=== PATIENT | female | born 1945 | race Caucasian/White ===

== ENCOUNTER → 2017-11-23 08:58 | Outpatient (CLI) | payer MEDICARE, SELFPAY ==
[2017-11-23 12:22] LABS: Absolute Lymphocyte Count 1.97 X10^3/ul (0.83-4.51); Absolute Neutrophil Count 3.4 X10^3/uL (2.0-7.7); Basophil# 0.02 X10^3/uL; Basophil% 0.3 % (0-1); Eosinophil# 0.21 X10^3/uL; Eosinophils% 3.5 % (0-5); Hematocrit 43.5 % (37-47); Hemoglobin 14.1 g/dl (12.0-15.0); Lymphocyte # 1.97 X10^3/ul (4.0); Lymphocyte % 32.4 % (19-41); Mean Corp Hgb Conc 32.4 g/gl (32-36); Mean Corpuscular Hgb 27.2 pg (27.0-32.0); Mean Corpuscular Volume 83.8 fL (81-99); Mean Platelet Vol. 11.4 fl (6.2-12.0); Monocyte# 0.43 X10^3/uL; Monocyte% 7.1 % (0-10); Neutrophil # 3.44 X10^3/uL (2.7-7.7); Neutrophil % 56.5 % (47-70); Platelet Count 164 K/mm3 (150-450); RBC Distribution Width CV 14.4 % (11.6-14.6); RBC Distribution Width SD 44.2 fl (35.1-43.9); Red Blood Count 5.19 M/mm3 (4.2-5.4); White Blood Count 6.1 K/mm3 (4.4-11.0)
[2017-11-23 12:27] LABS: POSITIVE COUNT NO; POSITIVE DIFFERENTIAL NO; POSITIVE MORPHOLOGY NO
[2017-11-23 12:40] LABS: AST(SGOT) 23 U/L (15-37); Alanine Aminotransfer ALT/SGPT 29 U/L (13-56); Albumin, Serum 3.5 g/dL (3.2-5.0); Alkaline Phosphatase 91 U/L (45-117); Anion Gap 9 (5-15); BUN 17 mg/dL (7-18); BUN/Creat Ratio 14.5 RATIO (10-20); Calcium,Total 8.3 mg/dL (8.5-10.1); Chloride 109 mmol/L (98-107); Cholesterol 182 mg/dL (200); Creatinine, Serum 1.17 mg/dL (0.55-1.02); EST Glomerular Filtration Rate 49 mL/min (>60); Est Glom Filt Rate - Afr Amer 59 mL/min (>60); Globulin 3.6 g/dL (2.2-4.2); Glucose 117 mg/dL (74-106); High Density Lipoprotein 41 mg/dL; Potassium 3.9 mmol/L (3.5-5.1); Protein, Total 7.1 g/dL (6.4-8.2); Sodium Level 143 mmol/L (136-145); Triglycerides 155 mg/dL; Very Low Density Lipoprotein 31 mg/dL (5-40)
== END ==
LOC: MTLAB 09:06
PROVIDERS: Family Provider Internal Medicine; PCP Internal Medicine; Visit Provider Internal Medicine
DX: I10 Essential (primary) hypertension (principal)
CPT/HCPCS: 36415; 80053; 80061; 85025

== ENCOUNTER 2017-12-06 23:26 | Observation (INO) | payer MEDICARE, SELFPAY ==
[2017-12-06 23:26] VITALS: BP 198/123; PULSE 71; RESP 16; TEMP 36.7; O2SAT 94; BMI 41.4
[2017-12-06 23:38] VITALS: O2SAT 98
[2017-12-06 23:52] LABS: Absolute Lymphocyte Count 2.69 X10^3/ul (0.83-4.51); Absolute Neutrophil Count 5.7 X10^3/uL (2.0-7.7); Basophil# 0.03 X10^3/uL; Basophil% 0.3 % (0-1); Eosinophil# 0.28 X10^3/uL; Hemoglobin 14.6 g/dl (12.0-15.0); Lymphocyte # 2.69 X10^3/ul (4.0); Lymphocyte % 28.4 % (19-41); Mean Corpuscular Hgb 27.9 pg (27.0-32.0); Mean Corpuscular Volume 82.2 fL (81-99); Mean Platelet Vol. 11.1 fl (6.2-12.0); Monocyte# 0.75 X10^3/uL; Monocyte% 7.9 % (0-10); Neutrophil % 60.2 % (47-70); Platelet Count 183 K/mm3 (150-450); RBC Distribution Width CV 14.3 % (11.6-14.6); RBC Distribution Width SD 43.4 fl (35.1-43.9); Red Blood Count 5.23 M/mm3 (4.2-5.4); White Blood Count 9.5 K/mm3 (4.4-11.0)
[2017-12-06 23:57] LABS: POSITIVE COUNT NO; POSITIVE DIFFERENTIAL NO; POSITIVE MORPHOLOGY NO
[2017-12-06 23:58] LABS: Prothrombin Time (Protime)PT. 13.5 SECONDS (11.7-14.9)
[2017-12-07] VITALS (14 sets, daily range): BP systolic 122–172; BP diastolic 61–134; PULSE 40–64; RESP 16; TEMP 36.3–36.7; O2SAT 92–100; BMI 40.8; BMI 40.9
[2017-12-07 00:07] LABS: BUN 27 mg/dL (7-18); Creatinine, Serum 1.37 mg/dL (0.55-1.02); EST Glomerular Filtration Rate 40 mL/min (>60); Estimated Creatinine Clearance 29.79 ml/min; Glucose 157 mg/dL (74-106)
[2017-12-07 00:08] LABS: Anion Gap 5 (5-15); BUN/Creat Ratio 19.7 RATIO (10-20); Calcium,Total 8.7 mg/dL (8.5-10.1); Chloride 108 mmol/L (98-107); Est Glom Filt Rate - Afr Amer 49 mL/min (>60); Potassium 4.2 mmol/L (3.5-5.1); Sodium Level 141 mmol/L (136-145)
[2017-12-07] MEDS: Nitroglycerin Oint 1 INCH PACKET 0.5 INCH TRANSDERM. (00:08)
[2017-12-07] MEDS: Aspirin 81 MG TAB.CHEW 324 MG PO (00:10)
--- NOTE | 2017-12-07 00:45 | NURSING ---
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
[2017-12-07] MEDS: amLODIPine 10 MG Tablet PO (00:46)
--- NOTE | 2017-12-07 00:46 | PCM.HP.STD ---
Problem List (1) Hypertension Status: Acute (2) Chest pain Status: Acute (3) Left knee pain Status: Chronic (4) Hypersomnolence Status: Chronic (5) Breast lump Status: Resolved Comment: Benign Biopsy (6) Blood clot in vein Status: Resolved (7) Vision problems Status: Chronic (8) Pneumonia Status: Resolved (9) Kidney stones Status: Chronic (10) H/O emotional problems Status: Chronic (11) Chronic bronchitis Status: Chronic (12) Asthma Status: Chronic (13) Arthritis Status: Chronic (14) Environmental allergies Status: Chronic History of Present Illness Date of Admission: 12/07/17 Chief Complaint: Chest pain The patient is a 72 year old F with history of hypertension on amlodipine chest pain since afternoon today. She had midsternal chest pain, feeling like a pressure with no radiation without precipitating, exacerbating or relieving factor. Patient also felt that she could not breathe. She denies diaphoresis, near syncope or syncope. In ED, her blood pressure was found very high 198/123, heart rate 71. After giving blood pressure medicine, BP is 160/134. No hypoxia. EKG normal sinus rhythm. [] Past Medical History Past Medical History (Chronic Problems): Chronic Problems (Last Updated 11/21/17 @ 14:28 by Ruby Syed) Left knee pain (Chronic) Hypersomnolence (Chronic) Vision problems (Chronic) Kidney stones (Chronic) H/O emotional problems (Chronic) Chronic bronchitis (Chronic) Asthma (Chronic) Arthritis (Chronic) Environmental allergies (Chronic) Medical History: Medical History (Last Updated 11/21/17 @ 14:28 by Ruby Syed) Breast lump (Resolved) N63.0 Benign Biopsy Blood clot in vein (Resolved) I82.90 Vision problems (Chronic) H54.7 Pneumonia (Resolved) J18.9 Kidney stones (Chronic) N20.0 High blood pressure (Chronic) I10 H/O emotional problems (Chronic) F48.9 Chronic bronchitis (Chronic) J42 Asthma (Chronic) J45.909 Arthritis (Chronic) M19.90 Environmental allergies (Chronic) Z91.09 Fractures involving multiple body regions T07.XXXA 2007 AA Heel, Rt Wrist, Ribs, Upper Rt Arm 2011 or 2012 Allergies Penicillins Allergy (Verified 11/21/17 14:10) Hives Home Medications: Ambulatory Orders Medication Instructions Recorded Amlodipine Besylate [Norvasc] 5 mg PO DAILY 12/06/17 Surgical History: Surgical History (Last Updated 11/21/17 @ 14:28 by Ruby Syed) History of hysterectomy Z90.710 1996 History of shoulder surgery Z98.890 Had a benign tumor History of tonsillectomy Z90.89 1971 Smoking Status: Never smoker - *Family History Maternal Family History: Family History (Last Updated 11/21/17 @ 14:20 by Ruby Syed) Father Alcoholism Asthma Mother Anxiety Blood clot in vein Myocardial infarction Grandmother Blood clot in vein Myocardial infarction Brother Myocardial infarction Aunt Breast cancer Grandmother CVA (cerebral vascular accident) Daughter Suicide attempt History Items: Heart Disease Sibling Family History: Family History (Last Updated 11/21/17 @ 14:20 by Ruby Syed) Father Alcoholism Asthma Mother Anxiety Blood clot in vein Myocardial infarction Grandmother Blood clot in vein Myocardial infarction Brother Myocardial infarction Aunt Breast cancer Grandmother CVA (cerebral vascular accident) Daughter Suicide attempt History Items: Heart Disease Review of Systems Constitutional: Denies: Chills, Fever, Weight Change HEENT: Denies: Head Aches, Sinus Congestion, Sinus Drainage Cardiovascular: Reports: Chest Pain, Chest Pressure. Denies: Palpitations Respiratory: Reports: Shortness of breath at rest. Denies: Cough, Sputum production Gastrointestinal: Denies: Abdominal Pain, Nausea, Vomiting Genitourinary: Denies: Dysuria Musculoskeletal: Denies: Joint Pain, Joint Tenderness Skin: Denies: Rash, Wounds Neurological: Denies: Numbness, Tingling, Focal weakness Psychiatric: Denies: Anxiety, Depression, Homicidal Ideations, Suicidal Ideations Hematologic/ Lymphatic: Denies: Easy Bruising, Easy Bleeding VTE Information - Inpt Only VTE Present on Admission: No VTE Mechan Device Prophylaxis: None VTE Pharm Prophylaxis ordered?: Yes Patient Problems: Active and Suspected Problems (Last Updated 11/21/17 @ 14:28 by Ruby Syed) Hypertension (Acute) Chest pain (Acute) - Physical Exam General: Alert, Oriented x3, Cooperative HEENT: Atraumatic, PERRLA, EOMI, Normocephalic Neck: Supple, No JVD, Negative Carotid Bruits Lungs: Clear to auscultation, Normal air movement Cardiovascular: Regular rate, Normal S1, Normal S2, No murmurs Abdomen: Bowel Sounds Present, Soft, Non Tender Extremities: Capillary Refill Less than 3 Seconds, Edema Skin: No rashes, No breakdown Musculoskeletal: No Tenderness to Palpation of Joints or Extremities Neurological: Cranial nerves II-XII grossly intact Psych/Mental Status: Normal Affect, Appropriate Vital Signs Temp Pulse Resp BP Pulse Ox 98.0 F 64 16 172/85 H 98 12/06/17 23:26 12/07/17 00:08 12/06/17 23:26 12/07/17 00:08 12/06/17 23:38 Assessment/Plan All Active Problems (Last Updated 11/21/17 @ 14:28 by Ruby Syed) Hypertension (Acute) Chest pain (Acute) Breast lump (Resolved) Blood clot in vein (Resolved) Pneumonia (Resolved) The patient is a 72 year old F with history of hypertension on amlodipine chest pain since afternoon today. She had midsternal chest pain, feeling like a pressure with no radiation without precipitating, exacerbating or relieving factor. Patient also felt that she could not breathe. She denies diaphoresis, near syncope or syncope. In ED, her blood pressure was found very high 198/123, heart rate 71. After giving blood pressure medicine, BP is 160/134. No hypoxia. EKG normal sinus rhythm. Initial blood work up in the ER shows troponin negative. Creatinine 1.37, BUN 27 otherwise not remarkable. Chest x-ray no active pulmonary disease. 1. Atypical chest pain with concern of acute coronary syndrome: Patient is being admitted on PCU floor. On ACS protocol with serial troponin enzymes and Lexiscan nuclear stress test tomorrow morning. On aspirin, nitroglycerin ointment. 2. Hypertensive urgency: Patient received 10 mg amlodipine in ER. Started on lisinopril 10 mg daily. On metoprolol 12.5 mg p.o. twice daily. 3. 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 She had ankle edema even before starting amlodipine. DVT prophylaxis: On Lovenox 40 mils subcu daily. This note was generated with [employer] dictation software. Every effort was made to ensure accuracy, however computerized manager data warehousing mistakes may persist. Code Visit OBSV E&M: 22083 Initial observation care L3
--- NOTE | 2017-12-07 00:50 | ED.DCSUM_ITS ---
- ER Visit Summary Date of Service: 12/07/17 Chief Complaint: Chest pain History of Present Illness: The patient is a 72 F presenting for evaluation secondary chest pain. Patient reports that since about noon today she has had continuous chest pain that she describes as a generalized heaviness. It was associated with exertional shortness of breath. Patient reports that the pain is somewhat worse when she exerts herself. She does have an underlying history of hypertension, denies any cardiovascular history. She does have a history of DVT in the past, but denies any recent travel surgery hemoptysis or exogenous hormone use. Patient states that she took some nitroglycerin at home that belongs to her and it made her chest pain feel better. She has never had cardiac stress testing in the past. Physical Examination: Vital signs are within normal limits, except for hypertension blood pressure 190s over 130s patient is afebrile. General: Patient is well-nourished well-developed and in no acute distress. Head: Normocephalic, atraumatic Eyes: Pupils equal round and reactive bilaterally, extra occular motion intact bialterally ENT: Moist mucous membranes Neck: Supple, no lymphadenopathy, no JVD, no meningismus CVS: Heart regular rate and rhythm, no murmurs, rubs or gallops, radial pulses 2 + bilaterally, occasional extrasystoles Resp: Respirations nondistressed, lung sounds clear bilaterally Abdomen: Soft, nontender, nondistended, no palpable masses, normal bowel sounds Back: Nontender Extremities: Nontender, atraumatic, active full range of motion, no peripheral edema Skin: warm, no rashes, no petechia Neuro: Alert and oriented x 4, CN 2-12 intact, no lateralizing neurological defecits Psyc: Normal affect Test Results: EKG shows normal sinus rhythm with occasional PACs no evidence of acute ST segment changes or T-wave changes. CBC chemistry troponin were unremarkable, chest x-ray was unremarkable Emergency Department Course and Treatment: Patient presented for evaluation secondary chest pain. She was significantly hypertensive in the emergency department so I half inch of nitroglycerin paste was placed on her chest repeat evaluation showed the patient to be pain-free. Her heart score is 4, I believe she requires admission. I discussed this with the hospitalist. Disposition: Admission Impression: 1. Chest pain 2. Poorly controlled hypertension This note was generated with [employer] dictation software. It may contain incorrect words, spelling, and punctuation that were not noted in review of the chart prior to signing ED Disposition - Plan for ED Patient: Chief Complaint: Chest Pain
[2017-12-07] MEDS: Metoprolol Tartrate 25 MG Tablet 12.5 MG PO (01:55)
[2017-12-07 02:56] LABS: BNP,B-Type NATRIURETIC PEPTIDE 28.4 pg/mL (0-100)
[2017-12-07 05:57] LABS: Absolute Lymphocyte Count 2.57 X10^3/ul (0.83-4.51); Absolute Neutrophil Count 4.2 X10^3/uL (2.0-7.7); Basophil# 0.02 X10^3/uL; Basophil% 0.3 % (0-1); Eosinophil# 0.28 X10^3/uL; Eosinophils% 3.5 % (0-5); Hematocrit 40.6 % (37-47); Hemoglobin 12.8 g/dl (12.0-15.0); Lymphocyte # 2.57 X10^3/ul (4.0); Lymphocyte % 32.3 % (19-41); Mean Corp Hgb Conc 31.5 g/gl (32-36); Mean Corpuscular Hgb 26.7 pg (27.0-32.0); Mean Corpuscular Volume 84.8 fL (81-99); Mean Platelet Vol. 10.9 fl (6.2-12.0); Monocyte# 0.87 X10^3/uL; Monocyte% 10.9 % (0-10); Neutrophil % 52.9 % (47-70); Platelet Count 151 K/mm3 (150-450); RBC Distribution Width CV 14.3 % (11.6-14.6); RBC Distribution Width SD 44.6 fl (35.1-43.9); Red Blood Count 4.79 M/mm3 (4.2-5.4)
[2017-12-07] MEDS: Aspirin E.C. 81 MG Tablet PO (06:01)
[2017-12-07 06:02] LABS: POSITIVE COUNT NO; POSITIVE DIFFERENTIAL NO; POSITIVE MORPHOLOGY NO
[2017-12-07] MEDS: Lisinopril 10 MG Tablet PO (06:02)
[2017-12-07 06:11] LABS: Partial Thromboplast Time 27.4 Seconds (24.1-36.2)
[2017-12-07 06:21] LABS: Anion Gap 10 (5-15); BUN 30 mg/dL (7-18); BUN/Creat Ratio 25.6 RATIO (10-20); Calcium,Total 8.3 mg/dL (8.5-10.1); Chloride 110 mmol/L (98-107); Cholesterol 156 mg/dL (200); Creatinine, Serum 1.17 mg/dL (0.55-1.02); EST Glomerular Filtration Rate 49 mL/min (>60); Est Glom Filt Rate - Afr Amer 59 mL/min (>60); Estimated Creatinine Clearance 34.88 ml/min; Glucose 126 mg/dL (74-106); High Density Lipoprotein 41 mg/dL; Potassium 4.4 mmol/L (3.5-5.1); Sodium Level 144 mmol/L (136-145); Thyroid Stim Hormone (TSH) 0.91 uIU/mL (0.358-3.74); Triglycerides 103 mg/dL; Very Low Density Lipoprotein 21 mg/dL (5-40)
--- NOTE | 2017-12-07 13:10 | PCM.DC ---
- Discharge Diagnoses Current Active Problems: Current Active and Chronic Problems (Last Updated 11/21/17 @ 14:28 by Ruby Syed) Hypertension (Acute) Chest pain (Acute) You will use the following diet at home:: Cardiac Discharge Activity: Return to Normal Activity Call your doctor if you observe: Shortness of breath, Dizziness, Fainting spells, Chest pain Allergies/Adverse Reactions: Allergies Penicillins Allergy (Verified 11/21/17 14:10) Hives Medications to take at Discharge Amlodipine [Norvasc] 10 mg PO DAILY #30 tab 12/07/17 Lisinopril [Zestril] 10 mg PO DAILY #30 tab 12/07/17 The following prescriptions were given: Amlodipine [Norvasc] 10 mg PO DAILY #30 tab Lisinopril [Zestril] 10 mg PO DAILY #30 tab Primary Care Physician: Michael Corcoran MD [Primary Care Provider] - Please follow up with your Primary Care Physician in: 1 Week Test Results: Test results from this visit will be discussed in further detail at your follow-up appointment, if applicable. Proposed Discharge Date: 12/07/17
--- NOTE | 2017-12-07 13:12 | PCM.DC.SUM ---
<Bee Ramos - Last Filed: 12/07/17 13:20> Discharge Date and Diagnosis Date of Admission: 12/07/17 Date of Discharge: 12/07/17 - Primary Discharge Diagnosis Active and Suspected Problems (Last Updated 11/21/17 @ 14:28 by Ruby Syed) 1. Hypertensive urgency 2. Chest pain, ACS ruled out- suspect secondary to uncontrolled hypertension. - Secondary Discharge Diagnosis Chronic Problems (Last Updated 11/21/17 @ 14:28 by Ruby Syed) Left knee pain (Chronic) Hypersomnolence (Chronic) Vision problems (Chronic) Kidney stones (Chronic) H/O emotional problems (Chronic) Chronic bronchitis (Chronic) Asthma (Chronic) Arthritis (Chronic) Environmental allergies (Chronic) Hospital Course and Treatment Imaging Results: Diagnostic Data Chest X-Ray 12/06/17 23:39 IMPRESSION: No active pulmonary disease. Electronically Signed: Mohit Frank MD at 0:17 EDT Tel , Service support , Operations: None Procedures: - - Stress echo Summary of Care Provided: The patient is a 72 year old F admitted 12/07/2017 due to chest pain. She has a past medical history of hypertension. Denies other history of heart disease. ACS ruled out. Troponin negative. Patient underwent stress echo which was negative for ischemia. EF 60%. No wall motion abnormalities. Patient denies further chest pain. She was noted to have hypertensive urgency on admission with a blood pressure of 198/123. Her home amlodipine regimen increased to 10 mg daily on admission and patient was started on lisinopril 10 mg daily. Blood pressure improved on current regimen. Blood pressure at discharge 122/62. Fasting lipid panel within normal limits. Patient will need further blood pressure monitoring at discharge. Follow-up with primary care physician in 1 week. Her chronic medical conditions including chronic bronchitis/asthma, arthritis, seasonal allergies and chronic kidney disease stage III are stable at this time. Patient does have a remote history of DVT and 1990 which has not reoccurred. Patient denies calf discomfort or increased lower extremity swelling. Patient states she does have intermittent lower extremity bilateral swelling chronically. Patient seen and examined prior to discharge. Alert, oriented, no acute distress. Denies further chest pain. Denies shortness of breath. Lungs clear. Heart rate regular in rhythm, mild bradycardia. Abdomen soft, nontender, obese. Neuro grossly intact. Skin intact. No edema. Normal affect. Vital signs stable. This patient was seen by TYSHAWN Ann under the supervision of Dr. Morataya. Discharge Diet: Low fat/ Low Cholesterol Discharge Activity: Return to Normal Activity Call your doctor if you observe: Shortness of breath, Dizziness, Fainting spells, Chest pain Home Medications: Medications to take at Discharge Amlodipine [Norvasc] 10 mg PO DAILY #30 tab 12/07/17 Lisinopril [Zestril] 10 mg PO DAILY #30 tab 12/07/17 Following Prescrptions Were Given to Patient: Amlodipine [Norvasc] 10 mg PO DAILY #30 tab Lisinopril [Zestril] 10 mg PO DAILY #30 tab Primary Care Physician: Michael Corcoran MD [Primary Care Provider] - Please follow up with your Primary Care Physician in: 1 Week Disposition: Home Minutes spent on discharge:: 35 Patient Condition:: Stable Medical Necessity - Tobacco Use Smoking Status: Never smoker Meaningful Use Info Meaningful Use Diagnoses (Choose all that apply): None applicable <Sharon Morataya E - Last Filed: 12/07/17 14:37> Discharge Date and Diagnosis - Secondary Discharge Diagnosis Chronic Problems (Last Updated 11/21/17 @ 14:28 by Ruby Syed) Left knee pain (Chronic) Hypersomnolence (Chronic) Vision problems (Chronic) Kidney stones (Chronic) H/O emotional problems (Chronic) Chronic bronchitis (Chronic) Asthma (Chronic) Arthritis (Chronic) Environmental allergies (Chronic) Hospital Course and Treatment Imaging Results: 12/07/17 07:47 Stress Test Echo w/o Contrast [ECHO] Routine Procedures: - Summary of Care Provided: Hospitalist note: Discharge summary above reviewed and I agree with above discharge plan. Patient was admitted for chest pain for evaluation. Upon arrival to ER, blood pressure was highly elevated and maximum was 198/123 consistent with hypertensive urgency. There was no evidence of endorgan damage. Her EKG revealed no evidence of acute ischemic changes. Her troponin was negative ?3. Chest x-ray showed no acute findings. Patient was taking only admit to being 5 mg p.o. daily for hypertension. Because of elevated blood pressure, amlodipine was increased to 10 mg p.o. daily and she was started on lisinopril 10 mg p.o. daily. His blood pressure improved overnight. She underwent stress echocardiogram that revealed normal resting LV systolic function and without evidence of stress-induced myocardial ischemia as well as normal dobutamine stress echo with no wall motion abnormalities. ACS ruled out. Chest pain is likely due to elevated blood pressure. Patient discharged home in a stable medical condition, discharged on Norvasc 10 mg p.o. daily, discharged on lisinopril 10 mg p.o. daily, recommended follow-up with PCP in 1 week. - Physical Exam General: Alert, Oriented x3, Cooperative, No apparent distress. HEENT: Atraumatic, PERRLA, EOMI. Neck: Supple, No JVD, Negative Carotid Bruits, Trachea Midline, Thyroid Normal. Lungs: Clear to auscultation, Normal air movement, No rhonchi, No wheeze, No rales. Cardiovascular: Regular rate, Regular Rhythm, Normal S1, Normal S2, PMI Normal. Abdomen: Bowel Sounds Present, Soft, Non Tender, Non-Distended, No Hepato-splenomegaly, obese. Extremities: No clubbing, No cyanosis, No edema Skin: No rashes, No breakdown Neurological: Neuro grossly intact Vital Signs are stable. This note was generated with [employer] dictation software. It may contain incorrect words, spelling, and punctuation that were not noted in checking the note before signing. Disposition: Home Minutes spent on discharge:: 25 Patient Condition:: Stable Meaningful Use Info Meaningful Use Diagnoses (Choose all that apply): None applicable Code Visit OBSV E&M: 06494 Observation care discharge
== END 2017-12-07 13:10 | disposition home or self-care (01) ==
LOC: ED 23:52 → PCU 12-07 00:40
PROVIDERS: Admitting Provider Internal Medicine; Emergency Provider Emergency Medicine; Family Provider Internal Medicine; PCP Internal Medicine; Visit Provider Hospitalist
DX: R07.89 Other chest pain (principal); R06.02 Shortness of breath; Z86.718 Personal history of other venous thrombosis and embolism; I10 Essential (primary) hypertension; J45.909 Unspecified asthma, uncomplicated; M19.90 Unspecified osteoarthritis, unspecified site; I16.0 Hypertensive urgency
CPT/HCPCS: 36415; 71045; 80048; 80061; 83880; 84443; 84484; 85025; 85610; 85730; 93005; 93017; 93350; 99218; 99284; J7030; A4216; G0378; J2785

== ENCOUNTER → 2017-12-22 16:16 | Outpatient (CLI) | payer MEDICARE, SELFPAY | PROVIDERS: Family Provider Internal Medicine; PCP Internal Medicine; Visit Provider Internal Medicine | DX: Z12.31 Encounter for screening mammogram for malignant neoplasm of breast (principal) | CPT/HCPCS: 77063; 77067 ==

== ENCOUNTER → 2017-12-29 13:58 | Outpatient (CLI) | payer MEDICARE, SELFPAY ==
--- NOTE | 2017-12-29 14:01 | US_ITS ---
STUDY: ULTRASOUND BREAST - RIGHT REASON FOR EXAM: Female, 72 years old. Abnormal screening mammogram. TECHNIQUE: Axial and longitudinal images of the RIGHT breast were performed with a high resolution ultrasound transducer. COMPARISON: Comparison is made with prior mammogram dated December 22, 2017. FINDINGS: RIGHT Breast: 2 cysts are seen. At the 9:00 position breast at 1 cm from the nipple, there is an 8 mm x 5 mm x 5 mm cyst. Adjacent to this, there is a 6 mm x 5 mm x 5 mm cyst. There is also evidence of a dilated subareolar ducts. IMPRESSION: 2 cysts are seen at the 9:00 position the breast at 1 cm from the nipple. ASSESSMENT CATEGORY: BIRADS Category 2: Benign. A letter regarding these results will be sent to the patient by the facility within 30 days. Electronically Signed: Augustin Ruiz MD at 8:37 EDT Tel [phone], Service support , STUDY: ULTRASOUND BREAST - LEFT REASON FOR EXAM: Female, 72 years old. Abnormal screening mammogram. TECHNIQUE: Axial and longitudinal images of the LEFT breast were performed with a high resolution ultrasound transducer. COMPARISON: Comparison is made with prior mammogram dated December 22, 2017 and prior sonogram of the left breast dated September 22, 2011. FINDINGS: LEFT Breast: There is an 8 mm x 9 mm x 7 mm cyst at the 1:00 position of the breast at 1 cm from the nipple. It is also evidence of a 7 mm x 9 mm x 4 mm cyst at the 4:00 position of the breast at 2 cm from nipple. There is also evidence of dilated subareolar ducts. US/Breast Limited Unilateral IMPRESSION: 2 cysts are seen in the left breast. Dilated subareolar ducts. ASSESSMENT CATEGORY: BIRADS Category 2: Benign. A letter regarding these results will be sent to the patient by the facility within 30 days. Electronically Signed: Augustin Ruiz MD at 8:38 EDT Tel [phone], Service support ,
--- NOTE | 2017-12-29 14:51 | US_ITS ---
STUDY: ULTRASOUND BREAST - RIGHT REASON FOR EXAM: Female, 72 years old. Abnormal screening mammogram. TECHNIQUE: Axial and longitudinal images of the RIGHT breast were performed with a high resolution ultrasound transducer. COMPARISON: Comparison is made with prior mammogram dated December 22, 2017. FINDINGS: RIGHT Breast: 2 cysts are seen. At the 9:00 position breast at 1 cm from the nipple, there is an 8 mm x 5 mm x 5 mm cyst. Adjacent to this, there is a 6 mm x 5 mm x 5 mm cyst. There is also evidence of a dilated subareolar ducts. IMPRESSION: 2 cysts are seen at the 9:00 position the breast at 1 cm from the nipple. ASSESSMENT CATEGORY: BIRADS Category 2: Benign. A letter regarding these results will be sent to the patient by the facility within 30 days. Electronically Signed: Augustin Ruiz MD at 8:37 EDT Tel [phone], Service support , STUDY: ULTRASOUND BREAST - LEFT REASON FOR EXAM: Female, 72 years old. Abnormal screening mammogram. TECHNIQUE: Axial and longitudinal images of the LEFT breast were performed with a high resolution ultrasound transducer. COMPARISON: Comparison is made with prior mammogram dated December 22, 2017 and prior sonogram of the left breast dated September 22, 2011. FINDINGS: LEFT Breast: There is an 8 mm x 9 mm x 7 mm cyst at the 1:00 position of the breast at 1 cm from the nipple. It is also evidence of a 7 mm x 9 mm x 4 mm cyst at the 4:00 position of the breast at 2 cm from nipple. There is also evidence of dilated subareolar ducts. US/Breast Limited Unilateral IMPRESSION: 2 cysts are seen in the left breast. Dilated subareolar ducts. ASSESSMENT CATEGORY: BIRADS Category 2: Benign. A letter regarding these results will be sent to the patient by the facility within 30 days. Electronically Signed: Augustin Ruiz MD at 8:38 EDT Tel [phone], Service support ,
== END ==
LOC: OPUS 13:59
PROVIDERS: Family Provider Internal Medicine; PCP Internal Medicine; Visit Provider Internal Medicine
DX: R92.8 Other abnormal and inconclusive findings on diagnostic imaging of breast (principal)
CPT/HCPCS: 76642

== ENCOUNTER → 2018-01-17 08:45 | Outpatient (CLI) | payer MEDICARE, SELFPAY ==
--- NOTE | 2018-01-17 | BRBX_PTH ---
PATIENT: PAUL BARONE LOC: [facility] U#:[id number] AGE/SX: 79/F ROOM: RE01/17/[address]: Dr. Melyssa Saab MD : 1945 BED: DIS: SPEC #: [id number] RECD: 01/17/18 13:56 STATUS: ARSENIO REFarahd #: [id number] LIONEL: 01/17/18 00:[address]: Melyssa Saab DEPT: SURGICAL PATHOLOGY RECD BY: Jesus Arvizu ENTERED: 01/17/18 13:57 SP TYPE: BREAST BX OTHR DR: Dr. Michael Corcoran MD Tissues: Left breast, NOS Procedures: Surgery Specimen Level IV HEADER OPERATION: Left breast biopsy PRE-OP DIAGNOSIS: Left breast mass TISSUE SUBMITTED: Left breast tissue ISCHEMIC TIME: 20 seconds FIXATION TIME: 10.5 hours MICROSCOPIC DIAGNOSIS Left breast mass, core biopsy: Focal ductal dilatation and fibrosis. Negative for atypia or malignancy. SJ:rajeev 01/18/18 COMMENT Correlation with clinical, radiologic findings and appropriate follow up are necessary. MICROSCOPIC DESCRIPTION Slides are reviewed. GROSS DESCRIPTION Received in fixative is one container labeled with the patient's name and designated left breast. The specimen consists of multiple elongated fragments of eric-yellow fibroadipose tissue that in aggregate measure 1.5 x 0.1 x 0.1 cm. The entire specimen is submitted in one cassette. / GALE:rajeev 01/17/18 TC:5 CPT: 98775
== END ==
LOC: LABSPEC 13:09
PROVIDERS: Family Provider Internal Medicine; PCP Internal Medicine; Referring Provider Surgery; Visit Provider Surgery
DX: N63.20 Unspecified lump in the left breast, unspecified quadrant (principal)
CPT/HCPCS: 88305

== ENCOUNTER → 2018-01-31 08:36 | Outpatient (CLI) | payer MEDICARE, SELFPAY ==
--- NOTE | 2018-01-31 08:41 | RAD_ITS ---
STUDY: X-RAY - LEFT FOOT CLINICAL: Female, 72 years old. Left foot pain. Heel fracture 10 years ago. TECHNIQUE: 3 view(s) of the foot. COMPARISON: Left calcaneus August 08, 2007. FINDINGS: Bones are osteopenic. Deformity of the calcaneus compatible with an old fracture. Plantar calcaneal bone spur. Normal visualized subtalar, talonavicular, calcaneocuboid, tarsal and tarsometatarsal articulations. Normal metatarsi. Normal metatarsophalangeal joint of the great toe. Normal tibial and fibular sesamoid bones. Normal interphalangeal joint of the great toe. Normal phalanges of the great toe. Normal second through fifth metatarsophalangeal joints. Normal interphalangeal joints and phalanges of the lesser toes. The soft tissue structures are unremarkable. RAD/Foot min 3 Views IMPRESSION: No acute findings in the foot. Old fracture of the calcaneus. Plantar calcaneal bone spur. Electronically Signed: Usama Flores MD at 2:08 EDT , Service support ,
[2018-01-31 10:51] LABS: Microalbumin,Random Urine 13.8 mg/L (NO RANGE EST.); Microalbumin:Creatinine Ratio 5.5 mg/g CRE (<30 mg/g CRE)
[2018-01-31 11:46] LABS: Hemoglobin A1c 6.3 % (4.2-6.3)
== END ==
LOC: MTLAB 08:38
PROVIDERS: Family Provider Internal Medicine; PCP Internal Medicine; Referring Provider Internal Medicine; Visit Provider Internal Medicine
DX: R73.9 Hyperglycemia, unspecified (principal); I10 Essential (primary) hypertension; M79.672 Pain in left foot
CPT/HCPCS: 36415; 73630; 82043; 82570; 83036

== ENCOUNTER 2018-02-26 17:27 | Emergency (ER) | payer MEDICARE, SELFPAY ==
[2018-02-26 17:29] VITALS: BP 188/100; PULSE 65; RESP 18; TEMP 36.5; O2SAT 98; BMI 39.4
--- NOTE | 2018-02-26 17:51 | ED.DCSUM_ITS ---
- ER Visit Summary Date of Service: 02/26/18 Chief Complaint: Rash History of Present Illness: The patient is a 72 F who presents with a rash that began yesterday. Patient states the rash has spread today. Patient states she noticed the rash yesterday on the left side of her neck and today it has spread down onto her upper chest. Patient denies any pain. Patient denies any discharge or drainage. Patient states the rash is actually pruritic. Patient also admits to a scratchy sore throat. Patient admits to low-grade fever at home. Patient felt like her temperature was up to 100. Patient denies any chest pain or shortness of breath. Patient denies any nausea or vomiting. Patient denies any other symptoms. Physical Examination: Vital signs are stable. Patient is afebrile. Patient is in no acute distress. Skin is warm dry. There is an erythematous vesicular rash along the left T1 dermatome. There is no active discharge or drainage noted. Oral mucosa is pink and moist. Oropharynx is clear. There is some mild postnasal drainage but there are no exudates. Tympanic membranes are clear bilaterally. Neck is supple. Trachea is midline. There is no JVD or lymphadenopathy noted. Heart was regular rate and rhythm. Lungs are clear and equal bilaterally. The remaining physical exam is within normal limits. Emergency Department Course and Treatment: Patient was given a prescription for Valtrex. Patient was instructed to follow-up with her primary care physician in 5-7 days. Patient understood and was agreeable with the plan. All questions were answered. Disposition: Discharge home Impression: Varicella-zoster This note was generated with [employer] dictation software. It may contain incorrect words, spelling, and punctuation that were not noted in review of the chart prior to signing ED Disposition - Plan for ED Patient: Disposition: Home or Assisted Living Chief Complaint: Rash Diagnosis: Varicella zoster Instructions: ED Shingles Prescriptions: Valacyclovir HCl [Valtrex] 1,000 mg PO TID 7 Days #21 tablet Referrals: Michael Corcoran MD [Primary Care Provider] -
--- NOTE | 2018-02-26 18:04 | ED.RN ---
RX FOR VALTREX. TO GIVEN 1 DOSE HERE. THERAPEUTIC INTERCHANGE PER PHARMACY. WAITING ON MED FROM PHARM
[2018-02-26] MEDS: Acyclovir 800 MG Tablet PO (18:18)
== END 2018-02-26 18:19 | disposition home or self-care (01) ==
LOC: ED 17:53
PROVIDERS: Emergency Provider Emergency Medicine; Family Provider Internal Medicine; PCP Internal Medicine
DX: B01.9 Varicella without complication (principal); B02.9 Zoster without complications; I10 Essential (primary) hypertension
CPT/HCPCS: 99283

== ENCOUNTER → 2018-07-05 10:55 | Outpatient (CLI) | payer MEDICARE, SELFPAY ==
[2018-05-23 09:21] VITALS: BMI 38.9
--- NOTE | 2018-07-05 10:57 | US_ITS ---
STUDY: ULTRASOUND BREAST - LEFT REASON FOR EXAM: Female, 72 years old. LT 4 MONTH F/U TECHNIQUE: Axial and longitudinal images of the LEFT breast were performed with a high resolution ultrasound transducer. COMPARISON: 12/29/2017 FINDINGS: LEFT Breast: There is a lesion #1 in the upper Outer quadrant. The lesion measures 0.4 x 0.7 x 2.5 cm in size. Clock notation: 1 o'clock position. Distance from nipple: 1 cm. Posterior Enhancement: No. Posterior Shadowing: None. Margins: Indistinct but smooth. Echogenicity: Isoechoic. Compression effect on Shape: No change. US/Breast Limited Unilateral IMPRESSION: Stable lesion in the left breast most likely represent a lymph node. There is a biopsy clip within this lesion. ASSESSMENT CATEGORY: BIRADS Category 2: Benign. A letter regarding these results will be sent to the patient by the facility within 30 days. Electronically Signed: Mario Kennedy, at 16:29 EDT Tel , Service support ,
== END ==
LOC: OPUS 10:56
PROVIDERS: Family Provider Internal Medicine; PCP Internal Medicine; Referring Provider Surgery; Visit Provider Surgery
DX: R92.8 Other abnormal and inconclusive findings on diagnostic imaging of breast (principal)
CPT/HCPCS: 76642

== ENCOUNTER 2018-09-29 13:27 | Emergency (ER) | payer MEDICARE, SELFPAY ==
[2018-08-22 13:45] VITALS: BMI 38.9
[2018-09-29 13:28] VITALS: BP 147/81; PULSE 86; RESP 18; TEMP 37.9; O2SAT 97; BMI 38.9
--- NOTE | 2018-09-29 13:44 | EKG12_ITS ---
Test Reason : NAUSEA AN V Blood Pressure : / mmHG Vent. Rate : 066 BPM Atrial Rate : 066 BPM P-R Int : 166 ms QRS Dur : 086 ms QT Int : 400 ms P-R-T Axes : 037 -28 026 degrees QTc Int : 419 ms Normal sinus rhythm with sinus arrhythmia Minimal voltage criteria for LVH, may be normal variant Borderline ECG Confirmed by RUTHIE NICHOLAS, AHRISH ([id number]), technical writer and editor KYREE LOTT ([id number]) on 10/03/2018 9:23:32 AM Referred By: TOI Confirmed By:HARISH HENDRICKS MD
--- NOTE | 2018-09-29 13:48 | ED.DCSUM_ITS ---
History of Present Illness Chief Complaint: Nausea/Vomiting/Diarrhea Informant: Patient, Family Onset: Today Narrative: Patient here with daughter evaluation of vomiting diarrhea since 5 AM this morning. Reports awakening at 4 AM feeling nauseated. Total of 5 or 6 episodes of vomiting last time was nearly 2 hours ago. States dry heaving. No hematemesis. Total of 3 episodes of diarrhea without melena or hematochezia last time was nearly 2 hours ago. No recent antibiotics. No fevers. No urinary symptoms. Denies any abdominal pain. History of laparoscopic hysterectomy in the past. No sick contacts. Ate home-cooked meal yesterday with daughter, no other individuals sick. States developed some chest discomfort after vomiting states mild. No dyspnea. States felt sweaty. No radicular symptoms. History of hypertension. No history of coronary disease. Stress test last November. Prior similar symptoms: No Past Medical History - Allergies and Home Meds Allergies/Adverse Reactions: Allergies Penicillins Allergy (Verified 09/29/18 13:31) Hives Primary Care Physician: Michael Corcoran MD [Primary Care Provider] - Smoking Status: Never smoker - Family History Maternal Family History: Family History (Last Reviewed 08/22/18 @ 13:42 by Ruby Syed) Father Alcoholism Asthma Mother Anxiety Blood clot in vein Myocardial infarction Grandmother Blood clot in vein Myocardial infarction Brother Myocardial infarction Aunt Breast cancer Grandmother CVA (cerebral vascular accident) Daughter Suicide attempt Family History: Reports: Heart Disease Sibling Family History: Family History (Last Reviewed 08/22/18 @ 13:42 by Ruby Syed) Father Alcoholism Asthma Mother Anxiety Blood clot in vein Myocardial infarction Grandmother Blood clot in vein Myocardial infarction Brother Myocardial infarction Aunt Breast cancer Grandmother CVA (cerebral vascular accident) Daughter Suicide attempt Family History: Reports: Heart Disease Review of Systems General: Denies: Chills, Fever, Sweats Eyes: Denies: Visual changes - bilaterally, Diplopia ENT: Denies: Rhinorrhea, Sore throat Cardiovascular: Reports: Chest pain. Denies: Palpitations Respiratory: Denies: Dyspnea, Cough, Dyspnea on exertion Gastrointestinal: Reports: Nausea, Vomiting, Diarrhea. Denies: Abdominal pain, Melena, Hematochezia Genitourinary: Denies: Dysuria, Hematuria, Frequency Musculoskeletal: Denies: Back pain, Extremity Pain Skin: Denies: Rash, Wounds Neurological: Denies: Headache, Weakness, Numbness Physical Exam Vital Signs/Narrative: Vital Signs Temp Pulse Resp BP Pulse Ox 09/29/18 13:28 100.2 F H 86 18 147/81 H 97 Inital Vital Signs reviewed: Yes General: Well nourished, Well developed, No Acute Distress Head: Normocephalic, Atraumatic Eyes: Perrl, EOMI ENT: No rhinorrhea, Dry mucous membranes Neck: Supple, Nontender Cardiovascular: Regular rate, Regular rhythm, No murmurs Respiratory: No distress, CTA bilaterally, Chest nontender Abdomen: Soft, Nontender, Nondistended, Normal bowel sounds, - - Negative McBurney's tenderness.. Negative for: Bustos's sign Back: Nontender, Normal Inspection Extremities: Nontender, No edema Skin: Normal color, No rash Neurological: Alert, Oriented x3, Cranial nerves II-XII grossly intact, Normal Strength, Normal Sensation Psychological: Normal affect, Normal Mood Diagnostic/Tx/Re-eval Chest X-Ray - ED: 2 View, No Acute Disease Abnormal Lab Results 09/29/18 09/29/18 13:40 13:40 WBC 11.0 RBC 5.32 Hgb 14.9 Hct 43.7 MCV 82.1 MCH 28.0 MCHC 34.1 RDW 13.7 RDW Differential 41.2 Plt Count 147 L MPV 11.0 Immature Gran % (Auto) 0.200 Neut % (Auto) 93.1 H Lymph % (Auto) 3.9 L Freestone % (Auto) 2.0 Eos % (Auto) 0.7 Baso % (Auto) 0.1 Absolute Neuts (auto) 10.2 H Absolute Lymphs (auto) 0.43 L Total Counted Not Reportable Differential Comment COMMENT Sodium 137 Potassium 4.0 Chloride 109 H Carbon Dioxide 24.0 Anion Gap 4 L BUN 25 H Creatinine 1.18 H Estim Creat Clear Calc 36.17 Est GFR (MDRD) Af Amer 58 L Est GFR (MDRD) Non-Af 48 L BUN/Creatinine Ratio 21.2 H Glucose 150 H Calcium 8.7 Troponin I < 0.015 - Medical Decision Making Patient vital signs stable, temp of 100.2. She denies fever symptoms. Denies urinary symptoms. Nonsurgical and nontender abdomen. Labs obtained white count normal electrolytes normal. Creatinine stable. She had dry mucosa membranes is given fluids. Reporting chest symptoms, EKG obtained with nonspecific T wave inversion in leads III. Chest x-ray negative. Troponin negative. CATE score is a 1. Heart score 3. Heart pathway guideline discussed with patient and daughter. She understands a 2% risk. Shared decision making discussed. She says symptoms wax and wane for 9 hours negative troponin discussed less likely cardiac in nature. Patient is tolerating oral intake in the ED. Discussed to continue oral hydration. Prescription of Zofran to use as needed. Signs and symptoms discussed return. All questions were answered. ED Disposition - Plan for ED Patient: Disposition: Home or Assisted Living Diagnosis: Nausea vomiting and diarrhea, Atypical chest pain Instructions: ED Diet Vomiting Diarrhea, ED Chest Pain Atypical Unkn Cause Prescriptions: Ondansetron [Zofran Odt] 4 mg PO Q8H PRN PRN #10 tablet PRN Reason: Nausea Referrals: Michael Corcoran MD [Primary Care Provider] - 3-5 Days
[2018-09-29] MEDS: Ondansetron 4 MG/2 ML Vial IV (13:53)
[2018-09-29] MEDS: 0.9% Normal Saline 1,000 ML 1000 ML IV (13:53)
--- NOTE | 2018-09-29 13:55 | RAD_ITS ---
STUDY: X-RAY CHEST REASON FOR EXAM: Female, 72 years old. Vomiting nausea and diarrhea. TECHNIQUE: PA and lateral views of the chest. COMPARISON: Comparison is made with prior study dated December 06, 2017. FINDINGS: EKG electrodes are seen. The lungs are clear and expanded. There is no demonstrated pleural abnormality. Normal size heart. Normal mediastinum and delicia. Normal visualized pulmonary arteries. There is atherosclerotic tortuosity of the aortic arch and descending thoracic aorta. There is demineralization of the osseous structures. Prior fracture of the small left humeral neck with the cement. There is no demonstrated abnormality of the visualized soft tissue structures of the upper abdomen. RAD/Chest PA and Lateral IMPRESSION: No acute abnormality is seen. Electronically Signed: Augustin Ruiz, at 14:13 EDT , Service support ,
[2018-09-29 13:56] LABS: Absolute Lymphocyte Count 0.43 X10^3/ul (0.83-4.51); Absolute Neutrophil Count 10.2 X10^3/uL (2.0-7.7); Basophil# 0.01 X10^3/uL; Basophil% 0.1 % (0-1); Eosinophil# 0.08 X10^3/uL; Eosinophils% 0.7 % (0-5); Hematocrit 43.7 % (37-47); Hemoglobin 14.9 g/dl (12.0-15.0); Lymphocyte # 0.43 X10^3/ul (4.0); Lymphocyte % 3.9 % (19-41); Mean Corp Hgb Conc 34.1 g/gl (32-36); Mean Corpuscular Volume 82.1 fL (81-99); Monocyte# 0.22 X10^3/uL; Neutrophil # 10.24 X10^3/uL (2.7-7.7); Neutrophil % 93.1 % (47-70); Platelet Count 147 K/mm3 (150-450); RBC Distribution Width CV 13.7 % (11.6-14.6); RBC Distribution Width SD 41.2 fl (35.1-43.9); Red Blood Count 5.32 M/mm3 (4.2-5.4)
[2018-09-29 13:58] LABS: Differential Indicated SCAN CRITERIA MET; POSITIVE COUNT NO; POSITIVE DIFFERENTIAL YES; POSITIVE MORPHOLOGY NO
[2018-09-29 14:09] LABS: Anion Gap 4 (5-15); BUN 25 mg/dL (7-18); BUN/Creat Ratio 21.2 RATIO (10-20); Calcium,Total 8.7 mg/dL (8.5-10.1); Chloride 109 mmol/L (98-107); Creatinine, Serum 1.18 mg/dL (0.55-1.02); EST Glomerular Filtration Rate 48 mL/min (>60); Est Glom Filt Rate - Afr Amer 58 mL/min (>60); Estimated Creatinine Clearance 36.17 ml/min; Glucose 150 mg/dL (74-106); Sodium Level 137 mmol/L (136-145)
[2018-09-29 16:00] VITALS: BP 152/73; PULSE 77; RESP 26; TEMP 37.7; O2SAT 96
== END 2018-09-29 16:01 | disposition home or self-care (01) ==
PROVIDERS: Emergency Provider Emergency Medicine; Family Provider Internal Medicine; PCP Internal Medicine
DX: R11.2 Nausea with vomiting, unspecified (principal); R19.7 Diarrhea, unspecified; R07.89 Other chest pain; Z88.0 Allergy status to penicillin; I10 Essential (primary) hypertension
CPT/HCPCS: 71046; 80048; 84484; 85025; 93005; 99284; J7030; A4216; J2405

== ENCOUNTER 2018-12-28 20:52 | Emergency (ER) | payer MEDICARE, SELFPAY ==
[2018-12-28 20:53] VITALS: BP 165/90; PULSE 64; RESP 16; TEMP 36.5; O2SAT 98; BMI 39.8
--- NOTE | 2018-12-28 21:09 | RAD_ITS ---
STUDY: X-RAY - RIGHT SHOULDER REASON FOR EXAM: Female, 73 years old. Pain TECHNIQUE: 2 view(s) of the shoulder. COMPARISON: None. FINDINGS: Normal glenohumeral articulation. Degenerative hypertrophy at the acromioclavicular joint. Normal acromion. Prior injury of the humeral head with cement. The soft tissue structures are unremarkable. Normal visualized pulmonary apex. RAD/Shoulder min 2 Views IMPRESSION: Degenerative and postsurgical changes as noted of the shoulder. Electronically Signed: Marko Lerner DO at 22:12 EDT Tel [phone], Service support ,
--- NOTE | 2018-12-28 21:09 | RAD_ITS ---
STUDY: X-RAY - LEFT KNEE REASON FOR EXAM: Female, 73 years old. Pain TECHNIQUE: 4 view(s) of the knee. COMPARISON: None. FINDINGS: Normal visualized distal femur. Normal visualized proximal tibia and fibula. Normal proximal tibiofibular articulation. Normal medial femorotibial compartment. Normal lateral femorotibial compartment. Narrowing at the patellofemoral articulation. Mild patellar degenerative spurring. The soft tissue structures are unremarkable. RAD/Knee 4 or More Views IMPRESSION: No acute bony injury examination of the knee. Electronically Signed: Marko Lerner DO at 22:10 EDT Tel [phone], Service support ,
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
[2018-12-28] MEDS: HYDROcodone Bitartrate/Apap 5/325 Tablet PO (22:01)
[2018-12-28 22:12] VITALS: BP 158/89; PULSE 74; RESP 16; O2SAT 97
== END 2018-12-28 22:12 | disposition home or self-care (01) ==
PROVIDERS: Emergency Provider Emergency Medicine; Family Provider Internal Medicine; PCP Internal Medicine
DX: S40.011A Contusion of right shoulder, initial encounter (principal); S80.02XA Contusion of left knee, initial encounter; G44.209 Tension-type headache, unspecified, not intractable; V53.5XXA Driver of pick-up truck or van injured in collision with car, pick-up truck or van in traffic accident, initial encounter; Y93.9 Activity, unspecified; Y99.8 Other external cause status; Y92.410 Unspecified street and highway as the place of occurrence of the external cause; E11.9 Type 2 diabetes mellitus without complications; I10 Essential (primary) hypertension; J45.909 Unspecified asthma, uncomplicated; Z82.3 Family history of stroke; Z87.442 Personal history of urinary calculi; Z88.0 Allergy status to penicillin
CPT/HCPCS: 73030; 73564; 99282

== ENCOUNTER → 2019-09-18 09:09 | Outpatient (CLI) | payer MEDICARE, SELFPAY ==
[2019-09-18 08:34] VITALS: BMI 39.8
[2019-09-18 12:20] LABS: Absolute Lymphocyte Count 1.81 X10^3/uL (0.83-4.51); Absolute Neutrophil Count 3.8 X10^3/uL (2.0-7.7); Basophil# 0.03 X10^3/uL; Basophil% 0.5 % (0-1); Eosinophil# 0.32 X10^3/uL; Eosinophils% 4.9 % (0-5); Hematocrit 46.4 % (37-47); Hemoglobin 14.7 g/dL (12.0-15.0); Lymphocyte # 1.81 X10^3/ul (4.0); Lymphocyte % 27.6 % (19-41); Mean Corp Hgb Conc 31.7 g/dL (32-36); Mean Corpuscular Hgb 26.6 pg (27.0-32.0); Mean Corpuscular Volume 84.1 fL (81-99); Mean Platelet Vol. 12.2 fl (6.2-12.0); Monocyte# 0.59 X10^3/uL; NRBC Flagged by Analyzer 0 % (0-5); Neutrophil # 3.79 X10^3/uL (2.7-7.7); Neutrophil % 57.7 % (47-70); Platelet Count 153 K/mm3 (150-450); RBC Distribution Width CV 14.1 % (11.6-14.6); RBC Distribution Width SD 43.1 fl (35.1-43.9); Red Blood Count 5.52 M/mm3 (4.2-5.4); White Blood Count 6.6 K/mm3 (4.4-11.0)
[2019-09-18 12:38] LABS: AST(SGOT) 21 U/L (15-37); Alanine Aminotransfer ALT/SGPT 26 U/L (13-56); Albumin, Serum 3.5 g/dL (3.2-5.0); Alkaline Phosphatase 93 U/L (45-117); Anion Gap 9 (5-15); BUN 17 mg/dL (7-18); BUN/Creat Ratio 15.5 RATIO (10-20); Calcium,Total 8.5 mg/dL (8.5-10.1); Chloride 106 mmol/L (98-107); Cholesterol 187 mg/dL (200); EST Glomerular Filtration Rate 52 mL/min (>60); Est Glom Filt Rate - Afr Amer 63 mL/min (>60); Globulin 3.6 g/dL (2.2-4.2); Glucose 120 mg/dL (74-106); High Density Lipoprotein 49 mg/dL; Potassium 3.9 mmol/L (3.5-5.1); Protein, Total 7.1 g/dL (6.4-8.2); Sodium Level 141 mmol/L (136-145); Triglycerides 121 mg/dL; Very Low Density Lipoprotein 24 mg/dL (5-40)
[2019-09-18 12:55] LABS: Microalbumin:Creatinine Ratio 65.5 mg/g CRE (<30 mg/g CRE)
== END ==
LOC: BIMLAB 09:10
PROVIDERS: PCP Internal Medicine; Referring Provider Internal Medicine; Visit Provider Internal Medicine
DX: R73.03 Prediabetes (principal); I10 Essential (primary) hypertension
CPT/HCPCS: 36415; 80053; 80061; 82043; 82570; 83036; 85025

== ENCOUNTER → 2019-10-04 12:39 | Outpatient (CLI) | payer MEDICARE, SELFPAY ==
[2019-09-18 08:34] VITALS: BMI 39.8
--- NOTE | 2019-10-04 12:40 | BI_ITS ---
MAMMOGRAPHY - BILATERAL SCREENING REASON FOR EXAM: Female, 73 years old. Routine annual screening examination. PERTINENT HISTORY: Aunt with breast cancer. TECHNIQUE: Digital bilateral breast phani (3D mammographic acquisition) in the CC and MLO projections. 2-D mediolateral oblique (MLO) and craniocaudad (CC) views of both breasts were obtained. CAD: Full Field Digital Mammography with Computer Added Detection was performed. COMPARISON: Comparison is made with prior examination dated December 22, 2017 and September 21, 2011. FINDINGS: Breast Composition: There are scattered areas of fibroglandular density. Since prior study, there has been an increase in the nodular densities seen in both breasts. The largest nodule is seen in the anterior upper lateral portion of the right breast measuring 1.5 cm x 1.3 cm. Correlation with ultrasound is recommended. Stable benign-appearing bilateral No other significant abnormalities are identified. BI/SCREEN MAMM (CAD) W/PHANI BILAT IMPRESSION: Since prior study, there has been an increase in the size of the previously seen bilateral nodules. Correlation with ultrasound is recommended. ASSESSMENT CATEGORY: BIRADS Category 0: Incomplete. Need additional imaging evaluation. A letter regarding these results will be sent to the patient by the facility within 30 days. Approximately 10% of breast cancers are not detected by mammography. A normal mammogram should not delay biopsy of a clinically suspicious abnormality. [id number] Electronically Signed: Augustin Ruiz, at 13:46 EDT , Service support ,
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
== END ==
PROVIDERS: PCP Internal Medicine; Referring Provider Internal Medicine; Visit Provider Internal Medicine
DX: Z12.31 Encounter for screening mammogram for malignant neoplasm of breast (principal); Z78.0 Asymptomatic menopausal state
CPT/HCPCS: 77063; 77067; 77080

== ENCOUNTER → 2019-10-08 09:09 | Outpatient (CLI) | payer MEDICARE, SELFPAY ==
[2019-09-18 08:34] VITALS: BMI 39.8
--- NOTE | 2019-10-08 09:10 | US_ITS ---
STUDY: ULTRASOUND BREAST - RIGHT REASON FOR EXAM: Female, 73 years old. Abnormal mammogram TECHNIQUE: Axial and longitudinal images of the RIGHT breast were performed with a high resolution ultrasound transducer. # OF IMAGES: 121 COMPARISON: Ultrasound from 12/29/2017 FINDINGS: RIGHT Breast: Stable anechoic cysts noted in the right breast, largest measures 0.9 x 1.3 x 0.8 cm at 10:00, 3 cm from the nipple. No suspicious hypoechoic shadowing nodule or architectural distortion. IMPRESSION: Stable simple cysts, no suspicious sonographic findings ASSESSMENT CATEGORY: BIRADS Category 2: Benign. A letter regarding these results will be sent to the patient by the facility within 30 days. Electronically Signed: Mendoza Morales MD at 11:07 EDT , Service support , STUDY: ULTRASOUND BREAST - LEFT REASON FOR EXAM: Female, 73 years old. Abnormal mammogram TECHNIQUE: Axial and longitudinal images of the LEFT breast were performed with a high resolution ultrasound transducer. # OF IMAGES: 121 COMPARISON: 07/05/2018 FINDINGS: LEFT Breast: Stable hypoechoic nodules in the left breast. Larger at 9:00 6 cm from the nipple measures 0.7 x 1.1 x 0.7 cm. There is a smaller nodule at 1:00 1 cm from the nipple measuring 0.4 x 0.6 x 0.4 cm which has already been biopsied. No new suspicious shadowing nodule architectural distortion or clustered calcifications. US/Breast Complete Bilateral IMPRESSION: No new suspicious findings, stable ultrasound ASSESSMENT CATEGORY: BIRADS Category 2: Benign. A letter regarding these results will be sent to the patient by the facility within 30 days. Electronically Signed: Mendoza Morales MD at 11:09 EDT , Service support ,
== END ==
LOC: OPUS 09:10
PROVIDERS: PCP Internal Medicine; Referring Provider Internal Medicine; Visit Provider Internal Medicine
DX: N60.01 Solitary cyst of right breast (principal)
CPT/HCPCS: 76641

== ENCOUNTER → 2020-01-22 09:12 | Outpatient (CLI) | payer MEDICARE, SELFPAY ==
[2020-01-22 08:20] VITALS: BMI 39.8
[2020-01-22 12:52] LABS: Microalbumin:Creatinine Ratio 16.3 mg/g CRE (<30 mg/g CRE)
== END ==
PROVIDERS: PCP Internal Medicine; Referring Provider Internal Medicine; Visit Provider Internal Medicine
DX: I10 Essential (primary) hypertension (principal); R73.03 Prediabetes
CPT/HCPCS: 82043; 82570; 83036

== ENCOUNTER 2020-10-23 13:43 | Emergency (ER) | payer MEDICARE, SELFPAY ==
[2020-10-23 13:44] VITALS: BP 211/95; PULSE 64; RESP 16; TEMP 36.5; O2SAT 96; BMI 37.8
--- NOTE | 2020-10-23 14:05 | VDLE_ITS ---
Reason For Study: Pain Procedure LEFT This is a venous duplex using B-mode, color GSV is normal. flow and spectral Doppler. CFV, FV, PopV and T/P Trunk are partially Exam performed portable in ED. noncompressible with bright intraluminal A preliminary report was called and/or faxed [facility]coes consistent with Chronic DVT. to Sj. Normal venous flow noted in the CFV, FV and PopV. PTV is compressible. LT PerV is compressible. VL/Venous Duplex US, Unilateral Interpretation Summary Technically difficult examination Left common femoral, femoral, popliteal, tibioperoneal trunk are partially comp ressible. Throughout bright intraluminal echoes are identified suggesting chronic deep venous thromb osis. Color venous flow was noted in the left common femoral femoral and popliteal vein. Patent and compressible left great saphenous vein Any previous studies are not available for comparison Ordering Physician: Thao Gustafson Referring Physician: Michael Corcoran Performed By: Sadaf Ford RVT
--- NOTE | 2020-10-23 14:06 | EDS_ITS ---
HPI History of Present Illness Chief Complaint: Lower Extremity Injury Detail of Chief Complaint: To the left leg over the last 4 to 5 days Narrative Narrative: Patient gives history of a fall going up the steps about 3 weeks ago where she just did get her foot up quickly enough and fell forward but did not think she injured herself. For 5 days ago started having cramping in her left calf and discomfort at times up to the thigh. She has intermittent numbness and tingling in the leg. Patient has remote history 30 years ago of a DVT. She denies recent travel or surgery. She denies chest pain or shortness of breath. Patient has been ambulatory. Patient also has history of hypertension and states she is not taken her blood pressure medicine for the last week and she is not sure why. [facility] Medical History (Updated 10/23/20 @ 15:[address] Thao Gustafson, ) Arthritis Asthma Blood clot in vein Breast lump Chronic bronchitis Environmental allergies Fractures involving multiple body regions H/O emotional problems Kidney stones Pneumonia Vision problems Home Medications amlodipine 5 mg tablet 7.5 mg PO DAILY 90 Days #135 tab 11/12/19 [Rx Last Taken Unknown] paroxetine HCl 20 mg tablet 20 mg PO DAILY #90 tab 03/04/20 [Rx Last Taken Unknown] hydrocodone-acetaminophen 1 tab PO Q4H PRN PRN 2 Days #10 tablet 10/23/20 [Rx Last Taken Unknown] Allergy/AdvReac Type Severity Reaction Status Date / Time Penicillins Allergy Hives Verified 10/23/20 13:46 Family History Father Alcoholism Asthma Mother Anxiety Blood clot in vein Myocardial infarction Grandmother Blood clot in vein Myocardial infarction Brother Myocardial infarction Aunt Breast cancer Grandmother CVA (cerebral vascular accident) Daughter Suicide attempt Surgical History History of hysterectomy History of shoulder surgery History of tonsillectomy Social History Smoking Status: Never smoker alcohol intake: never substance use type: does not use what type of physical activity do you participate in: none ROS ROS ED Constitutional Constitutional ED: Reports systems reviewed and no addt'l complaints, except as documented; Denies body ache(s), change in weight or chills Eyes Eyes: Denies acute decrease in peripheral vision, change in vision, double vision or loss of vision ENT ENT ED: Reports none; Denies ear pain, lip swelling, loss taste/smell, neck pain, otalgia or sore throat Cardiovascular Cardiovascular: Reports none; Denies abdominal pain, chest pain with activity, leg edema, lightheadedness, palpitations, rapid heart rate or syncope Respiratory/Chest Respiratory/Chest: Reports none; Denies change in mental status, dry cough, dyspnea, hemoptysis, shortness of breath at rest or shortness of breath with exertion Gastrointestinal Gastrointestinal: Reports none; Denies abdominal pain, change in stool character, diarrhea, hematemesis, hematochezia, melena, rectal bleeding or vomiting Genitourinary Genitourinary ED: Reports none; Denies abdominal discomfort, anuria, dysuria, genital pain or polyuria Musculoskeletal Musculoskeletal: Reports none and other Details: Left leg pain ; Denies arthralgias, back pain, difficulty walking, extremity pain, muscle weakness or myalgias Integumentary Reports none; Denies abscess or rash Neurologic Neurologic: Reports none; Denies abnormal gait, confusion, focal weakness, frequent falls, headache(s), loss of vision, numbness, paresthesias, radicular pain, vertigo or weakness Psychiatric Psychiatric: Reports systems reviewed and no addt'l complaints, except as documented and none; Denies behavioral changes, confusion, difficulty concentrating, hallucinations, suicidal ideation, tactile hallucinations or visual hallucinations Endocrine Endocrinology: Denies none, cold intolerance, excessive sweating, fatigue or heat intolerance Hematologic/Lymphatic Hematologic/Lymphatic: Reports none; Denies anemia, easy bleeding or easy bruising Allergic/Immunologic Allergic/Immunologic ED: Denies as per HPI, none, lip swelling, mouth swelling, throat swelling, tongue swelling or hives EXAM Physical Exam Const Vital Signs: 10/23/20 13:44 Temperature 97.7 F L Temperature Source Temporal Pulse Rate 64 Respiratory Rate 16 Blood Pressure 211/95 H Blood Pressure Mean 133 Pulse Ox 96 Oxygen Delivery Method Room Air Positive well nourished and well developed General Appearance ED: well developed and NAD HEENT Reports TM's clear and moist mucous membranes normocephalic and atraumatic; Negative for trauma or tenderness Tympanic Membrane ED: Yes TM's clear Eyes PERRL and EOMs intact bilaterally General Eye ED: Negative for pale conjunctiva or scleral icterus Neck no lymphadenopathy, supple and no JVD General: Negative for tenderness Chest Wall inspection of chest normal and palpation of chest normal Chest: Negative for tenderness Resp normal respiratory effort and clear to auscultation bilaterally Effort and Inspection: Negative for respiratory distress or pain with movement Auscultation: Negative for rhonchi, wheezes or diminished lung sounds Cardio regular rate, regular rhythm, S1 normal heart sound, S2 normal heart sound and no murmurs Peripheral Pulses: pulses 2+ throughout GI normal to inspection, nondistended, normoactive bowel sounds, soft to palpation, non-tender, non-distended and no masses Back/Spine no CVA tenderness and no thoracic nor lumbar tenderness Extremity normal to inspection Extremity Narrative: Evaluation of the left leg reveals no ecchymosis or bruising or deformity. Patient has tenderness palpation of the proximal calf. No ropes or cords palpated. No significant edema noted. No erythema or cellulitis noted. Neurovascularly intact distally. General Extremety ED: Negative for edema General Extremity: Negative for edema Neuro oriented x3, CN's II-XII intact bilaterally, no sensory deficits noted and gait normal Sensorium / Orientation: awake, alert, oriented to person, oriented to place and oriented to time Motor Exam: strength 5/5 throughout and strength abnormal Psych mental status grossly normal Skin no rashes or lesions noted and no wounds MDM MDM MDM Narrative Medical decision making narrative: Venous Doppler of the left lower extremity obtained was negative for DVT. Patient's electrolytes were unremarkable other than this minimally depressed calcium of 8.4. At this point I do not think patient has any indication for x-rays as she has been ambulatory and has not had significant trauma. Patient not having back pain or pain into the buttock therefore I do not feel symptoms are radiculopathic. Suspect likely she has a muscle strain of the extremity. Lab Data Attestation: I reviewed the patient's lab results. Labs: Laboratory Results - last 24 hr 10/23/20 14:10 Sodium 141 Potassium 3.8 Chloride 106 Carbon Dioxide 28.0 Anion Gap 7 BUN 20 H Creatinine 1.18 H Estim Creat Clear Calc 35.12 Est GFR (MDRD) Af Amer 58 L Est GFR (MDRD) Non-Af 48 L BUN/Creatinine Ratio 16.9 Glucose 158 H Calcium 8.4 L Discharge Plan Triage Chief Complaint: Lower Extremity Injury ED Provider: Thao Gustafson Dx/Rx/DC Orders Clinical Impression: Muscle strain of left lower leg Instructions: ED Muscle Strain, Extremity Prescriptions: New hydrocodone-acetaminophen [hydrocodone-acetaminophen] 1 TABLET tablet 1 tab PO Q4H PRN PRN (Reason: Pain) 2 Days Qty: 10 RF: 0 No Action amlodipine 5 mg tablet 7.5 mg PO DAILY 90 Days Qty: 135 RF: 2 paroxetine HCl [Paxil] 20 mg tablet 20 mg PO DAILY Qty: 90 RF: 3 Primary Care Provider: Michael Corcoran Referrals: Michael Corcoran MD [Primary Care Provider] - 3-5 Days Disposition Disposition: Home, Self Care
[2020-10-23 14:39] LABS: Anion Gap 7 (5-15); BUN 20 mg/dL (7-18); BUN/Creat Ratio 16.9 RATIO (10-20); Calcium,Total 8.4 mg/dL (8.5-10.1); Chloride 106 mmol/L (98-107); Creatinine, Serum 1.18 mg/dL (0.55-1.02); EST Glomerular Filtration Rate 48 mL/min (>60); Est Glom Filt Rate - Afr Amer 58 mL/min (>60); Estimated Creatinine Clearance 35.12 ml/min; Glucose 158 mg/dL (74-106); Potassium 3.8 mmol/L (3.5-5.1); Sodium Level 141 mmol/L (136-145)
[2020-10-23 15:24] VITALS: BP 214/91; PULSE 64; RESP 16; O2SAT 100
--- NOTE | 2020-10-23 15:24 | ED.RN ---
PT GIVEN WRITTEN AND VERBAL DISCHARGE INSTRUCTIONS. PT REPORTS THAT SHE HAS NOT TAKEN HER BP MEDICATIONS. DR. CHAMPAGNE INFORMED OF BP 214/92. REPORTS PT IS TO TAKE HER HOME BP MEDICATIONS AND FOLLOW UP BP CHECK WITH PCP. PT VERBALIZES UNDERSTANDING AND DENIES ANY FURTHER QUESTIONS. AMBULATES OUT OF DEPT ALONE.
== END 2020-10-23 15:28 | disposition home or self-care (01) ==
PROVIDERS: Emergency Provider Emergency Medicine; PCP Internal Medicine
DX: S86.912A Strain of unspecified muscle(s) and tendon(s) at lower leg level, left leg, initial encounter (principal); I10 Essential (primary) hypertension; Z86.718 Personal history of other venous thrombosis and embolism; Z79.899 Other long term (current) drug therapy; W10.9XXA Fall (on) (from) unspecified stairs and steps, initial encounter
CPT/HCPCS: 36415; 80048; 93971; 99282

== ENCOUNTER → 2021-09-29 | Outpatient (CLI) | payer MEDICARE, SELFPAY ==
[2021-09-29 12:34] LABS: Absolute Lymphocyte Count 1.74 X10^3/uL (0.83-4.51); Absolute Neutrophil Count 3.8 X10^3/uL (2.0-7.7); Basophil# 0.03 X10^3/uL; Basophil% 0.5 % (0-1); Eosinophils% 4.7 % (0-5); Hemoglobin 14.6 g/dL (12.0-15.0); Lymphocyte # 1.74 X10^3/ul (0.83-4.51); Lymphocyte % 27.1 % (19-41); Mean Corp Hgb Conc 32.4 g/dL (32-36); Mean Corpuscular Hgb 27.1 pg (27.0-32.0); Mean Corpuscular Volume 83.6 fL (81-99); Monocyte# 0.51 X10^3/uL; Monocyte% 7.9 % (0-10); NRBC Flagged by Analyzer 0 % (0-5); Neutrophil # 3.82 X10^3/uL (2.7-7.7); Neutrophil % 59.3 % (47-70); Platelet Count 202 K/mm3 (150-450); RBC Distribution Width SD 42.6 fl (35.1-43.9); Red Blood Count 5.38 M/mm3 (4.2-5.4); White Blood Count 6.4 K/mm3 (4.4-11.0)
[2021-09-29 13:02] LABS: ALB/GLOB Ratio 1.2 RATIO (0.9-2.4); AST(SGOT) 18 U/L (15-37); Alanine Aminotransfer ALT/SGPT 26 U/L (13-56); Albumin, Serum 3.8 g/dL (3.2-5.0); Alkaline Phosphatase 85 U/L (45-117); Anion Gap 5 (5-15); BUN 27 mg/dL (7-18); BUN/Creat Ratio 23.3 RATIO (10-20); Calcium,Total 8.7 mg/dL (8.5-10.1); Chloride 109 mmol/L (98-107); Cholesterol 197 mg/dL (200); Creatinine, Serum 1.16 mg/dL (0.55-1.02); EST Glomerular Filtration Rate 48 mL/min (>60); Est Glom Filt Rate - Afr Amer 59 mL/min (>60); Globulin 3.3 g/dL (2.2-4.2); Glucose 111 mg/dL (74-106); High Density Lipoprotein 53 mg/dL; Potassium 3.8 mmol/L (3.5-5.1); Protein, Total 7.1 g/dL (6.4-8.2); Sodium Level 140 mmol/L (136-145); Triglycerides 127 mg/dL; Very Low Density Lipoprotein 25 mg/dL (5-40)
[2021-09-29 14:51] LABS: Hemoglobin A1c 5.9 % (3.8-5.6)
== END | disposition home or self-care (01) ==
LOC: BIMLAB 09:19
PROVIDERS: PCP Internal Medicine; Referring Provider Internal Medicine; Visit Provider Internal Medicine
DX: I10 Essential (primary) hypertension (principal); R73.03 Prediabetes
CPT/HCPCS: 36415; 80053; 80061; 83036; 85025

== ENCOUNTER → 2021-10-05 | Outpatient (CLI) | payer MEDICARE, SELFPAY ==
--- NOTE | 2021-10-05 14:30 | US_ITS ---
STUDY: ULTRASOUND BREAST - LEFT REASON FOR EXAM: Female, 75 years old. Abnormal screening mammogram. TECHNIQUE: Axial and longitudinal images of the LEFT breast were performed with a high resolution ultrasound transducer. # OF IMAGES: 48 COMPARISON: Diagnostic mammogram earlier today FINDINGS: LEFT Breast: Heterogeneous plaque in echotexture. At 11 o''clock, 3 cm from nipple, ultrasound confirms a 2.2 cm irregular not parallel microlobulated hypoechoic mass with no posterior features corresponding to the mass seen on mammography worrisome for invasive ductal carcinoma. At 11 o''clock, 2 7 m nipple, ultrasound confirms a 1.0 cm irregular not parallel microlobulated hypoechoic mass with no posterior features which may represent multifocal invasive ductal carcinoma.: US/Breast Limited Unilateral IMPRESSION: Ultrasound confirms 2 hypoechoic masses within the left breast worrisome for multifocal invasive ductal carcinoma. Correlation with breast MRI is recommended. Ultrasound-guided vacuum-assisted core biopsy the larger mass is recommended. ASSESSMENT CATEGORY: BIRADS Category 4: Suspicious - Biopsy Should Be Considered. A letter regarding these results will be sent to the patient by the facility within 30 days. Electronically Signed: Eloy Lau MD at 16:18 EDT ,
--- NOTE | 2021-10-05 14:30 | BI_ITS ---
MAMMOGRAPHY - BILATERAL DIAGNOSTIC REASON FOR EXAM: Female, 75 years old. Left Breast Pain PERTINENT HISTORY: Non-contributory. TECHNIQUE: Digital examination. Mediolateral oblique (MLO) and craniocaudad (CC) views of both breasts were obtained. CAD: CAD was performed on this study. COMPARISON: 10/04/2019 FINDINGS: Breast Composition: The breasts are heterogeneously dense, which may obscure small masses. No dominant mass right breast. 3 cm oval secured equal density mass in the posterior retroareolar left breast with associated skin thickening and possible nipple retraction. No suspicious calcifications. No other significant abnormalities are identified. BI/DIAG MAMM W/CAD, BILAT IMPRESSION: Further ultrasonographic evaluation recommended, as described above. ASSESSMENT CATEGORY: BIRADS Category 0: Incomplete. Need additional imaging evaluation. A letter regarding these results will be sent to the patient by the facility within 30 days. FOLLOW UP RECOMMENDATION: Ultrasound Recommended. (I) Approximately 10% of breast cancers are not detected by mammography. A normal mammogram should not delay biopsy of a clinically suspicious abnormality. Electronically Signed: Eloy Lau MD at 15:24 EDT ,
== END | disposition home or self-care (01) ==
LOC: OPBI 14:28
PROVIDERS: PCP Internal Medicine; Visit Provider Internal Medicine
DX: N64.4 Mastodynia (principal)
CPT/HCPCS: 76642; 77062; 77066; G0279

== ENCOUNTER → 2021-10-27 | Outpatient (CLI) | payer MEDICARE, SELFPAY ==
--- NOTE | 2021-10-27 | IMM_PTH ---
PATIENT: PAUL BARONE LOC: [facility] U#:[id number] AGE/SX: 75/F ROOM: RE10/27/[address]: Dr. Melyssa Saab MD : 1945 BED: DIS: 10/27/2021 SPEC #: [id number] RECD: 10/28/21 12:03 STATUS: ARSENIO REQ #: [id number] LIONEL: 10/27/21 00:[address]: Melyssa Saab DEPT: IMMUNOHISTOCHEMISTRY RECD BY: Ingrid Bui ENTERED: 10/28/21 12:06 SP TYPE: IMMUNO OTHR DR: Dr. Michael Corcoran MD Tissues: A - Left breast, NOS B - Axillary lymph node, NOS Procedures: CK8 (initial) CALPONIN-1 (add) CK5-6 (add) ADAMS-2 (add) E-CAD (add) ER (add) HER2 ROSALINDA (add) KI-67 (add) MAMM (add) P53 (add) NE (add) C-MYC (add) Pankeratin (add) GATA3 (add) P40 (add) PHYSICIAN & INSTITUTION [place] [id number] SPECIMEN INFORMATION: Tissue Source: A ? Left breast 11 o?clock, 3 cm from nipple, B ? Left axilla lymph node Clinical Info: Left breast mass, left axillary mass Specimen Number: [id number] A & B CPT code: 13322 x2, 10173 x12, 64800 x3 METHODOLOGY: Deparaffinized sections of prefer/formalin-fixed tissue or PAP/DQ stained slides are incubated with monoclonal/polyclonal antibodies/oligonucleotide probes. Localization is made via biotin free immunoperoxidase method. Appropriate controls are performed and reacted as expected. Results on target cell population are indicated in the following table: RESULTS: ANTIBODY / CLONE RESULT Block A P53 (DO-7) positive, 30% Ki-67 (30-9) positive, 80% CK8 (28vhntV86) positive CK5-6 (D5 & 1684) negative Calponin-1 (KU181H) negative P40 (BC28) negative E-Cad (ECH-6) positive ADAMS-2 (SP21) positive C-MYC (Y69) positive, 35% MORPHOMETRIC ANALYSIS ER (clone 6F11) 75%, moderate to weak intensity NE (clone 16/1E2) 5-10%, moderate Her-2Neu (clone CB11) 3+ Block B GATA3 (L50-823) positive Mammaglobin (31A5) positive CK8 (10mxnyA47) positive P53 (DO-7) positive AE1-3 (AE1/AE3/PCK26) positive The prognostic test for HER2 is performed on formalin-fixed paraffin embedded tissue. A 3+ (positive) staining pattern is defined as intense, homogeneous, complete, circumferential membranous staining in >10% of contiguous tumor cells. A similar weak (2+) staining pattern is interpreted as equivocal. SAMI follow-up testing is recommended for all equivocal cases. Positivity/negativity for ER/NE is reported if > or < 1% of the tumor cells are immuno- reactive, respectively. The ASCO/CAP criteria is used for scoring. Reference: Journal of Clinical Oncology, 2013; 31:0510-9332 & 2010; 16:0999-4820. Duration of fixation: 10.5 Hrs; Sample Adequate: Yes. These assays have not been validated on decalcified tissues. Results should be interpreted with caution given the likelihood of false negativity on decalcified specimens. These tests were developed and their performance characteristics determined by [facility]. They may not have been cleared or approved by the U.S. Food and Drug Administration. The FDA has determined that such clearance or approval is not necessary. The above immunohistochemical/dualISH markers are ordered and reviewed by the Pathologist. INTERPRETATION: A. Left breast 11 o?clock, 3 cm from nipple, biopsy: Invasive ductal carcinoma, nuclear grade 2. Positive for estrogen receptors (favorable prognostic indicator). Positive for progesterone receptors (favorable prognostic indicator). Positive for overexpression of NMQ9bep. B. Left axilla lymph node, biopsy: Metastatic carcinoma consistent with breast primary. AM:rajeev 10/30/2021
--- NOTE | 2021-10-27 09:00 | BRBX_PTH ---
PATIENT: PAUL BARONE LOC: [facility] U#:[id number] AGE/SX: 75/F ROOM: RE10/27/[address]: Dr. Melyssa Saab MD : 1945 BED: DIS: 10/27/2021 SPEC #: [id number] RECD: 10/27/21 10:51 STATUS: ARSENIO REQ #: [id number] LIONEL: 10/27/21 09:[address]: Melyssa Saab DEPT: SURGICAL PATHOLOGY RECD BY: Clarisse Moscoso ENTERED: 10/27/21 11:36 SP TYPE: BREAST BX OTHR DR: Dr. Michael Corcoran MD Tissues: A - Left breast, NOS B - Axilla, NOS Procedures: Surgery Specimen Level IV HEADER OPERATION: Left breast biopsy and left axillary biopsy PRE-OP DIAGNOSIS: Left breast mass, left axillary mass TISSUE SUBMITTED: A ? Left breast 11 o?clock, 3 cm from nipple, B ? Left axilla lymph node MICROSCOPIC DIAGNOSIS A. Left breast at 11 o?clock, core biopsy: Invasive ductal carcinoma with the following characteristics: Maximal length ? 12.5 millimeters Nuclear grade ? 2/3 See comment. B. Left axillary lymph node, core biopsy: Metastatic carcinoma consistent with breast primary. See comment. AM:rajeev 10/28/2021 COMMENT A. Immunohistochemistry ([id number]) supports the above diagnosis. B. The morphologic features of the carcinoma are similar to the left breast core biopsy (specimen A). Clinical correlation is suggested. Immunohistochemistry ([id number]) supports the above diagnosis. Case has been reviewed in consultation with Dr. Espinal who concurs with the above diagnosis. IDC:SJ MICROSCOPIC DESCRIPTION Slides are reviewed. GROSS DESCRIPTION A - Received in fixative is one container labeled with the patient's name and designated left breast. The specimen consists of two elongated fragments of eric-yellow fibroadipose tissue each measuring 1.8 cm in length and 0.1 cm in diameter. The entire specimen is submitted in one cassette. B - Received in fixative is one container labeled with the patient's name and designated left axilla. The specimen consists of multiple elongated fragments of eirc-yellow adipose tissue each measuring 1.2 cm in length and 0.1 cm in diameter. The entire specimen is submitted in one cassette. / SJ:rg 10/27/2021 TC:0 CPT: 74420 x2
== END | disposition home or self-care (01) ==
LOC: LABSPEC 10:54
PROVIDERS: PCP Internal Medicine; Visit Provider Surgery
DX: C77.3 Secondary and unspecified malignant neoplasm of axilla and upper limb lymph nodes (principal); C50.919 Malignant neoplasm of unspecified site of unspecified female breast
CPT/HCPCS: 88305; 88341; 88342

== ENCOUNTER → 2021-11-06 | Outpatient (CLI) | payer MEDICARE, SELFPAY ==
--- NOTE | 2021-11-06 10:29 | ECHODONC_ITS ---
Reason For Study: Pre-chemo Procedure This was a 2D Doppler, Color Flow transthoracic echocardiogram. Myocardial strain analysis was performed in this exam to aid in the assessment of cardiac function. Exam performed in department. Left Ventricle Normal LV size. Left ventricular systolic function is normal. The estimated ejection fraction is 65 %. Stage 1 diastolic dysfunction. No regional wall motion abnormalities noted. Right Ventricle Normal RV size. Normal systolic function. Atria Normal left atrium. Normal right atrium. Mitral Valve Normal mitral valve. Tricuspid Valve Normal tricuspid valve. Aortic Valve Trisinus/trileaflet aortic valve. Mild focal aortic valve calcification. Pulmonic Valve Normal pulmonic valve. Great Vessels Normal aortic root. The pulmonary artery is normal size. Normal inferior vena cava. Pericardium/Pleural No pericardial effusion. MMode/2D Measurements & Calculations LVIDd: 4.4 cm IVSd: 1.2 cm Ao root diam: 3.6 cm LVIDs: 2.3 cm LVPWd: 1.1 cm RVDd: 3.0 cm FS: 47.9 % LAV(MOD-bp): 45.4 ml LVAd ap4: 23.0 cm2 LVAd ap2: 23.8 cm2 LAV(MOD-bp) Indexed: 23.6 ml/m2 LVLd ap4: 7.7 cm LVLd ap2: 7.9 cm LAV(MOD-sp2): 53.0 ml EDV(MOD-sp4): 57.8 ml EDV(MOD-sp2): 62.8 ml LAV(MOD-sp4): 36.9 ml EDV(sp4-el): 58.4 ml EDV(sp2-el): 61.0 ml LVAs ap4: 11.7 cm2 LVAs ap2: 12.0 cm2 LVLs ap4: 6.3 cm LVLs ap2: 6.6 cm ESV(MOD-sp4): 19.8 ml ESV(MOD-sp2): 19.3 ml ESV(sp4-el): 18.4 ml ESV(sp2-el): 18.5 ml EF(MOD-sp4): 65.8 % EF(MOD-sp2): 69.2 % EF(sp4-el): 68.5 % SV(MOD-sp4): 38.0 ml SV(MOD-sp2): 43.5 ml SV(sp4-el): 40.0 ml LA dimension(2D): 3.8 cm LA A4 area: 15.6 cm2 RA A4 area: 13.3 cm2 Time Measurements MV dec time: 0.29 sec Doppler Measurements & Calculations MV E max chance: 65.2 cm/sec Lat Peak E' Chance: 10.7 cm/sec Med Peak E' Chance: 7.7 cm/sec MV A max chance: 80.0 cm/sec E/E' lat: 6.1 E/E' med: 8.5 MV E/A: 0.81 MV dec slope: 223.3 cm/sec2 Ao V2 max: 148.3 cm/sec LV V1 max: 120.9 cm/sec Ao max P.8 mmHg LV V1 max P.8 mmHg Ao V2 mean: 104.7 cm/sec LV V1 mean P.3 mmHg Ao mean P.0 mmHg LV V1 mean: 85.2 cm/sec Ao V2 VTI: 37.2 cm LV V1 VTI: 29.1 cm PA V2 max: 91.4 cm/sec ECHO/ONC Echo Complete Interpretation Summary Normal LV size. Left ventricular systolic function is normal. The estimated ejection fraction is 65 %. Stage 1 diastolic dysfunction. The global longitudinal strain is normal. The global longitudinal strain = -17 % (normal). Ordering Physician: Haresh Saenz Referring Physician: Michael Corcoran Performed By: Melony Sotomayor RDCS
--- NOTE | 2021-11-06 10:29 | CT_ITS ---
STUDY: CT CHEST T ABDOMEN WITH CONTRAST REASON FOR EXAM: Female, 75 years old. STAGING BREAST CANCER RADIATION DOSAGE (If Supplied By Facility): CTDIvol = ( 17.78 ) mGy, DLP = ( 1291.02 ) mGycm TECHNIQUE: Transaxial imaging was performed following intravenous administration of IV 100mL Isovue-300. Multiplanar coronal and sagittal images were reformatted. Individualized dose optimization techniques were used for this CT. COMPARISON: No relevant priors. FINDINGS: Mild heterogeneous enlargement of the thyroid gland more prominent on the right side suggestive of a goiter as change. There is a 1.9 cm x 2.1 cm nodule in the medial posterior aspect of the left breast with a tissue clip marker within it. There is enlargement of the 2 cm left axillary lymph node. A tissue clip marker is seen within it. CHEST The lungs are normal. There is no demonstrated pleural abnormality. Normal heart and pericardium. There are multiple small lymph nodes within the mediastinum, which are normal in size and morphology most compatible with reactive lymph hyperplasia. Normal hilar regions. Intraluminal filling defects are seen in branches of the right upper lobe pulmonary artery as well as the interlobar right pulmonary artery in right lower lobe pulmonary artery. Smaller defects are also seen in branches of the left lower lobe pulmonary artery. There is atherosclerotic calcification of the aortic arch with tortuosity and elongation of the aortic arch and descending thoracic aorta. There are multi-level degenerative changes of the thoracic spine. ABDOMEN There is hepatomegaly with diffuse hepatic enlargement. Mildly distended gallbladder. There is a 3.9 cm x 2 cm gallstone in the dependent portion. Normal spleen. Normal pancreas. Normal bilateral adrenal glands. Bilateral parapelvic cysts more prominent on the right side. Normal visualized stomach. Normal small intestine. Normal colon. The appendix is visualized and appears normal. There is diffuse atherosclerotic calcification of the abdominal aorta, without a demonstrated aneurysm. Normal inferior vena cava. Normal retroperitoneum. Normal abdominal wall. Normal osseous structures. CT/CT Chest AND Abd W/ Contrast IMPRESSION: Bilateral pulmonary emboli worse in the right hemithorax as described. Right breast mass and enlarged right axillary lymph node. Bilateral parapelvic cysts. Electronically Signed: Augustin Ruiz MD at 11:16 EDT ,
[2021-11-06 11:01] LABS: CREATININE FINGERSTICK 1.2 mg/dL (0.55-1.02)
== END | disposition home or self-care (01) ==
LOC: CT 10:27
PROVIDERS: PCP Internal Medicine; Referring Provider Internal Medicine Medical Oncology; Visit Provider Internal Medicine Medical Oncology
DX: Z01.812 Encounter for preprocedural laboratory examination (principal); C50.812 Malignant neoplasm of overlapping sites of left female breast; Z01.818 Encounter for other preprocedural examination
CPT/HCPCS: 71260; 74160; 93306; 93356; Q9967

== ENCOUNTER → 2021-11-10 | Outpatient (CLI) | payer MEDICARE, SELFPAY ==
--- NOTE | 2021-11-10 08:25 | NM_ITS ---
CLINICAL: Female, 75 years old. STAGING BREAST CANCER WHOLE BODY NUCLEAR BONE SCAN TECHNIQUE: Following the IV administration of 25.1 mCi of Tc MDP, whole body bone imaging was performed with a gamma camera following a three hour delay. COMPARISON STUDIES : NM - None. CR - Not available for review at this time. CT - Not available for review at this time. MR - Not available for review at this time. US - Not available for review at this time. FINDINGS: Increased uptake is seen at the level of the lateral compartment of the right knee joint suggestive of a degenerative change. Mild uptake at the level of both shoulders suggestive of degenerative changes. No evidence of metastasis. NM/Bone Scan Whole Body IMPRESSION: No evidence of bony metastasis. Electronically Signed: Augustin Ruiz MD at 12:37 EDT ,
== END | disposition home or self-care (01) ==
LOC: NM 08:21
PROVIDERS: PCP Internal Medicine; Referring Provider Internal Medicine Medical Oncology; Visit Provider Internal Medicine Medical Oncology
DX: C50.812 Malignant neoplasm of overlapping sites of left female breast (principal)
CPT/HCPCS: 78306; A9503

== ENCOUNTER 2021-11-11 12:46 | Outpatient (CLI) | payer MEDICARE, SELFPAY ==
--- NOTE | 2021-11-11 12:54 | VDLE_ITS ---
Reason For Study: Pulmonary Embolism RIGHT LEFT GSV is normal. GSV is normal. CFV is compressible, spontaneous, phasic, CFV, FV, PopV and T/P Trunk are partially competent and demonstrates normal noncompressible with bright intraluminal augmentation. ehcoes consistent with Chronic DVT. FV is compressible, spontaneous, phasic, Normal venous flow noted in the CFV, FV and competent and demonstrates normal PopV. augmentation. PTV is compressible. POP V is compressible, spontaneous, phasic, LT PerV is compressible. competent and demonstrates normal augmentation. T/P Trunk is compressible. PTV is compressible. RT PerV is compressible. Procedure This is a venous duplex using B-mode, color flow and spectral Doppler. Exam performed in department. A preliminary report was called and/or faxed to [facility]. VL/Venous Duplex US - Joe Extrem Interpretation Summary There is no evidence of right lower extremity deep vein thrombosis. Wall thicke estella/partial compressibility left common femoral, femoral, popliteal, tibioperoneal trunk co nsistent with chronic deep venous thrombosis. Patent and compressible bilateral great saphenous veins Findings seem similar regarding the left lower extremity to the previous examin ation of October 23, 2020 Ordering Physician: Haresh Saenz Referring Physician: Michael Corcoran Performed By: Sadaf Ford RVT
[2021-11-11 13:13] LABS: D-Dimer Quantitative (DVT/PE) 1.33 FEU/ug/m (0.27-0.49)
== END 2021-11-11 23:59 | disposition home or self-care (01) ==
LOC: CVS 12:47
PROVIDERS: PCP Internal Medicine; Referring Provider Internal Medicine Medical Oncology; Visit Provider Internal Medicine Medical Oncology
DX: Z01.818 Encounter for other preprocedural examination (principal); I26.99 Other pulmonary embolism without acute cor pulmonale; I82.542 Chronic embolism and thrombosis of left tibial vein
CPT/HCPCS: 36415; 85379; 93970

== ENCOUNTER 2021-11-20 05:57 | Day surgery (SDC) | payer MEDICARE, SELFPAY ==
[2021-11-20 06:31] VITALS: BP 126/55; PULSE 56; RESP 16; TEMP 36.9; O2SAT 96; BMI 35.4
[2021-11-20] MEDS: Lactated Ringers 1,000 ML 15 ML IV (06:45)
--- NOTE | 2021-11-20 07:03 | HP.PCM_ITS ---
History and Physical Date of Admission: 11/20/21 Date of Service:? 11/17/21 MR#: [id number] Acct: [id number] Name:PAUL SCOTT : 1945 Provider: Dr. Melyssa Saab MD Location: [facility] Status: Signed Intake Vital Signs ? 11/17/2208:52 Respiration 18 Pulse 61 Pulse Oximetry (%) 96 Oxygen Delivery Method room air Intake Visit Reasons:?PORT PLACEMENT AND DISCUSS SURGERY Chief Complaint: F/u for Left Breast cancer. 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: No Is patient in pain?: No Allergies Penicillins Allergy (Verified 11/18/21 08:07) Hives Medications amlodipine 5 mg tablet 7.5 mg PO DAILY 3 months #135 tabs 09/29/21 [Rx Confirmed 11/18/21] paroxetine HCl 20 mg tablet (Paxil) 20 mg PO DAILY #90 tabs 09/29/21 [Rx Confirmed 11/18/21] apixaban 5 mg (74 tabs) tablets in a dose pack (Eliquis DVT-PE Treat 30D Start) 5 mg PO ONCE 30 days #30 tabs 11/12/21 [Rx Confirmed 11/18/21] enoxaparin 100 mg/mL subcutaneous syringe (Lovenox) 100 mg subcut Q12H #5 mL 11/17/21 [Rx Confirmed 11/18/21] PFSH Medical History?(Updated 11/18/21 @ 08:16 by Asia Nielsen) Abnormal mammogram of left breast Anxiety Anxiety and depression Arthritis Asthma Blood clot in vein Breast lump Breast pain, left Chronic bronchitis DVT (deep venous thrombosis) Encounter for screening for COVID-19 Environmental allergies Fractures involving multiple body regions H/O emotional problems History of echocardiogram History of stress test Hypertension Kidney stones Left shoulder pain Non-smoker Pneumonia Pulmonary embolism URI (upper respiratory infection) Vision problems Wears dentures Wears glasses Surgical History?(Updated 11/18/21 @ 08:16 by Asia Nielsen) History of hysterectomy History of shoulder surgery History of tonsillectomy Hx of tubal ligation Family History? Father Alcoholism AsthmaMother Anxiety Blood clot in vein Myocardial infarctionGrandmother Blood clot in vein Myocardial infarctionBrother Myocardial infarctionAunt Breast cancerGrandmother CVA (cerebral vascular accident)Daughter Suicide attemptOther Colon cancer Social History? Smoking Status:? Never smoker alcohol intake:? never substance use type:? does not use caffeine:? Yes Type: carbonated beverages Number of servings: 2 what type of physical activity do you participate in:? none seatbelt use:? always do you feel safe at home:? Yes HPI HPI HPI: PAUL BARONE, is a 75 F who presents to the office today for discussion about port or possible surgery versus neoadjuvant for left breast cancer.? Patient had CT chest abdomen pelvis which did show multiple PEs bilaterally.? Patient is currently not on any anticoagulation as she just saw oncology on -and she was told there could be possibility of surgery upfront versus chemotherapy.? Patient has her PET scan on Tuesday. ROS General General: No weight change, appetite, fatigue, colon cancer, breast cancer or weakness HEENT HEENT: No difficulty swallowing, eye injury, eye surgery, swollen glands or hoarseness Endo Endocrine: No thyroid disease, diabetes mellitus, thyroid cancer, Hair loss, he at intolerance or cold intolerance Skin Skin: No rash or changing moles Breast Breast: Yes left breast lump, breast pain, abnormal mammogram and abnormal US; No right breast lump, nipple discharge or breast enlargement Musc Musculoskeletal: Yes arthritis; No back problems, rheumatoid arthritis, gout or joint pain Cardio Cardiovascular: Yes high blood pressure; No murmur, pacemaker, heart disease, atrial fibrillation, heart attack, heart stent, palpitations, shortness of breat with exertion or chest pain Psych Psychiatric: No depression, anxiety or hearing voices Resp Respiratory: No shortness of breath, No sleep apnea, No cough, No COPD, No a sthma, No emphysema and No wheezing Gastro Gastrointestinal: No abdominal pain, No nausea or vomiting, No diarrhea, No constipation, No blood in stool, No acid reflux, No hemorrhoids, No ulcers, No gallbladder problem and No black,tarry stools [place] Hematologic: No blood thinners, No blood disorders, No bleeding, No anemia and Yes blood clots Neuro Neurologic: No system reviewed and no additional complaints, except as documented, No as per HPI, No abnormal gait, No abnormal hearing, No abnormal movements, No abnormal speech, No behavioral changes, No burning sensations, No confusion, No convulsions, No disequilibrium, No dizziness, No localized weakness, No frequent falls, No headache(s), No lack of coordination, No loss of vision, No memory loss, No numbness, No other visual disturbances, No radicular pain, No restless legs, No sensory deficit, No syncope, No tingling, No tremor(s), No weakness and No other Exam Const General: cooperative, healthy appearing and no acute distress [facility] Head: normal to inspection Neck Neck: supple Chest Other: Left upper chest normal to palpation. Resp Effort & Inspection: normal respiratory effort Cardio Rate: regular rate GI Inspection: non-distended Palpation: soft and nontender Skin General: no rashes or lesions noted Neuro General: patient oriented x3 Extrem General: no clubbing, cyanosis or edema Psych Affect: normal affect COVID (Procedure Consent) Procedure Criteria Procedure Criteria: Yes Elective The surgeon/proceduralist and patient have discussed in detail the risk of exposure to and/or potential harm posed by the COVID-19 virus with having a surgery/procedure at this time versus the risk of? delaying the surgery/procedure. It is not possible to know either the risk of delaying the surgery or procedure or chance of getting an infection with perfect accuracy, but a joint decision was made between the patient and the surgeon/proceduralist ?to proceed at this time with the scheduled surgery/procedure as indicated on the consent form. Assessment and Plan Assessment and Plan (1) Breast cancer, left: ?Status:?Acute ?Comment: Invasive ductal carcinoma L breast, vague mass with axillary node-Locally advanced, ER [id number]%, OR Positive 5-10%, Her2 3+ by IHC. Skin of L breast is thickened. Discussed disease status, Pt wants mastectomy, discussed neoadjuvant therapy, risks, benefits and side effects, use of PET/CT for staging. (2) Pulmonary emboli: ?Status:?Acute ?Comment: Incidental findings on CT chest with increased D-dimers, negative DVT. Discussed CTA vs empirically starting Eliquis, she wants to start Eliquis. (3) LAD (lymphadenopathy), axillary: ?Status:?Acute ?Comment: left (4) Encounter for insertion of venous access port: ?Status:?Acute ? ? ? Medications: New enoxaparin (Lovenox) ?? 5 syringes ?? 1 syringe bid today, tomorrow, and 1 syringe am 100 mg? subcut Q12H 5 mL 0RF ? ? Plan Did did discuss patient CT chest abdomen pelvis results with the patient bilateral PEs were seen.? Oncology was going to call in some Eliquis however per patient did not get to the pharmacy.? Also discussed with Dr. Schrader who is covering for Dr. Saenz for couple weeks we will plan for port placement on Tuesday we will start patient on Lovenox until then and then Dr. [facility] as [facility] is only once a day.? Patient does have her PET scan tomorrow.? As there is that hypodensity in the liver that was not called on the original report-await PET scan. Discussed with patient that due to her bilateral PEs would not recommend surgery upfront even though she does plan to go through with a mastectomy.? Would want patient treated for the PEs prior to surgery. I have discussed above with the patient- Port-a-Cath placement. Patient has been counseled as to the risks/benefits of the procedure. I have explained the risks of the surgery, including but not limited to: infection, bleeding, injury to any blood vessels/nerves, injury to lungs (such as pneumothorax or hemothorax and need for chest tube), not having any access, nonfunctioning of port due to thrombosis, infection of port, etc.? the patient understands and agrees to proceed. I have answered all the patient's questions to the patient?s satisfaction and the patient has no further questions. Melyssa Saab M.D. Pager: [phone] [facility] [address] [place] [address], [facility], [address] [place] [address] Office: [phone] Coding Level of Care Code Off vis,est,level 5 Diagnoses Breast cancer, left? C50.912 Pulmonary emboli? I26.99 LAD (lymphadenopathy), axillary? R59.0 Encounter for insertion of venous access port? Z45.2 11/18/21 0848 <Electronically signed by Melyssa Saab MD> Date [facility]
[2021-11-20] MEDS: Clindamycin 900 MG/50 ML BAG 75 MG IV (07:15)
[2021-11-20] MEDS: Bupivacaine 0.25% 30 ML Vial (07:44)
[2021-11-20] MEDS: Lidocaine 1% /Epi 1:100 (20ml) 20 ML Vial (07:44)
--- NOTE | 2021-11-20 07:55 | OP.PCM_ITS ---
Report of Operation Date of Procedure: 11/20/21 Pre-Operative Diagnosis: z45.2, breast cancer Post-Operative Diagnosis: Same Surgery/Procedure Performed:: 1. Placement of right IJ Port-A-Cath 2. Use of ultrasound 3. Use of fluoroscopy Surgeon: Melyssa Saab Type of Anesthesia: Local MAC Anesthesiologist: Jesus Mccall Special Medications: Clindamycin 900 mg IV x1 Estimated Blood Loss (mL): < 10 cc Description of Procedure: After informed consent was given, the patient was brought to the operating room and placed in the supine position. Appropriate time out protocol was followed. Patient was then given IV conscious sedation for anesthesia. The patient's right upper chest and neck were then prepped with a surgical skin preparation and sterile surgical drapes were placed. After proper landmarks were ascertained, the skin at the upper right chest area was then infiltrated with 1:1 mixture of 1% lidocaine with epinephrine and 0.5% marcaine. A needle trocar was then inserted into the right internal jugular vein with ultrasound guidance-multiple vessels were viewed with u/s and the right IJ was chosen-- and there was good aspiration of venous blood. A wire was then threaded into the needle trocar and this was visualized under fluoroscopy to ensure that the wire was in the superior vena cava. Once this was done, then the needle trocar was removed. A small skin sandy was made with an 11 blade knife at the wire entrance site. The dilator with the introducer sheath attached was then placed over the wire into the right internal jugular vein via the Seldinger technique and this was visualized under fluoroscopy. The dilator and sheath were in proper position as visualized by fluoroscopy. A subcutaneous pocket was then created caudad to the catheter insertion site. A transverse skin incision was made after the skin and subcutaneous tissues were infiltrated with local anesthetic. Blunt dissection was then used to create a space large enough for placement of the subcutaneous port. The catheter was then tunneled into the subcutaneous pocket. The wire and dilator were then removed. The catheter was then threaded into the introducer sheath and was positioned with its tip at the junction of the superior vena cava and the right atrium as visualized under fluoroscopy. The e xcess catheter was transected. The catheter was then attached to the subcutaneous port using manufacturers guidelines. The catheter was flushed with a heparin saline mixture prior to placement. Hemostasis was carefully controlled with electrocautery. The port was sutured to the subcutaneous fascia using 2-0 Vicryl suture at two sites. The port was then placed in the subcutaneous pocket. The incision were reapproximated with interrupted subdermal 3-0 vicryl sutures. The skin was reapproximated with 3-0 nylon suture in a interrupted fashion. Steristrips were used for reinforcement of the skin closure at IJ insertion site and a sterile opsite dressings were applied. The patient tolerated the procedure well. Grafts/Implants Used: [employer] PowerPort isp M.R.I. 6Fr Lot [id number] ref [id number]
--- NOTE | 2021-11-20 07:57 | DCINST_ITS ---
Discharge Instructions Procedure Port-A-Cath Diet Discharge Diet: Light diet - advance as tolerated Activity May shower in (days): 5 (Keep port site clean and dry x5 days. Neck incision okay to get wet after 1 day. Okay to lower shower and upper sponge bath. OR okay to taper off port site with a Ziploc bag to shower) Lifting Restrictions: No lifting > 15 pounds for 3 days with the arm on the side of the port Dressing / Incision Call your doctor if your incision/area has: Continuous Slow Oozing, Sudden Increased Bleeding, Increased Pain/ Swelling, Increased Redness, Foul Smelling Discharge and Swelling at the incision site Call your doctor if you observe: Fever of 101 or Higher Change Dressing in: 2 days Follow Up Care Please Follow Up With: Melyssa Saab MD When: In 10 days for permanent suture removal?call office for appointment Test Results: Test results from this visit will be discussed in further detail at your follow- up appointment, if applicable. Discharge Plan Admission Attending Provider: Melyssa Saab Primary Care Provider: Michael Corcoran Discharge Orders/Prescriptions Prescriptions: New oxycodone-acetaminophen 5-325 mg tablet 1 tab PO Q6H PRN (Reason: pain) 2 Days Qty: 3 0RF Continued amlodipine 5 mg tablet 7.5 mg PO DAILY 90 Days Qty: 135 2RF paroxetine HCl [Paxil] 20 mg tablet 20 mg PO DAILY Qty: 90 3RF Eliquis DVT-PE Treat 30D Start 5 mg (74 tabs) tablets,dose pack 5 mg PO ONCE 30 Days Qty: 30 0RF Rx Instructions: start tonight Discontinued enoxaparin [Lovenox] 100 mg/mL syringe 100 mg subcut Q12H Qty: 5 0RF Rx Instructions: 5 syringes 1 syringe bid today, tomorrow, and 1 syringe am Referrals / Follow Up: Michael Corcoran MD [Primary Care Provider] - Disposition Disposition (needs filled in before D/C Order can be placed): Home, Self Care
[2021-11-20 08:00] VITALS: BP 105/56; BP 126/55; PULSE 76; RESP 18; TEMP 36.6; O2SAT 97
[2021-11-20 08:05] VITALS: BP 112/64; BP 126/55; PULSE 68; RESP 18; O2SAT 94
[2021-11-20 08:10] VITALS: BP 102/61; BP 126/55; PULSE 68; RESP 18; O2SAT 94
--- NOTE | 2021-11-20 08:10 | RAD_ITS ---
INDICATION: port -- pacu EXAMINATION/TECHNIQUE: X-RAY - XR Chest 1 View COMPARISON: 09/29/2018. FINDINGS: LINES/DEVICES: Right chest port visualized with catheter tip in the SVC. LUNGS: There are linear streaky opacities visualized in the right upper lung field, peribronchial cuffing and mild bronchovascular prominence visualized that demonstrate no significant change in comparison to the prior study. No evidence of focal lung infiltrate or consolidation. No evidence of pneumothorax or pleural effusion. Biapical prominence demonstrates no change. MEDIASTINUM AND CARDIOVASCULAR STRUCTURES: Cardiac silhouette not enlarged. BONES AND SOFT TISSUES: Increased density visualized in the right humeral head demonstrates no change in comparison to the prior study. Degenerative bone changes seen. RAD/CXR for Line Placement IMPRESSION: Linear subsegmental atelectatic streak is visualized in the right upper lung field. No evidence of acute cardiopulmonary disease is seen. Electronically Signed: Osmin Reynoso MD at 8:40 EDT ,
[2021-11-20 08:18] VITALS: BP 104/49; BP 126/55; PULSE 68; RESP 18; TEMP 36.3; O2SAT 98
[2021-11-20 09:30] VITALS: BP 126/55; BP 126/59; PULSE 60; RESP 16; TEMP 36.8; O2SAT 97
== END 2021-11-20 09:32 | disposition home or self-care (01) ==
LOC: SDC 05:58 → AC 05:59
PROVIDERS: PCP Internal Medicine; Visit Provider Surgery
PROC: (CPT 36561; principal; 2021-11-20 07:00)
DX: Z45.2 Encounter for adjustment and management of vascular access device (principal); C50.912 Malignant neoplasm of unspecified site of left female breast; R59.0 Localized enlarged lymph nodes; Z80.0 Family history of malignant neoplasm of digestive organs; I10 Essential (primary) hypertension; F32.A Depression, unspecified; F41.9 Anxiety disorder, unspecified; J45.909 Unspecified asthma, uncomplicated; Z91.09 Other allergy status, other than to drugs and biological substances
CPT/HCPCS: 36561; 00532; 71045; 77001; J7120; J2405

== ENCOUNTER → 2021-11-23 | Outpatient (CLI) | payer MEDICARE, SELFPAY ==
--- NOTE | 2021-11-23 11:02 | MRI_ITS ---
STUDY: BILATERAL BREAST MR WITHOUT AND WITH CONTRAST REASON FOR EXAM: Female, 75 years old. Abnormal mammogram TECHNIQUE: Multi-sequence multi-echo imaging of both breasts was performed with a dedicated breast coil. T1-weighted and T2-weighted images were performed before the administration of contrast. T1-weighted images were also performed after the intravenous administration of 18 cc of DOTAREM contrast. COMPARISON: Bilateral mammogram dated 10/05/2021 and unilateral left breast ultrasound dated 10/05/2021. FINDINGS: RIGHT BREAST: The breast tissue is scattered fibroglandular densities with mild background enhancement. There are no abnormal enhancing masses or areas of non-mass enhancement in the right breast. LEFT BREAST: The breast tissue is scattered fibroglandular densities with marked background enhancement. Marked skin thickening of the left breast. Diffuse enhancement of the visualized parenchymal tissue with multiple masses behind the large area of parenchymal enhancement. One of these masses is medial and measures approximately 2.5 cm x 2.4 cm. The other mass is slightly lateral and close to the chest wall and measures 2.5 cm x 1.7 cm. Apparently, there are tissue clip marker artifacts in both of these larger masses. Multiple small lymph nodes in both axillae. None of these have suspicious criteria. There is no abnormality in the visualized regions of the chest or liver. MRI/Breast Bilateral W/O and W IMPRESSION: Skin thickening with extensive diffuse parenchymal enhancement in the left breast. Findings compatible with inflammatory breast cancer. Two masses in the left breast behind the area of enhancement as described. CATEGORY: BIRADS Category 6: Known Biopsy-Proven Malignancy - Appropriate Action Should Be Taken. A letter regarding these results will be sent to the patient by the facility within 30 days. Electronically Signed: Palmer Hernadez, at 9:50 EDT ,
[2021-11-23] MEDS: 0.9% Saline Lock 10 ML Syringe IV (13:04)
== END | disposition home or self-care (01) ==
LOC: MRI 11:02
PROVIDERS: PCP Internal Medicine; Referring Provider Surgery; Visit Provider Surgery
DX: R92.8 Other abnormal and inconclusive findings on diagnostic imaging of breast (principal); N64.4 Mastodynia
CPT/HCPCS: 77049; A9575; A4216; C8908

== ENCOUNTER 2021-12-06 04:18 | Emergency (ER) | payer MEDICARE, SELFPAY ==
[2021-12-06 04:18] VITALS: BP 181/81; PULSE 96; RESP 20; TEMP 37.1; O2SAT 95; BMI 36.4
--- NOTE | 2021-12-06 04:39 | EKG12_ITS ---
Test Reason : SOB Blood Pressure : / mmHG Vent. Rate : 070 BPM Atrial Rate : 070 BPM P-R Int : 158 ms QRS Dur : 096 ms QT Int : 410 ms P-R-T Axes : 034 -43 025 degrees QTc Int : 442 ms Normal sinus rhythm Left axis deviation Moderate voltage criteria for LVH, may be normal variant ( R in aVL , Devers product ) Abnormal ECG Confirmed by LOS NICHOLAS, ERIBERTO ([id number]), fan mail editor KYREE LOTT ([id number]) on 12/08/2021 12:50:30 PM Referred By: THUY Confirmed By:ERIBERTO MADISON MD
--- NOTE | 2021-12-06 04:41 | EDS_ITS ---
HPI History of Present Illness Chief Complaint: Shortness of Breath Informant: patient Onset/Context/Timing Onset: Yesterday Context: gradual and onset Timing: Intermittent and Lasts (mins-hrs; varies) Quality: Positive for - (just feels short of breath) Current Severity: Mild Maximum Severity: Moderate Worsened by: Nothing Relieved by: Nothing Associated Symptoms cough Chest Pain: Positive for Tightness (substernal, nonradiating, nonpleuritic) Narrative Narrative: Patient recently diagnosed with left breast cancer, she just started chemotherapy with 4 different agents given 3-4 days ago, she is feeling a little weak and lightheaded but today she started having episodes of chest tightness and shortness of breath. She states that they have all been random, starting when she is resting and abating with nothing in particular. No exertional symptoms, no obvious trigger. No associated palpitations or near syncope or nausea/vomiting or focal neurologic symptoms/headache. She does have the discomfort right now it is relatively mild and she admits to having some dyspnea right now that is also mild. She was diagnosed with pulmonary emboli about 1 month ago and has been on Eliquis ever since. She denies any bleeding from anywhere. She has not missed any of the medication/anticoagulant. She denies any pleuritic unilateral chest discomfort. She has had a minor cough recently, she denies any fevers or chills or myalgias. Patient initially states she does not have a history of asthma or COPD, but she has asthma and her medical history. In asking her about this and her chest tightness, she states she is not sure if this is asthma or not, she has not had symptoms of it in a long time, she thinks it was mostly because of being around secondhand smoke when her used to smoke. [facility] Medical History Abnormal mammogram of left breast Anxiety Anxiety and depression Arthritis Asthma Blood clot in vein Breast lump Breast pain, left Chronic bronchitis DVT (deep venous thrombosis) Encounter for chemotherapy management Encounter for education Encounter for screening for COVID-19 Environmental allergies Fractures involving multiple body regions H/O emotional problems History of echocardiogram History of stress test Hypertension Kidney stones Left shoulder pain Left thyroid nodule Non-smoker Pneumonia Pulmonary embolism URI (upper respiratory infection) Vision problems Wears dentures Wears glasses Home Medications amlodipine 5 mg tablet 7.5 mg PO DAILY 3 months #135 tabs 09/29/21 [Rx Last Taken 11/20/21] paroxetine HCl 20 mg tablet (Paxil) 20 mg PO DAILY #90 tabs 09/29/21 [Rx Last Taken 11/19/21] lidocaine-prilocaine 2.5 %-2.5 % topical cream 1 applic topical ONCE PRN port access 30 days #30 grams 11/26/21 [Rx Last Taken Unknown] ondansetron 8 mg disintegrating tablet 8 mg PO Q8H PRN nausea and vomiting #30 tabs 11/26/21 [Rx Last Taken Unknown] prochlorperazine maleate 10 mg tablet 10 mg PO Q6H PRN nausea and vomiting #30 tabs 11/26/21 [Rx Last Taken Unknown] albuterol sulfate 90 mcg/actuation aerosol inhaler (Ventolin HFA) 1 - 2 puff inhalation Q4H PRN PRN Wheezing ##1 12/06/21 [Rx Last Taken Unknown] apixaban 5 mg (74 tabs) tablets in a dose pack ([employer] DVT-PE Treat 30D Start) 5 mg PO BID 12/06/21 [History Last Taken Unknown] Allergy/AdvReac Type Severity Reaction Status Date / Time Penicillins Allergy Hives Verified 12/02/21 09:47 Family History Father Alcoholism Asthma Mother Anxiety Blood clot in vein Myocardial infarction Grandmother Blood clot in vein Myocardial infarction Brother Myocardial infarction Aunt Breast cancer Grandmother CVA (cerebral vascular accident) Daughter Suicide attempt Other Colon cancer Surgical History History of hysterectomy History of shoulder surgery History of tonsillectomy Hx of tubal ligation Social History Smoking Status: Never smoker alcohol intake: never substance use type: does not use caffeine: Yes Type: carbonated beverages Number of servings: 2 what type of physical activity do you participate in: none seatbelt use: always do you feel safe at home: Yes ROS ROS ED Constitutional Constitutional ED: Reports malaise; Denies chills or fever(s) Eyes Eyes: Denies change in vision or diplopia ENT ENT ED: Denies rhinorrhea or sore throat Cardiovascular Cardiovascular: Reports chest pain and lightheadedness; Denies palpitations, racing heartbeat or radiating jaw, neck or arm pain Respiratory/Chest Respiratory/Chest: Reports cough and dyspnea; Denies sputum Gastrointestinal Gastrointestinal: Denies abdominal pain, diarrhea, nausea or vomiting Genitourinary Genitourinary ED: Denies dysuria or hematuria Musculoskeletal Musculoskeletal: Denies back pain or neck pain Integumentary Denies abscess or rash Neurologic Neurologic: Denies headache(s), paresthesias or weakness Psychiatric Psychiatric: Denies anxiety or suicidal thoughts EXAM Physical Exam Const Vital Signs: 12/06/21 04:18 12/06/21 04:25 12/06/21 05:58 Temperature 98.8 F Temperature Source Temporal Pulse Rate 96 64 Respiratory Rate 20 H 16 Respiratory Effort Normal Non-Labored Respiratory Depth Normal Respiratory Pattern Normal Normal Blood Pressure 181/81 H Blood Pressure Mean 114 Pulse Ox 95 Oxygen Delivery Method Room Air Room Air Positive well nourished, well developed and obese General Appearance ED: well developed and NAD Nutritional Appearance: obese HEENT Reports moist mucous membranes normocephalic and atraumatic Eyes PERRL and EOMs intact bilaterally Neck full ROM and supple Resp normal respiratory effort and clear to auscultation bilaterally Cardio regular rate, regular rhythm and no murmurs Rate: Negative for tachycardic GI non-tender and non-distended Auscultation: normoactive bowel sounds Palpation: soft Back/Spine no CVA tenderness General Back: other FROM Extremity normal to inspection General Extremety ED: Negative for edema, pulses abnormal or tenderness General Extremity: Negative for edema or pulses abnormal Neuro oriented x3, CN's II-XII intact bilaterally and no sensory deficits noted Neuro Narrative: Symmetric nonfocal neurologic exam, able to move all 4 extremities well, 4+/5 strength Sensorium / Orientation: awake and alert Motor Exam: general weakness Skin no rashes or lesions noted and no wounds MDM MDM MDM Narrative Medical decision making narrative: Work the patient up with labs, cardiac work-up, 2 view chest x-ray. She does have a leukocytosis of 17.8 but according to report I was able to review, it appears that in addition to neoadjuvant TCHP, she also received an injection of Neulasta which may be responsible for her leukocytosis. She has a slightly elevated BNP which is nonspecific and does not indicate acute CHF. The rest of her work-up is unremarkable aside from a little prerenal azotemia. 2 view chest x-ray to my interpretation negative. Her EKG and troponin are negative/unremarkable. After all of these test, she still had the symptoms. We tried an albuterol aerosol, and that completely relieved her symptoms. This is more consistent with reactive airway/asthma. Given that she just got started on chemotherapy/immunosuppressive medications, I think it would be sauer to try to avoid prednisone if we can help it, she does not have any albuterol at home I am prescribing her an MDI to use as needed, and if she continues to have symptoms over the next couple days and requires it often, she may discuss with her oncologist regarding prednisone if she feels she may need it. She and her daughter are comfortable with that plan. Lab Data Attestation: I reviewed the patient's lab results. Labs: Laboratory Results - last 24 hr 12/06/21 12/06/21 12/06/21 04:58 04:58 04:58 WBC 17.8 H RBC 4.76 Hgb 13.2 Hct 39.9 MCV 83.8 MCH 27.7 MCHC 33.1 RDW Std Deviation 43.5 RDW Coeff of Nevin 14.2 Plt Count 107 L MPV 11.7 Neut % (Auto) Not Reportable Sodium 139 Potassium 3.4 L Chloride 106 Carbon Dioxide 26.0 Anion Gap 7 BUN 21 H Creatinine 0.92 Estim Creat Clear Calc 43.71 Est GFR (MDRD) Af Amer 77 Est GFR (MDRD) Non-Af 64 BUN/Creatinine Ratio 22.9 H Glucose 125 H Calcium 7.7 L Troponin I High Sens 6 B-Natriuretic Peptide 109.9 H Radiography Chest X-Ray - ED: 2 View, Read by ED Physician, No Acute Disease and No Infiltrates Diagnostic Testing: Clinical Impression(s) from Imaging Studies Chest X-Ray 12/06/21 05:09 IMPRESSION: 1. Port-A-Cath in place. 2. No evidence for acute cardiopulmonary pathology. Electronically Signed: Baljit Luna MD at 5:33 EDT , Rhythm Strip Rhythm Strip: Sinus Rhythm Rate: 85 Ectopy: None EKG Initial EKG: Attestation: I personally reviewed and interpreted this EKG as follows: Interpretation: Sinus Rhythm, No Acute Injury Pattern and LAFB Prior EKG tracings: available for review Prior: Unchanged Discharge Plan Triage Chief Complaint: Shortness of Breath ED Provider: Sabino Whitman Dx/Rx/DC Orders Clinical Impression: Acute asthma exacerbation, Chest tightness Instructions: ED Asthma, Acute (Adult) Prescriptions: New albuterol sulfate [Ventolin HFA] 90 mcg/actuation HFA aerosol inhaler 1 - 2 puff inhalation Q4H PRN PRN (Reason: Wheezing) Qty: 1 0RF Rx Instructions: may substitute for different brand of albuterol if needed No Action amlodipine 5 mg tablet 7.5 mg PO DAILY 90 Days Qty: 135 2RF paroxetine HCl [Paxil] 20 mg tablet 20 mg PO DAILY Qty: 90 3RF lidocaine-prilocaine 2.5-2.5 % cream 1 applic topical ONCE PRN (Reason: port access) 30 Days Qty: 30 2RF prochlorperazine maleate 10 mg tablet 10 mg PO Q6H PRN (Reason: nausea and vomiting) Qty: 30 2RF ondansetron 8 mg tablet,disintegrating 8 mg PO Q8H PRN (Reason: nausea and vomiting) Qty: 30 2RF Eliquis DVT-PE Treat 30D Start 5 mg (74 tabs) tablets,dose pack 5 mg PO BID Primary Care Provider: Michael Corcoran Referrals: Michael Corcoran MD [Primary Care Provider] - 3-5 Days if not improving (or Dr. Saenz) Disposition Disposition: Home, Self Care
[2021-12-06 05:09] LABS: Hematocrit 39.9 % (37-47); Hemoglobin 13.2 g/dL (12.0-15.0); Mean Corp Hgb Conc 33.1 g/dL (32-36); Mean Corpuscular Hgb 27.7 pg (27.0-32.0); Mean Corpuscular Volume 83.8 fL (81-99); Mean Platelet Vol. 11.7 fl (6.2-12.0); POSITIVE COUNT YES; POSITIVE MORPHOLOGY YES; Platelet Count 107 K/mm3 (150-450); RBC Distribution Width CV 14.2 % (11.6-14.6); RBC Distribution Width SD 43.5 fl (35.1-43.9); Red Blood Count 4.76 M/mm3 (4.2-5.4); White Blood Count 17.8 K/mm3 (4.4-11.0)
--- NOTE | 2021-12-06 05:09 | RAD_ITS ---
EXAM: XR CHEST, 2 VIEWS CLINICAL INDICATION: chest pain/sob chest pain/sob TECHNIQUE: Frontal and lateral views of the chest. This report was created using [employer] report generation technology. COMPARISON: 11/20/2021. FINDINGS: LUNGS AND PLEURAL SPACES: Unremarkable. No consolidation or edema. No pneumothorax. No effusion. HEART: Unremarkable. Cardiac silhouette not enlarged. MEDIASTINUM: Central airways and mediastinal contour are unremarkable. BONES/JOINTS: There are surgical cement in the right humeral head. There are multilevel degenerative changes in the visualized spine. SOFT TISSUES: Unremarkable. TUBES, LINES AND DEVICES: There is a right internal jugular Port-A-Cath with its tip in the distal superior vena cava. RAD/Chest PA and Lateral IMPRESSION: 1. Port-A-Cath in place. 2. No evidence for acute cardiopulmonary pathology. Electronically Signed: Baljit Luna MD at 5:33 EDT Reading Location ID and State: [facility] / [place] , Service support ,
[2021-12-06 05:10] LABS: Differential Indicated MANUAL DIFF
[2021-12-06 05:32] LABS: BNP,B-Type NATRIURETIC PEPTIDE 109.9 pg/mL (0-100)
[2021-12-06 05:38] LABS: Anion Gap 7 (5-15); BUN 21 mg/dL (7-18); BUN/Creat Ratio 22.9 RATIO (10-20); Calcium,Total 7.7 mg/dL (8.5-10.1); Chloride 106 mmol/L (98-107); Creatinine, Serum 0.92 mg/dL (0.55-1.02); EST Glomerular Filtration Rate 64 mL/min (>60); Est Glom Filt Rate - Afr Amer 77 mL/min (>60); Estimated Creatinine Clearance 43.71 ml/min; Glucose 125 mg/dL (74-106); Potassium 3.4 mmol/L (3.5-5.1); Sodium Level 139 mmol/L (136-145); Troponin-I HS 6 pg/mL (3.0-54.0)
[2021-12-06] MEDS: Albuterol 2.5 MG/3 ML VIAL.NEB. INHALATION (05:57)
[2021-12-06 05:58] VITALS: PULSE 64; RESP 16
[2021-12-06 06:19] LABS: Platelet Estimate SLT DEC (ADEQ); Red Cell Morphology NORM C+C NORMAL (NORM C&C)
[2021-12-06 06:22] LABS: Absolute Lymphocyte Count 2.14 X10^3/uL (0.83-4.51); Absolute Neutrophil Count 13.9 X10^3/uL (2.0-7.7); Atypical Lymphocyte 1+ %; Eosinophil 1 % (0-5); Lymphocyte 12 % (19-41); Monocyte 4 % (0-10); Myelocyte 5 % (0-0); Neutrophil-Band 2 % (0-5); Neutrophil-Segmented 76 % (47-70); Total Cells Counted 100 (MANUAL DIFF)
[2021-12-06] MEDS: 0.9% Saline Lock 10 ML Syringe IV (06:30)
[2021-12-06 06:36] VITALS: BP 159/76; PULSE 69; RESP 18; O2SAT 96
[2021-12-08 09:07] LABS: Pathologist Review Reviewed
== END 2021-12-06 06:37 | disposition home or self-care (01) ==
PROVIDERS: Emergency Provider Emergency Medicine; PCP Internal Medicine; Visit Provider Emergency Medicine
DX: J45.901 Unspecified asthma with (acute) exacerbation (principal); C50.919 Malignant neoplasm of unspecified site of unspecified female breast; I10 Essential (primary) hypertension; Z87.891 Personal history of nicotine dependence; R07.89 Other chest pain; Z77.22 Contact with and (suspected) exposure to environmental tobacco smoke (acute) (chronic); R06.02 Shortness of breath
CPT/HCPCS: 36591; 71046; 80048; 83880; 84484; 85025; 87811; 93005; 94640; 99285; A4216

== ENCOUNTER → 2021-12-08 | Outpatient (CLI) | payer MEDICARE, SELFPAY ==
--- NOTE | 2021-12-08 11:33 | US_ITS ---
STUDY: THYROID ULTRASOUND REASON FOR EXAM: Female, 76 years old. Nodules noted on CT TECHNIQUE: Ultrasound evaluation of the thyroid was performed with real-time and static eagle-scale imaging. COMPARISON: 11/18/2021 FINDINGS: RIGHT LOBE: The right lobe of the thyroid gland measures 5.1 x 1.8 x 2.1 cm. There is a heterogeneous echotexture. Multiple complex solid and cystic nodules largest measures 1.8 x 1.6 x 1.2 cm. Nodules are mixed cystic and solid, hypoechoic, [id number], smoothly marginated and contains no echogenic foci. Nodules are mildly suspicious. Recommend follow-up thyroid ultrasounds at 1, 3 and 5 years. LEFT LOBE: The left lobe of the thyroid gland measures 5.1 x 1.8 x 1.5 cm. There is a heterogeneous echotexture. Multiple solid and cystic nodules also noted in the left lobe largest measures 1.5 x 1.4 x 1.2 cm. Nodules are mixed cystic and solid, hypoechoic, [id number], smoothly marginated and contains no echogenic foci. Nodules are mildly suspicious. Recommend follow-up thyroid ultrasounds at 1, 3 and 5 years. ISTHMUS: The isthmus measures 4.7 mm. The regional lymph nodes are normal. US/Thyroid IMPRESSION: Enlarged heterogeneous thyroid gland with multiple bilateral solid and cystic complex nodules. Follow-up described above. Electronically Signed: Mendoza Morales MD at 10:17 EDT ,
== END | disposition home or self-care (01) ==
LOC: US 11:33
PROVIDERS: PCP Internal Medicine; Referring Provider Nurse Practitioner Family; Visit Provider Nurse Practitioner Family
DX: E04.1 Nontoxic single thyroid nodule (principal)
CPT/HCPCS: 76536

== ENCOUNTER 2022-01-18 02:55 | Emergency (ER) | payer MEDICARE, SELFPAY ==
[2022-01-18 02:56] VITALS: BP 178/78; PULSE 85; RESP 15; TEMP 36.1; O2SAT 95; BMI 34.4
[2022-01-18 02:58] VITALS: BP 178/78; PULSE 85; RESP 15; TEMP 36.1; O2SAT 95
--- NOTE | 2022-01-18 03:21 | EDS_ITS ---
HPI History of Present Illness Chief Complaint: Wound Check Detail of Chief Complaint: Yeast infection Informant: patient Onset/Context/Timing Onset: Yesterday Narrative Narrative: Patient presents secondary to concern for yeast infection. She states she has a red painful rash on the groin line and in her abdominal fold. She first noted symptoms yesterday. Patient currently is undergoing chemotherapy for breast cancer. She is treated every Tuesday. She is had no fever or chills. [facility] Medical History Abnormal mammogram of left breast Anxiety Anxiety and depression Arthritis Asthma Blood clot in vein 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 Breast lump Breast pain, left Chest pain Chronic bronchitis CINV (chemotherapy-induced nausea and vomiting) DVT (deep venous thrombosis) Encounter for chemotherapy management Encounter for education Encounter for screening for COVID-19 Environmental allergies Fractures involving multiple body regions H/O emotional problems History of echocardiogram History of stress test Hypertension Hypokalemia Kidney stones Left shoulder pain Left thyroid nodule Non-smoker Pneumonia Pulmonary embolism URI (upper respiratory infection) Vision problems Wears dentures Wears glasses Home Medications amlodipine 5 mg tablet 7.5 mg PO DAILY 3 months #135 tabs 09/29/21 [Rx Last Taken 11/20/21] paroxetine HCl 20 mg tablet (Paxil) 20 mg PO DAILY #90 tabs 09/29/21 [Rx Last Taken 11/19/21] lidocaine-prilocaine 2.5 %-2.5 % topical cream 1 applic topical ONCE PRN port access 30 days #30 grams 11/26/21 [Rx Last Taken Unknown] ondansetron 8 mg disintegrating tablet 8 mg PO Q8H PRN nausea and vomiting #30 tabs 11/26/21 [Rx Last Taken Unknown] prochlorperazine maleate 10 mg tablet 10 mg PO Q6H PRN nausea and vomiting #30 tabs 11/26/21 [Rx Last Taken Unknown] albuterol sulfate 90 mcg/actuation aerosol inhaler (Ventolin HFA) 1 - 2 puff inhalation Q4H PRN PRN Wheezing ##1 12/06/21 [Rx Last Taken Unknown] apixaban 5 mg (74 tabs) tablets in a dose pack (Eliquis DVT-PE Treat 30D Start) 5 mg PO BID #60 tabs 12/30/21 [Rx Last Taken Unknown] nystatin 100,000 unit/gram topical ointment 1 applic topical BID #30 grams 01/18/22 [Rx Last Taken Unknown] Allergy/AdvReac Type Severity Reaction Status Date / Time Penicillins Allergy Hives Verified 01/13/22 08:17 Family History Father Alcoholism Asthma Mother Anxiety Blood clot in vein Myocardial infarction Grandmother Blood clot in vein Myocardial infarction Brother Myocardial infarction Aunt Breast cancer Grandmother CVA (cerebral vascular accident) Daughter Suicide attempt Other Colon cancer Surgical History History of hysterectomy History of shoulder surgery History of tonsillectomy Hx of tubal ligation Social History Smoking Status: Never smoker alcohol intake: never substance use type: does not use caffeine: Yes Type: carbonated beverages Number of servings: 2 what type of physical activity do you participate in: none seatbelt use: always do you feel safe at home: Yes ROS ROS ED Constitutional Constitutional ED: Denies chills or fever(s) Eyes Eyes: Denies change in vision or discharge from eye(s) ENT ENT ED: Denies discharge from eye(s), rhinorrhea or sore throat Cardiovascular Cardiovascular: Denies chest pain or palpitations Respiratory/Chest Respiratory/Chest: Denies cough or dyspnea Gastrointestinal Gastrointestinal: Denies abdominal pain, diarrhea, nausea or vomiting Genitourinary Genitourinary ED: Denies difficulty urinating or dysuria Musculoskeletal Musculoskeletal: Denies back pain or extremity pain Integumentary Reports rash; Denies Abrasions Neurologic Neurologic: Denies headache(s) or weakness Allergic/Immunologic Allergic/Immunologic ED: Denies lip swelling or urticaria EXAM Physical Exam Const Vital Signs: 01/18/22 02:56 01/18/22 02:58 Temperature 97 F L 97 F L Temperature Source Temporal Temporal Pulse Rate 85 85 Respiratory Rate 15 15 Blood Pressure 178/78 H 178/78 H Blood Pressure Mean 111 111 Pulse Ox 95 95 Oxygen Delivery Method Room Air Room Air Positive well nourished and well developed General Appearance ED: well developed HEENT Reports normocephalic and head/scalp atraumatic Eyes PERRL and EOMs intact bilaterally Neck supple Chest Wall inspection of chest normal and palpation of chest normal Resp normal respiratory effort and clear to auscultation bilaterally Cardio regular rate and regular rhythm GI normal to inspection, nondistended, normoactive bowel sounds Palpation: soft Extremity normal to inspection Neuro oriented x3 and no sensory deficits noted Sensorium / Orientation: alert Motor Exam: strength 5/5 throughout Psych mental status grossly normal Skin Skin Narrative: Pily yeast infection noted along the bilateral groin lines and along the abdominal fold. No sign of secondary infection at this time. MDM MDM MDM Narrative Medical decision making narrative: For nicePatient is given a single dose of Diflucan here along with nystatin cream to the area. Cream will be sent to the pharmacy for her. Encouraged to follow-up with her family doctor as well as her oncologist. Discharge Plan Triage Chief Complaint: Wound Check ED Provider: Merle Posada Dx/Rx/DC Orders Clinical Impression: Pily infection Instructions: ED Pily Skin Infection (Adult) Prescriptions: New nystatin 100,000 unit/gram ointment 1 applic topical BID Qty: 30 2RF No Action amlodipine 5 mg tablet 7.5 mg PO DAILY 90 Days Qty: 135 2RF paroxetine HCl [Paxil] 20 mg tablet 20 mg PO DAILY Qty: 90 3RF lidocaine-prilocaine 2.5-2.5 % cream 1 applic topical ONCE PRN (Reason: port access) 30 Days Qty: 30 2RF prochlorperazine maleate 10 mg tablet 10 mg PO Q6H PRN (Reason: nausea and vomiting) Qty: 30 2RF ondansetron 8 mg tablet,disintegrating 8 mg PO Q8H PRN (Reason: nausea and vomiting) Qty: 30 2RF albuterol sulfate [Ventolin HFA] 90 mcg/actuation HFA aerosol inhaler 1 - 2 puff inhalation Q4H PRN PRN (Reason: Wheezing) Qty: 1 0RF Rx Instructions: may substitute for different brand of albuterol if needed Eliquis DVT-PE Treat 30D Start 5 mg (74 tabs) tablets,dose pack 5 mg PO BID Qty: 60 1RF Primary Care Provider: Michael Corcoran Referrals: Michael Corcoran MD [Primary Care Provider] - 1-2 Weeks Activity Restrictions/Additional Instructions: Please be sure to notify your oncologist of your infection before your next chemotherapy treatment. Disposition Disposition: Home, Self Care
[2022-01-18] MEDS: Fluconazole 100 MG Tablet 200 MG PO (03:28)
[2022-01-18 03:41] VITALS: BP 160/74; PULSE 72; RESP 18; TEMP 35.7; O2SAT 96
[2022-01-18] MEDS: Nystatin/Triamcin Cream Tube 1 APPLIC TOPICAL (03:55)
== END 2022-01-18 03:59 | disposition home or self-care (01) ==
PROVIDERS: Emergency Provider Emergency Medicine; PCP Internal Medicine; Visit Provider Emergency Medicine
DX: B37.9 Candidiasis, unspecified (principal); C50.919 Malignant neoplasm of unspecified site of unspecified female breast; I10 Essential (primary) hypertension; Z80.3 Family history of malignant neoplasm of breast; Z80.0 Family history of malignant neoplasm of digestive organs
CPT/HCPCS: 99283

== ENCOUNTER 2022-01-20 17:42 | Emergency (ER) | payer MEDICARE, SELFPAY ==
[2022-01-20 17:43] VITALS: BP 88/70; PULSE 100; RESP 18; TEMP 35.7; O2SAT 96; BMI 34.9
--- NOTE | 2022-01-20 18:31 | EX.ED.DYSGE1 ---
HPI History of Present Illness Chief Complaint: Complaint Informant: patient and family Onset/Context/Timing Onset: Days Location: groin Worsened by: nothing Relieved by: nothing Associated Symptoms Associated Symptoms: painful Narrative Narrative: Chemotherapy patient. Over last weekend she developed a skin infection to her groin that look like yeast. She was treated with nystatin ointment, and it may be looks worse. No fevers. She is having a lot of pain to the site and Tylenol is not helping. She takes anticoagulation. Allergic to penicillin. [facility] Medical History Abnormal mammogram of left breast Anxiety Anxiety and depression Arthritis Asthma Blood clot in vein 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 Breast lump Breast pain, left Chest pain Chronic bronchitis CINV (chemotherapy-induced nausea and vomiting) DVT (deep venous thrombosis) Encounter for chemotherapy management Encounter for education Encounter for screening for COVID-19 Environmental allergies Fractures involving multiple body regions H/O emotional problems History of echocardiogram History of stress test Hypertension Hypokalemia Kidney stones Left shoulder pain Left thyroid nodule Non-smoker Pneumonia Pulmonary embolism URI (upper respiratory infection) Vision problems Wears dentures Wears glasses Home Medications amlodipine 5 mg tablet 7.5 mg PO DAILY 3 months #135 tabs 09/29/21 [Rx Last Taken 11/20/21] paroxetine HCl 20 mg tablet (Paxil) 20 mg PO DAILY #90 tabs 09/29/21 [Rx Last Taken 11/19/21] lidocaine-prilocaine 2.5 %-2.5 % topical cream 1 applic topical ONCE PRN port access 30 days #30 grams 11/26/21 [Rx Last Taken Unknown] ondansetron 8 mg disintegrating tablet 8 mg PO Q8H PRN nausea and vomiting #30 tabs 11/26/21 [Rx Last Taken Unknown] prochlorperazine maleate 10 mg tablet 10 mg PO Q6H PRN nausea and vomiting #30 tabs 11/26/21 [Rx Last Taken Unknown] albuterol sulfate 90 mcg/actuation aerosol inhaler (Ventolin HFA) 1 - 2 puff inhalation Q4H PRN PRN Wheezing ##1 12/06/21 [Rx Last Taken Unknown] apixaban 5 mg (74 tabs) tablets in a dose pack (Eliquis DVT-PE Treat 30D Start) 5 mg PO BID #60 tabs 12/30/21 [Rx Last Taken Unknown] nystatin 100,000 unit/gram topical ointment 1 applic topical BID #30 grams 01/18/22 [Rx Last Taken Unknown] cephalexin 500 mg capsule 500 mg PO Q6 #20 CAPSULES 01/20/22 [Rx Last Taken Unknown] fluconazole 150 mg tablet 150 mg PO QWEEK #4 tabs 01/20/22 [Rx Last Taken Unknown] oxycodone-acetaminophen 5 mg-325 mg tablet (Percocet) 1 tab PO Q6H PRN pain 3 days #12 tabs 01/20/22 [Rx Last Taken Unknown] sulfamethoxazole 800 mg-trimethoprim 160 mg tablet (Bactrim DS) 1 tab PO Q12H #10 tabs 01/20/22 [Rx Last Taken Unknown] Allergy/AdvReac Type Severity Reaction Status Date / Time Penicillins Allergy Hives Verified 01/20/22 17:42 Family History Father Alcoholism Asthma Mother Anxiety Blood clot in vein Myocardial infarction Grandmother Blood clot in vein Myocardial infarction Brother Myocardial infarction Aunt Breast cancer Grandmother CVA (cerebral vascular accident) Daughter Suicide attempt Other Colon cancer Surgical History History of hysterectomy History of shoulder surgery History of tonsillectomy Hx of tubal ligation Social History Smoking Status: Never smoker alcohol intake: never substance use type: does not use caffeine: Yes Type: carbonated beverages Number of servings: 2 what type of physical activity do you participate in: none seatbelt use: always do you feel safe at home: Yes ROS ROS ED Constitutional Constitutional ED: Denies chills or fever(s) Eyes Eyes: Denies blurry vision ENT ENT ED: Denies ear pain Cardiovascular Cardiovascular: Denies chest pain Respiratory/Chest Respiratory/Chest: Denies cough Gastrointestinal Gastrointestinal: Denies abdominal pain Genitourinary Genitourinary ED: Denies dysuria Musculoskeletal Musculoskeletal: Denies arthralgias Integumentary Reports rash; Denies abscess Neurologic Neurologic: Denies headache(s) Psychiatric Psychiatric: Denies anxiety Endocrine Endocrinology: Denies cold intolerance Allergic/Immunologic Allergic/Immunologic ED: Denies mouth swelling EXAM Physical Exam Const Vital Signs: 01/20/22 17:43 Temperature 96.3 F L Temperature Source Temporal Pulse Rate 100 Respiratory Rate 18 Blood Pressure 88/70 L Blood Pressure Mean 76 Pulse Ox 96 Oxygen Delivery Method Room Air Positive well nourished and well developed General Appearance ED: well developed Eyes PERRL and EOMs intact bilaterally Resp normal respiratory effort Cardio regular rate Extremity normal to inspection Neuro oriented x3 and CN's II-XII intact bilaterally Skin Skin Narrative: Intertriginous rash in the inguinal areas and under her abdominal pannus bilaterally. Minimal surrounding erythema. No abscesses. The remainder of her skin is unremarkable. MDM MDM MDM Narrative Medical decision making narrative: I do believe that the rash does represent Pily and that she is on an appropriate treatment. Will add an oral agent as well fluconazole weekly. We will add antibiotics for cellulitis coverage Keflex and Bactrim. She has an allergy to penicillin, but I do not believe this will cross-react with the Keflex. She will receive her first dose in the ED. We will also prescribe pain medication that she can take as needed. She was referred to the wound care center for follow-up. Return for fevers or any other new or worsening issues. She would like to try outpatient therapy still and will return if worse. Impression #1 tinea cruris Disposition is discharged home Discharge Plan Triage Chief Complaint: Complaint ED Provider: Nicho Benavidez Dx/Rx/DC Orders Clinical Impression: Tinea corporis Prescriptions: New fluconazole 150 mg tablet 150 mg PO QWEEK Qty: 4 0RF cephalexin 500 mg capsule 500 mg PO Q6 Qty: 20 0RF sulfamethoxazole-trimethoprim [Bactrim DS] 800-160 mg tablet 1 tab PO Q12H Qty: 10 0RF oxycodone-acetaminophen [Percocet] 5-325 mg tablet 1 tab PO Q6H PRN (Reason: pain) 3 Days Qty: 12 0RF No Action amlodipine 5 mg tablet 7.5 mg PO DAILY 90 Days Qty: 135 2RF paroxetine HCl [Paxil] 20 mg tablet 20 mg PO DAILY Qty: 90 3RF lidocaine-prilocaine 2.5-2.5 % cream 1 applic topical ONCE PRN (Reason: port access) 30 Days Qty: 30 2RF prochlorperazine maleate 10 mg tablet 10 mg PO Q6H PRN (Reason: nausea and vomiting) Qty: 30 2RF ondansetron 8 mg tablet,disintegrating 8 mg PO Q8H PRN (Reason: nausea and vomiting) Qty: 30 2RF albuterol sulfate [Ventolin HFA] 90 mcg/actuation HFA aerosol inhaler 1 - 2 puff inhalation Q4H PRN PRN (Reason: Wheezing) Qty: 1 0RF Rx Instructions: may substitute for different brand of albuterol if needed nystatin 100,000 unit/gram ointment 1 applic topical BID Qty: 30 2RF Eliquis DVT-PE Treat 30D Start 5 mg (74 tabs) tablets,dose pack 5 mg PO BID Qty: 60 1RF Primary Care Provider: Michael Corcoran Referrals: Michael Corcoran MD [Primary Care Provider] - Clarence Vásquez MD [Med Staff - Active Staff] - Disposition Disposition: Home, Self Care
[2022-01-20] MEDS: HYDROcodone Bitartrate/Apap 5/325 Tablet PO (18:50)
[2022-01-20] MEDS: Cephalexin 250 MG Capsule 500 MG PO (18:50)
[2022-01-20] MEDS: Smz/Tmp Ds Tablet 1 TABLET PO (18:50)
== END 2022-01-20 18:58 | disposition home or self-care (01) ==
PROVIDERS: Emergency Provider Emergency Medicine; PCP Internal Medicine; Visit Provider Emergency Medicine
DX: B35.4 Tinea corporis (principal); I10 Essential (primary) hypertension; B35.6 Tinea cruris
CPT/HCPCS: 99283

== ENCOUNTER 2022-02-12 13:44 | Emergency (ER) | payer MEDICARE, SELFPAY ==
[2022-02-12 13:47] VITALS: BP 109/70; PULSE 91; RESP 16; TEMP 36.3; O2SAT 98; BMI 33.2
--- NOTE | 2022-02-12 14:34 | EX.ED.DYSGE1 ---
HPI History of Present Illness Chief Complaint: Diarrhea Detail of Chief Complaint: Diarrhea and nausea Informant: patient Onset/Context/Timing Onset: Weeks Current Severity: Moderate Maximum Severity: Moderate Narrative Narrative: Patient reportedly sent in by her oncologist secondary to nausea and diarrhea. She is on chemotherapy for breast cancer, last treatment on 1018. She states she gets infusions every 3 weeks. On the she developed nausea on the she developed diarrhea. She continues with these symptoms. She states she has very poor appetite and no interest in food. She states she is still urinating but no she is not drinking as much as she should be. She denies fever or chills. She has no abdominal pain but states her abdomen just feels queasy. [facility] Medical History Abnormal mammogram of left breast Anxiety Anxiety and depression Arthritis Asthma Blood clot in vein 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 Breast lump Breast pain, left Chest pain Chronic bronchitis CINV (chemotherapy-induced nausea and vomiting) DVT (deep venous thrombosis) Encounter for chemotherapy management Encounter for education Encounter for screening for COVID-19 Environmental allergies Fractures involving multiple body regions H/O emotional problems History of echocardiogram History of stress test Hypertension Hypokalemia Kidney stones Left shoulder pain Left thyroid nodule Non-smoker Pneumonia Pulmonary embolism URI (upper respiratory infection) Vision problems Wears dentures Wears glasses Home Medications amlodipine 5 mg tablet 7.5 mg PO DAILY 3 months #135 tabs 09/29/21 [Rx Last Taken 11/20/21] paroxetine HCl 20 mg tablet (Paxil) 20 mg PO DAILY #90 tabs 09/29/21 [Rx Last Taken 11/19/21] lidocaine-prilocaine 2.5 %-2.5 % topical cream 1 applic topical ONCE PRN port access 30 days #30 grams 11/26/21 [Rx Last Taken Unknown] ondansetron 8 mg disintegrating tablet 8 mg PO Q8H PRN nausea and vomiting #30 tabs 11/26/21 [Rx Last Taken Unknown] prochlorperazine maleate 10 mg tablet 10 mg PO Q6H PRN nausea and vomiting #30 tabs 11/26/21 [Rx Last Taken Unknown] albuterol sulfate 90 mcg/actuation aerosol inhaler (Ventolin HFA) 1 - 2 puff inhalation Q4H PRN PRN Wheezing ##1 12/06/21 [Rx Last Taken Unknown] apixaban 5 mg (74 tabs) tablets in a dose pack (Eliquis DVT-PE Treat 30D Start) 5 mg PO BID #60 tabs 12/30/21 [Rx Last Taken Unknown] nystatin 100,000 unit/gram topical ointment 1 applic topical BID #30 grams 01/18/22 [Rx Last Taken Unknown] cephalexin 500 mg capsule 500 mg PO Q6 #20 CAPSULES 01/20/22 [Rx Last Taken Unknown] fluconazole 150 mg tablet 150 mg PO QWEEK #4 tabs 01/20/22 [Rx Last Taken Unknown] oxycodone-acetaminophen 5 mg-325 mg tablet (Percocet) 1 tab PO Q6H PRN pain 3 days #12 tabs 01/20/22 [Rx Last Taken Unknown] sulfamethoxazole 800 mg-trimethoprim 160 mg tablet (Bactrim DS) 1 tab PO Q12H #10 tabs 01/20/22 [Rx Last Taken Unknown] promethazine 12.5 mg tablet 12.5 mg PO TID PRN nausea and vomiting #14 tabs 02/12/22 [Rx Last Taken Unknown] Allergy/AdvReac Type Severity Reaction Status Date / Time Penicillins Allergy Hives Verified 02/12/22 13:47 Family History Father Alcoholism Asthma Mother Anxiety Blood clot in vein Myocardial infarction Grandmother Blood clot in vein Myocardial infarction Brother Myocardial infarction Aunt Breast cancer Grandmother CVA (cerebral vascular accident) Daughter Suicide attempt Other Colon cancer Surgical History History of hysterectomy History of shoulder surgery History of tonsillectomy Hx of tubal ligation Social History Smoking Status: Never smoker alcohol intake: never substance use type: does not use caffeine: Yes Type: carbonated beverages Number of servings: 2 what type of physical activity do you participate in: none seatbelt use: always do you feel safe at home: Yes ROS ROS ED Constitutional Constitutional ED: Denies chills or fever(s) Eyes Eyes: Denies change in vision or discharge from eye(s) ENT ENT ED: Denies discharge from eye(s), rhinorrhea or sore throat Cardiovascular Cardiovascular: Denies chest pain or palpitations Respiratory/Chest Respiratory/Chest: Denies cough or dyspnea Gastrointestinal Gastrointestinal: Reports diarrhea, nausea and vomiting; Denies abdominal pain Genitourinary Genitourinary ED: Denies dysuria Musculoskeletal Musculoskeletal: Denies back pain or extremity pain Integumentary Denies Abrasions or rash Neurologic Neurologic: Reports weakness; Denies headache(s) Psychiatric Psychiatric: Denies anxiety or depression Allergic/Immunologic Allergic/Immunologic ED: Denies lip swelling or urticaria EXAM Physical Exam Const Vital Signs: 02/12/22 13:47 02/12/22 16:53 02/12/22 16:53 Temperature 97.4 F L 98.0 F Temperature Source Temporal Oral Pulse Rate 91 83 83 Respiratory Rate 16 16 16 Blood Pressure 109/70 130/56 H 130/56 H Blood Pressure Mean 83 80 80 Pulse Ox 98 98 98 Oxygen Delivery Method Room Air Room Air Room Air Positive well nourished and well developed General Appearance ED: well developed HEENT Reports normocephalic, head/scalp atraumatic and dry mucous membranes Mouth ED: Yes dry mucous membranes Mouth: dry mucous membranes Eyes PERRL and EOMs intact bilaterally Neck supple Chest Wall inspection of chest normal and palpation of chest normal Resp normal respiratory effort and clear to auscultation bilaterally Cardio regular rate and regular rhythm GI non-tender Auscultation: hypoactive bowel sounds Palpation: soft Extremity normal to inspection Neuro oriented x3 and no sensory deficits noted Sensorium / Orientation: alert Motor Exam: strength 5/5 throughout Psych mental status grossly normal Skin no rashes or lesions noted MDM MDM MDM Narrative Medical decision making narrative: Patient reports that Zofran and Compazine at home of not been helping her nausea. She was given a small dose of IM Phenergan. Lab work obtained along with urinalysis. Stool studies ordered. Lab Data Attestation: I reviewed the patient's lab results. Labs: Laboratory Results - last 24 hr 02/12/22 02/12/22 02/12/22 14:45 15:05 15:05 WBC 13.9 H RBC 3.50 L Hgb 10.7 L Hct 31.2 L MCV 89.1 MCH 30.6 MCHC 34.3 RDW Std Deviation 53.5 H RDW Coeff of Nevin 16.6 H Plt Count 152 MPV 10.1 Immature Gran % (Auto) 0.900 Neut % (Auto) 79.1 H Lymph % (Auto) 10.8 L [place] % (Auto) 8.5 Eos % (Auto) 0.1 Baso % (Auto) 0.6 Absolute Neuts (auto) 11.0 H Absolute Lymphs (auto) 1.50 Nucleated RBC % 0 Sodium 139 Potassium 3.6 Chloride 106 Carbon Dioxide 27.0 Anion Gap 6 BUN 17 Creatinine 1.15 H Estim Creat Clear Calc 34.96 Est GFR (MDRD) Af Amer 59 L Est GFR (MDRD) Non-Af 49 L BUN/Creatinine Ratio 14.8 Glucose 128 H Calcium 8.6 Total Bilirubin 0.40 Direct Bilirubin 0.09 AST 15 ALT 18 Alkaline Phosphatase 104 Total Protein 6.1 L Albumin 3.2 Globulin 2.9 Urine Color Yellow Urine Clarity Sl. Cloudy Urine pH 5.0 Ur Specific [place] 1.020 Urine Protein 100 H Urine Glucose (UA) Normal Urine Ketones 15 H Urine Occult Blood 25 H Urine Nitrite Negative Urine Bilirubin 3 H Urine Urobilinogen 1 H Ur Leukocyte Esterase 500 H Urine RBC 0 SEEN Urine WBC 5-10 SEEN Ur Squamous Epith Cells 0-5 SEEN Urine Bacteria 0 SEEN Urine Mucus 0 SEEN Treatment and Re-Evaluation Narrative: White count is slightly elevated at 13.9 with 79% neutrophils. Chemistry studies largely unremarkable. Creatinine is 1.15. Glucose is 128. LFTs are unremarkable. Urinalysis shows 5-10 white cells with 0 bacteria. No nitrites are noted. Patient has not been able to provide a stool sample while in the emergency room. On repeat evaluation she is feeling somewhat improved with hydration. Abdominal exam remains benign. I do not think she needs imaging studies at this time. I will send outpatient order for stool studies that they can bring in if they are able to collect a sample. She will be given a prescription for Phenergan that she can try for nausea at home as well. Return instructions given. Discharge Plan Triage Chief Complaint: Diarrhea ED Provider: Merle Posada Dx/Rx/DC Orders Clinical Impression: Diarrhea, Nausea Prescriptions: New promethazine 12.5 mg tablet 12.5 mg PO TID PRN (Reason: nausea and vomiting) Qty: 14 0RF Rx Instructions: 3 doses during day; last dose no later than 4 hr before bedtime No Action amlodipine 5 mg tablet 7.5 mg PO DAILY 90 Days Qty: 135 2RF paroxetine HCl [Paxil] 20 mg tablet 20 mg PO DAILY Qty: 90 3RF lidocaine-prilocaine 2.5-2.5 % cream 1 applic topical ONCE PRN (Reason: port access) 30 Days Qty: 30 2RF prochlorperazine maleate 10 mg tablet 10 mg PO Q6H PRN (Reason: nausea and vomiting) Qty: 30 2RF ondansetron 8 mg tablet,disintegrating 8 mg PO Q8H PRN (Reason: nausea and vomiting) Qty: 30 2RF albuterol sulfate [Ventolin HFA] 90 mcg/actuation HFA aerosol inhaler 1 - 2 puff inhalation Q4H PRN PRN (Reason: Wheezing) Qty: 1 0RF Rx Instructions: may substitute for different brand of albuterol if needed nystatin 100,000 unit/gram ointment 1 applic topical BID Qty: 30 2RF fluconazole 150 mg tablet 150 mg PO QWEEK Qty: 4 0RF cephalexin 500 mg capsule 500 mg PO Q6 Qty: 20 0RF sulfamethoxazole-trimethoprim [Bactrim DS] 800-160 mg tablet 1 tab PO Q12H Qty: 10 0RF oxycodone-acetaminophen [Percocet] 5-325 mg tablet 1 tab PO Q6H PRN (Reason: pain) 3 Days Qty: 12 0RF Eliquis DVT-PE Treat 30D Start 5 mg (74 tabs) tablets,dose pack 5 mg PO BID Qty: 60 1RF Primary Care Provider: Michael Corcoran Referrals: Michael Corcoran MD [Primary Care Provider] - Haresh Saenz MD [Med Staff - Active Staff] - 5-7 Days Disposition Disposition: Home, Self Care
[2022-02-12 14:49] LABS: Bacteria 0 SEEN /hpf (None Seen); Mucous, Urine 0 SEEN /hpf (<or=2+); Red Blood Cells-Urine 0 SEEN /hpf (0-5)
[2022-02-12 14:52] LABS: Color, Urine Yellow (Yellow); Glucose, Dipstick Normal (Normal); Ketone-Dipstick 15 mg/dl (Negative); Leukocyte Esterase-Dipstick 500 /ul (Negative); Nitrite-Dipstick Negative (Negative); Occult Blood-Urine 25 /ul (Negative); Protein-Dipstick 100 mg/dl (Negative); Urine Clarity Sl. Cloudy (Clear); Urine Urobilinogen 1 mg/dl (Normal)
[2022-02-12 14:53] LABS: Urine Bilirubin Dipstick 3 mg/dL (Negative)
[2022-02-12 15:08] LABS: White Blood Cells 5-10 SEEN /hpf (0-5)
[2022-02-12 15:09] LABS: Squamous Epithelial Cells - UA 0-5 SEEN /hpf (5-10)
[2022-02-12] MEDS: 0.9% Normal Saline 1,000 ML 1000 ML IV (15:13)
[2022-02-12 15:14] LABS: Basophil# 0.08 X10^3/uL; Basophil% 0.6 % (0-1); Eosinophil# 0.02 X10^3/uL; Eosinophils% 0.1 % (0-5); Hematocrit 31.2 % (37-47); Hemoglobin 10.7 g/dL (12.0-15.0); Lymphocyte % 10.8 % (19-41); Mean Corp Hgb Conc 34.3 g/dL (32-36); Mean Corpuscular Hgb 30.6 pg (27.0-32.0); Mean Corpuscular Volume 89.1 fL (81-99); Mean Platelet Vol. 10.1 fl (6.2-12.0); Monocyte# 1.18 X10^3/uL; Monocyte% 8.5 % (0-10); NRBC Flagged by Analyzer 0 % (0-5); Neutrophil # 10.98 X10^3/uL (2.7-7.7); Neutrophil % 79.1 % (47-70); Platelet Count 152 K/mm3 (150-450); RBC Distribution Width CV 16.6 % (11.6-14.6); RBC Distribution Width SD 53.5 fl (35.1-43.9); White Blood Count 13.9 K/mm3 (4.4-11.0)
[2022-02-12] MEDS: proMETHazine 25 MG/ML Syringe 12.5 MG IM (15:15)
[2022-02-12 15:28] LABS: AST(SGOT) 15 U/L (15-37); Alanine Aminotransfer ALT/SGPT 18 U/L (13-56); Albumin, Serum 3.2 g/dL (3.2-5.0); Alkaline Phosphatase 104 U/L (45-117); Anion Gap 6 (5-15); BUN 17 mg/dL (7-18); BUN/Creat Ratio 14.8 RATIO (10-20); Bilirubin, Direct 0.09 mg/dL (0.00-0.30); Calcium,Total 8.6 mg/dL (8.5-10.1); Chloride 106 mmol/L (98-107); Creatinine, Serum 1.15 mg/dL (0.55-1.02); EST Glomerular Filtration Rate 49 mL/min (>60); Est Glom Filt Rate - Afr Amer 59 mL/min (>60); Estimated Creatinine Clearance 34.96 ml/min; Globulin 2.9 g/dL (2.2-4.2); Glucose 128 mg/dL (74-106); Potassium 3.6 mmol/L (3.5-5.1); Protein, Total 6.1 g/dL (6.4-8.2); Sodium Level 139 mmol/L (136-145)
[2022-02-12] MEDS: 0.9% Normal Saline 1,000 ML 150 ML IV (16:14)
[2022-02-12 16:53] VITALS: BP 130/56; PULSE 83; RESP 16; TEMP 36.7; O2SAT 98
== END 2022-02-12 17:58 | disposition home or self-care (01) ==
PROVIDERS: Emergency Provider Emergency Medicine; PCP Internal Medicine; Visit Provider Emergency Medicine
DX: R19.7 Diarrhea, unspecified (principal); C50.919 Malignant neoplasm of unspecified site of unspecified female breast; I10 Essential (primary) hypertension; R11.0 Nausea
CPT/HCPCS: 80048; 80076; 81001; 85025; 99282; J7030; A4216

== ENCOUNTER 2022-03-25 23:27 | Emergency (ER) | payer MEDICARE, SELFPAY ==
[2022-03-25 23:27] VITALS: BP 151/69; PULSE 82; RESP 16; TEMP 36.7; O2SAT 95; BMI 32.5
[2022-03-25 23:31] VITALS: BP 151/69
[2022-03-26 00:16] LABS: Absolute Lymphocyte Count 1.33 X10^3/uL (0.83-4.51); Absolute Neutrophil Count 10.1 X10^3/uL (2.0-7.7); Basophil# 0.05 X10^3/uL; Basophil% 0.4 % (0-1); Eosinophil# 0.02 X10^3/uL; Eosinophils% 0.2 % (0-5); Hematocrit 30.9 % (37-47); Hemoglobin 9.9 g/dL (12.0-15.0); Lymphocyte # 1.33 X10^3/ul (0.83-4.51); Lymphocyte % 10.5 % (19-41); Mean Corpuscular Volume 96.9 fL (81-99); Mean Platelet Vol. 10.5 fl (6.2-12.0); Monocyte# 1.06 X10^3/uL; Monocyte% 8.4 % (0-10); NRBC Flagged by Analyzer 0 % (0-5); Neutrophil # 10.06 X10^3/uL (2.7-7.7); Neutrophil % 79.6 % (47-70); POSITIVE MORPHOLOGY YES; Platelet Count 133 K/mm3 (150-450); RBC Distribution Width CV 15.3 % (11.6-14.6); RBC Distribution Width SD 54.7 fl (35.1-43.9); Red Blood Count 3.19 M/mm3 (4.2-5.4); White Blood Count 12.6 K/mm3 (4.4-11.0)
[2022-03-26 00:18] LABS: Differential Indicated SCAN CRITERIA MET
[2022-03-26] MEDS: 0.9% Normal Saline 1,000 ML 999 ML IV (00:18)
[2022-03-26] MEDS: proCHLORPERazine 10 MG/2 ML Vial 5 MG IV (00:21)
[2022-03-26 00:31] LABS: Differential Comment SCANNED
[2022-03-26 00:38] LABS: AST(SGOT) 12 U/L (15-37); Alanine Aminotransfer ALT/SGPT 15 U/L (13-56); Albumin, Serum 3.1 g/dL (3.2-5.0); Alkaline Phosphatase 88 U/L (45-117); Anion Gap 8 (5-15); BUN 22 mg/dL (7-18); BUN/Creat Ratio 22.2 RATIO (10-20); Calcium,Total 8.4 mg/dL (8.5-10.1); Chloride 104 mmol/L (98-107); Creatinine, Serum 0.99 mg/dL (0.55-1.02); EST Glomerular Filtration Rate 58 mL/min (>60); Est Glom Filt Rate - Afr Amer 70 mL/min (>60); Estimated Creatinine Clearance 40.62 ml/min; Globulin 2.7 g/dL (2.2-4.2); Glucose 135 mg/dL (74-106); Lipase 64 U/L (73-393); Potassium 3.6 mmol/L (3.5-5.1); Protein, Total 5.8 g/dL (6.4-8.2); Sodium Level 138 mmol/L (136-145)
--- NOTE | 2022-03-26 01:48 | EDS_ITS ---
HPI History of Present Illness Chief Complaint: Nausea/Vomiting/Diarrhea Narrative Narrative: Patient is a 76-year-old female with past medical history of breast cancer who finished her sixth round of chemotherapy roughly 1 week ago. She states that today despite taking her home medications for nausea and vomiting has continued to do so and also have bouts of loose stool/diarrhea. She and family are concerned about dehydration based on the persistent nature of her symptoms despite taking her home medication and therefore comes in for evaluation. Patient denies any known sick contact. She also denies any recent antibiotic use or history of intestinal disorder. [facility] Medical History (Updated 03/26/22 @ 07:[address] Arun Kim, DO) Abnormal mammogram of left breast Anxiety Anxiety and depression Arthritis Asthma Blood clot in vein 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 Breast cancer, left Breast lump Breast pain, left Chest pain Chronic bronchitis CINV (chemotherapy-induced nausea and vomiting) DVT (deep venous thrombosis) Encounter for chemotherapy management Encounter for education Encounter for screening for COVID-19 Environmental allergies Fractures involving multiple body regions H/O emotional problems History of echocardiogram History of stress test Hypertension Hypokalemia Kidney stones Left shoulder pain Left thyroid nodule Non-smoker Pneumonia Pulmonary embolism URI (upper respiratory infection) Vision problems Wears dentures Wears glasses Home Medications amlodipine 5 mg tablet 7.5 mg PO DAILY 3 months #135 tabs 09/29/21 [Rx Last Taken 11/20/21] paroxetine HCl 20 mg tablet (Paxil) 20 mg PO DAILY #90 tabs 09/29/21 [Rx Last Taken 11/19/21] lidocaine-prilocaine 2.5 %-2.5 % topical cream 1 applic topical ONCE PRN port access 30 days #30 grams 11/26/21 [Rx Last Taken Unknown] ondansetron 8 mg disintegrating tablet 8 mg PO Q8H PRN nausea and vomiting #30 tabs 11/26/21 [Rx Last Taken Unknown] prochlorperazine maleate 10 mg tablet 10 mg PO Q6H PRN nausea and vomiting #30 tabs 11/26/21 [Rx Last Taken Unknown] albuterol sulfate 90 mcg/actuation aerosol inhaler (Ventolin HFA) 1 - 2 puff inhalation Q4H PRN PRN Wheezing ##1 12/06/21 [Rx Last Taken Unknown] nystatin 100,000 unit/gram topical ointment 1 applic topical BID #30 grams 01/18/22 [Rx Last Taken Unknown] cephalexin 500 mg capsule 500 mg PO Q6 #20 CAPSULES 01/20/22 [Rx Last Taken Unknown] fluconazole 150 mg tablet 150 mg PO QWEEK #4 tabs 01/20/22 [Rx Last Taken Unknown] sulfamethoxazole 800 mg-trimethoprim 160 mg tablet (Bactrim DS) 1 tab PO Q12H #10 tabs 01/20/22 [Rx Last Taken Unknown] promethazine 12.5 mg tablet 12.5 mg PO TID PRN nausea and vomiting #14 tabs 02/12/22 [Rx Last Taken Unknown] oxycodone-acetaminophen 5 mg-325 mg tablet (Percocet) 1 tab PO Q6H PRN pain 30 days #30 tabs 03/17/22 [Rx Last Taken Unknown] apixaban 5 mg tablet (Eliquis) 5 mg PO BID #60 tabs 03/22/22 [Rx Last Taken Unknown] promethazine 12.5 mg tablet 12.5 mg PO TID PRN nausea and vomiting #21 tabs 03/26/22 [Rx Last Taken Unknown] Allergy/AdvReac Type Severity Reaction Status Date / Time Penicillins Allergy Hives Verified 03/25/22 23:31 Family History Father Alcoholism Asthma Mother Anxiety Blood clot in vein Myocardial infarction Grandmother Blood clot in vein Myocardial infarction Brother Myocardial infarction Aunt Breast cancer Grandmother CVA (cerebral vascular accident) Daughter Suicide attempt Other Colon cancer Surgical History History of hysterectomy History of shoulder surgery History of tonsillectomy Hx of tubal ligation Social History Smoking Status: Never smoker alcohol intake: never substance use type: does not use caffeine: Yes Type: carbonated beverages Number of servings: 2 what type of physical activity do you participate in: none seatbelt use: always do you feel safe at home: Yes ROS ROS ED Constitutional Constitutional ED: Denies chills or fever(s) ENT ENT ED: Denies sore throat Cardiovascular Cardiovascular: Denies chest pain Respiratory/Chest Respiratory/Chest: Denies cough or dyspnea Gastrointestinal Gastrointestinal: Reports diarrhea, nausea and vomiting; Denies abdominal pain Genitourinary Genitourinary ED: Denies dysuria Musculoskeletal Musculoskeletal: Reports myalgias Integumentary Denies rash Neurologic Neurologic: Denies headache(s) Hematologic/Lymphatic Hematologic/Lymphatic: Denies easy bleeding or easy bruising EXAM Physical Exam Const Vital Signs: 03/25/22 23:27 03/25/22 23:31 03/26/22 02:10 Temperature 98.0 F Temperature Source Temporal Pulse Rate 82 77 Respiratory Rate 16 18 Blood Pressure 151/69 H 151/69 H 137/63 H Blood Pressure Mean 96 96 Pulse Ox 95 97 Oxygen Delivery Method Room Air Positive well nourished and well developed General Appearance ED: well developed HEENT Reports dry mucous membranes Mouth ED: Yes dry mucous membranes Mouth: dry mucous membranes Eyes PERRL and EOMs intact bilaterally General Eye ED: Negative for scleral icterus Neck supple Resp normal respiratory effort and clear to auscultation bilaterally Cardio regular rate and regular rhythm Rate: other Other Details: Radial pulses are +2-4 bilaterally are equal and s ymmetric GI non-tender and non-distended GI Narrative: Abdomen is soft nontender nondistended with hyperactive bowel sounds. No voluntary guarding or rigidity no pulsatile mass Auscultation: hyperactive bowel sounds Palpation: soft Extremity normal to inspection Neuro oriented x3 and CN's II-XII intact bilaterally Sensorium / Orientation: alert Psych mental status grossly normal Skin no rashes or lesions noted Skin Narrative: Skin turgor slightly increased General Skin Exam: Negative for jaundice MDM MDM MDM Narrative Medical decision making narrative: Patient presented to the ER afebrile with a soft nonsurgical abdomen so I felt no need for emergent imaging studies. Basic laboratory studies were obtained which show leukocytosis of 12.6 but there is no neutropenia present as her neutrophil count is actually elevated at 10.1. We discussed obtaining a stool study because of her immunosuppression the patient has not had any bouts of diarrhea while in the ER and after medication has been no further bouts of vomiting. Patient was given 1 L of fluid and at this reports feeling better. Her abdomen remains soft and nonsurgical. Therefore I do not feel there is need for CT scan and patient can be discharged home as her work-up does not reveal acute kidney injury or severe electrolyte derangement or neutropenia. Lab Data Attestation: I reviewed the patient's lab results. Labs: Laboratory Results - last 24 hr 03/26/22 03/26/22 00:10 00:10 WBC 12.6 H RBC 3.19 L Hgb 9.9 L Hct 30.9 L MCV 96.9 MCH 31.0 MCHC 32.0 RDW Std Deviation 54.7 H RDW Coeff of Nevin 15.3 H Plt Count 133 L MPV 10.5 Immature Gran % (Auto) 0.900 Neut % (Auto) 79.6 H Lymph % (Auto) 10.5 L [place] % (Auto) 8.4 Eos % (Auto) 0.2 Baso % (Auto) 0.4 Absolute Neuts (auto) 10.1 H Absolute Lymphs (auto) 1.33 Nucleated RBC % 0 Differential Comment SCANNED Sodium 138 Potassium 3.6 Chloride 104 Carbon Dioxide 26.0 Anion Gap 8 BUN 22 H Creatinine 0.99 Estim Creat Clear Calc 40.62 Est GFR (MDRD) Af Amer 70 Est GFR (MDRD) Non-Af 58 L BUN/Creatinine Ratio 22.2 H Glucose 135 H Calcium 8.4 L Total Bilirubin 0.30 Direct Bilirubin 0.10 AST 12 L ALT 15 Alkaline Phosphatase 88 Total Protein 5.8 L Albumin 3.1 L Globulin 2.7 Lipase 64 L Discharge Plan Triage Chief Complaint: Nausea/Vomiting/Diarrhea ED Provider: Arun Kim Dx/Rx/DC Orders Clinical Impression: Nausea vomiting and diarrhea, Dehydration, Breast cancer, left Instructions: ED Dehydration (Adult), ED Gastroenteritis, Viral (Adult) Prescriptions: New promethazine 12.5 mg tablet 12.5 mg PO TID PRN (Reason: nausea and vomiting) Qty: 21 0RF Rx Instructions: 3 doses during day; last dose no later than 4 hr before bedtime No Action amlodipine 5 mg tablet 7.5 mg PO DAILY 90 Days Qty: 135 2RF paroxetine HCl [Paxil] 20 mg tablet 20 mg PO DAILY Qty: 90 3RF lidocaine-prilocaine 2.5-2.5 % cream 1 applic topical ONCE PRN (Reason: port access) 30 Days Qty: 30 2RF prochlorperazine maleate 10 mg tablet 10 mg PO Q6H PRN (Reason: nausea and vomiting) Qty: 30 2RF ondansetron 8 mg tablet,disintegrating 8 mg PO Q8H PRN (Reason: nausea and vomiting) Qty: 30 2RF oxycodone-acetaminophen [Percocet] 5-325 mg tablet 1 tab PO Q6H PRN (Reason: pain) 30 Days Qty: 30 0RF albuterol sulfate [Ventolin HFA] 90 mcg/actuation HFA aerosol inhaler 1 - 2 puff inhalation Q4H PRN PRN (Reason: Wheezing) Qty: 1 0RF Rx Instructions: may substitute for different brand of albuterol if needed nystatin 100,000 unit/gram ointment 1 applic topical BID Qty: 30 2RF fluconazole 150 mg tablet 150 mg PO QWEEK Qty: 4 0RF cephalexin 500 mg capsule 500 mg PO Q6 Qty: 20 0RF sulfamethoxazole-trimethoprim [Bactrim DS] 800-160 mg tablet 1 tab PO Q12H Qty: 10 0RF promethazine 12.5 mg tablet 12.5 mg PO TID PRN (Reason: nausea and vomiting) Qty: 14 0RF Rx Instructions: 3 doses during day; last dose no later than 4 hr before bedtime Eliquis 5 mg tablet 5 mg PO BID Qty: 60 2RF Primary Care Provider: Michael Corcoran Referrals: Michael Corcoran MD [Primary Care Provider] - Activity Restrictions/Additional Instructions: Please keep yourself well-hydrated and use your medications as directed to control your symptoms. If you have any further concerns please return to the ER for repeat evaluation Disposition Disposition: Home, Self Care Discharge Date/Time: 03/26/22 02:11
[2022-03-26 02:10] VITALS: BP 137/63; PULSE 77; RESP 18; O2SAT 97
== END 2022-03-26 02:11 | disposition home or self-care (01) ==
PROVIDERS: Emergency Provider Emergency Medicine; PCP Internal Medicine; Visit Provider Emergency Medicine
DX: R11.2 Nausea with vomiting, unspecified (principal); C50.912 Malignant neoplasm of unspecified site of left female breast; I10 Essential (primary) hypertension; R19.7 Diarrhea, unspecified; E86.0 Dehydration; J45.909 Unspecified asthma, uncomplicated; F41.9 Anxiety disorder, unspecified; F32.A Depression, unspecified; Z86.718 Personal history of other venous thrombosis and embolism
CPT/HCPCS: 80048; 80076; 83690; 85025; 87428; 96361; 96374; 99282; J7030; A4216

== ENCOUNTER → 2022-04-09 | Outpatient (CLI) | payer MEDICARE, SELFPAY ==
--- NOTE | 2022-04-09 13:12 | MRI_ITS ---
STUDY: BILATERAL BREAST MR WITHOUT AND WITH CONTRAST REASON FOR EXAM: Female, 76 years old. Left breast cancer. Follow-up after chemotherapy. Preoperative evaluation. TECHNIQUE: Multi-sequence multi-echo imaging of both breasts was performed with a dedicated breast coil. T1-weighted and T2-weighted images were performed before the administration of contrast. T1-weighted images were also performed after the intravenous administration of 18 cc of Dotarem contrast. COMPARISON: Prior breast MRI study dated November 23, 2021, left breast ultrasound dated October 05, 2021 and bilateral diagnostic mammogram dated October 05, 2021. FINDINGS: RIGHT BREAST: Scattered fibroglandular tissue with minimal background enhancement. There are no abnormal enhancing masses or areas of non-mass enhancement in the right breast. LEFT BREAST: Scattered fibroglandular tissue is minimal background enhancement The far posterior, upper and slightly medial breast mass at approximately the 1:00 position the medial now measures 1.8 cm x 1.5 cm x 1.2 cm and has substantially decreased in size since the comparison MRI study. The medial lesion approximately the 3:00 position now measures 1 cm x 9 mm x 8 mm and has also substantially decreased in size since the comparison breast MRI study. Speckled nodular enhancement in the lateral aspect of the breast extending from the lower outer quadrant to the upper outer quadrant behind the tissue clip marker artifact is present but not possible to accurately measure. Multiple small lymph nodes with fatty delicia in the left axilla are still present. There is no abnormality in the visualized regions of the chest or liver. MRI/Breast Bilateral W/O and W IMPRESSION: Substantial decrease in enhancement of the 2 main breast masses. Residual speckles nodular enhancement in the area of the primary large mass in the outer aspect of the left breast. No new masses. Morphologically normal left axillary lymph nodes. CATEGORY: BIRADS Category 6: Known Biopsy-Proven Malignancy - Appropriate Action Should Be Taken. A letter regarding these results will be sent to the patient by the facility within 30 days. Electronically Signed: Palmer Hernadez, at 9:42 EST ,
[2022-04-09] MEDS: 0.9 % NaCl (Sterile) Posiflush 10 mL IV (14:30)
== END | disposition home or self-care (01) ==
LOC: MRI 13:12
PROVIDERS: PCP Internal Medicine; Referring Provider Surgery; Visit Provider Surgery
DX: N64.4 Mastodynia (principal); C50.912 Malignant neoplasm of unspecified site of left female breast; Z92.21 Personal history of antineoplastic chemotherapy
CPT/HCPCS: 77049; A9581; A4216; C8908

== ENCOUNTER 2022-04-23 12:58 | Observation (INO) | payer MEDICARE, SELFPAY ==
[2022-04-23] VITALS (10 sets, daily range): BP systolic 94–119; BP diastolic 50–61; PULSE 63–68; RESP 12–18; TEMP 36.2–37.3; O2SAT 90–100; BMI 32.2
--- NOTE | 2022-04-23 | IMM_PTH ---
PATIENT: PAUL BARONE LOC: [facility] U#:[id number] AGE/SX: 76/F ROOM: [facility] RE04/23/[address]: Dr. Melyssa Saab MD : 1945 BED: 1 DIS: 04/24/2022 SPEC #: [id number] RECD: 04/28/22 14:08 STATUS: ARSENIO REFarhad #: [id number] LIONEL: 04/23/22 00:[address]: Melyssa Saab DEPT: IMMUNOHISTOCHEMISTRY RECD BY: Ingrid Bui ENTERED: 04/28/22 14:18 SP TYPE: IMMUNO OTHR DR: Dr. Michael Corcoran MD Tissues: B - Axillary lymph node, NOS Procedures: CK7 (add) Pankeratin (initial) Pankeratin (add) PHYSICIAN & INSTITUTION [place] [id number] SPECIMEN INFORMATION: Tissue Source: B ? Left axillary lymph nodes and contents Clinical Info: Left breast cancer Specimen Number: [id number] B1, B2, B5, B7, B8, B9, B10 CPT code: 82897, 59426 x13 METHODOLOGY: Deparaffinized sections of prefer/formalin-fixed tissue or PAP/DQ stained slides are incubated with monoclonal/polyclonal antibodies/oligonucleotide probes. Localization is made via biotin free immunoperoxidase method. Appropriate controls are performed and reacted as expected. Results on target cell population are indicated in the following table: RESULTS: ANTIBODY / CLONE RESULT Block B1 AE1-3 (AE1/AE3/PCK26) negative CK7 (OV-TL12/30) negative Block B2 AE1-3 (AE1/AE3/PCK26) positive, isolated tumor cells CK7 (OV-TL12/30) positive, isolated tumor cells Block B5 AE1-3 (AE1/AE3/PCK26) positive, isolated tumor cells CK7 (OV-TL12/30) positive, isolated tumor cells Block B7 AE1-3 (AE1/AE3/PCK26) negative CK7 (OV-TL12/30) negative Block B8 AE1-3 (AE1/AE3/PCK26) negative CK7 (OV-TL12/30) negative Block B9 AE1-3 (AE1/AE3/PCK26) positive, micrometastasis CK7 (OV-TL12/30) positive, micrometastasis Block B10 AE1-3 (AE1/AE3/PCK26) negative CK7 (OV-TL12/30) negative These tests were developed and their performance characteristics determined by [facility]. They may not have been cleared or approved by the U.S. Food and Drug Administration. The FDA has determined that such clearance or approval is not necessary. The above immunohistochemical/dualISH markers are ordered and reviewed by the Pathologist. INTERPRETATION: B. Left axillary lymph nodes and contents, biopsy: One lymph node with micrometastasis and two lymph nodes with isolated tumor cells out of 18 lymph nodes. SJ:rajeev 04/29/2022 Case has been reviewed in consultation with Dr. Almazan who concurs with the above diagnosis. IDC:AM
--- NOTE | 2022-04-23 07:41 | NM_ITS ---
PROCEDURE: NUCLEAR MEDICINE Injection [place] Node - LEFT breast(s). REASON FOR EXAM: Female, 76 years old. Left breast cancer. TECHNIQUE: [place] node localization using radionuclide methods of the LEFT breast(s) was performed following subcutaneous administration of 1.1 mCi of of sulfur colloid Tc-99m. FINDINGS: 1.1 mCi of technetium labeled sulfur colloid was injected subcutaneously in 4 equal aliquots in the periareolar region of the left breast. NM/Lymph Node Injection Only IMPRESSION: Subcutaneous injection of 1.1 mCi of technetium labeled sulfur colloid in 4 equal aliquots in the periareolar region of the left breast. Electronically Signed: Augustin Ruiz MD at 8:57 EST ,
--- NOTE | 2022-04-23 08:23 | HP.PCM_ITS ---
History and Physical Date of Admission: 04/23/22 Date of Service:? 03/18/22 MR#: [id number] Acct: [id number] Name:PAUL SCOTT Rep #: [id number] : 1945 ? ? Provider: Dr. Melyssa Saab MD Age/Sex:? 76/F ? ? Location: [facility] [place] Status: Signed Intake Vital Signs ? 03/17/2209:08 03/17/2210:21 03/18/2209:49 Height 5 ft 3 in 5 ft 3 in 5 ft 3 in Weight: 186 lb 5.002 oz 186 lb 5.002 oz 186 lb BMI 33.0 ? 32.9 BP ? ? 106/70 Blood Pressure Location ? ? Rt brachial Position ? ? Sitting Respiration ? ? 18 Pulse ? ? 86 Pulse Source ? ? Monitor Pulse Oximetry (%) ? ? 98 Oxygen Delivery Method ? ? room air Intake Visit Reasons:?Discuss Surgical Management Chief Complaint: Discuss mastectomy Branch Office Administrator Required: No Accompanied by: Daughter Is patient in pain?: No Allergies Penicillins Allergy (Verified 03/18/22 09:50) Hives Medications amlodipine 5 mg tablet 7.5 mg PO DAILY 3 months #135 tabs 09/29/21 [Rx Confirmed 03/18/22] paroxetine HCl 20 mg tablet (Paxil) 20 mg PO DAILY #90 tabs 09/29/21 [Rx Confirmed 03/18/22] lidocaine-prilocaine 2.5 %-2.5 % topical cream 1 applic topical ONCE PRN port access 30 days #30 grams 11/26/21 [Rx Confirmed 03/18/22] ondansetron 8 mg disintegrating tablet 8 mg PO Q8H PRN nausea and vomiting #30 tabs 11/26/21 [Rx Confirmed 03/18/22] prochlorperazine maleate 10 mg tablet 10 mg PO Q6H PRN nausea and vomiting #30 tabs 11/26/21 [Rx Confirmed 03/18/22] albuterol sulfate 90 mcg/actuation aerosol inhaler (Ventolin HFA) 1 - 2 puff inhalation Q4H PRN PRN Wheezing ##1 12/06/21 [Rx Confirmed 03/18/22] apixaban 5 mg (74 tabs) tablets in a dose pack (Eliquis DVT-PE Treat 30D Start) 5 mg PO BID #60 tabs 12/30/21 [Rx Confirmed 03/18/22] nystatin 100,000 unit/gram topical ointment 1 applic topical BID #30 grams 01/18/22 [Rx Confirmed 03/18/22] cephalexin 500 mg capsule 500 mg PO Q6 #20 CAPSULES 01/20/22 [Rx Confirmed 03/18/22] fluconazole 150 mg tablet 150 mg PO QWEEK #4 tabs 01/20/22 [Rx Confirmed 03/18/22] sulfamethoxazole 800 mg-trimethoprim 160 mg tablet (Bactrim DS) 1 tab PO Q12H #10 tabs 01/20/22 [Rx Confirmed 03/18/22] promethazine 12.5 mg tablet 12.5 mg PO TID PRN nausea and vomiting #14 tabs 02/12/22 [Rx Confirmed 03/18/22] oxycodone-acetaminophen 5 mg-325 mg tablet (Percocet) 1 tab PO Q6H PRN pain 30 days #30 tabs 03/17/22 [Rx Confirmed 03/18/22] PFSH Medical History?(Updated 03/18/22 @ 09:48 by Verona Love) Abnormal mammogram of left breast Anxiety Anxiety and depression Arthritis Asthma Blood clot in vein 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 Breast cancer, left Breast lump Breast pain, left Chest pain Chronic bronchitis CINV (chemotherapy-induced nausea and vomiting) DVT (deep venous thrombosis) Encounter for chemotherapy management Encounter for education Encounter for screening for COVID-19 Environmental allergies Fractures involving multiple body regions H/O emotional problems History of echocardiogram History of stress test Hypertension Hypokalemia Kidney stones Left shoulder pain Left thyroid nodule Non-smoker Pneumonia Pulmonary embolism URI (upper respiratory infection) Vision problems Wears dentures Wears glasses Surgical History? History of hysterectomy History of shoulder surgery History of tonsillectomy Hx of tubal ligation Family History? Father Alcoholism AsthmaMother Anxiety Blood clot in vein Myocardial infarctionGrandmother Blood clot in vein Myocardial infarctionBrother Myocardial infarctionAunt Breast cancerGrandmother CVA (cerebral vascular accident)Daughter Suicide attemptOther Colon cancer Social History? Smoking Status:? Never smoker alcohol intake:? never substance use type:? does not use caffeine:? Yes Type: carbonated beverages Number of servings: 2 what type of physical activity do you participate in:? none seatbelt use:? always do you feel safe at home:? Yes HPI HPI HPI: 76 y/o F present to discuss surgery s/p neoadjuvent chemo for left invasive ductal, ER/CA +, [id number] + breast cancer.? Pt just had her last session.? Pt can't feel any breast masses or axillary masses on exam after treatment. ROS General General: No weight change, appetite, fatigue, colon cancer, breast cancer or weakness HEENT HEENT: No difficulty swallowing, eye injury, eye surgery, swollen glands or hoarseness Endo Endocrine: No thyroid disease, diabetes mellitus, thyroid cancer, Hair loss, heat intolerance or cold intolerance Skin Skin: No rash or changing moles Breast Breast: Yes left breast lump, breast pain, abnormal mammogram and abnormal US; No right breast lump, nipple discharge or breast enlargement Musc Musculoskeletal: Yes arthritis; No back problems, rheumatoid arthritis, gout or joint pain Cardio Cardiovascular: Yes high blood pressure; No murmur, pacemaker, heart disease, atrial fibrillation, heart attack, heart stent, palpitations, shortness of breat with exertion or chest pain Psych Psychiatric: No depression, anxiety or hearing voices Resp Respiratory: No shortness of breath, No sleep apnea, No cough, No COPD, No asthma, No emphysema and No wheezing Gastro Gastrointestinal: No abdominal pain, No nausea or vomiting, No diarrhea, No constipation, No blood in stool, No acid reflux, No hemorrhoids, No ulcers, No gallbladder problem and No black,tarry stools [place] Hematologic: No blood thinners, No blood disorders, No bleeding, No anemia and Yes blood clots Neuro Neurologic: No system reviewed and no additional complaints, except as documented, No as per HPI, No abnormal gait, No abnormal hearing, No abnormal movements, No abnormal speech, No behavioral changes, No burning sensations, No confusion, No convulsions, No disequilibrium, No dizziness, No localized weakness, No frequent falls, No headache(s), No lack of coordination, No loss of vision, No memory loss, No numbness, No other visual disturbances, No radicular pain, No restless legs, No sensory deficit, No syncope, No tingling, No tremor(s), No weakness and No other Exam Const General: cooperative, healthy appearing and no acute distress [facility] Head: normal to inspection Chest Other: symmetric b/l right breast: no masses, ND Left breast: slight residual edema appearance to the skin very subtle, no obvious masses on exam in breast or axilla. Resp Effort & Inspection: normal respiratory effort Cardio Rate: regular rate GI Inspection: non-distended Palpation: soft, no guarding, no hernias and nontender Skin General: no rashes or lesions noted Neuro General: patient oriented x3 Extrem General: no clubbing, cyanosis or edema Psych Affect: normal affect Assessment and Plan Assessment and Plan (1) Breast cancer, left: ?Status:?Chronic ?Comment: Invasive ductal carcinoma L breast, vague mass with axillary node-Locally advanced, ER %, CA Positive 5-10%, Her2 3+ by IHC. Skin of L breast is thickened, no biopsy was done. PET/CT performed 11/18/2021 demonstrates no evidence of distant metastasis.? 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 Started TCHP on 12/02/2021. Echocardiogram 02/18/2022 showed EF 65% Comes for C6. Counts and chemistry are OK for therapy. ? ? ? Orders: Orders Breast Bilateral W/O and W 03/18/22 C50.912 - Malignant neoplasm of unspecified site of left female breast, N64.4 - Mastodynia ? Plan We will schedule breast MRI.? Final decision from surgery was made after MRI was reviewed. I have given the patient options for? surgical treatment. Options are the following:? mastectomy vs. mastectomy followed by immediate reconstruction. I have described the procedures to the patient. I have described the advantages and disadvantages of the options, but I have told the patient that among the options, the survival rate for breast cancer is the same.? Patient is not interested in reconstruction. I have told the patient that with all the surgeries that a sentinel lymph node biopsy is required as well as removal of the known positive previous node with clip. ? I have described the procedure of sentinel lymph node biopsy to the patient. I have told the patient that if the biopsy is positive for metastatic disease, then a full axillary lymph node dissection is required. I have told the patient that adjuvant chemotherapy will be required should the lymph nodes reveal metastatic disease. Also, a full lymph node dissection will increase the risk for lymphedema, especially if there are 4 or more lymph nodes positive for metastatic disease and radiation to the axilla is also required. I have told the patient the risks of surgery, including but not limited to: infection, bleeding, scar tissue, seroma and persistent seroma, lymph leak, injury to any blood vessels, injury to any nerves (particularly the long thoracic, the thoracodorsal, and the second intercostal brachial and the resultant sequelae), lymphedema, cosmetic deformity, dysesthesias, wound infections, further surgery (especially if margins are not clear), complications of anesthesia, etc.? the patient understands. ? Will discuss further with patient once MRI is completed.? Pt is agreeable with plan. Coding Level of Care Code Off vis,est,level 4 Diagnoses Breast cancer, left? C50.912 03/20/22 1124 <Electronically signed by Melyssa Saab MD> Date Melyssa Saab MD
[2022-04-23] MEDS: Lactated Ringers 1,000 ML 15 ML IV ×3 (08:56→13:43)
--- NOTE | 2022-04-23 09:30 | BREAST_PTH ---
PATIENT: PAUL BARONE LOC: MS3 U#:[id number] AGE/SX: 76/F ROOM: [facility] [facility] RE04/23/[address]: Dr. Melyssa Saab MD : 1945 BED: 1 DIS: 04/24/2022 SPEC #: [id number] RECD: 04/23/22 11:08 STATUS: ARSENIO DOMINGUEZFarhad #: [id number] LIONEL: 04/23/22 09:[address]: Melyssa Saab DEPT: SURGICAL PATHOLOGY RECD BY: Clarisse Moscoso ENTERED: 04/23/22 13:40 SP TYPE: BREAST OTHR DR: Dr. Michael Corcoran MD Tissues: A - Left breast, NOS B - Axillary lymph node, NOS C - Skin of breast, NOS Procedures: Surgery Specimen Level IV Surgery Specimen Level V HEADER OPERATION: Mastectomy, ultrasound-guided needle loc, axillary lymph node PRE-OP DIAGNOSIS: Left breast cancer TISSUE SUBMITTED: A - Left breast (long stitch - lateral, short stitch - superior), B - Left axillary lymph nodes and contents, C - Medial superior skin flap MICROSCOPIC DIAGNOSIS A. Left breast, mastectomy: Invasive ductal carcinoma. Ductal carcinoma in situ. See cancer summary in the comment section. B. Left axillary lymph nodes and contents, biopsy: One lymph node with macrometastasis, two lymph nodes with micrometastasis and two lymph nodes with isolated tumor cells out of 20 lymph nodes. See comment. C. Medial superior skin flap: Negative for carcinoma. SJ:rajeev 04/29/2022 COMMENT A. INVASIVE BREAST CANCER SUMMARY: Procedure ? total mastectomy Specimen laterality - left Tumor site ? upper cental quadrant Tumor size ? largest invasive carcinoma 2.5 x 1.5 x 1.5 cm. Histologic type ? invasive ductal carcinoma with focal apocrine features. Histologic Grade (Farwell grade): Glandular/tubular differentiation - score 3 Nuclear pleomorphism - score 3 Mitotic count ? score 3 Overall grade - 3 (score of 9) Tumor focality ? multiple foci of invasive carcinoma. Number of foci ? 7 Size of individual foci ? 0.1 to 2.5 cm in greatest dimension. Ductal carcinoma in situ ? present Positive for extensive intraductal component (EIC). Largest focus of ductal carcinoma in situ measures 0.5 cm. Number of blocks with DCIS ? 5 Number of blocks examined ? 19 (specimen A & C) Architectural patterns ? comedo, cystic, cribriform Nuclear grade ? grade 1-3 (low, intermediate and high) Necrosis ? not identified Lobular carcinoma in situ (LCIS) - not identified Tumor extension: Skin ? skin is present and uninvolved. Nipple ? ductal carcinoma in situ does not involve nipple epidermis. Skeletal muscle ? no skeletal muscle is present. Margins: Invasive carcinoma margin ? the tumor is 0.3 cm away from the closest superior margin and 0.5 cm away from the posterior margin. Ductal carcinoma margin ? margins are free of tumor; however, closest distance cannot be assessed as ductal carcinoma in situ is noted in the automotive leasing sales representative section away from the margin. Regional Lymph Nodes: Number of lymph nodes examined ? 10 Number of sentinel lymph nodes examined - 0 Number of lymph nodes with macrometastases - 1 Number of lymph nodes with micrometastases - 2 Number of lymph nodes with isolated tumor cells - 2 Size of largest metastatic deposit ? 0.9 x 0.7 cm (measured microscopically) Extranodal extension ? not identified Treatment effect: Treatment effect in the breast ? no definite response to presurgical therapy in invasive carcinoma. Focal changes consistent with presurgical therapy are noted in the non-neoplastic breast tissue. Treatment effect in the lymph node - no definite response to presurgical therapy in metastatic carcinoma. Lymphvascular invasion ? not identified Dermal lymphvascular invasion - not identified Additional pathologic findings ? - Intraductal hyperplasia with atypia. - Fibrocystic changes and adenosis. - Intradermal nevus (0.7 cm in greatest dimension). - Capillary hemangioma 0.3 cm in greatest dimension. - Chronic folliculitis and dermal chronic inflammation, nipple. Ancillary studies - previously performed on section of tumor ([id number] / [id number]). ER ? positive (75%, moderate to weak intensity) MO ? positive (5-10%, moderate intensity) Her2 colette ? positive (3+) Clinical history - Please make reference to previous specimen ([id number]) left breast at 11 o?clock, core biopsy with diagnosis of ?invasive ductal carcinoma? and left axillary lymph node, core biopsy with diagnosis of ?metastatic carcinoma consistent with breast primary.? PATHOLOGIC STAGE: pT2(m, y) pN1a pMx The above summary is in compliance with [employer] (CAP) Cancer Protocols Checklist and [place] Joint Committee on Cancer (AJCC), Staging Manual, 8th Ed. B. The largest focus of metastasis measures 0.9 x 0.7 cm (measured microscopically). Extranodal extension is not seen. Immunohistochemistry ([id number]) supports the above diagnosis. MICROSCOPIC DESCRIPTION Slides are reviewed. GROSS DESCRIPTION A - Received in fixative is one container labeled with the patient's name and designated left breast (long stitch - lateral, short stitch - superior). The specimen consists of a mastectomy specimen consisting of breast tissue with overlying skin ellipse. The breast measures 23 x 17 x 6 cm. The overlying skin ellipse measures 21 x 13 cm. The nipple measures 1 cm in greatest dimension. The skin surface shows a raised eric lesion superiorly measuring 0.7 cm in greatest dimension. A reddish-pink lesion is also noted measuring 0.3 cm in greatest dimension. The specimen is inked as follows: posterior - black, superior - blue, inferior - green, medial - red and lateral - orange. More dictation will follow after fixation. / SJ:rajeev 04/23/2022 Serial sections reveal a eric, indurated mass in the upper central portion of the specimen measuring 2.5 x 1.5 x 1.5 cm. A clip is also noted in the central portion of the tumor. This tumor mass is very close to the superior margin of the specimen and 0.2 cm away from posterior margin of the specimen. Sections of the rest of the specimen reveal eric-yellow adipose cut surfaces mixed with eric-white fibrous areas. Gas Appliance Installer sections are submitted in 16 cassettes as follows: 1 - skin lesions x2, larger lesion is bisected, 2 - nipple, entirely submitted, 3 - perpendicular medial, lateral and inferior margins and skin, 47??tumor with closest superior and posterior margins, entirely submitted, 8-16 - Gas Appliance Installer sections adjacent to and away from the tumor. Sections will be submitted after additional fixation. / SJ:rajeev 04/26/2022 B - Received fresh and fixed in formalin labeled with the patient's name is a specimen designated left axillary lymph nodes and contents. The specimen consists of a piece of adipose tissue with needle localization measuring 15 x 6 x 2.5 cm. Multiple lymph nodes are identified. The largest lymph node measures 2.5 cm in greatest dimension. The lymph nodes are submitted in entirety. Gas Appliance Installer sections are submitted in ten cassettes as follows: 1 & 2 - one serially sectioned lymph node, largest lymph node, 3 & 4 - one serially sectioned lymph node, second largest lymph node, 5 - one serially sectioned lymph node, 6 - one bisected lymph node, 7??one bisected lymph node, 8-10 - each cassette containing multiple lymph nodes. Sections will be submitted after additional fixation. / SJ:rajeev 04/26/2022 C - Received in fixative is one container labeled with the patient's name and designated medial superior skin flap. The specimen consists of a piece of eric-white skin ellipse with underlying tissue measuring 4 x 1 cm and up to 2.5 cm in thickness. The specimen shows two sutures, one short and one longer, and presumed to be short - superior, long - lateral. The specimen is inked as follows: superior surface - blue, inferior - green, medial - red and lateral - orange. No skin lesion is identified. The entire specimen is submitted in three cassettes. Sections will be submitted after additional fixation. / SJ:rajeev 04/26/2022 TC:0 CPT: 85673 x2, [id number]
[2022-04-23] MEDS: Clindamycin 900 MG/50 ML BAG 75 MG IV (09:45)
--- NOTE | 2022-04-23 12:10 | BI_ITS ---
SURGICAL BREAST SPECIMEN RADIOGRAPH CLINICAL: Document presence of mass in biopsy specimen. FINDINGS: Specimen shows presence of mass. Electronically Signed: Augustin Ruiz MD at 12:38 EST , BI/Breast Biopsy Specimen IMPRESSION: undefined
--- NOTE | 2022-04-23 12:33 | PCM.OPRPT ---
Report of Operation Date of Procedure: 04/23/22 Pre-Operative Diagnosis: Inflammatory left breast cancer Post-Operative Diagnosis: Same Surgery/Procedure Performed:: Left modified radical mastectomy with axillary lymph node dissection, left ultrasound-guided axillary lymph node localization Surgeon: Melyssa Saab tomahawk weapon system operator: Rena Barnes Type of Anesthesia: General/Supplemental Anesthesiologist: Alexey Gandhi Special Medications: Ancef 2 g IV x1 Specimen's removed: 1. Left mastectomy, 2. Left axillary node contents, 3. Superior medial skin flap Drains: GABRIEL 15 Amharic round drains x2 Estimated Blood Loss (mL): 20 cc Fluids Replaced: Per anesthesia Description of Procedure: Synoptic Portion: Element Response Options Operation performed with curative intent. Yes Resection was performed within the boundaries of the axillary vein, chest wall (serratus anterior), and latissimus dorsi. Yes Nerves identified and preserved during dissection (select all that apply) Long thoracic nerve; Thoracodorsal nerve; Branches of the intercostobrachial nerves Level III nodes were removed. No Description of procedure Patient did have nuclear nuclear tracer however last-minute change of surgery did decide to start with axillary lymph node dissection as she did have inflammatory breast cancer. The patient was taken to the operating room and general anesthesia was induced. The left breast and axilla were prepped and draped in usual sterile fashion. A timeout was completed verifying correct patient, procedure, site, positioning, special equipment prior to beginning procedure. Ultrasound was use for localization of the clipped axillary node using the Kopan's needle. Skin incision was made that encompassed the nipple areolar complex and the previous biopsy scar in past and generally oblique direction across the breast. Flaps are raised in the avascular plane between the prescription he continues tissues in the breast tissue from the clavicle superiorly, the sternum medially, the anterior rectus sheath inferiorly, and posterolateral border of the pectoralis major muscle laterally. Hemostasis was achieved in the flaps. Next, the breast tissue and underlying pectoralis fascia were excised from the pectoralis major muscle, progressing from medial to laterally. At the lateral border of the pectoralis major muscle, the breast tissue was swung laterally and the lateral pedicle identified with the breast tissue gave way to the fat of the axilla. The lateral pedicle was incised and the specimen removed and oriented for pathology. The wound was irrigated and hemostasis was achieved. The borders of the axillary vein, latissimus dorsi, serratus anterior are identified. The intercostobrachial, long thoracic and thoracodorsal nerves are also identified and protected throughout the dissection. All the nodes within these borders along with the positive lymph node are removed and sent to pathology. The specimen was oriented and sent to radiology to verify clip node. Clip node was confirmed. The cavities were irrigated. Hemostasis was checked. Closed suction drains were brought into the operating field through a separate stab incision and sutured to skin with 3-0 nylon suture. The incision was closed with interrupted 2-0 Vicryl to the simultaneously followed by a subcuticular layer of 4-0 Monocryl and Steri-Strips. The wound was dressed and Lowell wrap placed. The patient tolerated procedure well was taken to the postanesthesia care in stable condition. Complications none
[2022-04-23] MEDS: Bupiv/Epi 0.5% Mpf 30 ML Vial (13:00)
[2022-04-23] MEDS: Acetaminophen 325 MG Tablet 650 MG PO ×2 (16:08→22:03)
[2022-04-23] MEDS: Lactated Ringers 1,000 ML 110 ML IV (16:22)
[2022-04-23] MEDS: Ensure Plus High Protein 120 ML LIQUID PO (21:50)
[2022-04-24] MEDS: Lactated Ringers 1,000 ML 110 ML IV (01:19)
[2022-04-24 01:34] VITALS: BP 113/46; PULSE 71; RESP 16; TEMP 36.8; O2SAT 93
[2022-04-24 01:35] VITALS: BMI 32.2
[2022-04-24 06:31] VITALS: BP 113/50; PULSE 66; RESP 18; TEMP 36.8; O2SAT 96
[2022-04-24 06:33] VITALS: BMI 32.2
[2022-04-24] MEDS: Acetaminophen 325 MG Tablet 650 MG PO (06:34)
[2022-04-24 07:17] LABS: Absolute Lymphocyte Count 1.64 X10^3/uL (0.83-4.51); Basophil# 0.02 X10^3/uL; Basophil% 0.3 % (0-1); Eosinophils% 1.5 % (0-5); Hematocrit 30.1 % (37-47); Hemoglobin 9.5 g/dL (12.0-15.0); Lymphocyte # 1.64 X10^3/ul (0.83-4.51); Lymphocyte % 25.4 % (19-41); Mean Corp Hgb Conc 31.6 g/dL (32-36); Mean Corpuscular Hgb 30.9 pg (27.0-32.0); Mean Platelet Vol. 10.5 fl (6.2-12.0); Monocyte# 0.69 X10^3/uL; Monocyte% 10.7 % (0-10); NRBC Flagged by Analyzer 0 % (0-5); Neutrophil # 3.98 X10^3/uL (2.7-7.7); Neutrophil % 61.6 % (47-70); Platelet Count 121 K/mm3 (150-450); RBC Distribution Width CV 14.2 % (11.6-14.6); RBC Distribution Width SD 50.9 fl (35.1-43.9); Red Blood Count 3.07 M/mm3 (4.2-5.4); White Blood Count 6.5 K/mm3 (4.4-11.0)
[2022-04-24 07:35] LABS: Anion Gap 7 (5-15); BUN 23 mg/dL (7-18); BUN/Creat Ratio 21.7 RATIO (10-20); Calcium,Total 8.1 mg/dL (8.5-10.1); Chloride 108 mmol/L (98-107); Creatinine, Serum 1.06 mg/dL (0.55-1.02); EST Glomerular Filtration Rate 54 mL/min (>60); Est Glom Filt Rate - Afr Amer 65 mL/min (>60); Estimated Creatinine Clearance 37.93 ml/min; Glucose 114 mg/dL (74-106); Potassium 3.7 mmol/L (3.5-5.1); Sodium Level 141 mmol/L (136-145)
--- NOTE | 2022-04-24 08:10 | PN.SURG_ITS ---
Subjective Subjective Patient denies any pain. Does have movement numbness in the medial arm. Hemoglobin stable. GABRIEL sanguinous/serous Objective Data Objective Data Vital Signs: Vital Signs Temp Pulse Resp BP Pulse Ox O2 Del Method O2 Flow Rate 98.2 F 66 18 113/50 L 96 Room Air 2 04/24/22 06:31 04/24/22 06:31 04/24/22 06:31 04/24/22 06:31 04/24/22 06:31 04/24/22 06:31 04/23/22 21:46 Oxygen Flow Rate (L/min) 2 Oxygen Delivery Method Room Air Weight: 181 lb 14.102 oz Body Mass Index (BMI) 32.2 Intake & Output: Intake and Output for Last 24 Hours 04/22/22 04/23/22 04/24/22 23:59 23:59 23:59 Intake Total 1133.50 / 1633.50 1484.5 / 1484.5 Output Total 50 / 150 100 / 100 Balance 1083.50 / 1483.50 1384.5 / 1384.5 Lab / Micro Data Result Diagrams: 04/24/22 06:55 04/24/22 06:55 Labs: Laboratory Results - last 24 hr 04/24/22 06:55: WBC 6.5, RBC 3.07 L, Hgb 9.5 L, Hct 30.1 L, MCV 98.0, MCH 30.9, MCHC 31.6 L, RDW Std Deviation 50.9 H, RDW Coeff of Nevin 14.2, Plt Count 121 L, MPV 10.5, Immature Gran % (Auto) 0.500, Neut % (Auto) 61.6, Lymph % (Auto) 25.4, [place] % (Auto) 10.7 H, Eos % (Auto) 1.5, Baso % (Auto) 0.3, Absolute Neuts (auto) 4.0, Absolute Lymphs (auto) 1.64, Nucleated RBC % 0 04/24/22 06:55: Sodium 141, Potassium 3.7, Chloride 108 H, Carbon Dioxide 26.0, Anion Gap 7, BUN 23 H, Creatinine 1.06 H, Estim Creat Clear Calc 37.93, Est GFR (MDRD) Af Amer 65, Est GFR (MDRD) Non-Af 54 L, BUN/Creatinine Ratio 21.7 H, Glucose 114 H, Calcium 8.1 L Radiography Diagnostic Testing: Radiology Impression [place] Node 04/23/22 07:41 IMPRESSION: Subcutaneous injection of 1.1 mCi of technetium labeled sulfur colloid in 4 equal aliquots in the periareolar region of the left breast. Electronically Signed: Augustin Ruiz MD at 8:57 EST , Breast Biopsy 04/23/22 12:10 IMPRESSION: undefined Physical Exam Narrative Left mastectomy incision healing well clean dry and intact, GABRIEL x2 sangui nous/serous Const oriented x3 and no apparent distress Resp normal respiratory effort Cardio regular rate Extremity Extremity Narrative: Left upper extremity does have some swelling Assessment & Plan Assessment/Plan (1) S/P left mastectomy: (2) History of lymph node dissection of axilla: (3) Breast cancer, left: (4) Lymphedema: (5) Pulmonary emboli: PLAN: Plan Patient hemoglobin stable. Tolerating diet denies any pain will DC home. hold eliquis; start lovenox 120 mg SQ daily due to GABRIEL drains and will start back on eliquis when drains removed.
[2022-04-24 08:11] VITALS: BP 112/48; PULSE 62; RESP 18; TEMP 36.7; O2SAT 95
[2022-04-24 08:21] VITALS: RESP 18; O2SAT 95
--- NOTE | 2022-04-24 08:34 | DCINST_ITS ---
Discharge Instructions Procedure Breast Surgery Diet Discharge Diet: No restrictions Activity Discharge Activity: May Not Drive (while taking narcotic pain meds.) and May Not Shower (Okay to lower shower but do not get the area of the JPs wet.) May shower in (days): 1 Lifting Restrictions: 10 pounds for 2 weeks on the right Dressing / Incision Call your doctor if your incision/area has: Continuous Slow Oozing, Sudden Increased Bleeding, Increased Pain/ Swelling and Increased Redness Call your doctor if you observe: Fever of 101 or Higher Suture Line Care: Avoid Pulling/Pushing Remove Dressing in: 1 day (bulky dressing--change and replace ABD pads/ RENEE Wrap) Additional Dressing/Incision Instructions:: Remove bulky dressing tomorrow. ok to remove RENEE Wrap for redressing but replace RENEE wrap after--ok to place ABD or small towel at incision and then wrap with RENEE Wrap Follow Up Care Please Follow Up With: Melyssa Saab MD When: Please call [phone] for an appointment to be seen early next week for GABRIEL removal---hold lovenox that AM of office appt. Bring GABRIEL log to office with you & hold lovenox that day Test Results: Test results from this visit will be discussed in further detail at your follow- up appointment, if applicable. Discharge Plan Admission Admit Date/Time: 04/23/22 12:58 Attending Provider: Melyssa Saab Primary Care Provider: Michael Corcoran Instructions Additional Instructions / Restrictions: We will give Lovenox daily (therapeutic dose) to replace the Eliquis while the drains are in place. We will have you hold that Lovenox on the day we are planning to pull the drain. So hold lovenox on the day of the first office appt. Discharge Orders/Prescriptions Prescriptions: New oxycodone-acetaminophen 5-325 mg tablet 1 tab PO Q6H PRN (Reason: pain) 3 Days Qty: 15 0RF enoxaparin [Lovenox] 120 mg/0.8 mL syringe 120 mg subcut DAILY Qty: 8 1RF Continued amlodipine 5 mg tablet 7.5 mg PO DAILY 90 Days Qty: 135 2RF paroxetine HCl [Paxil] 20 mg tablet 20 mg PO DAILY Qty: 90 3RF lidocaine-prilocaine 2.5-2.5 % cream 1 applic topical ONCE PRN (Reason: port access) 30 Days Qty: 30 2RF prochlorperazine maleate 10 mg tablet 10 mg PO Q6H PRN (Reason: nausea and vomiting) Qty: 30 2RF ondansetron 8 mg tablet,disintegrating 8 mg PO Q8H PRN (Reason: nausea and vomiting) Qty: 30 2RF albuterol sulfate [Ventolin HFA] 90 mcg/actuation HFA aerosol inhaler 1 - 2 puff inhalation Q4H PRN PRN (Reason: Wheezing) Qty: 1 0RF Rx Instructions: may substitute for different brand of albuterol if needed nystatin 100,000 unit/gram ointment 1 applic topical BID Qty: 30 2RF promethazine 12.5 mg tablet 12.5 mg PO TID PRN (Reason: nausea and vomiting) Qty: 14 0RF Rx Instructions: 3 doses during day; last dose no later than 4 hr before bedtime Held Eliquis 5 mg tablet 5 mg PO BID Qty: 60 2RF Hold Instructions: Away until JPs are removed we will have Lovenox once a day instead which will be a therapeutic dose Referrals / Follow Up: Michael Corcoran MD [Primary Care Provider] - Disposition Disposition (needs filled in before D/C Order can be placed): Home, Self Care
[2022-04-24] MEDS: amLODIPine 2.5 MG Tablet 7.5 MG PO (10:28)
[2022-04-24] MEDS: Paroxetine 20 MG Tablet PO (10:28)
--- NOTE | 2022-04-24 10:45 | CASEMGMT ---
WELLINGTON SUTHERLAND made aware by charge nurse that pt lovenox is approx $96. WELLINGTON SUTHERLAND in to pt room, pt states lovenox is affordable to her. 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 Pt denies any homegoing concerns.
[2022-04-24] MEDS: Enoxaparin 120 MG/0.8 ML Syringe SC (10:56)
[2022-04-24] MEDS: 0.9% Saline Lock 10 ML Syringe IV (11:10)
[2022-04-24 11:13] VITALS: BP 112/48; PULSE 62; RESP 18; TEMP 36.7; O2SAT 96
[2022-04-24 11:19] VITALS: BMI 32.2
== END 2022-04-24 11:51 | disposition home or self-care (01) ==
LOC: SDC 15:06 → MS3 15:06
PROVIDERS: Admitting Provider Surgery; PCP Internal Medicine; Referring Provider Surgery; Visit Provider Surgery
PROC: (CPT 19307; principal; 2022-04-23 09:15)
DX: C50.912 Malignant neoplasm of unspecified site of left female breast (principal); I89.0 Lymphedema, not elsewhere classified; Z17.0 Estrogen receptor positive status [ER+]; Z79.899 Other long term (current) drug therapy; Z79.01 Long term (current) use of anticoagulants; Z86.711 Personal history of pulmonary embolism; Z86.718 Personal history of other venous thrombosis and embolism; I10 Essential (primary) hypertension; M19.90 Unspecified osteoarthritis, unspecified site; F32.A Depression, unspecified; F41.9 Anxiety disorder, unspecified
CPT/HCPCS: 19307; 36415; 38792; 76098; 80048; 85025; 88305; 88307; 88341; 88342; 96360; 96361; 96372; 99221; 99252; A9541; J7120; A4216; G0378; G0463; J2405

== ENCOUNTER → 2022-06-10 | Outpatient (CLI) | payer MEDICARE, SELFPAY ==
--- NOTE | 2022-06-10 08:44 | BD_ITS ---
STUDY: DUAL ENERGY X-RAY ABSORPTIOMETRY / DXA REASON FOR EXAM: Female, 76 years old. OSTEOPENIA TECHNIQUE: Bone Mineral Density (BMD) measurements of lumbar spine and bilateral hips were obtained. COMPARISON: Comparison is made with prior study dated 10/04/2019. FINDINGS: Lumbar Spine (L1-L4): g/cm2 (0.821) / T-score (-2.1) / Z-score (0.4) Findings are suggestive of osteopenia with a high fracture risk. Left Femur Total: g/cm2 (0.704) / T-score (-2.0) / Z-score (-0.1) Left Femoral Neck: g/cm2 (0.615) / T-score (-2.1) / Z-score (0.0) Right Femur Total: g/cm2 (0.758) / T-score (-1.5) / Z-score (0.3) Right Femoral Neck: g/cm2 (0.608) / T-score (-2.2) / Z-score (-0.1) The T-Scores on the most recent prior examination were: Lumbar Spine (L1-L4): There has been worsening of bone density since the previous examination. Left Femur Total: which represents a worsening of 13.7%. Right Femur Total: which represents a worsening of 6.6%. BD/Dexa Bone Density Study IMPRESSION: The patient is considered osteopenic as outlined below according to World [employer] Organization (WHO) criteria with a high fracture risk. There has been worsening of bone density since the previous examination. Reference Information: The T-score is the number of standard deviations above or below the standard which is normal for young adults at their peak bone mineral density. The World Health Organization (WHO) interprets the T-scores as follows: Above -1 Normal bone density Between -1 and -2.5 Osteopenia Equal to / or below -2.5 Osteoporosis As a practical clinical guideline, osteopenia may be graded as follows: Mild -1 through -1.5 Moderate -1.6 through -2.0 Severe -2.1 through -2.4 The Z-score is the number of standard deviations above or below age-matched controls. A Z-score of less than -1.5 would be considered abnormal. References: 1. NIH Osteoporosis and Related Bone Diseases www osteo.org 2. International Society for Clinical Densitometry www iscd.org 3. National Osteoporosis Foundation www nof.org Electronically Signed: Augustin Ruiz MD at 15:21 EST ,
--- NOTE | 2022-06-10 13:07 | ECHOLONC_ITS ---
Reason For Study: High Risk Meds Procedure This was a limited 2D transthoracic echocardiogram. Myocardial strain analysis was performed in this exam to aid in the assessment of cardiac function. Exam performed in department. Left Ventricle Normal LV size. Left ventricular systolic function is normal. The estimated ejection fraction is 65 %. No regional wall motion abnormalities noted. Right Ventricle Normal RV size. Normal systolic function. Atria Normal left atrium. Normal right atrium. Mitral Valve Normal mitral valve. Tricuspid Valve Normal tricuspid valve. Aortic Valve Normal aortic valve. Pulmonic Valve Normal pulmonic valve. Great Vessels Normal aortic root. The pulmonary artery is normal size. Normal inferior vena cava. Pericardium/Pleural No pericardial effusion. MMode/2D Measurements & Calculations LVIDd: 5.2 cm IVSd: 0.96 cm Ao root diam: 3.4 cm LVIDs: 3.3 cm LVPWd: 1.1 cm LA dimension: 3.8 cm RVDd: 3.0 cm FS: 36.0 % LAV(MOD-sp4): 32.0 ml LVAd ap4: 21.9 cm2 SV(MOD-sp4): 37.1 ml LVLd ap4: 7.3 cm EDV(MOD-sp4): 55.2 ml EDV(sp4-el): 55.9 ml LVAs ap4: 10.6 cm2 LVLs ap4: 5.3 cm ESV(MOD-sp4): 18.1 ml ESV(sp4-el): 17.7 ml EF(MOD-sp4): 67.2 % EF(sp4-el): 68.3 % SV(sp4-el): 38.2 ml LA A4 area: 13.3 cm2 RA A4 area: 12.5 cm2 Time Measurements MV dec time: 0.34 sec Doppler Measurements & Calculations MV E max chance: 58.1 cm/sec Lat Peak E' Chance: 10.6 cm/sec Med Peak E' Chance: 11.0 cm/sec MV A max chance: 81.7 cm/sec E/E' lat: 5.5 E/E' med: 5.3 MV E/A: 0.71 MV dec slope: 172.9 cm/sec2 ECHO/ONC Echo, Limited Study Interpretation Summary Normal LV size. Left ventricular systolic function is normal. The estimated ejection fraction is 65 %. Structurally normal valves. The global longitudinal strain is normal. The globa l longitudinal strain = -19.5 % (normal). Ordering Physician: Haresh Saenz Referring Physician: Michael Corcoran Performed By: Sunil Galvan RCS
== END | disposition home or self-care (01) ==
PROVIDERS: PCP Internal Medicine; Referring Provider Internal Medicine Medical Oncology; Visit Provider Internal Medicine Medical Oncology
DX: C50.912 Malignant neoplasm of unspecified site of left female breast (principal); Z09 Encounter for follow-up examination after completed treatment for conditions other than malignant neoplasm; M85.80 Other specified disorders of bone density and structure, unspecified site; Z78.0 Asymptomatic menopausal state; Z13.820 Encounter for screening for osteoporosis; Z79.899 Other long term (current) drug therapy
CPT/HCPCS: 77080; 93308; 93356; J1756; J7050; A4216

== ENCOUNTER → 2022-09-08 | Outpatient (CLI) | payer MEDICARE, SELFPAY ==
--- NOTE | 2022-09-08 10:56 | ECHOCSONC_ITS ---
Reason For Study: CHEMOTHERAPY Procedure This was a 2D Doppler, Color Flow transthoracic echocardiogram. Myocardial strain analysis was performed in this exam to aid in the assessment of cardiac function. Exam performed in department. Left Ventricle Normal LV size. Left ventricular systolic function is normal. The estimated ejection fraction is 55 %. No regional wall motion abnormalities noted. Right Ventricle Normal RV size. Normal systolic function. Atria Normal left atrium. Normal right atrium. Mitral Valve Normal mitral valve. Tricuspid Valve Normal tricuspid valve. Aortic Valve Normal aortic valve. Trisinus/trileaflet aortic valve. Pulmonic Valve Normal pulmonic valve. Great Vessels Normal aortic root. The pulmonary artery is normal size. Normal inferior vena cava. Pericardium/Pleural No pericardial effusion. MMode/2D Measurements & Calculations LVIDd: 3.2 cm IVSd: 1.4 cm LVOT diam: 2.0 cm LVIDs: 1.9 cm LVPWd: 0.87 cm LVOT area: 3.2 cm2 RVDd: 3.1 cm FS: 41.3 % Ao root diam: 3.9 cm LAV(MOD-bp): 26.5 ml LVAd ap4: 23.3 cm2 LAV(MOD-bp) Indexed: 14.6 ml/m2 LVLd ap4: 7.9 cm LAV(MOD-sp2): 31.1 ml EDV(MOD-sp4): 56.9 ml LAV(MOD-sp4): 22.9 ml EDV(sp4-el): 58.4 ml LVAs ap4: 11.8 cm2 LVLs ap4: 6.3 cm ESV(MOD-sp4): 18.8 ml ESV(sp4-el): 18.7 ml EF(MOD-sp4): 66.9 % EF(sp4-el): 68.0 % LVAd ap2: 18.3 cm2 SV(MOD-sp4): 38.1 ml SV(MOD-sp2): 24.8 ml LVLd ap2: 7.3 cm EDV(MOD-sp2): 39.0 ml EDV(sp2-el): 38.7 ml LVAs ap2: 9.6 cm2 LVLs ap2: 5.6 cm ESV(MOD-sp2): 14.2 ml ESV(sp2-el): 14.0 ml EF(MOD-sp2): 63.7 % SV(sp4-el): 39.7 ml LA dimension(2D): 3.2 cm LA A4 area: 11.0 cm2 RA A4 area: 10.9 cm2 Time Measurements MV dec time: 0.25 sec Doppler Measurements & Calculations MV E max chance: 62.7 cm/sec Lat Peak E' Chance: 10.1 cm/sec Med Peak E' Chance: 6.5 cm/sec MV A max chance: 96.7 cm/sec E/E' lat: 6.2 E/E' med: 9.7 MV E/A: 0.65 Ao V2 max: 130.0 cm/sec LV V1 max: 95.7 cm/sec MV dec slope: 253.7 cm/sec2 Ao max P.8 mmHg LV V1 max P.7 mmHg MANDA(V,D): 2.3 cm2 PA V2 max: 98.9 cm/sec PI end-d chance: 108.6 cm/sec TR max chance: 207.1 cm/sec PA max PG (full): 1.8 mmHg TR max P.2 mmHg ECHO/ONC Echo Complete W/ Contrast Interpretation Summary Normal LV size. Left ventricular systolic function is normal. The estimated ejection fraction is 55 %. The global longitudinal strain is normal. The global longitudinal strain = -17. 4 % (normal). Ordering Physician: Miriam Meraz Referring Physician: Michael Corcoran Performed By: Noreen Sotomayor RDCS
== END | disposition home or self-care (01) ==
LOC: CVS 10:55
PROVIDERS: PCP Internal Medicine; Referring Provider Nurse Practitioner Family; Visit Provider Nurse Practitioner Family
DX: I26.99 Other pulmonary embolism without acute cor pulmonale (principal); Z51.81 Encounter for therapeutic drug level monitoring; Z79.899 Other long term (current) drug therapy
CPT/HCPCS: 93306; 93356; C8929

== ENCOUNTER → 2022-12-23 | Outpatient (CLI) | payer MEDICARE, SELFPAY ==
--- NOTE | 2022-12-23 12:43 | ECHOLONC_ITS ---
Reason For Study: Cardio Toxic Meds Procedure This was a limited 2D transthoracic echocardiogram. Myocardial strain analysis was performed in this exam to aid in the assessment of cardiac function. Exam performed in department. Left Ventricle Normal LV size. Left ventricular systolic function is normal. The estimated ejection fraction is 60 %. No regional wall motion abnormalities noted. Right Ventricle Normal RV size. Normal systolic function. Atria Normal left atrium. Normal right atrium. Mitral Valve Normal mitral valve. Tricuspid Valve Normal tricuspid valve. Aortic Valve Normal aortic valve. Trisinus/trileaflet aortic valve. Pulmonic Valve Normal pulmonic valve. Great Vessels Normal aortic root. Pericardium/Pleural No pericardial effusion. MMode/2D Measurements & Calculations LVIDd: 4.5 cm IVSd: 1.2 cm LAV(MOD-bp): 53.9 ml LVIDs: 3.2 cm LVPWd: 0.98 cm LAV(MOD-bp) Indexed: 29.1 ml/m2 FS: 30.4 % LAV(MOD-sp2): 42.5 ml LAV(MOD-sp4): 65.1 ml SV(MOD-sp4): 27.0 ml SV(sp4-el): 28.5 ml LVAd ap4: 19.9 cm2 LVLd ap4: 7.1 cm EDV(MOD-sp4): 45.2 ml EDV(sp4-el): 47.4 ml LVAs ap4: 10.9 cm2 LVLs ap4: 5.3 cm ESV(MOD-sp4): 18.2 ml ESV(sp4-el): 18.9 ml EF(MOD-sp4): 59.7 % EF(sp4-el): 60.2 % LA A4 area: 21.8 cm2 RA A4 area: 14.2 cm2 Doppler Measurements & Calculations Lat Peak E' Chance: 10.8 cm/sec Med Peak E' Chance: 5.3 cm/sec PA V2 max: 83.7 cm/sec PI end-d chance: 95.9 cm/sec ECHO/ONC Echo, Limited Study Interpretation Summary Normal LV size. Left ventricular systolic function is normal. The estimated ejection fraction is 60 %. The global longitudinal strain is normal. The global longitudinal strain = -18. 9 % (normal). Ordering Physician: Veronica Schrader Referring Physician: Michael Corcoran Performed By: Sunil Galvan RCS
== END | disposition home or self-care (01) ==
LOC: CVS 12:42
PROVIDERS: PCP Internal Medicine; Visit Provider Internal Medicine Medical Oncology
DX: C50.912 Malignant neoplasm of unspecified site of left female breast (principal); Z79.899 Other long term (current) drug therapy
CPT/HCPCS: 93308; 93356

== ENCOUNTER → 2023-01-10 | Outpatient (CLI) | payer MEDICARE, SELFPAY ==
--- NOTE | 2023-01-10 12:10 | BI_ITS ---
MAMMOGRAPHY - UNILATERAL SCREENING: RIGHT BREAST REASON FOR EXAM: Female, 77 years old. Routine annual screening examination (unilateral). PERTINENT HISTORY: Personal history of breast cancer. Prior left mastectomy with chemotherapy. TECHNIQUE: Digital unilateral breast phani (3D mammographic acquisition) in the CC and MLO projections. 2-D mediolateral oblique (MLO) and craniocaudad (CC) views of both breasts were obtained. CAD: Full Field Digital Mammography with Computer Added Detection was performed. COMPARISON: Comparison is made with prior study dated 02/10/2023 and October 05, 2021. FINDINGS: Breast Composition: The breasts are heterogeneously dense, which may obscure small masses. There are no dominant masses or suspicious calcifications. The previously seen oval density in the posterior retroareolar region of the right breast is almost completely resolved. No other significant abnormalities are identified. There has been no significant change since the prior study. BI/SCREEN MAMM (CAD) W/PHANI UNI R IMPRESSION: Stable unilateral screening mammogram. Yearly follow-up mammogram recommended. (A) ASSESSMENT CATEGORY: BIRADS Category 2: Benign. A letter regarding these results will be sent to the patient by the facility within 30 days. Approximately 10% of breast cancers are not detected by mammography. A normal mammogram should not delay biopsy of a clinically suspicious abnormality. [id number] Electronically Signed: Augustin Ruiz MD at 13:59 EDT ,
== END | disposition home or self-care (01) ==
LOC: OPBI 12:09
PROVIDERS: PCP Internal Medicine; Referring Provider Nurse Practitioner Family; Visit Provider Nurse Practitioner Family
DX: Z12.31 Encounter for screening mammogram for malignant neoplasm of breast (principal); Z85.3 Personal history of malignant neoplasm of breast
CPT/HCPCS: 77063; 77067

== ENCOUNTER → 2023-04-28 | Outpatient (CLI) | payer MEDICARE, SELFPAY ==
--- OUTSIDE RECORDS SUMMARY | 2023-04-28 14:42 | XMS RPT_ITS | CCD ---
Author Name Unknown Address [address] [place] [address] Organization [facility] Care Team Providers Care [employer] Name Role Phone HEATH CONNER Unavailable Unavailable HEATH CONNER Unavailable Unavailable Allergies Allergy Classification Reported Allergen(s) Allergy Type Date of Onset Reaction(s) Facility (1 source) penicillin; Translations: [PENICILLIN] Drug Allergy 08-10-2016 [facility] Repository Problems Problem Classification Problem Date Documented Da te Episodic/Chronic Unclassified (1 source) Unknown / UNK(Unknown) Onset: 08-30-2016 Encounters Encounter Date Encounter Type Care Provider Facility Start: 08-30-2016 End: 08-30-2016 Ambulatory HEATH CONNER [facility] Summary Purpose Family History No Family History Records Found Advance Directives No Advanced Directives Records Found Additional Source Comments INFORMATION SOURCE (unrecogn ized section and content) FOR RECORDS PERTAINING TO PATIENTS WHO ARE OR HAVE BEEN ENROLLED IN A CHEMICAL DEPENDENCY/SUBSTANCEABUSE PROGRAM, SOME INFORMATION MAY BE OMITTED. This clinical summary was aggregated from multiple sources. Caution should be exercised in using it in the provision of clinical care. This summary normalizes information from multiple sources, and as a consequence, information in this document may materially change the coding, format and clinical context of patient data. In addition, data may be omitted in some cases. CLINICAL DECISIONS SHOULD BE BASED ON THE PRIMARY CLINICAL RECORDS. [employer] provides no warranty or guarantee of the accuracy or completeness of information in this document.
[2023-04-28 16:41] LABS: Cholesterol 238 mg/dL (200); High Density Lipoprotein 49 mg/dL; Triglycerides 232 mg/dL; Very Low Density Lipoprotein 46 mg/dL (5-40)
[2023-04-28 17:04] LABS: Vitamin D,25 Hydroxy 22.2 ng/mL
== END | disposition home or self-care (01) ==
LOC: BIMLAB 14:20
PROVIDERS: PCP Internal Medicine; Referring Provider Internal Medicine; Visit Provider Internal Medicine
DX: I10 Essential (primary) hypertension (principal); M85.80 Other specified disorders of bone density and structure, unspecified site
CPT/HCPCS: 36415; 80061; 82306

== ENCOUNTER 2023-06-01 06:38 | Day surgery (SDC) | payer MEDICARE, SELFPAY ==
--- OUTSIDE RECORDS SUMMARY | 2023-06-01 06:43 | XMS RPT_ITS | CCD ---
Author Name Unknown Address [address] [place] [address] Organization [facility] Care Team Providers Care [employer] Name Role Phone HEATH CONNER Unavailable Unavailable HEATH CONNER Unavailable Unavailable Allergies Allergy Classification Reported Allergen(s) Allergy Type Date of Onset Reaction(s) Facility (1 source) penicillin; Translations: [PENICILLIN] Drug Allergy 08-10-[address] [facility] Repository Problems Problem Classification Problem Date Documented Da te Episodic/Chronic Unclassified (1 source) Unknown / UNK(Unknown) Onset: 08-30-2016 Encounters Encounter Date Encounter Type Care Provider Facility Start: 08-30-2016 End: 08-30-2016 Ambulatory HEATH CONNER [facility] Summary Purpose Family History No Family History [...] BE BASED ON THE PRIMARY CLINICAL RECORDS. [employer] provides no warranty or guarantee of the accuracy or completeness of information in this document.
[2023-06-01 06:59] VITALS: BP 98/68; PULSE 59; RESP 16; TEMP 36.4; O2SAT 99; BMI 37.9
[2023-06-01] MEDS: Lactated Ringers 1,000 ML 15 ML IV (07:04)
--- NOTE | 2023-06-01 07:21 | HP.PCM_ITS ---
History and Physical Date of Admission: 06/01/23 Date of Service: 05/09/23 MR#: [id number] Acct: [id number] Name: PAUL BARONE Rep #: [id number] : 1945 Provider: Dr. Melyssa Saab MD Age/Sex: 77/F [facility] Status: Signed Intake Vital Signs 04/28/2412:52 05/09/2408:59 Height 5 ft 1 in Weight: 201 lb 202 lb BMI 38.0 BP 118/70 122/78 H Blood Pressure Location Lt brachial Rt brachial Position Sitting Sitting Respiration 14 17 Pulse 73 68 Pulse Source Monitor Monitor Temp 97.1 F L 97.2 F L Temp Source Temporal Temporal Pulse Oximetry (%) 97 97 Oxygen Delivery Method room air room air Intake Visit Reasons: Colonoscopy Chief Complaint: colonoscopy Is patient in pain?: No Allergies Penicillins Allergy (Verified 05/09/23 10:00) Hives Medications albuterol sulfate 90 mcg/actuation aerosol inhaler (Ventolin HFA) 1 - 2 puff inhalation Q4H PRN PRN Wheezing ##1 12/06/21 [Rx Confirmed 05/09/23] multivitamin 1 tab PO DAILY 07/15/22 [History Confirmed 05/09/23] loratadine 10 mg tablet (Claritin) 10 mg PO DAILY 08/26/22 [History Confirmed 05/09/23] biotin 1 mg capsule 1 mg PO DAILY 10/29/22 [History Confirmed 05/09/23] lidocaine-prilocaine 2.5 %-2.5 % topical cream 1 applic topical ONCE PRN port access 30 days #30 grams 01/19/23 [Rx Confirmed 05/09/23] anastrozole 1 mg tablet See Rx Instructions .Route .COMPLEX #90 tabs 03/15/23 [Rx Confirmed 05/09/23] amlodipine 5 mg tablet 7.5 mg (1.5 x 5 mg) PO DAILY 3 months #135 tabs 04/28/23 [Rx Confirmed 05/09/23] apixaban 5 mg tablet (Eliquis) See Rx Instructions .Route .COMPLEX #180 tabs 04/28/23 [Rx Confirmed 05/09/23] denosumab 60 mg/mL subcutaneous syringe (Prolia) 60 mg subcut [id number] #1 mL 04/28/23 [Rx Confirmed 05/09/23] paroxetine HCl 20 mg tablet (Paxil) 20 mg PO DAILY #90 tabs 04/28/23 [Rx Confirmed 05/09/23] vibegron 75 mg tablet (Gemtesa) 75 mg PO DAILY #90 tabs 04/28/23 [Rx Confirmed 05/09/23] PFSH Medical History Abnormal mammogram of left breast Anxiety Anxiety and depression Arthritis Asthma Blood clot in vein 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 Breast cancer, left Breast lump Breast pain, left Cataract (lens) fragments in eye following cataract surgery, bilateral Chest pain Chronic bronchitis CINV (chemotherapy-induced nausea and vomiting) Colon cancer screening Decreased cardiac ejection fraction DVT (deep venous thrombosis) Encounter for chemotherapy management Encounter for education Encounter for monitoring cardiotoxic drug therapy Encounter for monitoring cardiotoxic drug therapy Encounter for screening for COVID-19 Environmental allergies Fractures involving multiple body regions H/O emotional problems History of echocardiogram History of stress test Hypertension Hypokalemia Kidney stones Left shoulder pain Left thyroid nodule Non-smoker Osteopenia with high risk of fracture Pneumonia Port-A-Cath in place Pulmonary embolism Screening for breast cancer URI (upper respiratory infection) Vision problems Wears dentures Wears glasses Surgical History History of hysterectomy History of lymph node dissection of axilla History of shoulder surgery History of tonsillectomy Hx of tubal ligation S/P left mastectomy Family History Father Alcoholism AsthmaMother Anxiety Blood clot in vein Myocardial infarctionGrandmother Blood clot in vein Myocardial infarctionBrother Myocardial infarctionAunt Breast cancerGrandmother CVA (cerebral vascular accident)Daughter Suicide attemptOther Colon cancer Social History Smoking Status: Never smoker alcohol intake: never substance use type: does not use caffeine: Yes Type: carbonated beverages Number of servings: 2 what type of physical activity do you participate in: none seatbelt use: always do you feel safe at home: Yes HPI HPI HPI: 77-year-old female presents for screening colonoscopy. Had a colonoscopy about 30 years ago since then did Cologuard last time was in 2019. Patient had not gotten a Cologuard during her treatment for breast cancer. Patient is currently on [email or web address] states she is able to come off of it for procedures. Patient has bowel movements about every 2 days. Patient denies any immediate family history of colon cancer. Patient was referred for colonoscopy due to her history of breast cancer instead of just getting Cologuard. ROS General General: Yes breast cancer; No weight change, appetite, fatigue, colon cancer or weakness HEENT HEENT: No difficulty swallowing, eye injury, eye surgery, swollen glands or hoarseness Endo Endocrine: No thyroid disease, diabetes mellitus, thyroid cancer, Hair loss, heat intolerance or cold intolerance Skin Skin: No rash or changing moles Breast Breast: No left breast lump, right breast lump, nipple discharge, breast pain, abnormal mammogram, abnormal US or breast enlargement Musc Musculoskeletal: Yes arthritis; No back problems, rheumatoid arthritis, gout or joint pain Cardio Cardiovascular: Yes high blood pressure; No murmur, pacemaker, heart disease, atrial fibrillation, heart attack, heart stent, palpitations, shortness of breat with exertion or chest pain Psych Psychiatric: No depression, anxiety or hearing voices Resp Respiratory: No shortness of breath, No sleep apnea, No cough, No COPD, No asthma, No emphysema and No wheezing Gastro Gastrointestinal: No abdominal pain, No nausea or vomiting, No diarrhea, No constipation, No blood in stool, No acid reflux, No hemorrhoids, No ulcers, No gallbladder problem and No black,tarry stools [place] Hematologic: Yes blood thinners, No blood disorders, No bleeding, No anemia and Yes blood clots Neuro Neurologic: No system reviewed and no additional complaints, except as documented, No as per HPI, No abnormal gait, No abnormal hearing, No abnormal movements, No abnormal speech, No behavioral changes, No burning sensations, No confusion, No convulsions, No disequilibrium, No dizziness, No localized weakness, No frequent falls, No headache(s), No lack of coordination, No loss of vision, No memory loss, No numbness, No other visual disturbances, No radicular pain, No restless legs, No sensory deficit, No syncope, No tingling, No tremor(s), No weakness and No other Exam Const General: cooperative, healthy appearing, comfortable and no acute distress [facility] Head: normocephalic and atraumatic Neck Neck: supple Resp Effort & Inspection: normal respiratory effort Cardio Rate: regular rate GI Inspection: non-distended Palpation: soft and nontender Skin General: no rashes or lesions noted Neuro General: CN's II-XI intact bilaterally Extrem General: normal to inspection Psych Mental Status: mental status grossly normal Attitude: cooperative Assessment and Plan Assessment and Plan (1) Pulmonary emboli: Status: Chronic Comment: hx (2) Anticoagulant long-term use: Status: Acute (3) Colon cancer screening: Status: Acute Plan Let patient hold her Eliquis 3 days prior to procedure. I have discussed the above with the patient. I have offered the patient colonoscopy for evaluation. I have explained the risks/benefits of the procedure and described the procedure. I have discussed the risks with the patient, including but not limited to: infection, bleeding, perforation of the GI tract requiring emergency surgery, inability to complete the procedure, injury to any internal organs, complications of anesthesia, etc. - the patient understands and agrees to proceed. I have answered all the patient's questions to the patient's satisfaction and the patient has no further questions. The patient has been given instructions for the colon cleansing preparation. 1 day of clears, MiraLAX Dulcolax split prep. Melyssa Saab M.D. Pager: [phone] [facility] [address] [place] [address], [address] [place] [address] Office: [phone] Coding Level of Care Code Off vis,est,level 3 Diagnoses Pulmonary emboli I26.99 Anticoagulant long-term use Z79.01 Colon cancer screening Z12.11 05/09/23 1117 <Electronically signed by Melyssa Saab MD> Date Melyssa Saab MD
[2023-06-01 08:55] VITALS: BP 97/45; BP 98/68; PULSE 66; RESP 20; TEMP 36.4; O2SAT 93
[2023-06-01 09:00] VITALS: BP 92/44; BP 98/68; PULSE 66; RESP 18; O2SAT 97
--- NOTE | 2023-06-01 09:01 | OP.CCLET_ITS ---
06/01/2023 Michael Corcoran MD [address] [place] [address] [place] [address] Re : Colonoscopy procedure for Annette Parradwighttheodore Dear Dr. Corcoran This procedure was performed on Thursday, June 01, 2023. My impressions and recommendations are as follows: Impressions : - The entire examined colon is normal. - Diverticulosis in the sigmoid colon and in the descending colon. - Non-bleeding internal hemorrhoids. - No specimens collected. Recommendations : - Discharge patient to home. - High fiber diet. - Continue present medications. - Resume Eliquis (apixaban) at prior dose today. - Repeat colonoscopy 10 years--depending on overall health at that time for screening purposes. My findings are described in the full procedure note, which is enclosed. If I can be of further assistance, please feel free to contact me at Doctor phone number(s): , Work: . Sincerely, MD Melyssa Houston MD 06/01/2023 9:00:58 AM This report has been signed electronically.
--- NOTE | 2023-06-01 09:01 | OP.COLON_ITS ---
Patient Name: Annette Kuamr Procedure Date: 06/01/2023 8:16 AM Date of : 1945 Age: 77 Procedure: Colonoscopy Indications: Screening for colorectal malignant neoplasm Providers: Melyssa Saab MD Referring MD: Michael Corcoran MD Medicines: Monitored Anesthesia Care Patient Profile: This is a 77 year old female. Last Colonoscopy: more than 10 years ago. Complications: No immediate complications. Procedure: Pre-Anesthesia Assessment: - Prior to the procedure, a History and Physical was performed, and patient medications and allergies were reviewed. The patient's tolerance of previous anesthesia was also reviewed. The risks and benefits of the procedure and the sedation options and risks were discussed with the patient. All questions were answered, and informed consent was obtained. Prior Anticoagulants: The patient has taken Eliquis (apixaban), last dose was 3 days prior to procedure. ASA Grade Assessment: Per anesthesia. After reviewing the risks and benefits, the patient was deemed in satisfactory condition to undergo the procedure. After I obtained informed consent, the scope was passed under direct vision. Throughout the procedure, the patient's blood pressure, pulse, and oxygen saturations were monitored continuously. The colonoscope was introduced through the anus and advanced to the cecum, identified by the appendiceal orifice, ileocecal valve and palpation. The colonoscopy was performed without difficulty. The patient tolerated the procedure well. The quality of the bowel preparation was good. Scope In: 8:24:51 AM Scope Withdrawal Time 0 hours 12 minutes 15 seconds Scope Out: 8:47:29 AM Total Procedure Duration Time 0 hours 22 minutes 38 seconds Findings: small 0.5cm area of open/healing mucosa at 12:00 (posterior) about 2cm from anus externally-no erythema, soft The entire examined colon appeared normal. Scattered small-mouthed diverticula were found in the sigmoid colon and descending colon. Non-bleeding internal hemorrhoids were found. The hemorrhoids were Grade I (internal hemorrhoids that do not prolapse). Impression: - The entire examined colon is normal. - Diverticulosis in the sigmoid colon and in the descending colon. - Non-bleeding internal hemorrhoids. - No specimens collected. Recommendation: - Discharge patient to home. - High fiber diet. - Continue present medications. - Resume Eliquis (apixaban) at prior dose today. - Repeat colonoscopy 10 years--depending on overall health at that time for screening purposes. Procedure Code(s): --- Professional --- G0121, PT, Colorectal cancer screening; colonoscopy on individual not meeting criteria for high risk Diagnosis Code(s): --- Professional --- K57.30, Diverticulosis of large intestine without perforation or abscess without bleeding K64.0, First degree hemorrhoids Z12.11, Encounter for screening for malignant neoplasm of colon CPT copyright 2021 [employer]. All rights reserved. The codes documented in this report are preliminary and upon heat treater helper review may be revised to meet current compliance requirements. MD Melyssa Houston MD 06/01/2023 9:00:58 AM This report has been signed electronically. Number of Addenda: 0 Note Initiated On: 06/01/2023 8:16 AM
[2023-06-01 09:05] VITALS: BP 98/44; BP 98/68; PULSE 69; RESP 12; O2SAT 95
[2023-06-01 09:10] VITALS: BP 117/53; BP 98/68; PULSE 59; RESP 20; TEMP 36.8; O2SAT 99
[2023-06-01] MEDS: 0.9% Saline Lock 10 ML Syringe IV (09:13)
[2023-06-01 09:34] VITALS: BP 98/68
== END 2023-06-01 09:57 | disposition home or self-care (01) ==
LOC: EN 06:39 → AC 06:40
PROVIDERS: PCP Internal Medicine; Referring Provider Internal Medicine; Visit Provider Surgery
PROC: 0DJD8ZZ Inspection of Lower Intestinal Tract, Via Natural or Artificial Opening Endoscopic (ICD-10-PCS; CPT 45378; principal; 2023-06-01 08:10)
DX: Z12.11 Encounter for screening for malignant neoplasm of colon (principal); I27.82 Chronic pulmonary embolism; I10 Essential (primary) hypertension; Z80.0 Family history of malignant neoplasm of digestive organs; K64.0 First degree hemorrhoids; K57.30 Diverticulosis of large intestine without perforation or abscess without bleeding; Z79.01 Long term (current) use of anticoagulants
CPT/HCPCS: G0121; J7120; A4216

== ENCOUNTER 2023-07-13 11:51 | Inpatient (IN) | payer MEDICARE, SELFPAY ==
[2023-07-13] VITALS (14 sets, daily range): BP systolic 113–186; BP diastolic 54–95; PULSE 70–98; RESP 16–22; TEMP 36.3–37.1; O2SAT 92–100; BMI 37.8; BMI 37.9
--- NOTE | 2023-07-13 12:34 | CT_ITS ---
STUDY: CT ABDOMEN AND PELVIS WITH CONTRAST REASON FOR EXAM: Female, 77 years old. Abdominal pain, RLQ. The patient has a history of breast cancer. RADIATION DOSAGE (If Supplied By Facility): CTDIvol = ( 14.94 ) mGy, DLP = ( 1254.54 ) mGycm TECHNIQUE: Transaxial images were obtained from the dome of the diaphragm to the symphysis pubis without oral contrast. IV 100mL Isovue-300 was administered. Sagittal and coronal images were reconstructed. Individualized dose optimization techniques were used for this CT. COMPARISON: Comparison is made with prior study dated November 06, 2021. FINDINGS: A Port-A-Cath is seen within the superior vena cava. Status post left mastectomy. The visualized lung bases are unremarkable. Coronary artery calcification. There is decreased attenuation of the liver consistent with steatosis. The gallbladder is distended. Gallstones are seen within it. There is also evidence of sludge. The gallbladder wall is minimally thickened. Normal spleen. Normal pancreas. Mild hyperplasia of the left adrenal gland although no nodule is seen. Bilateral parapelvic renal cysts. Stable 3.7 cm cyst in the upper pole of the right kidney. Normal visualized stomach. Normal small intestine. There are scattered colonic diverticula consistent with diverticulosis. There is a tubular, thick-walled appendix (>7mm), consistent with acute appendicitis. There is evidence of a calcified appendicoliths within the appendix. There is diffuse atherosclerotic calcification of the abdominal aorta, without a demonstrated aneurysm. Normal inferior vena cava. Normal retroperitoneum. Normal urinary bladder. Normal abdominal wall. Normal osseous structures. CT/Abdomen/Pelvis W IV Cont ONLY IMPRESSION: There is evidence of acute appendicitis with appendicoliths within the gallbladder lumen. Fatty infiltration of the liver. Distention of the gallbladder with multiple gallstones and findings suggestive of mild thickened gallbladder wall. Stable bilateral renal cysts. Electronically Signed: Augustin Ruiz MD at 15:06 EDT ,
--- NOTE | 2023-07-13 12:35 | ED.VIS.GI ---
HPI HPI - GI History of Present Illness Chief Complaint: Abd Pain Detail of Chief Complaint: Abdominal pain Informant: patient Narrative Narrative: Patient presents with abdominal pain that she has had for 2 days. Became more progressive and more painful over the last 24 hours. She started vomiting last evening and was thrown up about every hour and a half. She complains of some urinary frequency but no real dysuria. Patient does have history of kidney stones. She still has her appendix. She denies diarrhea. PFSH PFS Medical History (Updated 07/13/23 @ 15:[address] Thao Gustafson, DO) Abnormal mammogram of left breast Anxiety Anxiety and depression Arthritis Asthma Blood clot in vein 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 Breast cancer, left Breast lump Breast pain, left Cardiology follow-up encounter Cataract (lens) fragments in eye following cataract surgery, bilateral Chest pain Chronic bronchitis CINV (chemotherapy-induced nausea and vomiting) Colon cancer screening Decreased cardiac ejection fraction DVT (deep venous thrombosis) Encounter for chemotherapy management Encounter for education Encounter for monitoring cardiotoxic drug therapy Encounter for monitoring cardiotoxic drug therapy Encounter for screening for COVID-19 Environmental allergies Fractures involving multiple body regions H/O emotional problems History of echocardiogram History of stress test Hypertension Hypokalemia Kidney stones Left shoulder pain Left thyroid nodule Non-smoker Osteopenia with high risk of fracture Pneumonia Port-A-Cath in place Pulmonary embolism Screening for breast cancer URI (upper respiratory infection) Vision problems Wears dentures Wears glasses Home Medications albuterol sulfate 90 mcg/actuation aerosol inhaler (Ventolin HFA) 1 - 2 puff inhalation Q4H PRN PRN Wheezing ##1 12/06/21 [Rx Last Taken Unknown] multivitamin 1 tab PO DAILY 07/15/22 [History Last Taken Unknown] loratadine 10 mg tablet (Claritin) 10 mg PO DAILY 08/26/22 [History Last Taken Unknown] biotin 1 mg capsule 1 mg PO DAILY 10/29/22 [History Last Taken Unknown] lidocaine-prilocaine 2.5 %-2.5 % topical cream 1 applic topical ONCE PRN port access 30 days #30 grams 01/19/23 [Rx Last Taken Unknown] amlodipine 5 mg tablet 7.5 mg (1.5 x 5 mg) PO DAILY 3 months #135 tabs 04/28/23 [Rx Last Taken 06/01/23] apixaban 5 mg tablet (Eliquis) See Rx Instructions .Route .COMPLEX #180 tabs 04/28/23 [Rx Last Taken 05/29/23] paroxetine HCl 20 mg tablet (Paxil) 20 mg PO DAILY #90 tabs 04/28/23 [Rx Last Taken Unknown] vibegron 75 mg tablet (Gemtesa) 75 mg PO DAILY #90 tabs 04/28/23 [Rx Last Taken Unknown] Handicap Placard #1 ea 05/24/23 [Rx Last Taken Unknown] anastrozole 1 mg tablet See Rx Instructions .Route .COMPLEX #90 tabs 06/08/23 [Rx Last Taken Unknown] denosumab 60 mg/mL subcutaneous syringe (Prolia) 60 mg subcut [id number] #1 mL 06/22/23 [Rx Last Taken Unknown] Compression arm sleeve 20-30 mmHg #2 ea 06/28/23 [Rx Last Taken Unknown] Allergy/AdvReac Type Severity Reaction Status Date / Time Penicillins Allergy Hives Verified 07/13/23 11:55 Family History Father Alcoholism Asthma Mother Anxiety Blood clot in vein Myocardial infarction Grandmother Blood clot in vein Myocardial infarction Brother Myocardial infarction Aunt Breast cancer Grandmother CVA (cerebral vascular accident) Daughter Suicide attempt Other Colon cancer Surgical History (Updated 05/25/23 @ 11:11 by Asia Nielsen) History of hysterectomy History of lymph node dissection of axilla History of shoulder surgery History of tonsillectomy Hx of left mastectomy Hx of tubal ligation S/P left mastectomy Social History Smoking Status: Never smoker alcohol intake: never substance use type: does not use caffeine: Yes Type: carbonated beverages Number of servings: 2 what type of physical activity do you participate in: none seatbelt use: always do you feel safe at home: Yes ROS ROS ED Review of Systems ROS Unobtainable: other Constitutional Constitutional ED: Reports lethargy; Denies chills, fever(s), sweats or weight loss Eyes Eyes: Denies blurry vision, change in vision or diplopia ENT ENT ED: Denies rhinorrhea or sore throat Cardiovascular Cardiovascular: Denies chest pain, orthopnea or racing heartbeat Respiratory/Chest Respiratory/Chest: Denies cough, dyspnea, dyspnea on exertion, orthopnea or sputum Gastrointestinal Gastrointestinal: Reports abdominal pain, nausea and vomiting; Denies diarrhea Genitourinary Genitourinary ED: Reports urinary frequency; Denies dysuria or hematuria Musculoskeletal Musculoskeletal: Denies arthralgias, back pain, myalgias or neck pain Integumentary Denies abscess, Abrasions or rash Neurologic Neurologic: Denies headache(s) or weakness Psychiatric Psychiatric: Denies anxiety, depression or suicidal thoughts Endocrine Endocrinology: Denies polydipsia, polyphagia or polyuria Hematologic/Lymphatic Hematologic/Lymphatic: Denies easy bleeding, easy bruising or lymphadenopathy Allergic/Immunologic Allergic/Immunologic ED: Denies mouth swelling, tongue swelling or urticaria EXAM Physical Exam Const Vital Signs: 07/13/23 11:52 07/13/23 13:52 07/13/23 15:00 Temperature 97.4 F L Temperature Source Temporal Pulse Rate 98 72 81 Respiratory Rate 16 22 H 16 Blood Pressure 113/95 H 179/69 H 186/85 H Blood Pressure Mean 101 105 118 Pulse Ox 100 93 95 Oxygen Delivery Method Room Air Room Air Room Air Positive well nourished and well developed General Appearance ED: well developed and NAD HEENT Reports TM's clear and moist mucous membranes normocephalic and atraumatic; Negative for trauma or tenderness Tympanic Membrane ED: Yes TM's clear Eyes PERRL and EOMs intact bilaterally General Eye ED: Negative for pale conjunctiva or scleral icterus Neck no lymphadenopathy, supple and no JVD General: Negative for tenderness Chest Wall inspection of chest normal and palpation of chest normal Chest: Negative for tenderness Resp normal respiratory effort and clear to auscultation bilaterally Effort and Inspection: Negative for respiratory distress or pain with movement Auscultation: Negative for rhonchi, wheezes or diminished lung sounds Cardio regular rate, regular rhythm, S1 normal heart sound, S2 normal heart sound and no murmurs Peripheral Pulses: pulses 2+ throughout GI normal to inspection, nondistended, normoactive bowel sounds, soft to palpation, non-distended and no masses GI Narrative: Tenderness palpation over right lower quadrant over McBurney's with guarding. There is no rebound, rigidity, or pineal signs. No mass palpated. Back/Spine no CVA tenderness and no thoracic nor lumbar tenderness Extremity normal to inspection General Extremety ED: Negative for edema General Extremity: Negative for edema Neuro oriented x3, CN's II-XII intact bilaterally, no sensory deficits noted and gait normal Sensorium / Orientation: awake, alert, oriented to person, oriented to place and oriented to time Motor Exam: strength 5/5 throughout and strength abnormal Psych mental status grossly normal Skin no rashes or lesions noted and no wounds MDM MDM MDM Narrative Medical decision making narrative: Patient presents with abdominal pain and vomiting pain mostly to the right lower quadrant. In the differential would be kidney stone or UTI or acute appendicitis or other acute intra-abdominal process. IV line established. Patient was medicated with morphine and Zofran and she had good pain relief with that. CBC with differential white count 17.8 with hemoglobin 13.9 and platelet count of 180. Chemistries unremarkable. LFTs normal. Urinalysis normal. CT scan of the abdomen pelvis was obtained with IV contrast and on my interpretation shows acute appendicitis. Patient also noted to have enlarged gallbladder with gallstones. Clinically she has acute appendicitis. Discussed case with general surgeon on-call who agrees after looking at the CT scan and will call in the OR team. Given her pen allergy I started her on Levaquin and Flagyl IV. Official report on CT scan from radiology pending. Patient tells me she has not taken her Eliquis in 2 days. Lab Data Attestation: I reviewed the patient's lab results. Labs: Laboratory Results - last 24 hr 07/13/23 07/13/23 12:55 14:06 WBC 17.8 H RBC 5.02 Hgb 13.9 Hct 42.6 MCV 84.9 MCH 27.7 MCHC 32.6 RDW Std Deviation 42.6 RDW Coeff of Nevin 13.8 Plt Count 180 MPV 10.1 Immature Gran % (Auto) 0.600 Neut % (Auto) 89.4 H Lymph % (Auto) 3.5 L [place] % (Auto) 6.2 Eos % (Auto) 0.0 Baso % (Auto) 0.3 Absolute Neuts (auto) 15.9 H Absolute Lymphs (auto) 0.63 L Nucleated RBC % 0 Sodium 136 Potassium 3.6 Chloride 101 Carbon Dioxide 27.0 Anion Gap 8 BUN 18 Creatinine 1.20 H Estim Creat Clear Calc 40.96 Est GFR (MDRD) Af Amer 56 L Est GFR (MDRD) Non-Af 46 L BUN/Creatinine Ratio 15.0 Glucose 219 H Lactic Acid 1.9 Calcium 9.1 Total Bilirubin 1.00 AST 12 L ALT 14 Alkaline Phosphatase 92 Total Protein 7.4 Albumin 3.6 Globulin 3.8 Albumin/Globulin Ratio 0.9 Urine Color Yellow Urine Clarity Sl. Cloudy Urine pH 7.0 Ur Specific [place] 1.010 Urine Protein 100 H Urine Glucose (UA) Normal Urine Ketones 5 H Urine Occult Blood 10 H Urine Nitrite Negative Urine Bilirubin Negative Urine Urobilinogen Normal Ur Leukocyte Esterase 25 H Urine RBC 0-5 SEEN Urine WBC 0-5 SEEN Ur Squamous Epith Cells 0-5 SEEN Urine Bacteria 1+ Urine Mucus 1+ EKG Initial EKG: Attestation: I personally reviewed and interpreted this EKG as follows: Comments: Sinus rhythm with ventricular rate of 72 bpm with left anterior fascicular block and LVH Discharge Plan Dx/Rx/DC Orders Clinical Impression: History of deep vein thrombosis, Abdominal pain, Acute appendicitis Disposition Disposition: Acute Care [facility]
[2023-07-13] MEDS: Ondansetron 4 MG/2 ML Vial IV (12:59)
[2023-07-13] MEDS: Morphine 4 MG/ML Syringe IV (12:59)
[2023-07-13] MEDS: 0.9% Normal Saline (1000mL) 1,000 ML 125 ML IV (13:11)
[2023-07-13 13:22] LABS: Absolute Lymphocyte Count 0.63 X10^3/uL (0.83-4.51); Absolute Neutrophil Count 15.9 X10^3/uL (2.0-7.7); Basophil# 0.05 X10^3/uL; Basophil% 0.3 % (0-1); Hematocrit 42.6 % (37-47); Hemoglobin 13.9 g/dL (12.0-15.0); Lymphocyte # 0.63 X10^3/ul (0.83-4.51); Lymphocyte % 3.5 % (19-41); Mean Corp Hgb Conc 32.6 g/dL (32-36); Mean Corpuscular Hgb 27.7 pg (27.0-32.0); Mean Corpuscular Volume 84.9 fL (81-99); Mean Platelet Vol. 10.1 fl (6.2-12.0); Monocyte% 6.2 % (0-10); NRBC Flagged by Analyzer 0 % (0-5); Neutrophil # 15.92 X10^3/uL (2.7-7.7); Neutrophil % 89.4 % (47-70); Platelet Count 180 K/mm3 (150-450); RBC Distribution Width CV 13.8 % (11.6-14.6); RBC Distribution Width SD 42.6 fl (35.1-43.9); Red Blood Count 5.02 M/mm3 (4.2-5.4); White Blood Count 17.8 K/mm3 (4.4-11.0)
[2023-07-13 13:51] LABS: ALB/GLOB Ratio 0.9 RATIO (0.9-2.4); AST(SGOT) 12 U/L (15-37); Alanine Aminotransfer ALT/SGPT 14 U/L (13-56); Albumin, Serum 3.6 g/dL (3.2-5.0); Alkaline Phosphatase 92 U/L (45-117); Anion Gap 8 (5-15); BUN 18 mg/dL (7-18); Calcium,Total 9.1 mg/dL (8.5-10.1); Chloride 101 mmol/L (98-107); EST Glomerular Filtration Rate 46 mL/min (>60); Est Glom Filt Rate - Afr Amer 56 mL/min (>60); Estimated Creatinine Clearance 40.96 ml/min; Globulin 3.8 g/dL (2.2-4.2); Glucose 219 mg/dL (74-106); Potassium 3.6 mmol/L (3.5-5.1); Protein, Total 7.4 g/dL (6.4-8.2); Sodium Level 136 mmol/L (136-145)
[2023-07-13 13:52] LABS: Lactic Acid 1.9 mmol/L (0.4-1.9)
[2023-07-13 14:12] LABS: Color, Urine Yellow (Yellow); Glucose, Dipstick Normal (Normal); Ketone-Dipstick 5 mg/dl (Negative); Leukocyte Esterase-Dipstick 25 /ul (Negative); Nitrite-Dipstick Negative (Negative); Occult Blood-Urine 10 /ul (Negative); Protein-Dipstick 100 mg/dl (Negative); Urine Bilirubin Dipstick Negative (Negative); Urine Clarity Sl. Cloudy (Clear); Urine Urobilinogen Normal (Normal)
[2023-07-13 14:22] LABS: Bacteria 1+ /hpf (None Seen); Mucous, Urine 1+ /hpf (<or=2+); Red Blood Cells-Urine 0-5 SEEN /hpf (0-5); Squamous Epithelial Cells - UA 0-5 SEEN /hpf (5-10); White Blood Cells 0-5 SEEN /hpf (0-5)
--- NOTE | 2023-07-13 14:57 | EKG12_ITS ---
Test Reason : PRE OP Blood Pressure : / mmHG Vent. Rate : 072 BPM Atrial Rate : 072 BPM P-R Int : 172 ms QRS Dur : 100 ms QT Int : 386 ms P-R-T Axes : 035 -50 011 degrees QTc Int : 422 ms Normal sinus rhythm Left anterior fascicular block Left ventricular hypertrophy ( R in aVL , Fernando product , Romhilt-Ferrell ) Abnormal ECG Confirmed by RUTHIE NICHOLAS, HARISH ([id number]), fan mail editor SHANNAN RAINES ([id number]) on 07/14/2023 9:00:26 AM Referred By: Confirmed By:HARISH HENDRICKS MD
[2023-07-13] MEDS: levoFLOXacin IV 750 MG/150 ML BAG 100 MG IV (14:59)
--- NOTE | 2023-07-13 15:29 | HP.PCM.SX_ITS ---
HPI - General HPI Narrative PAUL BARONE, is a 77 F who presents with 2 days of right lower quadrant pain. Patient also has nausea and vomiting and chills. She denies fever. There is no pain in the right upper quadrant. [facility] Medical History (Updated 07/13/23 @ 15:[address] Bertram Ibarra MD) Abnormal mammogram of left breast Anxiety Anxiety and depression Arthritis Asthma Blood clot in vein 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 Breast cancer, left Breast lump Breast pain, left Cardiology follow-up encounter Cataract (lens) fragments in eye following cataract surgery, bilateral Chest pain Chronic bronchitis CINV (chemotherapy-induced nausea and vomiting) Colon cancer screening Decreased cardiac ejection fraction DVT (deep venous thrombosis) Encounter for chemotherapy management Encounter for education Encounter for monitoring cardiotoxic drug therapy Encounter for monitoring cardiotoxic drug therapy Encounter for screening for COVID-19 Environmental allergies Fractures involving multiple body regions H/O emotional problems History of echocardiogram History of stress test Hypertension Hypokalemia Kidney stones Left shoulder pain Left thyroid nodule Non-smoker Osteopenia with high risk of fracture Pneumonia Port-A-Cath in place Pulmonary embolism Screening for breast cancer URI (upper respiratory infection) Vision problems Wears dentures Wears glasses Home Medications albuterol sulfate 90 mcg/actuation aerosol inhaler (Ventolin HFA) 1 - 2 puff inhalation Q4H PRN PRN Wheezing ##1 12/06/21 [Rx Last Taken Unknown] multivitamin 1 tab PO DAILY 07/15/22 [History Last Taken Unknown] loratadine 10 mg tablet (Claritin) 10 mg PO DAILY 08/26/22 [History Last Taken Unknown] biotin 1 mg capsule 1 mg PO DAILY 10/29/22 [History Last Taken Unknown] lidocaine-prilocaine 2.5 %-2.5 % topical cream 1 applic topical ONCE PRN port access 30 days #30 grams 01/19/23 [Rx Last Taken Unknown] amlodipine 5 mg tablet 7.5 mg (1.5 x 5 mg) PO DAILY 3 months #135 tabs 04/28/23 [Rx Last Taken 06/01/23] apixaban 5 mg tablet (Eliquis) See Rx Instructions .Route .COMPLEX #180 tabs 04/28/23 [Rx Last Taken 05/29/23] paroxetine HCl 20 mg tablet (Paxil) 20 mg PO DAILY #90 tabs 04/28/23 [Rx Last Taken Unknown] vibegron 75 mg tablet (Gemtesa) 75 mg PO DAILY #90 tabs 04/28/23 [Rx Last Taken Unknown] Handicap Placard #1 ea 05/24/23 [Rx Last Taken Unknown] anastrozole 1 mg tablet See Rx Instructions .Route .COMPLEX #90 tabs 06/08/23 [Rx Last Taken Unknown] denosumab 60 mg/mL subcutaneous syringe (Prolia) 60 mg subcut [id number] #1 mL 06/22/23 [Rx Last Taken Unknown] Compression arm sleeve 20-30 mmHg #2 ea 06/28/23 [Rx Last Taken Unknown] Allergy/AdvReac Type Severity Reaction Status Date / Time Penicillins Allergy Hives Verified 07/13/23 11:55 Family History Father Alcoholism Asthma Mother Anxiety Blood clot in vein Myocardial infarction Grandmother Blood clot in vein Myocardial infarction Brother Myocardial infarction Aunt Breast cancer Grandmother CVA (cerebral vascular accident) Daughter Suicide attempt Other Colon cancer Surgical History (Updated 05/25/23 @ 11:11 by Asia Nielsen) History of hysterectomy History of lymph node dissection of axilla History of shoulder surgery History of tonsillectomy Hx of left mastectomy Hx of tubal ligation S/P left mastectomy Social History Smoking Status: Never smoker alcohol intake: never substance use type: does not use caffeine: Yes Type: carbonated beverages Number of servings: 2 what type of physical activity do you participate in: none seatbelt use: always do you feel safe at home: Yes ROS Constitutional Constitutional: Denies anorexia or fatigue Eyes Eyes: Denies blurry vision ENT HEENT: Denies abnormal hearing Cardiovascular Cardiovascular: Denies chest pain Respiratory/Chest Respiratory/Chest: Denies cough or dyspnea Gastrointestinal Gastrointestinal: Reports abdominal pain, nausea and vomiting; Denies hematemesis or hematochezia Genitourinary Genitourinary: Denies change in urinary stream Musculoskeletal Musculoskeletal: Denies abnormal gait Integumentary Integumentary: Denies jaundice Neurologic Neurologic: Denies abnormal gait Psychiatric Psychiatric: Denies anxiety Endocrine Endocrinology: Denies flushing Hematologic/Lymphatic Hematologic/Lymphatic: Reports easy bleeding Vital Signs Vital Signs Vital Signs: 07/13/23 11:52 07/13/23 13:52 07/13/23 15:00 Temperature 97.4 F L Temperature Source Temporal Pulse Rate 98 72 81 Respiratory Rate 16 22 H 16 Blood Pressure 113/95 H 179/69 H 186/85 H Blood Pressure Mean 101 105 118 Pulse Ox 100 93 95 Oxygen Delivery Method Room Air Room Air Room Air 07/13/23 15:08 Temperature 98.8 F Temperature Source Pulse Rate 72 Respiratory Rate 18 Blood Pressure 186/65 H Blood Pressure Mean 105 Pulse Ox 95 Oxygen Delivery Method Weight Weight: 200 lb 7 oz Body Mass Index (BMI) 37.8 Physical Exam Const oriented x3 and no apparent distress Cardio regular rate and regular rhythm GI soft to palpation Palpation: tender RLQ external exam normal Extremity normal to inspection Results Lab / Micro Data 07/13/23 12:55 07/13/23 12:55 Labs: Laboratory Results - last 24 hr 07/13/23 12:55: WBC 17.8 H, RBC 5.02, Hgb 13.9, Hct 42.6, MCV 84.9, MCH 27.7, MCHC 32.6, RDW Std Deviation 42.6, RDW Coeff of Nevin 13.8, Plt Count 180, MPV 10.1, Immature Gran % (Auto) 0.600, Neut % (Auto) 89.4 H, Lymph % (Auto) 3.5 L, [place] % (Auto) 6.2, Eos % (Auto) 0.0, Baso % (Auto) 0.3, Absolute Neuts (auto) 15.9 H, Absolute Lymphs (auto) 0.63 L, Nucleated RBC % 0, Sodium 136, Potassium 3.6, Chloride 101, Carbon Dioxide 27.0, Anion Gap 8, BUN 18, Creatinine 1.20 H, Estim Creat Clear Calc 40.96, Est GFR (MDRD) Af Amer 56 L, Est GFR (MDRD) Non-Af 46 L, BUN/Creatinine Ratio 15.0, Glucose 219 H, Lactic Acid 1.9, Calcium 9.1, Total Bilirubin 1.00, AST 12 L, ALT 14, Alkaline Phosphatase 92, Total Protein 7.4, Albumin 3.6, Globulin 3.8, Albumin/Globulin Ratio 0.9 07/13/23 14:06: Urine Color Yellow, Urine Clarity Sl. Cloudy, Urine pH 7.0, Ur Specific [place] 1.010, Urine Protein 100 H, Urine Glucose (UA) Normal, Urine Ketones 5 H, Urine Occult Blood 10 H, Urine Nitrite Negative, Urine Bilirubin Negative, Urine Urobilinogen Normal, Ur Leukocyte Esterase 25 H, Urine RBC 0-5 SEEN, Urine WBC 0-5 SEEN, Ur Squamous Epith Cells 0-5 SEEN, Urine Bacteria 1+, Urine Mucus 1+ Assessment & Plan Assessment/Plan (1) Acute appendicitis: QUALIFIERS: Acute appendicitis type: unspecified acute appendicitis type Qualified Code(s): K35.80 - Unspecified acute appendicitis PLAN: The patient appears to have acute appendicitis. Her CT is not read yet but I did review it and there is inflammation around her appendix and she has 2 appendicoliths. She also is a white count of 17 and right lower quadrant pain with nausea and vomiting. I have started on Levaquin and Flagyl as she is penicillin allergic. I discussed laparoscopic appendectomy with her and her family members. I will take her now for surgery and admit her overnight on antibiotics and IV fluids. I discussed the risks of the procedure such as bleeding, infection, injury other organs such as the bowel, bladder, ureter. Patient understands all the risks and is willing to proceed. She has not taken her Eliquis in 2 days as she has been vomiting. Bertram Ibarra MD Pager: [facility] [address] [place] [address], [address] [place] [address] Office:
--- NOTE | 2023-07-13 15:35 | APP_PTH ---
PATIENT: PAUL BARONE LOC: MS3 U#:[id number] AGE/SX: 77/F ROOM: MS309 RE07/14/[address]: Dr. Bertram Ibarra MD : 1945 BED: 1 DIS: 07/15/2023 SPEC #: [id number] RECD: 07/13/23 18:30 STATUS: ARSENIO PASTRANA #: [id number] LIONEL: 07/13/23 15:[address]: Bertram Ibarra DEPT: SURGICAL PATHOLOGY RECD BY: Clarisse Moscoso ENTERED: 07/14/23 07:53 SP TYPE: APPENDIX OTHR DR: Dr. Michael Corcoran MD Tissues: Appendix, NOS Procedures: Surgery Specimen Level III HEADER OPERATION: Laparoscopic, Appendectomy PRE-OP DIAGNOSIS: Acute appendicitis TISSUE SUBMITTED: Appendix MICROSCOPIC DIAGNOSIS Appendix, appendectomy; Acute purulent and ruptured appendicitis and periappendicitits. SJ/mr 07/15/23 MICROSCOPIC DESCRIPTION Slides are reviewed. GROSS DESCRIPTION Received in fixative is one container labeled with the patient's name and designated appendix. The specimen consists of an appendix measuring 6.5 cm in length and up to 1.0 cm in diameter. The attached periappendiceal adipose tissue measures up to 1.5 cm in width. Focal area rupture is noted. The serosal surface is covered with eagle purulent exudate, congested and hemorrhagic. The lumen is filled with blood clot and fecal material. No fecalith is identified. Learning Center Coordinator sections are submitted in one cassette. / GALE: 07/14/23 TC:2 CPT: 57580
[2023-07-13] MEDS: metroNIDAZOLE 500 MG/100 ML BAG 100 MG IV (16:20)
[2023-07-13] MEDS: Bupivacaine Mpf 0.5% 30 ML VIAL (16:55)
--- NOTE | 2023-07-13 17:06 | OP.PCM_ITS ---
Report of Operation Date of Procedure: 07/13/23 Pre-Operative Diagnosis: Acute appendicitis Post-Operative Diagnosis: Acute appendicitis Surgery/Procedure Performed:: Laparoscopic appendectomy Description of Surgical Findings:: Inflamed appendix with leakage of stool Type of Anesthesia: General/Regional Specimen's removed: Appendix Estimated Blood Loss (mL): 10 Description of Procedure: The patient was brought into the operating room and general anesthesia was induced. The left arm was tucked and the abdomen was prepped and draped in usual sterile fashion. A small midline incision was made superior to the umbilicus and deepened to the level of the fascia. The fascia was elevated and incised. The peritoneum was also elevated and incised. A finger sweep was performed and a balloon trocar was placed into the abdomen and inflated. The abdomen was insufflated to 15 mmHg and the camera was inserted and the abdomen was inspected for any injuries upon entering the abdomen. There were none. There were adhesions to the midline abdomen lower in the pelvis. The patient was placed in Trendelenburg position and a 5 mm ports placed in the right upper quadrant suprapubic areas under direct visualization due to the scar tissue.. Next using atraumatic bowel graspers the appendix was identified. The appendix was very inflamed and when the tip of the appendix was grasped it ruptured and the appendicolith came out. The pieces of appendicolith were placed into an Endo Catch bag. The appendix was grasped and elevated and Enseal was used to take down the mesoappendix. A stapler was used to come across the base of the appendix. The appendix was then placed in Endo Catch bag and removed through the umbilical incision. Staple line was mildly bleeding and so titanium clips were used to contain the bleeding. The staple line was inspected and found to be hemostatic and intact. The area was irrigated and suctioned dry. The 2 5 mm ports are removed under direct visualization. The balloon trocar was deflated and removed and all the air was removed from the abdomen. The umbilical incision fascia was closed with an 0 Vicryl [id number] suture using the Jose Luo needle. The incisions were then irrigated with saline and dried. Local anesthetic was injected into the incision sites. The skin incisions were then closed with interrupted 4-0 Monocryl suture and Steri- Strips. Bandages were applied and the patient was awoken and taken to PACU in stable condition. Patient tolerated the procedure well. Admit VTE Documentation VTE Mechan Device Prophylaxis: SCD's
[2023-07-13] MEDS: 0.9% Normal Saline (1000mL) 1,000 ML 60 ML IV (18:40)
[2023-07-13] MEDS: Acetaminophen 325 MG Tablet 650 MG PO (20:07)
[2023-07-13] MEDS: oxyCODONE 5 MG Tablet PO (20:08)
[2023-07-13] MEDS: Ciprofloxacin 400 MG/200 ML BAG 200 MG IV (20:59)
[2023-07-14] VITALS (11 sets, daily range): BP systolic 84–126; BP diastolic 39–69; PULSE 59–76; RESP 16–20; TEMP 36.3–36.9; O2SAT 87–97; BMI 37.9
[2023-07-14] MEDS: metroNIDAZOLE 500 MG/100 ML BAG 100 MG IV ×4 (00:12→21:06)
[2023-07-14] MEDS: oxyCODONE 5 MG Tablet PO ×2 (00:33→20:51)
[2023-07-14] MEDS: Acetaminophen 325 MG Tablet 650 MG PO ×3 (00:34→20:51)
--- NOTE | 2023-07-14 08:00 | DS.PCM_ITS ---
Providers Date of Admission: 07/13/23 Primary Care Physician: Dr. Michael Corcoran MD Reason For Visit: ACUTE APPENDICITIS Diagnosis Discharge Diagnosis (1) Acute appendicitis: Status: Acute Code(s): K35.80 - Unspecified acute appendicitis Qualifiers: Acute appendicitis type: unspecified acute appendicitis type Qualified Code(s): K35.80 - Unspecified acute appendicitis Plan: The patient appears to have acute appendicitis. Her CT is not read yet but I did review it and there is inflammation around her appendix and she has 2 appendicoliths. She also is a white count of 17 and right lower quadrant pain with nausea and vomiting. I have started on Levaquin and Flagyl as she is penicillin allergic. I discussed laparoscopic appendectomy with her and her family members. I will take her now for surgery and admit her overnight on antibiotics and IV fluids. I discussed the risks of the procedure such as bleeding, infection, injury other organs such as the bowel, bladder, ureter. Patient understands all the risks and is willing to proceed. She has not taken her Eliquis in 2 days as she has been vomiting. Bertram Ibarra MD Pager: [facility] [address] [place] [address], [address] [place] [address] Office: Medications at Discharge Home Medications albuterol sulfate 90 mcg/actuation aerosol inhaler (Ventolin HFA) 1 - 2 puff inhalation Q4H PRN PRN Wheezing ##1 12/06/21 multivitamin 1 tab PO DAILY 07/15/22 loratadine 10 mg tablet (Claritin) 10 mg PO DAILY PRN allergies 08/26/22 biotin 1 mg capsule 1 mg PO DAILY 10/29/22 lidocaine-prilocaine 2.5 %-2.5 % topical cream 1 applic topical ONCE PRN port access 30 days #30 grams 01/19/23 amlodipine 5 mg tablet 7.5 mg (1.5 x 5 mg) PO DAILY 3 months #135 tabs 04/28/23 apixaban 5 mg tablet (Eliquis) See Rx Instructions .Route .COMPLEX #180 tabs 04/28/23 paroxetine HCl 20 mg tablet (Paxil) 20 mg PO DAILY #90 tabs 04/28/23 vibegron 75 mg tablet (Gemtesa) 75 mg PO DAILY #90 tabs 04/28/23 Handicap Placard #1 ea 05/24/23 anastrozole 1 mg tablet See Rx Instructions .Route .COMPLEX #90 tabs 06/08/23 denosumab 60 mg/mL subcutaneous syringe (Prolia) 60 mg subcut [id number] #1 mL 06/22/23 Compression arm sleeve 20-30 mmHg #2 ea 06/28/23 acetaminophen 325 mg tablet 650 mg (2 x 325 mg) PO Q4H PRN PRN Pain 1-10 Or Fever #0 tabs 07/14/23 ciprofloxacin HCl 500 mg tablet (Cipro) 500 mg PO BID 7 days #14 tabs 07/14/23 metronidazole 500 mg tablet 500 mg PO TID 7 days #21 tabs 07/14/23 oxycodone 5 mg tablet 5 - 10 mg (1 - 2 x 5 mg) PO Q4H PRN PRN PAIN 4-10 5 days #15 tabs 07/14/23 Hospital Course Operations appendectomy Procedures None Summary of Care Provided Hospital Course: Patient presented with right lower quadrant pain and CT scan confirmed acute appendicitis. She was taken for laparoscopic appendectomy. During appendectomy the patient had a very friable appendix and grasping it ruptured. The stool was removed and the abdomen was irrigated and suctioned dry but I will send her home on a week of oral antibiotics to make sure she does not get an abscess. The following morning she was tolerating clear liquids and feeling well. I advance her to a regular diet when she tolerates that she will be discharged home. Physical Exam Const oriented x3 and no apparent distress Resp normal respiratory effort Cardio regular rate and regular rhythm GI soft to palpation and non-tender Extremity normal to inspection Weight / BMI Weight Weight: 200 lb 7 oz Body Mass Index (BMI) 37.8 ABG / Lab / Microbiology Data 07/13/23 12:55 07/13/23 12:55 Laboratory: Laboratory Results - last 24 hr 07/13/23 12:55: WBC 17.8 H, RBC 5.02, Hgb 13.9, Hct 42.6, MCV 84.9, MCH 27.7, MCHC 32.6, RDW Std Deviation 42.6, RDW Coeff of Nevin 13.8, Plt Count 180, MPV 10.1, Immature Gran % (Auto) 0.600, Neut % (Auto) 89.4 H, Lymph % (Auto) 3.5 L, [place] % (Auto) 6.2, Eos % (Auto) 0.0, Baso % (Auto) 0.3, Absolute Neuts (auto) 15.9 H, Absolute Lymphs (auto) 0.63 L, Nucleated RBC % 0, Sodium 136, Potassium 3.6, Chloride 101, Carbon Dioxide 27.0, Anion Gap 8, BUN 18, Creatinine 1.20 H, Estim Creat Clear Calc 40.96, Est GFR (MDRD) Af Amer 56 L, Est GFR (MDRD) Non-Af 46 L, BUN/Creatinine Ratio 15.0, Glucose 219 H, Lactic Acid 1.9, Calcium 9.1, Total Bilirubin 1.00, AST 12 L, ALT 14, Alkaline Phosphatase 92, Total Protein 7.4, Albumin 3.6, Globulin 3.8, Albumin/Globulin Ratio 0.9 07/13/23 14:06: Urine Color Yellow, Urine Clarity Sl. Cloudy, Urine pH 7.0, Ur Specific [place] 1.010, Urine Protein 100 H, Urine Glucose (UA) Normal, Urine Ketones 5 H, Urine Occult Blood 10 H, Urine Nitrite Negative, Urine Bilirubin Negative, Urine Urobilinogen Normal, Ur Leukocyte Esterase 25 H, Urine RBC 0-5 SEEN, Urine WBC 0-5 SEEN, Ur Squamous Epith Cells 0-5 SEEN, Urine Bacteria 1+, Urine Mucus 1+ Radiography Diagnostic Testing: Radiology Impression Abdomen/Pelvis CT 07/13/23 12:34 IMPRESSION: There is evidence of acute appendicitis with appendicoliths within the gallbladder lumen. Fatty infiltration of the liver. Distention of the gallbladder with multiple gallstones and findings suggestive of mild thickened gallbladder wall. Stable bilateral renal cysts. Electronically Signed: Augustin Ruiz MD at 15:06 EDT , D/C Instructions Discharge Diet: Light diet - advance as tolerated Discharge Activity: May Not Drive (for 2-3 days or while taking narcotic pain medications) and May Shower Lifting Restrictions: 15 pounds for 2 weeks Call your doctor if your incision/area has: Continuous Slow Oozing, Sudden Increased Bleeding, Increased Pain/ Swelling, Increased Redness and Foul Smelling Discharge Call your doctor if you observe: Fever of 101 or Higher Suture Line Care: Avoid Pulling/Pushing and Avoid Pinching/Bending Remove Dressing in: 2 days (Remove clear dressing in 2 days, remove Steri-Strips in 7 to 10 days) Cleanse incision/area with: Soap & Water Additional Dressing/Incision Instructions: Alternate ibuprofen and Tylenol for pain control, oxycodone for breakthrough pain. Pain medications may constipate you, so take MiraLAX or magnesium citrate if needed. Resume Eliquis on Tuesday, 07/14 Additional Instructions: Keep dressing clean and dry. Change or remove dressing in 2 days. Leave steri strips for 1 week. May protect with a gauze bandaid. Please Follow Up With: Bertram Ibarra MD When: Please call to schedule 2 week follow up appointment at [phone] Meaningful Use Info Meaningful Use Diagnoses (Choose all that apply): None applicable Discharge Plan Admission Admit Date/Time: 07/13/23 17:10 Attending Provider: Bertram Ibarra Primary Care Provider: Michael Corcoran Discharge Orders/Prescriptions Prescriptions: New acetaminophen 325 mg Tablet 650 mg PO Q4H PRN PRN (Reason: Pain 1-10 Or Fever) Qty: 0 0RF oxycodone 5 mg Tablet 5 - 10 mg PO Q4H PRN PRN (Reason: PAIN 4-10) 5 Days Qty: 15 0RF ciprofloxacin HCl [Cipro] 500 mg tablet 500 mg PO BID 7 Days Qty: 14 0RF metronidazole 500 mg tablet 500 mg PO TID 7 Days Qty: 21 0RF Continued loratadine [Claritin] 10 mg tablet 10 mg PO DAILY PRN (Reason: allergies) multivitamin Tablet 1 tab PO DAILY biotin 1 mg capsule 1 mg PO DAILY amlodipine 5 mg tablet 7.5 mg PO DAILY 90 Days Qty: 135 2RF Eliquis 5 mg tablet See Rx Instructions .ROUTE .COMPLEX Qty: 180 1RF Hold Instructions: Away until JPs are removed we will have Lovenox once a day instead which will be a therapeutic dose Dose Instruction: Take 1 tablet by mouth twice daily Patient Comments: stop 3 days prior to procedure Rx Instructions: Take 1 tablet by mouth twice daily paroxetine HCl [Paxil] 20 mg tablet 20 mg PO DAILY Qty: 90 3RF Gemtesa 75 mg tablet 75 mg PO DAILY Qty: 90 2RF albuterol sulfate [Ventolin HFA] 90 mcg/actuation HFA aerosol inhaler 1 - 2 puff inhalation Q4H PRN PRN (Reason: Wheezing) Qty: 1 0RF Patient Comments: Patient uses prn, but hasn't used in two years. Rx Instructions: may substitute for different brand of albuterol if needed lidocaine-prilocaine 2.5-2.5 % cream 1 applic topical ONCE PRN (Reason: port access) 30 Days Qty: 30 2RF (DME) Handicap Placard See Rx Instructions .ROUTE .MEDSUPPLY Qty: 1 0RF Rx Instructions: As directed, length of time 3 years anastrozole 1 mg tablet See Rx Instructions .ROUTE .COMPLEX Qty: 90 0RF Dose Instruction: Take 1 tablet by mouth once daily Rx Instructions: Take 1 tablet by mouth once daily Prolia 60 mg/mL syringe 60 mg subcut [id number] Qty: 1 2RF Patient Comments: Patient has not started yet, bu will start it. (DME) Compression arm sleeve 20-30 mmHg See Rx Instructions .Route .MEDSUPPLY Qty: 2 4RF Rx Instructions: As directed Referrals / Follow Up: Michael Corcoran MD [Primary Care Provider] - Disposition Disposition (needs filled in before D/C Order can be placed): Home, Self Care
[2023-07-14] MEDS: Anastrozole 1 MG TABLET PO (08:05)
[2023-07-14 08:06] LABS: Absolute Lymphocyte Count 0.62 X10^3/uL (0.83-4.51); Absolute Neutrophil Count 15.7 X10^3/uL (2.0-7.7); Basophil# 0.12 X10^3/uL; Basophil% 0.7 % (0-1); Hematocrit 39.4 % (37-47); Hemoglobin 12.3 g/dL (12.0-15.0); Lymphocyte # 0.62 X10^3/ul (0.83-4.51); Lymphocyte % 3.5 % (19-41); Mean Corp Hgb Conc 31.2 g/dL (32-36); Mean Corpuscular Hgb 27.3 pg (27.0-32.0); Mean Corpuscular Volume 87.6 fL (81-99); Monocyte# 1.39 X10^3/uL; Monocyte% 7.8 % (0-10); NRBC Flagged by Analyzer 0 % (0-5); Neutrophil # 15.67 X10^3/uL (2.7-7.7); Neutrophil % 87.6 % (47-70); POSITIVE MORPHOLOGY YES; Platelet Count 180 K/mm3 (150-450); RBC Distribution Width CV 14.6 % (11.6-14.6); RBC Distribution Width SD 47.3 fl (35.1-43.9); White Blood Count 17.9 K/mm3 (4.4-11.0)
[2023-07-14] MEDS: Paroxetine 20 MG Tablet PO (08:06)
[2023-07-14] MEDS: Loratadine 10 MG Tablet PO (08:06)
[2023-07-14] MEDS: Vibegron 75 MG TABLET PO (08:06)
[2023-07-14 08:12] LABS: Differential Indicated SCAN CRITERIA MET
[2023-07-14 08:39] LABS: Anion Gap 8 (5-15); BUN 34 mg/dL (7-18); BUN/Creat Ratio 16.1 RATIO (10-20); Calcium,Total 8.4 mg/dL (8.5-10.1); Chloride 104 mmol/L (98-107); Creatinine, Serum 2.11 mg/dL (0.55-1.02); Differential Comment SCANNED; EST Glomerular Filtration Rate 24 mL/min (>60); Est Glom Filt Rate - Afr Amer 29 mL/min (>60); Estimated Creatinine Clearance 23.29 ml/min; Glucose 250 mg/dL (74-106); Potassium 4.2 mmol/L (3.5-5.1); Sodium Level 135 mmol/L (136-145)
[2023-07-14] MEDS: Ciprofloxacin 400 MG/200 ML BAG 200 MG IV ×2 (09:13→23:29)
[2023-07-14] MEDS: 0.9% Normal Saline (1000mL) 1,000 ML 999 ML IV (10:04)
[2023-07-14] MEDS: 0.9% Normal Saline (1000mL) 1,000 ML 60 ML IV (10:45)
--- NOTE | 2023-07-14 11:53 | PCM.PN.BLA ---
Progress Note The patient had some hypotension. She did respond to a fluid bolus. Given the fact that she still has a white count of 17 with left shift and did have this hypotension and her creatinine is mildly elevated I will give her another bolus and keep her again overnight and recheck labs in the morning.
[2023-07-14] MEDS: 0.9% Normal Saline (1000mL) 1,000 ML 125 ML IV (20:53)
[2023-07-15 04:28] VITALS: BP 125/49; PULSE 69; RESP 20; TEMP 36.8; O2SAT 92
[2023-07-15] MEDS: Acetaminophen 325 MG Tablet 650 MG PO (04:35)
[2023-07-15] MEDS: metroNIDAZOLE 500 MG/100 ML BAG 100 MG IV ×2 (05:07→13:18)
[2023-07-15 07:21] LABS: Absolute Lymphocyte Count 0.91 X10^3/uL (0.83-4.51); Absolute Neutrophil Count 10.5 X10^3/uL (2.0-7.7); Basophil# 0.02 X10^3/uL; Basophil% 0.2 % (0-1); Eosinophil# 0.01 X10^3/uL; Eosinophils% 0.1 % (0-5); Hematocrit 33.7 % (37-47); Hemoglobin 10.7 g/dL (12.0-15.0); Lymphocyte # 0.91 X10^3/ul (0.83-4.51); Lymphocyte % 7.3 % (19-41); Mean Corp Hgb Conc 31.8 g/dL (32-36); Mean Corpuscular Hgb 27.9 pg (27.0-32.0); Mean Corpuscular Volume 87.8 fL (81-99); Mean Platelet Vol. 10.7 fl (6.2-12.0); Monocyte# 0.95 X10^3/uL; Monocyte% 7.6 % (0-10); NRBC Flagged by Analyzer 0 % (0-5); Neutrophil # 10.54 X10^3/uL (2.7-7.7); Neutrophil % 84.3 % (47-70); Platelet Count 137 K/mm3 (150-450); RBC Distribution Width CV 14.8 % (11.6-14.6); RBC Distribution Width SD 47.7 fl (35.1-43.9); Red Blood Count 3.84 M/mm3 (4.2-5.4); White Blood Count 12.5 K/mm3 (4.4-11.0)
[2023-07-15] MEDS: Paroxetine 20 MG Tablet PO (07:36)
[2023-07-15] MEDS: Vibegron 75 MG TABLET PO (07:37)
[2023-07-15] MEDS: Loratadine 10 MG Tablet PO (07:37)
[2023-07-15] MEDS: Anastrozole 1 MG TABLET PO (07:38)
[2023-07-15 07:42] LABS: Anion Gap 7 (5-15); BUN 41 mg/dL (7-18); BUN/Creat Ratio 21.9 RATIO (10-20); Calcium,Total 8.1 mg/dL (8.5-10.1); Chloride 108 mmol/L (98-107); Creatinine, Serum 1.87 mg/dL (0.55-1.02); EST Glomerular Filtration Rate 28 mL/min (>60); Est Glom Filt Rate - Afr Amer 34 mL/min (>60); Estimated Creatinine Clearance 26.28 ml/min; Glucose 128 mg/dL (74-106); Potassium 3.9 mmol/L (3.5-5.1); Sodium Level 137 mmol/L (136-145)
--- NOTE | 2023-07-15 08:03 | PCM.PN.SRG ---
Subjective Subjective Patient reports tolerating regular diet with no nausea or vomiting. Her pain is still minimal. She is reports there is about a 4 and it comes and goes. She is still not having flatus. Her blood pressure was good overnight. Objective Data Objective Data Vital Signs: Vital Signs Temp Pulse Resp BP Pulse Ox O2 Del Method O2 Flow Rate 98.2 F 69 20 H 125/49 H 92 Room Air 2 07/15/23 04:07/15/23 04:07/15/23 04:07/15/23 04:07/15/23 04:07/15/23 04:07/14/23 04:21 Oxygen Flow Rate (L/min) 2 Oxygen Delivery Method Room Air Weight: 200 lb 7 oz Body Mass Index (BMI) 37.8 Intake & Output: Intake and Output for Last 24 Hours 07/13/23 07/14/23 07/15/23 23:59 23:59 23:59 Intake Total 2350 / 2550 4177.08 / 4177.08 1300 / 1300 Output Total 200 / 200 Balance 2350 / 2550 4177.08 / 4077.08 1100 / 1100 Lab / Micro Data 07/15/23 06:52 07/15/23 06:52 Labs: Laboratory Results - last 24 hr 07/14/23 06:43: WBC 17.9 H, RBC 4.50, Hgb 12.3, Hct 39.4, MCV 87.6, MCH 27.3, MCHC 31.2 L, RDW Std Deviation 47.3 H, RDW Coeff of Nevin 14.6, Plt Count 180, MPV 11.0, Immature Gran % (Auto) 0.400, Neut % (Auto) 87.6 H, Lymph % (Auto) 3.5 L, [place] % (Auto) 7.8, Eos % (Auto) 0.0, Baso % (Auto) 0.7, Absolute Neuts (auto) 15.7 H, Absolute Lymphs (auto) 0.62 L, Nucleated RBC % 0, Differential Comment SCANNED, Sodium 135 L, Potassium 4.2, Chloride 104, Carbon Dioxide 23.0, Anion Gap 8, BUN 34 H, Creatinine 2.11 H, Estim Creat Clear Calc 23.29, Est GFR (MDRD) Af Amer 29 L, Est GFR (MDRD) Non-Af 24 L, BUN/Creatinine Ratio 16.1, Glucose 250 H, Calcium 8.4 L 07/15/23 06:52: WBC 12.5 H, RBC 3.84 L, Hgb 10.7 L, Hct 33.7 L, MCV 87.8, MCH 27.9, MCHC 31.8 L, RDW Std Deviation 47.7 H, RDW Coeff of Nevin 14.8 H, Plt Count 137 L, MPV 10.7, Immature Gran % (Auto) 0.500, Neut % (Auto) 84.3 H, Lymph % (Auto) 7.3 L, [place] % (Auto) 7.6, Eos % (Auto) 0.1, Baso % (Auto) 0.2, Absolute Neuts (auto) 10.5 H, Absolute Lymphs (auto) 0.91, Nucleated RBC % 0, Sodium 137, Potassium 3.9, Chloride 108 H, Carbon Dioxide 22.0, Anion Gap 7, BUN 41 H, Creatinine 1.87 H, Estim Creat Clear Calc 26.28, Est GFR (MDRD) Af Amer 34 L, Est GFR (MDRD) Non-Af 28 L, BUN/Creatinine Ratio 21.9 H, Glucose 128 H, Calcium 8.1 L Physical Exam Const oriented x3 and no apparent distress Resp normal respiratory effort Cardio regular rate and regular rhythm GI soft to palpation and non-tender Inspection: abdominal distention Assessment & Plan Assessment/Plan (1) HINA (acute kidney injury): PLAN: The patient had HINA which worsened on postoperative day 1 and so yesterday she also became hypotensive. She was given a fluid bolus and her fluid rate was increased overnight. I believe her hemoglobin drop is dilutional from all of the fluid. She is not complaining of much abdominal pain. (2) Acute appendicitis: QUALIFIERS: Acute appendicitis type: unspecified acute appendicitis type Qualified Code(s): K35.80 - Unspecified acute appendicitis PLAN: The patient still reports that she is not passing gas and she seems a little bit distended. I am ordering a KUB to see if she has an ileus. White count is coming down. Continue antibiotics. She will go home on oral antibiotics. If she starts passing flatus and the KUB is not concerning I may discharge her home today. I started her back on her Eliquis today because I believe her drop in hemoglobin is dilutional. Bertram Ibarra MD Pager: [facility] [address] [place] [address], [address] [place] [address] Office:
[2023-07-15 08:51] VITALS: BP 115/46; PULSE 68; RESP 16; TEMP 36.8; O2SAT 93
--- NOTE | 2023-07-15 09:25 | RAD_ITS ---
STUDY: X-RAY - ABDOMEN/PELVIS REASON FOR EXAM: Female, 77 years old. Ileus . Abdominal pain. TECHNIQUE: Single AP view of the abdomen / pelvis. COMPARISON: None. FINDINGS: There is elevation of the right hemidiaphragm. Mild gaseous distention of the colon on the right side. Clips are seen in the region of the cecum. This may represent either prior appendectomy versus colonic biopsy. Fecal material is seen in the left hemicolon down to the rectum. There is no demonstrated free abdominal air. The visualized liver, spleen and kidneys are grossly normal in size and morphology. Normal soft tissue structures. Normal visualized osseous structures. RAD/Abdomen Single View (Portable) IMPRESSION: Gas-filled colon. Electronically Signed: Augustin Ruiz MD at 9:43 EDT ,
[2023-07-15] MEDS: APIXABAN 5 MG TABLET PO (09:39)
[2023-07-15] MEDS: Ciprofloxacin 400 MG/200 ML BAG 200 MG IV (09:39)
--- NOTE | 2023-07-15 10:52 | CASEMGMT ---
[facility] Assessment: Face to Face with pt for initial transition planning/care coordination assessment. RN KOKO introduced self and role at [facility], pt voices understanding and consents to assessment. Pt is A&O x4 and answers all questions appropriately at this time. Pt sitting up in chair with dtr at bedside. Pt agreeable to assessment with dtr present. Care providers, pharmacy, and demographics verified/updated. Admitting Dx: acute appendicitis PCP:Jewell Specialists:Dany, onc; James, uro; Katiana, surgeon Preferred [facility]acy: [facility] Insurance: [employer] [facility] Prescription Benefit: yes LNOK: Francisca Morales, dtr; Kirill Kumar, son Living Arrangements: Pt lives with dtr and granddtrs in a two story home with 4 steps to enter with a rail. Pt reports she is I in ADL's and denies concerns at home. Pt is in a SNF. Transportation: Pt drives self and denies concerns with transportation. DME:[facility] available but does not use HHC/SNF: Denies hx of Pt states no concerns with going home at time of dc. Pt dtr states pt has just been taking her eliquis daily instead of twice daily as ordered d/t being too expensive. TC to [facility], pt last munoz was $126. Pt states she has not ever used a savings card. Provided her with an eliquis savings card and provided her with eliquis patient assistance form. Pt aware that the physician will need to sign this. Pt states no further concerns/needs. CM to follow. Advised pt to ask CM if any further question/concerns/needs arise, voices understanding. Pt Goal: Home Plan: Home [facility] CM
[2023-07-15 11:33] VITALS: BP 135/65; PULSE 71; RESP 16; TEMP 37.3; O2SAT 93
[2023-07-15] MEDS: Bisacodyl 10 MG Suppository RC (12:54)
[2023-07-15] MEDS: 0.9% Saline Lock 10 ML Syringe IV (15:25)
== END 2023-07-15 15:30 | disposition home or self-care (01) | DRG 398 ==
LOC: ED 15:08 → SDC 15:14 → AC 15:15 → SDC 18:17 → MS3 18:17
PROVIDERS: Admitting Provider Surgery; Emergency Provider Emergency Medicine; PCP Internal Medicine; Visit Provider Surgery
PROC: 0DTJ4ZZ Resection of Appendix, Percutaneous Endoscopic Approach (ICD-10-PCS; CPT 44970; principal; 2023-07-13 15:15)
DX: K35.80 Unspecified acute appendicitis (principal); N17.9 Acute kidney failure, unspecified; I10 Essential (primary) hypertension; K80.20 Calculus of gallbladder without cholecystitis without obstruction; I95.81 Postprocedural hypotension; Z80.0 Family history of malignant neoplasm of digestive organs; Z85.3 Personal history of malignant neoplasm of breast; Z86.718 Personal history of other venous thrombosis and embolism; Z88.0 Allergy status to penicillin
CPT/HCPCS: 36415; 36591; 74018; 74177; 80048; 80053; 81001; 83605; 85025; 88304; 93005; 94668; 99284; J7030; A4216; C1760; J0744; J2405

== ENCOUNTER → 2023-07-20 | Outpatient (CLI) | payer MEDICARE, SELFPAY ==
[2023-07-20 18:02] LABS: Absolute Lymphocyte Count 1.58 X10^3/uL (0.83-4.51); Absolute Neutrophil Count 9.6 X10^3/uL (2.0-7.7); Basophil# 0.05 X10^3/uL; Basophil% 0.4 % (0-1); Eosinophil# 0.29 X10^3/uL; Eosinophils% 2.3 % (0-5); Hematocrit 40.9 % (37-47); Lymphocyte # 1.58 X10^3/ul (0.83-4.51); Lymphocyte % 12.5 % (19-41); Mean Corp Hgb Conc 31.8 g/dL (32-36); Mean Corpuscular Hgb 27.5 pg (27.0-32.0); Mean Corpuscular Volume 86.7 fL (81-99); Mean Platelet Vol. 10.2 fl (6.2-12.0); Monocyte# 1.01 X10^3/uL; NRBC Flagged by Analyzer 0 % (0-5); Neutrophil # 9.61 X10^3/uL (2.7-7.7); Neutrophil % 75.7 % (47-70); Platelet Count 298 K/mm3 (150-450); RBC Distribution Width CV 14.8 % (11.6-14.6); RBC Distribution Width SD 47.7 fl (35.1-43.9); Red Blood Count 4.72 M/mm3 (4.2-5.4); White Blood Count 12.7 K/mm3 (4.4-11.0)
[2023-07-20 18:57] LABS: ALB/GLOB Ratio 0.6 RATIO (0.9-2.4); AST(SGOT) 9 U/L (15-37); Alanine Aminotransfer ALT/SGPT 8 U/L (13-56); Albumin, Serum 2.6 g/dL (3.2-5.0); Alkaline Phosphatase 73 U/L (45-117); Anion Gap 6 (5-15); BUN 24 mg/dL (7-18); BUN/Creat Ratio 20.3 RATIO (10-20); Calcium,Total 8.8 mg/dL (8.5-10.1); Chloride 107 mmol/L (98-107); Creatinine, Serum 1.18 mg/dL (0.55-1.02); EST Glomerular Filtration Rate 47 mL/min (>60); Est Glom Filt Rate - Afr Amer 57 mL/min (>60); Globulin 4.2 g/dL (2.2-4.2); Glucose 134 mg/dL (74-106); Potassium 3.4 mmol/L (3.5-5.1); Protein, Total 6.8 g/dL (6.4-8.2); Sodium Level 141 mmol/L (136-145)
== END | disposition home or self-care (01) ==
PROVIDERS: PCP Internal Medicine; Referring Provider Physician Assistant; Visit Provider Physician Assistant
DX: Z91.09 Other allergy status, other than to drugs and biological substances (principal); R06.02 Shortness of breath
CPT/HCPCS: 36415; 80053; 85025

== ENCOUNTER → 2023-08-23 | Outpatient (CLI) | payer MEDICARE, SELFPAY ==
--- NOTE | 2023-08-23 10:46 | ECHODONC_ITS ---
Reason For Study: Non Rheumatic MR, Chemo Procedure This was a 2D Doppler, Color Flow transthoracic echocardiogram. Myocardial strain analysis was performed in this exam to aid in the assessment of cardiac function. Exam performed in department. Left Ventricle Normal LV size. Left ventricular systolic function is normal. The left ventricular ejection fraction is 55 %. Stage 1 diastolic dysfunction. No regional wall motion abnormalities noted. Right Ventricle Normal RV size. Normal systolic function. Atria Normal left atrium. Normal right atrium. Mitral Valve Normal mitral valve. Tricuspid Valve Normal tricuspid valve. Aortic Valve Normal aortic valve. Pulmonic Valve Normal pulmonic valve. Great Vessels Normal aortic root. The pulmonary artery is normal size. Normal inferior vena cava. Pericardium/Pleural No pericardial effusion. MMode/2D Measurements & Calculations LVIDd: 5.0 cm IVSd: 0.91 cm Ao root diam: 3.0 cm LVIDs: 3.3 cm LVPWd: 0.94 cm LA dimension: 3.9 cm RVDd: 3.1 cm FS: 33.1 % LAV(MOD-bp): 44.0 ml LVAd ap4: 24.9 cm2 SV(MOD-sp4): 37.2 ml LAV(MOD-bp) Indexed: 23.3 ml/m2 LVLd ap4: 7.6 cm LAV(MOD-sp2): 44.5 ml EDV(MOD-sp4): 68.2 ml LAV(MOD-sp4): 42.3 ml EDV(sp4-el): 69.6 ml LVAs ap4: 15.1 cm2 LVLs ap4: 6.4 cm ESV(MOD-sp4): 31.0 ml ESV(sp4-el): 30.3 ml EF(MOD-sp4): 54.6 % EF(sp4-el): 56.5 % SV(sp4-el): 39.3 ml LA A4 area: 17.3 cm2 RA A4 area: 13.0 cm2 TAPSE: 1.4 cm Time Measurements MV dec time: 0.26 sec Doppler Measurements & Calculations MV E max chance: 64.4 cm/sec Lat Peak E' Chance: 10.0 cm/sec Med Peak E' Chance: 4.4 cm/sec MV A max chance: 79.4 cm/sec E/E' lat: 6.4 E/E' med: 14.8 MV E/A: 0.81 MV V2 max: 91.8 cm/sec MV P1/2t max chance: 68.1 cm/sec Ao V2 max: 125.6 cm/sec MV max P.4 mmHg MV P1/2t: 76.3 msec Ao max P.3 mmHg MV V2 mean: 43.8 cm/sec MV dec slope: 261.5 cm/sec2 Ao V2 mean: 89.4 cm/sec MV mean P.94 mmHg Ao mean P.6 mmHg MV V2 VTI: 25.1 cm MVA(P1/2t): 2.9 cm2 Ao V2 VTI: 31.1 cm AV (velocity ratio): 0.72 LV V1 max: 104.4 cm/sec PA V2 max: 90.5 cm/sec LV V1 max P.4 mmHg LV V1 mean P.6 mmHg LV V1 mean: 76.2 cm/sec LV V1 VTI: 22.3 cm ECHO/ONC Echo Complete Interpretation Summary Normal LV size. Left ventricular systolic function is normal. The left ventricular ejection fraction is 55 %. Stage 1 diastolic dysfunction. The global longitudinal strain is normal. The global longitudinal strain = -19. 1 % (normal). Ordering Physician: Shahriar Tucker Referring Physician: Michael Corcoran Performed By: Sunil Galvan RCS
== END | disposition home or self-care (01) ==
LOC: CVS 10:45
PROVIDERS: PCP Internal Medicine; Referring Provider Internal Medicine Cardiovascular Disease; Visit Provider Internal Medicine Cardiovascular Disease
DX: I34.0 Nonrheumatic mitral (valve) insufficiency (principal)
CPT/HCPCS: 93306; 93356

== ENCOUNTER 2023-11-10 10:05 | Emergency (ER) | payer MEDICARE, SELFPAY ==
[2023-11-10 10:06] VITALS: BP 127/78; PULSE 73; RESP 18; TEMP 36; O2SAT 96; BMI 36.1
--- NOTE | 2023-11-10 11:21 | EX.ED.DYSGE1 ---
HPI <TYSHAWN Wheat - Last Filed: 11/10/23 13:57> History of Present Illness Chief Complaint: General Illness Narrative Narrative: Patient is a 77-year-old female with history of obesity, history of breast cancer, pulmonary embolus on Eliquis, hypertension, asthma who presents to the emergency department for multiple complaints. Patient states that she has been feeling unwell over the last several days. Patient noticed a rash to her left abdomen, she also has left abdominal pain, as well as constipation. 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 Patient states the biggest concern is her abdomen pain. Patient denies any fever or chills. Patient states that she is straining and still unable to have a bowel movement. She does have history of bowel obstruction she is concerned. Here with her daughter. Denies any fever or chills. PFSH <TYSHAWN Wheat - Last Filed: 11/10/23 13:57> [facility] Medical History Cardiology follow-up encounter Osteopenia with high risk of fracture Colon cancer screening Cataract (lens) fragments in eye following cataract surgery, bilateral Screening for breast cancer Encounter for monitoring cardiotoxic drug therapy Decreased cardiac ejection fraction Encounter for monitoring cardiotoxic drug therapy Port-A-Cath in place Hypokalemia 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 CINV (chemotherapy-induced nausea and vomiting) Encounter for chemotherapy management Left thyroid nodule Encounter for education Wears dentures Wears glasses Anxiety Pulmonary embolism DVT (deep venous thrombosis) Non-smoker History of echocardiogram History of stress test Hypertension Breast cancer, left Abnormal mammogram of left breast Anxiety and depression Breast pain, left Left shoulder pain Encounter for screening for COVID-19 URI (upper respiratory infection) Chest pain Fractures involving multiple body regions Breast lump Blood clot in vein Vision problems Pneumonia Kidney stones H/O emotional problems Chronic bronchitis Asthma Arthritis Environmental allergies Home Medications ?Medication ?Instructions ?Recorded ?Last Taken ?Type albuterol sulfate 90 mcg/actuation 1 - 2 puff inhalation Q4H PRN PRN 12/06/21 Unknown Rx aerosol inhaler (Ventolin HFA) Wheezing ##1 multivitamin 1 tab PO DAILY 07/15/22 07/11/23 History loratadine 10 mg tablet (Claritin) 10 mg PO DAILY PRN allergies 08/26/22 07/17/22 History biotin 1 mg capsule 1 mg PO DAILY 10/29/22 07/11/23 History lidocaine-prilocaine 2.5 %-2.5 % 1 applic topical ONCE PRN port 01/19/23 Unknown Rx topical cream access 30 days #30 grams apixaban 5 mg tablet (Eliquis) See Rx Instructions .Route 04/28/23 05/29/23 Rx .COMPLEX #180 tabs paroxetine HCl 20 mg tablet (Paxil) 20 mg PO DAILY #90 tabs 04/28/23 Unknown Rx Handicap Placard #1 ea 05/24/23 Unknown Rx denosumab 60 mg/mL subcutaneous 60 mg subcut [id number] #1 mL 06/22/23 Unknown Rx syringe (Prolia) Compression arm sleeve 20-30 mmHg #2 ea 06/28/23 Unknown Rx amlodipine 10 mg tablet 10 mg PO DAILY #90 tabs 07/29/23 Unknown Rx atorvastatin 40 mg tablet 40 mg PO DAILY #90 tabs 09/27/23 Unknown Rx anastrozole 1 mg tablet See Rx Instructions .Route 11/09/23 Unknown Rx .COMPLEX #90 tabs magnesium citrate 300 ml PO X1 #1 BOTTLE 11/10/23 Unknown Rx valacyclovir 1 gram tablet 1,000 mg PO TID 7 days #21 tabs 11/10/23 Unknown Rx Allergy/AdvReac Type Severity Reaction Status Date / Time Penicillins Allergy Hives Verified 11/10/23 10:09 Family History Father Alcoholism Asthma Mother Anxiety Blood clot in vein Myocardial infarction Grandmother Blood clot in vein Myocardial infarction Brother Myocardial infarction Aunt Breast cancer Grandmother CVA (cerebral vascular accident) Daughter Suicide attempt Other Colon cancer Surgical History History of appendectomy Hx of left mastectomy History of lymph node dissection of axilla S/P left mastectomy Hx of tubal ligation History of hysterectomy History of tonsillectomy History of shoulder surgery Social History Smoking Status: Never smoker alcohol intake: never substance use type: does not use caffeine: Yes Type: carbonated beverages Number of servings: 2 what type of physical activity do you participate in: none seatbelt use: always do you feel safe at home: Yes ROS <TYSHAWN Wheat - Last Filed: 11/10/23 13:57> ROS ED ROS Narrative Constitutional: Negative for fever, chills, weight loss. Positive for weakness Eyes: Negative for vision loss, vision change, double vision ENT: Negative for any sore throat, ear pain, congestion Cardiovascular: Negative for any chest pain, tightness, palpitations Respiratory: Negative for any cough, sputum production, hemoptysis, dyspnea, dyspnea on exertion, orthopnea Gastrointestinal: Negative for any nausea, vomiting, diarrhea,blood in stool, blood in vomit. Positive for abdominal pain, constipation : Negative for any urinary frequency, dysuria, retention, blood in urine Muscle skeletal: Negative for any neck pain, back pain. Positive left knee pain Neurological: Negative for any headache, syncope, dizziness Skin: Negative for any itching, abrasions, lacerations. Positive for rash to left abdomen Psychiatric: Negative for any depression, anxiety, stress, suicidal ideation, homicidal ideation Hematologic: Negative for any excessive bruising, easy bleeding EXAM <TYSHAWN Wheat - Last Filed: 11/10/23 13:57> Physical Exam Narrative Exam Narrative: Vital signs reviewed. HEET: Head normocephalic atraumatic, TMs clear bilaterally. Posterior pharynx is clear, moist mucous membranes. Nares clear bilaterally. I appreciate no swelling to the right or left side of her face. Oral exam was unremarkable, there is no oral lesions. No swelling, no angioedema. Neck: Supple with no lymphadenopathy or tenderness. No signs of meningismus. Cardiac: Regular rate and rhythm no murmurs gallops or rubs, equal peripheral pulses bilaterally. Respiratory: Lungs clear to auscultation bilaterally. No chest tenderness. Abdomen: Soft, nondistended. No abdominal bruit or pulsatile masses. No hepatosplenomegaly. On the patient's left lower abdomen, patient does have what appears to be shingles to the left lower abdomen. These are small pustules that are painful. They follow the same dermatome. Patient also has pain just under that to the left lower abdomen. Hyperactive bowel sounds. Extremities: No peripheral edema, no signs of gross trauma or deformity. Active full range of motion of all extremities. Patient's knee on my examination on the left was unremarkable. Patient is able to flex and extend. No significant pain. Neuro: Cranial nerves II through XII intact, no focal neurological deficits. Skin: Patient does have rash to the left lower abdomen. This appears to be herpetic in nature. Backs/flank: No CVA tenderness, no midline spinal tenderness, no deformity. Psych: Normal mood and affect. No SI, HI or acute psychosis. Const Vital Signs: 11/10/23 10:06 11/10/23 10:22 11/10/23 12:56 Temperature 96.8 F L Temperature Source Temporal Pulse Rate 73 58 L Respiratory Rate 18 16 Respiratory Effort Normal Non-Labored Respiratory Pattern Normal Blood Pressure 127/78 H 114/45 L Blood Pressure Mean 94 68 Pulse Ox 96 96 Oxygen Delivery Method Room Air Room Air 11/10/23 14:20 Temperature 98.2 F Temperature Source Pulse Rate 67 Respiratory Rate 18 Respiratory Effort Respiratory Pattern Blood Pressure 139/72 H Blood Pressure Mean 94 Pulse Ox 98 Oxygen Delivery Method <Dr. Sabino Whitman MD - Last Filed: 11/10/23 23:28> Physical Exam Const Vital Signs: 11/10/23 10:06 11/10/23 10:22 11/10/23 12:56 Temperature 96.8 F L Temperature Source Temporal Pulse Rate 73 58 L Respiratory Rate 18 16 Respiratory Effort Normal Non-Labored Respiratory Pattern Normal Blood Pressure 127/78 H 114/45 L Blood Pressure Mean 94 68 Pulse Ox 96 96 Oxygen Delivery Method Room Air Room Air 11/10/23 14:20 Temperature 98.2 F Temperature Source Pulse Rate 67 Respiratory Rate 18 Respiratory Effort Respiratory Pattern Blood Pressure 139/72 H Blood Pressure Mean 94 Pulse Ox 98 Oxygen Delivery Method [facility] <TYSHAWN Wheat - Last Filed: 11/10/23 13:57> [facility] Lab Data Labs: Laboratory Results - last 24 hr 11/10/23 11/10/23 11:55 12:05 WBC 8.7 RBC 4.86 Hgb 13.1 Hct 40.8 MCV 84.0 MCH 27.0 MCHC 32.1 RDW Std Deviation 43.4 RDW Coeff of Nevin 14.2 Plt Count 192 MPV 9.9 Immature Gran % (Auto) 0.300 Neut % (Auto) 67.4 Lymph % (Auto) 21.4 [place] % (Auto) 7.7 Eos % (Auto) 2.6 Baso % (Auto) 0.6 Absolute Neuts (auto) 5.9 Absolute Lymphs (auto) 1.87 Nucleated RBC % 0 Sodium 140 Potassium 3.9 Chloride 107 Carbon Dioxide 29.0 Anion Gap 4 L BUN 22 H Creatinine 1.19 H Estim Creat Clear Calc 40.62 Est GFR (MDRD) Af Amer 57 L Est GFR (MDRD) Non-Af 47 L BUN/Creatinine Ratio 18.5 Glucose 120 H Calcium 8.9 Total Bilirubin 0.70 AST 13 L ALT 14 Alkaline Phosphatase 102 Total Protein 7.2 Albumin 3.3 Globulin 3.9 Albumin/Globulin Ratio 0.8 L Lipase 33 Urine Color Yellow Urine Clarity Sl. Cloudy Urine pH 8.0 Ur Specific [place] 1.010 Urine Protein 15 H Urine Glucose (UA) Normal Urine Ketones Negative Urine Occult Blood 150 H Urine Nitrite Negative Urine Bilirubin Negative Urine Urobilinogen Normal Ur Leukocyte Esterase 25 H Urine RBC 0-5 SEEN Urine WBC 0-5 SEEN Ur Squamous Epith Cells 0-5 SEEN Urine Bacteria 0 SEEN Urine Mucus 0 SEEN Radiography Diagnostic Testing: Clinical Impression(s) from Imaging Studies Abdomen/Pelvis CT 11/10/23 11:25 IMPRESSION: Cholelithiasis with mild gallbladder wall edema, which can be seen with acute cholecystitis. Moderate stool in the colon. Colonic diverticulosis without acute diverticulitis. Mildly enlarged left inguinal lymph node, nonspecific. Electronically Signed: Jess Downey MD at 13:14 EDT , Treatment and Re-Evaluation :: Differential diagnosis includes however is not limited to: Shingles, sequelae of shingles, diverticulitis, bowel obstruction, constipation Patient appears to be in no obvious distress, vital signs are stable, patient is nontoxic-appearing. Presenting to the emergency department for multiple complaints. After speaking with the patient, the biggest concern is the abdominal pain and constipation. Patient does have a shingles-like rash to the left lower abdomen. She will be treated for this. However the pain in her abdomen is underneath the shingles more internal. Patient will receive basic laboratory values, CT scan of the abdomen pelvis. Patient received IV fluids, and will be reevaluated. All radiologic examinations were read, reviewed by the emergency department attending. From these reads, a plan of care will be put in place. Patient CBC was unremarkable, chemistries showed slightly elevated creatinine 1.19 however this is chronic. Glucose was unremarkable. Patient's lipase was negative. Patient's urinalysis was negative for any infection. CT scan of the abdomen pelvis shows cholelithiasis, with mild gallbladder wall edema, this can be seen with acute cholecystitis, moderate stool in the colon. Diverticulosis without acute diverticulitis. On reevaluation, the patient was comfortable, I did perform a repeat evaluation, patient had no pain to the right upper quadrant. At this time, patient will be treated with magnesium citrate for her constipation, patient will also be given 1 week of valacyclovir for the shingles-like rash to the left abdomen. She is instructed to follow-up with her PCP. She is happy with the plan of care, all questions answered, patient stable for discharge. <Dr. Sabino Whitman MD - Last Filed: 11/10/23 23:28> [facility] Narrative Medical decision making narrative: I have personally performed a face to face assessment of the patient and have reviewed the BROOKE Note. I performed a substantive portion of the visit including all aspects of the following. My gresham findings include: History is pain in the left lower quadrant, off-and-on for the past week or so, and trouble having bowel movements, feels like she is constipated. She has tried enemas, she had some loose stool 5 days ago when she tried that but nothing since. She also noticed a rash in her abdomen yesterday in the left lower quadrant but states although it is sore, the pain she is experiencing is in a different area more distal to this. She denies any bright red blood per rectum. No nausea or vomiting. Exam is well-appearing, vesicular erythematous mildly tender rash in the left lower quadrant, it does not past midline or go to it it, and it does not go around anywhere else, just a patch that is about 6 cm wide. There is no associated induration or abscess. Distal to this she is tender left lower quadrant without guarding or rebound. Rest of her abdomen is benign and nontender. No CVA tenderness. Medical Decison Making Labs and CT abdomen/pelvis to evaluate for other complications such as diverticulitis or bowel obstruction which is thought to be less likely since she has no nausea or vomiting, may just be constipation, if CT negative will offer treatment. With regards to the rash less likely to be zoster given its localized area although the appearance is similar. It may be herpetic marilyn we may try acyclovir/valacyclovir and have her follow-up. I reviewed the CT images and the report which I agree with, it is negative for anything acute with regards to the left lower quadrant. There was some incidental gallbladder findings which we do not think are related to the patient's current symptoms, her white blood count is normal liver enzymes are normal and we do not think clinically she has acute cholecystitis which we discussed with her. Other additions or changes: [None] Lab Data Labs: Laboratory Results - last 24 hr 11/10/23 11/10/23 11:55 12:05 WBC 8.7 RBC 4.86 Hgb 13.1 Hct 40.8 MCV 84.0 MCH 27.0 MCHC 32.1 RDW Std Deviation 43.4 RDW Coeff of Nevin 14.2 Plt Count 192 MPV 9.9 Immature Gran % (Auto) 0.300 Neut % (Auto) 67.4 Lymph % (Auto) 21.4 [place] % (Auto) 7.7 Eos % (Auto) 2.6 Baso % (Auto) 0.6 Absolute Neuts (auto) 5.9 Absolute Lymphs (auto) 1.87 Nucleated RBC % 0 Sodium 140 Potassium 3.9 Chloride 107 Carbon Dioxide 29.0 Anion Gap 4 L BUN 22 H Creatinine 1.19 H Estim Creat Clear Calc 40.62 Est GFR (MDRD) Af Amer 57 L Est GFR (MDRD) Non-Af 47 L BUN/Creatinine Ratio 18.5 Glucose 120 H Calcium 8.9 Total Bilirubin 0.70 AST 13 L ALT 14 Alkaline Phosphatase 102 Total Protein 7.2 Albumin 3.3 Globulin 3.9 Albumin/Globulin Ratio 0.8 L Lipase 33 Urine Color Yellow Urine Clarity Sl. Cloudy Urine pH 8.0 Ur Specific [place] 1.010 Urine Protein 15 H Urine Glucose (UA) Normal Urine Ketones Negative Urine Occult Blood 150 H Urine Nitrite Negative Urine Bilirubin Negative Urine Urobilinogen Normal Ur Leukocyte Esterase 25 H Urine RBC 0-5 SEEN Urine WBC 0-5 SEEN Ur Squamous Epith Cells 0-5 SEEN Urine Bacteria 0 SEEN Urine Mucus 0 SEEN Radiography Diagnostic Testing: Clinical Impression(s) from Imaging Studies Abdomen/Pelvis CT 11/10/23 11:25 IMPRESSION: Cholelithiasis with mild gallbladder wall edema, which can be seen with acute cholecystitis. Moderate stool in the colon. Colonic diverticulosis without acute diverticulitis. Mildly enlarged left inguinal lymph node, nonspecific. Electronically Signed: Jess Downey MD at 13:14 EDT , Discharge Plan Triage Chief Complaint: General Illness ED Midlevel Provider: Emeka Morales ED Provider: Sabino Whitman Dx/Rx/DC Orders Clinical Impression: Acute constipation, Herpes simplex infection of skin, Abdominal pain, LLQ Instructions: Abdominal Pain, ED Constipation (Adult), ED Shingles (Herpes Zoster) Prescriptions: New magnesium citrate Solution 300 ml PO X1 Qty: 1 0RF valacyclovir 1 gram tablet 1,000 mg PO TID 7 Days Qty: 21 0RF No Action loratadine [Claritin] 10 mg tablet 10 mg PO DAILY PRN (Reason: allergies) multivitamin Tablet 1 tab PO DAILY biotin 1 mg capsule 1 mg PO DAILY Eliquis 5 mg tablet See Rx Instructions .ROUTE .COMPLEX Qty: 180 1RF Dose Instruction: Take 1 tablet by mouth twice daily Patient Comments: stop 3 days prior to procedure Rx Instructions: Take 1 tablet by mouth twice daily paroxetine HCl [Paxil] 20 mg tablet 20 mg PO DAILY Qty: 90 3RF amlodipine 10 mg tablet 10 mg PO DAILY Qty: 90 3RF albuterol sulfate [Ventolin HFA] 90 mcg/actuation HFA aerosol inhaler 1 - 2 puff inhalation Q4H PRN PRN (Reason: Wheezing) Qty: 1 0RF Patient Comments: Patient uses prn, but hasn't used in two years. Rx Instructions: may substitute for different brand of albuterol if needed lidocaine-prilocaine 2.5-2.5 % cream 1 applic topical ONCE PRN (Reason: port access) 30 Days Qty: 30 2RF (DME) Handicap Placard See Rx Instructions .ROUTE .MEDSUPPLY Qty: 1 0RF Rx Instructions: As directed, length of time 3 years Prolia 60 mg/mL syringe 60 mg subcut [id number] Qty: 1 2RF Patient Comments: Patient has not started yet, bu will start it. (DME) Compression arm sleeve 20-30 mmHg See Rx Instructions .Route .MEDSUPPLY Qty: 2 4RF Rx Instructions: As directed atorvastatin 40 mg tablet 40 mg PO DAILY Qty: 90 4RF anastrozole 1 mg tablet See Rx Instructions .ROUTE .COMPLEX Qty: 90 3RF Dose Instruction: Take 1 tablet by mouth once daily Rx Instructions: Take 1 tablet by mouth once daily Primary Care Provider: Michael Corcoran Referrals: Michael Corcoran MD [Primary Care Provider] - Activity Restrictions/Additional Instructions: Use of the valacyclovir 3 times a day. Please follow-up with your PCP. The magnesium citrate, you need to drink half the bottle, wait 4 hours, if no relief during the rest of the bottle. Print Language: Syriac Disposition Disposition: Home, Self Care Discharge Date/Time: 11/10/23 14:27
--- NOTE | 2023-11-10 11:25 | CT_ITS ---
HISTORY: LLQ abdominal pain. TECHNIQUE: Helically acquired images were obtained of the abdomen and pelvis after the intravenous administration of 100mL Isovue-370. A radiation dose optimization technique was used for this scan. 427 images. COMPARISON: 07/13/2023. FINDINGS: LOWER CHEST: Left mastectomy with a subcentimeter lymph node again seen in the left chest. Lung bases unremarkable. BOWEL: Bowel nondilated. Interval appendectomy. Moderate stool in the colon. Colonic diverticulosis without focal inflammatory change observed. PERITONEUM: No significant ascites. LIVER: No enhancing mass. GALLBLADDER/BILIARY TREE: Multiple large gallstones with mild gallbladder wall edema. SPLEEN/PANCREAS: Homogeneous and nonenlarged. 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 KIDNEYS: No hydronephrosis. 4 cm right renal cyst again seen. Left renal sinus cysts. VESSELS: No abdominal aortic aneurysm. Mild atherosclerosis of the abdominal aorta and its major branches. Chronic mild calcifications of the left external iliac and femoral veins. PELVIC ORGANS: Absent uterus. ABDOMINAL WALL: Mild anterior scarring. 1.7 cm left inguinal lymph node. BONES: Degenerative change. CT/Abdomen/Pelvis W IV Cont ONLY IMPRESSION: Cholelithiasis with mild gallbladder wall edema, which can be seen with acute cholecystitis. Moderate stool in the colon. Colonic diverticulosis without acute diverticulitis. Mildly enlarged left inguinal lymph node, nonspecific. Electronically Signed: Jess Downey MD at 13:14 EDT ,
[2023-11-10 12:01] LABS: Bacteria 0 SEEN /hpf (None Seen); Mucous, Urine 0 SEEN /hpf (<or=2+)
[2023-11-10 12:06] LABS: Color, Urine Yellow (Yellow); Glucose, Dipstick Normal (Normal); Ketone-Dipstick Negative (Negative); Leukocyte Esterase-Dipstick 25 /ul (Negative); Nitrite-Dipstick Negative (Negative); Occult Blood-Urine 150 /ul (Negative); Protein-Dipstick 15 mg/dl (Negative); Urine Bilirubin Dipstick Negative (Negative); Urine Clarity Sl. Cloudy (Clear); Urine Urobilinogen Normal (Normal)
[2023-11-10] MEDS: 0.9% Normal Saline (1000mL) 1,000 ML 999 ML IV (12:06)
[2023-11-10] MEDS: fentaNYL 100 MCG/2 ML Ampul 50 MCG IV (12:06)
[2023-11-10 12:17] LABS: Absolute Lymphocyte Count 1.87 X10^3/uL (0.83-4.51); Absolute Neutrophil Count 5.9 X10^3/uL (2.0-7.7); Basophil# 0.05 X10^3/uL; Basophil% 0.6 % (0-1); Eosinophil# 0.23 X10^3/uL; Eosinophils% 2.6 % (0-5); Hematocrit 40.8 % (37-47); Hemoglobin 13.1 g/dL (12.0-15.0); Lymphocyte # 1.87 X10^3/ul (0.83-4.51); Lymphocyte % 21.4 % (19-41); Mean Corp Hgb Conc 32.1 g/dL (32-36); Mean Platelet Vol. 9.9 fl (6.2-12.0); Monocyte# 0.67 X10^3/uL; Monocyte% 7.7 % (0-10); NRBC Flagged by Analyzer 0 % (0-5); Neutrophil # 5.88 X10^3/uL (2.7-7.7); Neutrophil % 67.4 % (47-70); Platelet Count 192 K/mm3 (150-450); RBC Distribution Width CV 14.2 % (11.6-14.6); RBC Distribution Width SD 43.4 fl (35.1-43.9); Red Blood Count 4.86 M/mm3 (4.2-5.4); White Blood Count 8.7 K/mm3 (4.4-11.0)
[2023-11-10 12:25] LABS: Red Blood Cells-Urine 0-5 SEEN /hpf (0-5); Squamous Epithelial Cells - UA 0-5 SEEN /hpf (5-10); White Blood Cells 0-5 SEEN /hpf (0-5)
[2023-11-10 12:30] LABS: ALB/GLOB Ratio 0.8 RATIO (0.9-2.4); AST(SGOT) 13 U/L (15-37); Alanine Aminotransfer ALT/SGPT 14 U/L (13-56); Albumin, Serum 3.3 g/dL (3.2-5.0); Alkaline Phosphatase 102 U/L (45-117); Anion Gap 4 (5-15); BUN 22 mg/dL (7-18); BUN/Creat Ratio 18.5 RATIO (10-20); Calcium,Total 8.9 mg/dL (8.5-10.1); Chloride 107 mmol/L (98-107); Creatinine, Serum 1.19 mg/dL (0.55-1.02); EST Glomerular Filtration Rate 47 mL/min (>60); Est Glom Filt Rate - Afr Amer 57 mL/min (>60); Estimated Creatinine Clearance 40.62 ml/min; Globulin 3.9 g/dL (2.2-4.2); Glucose 120 mg/dL (74-106); Lipase 33 U/L (13-75); Potassium 3.9 mmol/L (3.5-5.1); Protein, Total 7.2 g/dL (6.4-8.2); Sodium Level 140 mmol/L (136-145)
[2023-11-10 12:56] VITALS: BP 114/45; PULSE 58; RESP 16; O2SAT 96
[2023-11-10 14:20] VITALS: BP 139/72; PULSE 67; RESP 18; TEMP 36.8; O2SAT 98
== END 2023-11-10 14:27 | disposition home or self-care (01) ==
PROVIDERS: Nurse Practitioner; Emergency Provider Emergency Medicine; PCP Internal Medicine; Visit Provider Emergency Medicine
DX: K59.00 Constipation, unspecified (principal); I10 Essential (primary) hypertension; R10.32 Left lower quadrant pain; Z85.3 Personal history of malignant neoplasm of breast; Z86.718 Personal history of other venous thrombosis and embolism; Z79.01 Long term (current) use of anticoagulants; J45.909 Unspecified asthma, uncomplicated; Z98.51 Tubal ligation status; Z90.710 Acquired absence of both cervix and uterus; B00.9 Herpesviral infection, unspecified
CPT/HCPCS: 36591; 74177; 80053; 81001; 83690; 85025; 96361; 96374; 99283; J7030; Q9967; A4216

== ENCOUNTER → 2024-01-17 | Outpatient (CLI) | payer MEDICARE, SELFPAY ==
--- NOTE | 2024-01-17 10:42 | BI_ITS ---
MAMMOGRAPHY - UNILATERAL SCREENING: RIGHT BREAST REASON FOR EXAM: Female, 78 years old. Routine annual screening examination (unilateral). PERTINENT HISTORY: Personal history of breast cancer. Prior left mastectomy. Aunt with breast cancer. TECHNIQUE: Digital unilateral breast phani (3D mammographic acquisition) in the CC and MLO projections. 2-D mediolateral oblique (MLO) and craniocaudad (CC) views of both breasts were obtained. CAD: Full Field Digital Mammography with Computer Added Detection was performed. COMPARISON: Comparison is made with prior study January 10, 2023 and October 05, 2021. FINDINGS: Breast Composition: There are scattered areas of fibroglandular density. There are no dominant masses or suspicious calcifications. No other significant abnormalities are identified. There has been no significant change since the prior study. BI/SCREEN MAMM (CAD) W/PHANI UNI R IMPRESSION: Stable unilateral screening mammogram. Yearly follow-up mammogram recommended. (A) ASSESSMENT CATEGORY: BIRADS Category 1: Negative. A letter regarding these results will be sent to the patient by the facility within 30 days. Approximately 10% of breast cancers are not detected by mammography. A normal mammogram should not delay biopsy of a clinically suspicious abnormality. [id number] Electronically Signed: Augustin Ruiz MD at 12:16 EDT ,
== END | disposition home or self-care (01) ==
LOC: OPBI 10:42
PROVIDERS: PCP Internal Medicine; Referring Provider Internal Medicine Medical Oncology; Visit Provider Internal Medicine Medical Oncology
DX: Z12.31 Encounter for screening mammogram for malignant neoplasm of breast (principal); Z80.3 Family history of malignant neoplasm of breast; Z85.3 Personal history of malignant neoplasm of breast
CPT/HCPCS: 77063; 77067

== ENCOUNTER → 2024-07-11 | Outpatient (CLI) | payer MEDICARE, SELFPAY ==
[2024-07-11 20:25] LABS: Anion Gap 12 (5-15); BUN 32 mg/dL (4-19); BUN/Creat Ratio 24.5 RATIO (10-20); Calcium,Total 9.1 mg/dL (7.6-11.0); Carbon Dioxide 22.8 mmol/L (21.0-32.0); Chloride 105 mmol/L (98-108); EST Glomerular Filtration Rate 42 (>60); Glucose 124 mg/dL (70-99); Potassium 4.4 mmol/L (3.3-5.1); Sodium Level 140 mmol/L (133-145)
[2024-07-11 20:36] LABS: Cholesterol 171 mg/dL (<=200); High Density Lipoprotein 57 mg/dL; Low Density Lipoprotein Calc. 91 mg/dL; Triglycerides 116 mg/dL; Very Low Density Lipoprotein 23 mg/dL (5-40); cholesterol:hdl ratio screen 2.99
== END | disposition home or self-care (01) ==
LOC: BIMLAB 11:43
PROVIDERS: PCP Internal Medicine; Referring Provider Internal Medicine; Visit Provider Internal Medicine
DX: I10 Essential (primary) hypertension (principal); R73.03 Prediabetes
CPT/HCPCS: 36415; 80048; 80061; 83036

== ENCOUNTER 2024-08-10 17:00 | Emergency (ER) | payer MEDICARE, SELFPAY ==
[2024-08-10 17:01] VITALS: BP 136/66; PULSE 67; RESP 16; TEMP 36.8; O2SAT 97
--- NOTE | 2024-08-10 17:35 | EX.ED.DYSGE1 ---
HPI History of Present Illness Chief Complaint: Shortness of Breath Narrative Narrative: 78-year-old female past medical history of recovery from breast carcinoma, DVT/PE on Eliquis presents with malaise and fatigue that she has had all day. She denies any fevers or chills, no cough but states that she feels short of breath. She states that yesterday, she was doing multiple tasks, and yesterday evening felt fatigued and started feeling bad then. She states that even after she woke up today, she is felt very tired. She denies any chest pain, no dysuria or hematuria, no nausea or vomiting, no diarrhea, no exacerbating or alleviating factors. She denies black stool. She states she feels short of breath, tired, and fatigued. [facility] Medical History Pain of left lower extremity Shingles Flu vaccine need Venous insufficiency of both lower extremities Cardiology follow-up encounter Osteopenia with high risk of fracture Colon cancer screening Cataract (lens) fragments in eye following cataract surgery, bilateral Screening for breast cancer Encounter for monitoring cardiotoxic drug therapy Decreased cardiac ejection fraction Encounter for monitoring cardiotoxic drug therapy Port-A-Cath in place Hypokalemia 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 CINV (chemotherapy-induced nausea and vomiting) Encounter for chemotherapy management Left thyroid nodule Encounter for education Wears dentures Wears glasses Anxiety Pulmonary embolism DVT (deep venous thrombosis) Non-smoker History of echocardiogram History of stress test Hypertension Breast cancer, left Abnormal mammogram of left breast Anxiety and depression Breast pain, left Left shoulder pain Encounter for screening for COVID-19 URI (upper respiratory infection) Chest pain Fractures involving multiple body regions Breast lump Blood clot in vein Vision problems Pneumonia Kidney stones H/O emotional problems Chronic bronchitis Asthma Arthritis Environmental allergies Home Medications ?Medication ?Instructions ?Recorded ?Last Taken ?Type albuterol sulfate 90 mcg/actuation 1 - 2 puff inhalation Q4H PRN PRN 12/06/21 Unknown Rx aerosol inhaler (Ventolin HFA) Wheezing ##1 multivitamin 1 tab PO DAILY 07/15/22 07/11/23 History loratadine 10 mg tablet (Claritin) 10 mg PO DAILY PRN allergies 08/26/22 07/17/22 History biotin 1 mg capsule 1 mg PO DAILY 10/29/22 07/11/23 History lidocaine-prilocaine 2.5 %-2.5 % 1 applic topical ONCE PRN port 01/19/23 Unknown Rx topical cream access 30 days #30 grams Handicap Placard #1 ea 05/24/23 Unknown Rx Compression arm sleeve 20-30 mmHg #2 ea 06/28/23 Unknown Rx amlodipine 10 mg tablet 10 mg PO DAILY #90 tabs 07/29/23 Unknown Rx atorvastatin 40 mg tablet 40 mg PO DAILY #90 tabs 09/27/23 Unknown Rx anastrozole 1 mg tablet See Rx Instructions .Route 11/09/23 Unknown Rx .COMPLEX #90 tabs magnesium citrate 300 ml PO X1 #1 BOTTLE 11/10/23 Unknown Rx compress.stocking,knee,reg,lrg #2 ea 01/12/24 Unknown Rx denosumab 60 mg/mL subcutaneous 60 mg subcut [id number] #1 mL 01/17/24 Unknown Rx syringe (Prolia) paroxetine HCl 20 mg tablet (Paxil) 20 mg PO DAILY #90 tabs 05/18/24 Unknown Rx apixaban 5 mg tablet (Eliquis) See Rx Instructions .Route 07/11/24 Unknown Rx .COMPLEX #60 tabs Allergy/AdvReac Type Severity Reaction Status Date / Time Penicillins Allergy Hives Verified 08/10/24 17:04 Family History Father Alcoholism Asthma Mother Anxiety Blood clot in vein Myocardial infarction Grandmother Blood clot in vein Myocardial infarction Brother Myocardial infarction Aunt Breast cancer Grandmother CVA (cerebral vascular accident) Daughter Suicide attempt Other Colon cancer Surgical History History of appendectomy Hx of left mastectomy History of lymph node dissection of axilla S/P left mastectomy Hx of tubal ligation History of hysterectomy History of tonsillectomy History of shoulder surgery Social History Smoking Status: Never smoker alcohol intake: never substance use type: does not use caffeine: Yes Type: carbonated beverages Number of servings: 2 what type of physical activity do you participate in: none seatbelt use: always do you feel safe at home: Yes ROS ROS ED ROS Narrative Constitutional: No fever, no chills. Positive malaise and fatigue. HEENT: No sore throat. No neck pain. No loss of vision. No rhinorrhea. Cardiovascular: No chest pain. No palpitations. No pedal edema. Respiratory: No cough, positive shortness of breath. Abdominal: No abdominal pain. No nausea. No vomiting. Genitourinary: No dysuria. No hematuria. Musculoskeletal: No myalgias. No arthralgias. Neurologic: No headaches. No dizziness. No lightheadedness. EXAM Physical Exam Narrative Exam Narrative: Afebrile. Vital signs noted. Nontoxic-appearing. Cardiovascular examination reveals a regular rate and rhythm. Lungs are clear to auscultation bilaterally. No wheezing or stridor. Moving a good amount of air. Abdomen is soft, nontender, with positive bowel sounds. No guarding or rebound. Neurological examination nonfocal, nonlateralizing. Const Vital Signs: 08/10/24 17:01 08/10/24 17:19 08/10/24 17:51 Temperature 98.3 F Temperature Source Oral Pulse Rate 67 60 Respiratory Rate 16 18 Respiratory Effort Short of Breath Respiratory Depth Normal Respiratory Pattern Normal Blood Pressure 136/66 H 122/53 H Blood Pressure Mean 89 76 Pulse Ox 97 95 Oxygen Delivery Method Room Air Room Air 08/10/24 18:29 Temperature Temperature Source Pulse Rate 61 Respiratory Rate 18 Respiratory Effort Respiratory Depth Respiratory Pattern Blood Pressure 128/64 H Blood Pressure Mean 85 Pulse Ox 98 Oxygen Delivery Method MDM MDM MDM Narrative Medical decision making narrative: The differential diagnosis includes but not limited to dehydration versus other electrolyte imbalance versus anemia requiring transfusion. She may have an infectious cause of her malaise and fatigue including pneumonia but history and physical does not support this as she does not have a fever or cough. I have lower suspicion for pulmonary embolism as she is on Eliquis and has been for quite some time and has been compliant with her medication. Hence I do not feel D-dimer or CTA of the chest is indicated. I will obtain a urinalysis and basic blood work as well. EKG was obtained and interpreted by myself independently as normal sinus rhythm at [address] changes. No STEMI. Is being read as a junctional rhythm, but I do see P waves on the rhythm strip in V1. She is not having chest pain so I do not feel troponins are indicated. I reviewed her laboratory work and she has normal white count of 9.1 with hemoglobin 13.2, hematocrit 39.9, platelet count 203. CMP shows glucose 113 with BUN of 30 and creatinine 1.49. When compared to prior labs she has history of chronic kidney disease. Sodium normal at 142 potassium 4.1. No dehydration. LFTs are grossly unremarkable. Urinalysis shows 5-10 WBCs, but she is not having dysuria. I do not feel antibiotics are indicated so I will be sent for culture. Chest x-ray in 1 view interpreted by myself independently shows no evidence of pneumonia or pneumothorax. I reviewed the radiology report which confirms my independent interpretation. Repeat examination at approximately 1940 shows her to be slightly improved. She feels well and is motivated for discharge. At this point in time, I am unsure as to the cause of her reported shortness of breath and fatigue, but I feel she can be discharged and that she does not require observation or admission. She will follow-up with her primary care provider. Return instructions to the emergency department were reviewed. Disposition is discharged home in stable condition. History & Record Review Discussion w/independent historian: Patient and Family Additional record(s) reviewed:: Prior labs (Chronically elevated creatinine.) Lab Data Attestation: I reviewed the patient's lab results. Labs: Laboratory Results - last 24 hr 08/10/24 08/10/24 17:17 18:25 WBC 9.1 RBC 4.68 Hgb 13.2 Hct 39.9 MCV 85.3 MCH 28.2 MCHC 33.1 RDW Std Deviation 43.9 RDW Coeff of [place]evin 14.1 Plt Count 203 MPV 10.7 Immature Gran % (Auto) 0.300 Neut % (Auto) 63.0 Lymph % (Auto) 24.7 [place] % (Auto) 9.2 Eos % (Auto) 2.4 Baso % (Auto) 0.4 Absolute Neuts (auto) 5.7 Absolute Lymphs (auto) 2.24 Nucleated RBC % 0 Sodium 142 Potassium 4.1 Chloride 108 Carbon Dioxide 22.6 Anion Gap 12 BUN 30 H Creatinine 1.49 H Est GFR (MDRD) Non-Af 36 L BUN/Creatinine Ratio 20.0 Glucose 113 H Calcium 8.6 Total Bilirubin 0.38 AST 18 ALT 10 Alkaline Phosphatase 77 Total Protein 6.7 Albumin 3.9 Globulin 2.8 Albumin/Globulin Ratio 1.4 Urine Color Yellow Urine Clarity Clear Urine pH 6.0 Ur Specific [place] 1.020 Urine Protein 30 H Urine Glucose (UA) Normal Urine Ketones Negative Urine Occult Blood Negative Urine Nitrite Negative Urine Bilirubin 1 H Urine Urobilinogen 1 H Ur Leukocyte Esterase 100 H Urine RBC 0 SEEN Urine WBC 5-10 SEEN Ur Squamous Epith Cells 0-5 SEEN Urine Bacteria 2+ Hyaline Casts 0-5 SEEN Urine Mucus 1+ Radiography Chest X-Ray - ED: 1 View, Read by ED Physician, Read by Radiologist and Normal Diagnostic Testing: Clinical Impression(s) from Imaging Studies Chest X-Ray 08/10/24 17:50 IMPRESSION: No Acute Findings. Reading Location: [facility] [place] Discharge Plan Triage Chief Complaint: Shortness of Breath ED Provider: Marcin Boyer Dx/Rx/DC Orders Clinical Impression: Generalized weakness, SOB (shortness of breath), Malaise and fatigue Instructions: ED Dyspnea, ED Weakness Uncertain Cause Prescriptions: No Action loratadine [Claritin] 10 mg tablet 10 mg PO DAILY PRN (Reason: allergies) multivitamin Tablet 1 tab PO DAILY biotin 1 mg capsule 1 mg PO DAILY amlodipine 10 mg tablet 10 mg PO DAILY Qty: 90 3RF (DME) compress.stocking,knee,reg,lrg Misc See Rx Instructions .MEDSUPPLY Qty: 2 1RF Rx Instructions: wear daily for venous insufficiency 20-30 mmHg Prolia 60 mg/mL syringe 60 mg subcut [id number] Qty: 1 2RF Patient Comments: Patient has not started yet, bu will start it. Eliquis 5 mg tablet See Rx Instructions .ROUTE .COMPLEX Qty: 60 3RF Dose Instruction: Take 1 tablet by mouth twice daily Patient Comments: stop 3 days prior to procedure Rx Instructions: Take 1 tablet by mouth twice daily albuterol sulfate [Ventolin HFA] 90 mcg/actuation HFA aerosol inhaler 1 - 2 puff inhalation Q4H PRN PRN (Reason: Wheezing) Qty: 1 0RF Patient Comments: Patient uses prn, but hasn't used in two years. Rx Instructions: may substitute for different brand of albuterol if needed magnesium citrate Solution 300 ml PO X1 Qty: 1 0RF lidocaine-prilocaine 2.5-2.5 % cream 1 applic topical ONCE PRN (Reason: port access) 30 Days Qty: 30 2RF (DME) Handicap Placard See Rx Instructions .ROUTE .MEDSUPPLY Qty: 1 0RF Rx Instructions: As directed, length of time 3 years (DME) Compression arm sleeve 20-30 mmHg See Rx Instructions .Route .MEDSUPPLY Qty: 2 4RF Rx Instructions: As directed atorvastatin 40 mg tablet 40 mg PO DAILY Qty: 90 4RF anastrozole 1 mg tablet See Rx Instructions .ROUTE .COMPLEX Qty: 90 3RF Dose Instruction: Take 1 tablet by mouth once daily Rx Instructions: Take 1 tablet by mouth once daily paroxetine HCl [Paxil] 20 mg tablet 20 mg PO DAILY Qty: 90 1RF Primary Care Provider: Michael Corcoran Referrals: Michael Corcoran MD [Primary Care Provider] - 3-5 Days if not improving Activity Restrictions/Additional Instructions: Follow-up with your primary care provider. Return with fever, new or worsening symptoms. Drink plenty of oral fluids. Rest at home. Print Language: Mexican Disposition Disposition: Home, Self Care
--- NOTE | 2024-08-10 17:50 | RAD_ITS ---
PROCEDURE: CHEST 1 VIEW (PORTABLE) 08/10/2024 REASON FOR EXAM: SHORTNESS OF BREATH TECHNIQUE: Frontal view of the chest. COMPARISON: 12/06/2021 FINDINGS: Hardware: Right internal jugular chest port. Status post left axillary lymph node dissection. Heart: Cardiac and mediastinal contours are stable. Lungs: The lungs are clear. Elevated right hemidiaphragm. Bones: The bones are unremarkable. Other: RAD/Chest 1 View (Portable) IMPRESSION: No Acute Findings. Reading Location: [id number]
[2024-08-10 17:51] VITALS: BP 122/53; PULSE 60; RESP 18; O2SAT 95
[2024-08-10] MEDS: 0.9% Normal Saline (1000mL) 1,000 ML 999 ML IV (17:51)
[2024-08-10 18:00] LABS: Absolute Lymphocyte Count 2.24 X10^3/uL (0.83-4.51); Absolute Neutrophil Count 5.7 X10^3/uL (2.0-7.7); Basophil# 0.04 X10^3/uL; Basophil% 0.4 % (0-1); Eosinophil# 0.22 X10^3/uL; Eosinophils% 2.4 % (0-5); Hematocrit 39.9 % (37-47); Hemoglobin 13.2 g/dL (12.0-15.0); Lymphocyte # 2.24 X10^3/ul (0.83-4.51); Lymphocyte % 24.7 % (19-41); Mean Corp Hgb Conc 33.1 g/dL (32-36); Mean Corpuscular Hgb 28.2 pg (27.0-32.0); Mean Corpuscular Volume 85.3 fL (81-99); Mean Platelet Vol. 10.7 fl (6.2-12.0); Monocyte# 0.83 X10^3/uL; Monocyte% 9.2 % (0-10); NRBC Flagged by Analyzer 0 % (0-5); Platelet Count 203 K/mm3 (150-450); RBC Distribution Width CV 14.1 % (11.6-14.6); RBC Distribution Width SD 43.9 fl (35.1-43.9); Red Blood Count 4.68 M/mm3 (4.2-5.4); White Blood Count 9.1 K/mm3 (4.4-11.0)
[2024-08-10 18:09] LABS: ALB/GLOB Ratio 1.4 RATIO (0.9-2.4); AST(SGOT) 18 U/L (<=31); Alanine Aminotransfer ALT/SGPT 10 U/L (<=34); Albumin, Serum 3.9 g/dL (3.4-4.8); Alkaline Phosphatase 77 U/L (35-104); Anion Gap 12 (5-15); BUN 30 mg/dL (4-19); Calcium,Total 8.6 mg/dL (7.6-11.0); Carbon Dioxide 22.6 mmol/L (21.0-32.0); Chloride 108 mmol/L (98-108); Creatinine, Serum 1.49 mg/dL (0.70-1.20); EST Glomerular Filtration Rate 36 (>60); Globulin 2.8 g/dL (2.2-4.2); Glucose 113 mg/dL (70-99); Potassium 4.1 mmol/L (3.3-5.1); Protein, Total 6.7 g/dL (5.9-8.4); Sodium Level 142 mmol/L (133-145); Total Bilirubin 0.38 mg/dL (0.00-1.30)
[2024-08-10 18:12] VITALS: BMI 39.2
[2024-08-10 18:29] VITALS: BP 128/64; PULSE 61; RESP 18; O2SAT 98
[2024-08-10 18:31] LABS: Red Blood Cells-Urine 0 SEEN /hpf (0-5)
[2024-08-10 18:41] LABS: Color, Urine Yellow (Yellow); Glucose, Dipstick Normal (Normal); Ketone-Dipstick Negative (Negative); Leukocyte Esterase-Dipstick 100 /ul (Negative); Nitrite-Dipstick Negative (Negative); Occult Blood-Urine Negative /ul (Negative); Protein-Dipstick 30 mg/dl (Negative); Urine Clarity Clear (Clear); Urine Urobilinogen 1 mg/dl (Normal)
[2024-08-10 18:51] LABS: Urine Bilirubin Dipstick 1 mg/dL (Negative)
[2024-08-10 19:10] LABS: Hyaline Cast 0-5 SEEN /lpf (0-5); Squamous Epithelial Cells - UA 0-5 SEEN /hpf (5-10); White Blood Cells 5-10 SEEN /hpf (0-5)
[2024-08-10 19:11] LABS: Bacteria 2+ /hpf (None Seen); Mucous, Urine 1+ /hpf (<or=2+)
[2024-08-10 20:00] VITALS: BP 136/62; PULSE 67; RESP 18; O2SAT 97
[2024-08-10 20:04] VITALS: BP 136/62; PULSE 67; RESP 18; TEMP 36.7; O2SAT 97
== END 2024-08-10 20:05 | disposition home or self-care (01) ==
PROVIDERS: Emergency Provider Emergency Medicine; PCP Internal Medicine; Visit Provider Emergency Medicine
DX: R53.1 Weakness (principal); N18.9 Chronic kidney disease, unspecified; I12.9 Hypertensive chronic kidney disease with stage 1 through stage 4 chronic kidney disease, or unspecified chronic kidney disease; R53.81 Other malaise; Z86.718 Personal history of other venous thrombosis and embolism; R06.02 Shortness of breath; Z87.442 Personal history of urinary calculi; Z85.3 Personal history of malignant neoplasm of breast; Z86.711 Personal history of pulmonary embolism; Z79.01 Long term (current) use of anticoagulants; Z98.51 Tubal ligation status; Z90.710 Acquired absence of both cervix and uterus
CPT/HCPCS: 36591; 71045; 80053; 81001; 85025; 87086; 87088; 93005; 96360; 99284; A4216

== ENCOUNTER → 2024-10-11 | Outpatient (CLI) | payer MEDICARE, SELFPAY ==
--- OUTSIDE RECORDS SUMMARY | 2024-10-11 07:29 | XMS RPT_ITS | CCD ---
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 and chemistry are OK for therapy. EF on 09/08/2022 was 55%. Malaise and fatigue (5 sources) Asthenia; Translations: [Weakness] Onset: 08-14-2024 08-10-2024 Episodic Mycoses (20 sources) Candidiasis; Translations: [Candidiasis, unspecified] 01-28-2022 Episodic Comment on above: cancer pain Nausea and vomiting (20 sources) Nausea, vomiting and diarrhea; Translations: [Nausea with vomiting, unspecified] Episodic Nonmalignant breast conditions (20 sources) Cyst of breast; Translations: [Solitary cyst of unspecified breast] Episodic Comment on above: Benign Biopsy Nonspecific chest pain (20 sources) Chest pain; Translations: [Atypical chest pain] 01-04-2022 Episodic Nutritional deficiencies (14 sources) Iron deficiency; Translations: [Iron deficiency] 05-13-2022 Episodic Comment on above: Associated with [address] cancer and Chemotherapy/monoclonal therapy. Finished IV replacement with Venofer. Osteoarthritis (20 sources) Arthritis; Translations: [Unspecified osteoarthritis, unspecified site] 09-29-2018 Chronic Other aftercare (14 sources) Encounter for adjustment and management of vascular access device; Translations: [Fitting and adjustment of vascular catheter] Episodic Other aftercare (14 sources) Follow-up status; Translations: [Encounter for follow-up examination after completed treatment for conditions other than malignant neoplasm] 04-01-2022 Episodic Comment on above: Counts have recovere d. Hgb 10.8. Other aftercare (3 sources) Encounter for follow-up examination after completed treatment for conditions other than malignant neoplasm; Translations: [Follow-up examination, following chemotherapy] Episodic Other aftercare (16 sources) Drug therapy finding; Translations: [Encounter for therapeutic drug level monitoring] 08-26-2022 Episodic Other aftercare (8 sources) Long-term current use of anticoagulant; Translations: [[facility] (current) use of anticoagulants] 05-09-2023 Episodic Other aftercare (5 sources) [facility] (current) use of anticoagulants; Translations: [Long-term (current) use of anticoagulants] 05-09-2023 Episodic Other aftercare (6 sources) Long-term current use of drug therapy; Translations: [Encounter for therapeutic drug level monitoring] 08-26-2022 Episodic Comment on above: Echo obtained 08/23/19 24 reviewed, shows normal LV size EF 55% Other bone disease and musculoskeletal deformities (15 sources) Bone pain; Translations: [Other specified disorders of bone, unspecified site] 12-16-2021 Episodic Other bone disease and musculoskeletal deformities (11 sources) Other specified disorders of bone, unspecified site; Translations: [Disorder of bone and cartilage, unspecified] Episodic Other bone disease and musculoskeletal deformities (12 sources) Postmenopausal osteopenia; Translations: [Other specified disorders of bone density and structure, unspecified site] 06-03-2022 Episodic Comment on above: Bone density on 06/10 shows worsening of osteopenia. Other bone disease and musculoskeletal deformities (17 sources) Other specified disorders of bone density and structure, unspecified site; Translations: [Disorder of bone and cartilage, unspecified] Onset: 09-18-2024 06-03-2022 Episodic Other bone disease and musculoskeletal deformities (12 sources) Osteopenia with high fracture risk; Translations: [Other specified disorders of bone density and structure, unspecified site] 04-28-2023 Episodic Other connective tissue disease (20 sources) Pain in lower limb; Translations: [Pain in leg, unspecified] 10-23-2020 Episodic Other connective tissue disease (20 sources) Cramp in lower limb; Translations: [Cramp and spasm] 09-29-2018 Episodic Other connective tissue disease (20 sources) Foot pain; Translations: [Pain in left foot] 09-29-2018 Episodic Other connective tissue disease (6 sources) Pain in left lower limb; Translations: [Pain in left leg] 07-11-2024 Episodic Other diseases of veins and lymphatics (13 sources) Lymphedema; Translations: [Lymphedema, not elsewhere classified] 04-24-2022 Chronic Comment on above: left arm s/p ALND Other diseases of veins and lymphatics (4 sources) Lymphedema, not elsewhere classified; Translations: [Other lymphedema] Chronic Other diseases of veins and lymphatics (3 sources) Venous insufficiency of leg; Translations: [Venous insufficiency (chronic) (peripheral)] 01-12-2024 Episodic Other gastrointestinal disorders (16 sources) Diarrhea; Translations: [Diarrhea, unspecified] 02-20-2022 Episodic Other gastrointestinal disorders (3 sources) Acute constipation; Translations: [Constipation, unspecified] 11-18-2023 Episodic Other lower respiratory disease (7 sources) Dyspnea; Translations: [Shortness of breath] 07-20-2023 Episodic Other lower respiratory disease (2 sources) Shortness of breath; Translations: [Shortness of breath] 07-20-2023 Episodic Other non-traumatic joint disorders (20 sources) Pain in left knee; Translations: [Left knee pain] 09-29-2018 Episodic Other non-traumatic joint disorders (15 sources) Shoulder pain; Translations: [Pain in left shoulder] 09-29-2021 Episodic Other non-traumatic joint disorders (20 sources) Pain in left shoulder; Translations: [Pain in joint, shoulder region] Episodic Other nutritional; endocrine; and metabolic disorders (15 sources) Hypomagnesemia; Translations: [Hypomagnesemia] 02-24-2022 Chronic Other nutritional; endocrine; and metabolic disorders (8 sources) Hypomagnesemia; Translations: [Disorders of magnesium metabolism] Chronic Other nutritional; endocrine; and metabolic disorders (4 sources) Hypocalcemia; Translations: [Hypocalcemia] 03-20-2024 Chronic Comment on above: On Prolia. Ca 8.0 on 03/20/2024 Other skin disorders (2 sources) Mass of chest wall; Translations: [Localized swelling, mass and lump, trunk] 09-18-2024 Episodic Other skin disorders (2 sources) Localized swelling, mass and lump, trunk; Translations: [Localized swelling, mass and lump, trunk] Onset: 09-18-2024 Episodic Other upper respiratory infections (20 sources) Upper respiratory infection; Translations: [Acute upper respiratory infection, unspecified] 03-25-2021 Episodic Phlebitis; thrombophlebitis and thromboembolism (20 sources) Venous thrombosis; Translations: [Acute embolism and thrombosis of unspecified vein] Onset: 07-11-2024 09-29-2018 Episodic Pneumonia (except that caused by tuberculosis or sexually transmitted disease) (20 sources) Pneumonia; Translations: [Pneumonia, unspecified organism] 09-29-2018 Episodic Pulmonary heart disease (20 sources) Pulmonary embolism; Translations: [Other pulmonary embolism without acute cor pulmonale] Episodic Comment on above: hx Residual codes; unclassified (20 sources) Hypersomnia; Translations: [Hypersomnia, unspecified] 09-29-2018 Chronic Residual codes; unclassified (13 sources) History of left mastectomy; Translations: [Acquired absence of left breast and nipple] 04-24-2022 Episodic Comment on above: 04/23/2022 Residual codes; unclassified (4 sources) Other specified postprocedural states; Translations: [Other postprocedural status] Episodic Residual codes; unclassified (4 sources) Acquired absence of left breast and nipple; Translations: [Acquired absence of breast and nipple] Episodic Residual codes; unclassified (2 sources) Estrogen receptor positive status [ER+]; Translations: [Estrogen receptor positive status [ER+]] Onset: 09-18-2024 Episodic Screening and history of mental health and substance abuse codes (20 sources) History of clinical finding in subject; Translations: [Personal history of other mental and behavioral disorders] 09-29-2018 Episodic Spondylosis; intervertebral disc disorders; other back problems (15 sources) Thoracic back pain; Translations: [Pain in thoracic spine] 03-17-2022 Episodic Sprains and strains (20 sources) Strain of muscle of left lower leg; Translations: [Strain of unspecified muscle(s) and tendon(s) at lower leg level, left leg, initial encounter] 10-23-2020 Episodic Superficial injury; contusion (20 sources) Contusion of shoulder region; Translations: [Contusion of right shoulder, initial encounter] 12-29-2018 Episodic Thyroid disorders (20 sources) Thyroid nodule; Translations: [Nontoxic single thyroid nodule] Chronic Unclassified (1 source) Unknown / UNK(Unknown) Onset: 08-30-2016 Viral infection (20 sources) Varicella-zoster virus infection; Translations: [Zoster without complications] 02-27-2018 Episodic Past or Other Problems Problem Classification Problem Date Documented Da te Episodic/Chronic Diabetes mellitus without complication (20 sources) Prediabetes; Translations: [Prediabetes] Onset: 01-12-2024 09-29-2018 Episodic Immunizations and screening for infectious disease (20 sources) Patient encounter status; Translations: [Encounter for screening for COVID-19] Onset: 01-12-2024 03-25-2021 Episodic Other aftercare (12 sources) Encounter for therapeutic drug level monitoring; Translations: [Encounter for therapeutic drug monitoring] Onset: 01-27-2024 10-29-2022 Episodic Other aftercare (1 source) Other corporate development officer (current) drug therapy; Translations: [Other [facility] (current) drug therapy] Onset: 01-27-2024 Episodic Other gastrointestinal disorders (1 source) Constipation, unspecified; Translations: [Constipation, unspecified] Onset: 2023 Episodic Other screening for suspected conditions (not mental disorders or infectious disease) (20 sources) Mammography abnormal; Translations: [Other abnormal and inconclusive findings on diagnostic imaging of breast] Onset: 01-27-2024 10-05-2021 Episodic Comment on above: Secondary to diarrhe a, encouraged to increase oral fluid intake. We will supplement with IV fluids today Results Test Name Value Interpretation Reference Range Facility Absolute lymphocyte countOrd ered By: Haresh Saenz on 09-18-2024 Lymphocytes Auto (Unsp spec) [#/Vol] 2.08 10*3/uL 0.83-4.51 [facility] Absolute neutrophil countOrd ered By: Haresh Saenz on 09-18-2024 Neutrophils (Bld) [#/Vol] 5.3 10*3/uL 2.0-7.7 [facility] Anion gap in Serum or Plasma Ordered By: Haresh Saenz on 09-18-2024 Anion gap [Moles/Vol] 11 mmol/L 5-15 [facility] Automated lymphocyte count a s percentage of total leukocytesOrdered By: Haresh Saenz on 09-18-2024 Lymphocytes/100 WBC Auto (Unsp spec) 25.0 % 19-41 [facility] BUN/creatinine ratioOrdered By: Haresh Saenz on 09-18-2024 Urea nitrogen/Creatinine [Mass ratio] 19.2 mg/mg 10-20 [facility] Basophil percentageOrdered B y: Haresh Saenz on 09-18-2024 Basophils/100 WBC (Bld) 0.6 % 0-1 [facility] Bilirubin, totalOrdered By: Haresh Shethrobbie on 09-18-2024 Bilirubin [Mass/Vol] 0.44 mg/dL 0.00-1.30 [facility] CBC W/Diff, Automatedon -2024 Absolute Lymph 2.08 X10 3/uL Normal 0.83-4.51 [facility] Comment on above: Performed By: #### L 500.4050, L100.0100, L504.2610 #### [facility] [address] [place], [address] Absolute Neut 5.3 X10 3/uL Normal 2.0-7.7 [facility] Comment on above: Performed By: #### L 500.4050, L100.0100, L504.2610 #### [facility] [address] [place], [address] Basophils/100 WBC (Bld) 0.6 % Normal 0-1 [facility] Comment on above: Performed By: #### L 500.4050, L100.0100, L504.2610 #### [facility] [address] [place], [address] Eosinophils/100 WBC (Bld) 2.4 % Normal 0-5 [facility] Comment on above: Performed By: #### L 500.4050, L100.0100, L504.2610 #### [facility] [address] [place], [address] Erythrocyte distribution width (RBC) [Ratio] 13.9 % Normal 11.6-14.6 [facility] Comment on above: Performed By: #### L 500.4050, L100.0100, L504.2610 #### [facility] [address] [place], [address] Hematocrit (Bld) [Volume fraction] 40.6 % Normal 37-47 [facility] Comment on above: Performed By: #### L 500.4050, L100.0100, L504.2610 #### [facility] [address] [place], [address] Hemoglobin (Bld) [Mass/Vol] 13.1 g/dL Normal 12.0-15.0 [facility] Comment on above: Performed By: #### L 500.4050, L100.0100, L504.2610 #### [facility] [address] [place], [address] IG% 0.400 Normal 0.0-0.9 [facility] Comment on above: Result Comment: IG% - Immature Granulocytes (promyelocytes, myelocytes and metamyelocytes) > 1% indicates that a LEFT SHIFT is Present. Performed By: #### L 500.4050, L100.0100, L504.2610 #### [facility] [address] [place], [address] Lymphocytes/100 WBC (Bld) 25.0 % Normal 19-41 [facility] Comment on above: Performed By: #### L 500.4050, L100.0100, L504.2610 #### [facility] [address] [place], [address] MCH (RBC) [Entitic mass] 27.6 pg Normal 27.0-32.0 [facility] Comment on above: Performed By: #### L 500.4050, L100.0100, L504.2610 #### [facility] [address] [place], [address] MCHC (RBC) [Mass/Vol] 32.3 g/dL Normal 32-36 [facility] Comment on above: Performed By: #### L 500.4050, L100.0100, L504.2610 #### [facility] [address] [place], [address] MCV (RBC) [Entitic vol] 85.7 fL Normal 81-99 [facility] Comment on above: Performed By: #### L 500.4050, L100.0100, L504.2610 #### [facility] [address] [place], [address] Monocytes/100 WBC (Bld) 7.9 % Normal 0-10 [facility] Comment on above: Performed By: #### L 500.4050, L100.0100, L504.2610 #### [facility] [address] [place], [address] Neutrophils/100 WBC (Bld) 63.7 % Normal 47-70 [facility] Comment on above: Performed By: #### L 500.4050, L100.0100, L504.2610 #### [facility] [address] [place], [address] Nucleated RBC (Bld) [#/Vol] 0 10*3/uL Normal 0-5 [facility] Comment on above: Performed By: #### L 500.4050, L100.0100, L504.2610 #### [facility] [address] [place], [address] Platelet mean volume (Bld) [Entitic vol] 10.5 fL Normal 6.2-12.0 [facility] Comment on above: Performed By: #### L 500.4050, L100.0100, L504.2610 #### [facility] [address] [place], [address] Platelets (Bld) [#/Vol] 213 10*3/uL Normal 150-450 [facility] Comment on above: Performed By: #### L 500.4050, L100.0100, L504.2610 #### [facility] [address] [place], [address] RBC (Bld) [#/Vol] 4.74 10*6/uL Normal 4.2-5.[address] [facility] Comment on above: Performed By: #### L 500.4050, L100.0100, L504.2610 #### [facility] [address] [place], [address] RDW SD 43.0 fl Normal 35.1-43.9 [facility] Comment on above: Performed By: #### L 500.4050, L100.0100, L504.2610 #### [facility] [address] [place], [address] WBC (Bld) [#/Vol] 8.3 10*3/uL Normal 4.4-11.0 [facility] Comment on above: Performed By: #### L 500.4050, L100.0100, L504.2610 #### [facility] [address] [place], [address] Carbon dioxide, total [Moles /volume] in Central venous bloodOrdered By: Haresh Saenz on 09-18-2024 CO2 [Moles/Vol] 22.7 mmol/L 21.0-32.0 [facility] Chloride assayOrdered By: Carolyn Saenz on 09-18-2024 Chloride [Moles/Vol] 106 mmol/L 98-108 [facility] Comprehensive Metabolic Prof ilon 09-18-2024 Albumin [Mass/Vol] 4.0 g/dL Normal 3.4-4.8 [facility] Comment on above: Performed By: #### L 500.4050, L100.0100, L504.2610 ####[facility] [address] [place], [address] Albumin/Globulin [Mass ratio] 1.4 {ratio} Normal 0.9-2.4 [facility] Comment on above: Performed By: #### L 500.4050, L100.0100, L504.2610 ####[facility] [address] [place], [address] ALK PHOS 94 U/L Normal 35-104 [facility] Comment on above: Performed By: #### L 500.4050, L100.0100, L504.2610 ####[facility] [address] [place], [address] ALT [Catalytic activity/Vol] 13 U/L Normal <=34 [facility] Comment on above: Performed By: #### L 500.4050, L100.0100, L504.2610 ####[facility] [address] [place], [address] AST [Catalytic activity/Vol] 19 U/L Normal <=31 [facility] Comment on above: Performed By: #### L 500.4050, L100.0100, L504.2610 ####[facility] [address] [place], [address] Bilirubin [Mass/Vol] 0.44 mg/dL Normal 0.00-1.30 [facility] Comment on above: Performed By: #### L 500.4050, L100.0100, L504.2610 ####[facility] [address] [place], [address] BUN/CRE 19.2 RATIO Normal 10-20 [facility] Comment on above: Performed By: #### L 500.4050, L100.0100, L504.2610 ####[facility] [address] [place], [address] Calcium [Mass/Vol] 8.6 mg/dL Normal 7.6-11.0 [facility] Comment on above: Performed By: #### L 500.4050, L100.0100, L504.2610 ####[facility] [address] [place], [address] Chloride [Moles/Vol] 106 mmol/L Normal 98-108 [facility] Comment on above: Performed By: #### L 500.4050, L100.0100, L504.2610 ####[facility] [address] [place], [address] CO2 [Moles/Vol] 22.7 mmol/L Normal 21.0-32.0 [facility] Comment on above: Performed By: #### L 500.4050, L100.0100, L504.2610 ####[facility] [address] [place], [address] Creatinine [Mass/Vol] 1.37 mg/dL High 0.70-1.20 [facility] Comment on above: Performed By: #### L 500.4050, L100.0100, L504.2610 ####[facility] [address] [place], [address] ECRCL 35.20 ml/min Low 50-250 [facility] Comment on above: Performed By: #### L 500.4050, L100.0100, L504.2610 ####[facility] [address] [place], [address] GAP 11 Normal 5-15 [facility] Comment on above: Performed By: #### L 500.4050, L100.0100, L504.2610 ####[facility] [address] [place], [address] GFR/1.73 sq M.predicted among non-blacks MDRD (S/P/Bld) [Vol rate/Area] 40 mL/min/{1.73_m2} Low >60 [facility] Comment on above: Result Comment: mL/m in/1.73m2 CKD-EPI Creatinine Equation (2020) Performed By: #### L 500.4050, L100.0100, L504.2610 ####[facility] [address] [place], [address] Globulin (S) [Mass/Vol] 2.9 g/dL Normal 2.2-4.2 [facility] Comment on above: Performed By: #### L 500.4050, L100.0100, L504.2610 ####[facility] [address] [place], [address] Glucose [Mass/Vol] 143 mg/dL High 70-99 [facility] Comment on above: Performed By: #### L 500.4050, L100.0100, L504.2610 ####[facility] [address] [place], [address] Potassium [Moles/Vol] 4.2 mmol/L Normal 3.3-5.1 [facility] Comment on above: Performed By: #### L 500.4050, L100.0100, L504.2610 ####[facility] [address] [place], [address] Sodium [Moles/Vol] 139 mmol/L Normal 133-145 [facility] Comment on above: Performed By: #### L 500.4050, L100.0100, L504.2610 ####[facility] [address] [place], [address] T PROT 6.9 g/dL Normal 5.9-8.4 [facility] Comment on above: Performed By: #### L 500.4050, L100.0100, L504.2610 ####[facility] [address] [place], [address] Urea nitrogen [Mass/Vol] 26 mg/dL High 4-19 [facility] Comment on above: Performed By: #### L 500.4050, L100.0100, L504.2610 ####[facility] [address] [place], [address] Eosinophil percentageOrdered By: Haresh Dany on 09-18-2024 Eosinophils/100 WBC (Bld) 2.4 % 0-5 [facility] Erythrocyte distribution wid th ratioOrdered By: [facility] on 09-18-2024 Erythrocyte distribution width (RBC) [Ratio] 13.9 % 11.6-14.6 [facility] Erythrocyte distribution wid th standard deviationOrdered By: [facility] on 09-18-2024 Erythrocyte distribution width (RBC) [Ratio] 43.0 fl 35.1-43.9 [facility] Glomerular filtration rate ( GFR) estimation/1.73 sq m using serum, plasma, or whole bOrdered By: Haresh Saenz on 09-18-2024 GFR/1.73 sq M.predicted among non-blacks MDRD (S/P/Bld) [Vol rate/Area] 40 mL/min/{1.73_m2} Low >60 [facility] Comment on above: mL/min/1.73m2 CKD-EP I Creatinine Equation (2020) Hematocrit Auto (Bld) [Volum e fraction]Ordered By: [facility] on 09-18-2024 Hematocrit (Bld) [Volume fraction] 40.6 % 37-47 [facility] Hemoglobin measurementOrdere d By: Haresh Saenz on 09-18-2024 Hemoglobin (Bld) [Mass/Vol] 13.1 g/dL 12.0-15.0 [facility] Immature granulocytes/100 WB C Auto (Bld)Ordered By: Haresh Saenz on 09-18-2024 Immature granulocytes/100 WBC (Bld) 0.400 % 0.0-0.9 [facility] Comment on above: IG% - Immature Granu locytes (promyelocytes, myelocytes and metamyelocytes) > 1% indicates that a LEFT SHIFT is Present. LDHon 09-18-2024 LDH 176 U/L Normal 84-246 [facility] Comment on above: Order Comment: 1 Performed By: #### L 500.4050, L100.0100, L504.2610 ####[facility] [address] [place], [address] Laboratory - Chemistry and C hemistry - challengeOrdered By: Haresh Saenz on 09-18-2024 AST [Catalytic activity/Vol] 19 U/L <32 [facility] Lactate dehydrogenase (LDH) measurementOrdered By: Haresh Saenz on 09-18-2024 LDH [Catalytic activity/Vol] 176 U/L 84-246 [facility] MCV (mean corpuscular volume ) determinationOrdered By: Haresh Saenz on 09-18-2024 MCV (RBC) [Entitic vol] 85.7 fL 81-99 [facility] Mean corpuscular hemoglobin (MCH) determinationOrdered By: Haresh Saenz on 09-18-2024 MCH (RBC) [Entitic mass] 27.6 pg 27.0-32.0 [facility] Mean corpuscular hemoglobin concentration (MCHC) determinationOrdered By: aHresh Saenz on 09-18-2024 MCHC (RBC) [Mass/Vol] 32.3 g/dL 32-36 [facility] Mean platelet volume determi nationOrdered By: Haresh Saenz on 09-18-2024 Platelet mean volume (Bld) [Entitic vol] 10.5 fL 6.2-12.0 [facility] Monocyte percentageOrdered B y: Haresh Saenz on 09-18-2024 Monocytes/100 WBC (Bld) 7.9 % 0-10 [facility] Neutrophil percentageOrdered By: Haresh Saenz on 09-18-2024 Neutrophils/100 WBC (Bld) 63.7 % 47-70 [facility] Nucleated red blood cell per centageOrdered By: Haresh Saenz on 09-18-2024 Nucleated RBC/100 WBC (Bld) [Ratio] 0 % 0-5 [facility] Oncology Visit Reporton 06-0 Oncology Visit Report [facility] [place] [facility] [address] [place] [address] OFFICE VISIT Date of Service: 09/18/24 1527 MR#: [id number] Acct: [id number] Name: PAUL BARONE Rep #: [id number] : 1945 From: Miriam Merchant Age/Sex: 78/F Location: [facility] [place] Status: Signed HPI Subjective Date of Service 09/18/24 Chief Complaint 6 M FU History of Present Illness 78 y.o.woman developed L breast pain in June 2021. Had a mammogram on 10/05/2021 which showed multiple nodules in L breast suggestive of malignancy. US on the same day showed 2 masses in the L breast. She saw Dr. Saab, had US guided biopsy of L breast mass and L axillary node on 10/27/2021. 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 CT C/A/P with contrast obtained 11/06/21 demonstrated L breast mass and enlarged left axillary lymph node, bilateral parapelvic cysts and bilateral pulmonary emboli. Bone scan obtained 11/10/2021 showed no evidence of bony metastasis. Pretreatment echocardiogram 11/06/2021 shows normal LV size and function, EF 65%, normal global longitudinal strain and stage I diastolic dysfunction. PET/CT obtained 11/20/21 demonstrated multifocal uptake in left breast, SUV 5.4 largest individual focus 25.2 mm, hypermetabolic activity within the left axilla, SUV 5, largest areas 18.7mm, increased uptake in left thyroid and no evidence of distant metastatic disease. MRI breast 11/23/21 demonstrated multifocal disease within the left breast and findings compatible with inflammatory breast cancer. She was diagnosed with clinically Stage IIIB(cT4 cN2 M0) multifocal breast disease. Started TCHP C1 on 12/02/2021. Had diarrhea controlled with Imodium, bone pain controlled with Aleve. Left breast mass and axillary node resolved after 2nd cycle. Had diarrhea for about 2 weeks after C4, went to ER and needed IV fluids so dose of Carboplatin and Taxotere were decrease for C5. Got C6 on 03/17/2022. Had L breast MRM with L axillary dissection on 04/23/2022, showed 7 foci of invasive ductal carcinoma, largest measured 2.5 x 1.5 x 1.5 cm, negative margins, no skin or lymphovascular invasion, 1/10 LN positive for macrometastases, 2/10 LN positive for micrometastases. Got adjuvant Perjeta and Herceptin analogue 05/13/2022-12/09/22. Began anastrozole 08/27/22. Interval History The patient is presenting to clinic for a 6 month follow up. Confirms good adherence and tolerance to anastrozole. Concerns today include new lump along left chest wall. She noticed area 2 weeks ago. Is not changing in size. Non tender. Specifically denies weight loss, headaches, dizziness, CP, palpitations, cough, SOB, abd pain, swelling of her extremities. Fatigue mild not interfering with activity. [facility] Medical History Pain of left lower extremity Shingles Flu vaccine need Venous insufficiency of both lower extremities Cardiology follow-up encounter Osteopenia with high risk of fracture Colon cancer screening Cataract (lens) fragments in eye following cataract surgery, bilateral Screening for breast cancer Encounter for monitoring cardiotoxic drug therapy Decreased cardiac ejection fraction Encounter for monitoring cardiotoxic drug therapy Port-A-Cath in place Hypokalemia 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 CINV (chemotherapy-induced nausea and vomiting) Encounter for chemotherapy management Left thyroid nodule Encounter for education Wears dentures Wears glasses Anxiety Pulmonary embolism DVT (deep venous thrombosis) Non-smoker History of echocardiogram History of stress test Hypertension Breast cancer, left Abnormal mammogram of left breast Anxiety and depression Breast pain, left Left shoulder pain Encounter for screening for COVID-19 URI (upper respiratory infection) Chest pain Fractures involving multiple body regions Breast lump Blood clot in vein Vision problems Pneumonia Kidney stones H/O emotional problems Chronic bronchitis Asthma Arthritis Environmental allergies Surgical History History of appendectomy Hx of left mastectomy History of lymph node dissection of axilla S/P left mastectomy Hx of tubal ligation History of hysterectomy History of tonsillectomy History of shoulder surgery Family History Father Alcoholism Asthma Mother Anxiety Blood clot in vein Myocardial infarction Grandmother Blood clot in vein Myocardial infarction Brother Myocardial infarction Aunt Breast cancer Grandmother CVA (cerebral vascular accident) Daughter Suicide attempt Other Colon cancer Social History Smoking Status: Never smoker alcohol intake: never substance use type: do (more content not included)... Normal [facility] Platelet countOrdered By: Carolyn Saenz on 09-18-2024 Platelets (Bld) [#/Vol] 213 10*3/uL 150-450 [facility] Potassium measurement (mass/ volume)Ordered By: Haresh Saenz on 09-18-2024 Potassium (Unsp spec) [Mass/Vol] 4.2 mmol/L 3.3-5.1 [facility] RBC Auto (Bld) [#/Vol]Ordere d By: Haresh Saenz on 09-18-2024 RBC (Bld) [#/Vol] 4.74 10*6/uL 4.2-5.[address] [facility] Serum creatinine measurement (mass/volume)Ordered By: Haresh Saenz on 09-18-2024 Creatinine [Mass/Vol] 1.37 mg/dL High 0.70-1.20 [facility] Serum globulin measurementOr dered By: Haresh Saenz on 09-18-2024 Globulin (S) [Mass/Vol] 2.9 g/dL 2.2-4.2 [facility] Serum glucose measurement (m ass/volume)Ordered By: Haresh Saenz on 09-18-2024 Glucose [Mass/Vol] 143 mg/dL High 70-99 [facility] Serum or plasma alanine harris otransferase (ALT) measurementOrdered By: Haresh Saenz on 09-18-2024 ALT [Catalytic activity/Vol] 13 U/L <35 [facility] Serum or plasma albumin jasbir urement (mass/volume)Ordered By: Haresh Saenz on 09-18-2024 Albumin [Mass/Vol] 4.0 g/dL 3.4-4.8 [facility] Serum or plasma albumin/glob ulin mass ratioOrdered By: Haresh Saenz on 09-18-2024 Albumin/Globulin [Mass ratio] 1.4 {ratio} 0.9-2.4 [facility] Serum or plasma alkaline sandra sphatase measurementOrdered By: Haresh Saenz on 09-18-2024 ALP [Catalytic activity/Vol] 94 U/L 35-104 [facility] Serum or plasma calcium jasbir urement (mass/volume)Ordered By: Haresh Saenz on 09-18-2024 Calcium [Mass/Vol] 8.6 mg/dL 7.6-11.0 [facility] Serum or plasma urea nitroge n measurement (mass/volume)Ordered By: Haresh Saenz on 09-18-2024 Urea nitrogen [Mass/Vol] 26 mg/dL High 4-19 [facility] Sodium levelOrdered By: Sukumar Saenz on 09-18-2024 Sodium [Moles/Vol] 139 mmol/L 133-145 [facility] Total proteinOrdered By: Edd Saenz on 09-18-2024 Protein [Mass/Vol] 6.9 g/dL 5.9-8.4 [facility] White blood cell (WBC) count Ordered By: Haresh Saenz on 09-18-2024 WBC (Bld) [#/Vol] 8.3 10*3/uL 4.4-11.0 [facility] Urine Cultureon 08-12-2024 [facility] Mixed Gram Positive Organisms [place] Count 11,000-25,000 [facility] Mixed contaminants. Submit a new specimen if indicated. Normal [facility] Comment on above: Performed By: #### M 100.2200 ####[facility] [address] [place], [place], [id number] Absolute lymphocyte countOrd ered By: Marcin Boyer on 08-10-2024 Lymphocytes Auto (Unsp spec) [#/Vol] 2.24 10*3/uL 0.83-4.51 [facility] Absolute neutrophil countOrd ered By: Marcin Boyer on 08-10-2024 Neutrophils (Bld) [#/Vol] 5.7 10*3/uL 2.0-7.7 [facility] Anion gap in Serum or Plasma Ordered By: Marcin Boyer on 08-10-2024 Anion gap [Moles/Vol] 12 mmol/L 5-15 [facility] Automated blood erythrocyte countOrdered By: Marcin Boyer on 08-10-2024 RBC (Bld) [#/Vol] 4.68 10*6/uL Normal 4.2-5.[address] [facility] Comment on above: Performed By: #### L 500.4050, L100.0100 #### [facility] [address] [place], [address] Automated blood hematocrit ( percentage)Ordered By: Marcin Boyer on 08-10-2024 Hematocrit (Bld) [Volume fraction] 39.9 % Normal 37-47 [facility] Comment on above: Performed By: #### L 500.4050, L100.0100 #### [facility] [address] [place], [address] Automated lymphocyte count a s percentage of total leukocytesOrdered By: Marcin Boyer on 08-10-2024 Lymphocytes/100 WBC (Bld) 24.7 % Normal 19-41 [facility] Comment on above: Performed By: #### L 500.4050, L100.0100 #### [facility] [address] [place], [address] Lymphocytes/100 WBC Auto (Unsp spec) 24.7 % - [facility] BUN/creatinine ratioOrdered By: Marcin Boyer on 08-10-2024 Urea nitrogen/Creatinine [Mass ratio] 20.0 mg/mg 10-20 [facility] Basophil percentageOrdered B y: Marcin Boyer on 08-10-2024 Basophils/100 WBC (Bld) 0.4 % Normal 0-1 [facility] Comment on above: Performed By: #### L 500.4050, L100.0100 #### [facility] [address] [place], [address] Bilirubin Test strip Ql (U)O rdered By: Marcin Boyer on 08-10-2024 Bilirubin Ql (U) 1 mg/dL High Negative [facility] Comment on above: COLOR OF URINE MAY A FFECT DIPSTICK RESULTS. Bilirubin, totalOrdered By: Marcin Boyer on 08-10-2024 Bilirubin [Mass/Vol] 0.38 mg/dL 0.00-1.30 [facility] CBC W/Diff, Automatedon 07-18 Absolute Lymph 2.24 X10 3/uL Normal 0.83-4.51 [facility] Comment on above: Performed By: #### L 500.4050, L100.0100 #### [facility] [address] [place], [address] Absolute Neut 5.7 X10 3/uL Normal 2.0-7.7 [facility] Comment on above: Performed By: #### L 500.4050, L100.0100 #### [facility] [address] [place], [address] IG% 0.300 Normal 0.0-0.9 [facility] Comment on above: Result Comment: IG% - Immature Granulocytes (promyelocytes, myelocytes and metamyelocytes) > 1% indicates that a LEFT SHIFT is Present. Performed By: #### L 500.4050, L100.0100 #### [facility] [address] [place], [address] Nucleated RBC (Bld) [#/Vol] 0 10*3/uL Normal 0-5 [facility] Comment on above: Performed By: #### L 500.4050, L100.0100 #### [facility] [address] [place], [address] RDW SD 43.9 fl Normal 35.1-43.9 [facility] Comment on above: Performed By: #### L 500.4050, L100.0100 #### [facility] [address] [place], [address] Carbon dioxide, total [Moles /volume] in Central venous bloodOrdered By: Marcin Boyer on 08-10-2024 CO2 [Moles/Vol] 22.6 mmol/L 21.0-32.0 [facility] Chest 1 View (Portable)on Chest 1 View (Portable) [facility] Imaging Services [address] [place] [address] Chest 1 View (Portable) MR#: [id number] Acct: [id number] Name: PAUL BARONE Rep #: [id number] : 1945 F 78 From: Eloy Lau MD PCP: Dr. Michael Corcoran MD Status: REG ER Study: Chest 1 View (Portable) Date of Exam: 08/10/24 Exam# [id number] Ordering Dr: Marcin Boyer MD PROCEDURE: CHEST 1 VIEW (PORTABLE) 08/10/2024 REASON FOR EXAM: SHORTNESS OF BREATH TECHNIQUE: Frontal view of the chest. COMPARISON: 12/06/2021 FINDINGS: Hardware: Right internal jugular chest port. Status post left axillary lymph node dissection. Heart: Cardiac and mediastinal contours are stable. Lungs: The lungs are clear. Elevated right hemidiaphragm. Bones: The bones are unremarkable. Other: RAD/Chest 1 View (Portable) IMPRESSION: No Acute Findings. Reading Location: [facility] CC: Dr. Marcin Boyer MD; Dr. Michael Corcoran MD Ammunition Officer: Signed Normal [facility] Chloride assayOrdered By: Nicola Boyer on 08-10-2024 Chloride [Moles/Vol] 108 mmol/L 98-108 [facility] Comprehensive Metabolic Prof ilon 08-10-2024 Albumin [Mass/Vol] 3.9 g/dL Normal 3.4-4.8 [facility] Comment on above: Performed By: #### L 500.4050, L100.0100 #### [facility] [address] [place], [address] Albumin/Globulin [Mass ratio] 1.4 {ratio} Normal 0.9-2.4 [facility] Comment on above: Performed By: #### L 500.4050, L100.0100 #### [facility] [address] [place], [address] ALK PHOS 77 U/L Normal 35-104 [facility] Comment on above: Performed By: #### L 500.4050, L100.0100 #### [facility] [address] [place], [address] ALT [Catalytic activity/Vol] 10 U/L Normal <=34 [facility] Comment on above: Performed By: #### L 500.4050, L100.0100 #### [facility] [address] [place], [address] AST [Catalytic activity/Vol] 18 U/L Normal <=31 [facility] Comment on above: Result Comment: Hemo lysis present, Results??could be affected. ?? Performed By: #### L 500.4050, L100.0100 #### [facility] [address] [place], [address] Bilirubin [Mass/Vol] 0.38 mg/dL Normal 0.00-1.30 [facility] Comment on above: Performed By: #### L 500.4050, L100.0100 #### [facility] [address] [place], [address] BUN/CRE 20.0 RATIO Normal 10-20 [facility] Comment on above: Performed By: #### L 500.4050, L100.0100 #### [facility] [address] [place], [address] Calcium [Mass/Vol] 8.6 mg/dL Normal 7.6-11.0 [facility] Comment on above: Performed By: #### L 500.4050, L100.0100 #### [facility] [address] [place], [address] Chloride [Moles/Vol] 108 mmol/L Normal 98-108 [facility] Comment on above: Performed By: #### L 500.4050, L100.0100 #### [facility] [address] [place], [address] CO2 [Moles/Vol] 22.6 mmol/L Normal 21.0-32.0 [facility] Comment on above: Performed By: #### L 500.4050, L100.0100 #### [facility] [address] [place], [address] Creatinine [Mass/Vol] 1.49 mg/dL High 0.70-1.20 [facility] Comment on above: Performed By: #### L 500.4050, L100.0100 #### [facility] [address] [place], [address] GAP 12 Normal 5-15 [facility] Comment on above: Performed By: #### L 500.4050, L100.0100 #### [facility] [address] [place], [address] GFR/1.73 sq M.predicted among non-blacks MDRD (S/P/Bld) [Vol rate/Area] 36 mL/min/{1.73_m2} Low >60 [facility] Comment on above: Result Comment: mL/m in/1.73m2 CKD-EPI Creatinine Equation (2020) Performed By: #### L 500.4050, L100.0100 #### [facility] [address] [place], [address] Globulin (S) [Mass/Vol] 2.8 g/dL Normal 2.2-4.2 [facility] Comment on above: Performed By: #### L 500.4050, L100.0100 #### [facility] [address] [place], [address] Glucose [Mass/Vol] 113 mg/dL High 70-99 [facility] Comment on above: Performed By: #### L 500.4050, L100.0100 #### [facility] [address] [place], [address] Potassium [Moles/Vol] 4.1 mmol/L Normal 3.3-5.1 [facility] Comment on above: Result Comment: Hemo lysis present, Results??could be affected. ?? Performed By: #### L 500.4050, L100.0100 #### [facility] [address] [place], [address] Sodium [Moles/Vol] 142 mmol/L Normal 133-145 [facility] Comment on above: Performed By: #### L 500.4050, L100.0100 #### [facility] [address] [place], [address] T PROT 6.7 g/dL Normal 5.9-8.4 [facility] Comment on above: Performed By: #### L 500.4050, L100.0100 #### [facility] [address] [place], [address] Urea nitrogen [Mass/Vol] 30 mg/dL High 4-19 [facility] Comment on above: Performed By: #### L 500.4050, L100.0100 #### [facility] [address] [place], [address] Emergency Department Summary on 08-10-2024 Emergency Department Summary [facility] Medical Records Department [address] [place] [address] Emergency Department Summary 08/10/24 MR#: [id number] Acct: [id number] Name: PAUL BARONE Rep #: [id number] : 1945 78 From: Marcin Boyer MD PCP: Dr. Michael Corcoran MD Status:REG ER Location: ED HPI History of Present Illness Chief Complaint: Shortness of Breath Narrative Narrative: 78-year-old female past medical history of recovery from breast carcinoma, DVT/PE on Eliquis presents with malaise and fatigue that she has had all day. She denies any fevers or chills, no cough but states that she feels short of breath. She states that yesterday, she was doing multiple tasks, and yesterday evening felt fatigued and started feeling bad then. She states that even after she woke up today, she is felt very tired. She denies any chest pain, no dysuria or hematuria, no nausea or vomiting, no diarrhea, no exacerbating or alleviating factors. She denies black stool. She states she feels short of breath, tired, and fatigued. PFSH [facility] Medical History Pain of left lower extremity Shingles Flu vaccine need Venous insufficiency of both lower extremities Cardiology follow-up encounter Osteopenia with high risk of fracture Colon cancer screening Cataract (lens) fragments in eye following cataract surgery, bilateral Screening for breast cancer Encounter for monitoring cardiotoxic drug therapy Decreased cardiac ejection fraction Encounter for monitoring cardiotoxic drug therapy Port-A-Cath in place Hypokalemia 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 CINV (chemotherapy-induced nausea and vomiting) Encounter for chemotherapy management Left thyroid nodule Encounter for education Wears dentures Wears glasses Anxiety Pulmonary embolism DVT (deep venous thrombosis) Non-smoker History of echocardiogram History of stress test Hypertension Breast cancer, left Abnormal mammogram of left breast Anxiety and depression Breast pain, left Left shoulder pain Encounter for screening for COVID-19 URI (upper respiratory infection) Chest pain Fractures involving multiple body regions Breast lump Blood clot in vein Vision problems Pneumonia Kidney stones H/O emotional problems Chronic bronchitis Asthma Arthritis Environmental allergies Home Medications ???Medication ???Instructions ???Recorded ???Last Taken ???Type albuterol sulfate 90 mcg/actuation 1 - 2 puff inhalation Q4H PRN TX N 12/06/21 Unknown Rx aerosol inhaler (Ventolin HFA) Wheezing ##1 multivitamin 1 tab PO DAILY 07/15/22 07/11/23 H istory loratadine 10 mg tablet (Claritin) 10 mg PO DAILY PRN allergies 03/1007/17/22 History biotin 1 mg capsule 1 mg PO DAILY 10/29/22 07/11/23 Hi story lidocaine-prilocaine 2.5 %-2.5 % 1 applic topical ONCE PRN port 08/08 Unknown Rx topical cream access 30 days #30 grams Handicap Placard #1 ea 05/24/23 Unknown Rx Compression arm sleeve 20-30 mmHg #2 ea 06/28/23 Unknown Rx amlodipine 10 mg tablet 10 mg PO DAILY #90 tabs 07/29/23 U nknown Rx atorvastatin 40 mg tablet 40 mg PO DAILY #90 tabs 09/27/23 U nknown Rx anastrozole 1 mg tablet See Rx Instructions .Route 4 Unknown Rx .COMPLEX #90 tabs magnesium citrate 300 ml PO X1 #1 BOTTLE 11/10/23 Un known Rx compress.stocking,knee ,reg,lrg #2 ea 01/12/24 Unknown Rx denosumab 60 mg/mL subcutaneous 60 mg subcut [id number] #1 mL Unknown Rx syringe (Prolia) paroxetine HCl 20 mg tablet (Paxil) 20 mg PO DAILY #90 tabs 5 Unknown Rx apixaban 5 mg tablet (Eliquis) See Rx Instructions .Route 5 Unknown Rx .COMPLEX #60 tabs Allergy/AdvReac Type Severity Reaction Status Date / Time Penicillins Allergy Hives Verified 08/10/24 17:04 Family History Father Alcoholism Asthma Mother Anxiety Blood clot in vein Myocardial infarction Grandmother Blood clot in vein Myocardial infarction Brother Myocardial infarction Aunt Breast cancer Grandmother CVA (cerebral vascular accident) Daughter Suicide attempt Other Colon cancer Surgical History History of appendectomy Hx of left mastectomy History of lymph node dissection of axilla S/P left mastectomy Hx of tubal ligation History of hysterectomy History of tonsillectomy History of shoulder surgery Social History Smoking Status: Never smoker alcohol intake: never substance use type: does not use caffeine: Yes Type: carbonated beverages Number of servings: 2 what type of physical activity do you participate in: none seatbelt use: always do you feel safe at home: Yes ROS ROS ED ROS Narra (more content not included)... Normal [facility] Eosinophil percentageOrdered By: Marcin Boyer on 08-10-2024 Eosinophils/100 WBC (Bld) 2.4 % Normal 0-5 [facility] Comment on above: Performed By: #### L 500.4050, L100.0100 #### [facility] [address] [place], [address] Epithelial cells.squamous LM Ql (Urine sed)Ordered By: Marcin Boyer on 08-10-2024 Epithelial cells.squamous LM.HPF (Urine sed) [#/Area] 0 /[HPF] 5-10 [facility] Erythrocyte distribution wid th (RBC) [Ratio]Ordered By: Marcin Boyer on 08-10-2024 Erythrocyte distribution width (RBC) [Entitic vol] 43.9 fL 35.1-43.9 [facility] Erythrocyte distribution wid th ratioOrdered By: Marcin Boyer on 08-10-2024 Erythrocyte distribution width (RBC) [Ratio] 14.1 % Normal 11.6-14.6 [facility] Comment on above: Performed By: #### L 500.4050, L100.0100 #### [facility] [address] [place], [place], [id number] Erythrocyte distribution wid th standard deviationOrdered By: Marcin Boyer on 08-10-2024 Erythrocyte distribution width (RBC) [Ratio] 43.9 fl 35.1-43.9 [facility] GFR/1.73 sq M.predicted rober g non-blacks MDRD (S/P/Bld) [Vol rate/Area]Ordered By: Marcin Boyer on 08-10-2024 Estimated GFR (MDRD) Non-Af Amer 36 Low >60 [facility] Comment on above: mL/min/1.73m2 CKD-EP I Creatinine Equation (2020) Glomerular filtration rate ( GFR) estimation/1.73 sq m using serum, plasma, or whole bOrdered By: Marcin Boyer on 08-10-2024 GFR/1.73 sq M.predicted among non-blacks MDRD (S/P/Bld) [Vol rate/Area] 36 mL/min/{1.73_m2} Low >60 [facility] Comment on above: mL/min/1.73m2 CKD-EP I Creatinine Equation (2020) Glucose Ql (U)Ordered By: Nicola Boyer on 08-10-2024 Urine Glucose (UA) Normal mg/dl Normal [facility] Hemoglobin measurementOrdere d By: Marcin Boyer on 08-10-2024 Hemoglobin (Bld) [Mass/Vol] 13.2 g/dL Normal 12.0-15.0 [facility] Comment on above: Performed By: #### L 500.4050, L100.0100 #### [facility] [address] [place], [place], [id number] Hyaline casts LM.LPF (Urine sed) [#/Area]Ordered By: Marcin Boyer on 08-10-2024 Hyaline casts (Urine sed) [#/Area] 0 /[LPF] 0-5 [facility] Hyaline casts LM Ql (Urine sed) 0-5 SEEN /lpf 0-5 [facility] Immature granulocytes/100 WB C Auto (Bld)Ordered By: Marcin Boyer on 08-10-2024 Immature granulocytes/100 WBC (Bld) 0.300 % 0.0-0.9 [facility] Comment on above: IG% - Immature Granu locytes (promyelocytes, myelocytes and metamyelocytes) > 1% indicates that a LEFT SHIFT is Present. Ketones Test strip Ql (U)Ord ered By: Marcin Boyer on 08-10-2024 Ketones Ql (U) Negative Negative [facility] - Chemistry and C hemistry - challengeOrdered By: Marcin Boyer on 08-10-2024 AST [Catalytic activity/Vol] 18 U/L <32 [facility] Comment on above: Hemolysis present, R esults could be affected. Lymphocytes Auto (Unsp spec) [#/Vol]Ordered By: Marcin Boyer on 08-10-2024 Lymphocytes (Bld) [#/Vol] 2.24 10*3/uL 0.83-4.51 [facility] MCV (mean corpuscular volume ) determinationOrdered By: Marcin Boyer on 08-10-2024 MCV (RBC) [Entitic vol] 85.3 fL Normal 81-99 [facility] Comment on above: Performed By: #### L 500.4050, L100.0100 #### [facility] [address] [place], [address] Mean corpuscular hemoglobin (MCH) determinationOrdered By: Marcin Boyer on 08-10-2024 MCH (RBC) [Entitic mass] 28.2 pg Normal 27.0-32.0 [facility] Comment on above: Performed By: #### L 500.4050, L100.0100 #### [facility] [address] [place], [address] Mean corpuscular hemoglobin concentration (MCHC) determinationOrdered By: Marcin Boyer on 08-10-2024 MCHC (RBC) [Mass/Vol] 33.1 g/dL Normal 32-36 [facility] Comment on above: Performed By: #### L 500.4050, L100.0100 #### [facility] [address] [place], [address] Mean platelet volume determi nationOrdered By: Marcin Boyer on 08-10-2024 Platelet mean volume (Bld) [Entitic vol] 10.7 fL Normal 6.2-12.0 [facility] Comment on above: Performed By: #### L 500.4050, L100.0100 #### [facility] [address] [place], [address] Microscopic analysis of urin e for red blood cells (RBC)Ordered By: Marcin Boyer on 08-10-2024 Microscopic analysis of urine for red blood cells (RBC) 0 SEEN /hpf 0-5 [facility] Urine RBC 0 SEEN /hpf 0-5 [facility] Monocyte percentageOrdered B y: Marcin Boyer on 08-10-2024 Monocytes/100 WBC (Bld) 9.2 % Normal 0-10 [facility] Comment on above: Performed By: #### L 500.4050, L100.0100 #### [facility] [address] [place], [address] Mucus LM Ql (Urine sed)Order ed By: Marcin Boyer on 08-10-2024 Mucus Ql (Urine sed) 1+ /hpf [facility] Neutrophil percentageOrdered By: Marcin Boyer on 08-10-2024 Neutrophils/100 WBC (Bld) 63.0 % Normal 47-70 [facility] Comment on above: Performed By: #### L 500.4050, L100.0100 #### [facility] [address] [place], [address] Nitrite Test strip Ql (U)Ord ered By: Macrin Boyer on 08-10-2024 Nitrite Ql (U) Negative Negative [facility] Nucleated red blood cell per centageOrdered By: Marcin Boyer on 08-10-2024 Nucleated RBC/100 WBC (Bld) [Ratio] 0 % 0-5 [facility] Platelet countOrdered By: Nicola Boyer on 08-10-2024 Platelets (Bld) [#/Vol] 203 10*3/uL Normal 150-450 [facility] Comment on above: Performed By: #### L 500.4050, L100.0100 #### [facility] [address] [place], [place], [id number] Potassium (Unsp spec) [Mass/ Vol]Ordered By: Marcin Boyer on 08-10-2024 Potassium [Moles/Vol] 4.1 mmol/L 3.3-5.1 [facility] Comment on above: Hemolysis present, R esults could be affected. Potassium measurement (mass/ volume)Ordered By: Marcin Boyer on 08-10-2024 Potassium (Unsp spec) [Mass/Vol] 4.1 mmol/L 3.3-5.1 [facility] Comment on above: Hemolysis present, R esults could be affected. Protein Test strip Ql (U)Ord ered By: Marcin Boyer on 08-10-2024 Protein Ql (U) 30 mg/dl High Negative [facility] Serum creatinine measurement (mass/volume)Ordered By: Marcin Boyer on 08-10-2024 Creatinine [Mass/Vol] 1.49 mg/dL High 0.70-1.20 [facility] Serum globulin measurementOr dered By: Marcin Boyer on 08-10-2024 Globulin (S) [Mass/Vol] 2.8 g/dL 2.2-4.2 [facility] Serum glucose measurement (m ass/volume)Ordered By: Marcin Boyer on 08-10-2024 Glucose [Mass/Vol] 113 mg/dL High 70-99 [facility] Serum or plasma alanine harris otransferase (ALT) measurementOrdered By: Marcin Boyer on 08-10-2024 ALT [Catalytic activity/Vol] 10 U/L <35 [facility] Serum or plasma albumin jasbir urement (mass/volume)Ordered By: Marcin Boyer on 08-10-2024 Albumin [Mass/Vol] 3.9 g/dL 3.4-4.8 [facility] Serum or plasma albumin/glob ulin mass ratioOrdered By: Marcin Boyer on 08-10-2024 Albumin/Globulin [Mass ratio] 1.4 {ratio} 0.9-2.4 [facility] Serum or plasma alkaline sandra sphatase measurementOrdered By: Marcin Boyer on 08-10-2024 ALP [Catalytic activity/Vol] 77 U/L 35-104 [facility] Serum or plasma calcium jasbir urement (mass/volume)Ordered By: Marcin Boyer on 08-10-2024 Calcium [Mass/Vol] 8.6 mg/dL 7.6-11.0 [facility] Serum or plasma urea nitroge n measurement (mass/volume)Ordered By: Marcin Boyer on 08-10-2024 Urea nitrogen [Mass/Vol] 30 mg/dL High 4-19 [facility] Sodium levelOrdered By: Marcin Boyer on 08-10-2024 Sodium [Moles/Vol] 142 mmol/L 133-145 [facility] Squamous epithelial cells de tection in urine sediment by light microscopyOrdered By: Marcin Boyer on 08-10-2024 Epithelial cells.squamous LM Ql (Urine sed) 0-5 SEEN /hpf 5-10 [facility] Total proteinOrdered By: Jody Boyer on 08-10-2024 Protein [Mass/Vol] 6.7 g/dL 5.9-8.4 [facility] Urinalysis, Completeon 08-10 BACTERIA 2+ /hpf Normal None Seen [facility] Comment on above: Order Comment: CLEAN CATCH Performed By: #### L 400.0001 ####[facility] [address] [place], [address] Mucus Ql (Urine sed) 1+ /hpf Normal [facility] Comment on above: Order Comment: CLEAN CATCH Performed By: #### L 400.0001 ####[facility] [address] [place], [address] CAST,HYALINE 0-5 SEEN Normal 0-5 [facility] Comment on above: Order Comment: CLEAN CATCH Performed By: #### L 400.0001 ####[facility] [address] [place], [address] EPI,SQUAMOUS 0-5 SEEN Normal 5-10 [facility] Comment on above: Order Comment: CLEAN CATCH Performed By: #### L 400.0001 ####[facility] [address] [place], [address] WBC 5-10 SEEN Normal 0-5 [facility] Comment on above: Order Comment: CLEAN CATCH Performed By: #### L 400.0001 ####[facility] [address] [place], [address] RBC 0 SEEN Normal 0-5 [facility] Comment on above: Order Comment: CLEAN CATCH Performed By: #### L 400.0001 ####[facility] [address] [place], [address] Urine blood detectionOrdered By: Marcin Boyer on 08-10-2024 Urine Occult Blood Negative Negative [facility] Urine clarityOrdered By: Jody Boyer on 08-10-2024 Clarity (U) Clear Clear [facility] Urine color determinationOrd ered By: Marcin Boyer on 08-10-2024 Color (U) Yellow Yellow [facility] Urine cultureOrdered By: Jody Boyer on 08-10-2024 Bacteria identified Cx Nom (U) Positive Abnormal [facility] Urine glucose detectionOrder ed By: Marcin Boyer on 08-10-2024 Glucose Ql (U) Normal mg/dl Normal [facility] Urine leukocyte esterase det ection by dipstickOrdered By: Marcin Boyer on 08-10-2024 Leukocyte esterase Test strip Ql (U) 100 /ul High Negative [facility] Urine pHOrdered By: Marcin hunt on 08-10-2024 pH (U) 6.0 [pH] 5.0 - 8.0 [facility] Urine sediment bacteria coun t by microscopy (number/high power field)Ordered By: Marcin Boyer on 08-10-2024 Bacteria LM.HPF (Urine sed) [#/Area] 2 /[HPF] None Seen [facility] Urine specific gravity measu rementOrdered By: Marcin Boyer on 08-10-2024 Specific gravity (U) [Rel density] 1.020 1.002-1.030 [facility] Urine urobilinogen measureme ntOrdered By: Marcin Boyer on 08-10-2024 Urobilinogen Ql (U) 1 mg/dl High Normal [facility] Urobilinogen Ql (U)Ordered B y: Marcin Boyer on 08-10-2024 Urobilinogen (U) [Mass/Vol] 1 mg/dL High Normal [facility] White blood cell (WBC) count Ordered By: Marcin Boyer on 08-10-2024 WBC (Bld) [#/Vol] 9.1 10*3/uL Normal 4.4-11.0 [facility] Comment on above: Performed By: #### L 500.4050, L100.0100 #### [facility] [place], [address] White blood cell countOrdere d By: Marcin Boyer on 08-10-2024 Urine WBC 5-10 SEEN /hpf 0-5 [facility] White blood cell count 5-10 SEEN /hpf 0-5 [facility] Anion gap in Serum or Plasma Ordered By: Michael Corcoran on 07-11-2024 Anion gap [Moles/Vol] 12 mmol/L 5-15 [facility] BUN/creatinine ratioOrdered By: Olindadalebijan Corcoran on 07-11-2024 Urea nitrogen/Creatinine [Mass ratio] 24.5 mg/mg High - [facility] Basic Metabolic Profile (BMP )on 07-11-2024 BUN/CRE 24.5 RATIO High 02-04 [facility] Comment on above: Performed By: #### L 500.2500, L500.4100, L501.9985 ####[facility] [address] [place], [address] Calcium [Mass/Vol] 9.1 mg/dL Normal 7.6-11.0 [facility] Comment on above: Performed By: #### L 500.2500, L500.4100, L501.9985 ####[facility] [address] [place], [address] Chloride [Moles/Vol] 105 mmol/L Normal 98-108 [facility] Comment on above: Performed By: #### L 500.2500, L500.4100, L501.9985 ####[facility] [address] [place], [address] CO2 [Moles/Vol] 22.8 mmol/L Normal 21.0-32.0 [facility] Comment on above: Performed By: #### L 500.2500, L500.4100, L501.9985 ####[facility] [address] [place], [address] Creatinine [Mass/Vol] 1.30 mg/dL High 0.70-1.20 [facility] Comment on above: Performed By: #### L 500.2500, L500.4100, L501.9985 ####[facility] [address] [place], [address] GAP 12 Normal -15 [facility] Comment on above: Performed By: #### L 500.2500, L500.4100, L501.9985 ####[facility] [address] [place], [address] GFR/1.73 sq M.predicted among non-blacks MDRD (S/P/Bld) [Vol rate/Area] 42 mL/min/{1.73_m2} Low >60 [facility] Comment on above: Result Comment: mL/m in/1.73m2 CKD-EPI Creatinine Equation (2020) Performed By: #### L 500.2500, L500.4100, L501.9985 ####[facility] [address] [place], [address] Glucose [Mass/Vol] 124 mg/dL High 70-99 [facility] Comment on above: Performed By: #### L 500.2500, L500.4100, L501.9985 ####[facility] [address] [place], [address] Potassium [Moles/Vol] 4.4 mmol/L Normal 3.3-5.1 [facility] Comment on above: Performed By: #### L 500.2500, L500.4100, L501.9985 ####[facility] [address] [place], [address] Sodium [Moles/Vol] 140 mmol/L Normal 133-145 [facility] Comment on above: Performed By: #### L 500.2500, L500.4100, L501.9985 ####[facility] [address] [place], [address] Urea nitrogen [Mass/Vol] 32 mg/dL High 4-19 [facility] Comment on above: Performed By: #### L 500.2500, L500.4100, L501.9985 ####[facility] [address] [place], [address] Calculated very low density lipoprotein (VLDL) cholesterol measurementOrdered By: Michael Corcoran on 07-11-2024 Calculated very low density lipoprotein (VLDL) cholesterol measurement 23 mg/dL 5-40 [facility] VLDL Cholesterol 23 mg/dL -40 [facility] Carbon dioxide, total [Moles /volume] in Central venous bloodOrdered By: Michael Corcoran on 07-11-2024 CO2 [Moles/Vol] 22.8 mmol/L 21.0-32.0 [facility] Chloride assayOrdered By: Olinda Corcoran on 07-11-2024 Chloride [Moles/Vol] 105 mmol/L 98-108 [facility] GFR/1.73 sq M.predicted rober g non-blacks MDRD (S/P/Bld) [Vol rate/Area]Ordered By: Michael Corcoran on 07-11-2024 Estimated GFR (MDRD) Non-Af Amer 42 Low >60 [facility] Comment on above: mL/min/1.73m2 CKD-EP I Creatinine Equation (2020) Glomerular filtration rate ( GFR) estimation/1.73 sq m using serum, plasma, or whole bOrdered By: Michael Corcoran on 07-11-2024 GFR/1.73 sq M.predicted among non-blacks MDRD (S/P/Bld) [Vol rate/Area] 42 mL/min/{1.73_m2} Low >60 [facility] Comment on above: mL/min/1.73m2 CKD-EP I Creatinine Equation (2020) Hemoglobin A1con 07-11-2024 HbA1c (Bld) [Mass fraction] 6.0 % Normal <=5.6 [facility] Comment on above: Performed By: #### L 500.2500, L500.4100, L501.9985 ####[facility] [address] [place], [address] Hemoglobin A1c percentageOrd ered By: Michael Corcoran on 07-11-2024 HbA1c (Bld) [Mass fraction] 6.0 % >5.7 [facility] Internal Medicine Office Vis nayan 07-11-2024 Internal Medicine Office Visit [facility] [address] [place] [address] [place] [address] OFFICE VISIT Date of Service: 07/11/24 MR#: [id number] Acct: [id number] Name: PAUL BARONE Rep #: [id number] : 1945 Provider: Dr. Michael hinojosa MD Age/Sex: 78/F Location: [facility] [place] Status: Signed Intake Vital Signs 01/12/24 17:54 03/20/24 11:26 07/11/24 11:06 Height 5 ft 1 in 5 ft 1 in 5 ft 1 in Weight: 203 lb BMI 38.3 BP 120/62 Blood Pressure Location Rt brachial Position Sitting Respiration 17 Pulse 60 Pulse Source Monitor Temp 96.8 F L Temp Source Temporal Pulse Oximetry (%) 98 Oxygen Delivery Method room air Intake Visit Reasons: 6 M FU Chief Complaint: 6 M FU Is patient in pain?: No Allergies Penicillins Allergy (Verified 07/11/24 11:08) Hives Medications ???Medication ???Instructions ???Recorded ???Confirmed ???Type albuterol sulfate 90 mcg/actuation 1 - 2 puff inhalation Q4H PRN TX N 12/06/21 07/11/24 Rx aerosol inhaler (Ventolin HFA) Wheezing ##1 multivitamin 1 tab PO DAILY 07/15/22 07/11/24 H istory loratadine 10 mg tablet (Claritin) 10 mg PO DAILY PRN allergies 03/1007/11/24 History biotin 1 mg capsule 1 mg PO DAILY 10/29/22 07/11/24 Hi story lidocaine-prilocaine 2.5 %-2.5 % 1 applic topical ONCE PRN port 08/0807/11/24 Rx topical cream access 30 days #30 grams Handicap Placard #1 ea 05/24/23 07/11/24 Rx Compression arm sleeve 20-30 mmHg #2 ea 06/28/23 07/11/24 Rx amlodipine 10 mg tablet 10 mg PO DAILY #90 tabs 07/29/23 0 07/11/24 Rx atorvastatin 40 mg tablet 40 mg PO DAILY #90 tabs 09/27/23 0 07/11/24 Rx anastrozole 1 mg tablet See Rx Instructions .Route 4 07/11/24 Rx .COMPLEX #90 tabs magnesium citrate 300 ml PO X1 #1 BOTTLE 11/10/23 Rx compress.stocking,knee ,reg,lrg #2 ea 01/12/24 07/11/24 Rx denosumab 60 mg/mL subcutaneous 60 mg subcut [id number] #1 mL 07/11/24 Rx syringe (Prolia) paroxetine HCl 20 mg tablet (Paxil) 20 mg PO DAILY #90 tabs 5 07/11/24 Rx apixaban 5 mg tablet (Eliquis) See Rx Instructions .Route 5 07/11/24 Rx .COMPLEX #60 tabs Have you fallen in the past year?: No PFSH Medical History (Updated 07/11/24 @ 12:[address] Michael Corcoran MD) Pain of left lower extremity Shingles Flu vaccine need Venous insufficiency of both lower extremities Cardiology follow-up encounter Osteopenia with high risk of fracture Colon cancer screening Cataract (lens) fragments in eye following cataract surgery, bilateral Screening for breast cancer Encounter for monitoring cardiotoxic drug therapy Decreased cardiac ejection fraction Encounter for monitoring cardiotoxic drug therapy Port-A-Cath in place Hypokalemia 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 CINV (chemotherapy-induced nausea and vomiting) Encounter for chemotherapy management Left thyroid nodule Encounter for education Wears dentures Wears glasses Anxiety Pulmonary embolism DVT (deep venous thrombosis) Non-smoker History of echocardiogram History of stress test Hypertension Breast cancer, left Abnormal mammogram of left breast Anxiety and depression Breast pain, left Left shoulder pain Encounter for screening for COVID-19 URI (upper respiratory infection) Chest pain Fractures involving multiple body regions Breast lump Blood clot in vein Vision problems Pneumonia Kidney stones H/O emotional problems Chronic bronchitis Asthma Arthritis Environmental allergies Surgical History History of appendectomy Hx of left mastectomy History of lymph node dissection of axilla S/P left mastectomy Hx of tubal ligation History of hysterectomy History of tonsillectomy History of shoulder surgery Family History Father Alcoholism Asthma Mother Anxiety Blood clot in vein Myocardial infarction Grandmother Blood clot in vein Myocardial infarction Brother Myocardial infarction Aunt Breast cancer Grandmother CVA (cerebral vascular accident) Daughter Suicide attempt Other Colon cancer Social History Smoking Status: Never smoker alcohol intake: never substance use type: does not use caffeine: Yes Type: carbonated beverages Number of servings: 2 what type of physical activity do you participate in: none seatbelt use: always do you feel safe at home: Yes HPI HPI Chief Complaint: 6 M FU Details: PAUL BARONE, is a 78 F who presents to the office today for follow-up of her chronic conditions. Also has some concerns. She states that she has had intermittent left lower extremity pain and swelling. Pain is typically responsive to Tylenol as (more content not included)... Normal [facility] LDL calc ser/plasOrdered By: Michael Corcoran on 07-11-2024 Cholesterol in LDL [Mass/Vol] 91 mg/dL [facility] Comment on above: Ylsildlhvn=935-238 m g/dL & Higher Dvkc=340 mg/dL or greater LDL Cholesterol, Calculated 91 mg/dL [facility] Comment on above: Hbspytiwvv=323-977 m g/dL & Higher Makt=240 mg/dL or greater Lipid Profileon 07-11-2024 CHOL:HDL 2.99 Normal [facility] Comment on above: Performed By: #### L 500.2500, L500.4100, L501.9985 ####[facility] [address] [place], [place], [phone] Cholesterol [Mass/Vol] 171 mg/dL Normal <=200 [facility] Comment on above: Result Comment: Chol esterol level, Desirable <200 mg/dL Borderline high cholesterol 200-239 mg/dL High cholesterol >=240 mg/dL Recommendations of the NCEP Adult Treatment Panel for the following risk-cutoff thresholds for the [place] population. Performed By: #### L 500.2500, L500.4100, L501.9985 ####[facility] [address] [place], [place], [id number] Cholesterol in HDL [Mass/Vol] 57 mg/dL Normal [facility] Comment on above: Result Comment: Jenny onal Cholesterol Education Program (NCEP) guidelines: <40 mg/dL: Low HDL-cholesterol (major risk factor for CHD) >= 60 mg/dL: High HDL-cholesterol (negative risk factor for CHD) HDL-cholesterol is affected by a number of factors, e.g. smoking, exercise, hormones, sex and age. Performed By: #### L 500.2500, L500.4100, L501.9985 ####[facility] [address] [place], [address] Cholesterol in LDL [Mass/Vol] 91 mg/dL Normal [facility] Comment on above: Result Comment: Bord rrcleb=472-713 mg/dL Higher Serp=797 mg/dL or greater Performed By: #### L 500.2500, L500.4100, L501.9985 ####[facility] [address] [place], [address] Cholesterol in VLDL [Mass/Vol] 23 mg/dL Normal 5-40 [facility] Comment on above: Performed By: #### L 500.2500, L500.4100, L501.9985 ####[facility] [address] [place], [address] Triglyceride [Mass/Vol] 116 mg/dL Normal [facility] Comment on above: Result Comment: The drugs N-Acetylcysteine and Metamizole may falsely depress this assay. Normal range: <150 mg/dL Borderline High: 150-199 mg/dL High: 200-499 mg/dL Very High: >500 mg/dL Performed By: #### L 500.2500, L500.4100, L501.9985 ####[facility] [address] [place], [address] Potassium (Unsp spec) [Mass/ Vol]Ordered By: Michael Corcoran on 07-11-2024 Potassium [Moles/Vol] 4.4 mmol/L 3.3-5.1 [facility] Potassium measurement (mass/ volume)Ordered By: Michael Corcoran on 07-11-2024 Potassium (Unsp spec) [Mass/Vol] 4.4 mmol/L 3.3-5.1 [facility] Screening total cholesterol/ high density lipoprotein (HDL) cholesterol ratioOrdered By: Michael Corcoran on 07-11-2024 Cholesterol.total/Choles terol in HDL [Mass ratio] 2.99 {ratio} [facility] Serum creatinine measurement (mass/volume)Ordered By: Michael Corcoran on 07-11-2024 Creatinine [Mass/Vol] 1.30 mg/dL High 0.70-1.20 [facility] Serum glucose measurement (m ass/volume)Ordered By: Michael Corcoran on 07-11-2024 Glucose [Mass/Vol] 124 mg/dL High 70-99 [facility] Serum or plasma calcium jasbir urement (mass/volume)Ordered By: Michael Corcoran on 07-11-2024 Calcium [Mass/Vol] 9.1 mg/dL 7.6-11.0 [facility] Serum or plasma cholesterol in HDL measurement (mass/volume)Ordered By: Michael Corcoran on 07-11-2024 Cholesterol in HDL [Mass/Vol] 57 mg/dL >40 [facility] Comment on above: National Cholesterol Education Program (NCEP) guidelines:<40 mg/dL: Low HDL-cholesterol (major risk factor for CHD)>= 60 mg/dL: High HDL-cholesterol (negative risk factor for CHD)HDL-cholesterol is affected by a number of factors, e.g. smoking, exercise, hormones, sex and age. Serum or plasma cholesterol measurement (mass/volume)Ordered By: Michael Corcoran on 07-11-2024 Cholesterol [Mass/Vol] 171 mg/dL <201 [facility] Comment on above: Cholesterol level, D esirable <200 mg/dLBorderline high cholesterol 200-239 mg/dLHigh cholesterol >=240 mg/dLRecommendations of the NCEP Adult Treatment Panel for the following risk-cutoff thresholds for the [place] population. Serum or plasma urea nitroge n measurement (mass/volume)Ordered By: Michael Corcoran on 07-11-2024 Urea nitrogen [Mass/Vol] 32 mg/dL High 4-19 [facility] Sodium levelOrdered By: Juan Corcoran on 07-11-2024 Sodium [Moles/Vol] 140 mmol/L 133-145 [facility] Triglycerides measurementOrd ered By: Michael Corcoran on 07-11-2024 Triglyceride [Mass/Vol] 116 mg/dL <199 [facility] Comment on above: The drugs N-Acetylcy steine and Metamizole may falsely depress this assay. Normal range: <150 mg/dLBorderline High: 150-199 mg/dLHigh: 200-499 mg/dLVery High: >500 mg/dL Absolute neutrophil countOrd ered By: Haresh Saenz on 03-20-2024 Neutrophils (Bld) [#/Vol] 4.1 10*3/uL 2.0-7.7 [facility] Albumin to globulin ratioOrd ered By: Haresh Saenz on 03-20-2024 Albumin/Globulin [Mass ratio] 0.9 {ratio} 0.9-2.4 [facility] Basophil percentageOrdered B y: Haresh Saenz on 03-20-2024 Basophils/100 WBC (Bld) 0.3 % 0-1 [facility] Bilirubin, totalOrdered By: Haresh Saenz on 03-20-2024 Bilirubin [Mass/Vol] 0.60 mg/dL 0.20-1.00 [facility] Comment on above: For patients on eltr ombopag therapy, use of Dimension Geronimo TBIL is not recommended. Blood urea nitrogen (BUN)/cr eatinine ratioOrdered By: Haresh Saenz on 03-20-2024 Urea nitrogen/Creatinine [Mass ratio] 21.1 mg/mg High 10-20 [facility] CBC W/Diff, Automatedon Absolute Lymph 1.78 X10 3/uL Normal 0.83-4.51 [facility] Comment on above: Performed By: #### L 500.4050, L100.0100, L504.2610 #### [facility] [address] [place], [address] Absolute Neut 4.1 X10 3/uL Normal 2.0-7.7 [facility] Comment on above: Performed By: #### L 500.4050, L100.0100, L504.2610 #### [facility] [address] [place], [address] Basophils/100 WBC (Bld) 0.3 % Normal 0-1 [facility] Comment on above: Performed By: #### L 500.4050, L100.0100, L504.2610 #### [facility] [address] [place], [address] Eosinophils/100 WBC (Bld) 3.6 % Normal 0-5 [facility] Comment on above: Performed By: #### L 500.4050, L100.0100, L504.2610 #### [facility] [address] [place], [address] Erythrocyte distribution width (RBC) [Ratio] 14.0 % Normal 11.6-14.6 [facility] Comment on above: Performed By: #### L 500.4050, L100.0100, L504.2610 #### [facility] [address] [place], [address] Hematocrit (Bld) [Volume fraction] 41.9 % Normal 37-47 [facility] Comment on above: Performed By: #### L 500.4050, L100.0100, L504.2610 #### [facility] [address] [place], [address] Hemoglobin (Bld) [Mass/Vol] 13.4 g/dL Normal 12.0-15.0 [facility] Comment on above: Performed By: #### L 500.4050, L100.0100, L504.2610 #### [facility] [address] [place], [address] IG% 0.300 Normal 0.0-0.9 [facility] Comment on above: Result Comment: IG% - Immature Granulocytes (promyelocytes, myelocytes and metamyelocytes) > 1% indicates that a LEFT SHIFT is Present. Performed By: #### L 500.4050, L100.0100, L504.2610 #### [facility] [address] [place], [address] Lymphocytes/100 WBC (Bld) 27.0 % Normal 19-41 [facility] Comment on above: Performed By: #### L 500.4050, L100.0100, L504.2610 #### [facility] [address] [place], [address] MCH (RBC) [Entitic mass] 27.5 pg Normal 27.0-32.0 [facility] Comment on above: Performed By: #### L 500.4050, L100.0100, L504.2610 #### [facility] [address] [place], [address] MCHC (RBC) [Mass/Vol] 32.0 g/dL Normal 32-36 [facility] Comment on above: Performed By: #### L 500.4050, L100.0100, L504.2610 #### [facility] [address] [place], [address] MCV (RBC) [Entitic vol] 85.9 fL Normal 81-99 [facility] Comment on above: Performed By: #### L 500.4050, L100.0100, L504.2610 #### [facility] [address] [place], [address] Monocytes/100 WBC (Bld) 6.7 % Normal 0-10 [facility] Comment on above: Performed By: #### L 500.4050, L100.0100, L504.2610 #### [facility] [address] [place], [address] Neutrophils/100 WBC (Bld) 62.1 % Normal 47-70 [facility] Comment on above: Performed By: #### L 500.4050, L100.0100, L504.2610 #### [facility] [address] [place], [address] Nucleated RBC (Bld) [#/Vol] 0 10*3/uL Normal 0-5 [facility] Comment on above: Performed By: #### L 500.4050, L100.0100, L504.2610 #### [facility] [address] [place], [address] Platelet mean volume (Bld) [Entitic vol] 10.2 fL Normal 6.2-12.0 [facility] Comment on above: Performed By: #### L 500.4050, L100.0100, L504.2610 #### [facility] [address] [place], [address] Platelets (Bld) [#/Vol] 189 10*3/uL Normal 150-450 [facility] Comment on above: Performed By: #### L 500.4050, L100.0100, L504.2610 #### [facility] [address] [place], [address] RBC (Bld) [#/Vol] 4.88 10*6/uL Normal 4.2-5.[address] [facility] Comment on above: Performed By: #### L 500.4050, L100.0100, L504.2610 #### [facility] [address] [place], [address] RDW SD 43.9 fl Normal 35.1-43.9 [facility] Comment on above: Performed By: #### L 500.4050, L100.0100, L504.2610 #### [facility] [address] [place], [address] WBC (Bld) [#/Vol] 6.6 10*3/uL Normal 4.4-11.0 [facility] Comment on above: Performed By: #### L 500.4050, L100.0100, L504.2610 #### [facility] [address] [place], [address] Carbon dioxide measurementOr dered By: Haresh Saenz on 03-20-2024 CO2 [Moles/Vol] 22.0 mmol/L 21.0-32.0 [facility] Chloride measurementOrdered By: Haresh Saenz on 03-20-2024 Chloride [Moles/Vol] 108 mmol/L High 98-107 [facility] Comprehensive Metabolic Prof ilon 03-20-2024 Albumin [Mass/Vol] 3.3 g/dL Normal 3.2-5.0 [facility] Comment on above: Order Comment: 1 Performed By: #### L 500.4050, L100.0100, L504.2610 #### [facility] [address] [place], [address] Albumin/Globulin [Mass ratio] 0.9 {ratio} Normal 0.9-2.4 [facility] Comment on above: Order Comment: 1 Performed By: #### L 500.4050, L100.0100, L504.2610 #### [facility] [address] [place], [address] ALK P 87 U/L Normal 45-117 [facility] Comment on above: Order Comment: 1 Performed By: #### L 500.4050, L100.0100, L504.2610 #### [facility] [address] [place], [address] ALT [Catalytic activity/Vol] 16 U/L Normal 13-56 [facility] Comment on above: Order Comment: 1 Performed By: #### L 500.4050, L100.0100, L504.2610 #### [facility] [address] [place], [address] AST [Catalytic activity/Vol] 14 U/L Low 15-37 [facility] Comment on above: Order Comment: 1 Performed By: #### L 500.4050, L100.0100, L504.2610 #### [facility] [address] [place], [address] Bilirubin [Mass/Vol] 0.60 mg/dL Normal 0.20-1.00 [facility] Comment on above: Order Comment: 1 Result Comment: For patients on eltrombopag therapy, use of Dimension Geronimo TBIL is not recommended. Performed By: #### L 500.4050, L100.0100, L504.2610 #### [facility] [address] [place], [address] BUN/CRE 21.1 RATIO High 10-20 [facility] Comment on above: Order Comment: 1 Performed By: #### L 500.4050, L100.0100, L504.2610 #### [facility] [address] [place], [address] CA,Total 8.0 mg/dL Low 8.5-10.1 [facility] Comment on above: Order Comment: 1 Performed By: #### L 500.4050, L100.0100, L504.2610 #### [facility] [address] [place], [address] Chloride [Moles/Vol] 108 mmol/L High 98-107 [facility] Comment on above: Order Comment: 1 Performed By: #### L 500.4050, L100.0100, L504.2610 #### [facility] [address] [place], [address] CO2 [Moles/Vol] 22.0 mmol/L Normal 21.0-32.0 [facility] Comment on above: Order Comment: 1 Performed By: #### L 500.4050, L100.0100, L504.2610 #### [facility] [address] [place], [address] Creatinine [Mass/Vol] 1.28 mg/dL High 0.55-1.02 [facility] Comment on above: Order Comment: 1 Result Comment: The validity of the calculated GFR GFRAA in patients over 70 years has not been determined. Clinical correlation is essential. Performed By: #### L 500.4050, L100.0100, L504.2610 #### [facility] [address] [place], [address] ECRCL 37.33 ml/min Normal [facility] Comment on above: Order Comment: 1 Performed By: #### L 500.4050, L100.0100, L504.2610 #### [facility] [address] [place], [address] EST GFR - AA 52 mL/min Low >60 [facility] Comment on above: Order Comment: 1 Result Comment: Afri can Andorran GFR Calc Performed By: #### L 500.4050, L100.0100, L504.2610 #### [facility] [address] [place], [address] GAP 8 Normal 5-15 [facility] Comment on above: Order Comment: 1 Performed By: #### L 500.4050, L100.0100, L504.2610 #### [facility] [address] [place], [address] GFR/1.73 sq M.predicted among non-blacks MDRD (S/P/Bld) [Vol rate/Area] 43 mL/min/{1.73_m2} Low >60 [facility] Comment on above: Order Comment: 1 Result Comment: Non- GFR Calc Performed By: #### L 500.4050, L100.0100, L504.2610 #### [facility] [address] [place], [address] Globulin (S) [Mass/Vol] 3.6 g/dL Normal 2.2-4.2 [facility] Comment on above: Order Comment: 1 Performed By: #### L 500.4050, L100.0100, L504.2610 #### [facility] [address] [place], [address] Glucose [Mass/Vol] 221 mg/dL High 74-106 [facility] Comment on above: Order Comment: 1 Result Comment: Gluc ose result greater than or equal to 200 mg/dL suggests DIABETES MELLITUS per A.D.A. criteria. Performed By: #### L 500.4050, L100.0100, L504.2610 #### [facility] [address] [place], [address] Potassium [Moles/Vol] 3.8 mmol/L Normal 3.5-5.1 [facility] Comment on above: Order Comment: 1 Performed By: #### L 500.4050, L100.0100, L504.2610 #### [facility] [address] [place], [address] Sodium [Moles/Vol] 139 mmol/L Normal 136-145 [facility] Comment on above: Order Comment: 1 Performed By: #### L 500.4050, L100.0100, L504.2610 #### [facility] [address] [place], [address] T PROT 6.9 g/dL Normal 6.4-8.2 [facility] Comment on above: Order Comment: 1 Performed By: #### L 500.4050, L100.0100, L504.2610 #### [facility] [address] [place], [address] Urea nitrogen [Mass/Vol] 27 mg/dL High 7-18 [facility] Comment on above: Order Comment: 1 Performed By: #### L 500.4050, L100.0100, L504.2610 #### [facility] [place], [address] Eosinophil percentageOrdered By: Haresh Saenz on 03-20-2024 Eosinophils/100 WBC (Bld) 3.6 % 0-5 [facility] Erythrocyte distribution wid th ratioOrdered By: Haresh Saenz on 03-20-2024 Erythrocyte distribution width (RBC) [Ratio] 14.0 % 11.6-14.6 [facility] Erythrocyte distribution wid th standard deviationOrdered By: Haresh Saenz on 03-20-2024 Erythrocyte distribution width (RBC) [Entitic vol] 43.9 fL 35.1-43.9 [facility] Estimated glomerular filtrat ion rate (GFR) AmericanOrdered By: Haresh Saenz on 03-20-2024 Estimated GFR (MDRD) Amer 52 mL/min Low >60 [facility] Comment on above: GFR Calc Estimation of creatinine mansoor aranceOrdered By: Haresh Saenz on 03-20-2024 Estimated Creatinine Clearance Calc 37.33 ml/min [facility] Glomerular filtration rate ( GFR) estimationOrdered By: Haresh Saenz on 03-20-2024 Estimated GFR (MDRD) Non-Af Amer 43 mL/min Low >60 [facility] Comment on above: Non- GFR Calc Glucose measurementOrdered B y: Haresh Saenz on 03-20-2024 Glucose [Mass/Vol] 221 mg/dL High 74-106 [facility] Comment on above: Glucose result great er than or equal to 200 mg/dLsuggests DIABETES MELLITUS per A.D.A. criteria. Hematocrit Auto (Bld) [Volum e fraction]Ordered By: Haresh Saenz on 03-20-2024 Hematocrit (Bld) [Volume fraction] 41.9 % 37-47 [facility] Hemoglobin measurementOrdere d By: Haresh Saenz on 03-20-2024 Hemoglobin (Bld) [Mass/Vol] 13.4 g/dL 12.0-15.0 [facility] Immature granulocytes/100 WB C Auto (Bld)Ordered By: Haresh Saenz on 12-03-2024 Immature granulocytes/100 WBC (Bld) 0.300 % 0.0-0.9 [facility] Comment on above: IG% - Immature Granu locytes (promyelocytes, myelocytes and metamyelocytes) > 1% indicates that a LEFT SHIFT is Present. LDHon 03-20-2024 LDH 161 U/L Normal 84-246 [facility] Comment on above: Order Comment: 1 Performed By: #### L 500.4050, L100.0100, L504.2610 #### [facility] [address] [place], [address] Laboratory - Chemistry and C hemistry - challengeOrdered By: Haresh Saenz on 03-20-2024 AST [Catalytic activity/Vol] 14 U/L Low 15-37 [facility] Lactate dehydrogenase (LDH) measurementOrdered By: Haresh Saenz on 03-20-2024 LDH [Catalytic activity/Vol] 161 U/L 84-246 [facility] Lymphocytes Auto (Unsp spec) [#/Vol]Ordered By: Haresh Saenz on 03-20-2024 Lymphocytes (Bld) [#/Vol] 1.78 10*3/uL 0.83-4.51 [facility] Lymphocytes/100 WBC Auto (Un sp spec)Ordered By: Haresh Saenz on 03-20-2024 Lymphocytes/100 WBC (Bld) 27.0 % 19-41 [facility] MCV (mean corpuscular volume ) determinationOrdered By: Haresh Saenz on 03-20-2024 MCV (RBC) [Entitic vol] 85.9 fL 81-99 [facility] Mean corpuscular hemoglobin (MCH) determinationOrdered By: Haresh Saenz on 03-20-2024 MCH (RBC) [Entitic mass] 27.5 pg 27.0-32.0 [facility] Mean corpuscular hemoglobin concentration (MCHC) determinationOrdered By: Haresh Saenz on 03-20-2024 MCHC (RBC) [Mass/Vol] 32.0 g/dL 32-36 [facility] Mean platelet volume determi nationOrdered By: Haresh Saenz on 03-20-2024 Platelet mean volume (Bld) [Entitic vol] 10.2 fL 6.2-12.0 [facility] Monocyte percentageOrdered B y: Haresh Saenz on 03-20-2024 Monocytes/100 WBC (Bld) 6.7 % 0-10 [facility] Neutrophil percentageOrdered By: Haresh Saenz on 03-20-2024 Neutrophils/100 WBC (Bld) 62.1 % 47-70 [facility] Nucleated red blood cell per centageOrdered By: Haresh Saenz on 03-20-2024 Nucleated RBC/100 WBC (Bld) [Ratio] 0 % 0-5 [facility] Oncology Visit Reporton 12 Oncology Visit Report [facility] [place] [facility] [address] [place] [address] OFFICE VISIT Date of Service: 03/20/24 1126 MR#: [id number] Acct: [id number] Name: PAUL ABRONE Rep #: [id number] : 1945 From: Haresh Saenz MD Age/Sex: 78/F Location: [facility] [place] Status: Signed HPI Subjective Date of Service 03/20/24 Chief Complaint F/u for Left breast cancer. History of Present Illness 78 y.o.woman developed L breast pain in June 2021. Had a mammogram on 10/05/2021 which showed multiple nodules in L breast suggestive of malignancy. US on the same day showed 2 masses in the L breast. She saw Dr. Saab, had US guided biopsy of L breast mass and L axillary node on 10/27/2021. 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 CT C/A/P with contrast obtained 11/06/21 demonstrated L breast mass and enlarged left axillary lymph node, bilateral parapelvic cysts and bilateral pulmonary emboli. Bone scan obtained 11/10/2021 showed no evidence of bony metastasis. Pretreatment echocardiogram 11/06/2021 shows normal LV size and function, EF 65%, normal global longitudinal strain and stage I diastolic dysfunction. PET/CT obtained 11/20/21 demonstrated multifocal uptake in left breast, SUV 5.4 largest individual focus 25.2 mm, hypermetabolic activity within the left axilla, SUV 5, largest areas 18.7mm, increased uptake in left thyroid and no evidence of distant metastatic disease. MRI breast 11/23/21 demonstrated multifocal disease within the left breast and findings compatible with inflammatory breast cancer. She was diagnosed with clinically Stage IIIB(cT4 cN2 M0) multifocal breast disease. Started TCHP C1 on 12/02/2021. Had diarrhea controlled with Imodium, bone pain controlled with Aleve. Left breast mass and axillary node resolved after 2nd cycle. Had diarrhea for about 2 weeks after C4, went to ER and needed IV fluids so dose of Carboplatin and Taxotere were decrease for C5. Got C6 on 03/17/2022. Had L breast MRM with L axillary dissection on 04/23/2022, showed 7 foci of invasive ductal carcinoma, largest measured 2.5 x 1.5 x 1.5 cm, negative margins, no skin or lymphovascular invasion, 1/10 LN positive for macrometastases, 2/10 LN positive for micrometastases. Got adjuvant Perjeta and Herceptin analogue 05/13/2022-12/09/22. Began anastrozole 08/27/22. Comes for follow up. She feels well. [facility] Medical History Shingles Flu vaccine need Venous insufficiency of both lower extremities Cardiology follow-up encounter Osteopenia with high risk of fracture Colon cancer screening Cataract (lens) fragments in eye following cataract surgery, bilateral Screening for breast cancer Encounter for monitoring cardiotoxic drug therapy Decreased cardiac ejection fraction Encounter for monitoring cardiotoxic drug therapy Port-A-Cath in place Hypokalemia 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 CINV (chemotherapy-induced nausea and vomiting) Encounter for chemotherapy management Left thyroid nodule Encounter for education Wears dentures Wears glasses Anxiety Pulmonary embolism DVT (deep venous thrombosis) Non-smoker History of echocardiogram History of stress test Hypertension Breast cancer, left Abnormal mammogram of left breast Anxiety and depression Breast pain, left Left shoulder pain Encounter for screening for COVID-19 URI (upper respiratory infection) Chest pain Fractures involving multiple body regions Breast lump Blood clot in vein Vision problems Pneumonia Kidney stones H/O emotional problems Chronic bronchitis Asthma Arthritis Environmental allergies Surgical History History of appendectomy Hx of left mastectomy History of lymph node dissection of axilla S/P left mastectomy Hx of tubal ligation History of hysterectomy History of tonsillectomy History of shoulder surgery Family History Father Alcoholism Asthma Mother Anxiety Blood clot in vein Myocardial infarction Grandmother Blood clot in vein Myocardial infarction Brother Myocardial infarction Aunt Breast cancer Grandmother CVA (cerebral vascular accident) Daughter Suicide attempt Other Colon cancer Social History Smoking Status: Never smoker alcohol intake: never substance use type: does not use caffeine: Yes Type: carbonated beverages Number of servings: 2 what type of physical activity do you participate in: none seatbelt use: always do you feel safe at home: Yes Intake Vital Signs 09/27/23 11:11 03/20/24 11:26 Height 5 ft 1 in 5 ft 1 in Weight: 90.407 kg BMI 37.6 BP 129/76 H Blood Pressure Location Lt brachial Position Sitting Re (more content not included)... Normal [facility] Platelet countOrdered By: Carolyn Saenz on 03-20-2024 Platelets (Bld) [#/Vol] 189 10*3/uL 150-450 [facility] Potassium measurementOrdered By: Haresh Saenz on 03-20-2024 Potassium [Moles/Vol] 3.8 mmol/L 3.5-5.1 [facility] RBC Auto (Bld) [#/Vol]Ordere d By: Haresh Saenz on 03-20-2024 RBC (Bld) [#/Vol] 4.88 10*6/uL 4.2-5.[address] [facility] Serum anion gap measurementO rdered By: Haresh Saenz on 03-20-2024 Anion gap [Moles/Vol] 8 mmol/L 5-15 [facility] Serum globulin measurementOr dered By: Haresh Saenz on 03-20-2024 Globulin (S) [Mass/Vol] 3.6 g/dL 2.2-4.2 [facility] Serum or plasma alanine harris otransferase (ALT) measurementOrdered By: Haresh Saenz on 03-20-2024 ALT [Catalytic activity/Vol] 16 U/L 13-56 [facility] Serum or plasma albumin jasbir urement (mass/volume)Ordered By: Haresh Saenz on 03-20-2024 Albumin [Mass/Vol] 3.3 g/dL 3.2-5.0 [facility] Serum or plasma alkaline sandra sphatase measurementOrdered By: Haresh Saenz on 03-20-2024 ALP [Catalytic activity/Vol] 87 U/L 45-117 [facility] Serum or plasma calcium jasbir urement (mass/volume)Ordered By: Haresh Saenz on 03-20-2024 Calcium [Mass/Vol] 8.0 mg/dL Low 8.5-10.1 [facility] Serum or plasma creatinine m easurement (mass/volume)Ordered By: Haresh Saenz on 03-20-2024 Creatinine [Mass/Vol] 1.28 mg/dL High 0.55-1.02 [facility] Comment on above: The validity of the calculated GFR & GFRAA in patients over 70 years has not been determined. Clinical correlation is essential. Serum or plasma urea nitroge n measurement (mass/volume)Ordered By: Haresh Saenz on 03-20-2024 Urea nitrogen [Mass/Vol] 27 mg/dL High 7-18 [facility] Sodium levelOrdered By: Sukumar Saenz on 03-20-2024 Sodium [Moles/Vol] 139 mmol/L 136-145 [facility] Total proteinOrdered By: Edd Saenz on 03-20-2024 Protein [Mass/Vol] 6.9 g/dL 6.4-8.2 [facility] White blood cell (WBC) count Ordered By: Haresh Saenz on 03-20-2024 WBC (Bld) [#/Vol] 6.6 10*3/uL 4.4-11.0 [facility] Cardiology Visit Reporton Cardiology Visit Report [facility] [address] [place], [place] [address] OFFICE VISIT Date of Service: 01/27/24 MR#: [id number] Acct: [id number] Name: PAUL BARONE Rep #: [id number] : 1945 Provider: Dr. Shahriar Tucker MD Age/Sex: 78/F Location: [facility] [place] Status: Signed HPI HPI History of Present Illness Surgical H P: No Details: This is the second visit for a 76-year-old lady who developed a left breast pain in June 2021 mammogram suggest the left breast malignancy for which pathology demonstrated invasive ductal carcinoma ER/TX positive for which she eventually underwent treatment left breast modified radical mastectomy left axillary dissection in April 2022. She started adjuvant Perjeta and Herceptin and began anastrozole this August. Previous echocardiograms have demonstrated ejection fraction estimated to be 65% with global longitudinal strain score 18-16.6 and -19.5. Her most recent echocardiogram demonstrated an ejection fraction of 65% with a global longitudinal strain score of 19.1. She denies any chest pain or shortness of breath or paroxysmal nocturnal dyspnea or pedal edema no neck arm or jaw discomfort suggest angina no dizziness or diaphoresis near syncope or syncope. Her physical exam is unremarkable and her echocardiograms were reviewed. Intake Vital Signs 11/10/23 10:06 01/12/24 17:54 01/27/24 10:53 Height 5 ft 1.5 in 5 ft 1 in 5 ft 1 in Weight: 198 lb BMI 37.4 BP 131/84 H Blood Pressure Location Rt brachial Position Sitting Respiration 16 Pulse 70 Pulse Source NIBP Temp 98.0 F Temperature Source Temporal Artery Pulse Oximetry (%) 97 Oxygen Delivery Method room air Intake Visit Reasons: 6 M FU Pathology Tech Required: No Accompanied by: Son Is patient in pain?: No Allergies Penicillins Allergy (Verified 01/27/24 10:55) Hives Medications ???Medication ???Instructions ???Recorded ???Confirmed ???Type albuterol sulfate 90 mcg/actuation 1 - 2 puff inhalation Q4H PRN PRN 12/06/21 01/18/24 Rx aerosol inhaler (Ventolin HFA) Wheezing ##1 multivitamin 1 tab PO DAILY 07/15/22 01/18/24 History loratadine 10 mg tablet (Claritin) 10 mg PO DAILY PRN allergies 08/26/22 01/18/24 History biotin 1 mg capsule 1 mg PO DAILY 10/29/22 01/18/24 History lidocaine-prilocaine 2.5 %-2.5 % 1 applic topical ONCE PRN port 01/19/23 01/18/24 Rx topical cream access 30 days #30 grams paroxetine HCl 20 mg tablet (Paxil) 20 mg PO DAILY #90 tabs 04/28/23 01/18/24 Rx Handicap Placard #1 ea 05/24/23 01/27/24 Rx Compression arm sleeve 20-30 mmHg #2 ea 06/28/23 01/27/24 Rx amlodipine 10 mg tablet 10 mg PO DAILY #90 tabs 07/29/23 01/18/24 Rx atorvastatin 40 mg tablet 40 mg PO DAILY #90 tabs 09/27/23 01/18/24 Rx anastrozole 1 mg tablet See Rx Instructions .Route 11/09/23 01/18/24 Rx .COMPLEX #90 tabs magnesium citrate 300 ml PO X1 #1 BOTTLE 11/10/23 01/27/24 Rx valacyclovir 1 gram tablet 1,000 mg PO TID 7 days #21 tabs 11/10/23 01/27/24 Rx apixaban 5 mg tablet (Eliquis) See Rx Instructions .Route 01/12/24 01/18/24 Rx .COMPLEX #60 tabs compress.stocking,knee ,reg,lrg #2 ea 01/12/24 01/27/24 Rx denosumab 60 mg/mL subcutaneous 60 mg subcut [id number] #1 mL 01/17/24 01/18/24 Rx syringe (Prolia) Have you fallen in the past year?: No PFSH Medical History Shingles Flu vaccine need Venous insufficiency of both lower extremities Cardiology follow-up encounter Osteopenia with high risk of fracture Colon cancer screening Cataract (lens) fragments in eye following cataract surgery, bilateral Screening for breast cancer Encounter for monitoring cardiotoxic drug therapy Decreased cardiac ejection fraction Encounter for monitoring cardiotoxic drug therapy Port-A-Cath in place Hypokalemia 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 CINV (chemotherapy-induced nausea and vomiting) Encounter for chemotherapy management Left thyroid nodule Encounter for education Wears dentures Wears glasses Anxiety Pulmonary embolism DVT (deep venous thrombosis) Non-smoker History of echocardiogram History of stress test Hypertension Breast cancer, left Abnormal mammogram of left breast Anxiety and depression Breast pain, left Left shoulder pain Encounter for screening for COVID-19 URI (upper respiratory infection) Chest pain Fractures involving multiple body regions Breast lump Blood clot in vein Vision problems Pneumonia Kidney stones H/O emotional problems Chronic bronchitis Asthma Arthritis Environmental allergies Surgical History History of appendectomy Hx of left mastectomy History of lymph node dissection of axilla S/P left mastectomy Hx of tubal ligation H (more content not included)... Normal [facility] Office Visit Reporton 2023 Office Visit Report [facility] [address] [place] [address] OFFICE VISIT Date of Service: 01/27/24 MR#: [id number] Acct: [id number] Patient: PAUL BARONE Rep #: [id number] : 1945 Provider: REBECCA NURSE Age/Sex: 78/F Location: [facility] [place] Status: Signed with Addenda ADDENDUM by Lakshmi Maradiaga on 01/30/24 at 1436 Office Procedure Documentation entered by Lakshmi Maradiaga 01/30/24 14:36: Injections Site of injection: Sub-Q Is this a patient provided medication?: Yes Additional Details: Dispensing pharmacy is [facility]. Office Meds Prolia 60 mg/mL subcutaneous syringe Performing Provider: TYSHAWN Garces Performing Location: [facility] Administered by: Leni Barrios MA on 01/27/24 12:59 Dose Route Admin Location Dispensed Lot Number Expiration Date ND Man ufacturer 60 mg subcut right subQ 1 mL [id number] 06/15/26 39500-625-41 AMGEN Date cc: * Signed Intake Vital Signs 01/12/24 17:54 01/27/24 11:25 Height 5 ft 1 in 5 ft 1 in Weight: 199 lb BMI 37.5 BP 130/80 H Blood Pressure Location Rt brachial Position Sitting Respiration 16 Pulse 68 Pulse Source Monitor Temp 97.2 F L Temp Source Temporal Pulse Oximetry (%) 98 Oxygen Delivery Method room air Intake Visit Reasons: PROLIA Chief Complaint: prolia injection Allergies Penicillins Allergy (Verified 01/27/24 10:55) Hives Have you fallen in the past year?: No Office Procedures Injections Site of injection: Sub-Q Is this a patient provided medication?: No Office Meds Prolia 60 mg/mL subcutaneous syringe Performing Provider: TYSHAWN Garces Performing Location: [facility] Administered by: Leni Barrios MA on 01/27/24 12:59 Dose Route Admin Location Dispensed Lot Number Expiration Date NDC Man ufacturer 60 mg subcut right subQ 1 mL [id number] 06/15/26 95924-076-57 AMGEN Assessment and Plan Assessment and Plan Orders: Orders Prolia Injection 01/27/24 M81.0 - Age-related osteoporosis without current pathological fracture Clinical Quality Measures Falls Risk Screening/Assistive Devices Have you fallen in the past year?: No 01/30/24 0832 Date Deena Crespo Signature: Date (if applicable) CC: Normal [facility] SCREEN MAMM (CAD) W/[facility] Carmine 01-17-2024 SCREEN MAMM (CAD) W/[facility] R [facility] Imaging Services [address] [place], [place] [id number] SCREEN MAMM (CAD) W/[facility] R MR#: [id number] Acct: [id number] Name: PAUL BARONE Rep #: [id number] : 1945 F 78 From: Augustin angela MD PCP: Dr. Michael Corcoran MD Status: [facility] Study: SCREEN MAMM (CAD) W/PHANI UNI R Date of Exam: 1 Exam# [id number] Ordering Dr: Haresh Saenz MD [id number] MAMMOGRAPHY - UNILATERAL SCREENING: RIGHT BREAST REASON FOR EXAM: Female, 78 years old. Routine annual screening examination (unilateral). PERTINENT HISTORY: Personal history of breast cancer. Prior left mastectomy. Aunt with breast cancer. TECHNIQUE: Digital unilateral breast phani (3D mammographic acquisition) in the CC and MLO projections. 2-D mediolateral oblique (MLO) and craniocaudad (CC) views of both breasts were obtained. CAD: Full Field Digital Mammography with Computer Added Detection was performed. COMPARISON: Comparison is made with prior study January 10, 2023 and October 05, 2021. FINDINGS: Breast Composition: There are scattered areas of fibroglandular density. There are no dominant masses or suspicious calcifications. No other significant abnormalities are identified. There has been no significant change since the prior study. BI/SCREEN MAMM (CAD) W/[facility] UN[facility] R IMPRESSION: Stable unilateral screening mammogram. Yearly follow-up mammogram recommended. (A) ASSESSMENT CATEGORY: BIRADS Category 1: Negative. A letter regarding these results will be sent to the patient by the facility within 30 days. Approximately 10% of breast cancers are not detected by mammography. A normal mammogram should not delay biopsy of a clinically suspicious abnormality. [id number] Electronically Signed: Augustin Ruiz MD at 12:16 EDT Reading Location ID and State: [facility] / [place] , Service support , CC: Dr. Michael Corcoran MD; Dr. Haresh Saenz MD Ammunition Officer: Signed Normal [facility] Internal Medicine Office Vis nayan 01-12-2024 Internal Medicine Office Visit [facility] [address] [place] [address] [place] [address] OFFICE VISIT Date of Service: 01/12/24 MR#: [id number] Acct: [id number] Name: PAUL BARONE Rep #: [id number] : 1945 Provider: Dr. Michael hinojosa MD Age/Sex: 78/F Location: [facility] [place] Status: Signed Intake Vital Signs 11/10/23 10:06 01/12/24 17:54 Height 5 ft 1.5 in 5 ft 1 in Weight: 199 lb BMI 37.5 BP 130/80 H Blood Pressure Location Rt brachial Position Sitting Respiration 16 Pulse 68 Pulse Source Monitor Temp 97.2 F L Temp Source Temporal Pulse Oximetry (%) 98 Oxygen Delivery Method room air Intake Visit Reasons: MED REFILLS Chief Complaint: Follow-up chronic conditions Pathology Tech Required: No Is patient in pain?: No Allergies Penicillins Allergy (Verified 01/12/24 17:47) Hives Medications ???Medication ???Instructions ???Recorded ???Confirmed ???Type albuterol sulfate 90 mcg/actuation 1 - 2 puff inhalation Q4H PRN PRN 12/06/21 01/12/24 Rx aerosol inhaler (Ventolin HFA) Wheezing ##1 multivitamin 1 tab PO DAILY 07/15/22 01/12/24 History loratadine 10 mg tablet (Claritin) 10 mg PO DAILY PRN allergies 08/26/22 01/12/24 History biotin 1 mg capsule 1 mg PO DAILY 10/29/22 01/12/24 History lidocaine-prilocaine 2.5 %-2.5 % 1 applic topical ONCE PRN port 01/19/23 01/12/24 Rx topical cream access 30 days #30 grams paroxetine HCl 20 mg tablet (Paxil) 20 mg PO DAILY #90 tabs 04/28/23 01/12/24 Rx Handicap Placard #1 ea 05/24/23 01/12/24 Rx denosumab 60 mg/mL subcutaneous 60 mg subcut [id number] #1 mL 06/22/23 01/12/24 Rx syringe (Prolia) Compression arm sleeve 20-30 mmHg #2 ea 06/28/23 01/12/24 Rx amlodipine 10 mg tablet 10 mg PO DAILY #90 tabs 07/29/23 01/12/24 Rx atorvastatin 40 mg tablet 40 mg PO DAILY #90 tabs 09/27/23 01/12/24 Rx anastrozole 1 mg tablet See Rx Instructions .Route 11/09/23 01/12/24 Rx .COMPLEX #90 tabs magnesium citrate 300 ml PO X1 #1 BOTTLE 11/10/23 01/12/24 Rx valacyclovir 1 gram tablet 1,000 mg PO TID 7 days #21 tabs 11/10/23 01/12/24 Rx apixaban 5 mg tablet (Eliquis) See Rx Instructions .Route 01/12/24 01/12/24 Rx .COMPLEX #60 tabs compress.stocking,knee ,reg,lrg #2 ea 01/12/24 01/12/24 Rx Have you fallen in the past year?: No Nurse's Note: Is requesting a refill of only a 1 month supply of eliquis due to cost. [facility] Medical History (Updated 01/12/24 @ 18:[address] Michael Corcoran MD) Flu vaccine need Venous insufficiency of both lower extremities Cardiology follow-up encounter Osteopenia with high risk of fracture Colon cancer screening Cataract (lens) fragments in eye following cataract surgery, bilateral Screening for breast cancer Encounter for monitoring cardiotoxic drug therapy Decreased cardiac ejection fraction Encounter for monitoring cardiotoxic drug therapy Port-A-Cath in place Hypokalemia 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 CINV (chemotherapy-induced nausea and vomiting) Encounter for chemotherapy management Left thyroid nodule Encounter for education Wears dentures Wears glasses Anxiety Pulmonary embolism DVT (deep venous thrombosis) Non-smoker History of echocardiogram History of stress test Hypertension Breast cancer, left Abnormal mammogram of left breast Anxiety and depression Breast pain, left Left shoulder pain Encounter for screening for COVID-19 URI (upper respiratory infection) Chest pain Fractures involving multiple body regions Breast lump Blood clot in vein Vision problems Pneumonia Kidney stones H/O emotional problems Chronic bronchitis Asthma Arthritis Environmental allergies Surgical History History of appendectomy Hx of left mastectomy History of lymph node dissection of axilla S/P left mastectomy Hx of tubal ligation History of hysterectomy History of tonsillectomy History of shoulder surgery Family History Father Alcoholism Asthma Mother Anxiety Blood clot in vein Myocardial infarction Grandmother Blood clot in vein Myocardial infarction Brother Myocardial infarction Aunt Breast cancer Grandmother CVA (cerebral vascular accident) Daughter Suicide attempt Other Colon cancer Social History Smoking Status: Never smoker alcohol intake: never substance use type: does not use caffeine: Yes Type: carbonated beverages Number of servings: 2 what type of physical activity do you participate in: none seatbelt use: always do you feel safe at home: Yes HPI HPI Chief Complaint: Follow-up chronic conditions Details: PAUL BARONE, is a 78 F who presents to the office today for follow-up of her (more content not included)... Normal [facility] Abdomen/Pelvis W IV Cont ONL Yon 11-10-2023 Abdomen/Pelvis W IV Cont ONLY [facility] Imaging Services [address] [place], [place] [id number] Abdomen/Pelvis W IV Cont ONLY MR#: [id number] Acct: [id number] Name: PAUL BARONE Rep #: [id number] : 1945 F 77 From: Jess rosas MD PCP: Dr. Michael Corcoran MD Status: REG ER Study: Abdomen/Pelvis W IV Cont ONLY Date of Exam: Exam# [id number] Ordering Dr: Emeka Morales REDRYING MACHINE OPERATOR-C [id number] HISTORY: LLQ abdominal pain. TECHNIQUE: Helically acquired images were obtained of the abdomen and pelvis after the intravenous administration of 100mL Isovue-370. A radiation dose optimization technique was used for this scan. 427 images. COMPARISON: 07/13/2023. FINDINGS: LOWER CHEST: Left mastectomy with a subcentimeter lymph node again seen in the left chest. Lung bases unremarkable. BOWEL: Bowel nondilated. Interval appendectomy. Moderate stool in the colon. Colonic diverticulosis without focal inflammatory change observed. PERITONEUM: No significant ascites. LIVER: No enhancing mass. GALLBLADDER/BILIARY TREE: Multiple large gallstones with mild gallbladder wall edema. SPLEEN/PANCREAS: Homogeneous and nonenlarged. 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 KIDNEYS: No hydronephrosis. 4 cm right renal cyst again seen. Left renal sinus cysts. VESSELS: No abdominal aortic aneurysm. Mild atherosclerosis of the abdominal aorta and its major branches. Chronic mild calcifications of the left external iliac and femoral veins. PELVIC ORGANS: Absent uterus. ABDOMINAL WALL: Mild anterior scarring. 1.7 cm left inguinal lymph node. BONES: Degenerative change. CT/Abdomen/Pelvis W IV Cont ONLY IMPRESSION: Cholelithiasis with mild gallbladder wall edema, which can be seen with acute cholecystitis. Moderate stool in the colon. Colonic diverticulosis without acute diverticulitis. Mildly enlarged left inguinal lymph node, nonspecific. Electronically Signed: Jess Downey MD at 13:14 EDT Reading Location ID and State: [facility] / [place] Tel , Service support , CC: TYSHAWN Morales; Dr. Michael Corcoran MD Ammunition Officer: Signed Normal [facility] CBC W/Diff, Automatedon 10-17 Absolute Lymph 1.87 X10 3/uL Normal 0.83-4.51 [facility] Comment on above: Performed By: #### L 100.0100, L500.4050, L501.2450 ####[facility] [address] [place], [address] Absolute Neut 5.9 X10 3/uL Normal 2.0-7.7 [facility] Comment on above: Performed By: #### L 100.0100, L500.4050, L501.2450 ####[facility] [address] [place], [address] Basophils/100 WBC (Bld) 0.6 % Normal 0-1 [facility] Comment on above: Performed By: #### L 100.0100, L500.4050, L501.2450 ####[facility] [address] [place], [address] Eosinophils/100 WBC (Bld) 2.6 % Normal 0-5 [facility] Comment on above: Performed By: #### L 100.0100, L500.4050, L501.2450 ####[facility] [address] [place], [address] Erythrocyte distribution width (RBC) [Ratio] 14.2 % Normal 11.6-14.6 [facility] Comment on above: Performed By: #### L 100.0100, L500.4050, L501.2450 ####[facility] [address] [place], [address] Hematocrit (Bld) [Volume fraction] 40.8 % Normal 37-47 [facility] Comment on above: Performed By: #### L 100.0100, L500.4050, L501.2450 ####[facility] [address] [place], [address] Hemoglobin (Bld) [Mass/Vol] 13.1 g/dL Normal 12.0-15.0 [facility] Comment on above: Performed By: #### L 100.0100, L500.4050, L501.2450 ####[facility] [address] [place], [address] IG% 0.300 Normal 0.0-0.9 [facility] Comment on above: Result Comment: IG% - Immature Granulocytes (promyelocytes, myelocytes and metamyelocytes) > 1% indicates that a LEFT SHIFT is Present. Performed By: #### L 100.0100, L500.4050, L501.2450 ####[facility] [address] [place], [address] Lymphocytes/100 WBC (Bld) 21.4 % Normal 19-41 [facility] Comment on above: Performed By: #### L 100.0100, L500.4050, L501.2450 ####[facility] [address] [place], [address] MCH (RBC) [Entitic mass] 27.0 pg Normal 27.0-32.0 [facility] Comment on above: Performed By: #### L 100.0100, L500.4050, L501.2450 ####[facility] [address] [place], [address] MCHC (RBC) [Mass/Vol] 32.1 g/dL Normal 32-36 [facility] Comment on above: Performed By: #### L 100.0100, L500.4050, L501.2450 ####[facility] [address] [place], [address] MCV (RBC) [Entitic vol] 84.0 fL Normal 81-99 [facility] Comment on above: Performed By: #### L 100.0100, L500.4050, L501.2450 ####[facility] [address] [place], [address] Monocytes/100 WBC (Bld) 7.7 % Normal 0-10 [facility] Comment on above: Performed By: #### L 100.0100, L500.4050, L501.2450 ####[facility] [address] [place], [address] Neutrophils/100 WBC (Bld) 67.4 % Normal 47-70 [facility] Comment on above: Performed By: #### L 100.0100, L500.4050, L501.2450 ####[facility] [address] [place], [address] Nucleated RBC (Bld) [#/Vol] 0 10*3/uL Normal 0-5 [facility] Comment on above: Performed By: #### L 100.0100, L500.4050, L501.2450 ####[facility] [address] [place], [address] Platelet mean volume (Bld) [Entitic vol] 9.9 fL Normal 6.2-12.0 [facility] Comment on above: Performed By: #### L 100.0100, L500.4050, L501.2450 ####[facility] [address] [place], [address] Platelets (Bld) [#/Vol] 192 10*3/uL Normal 150-450 [facility] Comment on above: Performed By: #### L 100.0100, L500.4050, L501.2450 ####[facility] [address] [place], [address] RBC (Bld) [#/Vol] 4.86 10*6/uL Normal 4.2-5.[address] [facility] Comment on above: Performed By: #### L 100.0100, L500.4050, L501.2450 ####[facility] [address] [place], [address] RDW SD 43.4 fl Normal 35.1-43.9 [facility] Comment on above: Performed By: #### L 100.0100, L500.4050, L501.2450 ####[facility] [address] [place], [address] WBC (Bld) [#/Vol] 8.7 10*3/uL Normal 4.4-11.0 [facility] Comment on above: Performed By: #### L 100.0100, L500.4050, L501.2450 ####[facility] [address] [place], [address] Comprehensive Metabolic Prof ilon 11-10-2023 Albumin [Mass/Vol] 3.3 g/dL Normal 3.2-5.0 [facility] Comment on above: Performed By: #### L 100.0100, L500.4050, L501.2450 ####[facility] [address] [place], [address] Albumin/Globulin [Mass ratio] 0.8 {ratio} Low 0.9-2.4 [facility] Comment on above: Performed By: #### L 100.0100, L500.4050, L501.2450 ####[facility] [address] [place], [address] ALK P 102 U/L Normal 45-117 [facility] Comment on above: Performed By: #### L 100.0100, L500.4050, L501.2450 ####[facility] [address] [place], [address] ALT [Catalytic activity/Vol] 14 U/L Normal 13-56 [facility] Comment on above: Performed By: #### L 100.0100, L500.4050, L501.2450 ####[facility] [address] [place], [address] AST [Catalytic activity/Vol] 13 U/L Low 15-37 [facility] Comment on above: Performed By: #### L 100.0100, L500.4050, L501.2450 ####[facility] [address] [place], [address] Bilirubin [Mass/Vol] 0.70 mg/dL Normal 0.20-1.00 [facility] Comment on above: Result Comment: For patients on eltrombopag therapy, use of Dimension Geronimo TBIL is not recommended. Performed By: #### L 100.0100, L500.4050, L501.2450 ####[facility] [address] [place], [address] BUN/CRE 18.5 RATIO Normal 10-20 [facility] Comment on above: Performed By: #### L 100.0100, L500.4050, L501.2450 ####[facility] [address] [place], [address] CA,Total 8.9 mg/dL Normal 8.5-10.1 [facility] Comment on above: Performed By: #### L 100.0100, L500.4050, L501.2450 ####[facility] [address] [place], [address] Chloride [Moles/Vol] 107 mmol/L Normal 98-107 [facility] Comment on above: Performed By: #### L 100.0100, L500.4050, L501.2450 ####[facility] [address] [place], [address] CO2 [Moles/Vol] 29.0 mmol/L Normal 21.0-32.0 [facility] Comment on above: Performed By: #### L 100.0100, L500.4050, L501.2450 ####[facility] [address] [place], [address] Creatinine [Mass/Vol] 1.19 mg/dL High 0.55-1.02 [facility] Comment on above: Result Comment: The validity of the calculated GFR GFRAA in patients over 70 years has not been determined. Clinical correlation is essential. Performed By: #### L 100.0100, L500.4050, L501.2450 ####[facility] [address] [place], [address] ECRCL 40.62 ml/min Normal [facility] Comment on above: Performed By: #### L 100.0100, L500.4050, L501.2450 ####[facility] [address] [place], [address] EST GFR - AA 57 mL/min Low >60 [facility] Comment on above: Result Comment: Afri can Andorran GFR Calc Performed By: #### L 100.0100, L500.4050, L501.2450 ####[facility] [address] [place], [address] GAP 4 Low 5-15 [facility] Comment on above: Performed By: #### L 100.0100, L500.4050, L501.2450 ####[facility] [address] [place], [address] GFR/1.73 sq M.predicted among non-blacks MDRD (S/P/Bld) [Vol rate/Area] 47 mL/min/{1.73_m2} Low >60 [facility] Comment on above: Result Comment: Non- GFR Calc Performed By: #### L 100.0100, L500.4050, L501.2450 ####[facility] [address] [place], [address] Globulin (S) [Mass/Vol] 3.9 g/dL Normal 2.2-4.2 [facility] Comment on above: Performed By: #### L 100.0100, L500.4050, L501.2450 ####[facility] [address] [place], [address] Glucose [Mass/Vol] 120 mg/dL High 74-106 [facility] Comment on above: Result Comment: Fast ing Glucose result from 100 to 125 mg/dL suggests IMPAIRED HOMEOSTASIS per A.D.A. criteria. Performed By: #### L 100.0100, L500.4050, L501.2450 ####[facility] [address] [place], [address] Potassium [Moles/Vol] 3.9 mmol/L Normal 3.5-5.1 [facility] Comment on above: Performed By: #### L 100.0100, L500.4050, L501.2450 ####[facility] [address] [place], [address] Sodium [Moles/Vol] 140 mmol/L Normal 136-145 [facility] Comment on above: Performed By: #### L 100.0100, L500.4050, L501.2450 ####[facility] [address] [place], [address] T PROT 7.2 g/dL Normal 6.4-8.2 [facility] Comment on above: Performed By: #### L 100.0100, L500.4050, L501.2450 ####[facility] [address] [place], [address] Urea nitrogen [Mass/Vol] 22 mg/dL High 7-18 [facility] Comment on above: Performed By: #### L 100.0100, L500.4050, L501.2450 ####[facility] [address] [place], [address] Emergency Department Summary on 11-10-2023 Emergency Department Summary [facility] Medical Records Department [address] [place] [address] Emergency Department Summary 11/10/23 MR#: [id number] Acct: [id number] Name: PAUL BARONE Rep #: [id number] : 1945 77 From: Emeka VILLAGRAN PCP: Dr. Michael Corcoran MD Status:DEP ER Location: ED [facility] History of Present Illness Chief Complaint: General Illness Narrative Narrative: Patient is a 77-year-old female with history of obesity, history of breast cancer, pulmonary embolus on Eliquis, hypertension, asthma who presents to the emergency department for multiple complaints. Patient states that she has been feeling unwell over the last several days. Patient noticed a rash to her left abdomen, she also has left abdominal pain, as well as constipation. 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 Patient states the biggest concern is her abdomen pain. Patient denies any fever or chills. Patient states that she is straining and still unable to have a bowel movement. She does have history of bowel obstruction she is concerned. Here with her daughter. Denies any fever or chills. [facility] Medical History Cardiology follow-up encounter Osteopenia with high risk of fracture Colon cancer screening Cataract (lens) fragments in eye following cataract surgery, bilateral Screening for breast cancer Encounter for monitoring cardiotoxic drug therapy Decreased cardiac ejection fraction Encounter for monitoring cardiotoxic drug therapy Port-A-Cath in place Hypokalemia 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 CINV (chemotherapy-induced nausea and vomiting) Encounter for chemotherapy management Left thyroid nodule Encounter for education Wears dentures Wears glasses Anxiety Pulmonary embolism DVT (deep venous thrombosis) Non-smoker History of echocardiogram History of stress test Hypertension Breast cancer, left Abnormal mammogram of left breast Anxiety and depression Breast pain, left Left shoulder pain Encounter for screening for COVID-19 URI (upper respiratory infection) Chest pain Fractures involving multiple body regions Breast lump Blood clot in vein Vision problems Pneumonia Kidney stones H/O emotional problems Chronic bronchitis Asthma Arthritis Environmental allergies Home Medications ???Medication ???Instructions ???Recorded ???Last Taken ???Type albuterol sulfate 90 mcg/actuation 1 - 2 puff inhalation Q4H PRN PRN 12/06/21 Unknown Rx aerosol inhaler (Ventolin HFA) Wheezing ##1 multivitamin 1 tab PO DAILY 07/15/22 07/11/23 History loratadine 10 mg tablet (Claritin) 10 mg PO DAILY PRN allergies 08/26/22 07/17/22 History biotin 1 mg capsule 1 mg PO DAILY 10/29/22 07/11/23 History lidocaine-prilocaine 2.5 %-2.5 % 1 applic topical ONCE PRN port 01/19/23 Unknown Rx topical cream access 30 days #30 grams apixaban 5 mg tablet (Eliquis) See Rx Instructions .Route 04/28/23 05/29/23 Rx .COMPLEX #180 tabs paroxetine HCl 20 mg tablet (Paxil) 20 mg PO DAILY #90 tabs 04/28/23 Unknown Rx Handicap Placard #1 ea 05/24/23 Unknown Rx denosumab 60 mg/mL subcutaneous 60 mg subcut [id number] #1 mL 06/22/23 Unknown Rx syringe (Prolia) Compression arm sleeve 20-30 mmHg #2 ea 06/28/23 Unknown Rx amlodipine 10 mg tablet 10 mg PO DAILY #90 tabs 07/29/23 Unknown Rx atorvastatin 40 mg tablet 40 mg PO DAILY #90 tabs 09/27/23 Unknown Rx anastrozole 1 mg tablet See Rx Instructions .Route 11/09/23 Unknown Rx .COMPLEX #90 tabs magnesium citrate 300 ml PO X1 #1 BOTTLE 11/10/23 Unknown Rx valacyclovir 1 gram tablet 1,000 mg PO TID 7 days #21 tabs 11/10/23 Unknown Rx Allergy/AdvReac Type Severity Reaction Status Date / Time Penicillins Allergy Hives Verified 11/10/23 10:09 Family History Father Alcoholism Asthma Mother Anxiety Blood clot in vein Myocardial infarction Grandmother Blood clot in vein Myocardial infarction Brother Myocardial infarction Aunt Breast cancer Grandmother CVA (cerebral vascular accident) Daughter Suicide attempt Other Colon cancer Surgical History History of appendectomy Hx of left mastectomy History of lymph node dissection of axilla S/P left mastectomy Hx of tubal ligation History of hysterectomy History of tonsillectomy History of shoulder surgery Social History Smoking Status: Never smoker alcohol intake: never substance use type: does not use caffeine: Yes Type: carbonated beverages Number of servings: 2 what type of physical activity do you participate in: none seatbelt use: alwa (more content not included)... Normal [facility] Lipaseon 11-10-2023 Lipase [Catalytic activity/Vol] 33 U/L Normal 13-75 [facility] Comment on above: Result Comment: Katie muir note: LIPASE revised reference range effective 22. New Lipase methodology. Expected to produce lower values than the previous assay method. NEW Reference Range: 13 - 75 U/L Performed By: #### L 100.0100, L500.4050, L501.2450 ####[facility] [address] [place], [address] Urinalysis, Completeon 11-09 EPI,SQUAMOUS 0-5 SEEN Normal 5-10 [facility] Comment on above: Order Comment: CLEAN CATCH Performed By: #### L 400.0001 ####[facility] [address] [place], [address] RBC 0-5 SEEN Normal 0-5 [facility] Comment on above: Order Comment: CLEAN CATCH Performed By: #### L 400.0001 ####[facility] [address] [place], [address] WBC 0-5 SEEN Normal 0-5 [facility] Comment on above: Order Comment: CLEAN CATCH Performed By: #### L 400.0001 ####[facility] [address] [place], [address] BACTERIA 0 SEEN Normal None Seen [facility] Comment on above: Order Comment: CLEAN CATCH Performed By: #### L 400.0001 ####[facility] [address] [place], [address] Mucus Ql (Urine sed) 0 SEEN Normal [facility] Comment on above: Order Comment: CLEAN CATCH Performed By: #### L 400.0001 ####[facility] [address] [place], [address] Bilirubin directOrdered By: Haresh Saenz on 09-27-2023 Bilirubin.direct [Mass/Vol] 0.12 mg/dL 0.00-0.30 [facility] Cholesterol measurementOrder ed By: Shahriar Tucker on 09-27-2023 Cholesterol [Mass/Vol] 235 mg/dL High <200 [facility] Comment on above: <200 mg/dL Desirable 200-240 mg/dL Borderline >240 mg/dL High Risk High density lipoprotein (HD L) measurementOrdered By: Shahriar Tucker on 09-27-2023 Cholesterol in HDL [Mass/Vol] 47 mg/dL >40 [facility] Comment on above: The drugs N-Acetylcy steine and Metamizole may falsely depress this assay. Reference Range HDL <40 mg/dL Low HDL Cholesterol HDL >or= 60 mg/dL High HDL Cholesterol Low density lipoprotein (LDL ) cholesterol measurementOrdered By: Shahriar Tucker on 09-27-2023 Cholesterol in LDL [Mass/Vol] 154 mg/dL High 0-130 [facility] Triglycerides measurementOrd ered By: Shahriar Tucker on 09-27-2023 Triglyceride [Mass/Vol] 168 mg/dL <199 [facility] Comment on above: The drugs N-Acetylcy steine and Metamizole may falsely depress this assay.Serum Triglycerides Reference Interval Normal <150 mg/dL Borderline high 150 - 199 mg/dL High 200 - 499 mg/dL Very High > or = 500 mg/dL Very low density lipoprotein (VLDL) cholesterol measurementOrdered By: Shahriar Tucker on 09-27-2023 Very low density lipoprotein (VLDL) cholesterol measurement 34 mg/dL 5-40 [facility] VLDL Cholesterol 34 mg/dL 5-40 [facility] Absolute lymphocyte countOrd ered By: Ritesh Cook on 07-20-2023 Lymphocytes Auto (Unsp spec) [#/Vol] 1.58 10*3/uL 0.83-4.51 [facility] Automated lymphocyte count a s percentage of total leukocytesOrdered By: Ritesh Cook on 07-20-2023 Lymphocytes/100 WBC Auto (Unsp spec) 12.5 % 19-41 [facility] Basophil percentageOrdered B y: Ritesh Cook on 07-20-2023 Basophils/100 WBC (Bld) 0.4 % 0-1 [facility] Bilirubin [Mass/Vol] 0.60 mg/dL 0.20-1.00 [facility] Comment on above: For patients on eltr ombopag therapy, use of Dimension [place] TBIL is not recommended. Chloride [Moles/Vol] 107 mmol/L 98-107 [facility] Eosinophils/100 WBC (Bld) 2.3 % 0-5 [facility] Glucose [Mass/Vol] 134 mg/dL 74-106 [facility] Comment on above: Fasting Glucose resu lt greater than or equal to 126 mg/dL suggests DIABETES MELLITUS per A.D.A. criteria. Hemoglobin (Bld) [Mass/Vol] 13.0 g/dL 12.0-15.0 [facility] Monocytes/100 WBC (Bld) 8.0 % 0-10 [facility] Neutrophils (Bld) [#/Vol] 9.6 10*3/uL 2.0-7.7 [facility] Neutrophils/100 WBC (Bld) 75.7 % 47-70 [facility] Potassium [Moles/Vol] 3.4 mmol/L 3.5-5.1 [facility] Protein [Mass/Vol] 6.8 g/dL 6.4-8.2 [facility] Sodium [Moles/Vol] 141 mmol/L 136-145 [facility] WBC (Bld) [#/Vol] 12.7 10*3/uL 4.4-11.[address] [facility] Determination of erythrocyte mean corpuscular volume (MCV)Ordered By: Ritesh Cook on 07-20-2023 MCV (RBC) [Entitic vol] 86.7 fL 81-99 [facility] Erythrocyte distribution wid th ratioOrdered By: Ritesh Cook on 07-20-2023 Erythrocyte distribution width (RBC) [Ratio] 14.8 % 11.6-14.6 [facility] Erythrocyte distribution wid th standard deviationOrdered By: Ritesh Cook on 07-20-2023 Erythrocyte distribution width (RBC) [Entitic vol] 47.7 fL 35.1-43.9 [facility] Hematocrit Auto (Bld) [Volum e fraction]Ordered By: Ritesh Cook on 07-20-2023 Hematocrit (Bld) [Volume fraction] 40.9 % 37-47 [facility] Immature granulocytes/100 WB C Auto (Bld)Ordered By: Ritesh Cook on 07-20-2023 Immature granulocytes/100 WBC (Bld) 1.100 % 0.0-0.9 [facility] Comment on above: IG% - Immature Granu locytes (promyelocytes, myelocytes and metamyelocytes) > 1% indicates that a LEFT SHIFT is Present. Laboratory - Chemistry and C hemistry - challengeOrdered By: Ritesh Cook on 07-20-2023 Albumin/Globulin [Mass ratio] 0.6 {ratio} 0.9-2.4 [facility] ALP [Catalytic activity/Vol] 73 U/L 45-117 [facility] ALT [Catalytic activity/Vol] 8 U/L 13-56 [facility] CO2 [Moles/Vol] 28.0 mmol/L 21.0-32.0 [facility] Globulin (S) [Mass/Vol] 4.2 g/dL 2.2-4.2 [facility] Urea nitrogen/Creatinine [Mass ratio] 20.3 mg/mg 10-20 [facility] Laboratory - Hematology and Cell countsOrdered By: Ritesh Cook on 07-20-2023 MCH (RBC) [Entitic mass] 27.5 pg 27.0-32.0 [facility] MCHC (RBC) [Mass/Vol] 31.8 g/dL 32-36 [facility] Nucleated RBC/100 WBC (Bld) [Ratio] 0 % 0-5 [facility] Platelet mean volume (Bld) [Entitic vol] 10.2 fL 6.2-12.0 [facility] Platelets (Bld) [#/Vol] 298 10*3/uL 150-450 [facility] No Panel InformationOrdered By: Ritesh Cook on 07-20-2023 Estimated GFR (MDRD) Amer 57 mL/min >60 [facility] Comment on above: GFR Calc Estimated GFR (MDRD) Non-Af Amer 47 mL/min >60 [facility] Comment on above: Non- GFR Calc RBC Auto (Bld) [#/Vol]Ordere d By: Ritesh Cook on 07-20-2023 RBC (Bld) [#/Vol] 4.72 10*6/uL 4.2-5.[address] [facility] Serum or plasma calcium jasbir urement (mass/volume)Ordered By: Ritesh Cook on 07-20-2023 Calcium [Mass/Vol] 8.8 mg/dL 8.5-10.1 [facility] Serum or plasma creatinine m easurement (mass/volume)Ordered By: Ritesh Cook on 07-20-2023 Creatinine [Mass/Vol] 1.18 mg/dL 0.55-1.02 [facility] Comment on above: The validity of the calculated GFR & GFRAA in patients over 70 years has not been determined. Clinical correlation is essential. Serum or plasma urea nitroge n measurement (mass/volume)Ordered By: Ritesh Cook on 07-20-2023 Urea nitrogen [Mass/Vol] 24 mg/dL 7-18 [facility] Thin prep Papanicolaou smear with manual screeningOrdered By: Ritesh Cook on 07-20-2023 Thin prep Papanicolaou smear with manual screening 2.6 g/dL 3.2-5.0 [facility] Thin prep Papanicolaou smear with manual screening 9 U/L 15-37 [facility] Thin prep Papanicolaou smear with manual screening 6 5-15 [facility] Absolute lymphocyte countOrd ered By: Bertram Ibarra on 07-15-2023 Lymphocytes Auto (Unsp spec) [#/Vol] 0.91 10*3/uL 0.83-4.51 [facility] Automated lymphocyte count a s percentage of total leukocytesOrdered By: Bertram Ibarra on 07-15-2023 Lymphocytes/100 WBC Auto (Unsp spec) 7.3 % 19-41 [facility] Basophil percentageOrdered B y: Bertram Ibarra on 07-15-2023 Basophils/100 WBC (Bld) 0.2 % 0-1 [facility] Chloride [Moles/Vol] 108 mmol/L 98-107 [facility] Eosinophils/100 WBC (Bld) 0.1 % 0-5 [facility] Glucose [Mass/Vol] 128 mg/dL 74-106 [facility] Comment on above: Fasting Glucose resu lt greater than or equal to 126 mg/dL suggests DIABETES MELLITUS per A.D.A. criteria. Hemoglobin (Bld) [Mass/Vol] 10.7 g/dL 12.0-15.0 [facility] Monocytes/100 WBC (Bld) 7.6 % 0-10 [facility] Neutrophils (Bld) [#/Vol] 10.5 10*3/uL 2.0-7.7 [facility] Neutrophils/100 WBC (Bld) 84.3 % 47-70 [facility] Potassium [Moles/Vol] 3.9 mmol/L 3.5-5.1 [facility] Sodium [Moles/Vol] 137 mmol/L 136-145 [facility] WBC (Bld) [#/Vol] 12.5 10*3/uL 4.4-11.[address] [facility] Determination of erythrocyte mean corpuscular volume (MCV)Ordered By: Bertram Ibarra on 07-15-2023 MCV (RBC) [Entitic vol] 87.8 fL 81-99 [facility] Erythrocyte distribution wid th ratioOrdered By: Bertram Ibarra on 07-15-2023 Erythrocyte distribution width (RBC) [Ratio] 14.8 % 11.6-14.6 [facility] Erythrocyte distribution wid th standard deviationOrdered By: Bertram Ibarra on 07-15-2023 Erythrocyte distribution width (RBC) [Entitic vol] 47.7 fL 35.1-43.9 [facility] Hematocrit Auto (Bld) [Volum e fraction]Ordered By: Bertram Ibarra on 07-15-2023 Hematocrit (Bld) [Volume fraction] 33.7 % 37-47 [facility] Immature granulocytes/100 WB C Auto (Bld)Ordered By: Bertram Ibarra on 07-15-2023 Immature granulocytes/100 WBC (Bld) 0.500 % 0.0-0.9 [facility] Comment on above: IG% - Immature Granu locytes (promyelocytes, myelocytes and metamyelocytes) > 1% indicates that a LEFT SHIFT is Present. Laboratory - Chemistry and C hemistry - challengeOrdered By: Bertram Ibarra on 07-15-2023 CO2 [Moles/Vol] 22.0 mmol/L 21.0-32.0 [facility] Urea nitrogen/Creatinine [Mass ratio] 21.9 mg/mg 10-20 [facility] Laboratory - Hematology and Cell countsOrdered By: Bertram Ibarra on 07-15-2023 MCH (RBC) [Entitic mass] 27.9 pg 27.0-32.0 [facility] MCHC (RBC) [Mass/Vol] 31.8 g/dL 32-36 [facility] Nucleated RBC/100 WBC (Bld) [Ratio] 0 % 0-5 [facility] Platelet mean volume (Bld) [Entitic vol] 10.7 fL 6.2-12.0 [facility] Platelets (Bld) [#/Vol] 137 10*3/uL 150-450 [facility] No Panel InformationOrdered By: Bertram Ibarra on 07-15-2023 Estimated Creatinine Clearance Calc 26.28 ml/min [facility] Estimated GFR (MDRD) Amer 34 mL/min >60 [facility] Comment on above: GFR Calc Estimated GFR (MDRD) Non-Af Amer 28 mL/min >60 [facility] Comment on above: Non- GFR Calc RBC Auto (Bld) [#/Vol]Ordere d By: Bertram Ibarra on 07-15-2023 RBC (Bld) [#/Vol] 3.84 10*6/uL 4.2-5.[address] [facility] Serum or plasma calcium jasbir urement (mass/volume)Ordered By: Bertram Ibarra on 07-15-2023 Calcium [Mass/Vol] 8.1 mg/dL 8.5-10.1 [facility] Serum or plasma creatinine m easurement (mass/volume)Ordered By: Bertram Ibarra on 07-15-2023 Creatinine [Mass/Vol] 1.87 mg/dL 0.55-1.02 [facility] Comment on above: The validity of the calculated GFR & GFRAA in patients over 70 years has not been determined. Clinical correlation is essential. Serum or plasma urea nitroge n measurement (mass/volume)Ordered By: Bertram Ibarra on 07-15-2023 Urea nitrogen [Mass/Vol] 41 mg/dL 7-18 [facility] Thin prep Papanicolaou smear with manual screeningOrdered By: Bertram Ibarra on 07-15-2023 Thin prep Papanicolaou smear with manual screening 7 5-15 [facility] Blood manual differential co mment interpretation (narrative result)Ordered By: Bertram Ibarra on 07-14-2023 Manual differential comment Ammon (Bld) [Interp] SCANNED [facility] Absolute lymphocyte countOrd ered By: Thao Gustafson on 07-13-2023 Lymphocytes Auto (Unsp spec) [#/Vol] 0.63 10*3/uL 0.83-4.51 [facility] Automated lymphocyte count a s percentage of total leukocytesOrdered By: Thao Gustafson on 07-13-2023 Lymphocytes/100 WBC Auto (Unsp spec) 3.5 % 19-41 [facility] Basophil percentageOrdered B y: Thao Gustafson on 07-13-2023 Basophil percentage 0-5 SEEN /hpf 0-5 [facility] Basophils/100 WBC (Bld) 0.3 % 0-1 [facility] Bilirubin [Mass/Vol] 1.00 mg/dL 0.20-1.00 [facility] Comment on above: For patients on eltr ombopag therapy, use of Dimension [place] TBIL is not recommended. Chloride [Moles/Vol] 101 mmol/L 98-107 [facility] Eosinophils/100 WBC (Bld) 0.0 % 0-5 [facility] Glucose [Mass/Vol] 219 mg/dL 74-106 [facility] Comment on above: Glucose result great er than or equal to 200 mg/dLsuggests DIABETES MELLITUS per A.D.A. criteria. Hemoglobin (Bld) [Mass/Vol] 13.9 g/dL 12.0-15.0 [facility] Lactate [Moles/Vol] 1.9 mmol/L 0.4-2.[address] [facility] Monocytes/100 WBC (Bld) 6.2 % 0-10 [facility] Neutrophils (Bld) [#/Vol] 15.9 10*3/uL 2.0-7.7 [facility] Neutrophils/100 WBC (Bld) 89.4 % 47-70 [facility] Potassium [Moles/Vol] 3.6 mmol/L 3.5-5.1 [facility] Protein [Mass/Vol] 7.4 g/dL 6.4-8.2 [facility] Sodium [Moles/Vol] 136 mmol/L 136-145 [facility] WBC (Bld) [#/Vol] 17.8 10*3/uL 4.4-11.[address] [facility] Bilirubin Test strip Ql (U)O rdered By: Thao Gustafson on 07-13-2023 Bilirubin Ql (U) Negative Negative [facility] Determination of erythrocyte mean corpuscular volume (MCV)Ordered By: Thao Gustafson on 07-13-2023 MCV (RBC) [Entitic vol] 84.9 fL 81-99 [facility] Erythrocyte distribution wid th ratioOrdered By: Thao Gustafson on 07-13-2023 Erythrocyte distribution width (RBC) [Ratio] 13.8 % 11.6-14.6 [facility] Erythrocyte distribution wid th standard deviationOrdered By: Thao Gustafson on 07-13-2023 Erythrocyte distribution width (RBC) [Entitic vol] 42.6 fL 35.1-43.9 [facility] Hematocrit Auto (Bld) [Volum e fraction]Ordered By: Thao Gustafson on 07-13-2023 Hematocrit (Bld) [Volume fraction] 42.6 % 37-47 [facility] Immature granulocytes/100 WB C Auto (Bld)Ordered By: Thao Gustafson on 07-13-2023 Immature granulocytes/100 WBC (Bld) 0.600 % 0.0-0.9 [facility] Comment on above: IG% - Immature Granu locytes (promyelocytes, myelocytes and metamyelocytes) > 1% indicates that a LEFT SHIFT is Present. Ketones Test strip Ql (U)Ord ered By: Thao Gustafson on 07-13-2023 Ketones Ql (U) 5 mg/dl Negative [facility] Laboratory - Chemistry and C hemistry - challengeOrdered By: Thao Gustafson on 07-13-2023 Albumin/Globulin [Mass ratio] 0.9 {ratio} 0.9-2.4 [facility] ALP [Catalytic activity/Vol] 92 U/L 45-117 [facility] ALT [Catalytic activity/Vol] 14 U/L 13-56 [facility] CO2 [Moles/Vol] 27.0 mmol/L 21.0-32.0 [facility] Globulin (S) [Mass/Vol] 3.8 g/dL 2.2-4.2 [facility] Urea nitrogen/Creatinine [Mass ratio] 15.0 mg/mg 10-20 [facility] Laboratory - Hematology and Cell countsOrdered By: Thao Gustafson on 07-13-2023 MCH (RBC) [Entitic mass] 27.7 pg 27.0-32.0 [facility] MCHC (RBC) [Mass/Vol] 32.6 g/dL 32-36 [facility] Nucleated RBC/100 WBC (Bld) [Ratio] 0 % 0-5 [facility] Platelet mean volume (Bld) [Entitic vol] 10.1 fL 6.2-12.0 [facility] Platelets (Bld) [#/Vol] 180 10*3/uL 150-450 [facility] Mucus LM Ql (Urine sed)Order ed By: Thao Gustafson on 07-13-2023 Mucus Ql (Urine sed) 1+ /hpf [facility] Nitrite Test strip Ql (U)Ord ered By: Thao Gustafson on 07-13-2023 Nitrite Ql (U) Negative Negative [facility] No Panel InformationOrdered By: Thao Gustafson on 07-13-2023 Urine RBC 0-5 SEEN /hpf 0-5 [facility] Estimated Creatinine Clearance Calc 40.96 ml/min [facility] Estimated GFR (MDRD) Amer 56 mL/min >60 [facility] Comment on above: GFR Calc Estimated GFR (MDRD) Non-Af Amer 46 mL/min >60 [facility] Comment on above: Non- GFR Calc Protein Test strip Ql (U)Ord ered By: Thao Gustafson on 07-13-2023 Protein Ql (U) 100 mg/dl Negative [facility] RBC Auto (Bld) [#/Vol]Ordere d By: Thao Gustafson on 07-13-2023 RBC (Bld) [#/Vol] 5.02 10*6/uL 4.2-5.[address] [facility] Serum or plasma calcium jasbir urement (mass/volume)Ordered By: Thao Gustafson on 07-13-2023 Calcium [Mass/Vol] 9.1 mg/dL 8.5-10.1 [facility] Serum or plasma creatinine m easurement (mass/volume)Ordered By: Thao Gustafson on 07-13-2023 Creatinine [Mass/Vol] 1.20 mg/dL 0.55-1.02 [facility] Comment on above: The validity of the calculated GFR & GFRAA in patients over 70 years has not been determined. Clinical correlation is essential. Serum or plasma urea nitroge n measurement (mass/volume)Ordered By: Thao Gustafson on 07-13-2023 Urea nitrogen [Mass/Vol] 18 mg/dL 7-18 [facility] Squamous epithelial cells de tection in urine sediment by light microscopyOrdered By: Thao Gustafson on 07-13-2023 Epithelial cells.squamous LM Ql (Urine sed) 0-5 SEEN /hpf 5-10 [facility] Thin prep Papanicolaou smear with manual screeningOrdered By: Thao Gustafson on 07-13-2023 Thin prep Papanicolaou smear with manual screening 3.6 g/dL 3.2-5.0 [facility] Thin prep Papanicolaou smear with manual screening 12 U/L 15-37 [facility] Thin prep Papanicolaou smear with manual screening 8 5-15 [facility] Urine blood detectionOrdered By: Thao Gustafson on 07-13-2023 RBC Ql (U) 10 /ul Negative [facility] Urine clarityOrdered By: Addis Gustafson on 07-13-2023 Clarity (U) Sl. Cloudy Clear [facility] Urine color determinationOrd ered By: Thao Gustafson on 07-13-2023 Color (U) Yellow Yellow [facility] Urine glucose detectionOrder ed By: Thao Gustafson on 07-13-2023 Glucose Ql (U) Normal mg/dl Normal [facility] Urine leukocyte esterase det ection by dipstickOrdered By: Thao Gustafson on 07-13-2023 Leukocyte esterase Test strip Ql (U) 25 /ul Negative [facility] Urine pHOrdered By: Thao Roberto gur on 07-13-2023 pH (U) 7.0 [pH] 5.0 - 8.0 [facility] Urine sediment bacteria coun t by microscopy (number/high power field)Ordered By: Thao Gustafson on 07-13-2023 Bacteria LM.HPF (Urine sed) [#/Area] 1 /[HPF] None Seen [facility] Urine specific gravity measu rementOrdered By: Thao Gustafson on 07-13-2023 Specific gravity (U) [Rel density] 1.010 1.002-1.030 [facility] Urine urobilinogen measureme ntOrdered By: Thao Gustafson on 07-13-2023 Urobilinogen Ql (U) Normal mg/dl Normal [facility] Basophil percentageOrdered B y: Michael Corcoran on 04-28-2023 Cholesterol [Mass/Vol] 238 mg/dL <200 [facility] Comment on above: <200 mg/dL Desirable 200-240 mg/dL Borderline >240 mg/dL High Risk Triglyceride [Mass/Vol] 232 mg/dL <199 [facility] Comment on above: The drugs N-Acetylcy steine and Metamizole may falsely depress this assay.Serum Triglycerides Reference Interval Normal <150 mg/dL Borderline high 150 - 199 mg/dL High 200 - 499 mg/dL Very High > or = 500 mg/dL No Panel InformationOrdered By: Michael Corcoran on 04-28-2023 Vitamin D 25-Hydroxy 22.2 ng/mL [facility] Comment on above: Vitamin D 25(OH) Sta tus Range Deficiency <20 ng/mL (50nmol/L) Insufficiency 20 - 30 ng/mL (50 - 75 nmol/L) Sufficiency 30 - 100 ng/mL (75 - 250 nmol/L) Toxicity >100 ng/mL (>250 nmol/L) Serum or plasma cholesterol in HDL measurement (mass/volume)Ordered By: Michael Corcoran on 04-28-2023 Cholesterol in HDL [Mass/Vol] 49 mg/dL >40 [facility] Comment on above: The drugs N-Acetylcy steine and Metamizole may falsely depress this assay. Reference Range HDL <40 mg/dL Low HDL Cholesterol HDL >or= 60 mg/dL High HDL Cholesterol Serum or plasma cholesterol in VLDL measurement (mass/volume)Ordered By: Michael Corcoran on 04-28-2023 Cholesterol in VLDL [Mass/Vol] 46 mg/dL 5-40 [facility] Serum or plasma low density lipoprotein (LDL) cholesterol measurement (mass/volume)Ordered By: Michael Corcoran on 04-28-2023 Cholesterol in LDL [Mass/Vol] 143 mg/dL 0-130 [facility] Absolute lymphocyte countOrd ered By: Miriam Meraz on 03-29-2023 Lymphocytes Auto (Unsp spec) [#/Vol] 1.64 10*3/uL 0.83-4.51 [facility] Basophil percentageOrdered B y: Miriam Meraz on 03-29-2023 Basophils/100 WBC (Bld) 0.5 % 0-1 [facility] Bilirubin [Mass/Vol] 0.50 mg/dL 0.20-1.00 [facility] Comment on above: For patients on eltr ombopag therapy, use of Dimension [place] TBIL is not recommended. Chloride [Moles/Vol] 110 mmol/L 98-107 [facility] Eosinophils/100 WBC (Bld) 3.1 % 0-5 [facility] Glucose [Mass/Vol] 111 mg/dL 74-106 [facility] Comment on above: Fasting Glucose resu lt from 100 to 125 mg/dL suggests IMPAIRED HOMEOSTASIS per A.D.A. criteria. Neutrophils (Bld) [#/Vol] 3.7 10*3/uL 2.0-7.7 [facility] Neutrophils/100 WBC (Bld) 60.9 % 47-70 [facility] Potassium [Moles/Vol] 4.0 mmol/L 3.5-5.1 [facility] Protein [Mass/Vol] 6.9 g/dL 6.4-8.2 [facility] Sodium [Moles/Vol] 141 mmol/L 136-145 [facility] WBC (Bld) [#/Vol] 6.1 10*3/uL 4.4-11.0 [facility] Blood erythrocytes count (nu mber/volume)Ordered By: Miriam Meraz on 03-29-2023 RBC (Bld) [#/Vol] 4.61 10*6/uL 4.2-5.[address] [facility] Blood hemoglobin measurement (mass/volume)Ordered By: Miriam Meraz on 03-29-2023 Hemoglobin (Bld) [Mass/Vol] 13.1 g/dL 12.0-15.0 [facility] Blood lymphocytes/100 leukoc ytesOrdered By: Miriam Meraz on 03-29-2023 Lymphocytes/100 WBC (Bld) 27.1 % 19-41 [facility] Blood monocytes/100 leukocyt esOrdered By: Miriam Meraz on 03-29-2023 Monocytes/100 WBC (Bld) 8.1 % 0-10 [facility] Blood platelet mean volumeOr dered By: Miriam Meraz on 03-29-2023 Platelet mean volume (Bld) [Entitic vol] 9.5 fL 6.2-12.0 [facility] Determination of erythrocyte mean corpuscular volume (MCV)Ordered By: Miriam Meraz on 03-29-2023 MCV (RBC) [Entitic vol] 87.6 fL 81-99 [facility] Hematocrit Auto (Bld) [Volum e fraction][facility]: [facility] Hematocrit (Bld) [Volume fraction] 40.4 % 37-47 [facility] Laboratory - Chemistry and C hemistry - challengeOrdered By: [facility] on 03-29-2023 ALP [Catalytic activity/Vol] 93 U/L 45-117 [facility] ALT [Catalytic activity/Vol] 16 U/L 13-56 [facility] CO2 [Moles/Vol] 28.0 mmol/L 21.0-32.0 [facility] Globulin (S) [Mass/Vol] 3.5 g/dL 2.2-4.2 [facility] Urea nitrogen/Creatinine [Mass ratio] 20.2 mg/mg 10-20 [facility] Laboratory - Hematology and Cell countsOrdered By: [facility] Erythrocyte distribution width (RBC) [Entitic vol] 44.7 fL 35.1-43.9 [facility] Erythrocyte distribution width (RBC) [Ratio] 14.0 % 11.6-14.6 [facility] Immature granulocytes/100 WBC (Bld) 0.300 % 0.0-0.9 [facility] Comment on above: IG% - Immature Granu locytes (promyelocytes, myelocytes and metamyelocytes) > 1% indicates that a LEFT SHIFT is Present. MCH (RBC) [Entitic mass] 28.4 pg 27.0-32.0 [facility] Nucleated RBC/100 WBC (Bld) [Ratio] 0 % 0-5 [facility] MCHC Auto (RBC) [Mass/Vol]Or dered By: Miriam Meraz on 03-29-2023 MCHC (RBC) [Mass/Vol] 32.4 g/dL 32-36 [facility] No Panel InformationOrdered By: Miriam Meraz on 03-29-2023 Estimated Creatinine Clearance Calc 31.68 ml/min [facility] Estimated GFR (MDRD) Amer 60 mL/min >60 [facility] Comment on above: GFR Calc Estimated GFR (MDRD) Non-Af Amer 49 mL/min >60 [facility] Comment on above: Non- GFR Calc Platelets bldOrdered By: Beba Meraz on 03-29-2023 Platelets (Bld) [#/Vol] 180 10*3/uL 150-450 [facility] Serum or plasma albumin jasbir urement (mass/volume)Ordered By: Miriam Meraz on 03-29-2023 Albumin [Mass/Vol] 3.4 g/dL 3.2-5.0 [facility] Serum or plasma albumin/glob ulin mass ratioOrdered By: Miriam Meraz on 03-29-2023 Albumin/Globulin [Mass ratio] 1.0 {ratio} 0.9-2.4 [facility] Serum or plasma calcium jasbir urement (mass/volume)Ordered By: Miriam Meraz on 03-29-2023 Calcium [Mass/Vol] 9.0 mg/dL 8.5-10.1 [facility] Serum or plasma creatinine m easurement (mass/volume)Ordered By: Miriam Meraz on 03-29-2023 Creatinine [Mass/Vol] 1.14 mg/dL 0.55-1.02 [facility] Comment on above: The validity of the calculated GFR & GFRAA in patients over 70 years has not been determined. Clinical correlation is essential. Serum or plasma urea nitroge n measurement (mass/volume)Ordered By: Miriam Meraz on 03-29-2023 Urea nitrogen [Mass/Vol] 23 mg/dL 7-18 [facility] Thin prep Papanicolaou smear with manual screeningOrdered By: Miriam Meraz on 03-29-2023 Thin prep Papanicolaou smear with manual screening 12 U/L 15-37 [facility] Thin prep Papanicolaou smear with manual screening 3 5-15 [facility] Absolute lymphocyte countOrd ered By: Veronica Schrader on 12-09-2022 Lymphocytes Auto (Unsp spec) [#/Vol] 1.42 10*3/uL 0.83-4.51 [facility] Basophil percentageOrdered B y: Veronica Schrader on 12-09-2022 Basophil percentage 3.3 mg/dL 2.5-4.[address] [facility] Basophils/100 WBC (Bld) 0.5 % 0-1 [facility] Bilirubin [Mass/Vol] 0.50 mg/dL 0.20-1.00 [facility] Comment on above: For patients on eltr ombopag therapy, use of Dimension [place] TBIL is not recommended. Chloride [Moles/Vol] 106 mmol/L 98-107 [facility] Eosinophils/100 WBC (Bld) 3.9 % 0-5 [facility] Glucose [Mass/Vol] 160 mg/dL 74-106 [facility] Comment on above: Fasting Glucose resu lt greater than or equal to 126 mg/dL suggests DIABETES MELLITUS per A.D.A. criteria. Neutrophils (Bld) [#/Vol] 4.1 10*3/uL 2.0-7.7 [facility] Neutrophils/100 WBC (Bld) 65.1 % 47-70 [facility] Potassium [Moles/Vol] 4.3 mmol/L 3.5-5.1 [facility] Protein [Mass/Vol] 6.9 g/dL 6.4-8.2 [facility] Sodium [Moles/Vol] 139 mmol/L 136-145 [facility] WBC (Bld) [#/Vol] 6.3 10*3/uL 4.4-11.0 [facility] Blood erythrocytes count (nu mber/volume)Ordered By: Veronica Schrader on 12-09-2022 RBC (Bld) [#/Vol] 4.75 10*6/uL 4.2-5.[address] [facility] Blood hemoglobin measurement (mass/volume)Ordered By: Veronica Schrader on 12-09-2022 Hemoglobin (Bld) [Mass/Vol] 13.7 g/dL 12.0-15.0 [facility] Blood lymphocytes/100 leukoc ytesOrdered By: Veronica Schrader on 12-09-2022 Lymphocytes/100 WBC (Bld) 22.4 % 19-41 [facility] Blood monocytes/100 leukocyt esOrdered By: [facility] on 12-09-2022 Monocytes/100 WBC (Bld) 7.9 % 0-10 [facility] Blood platelet mean volumeOr dered By: [facility] Raciel on 12-09-2022 Platelet mean volume (Bld) [Entitic vol] 9.9 fL 6.2-12.0 [facility] Determination of erythrocyte mean corpuscular volume (MCV)Ordered By: Veronica Schrader on 12-09-2022 MCV (RBC) [Entitic vol] 88.4 fL 81-99 [facility] Hematocrit Auto (Bld) [Volum e fraction]Ordered By: [facility] Raciel on 12-09-2022 Hematocrit (Bld) [Volume fraction] 42.0 % 37-47 [facility] Laboratory - Chemistry and C hemistry - challengeOrdered By: [facility] Raciel on 12-09-2022 ALP [Catalytic activity/Vol] 99 U/L 45-117 [facility] ALT [Catalytic activity/Vol] 16 U/L 13-56 [facility] CO2 [Moles/Vol] 28.0 mmol/L 21.0-32.0 [facility] Globulin (S) [Mass/Vol] 3.5 g/dL 2.2-4.2 [facility] Magnesium [Mass/Vol] 1.9 mg/dL 1.6-2.6 [facility] Urea nitrogen/Creatinine [Mass ratio] 16.2 mg/mg 10-20 [facility] Laboratory - Hematology and Cell countsOrdered By: [facility] Raciel on 12-09-2022 Erythrocyte distribution width (RBC) [Entitic vol] 42.5 fL 35.1-43.9 [facility] Erythrocyte distribution width (RBC) [Ratio] 13.1 % 11.6-14.6 [facility] Immature granulocytes/100 WBC (Bld) 0.200 % 0.0-0.9 [facility] Comment on above: IG% - Immature Granu locytes (promyelocytes, myelocytes and metamyelocytes) > 1% indicates that a LEFT SHIFT is Present. MCH (RBC) [Entitic mass] 28.8 pg 27.0-32.0 [facility] Nucleated RBC/100 WBC (Bld) [Ratio] 0 % 0-5 [facility] MCHC Auto (RBC) [Mass/Vol]Or dered By: Veronica Schrader on 12-09-2022 MCHC (RBC) [Mass/Vol] 32.6 g/dL 32-36 [facility] No Panel InformationOrdered By: Veronica Schrader on 12-09-2022 Estimated Creatinine Clearance Calc 26.56 ml/min [facility] Estimated GFR (MDRD) Amer 49 mL/min >60 [facility] Comment on above: GFR Calc Estimated GFR (MDRD) Non-Af Amer 40 mL/min >60 [facility] Comment on above: Non- GFR Calc Platelets bldOrdered By: Felipe Schrader on 12-09-2022 Platelets (Bld) [#/Vol] 171 10*3/uL 150-450 [facility] Serum or plasma albumin jasbir urement (mass/volume)Ordered By: Veronica Schrader on 12-09-2022 Albumin [Mass/Vol] 3.4 g/dL 3.2-5.0 [facility] Serum or plasma albumin/glob ulin mass ratioOrdered By: Veronica Schrader on 12-09-2022 Albumin/Globulin [Mass ratio] 1.0 {ratio} 0.9-2.4 [facility] Serum or plasma calcium jasbir urement (mass/volume)Ordered By: Veronica Schrader on 12-09-2022 Calcium [Mass/Vol] 8.7 mg/dL 8.5-10.1 [facility] Serum or plasma creatinine m easurement (mass/volume)Ordered By: Veronica Schrader on 12-09-2022 Creatinine [Mass/Vol] 1.36 mg/dL 0.55-1.02 [facility] Comment on above: The validity of the calculated GFR & GFRAA in patients over 70 years has not been determined. Clinical correlation is essential. Serum or plasma urea nitroge n measurement (mass/volume)Ordered By: Veronica Schrader on 12-09-2022 Urea nitrogen [Mass/Vol] 22 mg/dL 7-18 [facility] Thin prep Papanicolaou smear with manual screeningOrdered By: Veronica Schrader on 12-09-2022 Thin prep Papanicolaou smear with manual screening 15 U/L 15-37 [facility] Thin prep Papanicolaou smear with manual screening 5 5-15 [facility] Trichomonas screening testOr dered By: Veronica Raciel on 12-09-2022 Phosphorus Level 3.3 mg/dL 2.5-4.9 [facility] Basophil percentageOrdered B y: Haresh Saenz on 11-18-2022 LDH [Catalytic activity/Vol] 147 U/L 84-246 [facility] Absolute lymphocyte countOrd ered By: Haresh [facility] Lymphocytes Auto (Unsp spec) [#/Vol] 1.34 10*3/uL 0.83-4.51 [facility] Basophil percentageOrdered B y: Haresh Saenz on 10-28-2022 Basophils/100 WBC (Bld) 0.3 % 0-1 [facility] Bilirubin [Mass/Vol] 0.60 mg/dL 0.20-1.00 [facility] Comment on above: For patients on eltr ombopag therapy, use of Dimension [place] TBIL is not recommended. Chloride [Moles/Vol] 106 mmol/L 98-107 [facility] Eosinophils/100 WBC (Bld) 3.4 % 0-5 [facility] Glucose [Mass/Vol] 118 mg/dL 74-106 [facility] Comment on above: Fasting Glucose resu lt from 100 to 125 mg/dL suggests IMPAIRED HOMEOSTASIS per A.D.A. criteria. LDH [Catalytic activity/Vol] 147 U/L 84-246 [facility] Neutrophils (Bld) [#/Vol] 4.6 10*3/uL 2.0-7.7 [facility] Neutrophils/100 WBC (Bld) 68.9 % 47-70 [facility] Potassium [Moles/Vol] 3.9 mmol/L 3.5-5.1 [facility] Protein [Mass/Vol] 6.7 g/dL 6.4-8.2 [facility] Sodium [Moles/Vol] 138 mmol/L 136-145 [facility] WBC (Bld) [#/Vol] 6.7 10*3/uL 4.4-11.0 [facility] Blood erythrocytes count (nu mber/volume)Ordered By: Haresh Saenz on 10-28-2022 RBC (Bld) [#/Vol] 4.48 10*6/uL 4.2-5.[address] [facility] Blood hemoglobin measurement (mass/volume)Ordered By: Haresh Saenz on 10-28-2022 Hemoglobin (Bld) [Mass/Vol] 12.8 g/dL 12.0-15.0 [facility] Blood lymphocytes/100 leukoc ytesOrdered By: Haresh Saenz on 10-28-2022 Lymphocytes/100 WBC (Bld) 20.1 % 19-41 [facility] Blood monocytes/100 leukocyt esOrdered By: Haresh Saenz on 10-28-2022 Monocytes/100 WBC (Bld) 6.9 % 0-10 [facility] Blood platelet mean volumeOr dered By: Haresh Saenz on 10-28-2022 Platelet mean volume (Bld) [Entitic vol] 10.3 fL 6.2-12.0 [facility] Determination of erythrocyte mean corpuscular volume (MCV)Ordered By: Haresh Saenz on 10-28-2022 MCV (RBC) [Entitic vol] 88.8 fL 81-99 [facility] Hematocrit Auto (Bld) [Volum e fraction]Ordered By: Haresh Saenz on 10-28-2022 Hematocrit (Bld) [Volume fraction] 39.8 % 37-47 [facility] Laboratory - Chemistry and C hemistry - challengeOrdered By: Haresh Saenz on 10-28-2022 ALP [Catalytic activity/Vol] 101 U/L 45-117 [facility] ALT [Catalytic activity/Vol] 15 U/L 13-56 [facility] CO2 [Moles/Vol] 27.0 mmol/L 21.0-32.0 [facility] Globulin (S) [Mass/Vol] 3.4 g/dL 2.2-4.2 [facility] Urea nitrogen/Creatinine [Mass ratio] 15.4 mg/mg 10-20 [facility] Laboratory - Hematology and Cell countsOrdered By: Haresh Saenz on 07-13-2023 Erythrocyte distribution width (RBC) [Entitic vol] 43.1 fL 35.1-43.9 [facility] Erythrocyte distribution width (RBC) [Ratio] 13.2 % 11.6-14.6 [facility] Immature granulocytes/100 WBC (Bld) 0.400 % 0.0-0.9 [facility] Comment on above: IG% - Immature Granu locytes (promyelocytes, myelocytes and metamyelocytes) > 1% indicates that a LEFT SHIFT is Present. MCH (RBC) [Entitic mass] 28.6 pg 27.0-32.0 [facility] Nucleated RBC/100 WBC (Bld) [Ratio] 0 % 0-5 [facility] MCHC Auto (RBC) [Mass/Vol]Or dered By: Haresh Saenz on 10-28-2022 MCHC (RBC) [Mass/Vol] 32.2 g/dL 32-36 [facility] No Panel InformationOrdered By: Haresh Saenz on 10-28-2022 Estimated Creatinine Clearance Calc 31.35 ml/min [facility] Estimated GFR (MDRD) Amer 58 mL/min >60 [facility] Comment on above: GFR Calc Estimated GFR (MDRD) Non-Af Amer 48 mL/min >60 [facility] Comment on above: Non- GFR Calc Platelets bldOrdered By: Edd Saenz on 10-28-2022 Platelets (Bld) [#/Vol] 177 10*3/uL 150-450 [facility] Serum or plasma albumin jasbir urement (mass/volume)Ordered By: Haresh Saenz on 10-28-2022 Albumin [Mass/Vol] 3.3 g/dL 3.2-5.0 [facility] Serum or plasma albumin/glob ulin mass ratioOrdered By: Haresh Saenz on 10-28-2022 Albumin/Globulin [Mass ratio] 1.0 {ratio} 0.9-2.4 [facility] Serum or plasma calcium jasbir urement (mass/volume)Ordered By: Haresh Saenz on 10-28-2022 Calcium [Mass/Vol] 8.7 mg/dL 8.5-10.1 [facility] Serum or plasma creatinine m easurement (mass/volume)Ordered By: Haresh Saenz on 10-28-2022 Creatinine [Mass/Vol] 1.17 mg/dL 0.55-1.02 [facility] Comment on above: The validity of the calculated GFR & GFRAA in patients over 70 years has not been determined. Clinical correlation is essential. Serum or plasma urea nitroge n measurement (mass/volume)Ordered By: Haresh Saenz on 10-28-2022 Urea nitrogen [Mass/Vol] 18 mg/dL 7-18 [facility] Thin prep Papanicolaou smear with manual screeningOrdered By: Haresh Saenz on 10-28-2022 Thin prep Papanicolaou smear with manual screening 11 U/L 15-37 [facility] Thin prep Papanicolaou smear with manual screening 5 5-15 [facility] Basophil percentageOrdered B y: Veronica Schrader on 08-05-2022 Basophil percentage 3.6 mg/dL 2.5-4.[address] [facility] Laboratory - Chemistry and C hemistry - challengeOrdered By: Veronica Schrader on 08-05-2022 Magnesium [Mass/Vol] 1.6 mg/dL 1.6-2.6 [facility] Hemoglobin (Reticulocytes) [ Entitic mass]Ordered By: Haresh Saenz on 07-15-2022 Reticulocyte Hemoglobin Equivalent 32.2 pg 30-35 [facility] Hemoglobin in reticulocytes (mass per reticulocyte)Ordered By: Haresh Saenz on 07-15-2022 Hemoglobin (Reticulocytes) [Entitic mass] 32.2 pg 30-35 [facility] INR in Blood by Coagulation assayOrdered By: Haresh Saenz on 07-15-2022 INR Coag (Bld) [Relative time] 1.3 {INR} [facility] Iron (Unsp spec) [Mass/Mass] Ordered By: Haresh Saenz on 07-15-2022 Iron [Mass/Vol] 42 ug/dL Low 50-170 [facility] Iron measurement (mass/mass) Ordered By: Haresh Saenz on 07-15-2022 Iron (Unsp spec) [Mass/Mass] 42 ug/dL Low 50-170 [facility] Iron saturation [Mass fracti on]Ordered By: Haresh Saenz on 07-15-2022 Iron Saturation 19.7 % 15.0-55.0 [facility] Laboratory - CoagulationOrde red By: Haresh Saenz on 07-15-2022 aPTT Coag (Bld) [Time] 30.8 s 24.1-36.2 [facility] PT Coag (PPP) [Time] 16.0 s High 11.7-14.9 [facility] No Panel InformationOrdered By: Haresh Saenz on 07-15-2022 D-Dimer Quantitative (PE/DVT) 0.40 FEU/ug/m 0.27-0.49 [facility] Comment on above: NORMAL D-Dimer level (<0.50) indicates no DVT or PE. Immature Reticulocyte Fraction 9.40 % 3.00-15.90 [facility] Reticulocyte Count 1.42 % 0.5-1.5 [facility] Total Iron Binding Capacity 213 ug/dL Low 250-450 [facility] Serum or plasma ferritin dianelys surement (mass/volume)Ordered By: Haresh Saenz on 07-15-2022 Ferritin [Mass/Vol] 292 ng/mL High 8-[address] [facility] Serum or plasma iron saturat ion measurement (mass fraction)Ordered By: Haresh Saenz on 07-15-2022 Iron saturation [Mass fraction] 19.7 % 15.0-55.0 [facility] Absolute lymphocyte countOrd ered By: Dr. Saenz on 06-03-2022 Lymphocytes Auto (Unsp spec) [#/Vol] 1.89 10*3/uL 0.83-4.51 [facility] Basophil percentageOrdered B y: Dr. Saenz on 06-03-2022 Basophils/100 WBC (Bld) 0.5 % 0-1 [facility] Bilirubin [Mass/Vol] 0.40 mg/dL 0.20-1.00 [facility] Comment on above: For patients on eltr ombopag therapy, use of Dimension [place] TBIL is not recommended. Chloride [Moles/Vol] 108 mmol/L 98-107 [facility] Eosinophils/100 WBC (Bld) 4.0 % 0-5 [facility] Glucose [Mass/Vol] 135 mg/dL 74-106 [facility] Comment on above: Fasting Glucose resu lt greater than or equal to 126 mg/dL suggests DIABETES MELLITUS per A.D.A. criteria. LDH [Catalytic activity/Vol] 146 U/L 84-246 [facility] Neutrophils (Bld) [#/Vol] 3.1 10*3/uL 2.0-7.7 [facility] Neutrophils/100 WBC (Bld) 53.9 % 47-70 [facility] Potassium [Moles/Vol] 3.2 mmol/L 3.5-5.1 [facility] Protein [Mass/Vol] 6.4 g/dL 6.4-8.2 [facility] Sodium [Moles/Vol] 143 mmol/L 136-145 [facility] WBC (Bld) [#/Vol] 5.8 10*3/uL 4.4-11.0 [facility] Blood erythrocytes count (nu mber/volume)Ordered By: Dr. Saenz on 06-03-2022 RBC (Bld) [#/Vol] 4.02 10*6/uL 4.2-5.[address] [facility] Blood hemoglobin measurement (mass/volume)Ordered By: Dr. Saenz on 06-03-2022 Hemoglobin (Bld) [Mass/Vol] 11.8 g/dL 12.0-15.0 [facility] Blood lymphocytes/100 leukoc ytesOrdered By: Dr. Saenz on 06-03-2022 Lymphocytes/100 WBC (Bld) 32.9 % 19-41 [facility] Blood monocytes/100 leukocyt esOrdered By: Dr. Saenz on 06-03-2022 Monocytes/100 WBC (Bld) 8.5 % 0-10 [facility] Blood platelet mean volumeOr dered By: Dr. Saenz on 06-03-2022 Platelet mean volume (Bld) [Entitic vol] 9.9 fL 6.2-12.0 [facility] Determination of erythrocyte mean corpuscular volume (MCV)Ordered By: Dr. Saenz on 06-03-2022 MCV (RBC) [Entitic vol] 91.3 fL 81-99 [facility] Hematocrit Auto (Bld) [Volum e fraction]Ordered By: Dr. Saenz on 06-03-2022 Hematocrit (Bld) [Volume fraction] 36.7 % 37-47 [facility] Laboratory - Chemistry and C hemistry - challengeOrdered By: Dr. Saenz on 06-03-2022 ALP [Catalytic activity/Vol] 72 U/L 45-117 [facility] ALT [Catalytic activity/Vol] 13 U/L 13-56 [facility] CO2 [Moles/Vol] 29.0 mmol/L 21.0-32.0 [facility] Globulin (S) [Mass/Vol] 3.2 g/dL 2.2-4.2 [facility] Urea nitrogen/Creatinine [Mass ratio] 20.4 mg/mg 10-20 [facility] Laboratory - Hematology and Cell countsOrdered By: Dr. Saenz on 06-03-2022 Erythrocyte distribution width (RBC) [Entitic vol] 44.2 fL 35.1-43.9 [facility] Erythrocyte distribution width (RBC) [Ratio] 13.2 % 11.6-14.6 [facility] Immature granulocytes/100 WBC (Bld) 0.200 % 0.0-0.9 [facility] Comment on above: IG% - Immature Granu locytes (promyelocytes, myelocytes and metamyelocytes) > 1% indicates that a LEFT SHIFT is Present. MCH (RBC) [Entitic mass] 29.4 pg 27.0-32.0 [facility] Nucleated RBC/100 WBC (Bld) [Ratio] 0 % 0-5 [facility] MCHC Auto (RBC) [Mass/Vol]Or dered By: Dr. Saenz on 06-03-2022 MCHC (RBC) [Mass/Vol] 32.2 g/dL 32-36 [facility] No Panel InformationOrdered By: Dr. Saenz on 06-03-2022 Estimated Creatinine Clearance Calc 35.58 ml/min [facility] Estimated GFR (MDRD) Amer 60 mL/min >60 [facility] Comment on above: GFR Calc Estimated GFR (MDRD) Non-Af Amer 50 mL/min >60 [facility] Comment on above: Non- GFR Calc Platelets bldOrdered By: Dr. Saenz on 06-03-2022 Platelets (Bld) [#/Vol] 173 10*3/uL 150-450 [facility] Serum or plasma albumin jasbir urement (mass/volume)Ordered By: Dr. Saenz on 06-03-2022 Albumin [Mass/Vol] 3.2 g/dL 3.2-5.0 [facility] Serum or plasma albumin/glob ulin mass ratioOrdered By: Dr. Saenz on 06-03-2022 Albumin/Globulin [Mass ratio] 1.0 {ratio} 0.9-2.4 [facility] Serum or plasma calcium jasbir urement (mass/volume)Ordered By: Dr. Saenz on 06-03-2022 Calcium [Mass/Vol] 8.4 mg/dL 8.5-10.1 [facility] Serum or plasma creatinine m easurement (mass/volume)Ordered By: Dr. Saenz on 06-03-2022 Creatinine [Mass/Vol] 1.13 mg/dL 0.55-1.02 [facility] Comment on above: The validity of the calculated GFR & GFRAA in patients over 70 years has not been determined. Clinical correlation is essential. Serum or plasma urea nitroge n measurement (mass/volume)Ordered By: Dr. Saenz on 06-03-2022 Urea nitrogen [Mass/Vol] 23 mg/dL 7-18 [facility] Thin prep Papanicolaou smear with manual screeningOrdered By: Dr. Saenz on 06-03-2022 Thin prep Papanicolaou smear with manual screening 10 U/L 15-37 [facility] Thin prep Papanicolaou smear with manual screening 6 5-15 [facility] Iron measurement (mass/mass) Ordered By: Dr. Saenz on 05-13-2022 Iron (Unsp spec) [Mass/Mass] 38 ug/dL 50-170 [facility] No Panel InformationOrdered By: Dr. Saenz on 05-13-2022 Total Iron Binding Capacity 218 ug/dL 250-450 [facility] Serum or plasma ferritin dianelys surement (mass/volume)Ordered By: Dr. Saenz on 05-13-2022 Ferritin [Mass/Vol] 100 ng/mL 8-[address] [facility] Serum or plasma iron saturat ion measurement (mass fraction)Ordered By: Dr. Saenz on 05-13-2022 Iron saturation [Mass fraction] 17.4 % 15.0-55.0 [facility] Absolute lymphocyte countOrd ered By: Dr. Saab on 04-24-2022 Lymphocytes Auto (Unsp spec) [#/Vol] 1.64 10*3/uL 0.83-4.51 [facility] Basophil percentageOrdered B y: Dr. Saab on 04-24-2022 Basophils/100 WBC (Bld) 0.3 % 0-1 [facility] Chloride [Moles/Vol] 108 mmol/L 98-107 [facility] Eosinophils/100 WBC (Bld) 1.5 % 0-5 [facility] Glucose [Mass/Vol] 114 mg/dL 74-106 [facility] Comment on above: Fasting Glucose resu lt from 100 to 125 mg/dL suggests IMPAIRED HOMEOSTASIS per A.D.A. criteria. Neutrophils (Bld) [#/Vol] 4.0 10*3/uL 2.0-7.7 [facility] Neutrophils/100 WBC (Bld) 61.6 % 47-70 [facility] Potassium [Moles/Vol] 3.7 mmol/L 3.5-5.1 [facility] Sodium [Moles/Vol] 141 mmol/L 136-145 [facility] WBC (Bld) [#/Vol] 6.5 10*3/uL 4.4-11.0 [facility] Blood erythrocytes count (nu mber/volume)Ordered By: Dr. Saab on 04-24-2022 RBC (Bld) [#/Vol] 3.07 10*6/uL 4.2-5.[address] [facility] Blood hemoglobin measurement (mass/volume)Ordered By: Dr. Saab on 04-24-2022 Hemoglobin (Bld) [Mass/Vol] 9.5 g/dL 12.0-15.0 [facility] Blood lymphocytes/100 leukoc ytesOrdered By: Dr. Saab on 04-24-2022 Lymphocytes/100 WBC (Bld) 25.4 % 19-41 [facility] Blood monocytes/100 leukocyt esOrdered By: Dr. Saab on 04-24-2022 Monocytes/100 WBC (Bld) 10.7 % 0-10 [facility] Blood platelet mean volumeOr dered By: Dr. Saab on 04-24-2022 Platelet mean volume (Bld) [Entitic vol] 10.5 fL 6.2-12.0 [facility] Determination of erythrocyte mean corpuscular volume (MCV)Ordered By: Dr. Saab on 04-24-2022 MCV (RBC) [Entitic vol] 98.0 fL 81-99 [facility] Hematocrit Auto (Bld) [Volum e fraction]Ordered By: Dr. Saab on 04-24-2022 Hematocrit (Bld) [Volume fraction] 30.1 % 37-47 [facility] Laboratory - Chemistry and C hemistry - challengeOrdered By: Dr. Saab on 04-24-2022 CO2 [Moles/Vol] 26.0 mmol/L 21.0-32.0 [facility] Urea nitrogen/Creatinine [Mass ratio] 21.7 mg/mg 10-20 [facility] Laboratory - Hematology and Cell countsOrdered By: Dr. Saab on 04-24-2022 Erythrocyte distribution width (RBC) [Entitic vol] 50.9 fL 35.1-43.9 [facility] Erythrocyte distribution width (RBC) [Ratio] 14.2 % 11.6-14.6 [facility] Immature granulocytes/100 WBC (Bld) 0.500 % 0.0-0.9 [facility] Comment on above: IG% - Immature Granu locytes (promyelocytes, myelocytes and metamyelocytes) > 1% indicates that a LEFT SHIFT is Present. MCH (RBC) [Entitic mass] 30.9 pg 27.0-32.0 [facility] Nucleated RBC/100 WBC (Bld) [Ratio] 0 % 0-5 [facility] MCHC Auto (RBC) [Mass/Vol]Or dered By: Dr. Saab on 04-24-2022 MCHC (RBC) [Mass/Vol] 31.6 g/dL 32-36 [facility] No Panel InformationOrdered By: Dr. Saab on 04-24-2022 Estimated Creatinine Clearance Calc 37.93 ml/min [facility] Estimated GFR (MDRD) Amer 65 mL/min >60 [facility] Comment on above: GFR Calc Estimated GFR (MDRD) Non-Af Amer 54 mL/min >60 [facility] Comment on above: Non- GFR Calc Platelets bldOrdered By: Dr. Saab on 04-24-2022 Platelets (Bld) [#/Vol] 121 10*3/uL 150-450 [facility] Serum or plasma calcium jasbir urement (mass/volume)Ordered By: Dr. Saab on 04-24-2022 Calcium [Mass/Vol] 8.1 mg/dL 8.5-10.1 [facility] Serum or plasma creatinine m easurement (mass/volume)Ordered By: Dr. Saab on 04-24-2022 Creatinine [Mass/Vol] 1.06 mg/dL 0.55-1.02 [facility] Comment on above: The validity of the calculated GFR & GFRAA in patients over 70 years has not been determined. Clinical correlation is essential. Serum or plasma urea nitroge n measurement (mass/volume)Ordered By: Dr. Saab on 04-24-2022 Urea nitrogen [Mass/Vol] 23 mg/dL 7-18 [facility] Thin prep Papanicolaou smear with manual screeningOrdered By: Dr. Saab on 04-24-2022 Thin prep Papanicolaou smear with manual screening 7 5-15 [facility] Absolute lymphocyte counton 04-01-2022 Lymphocytes Auto (Unsp spec) [#/Vol] 1.38 10*3/uL 0.83-4.51 [facility] Work Phone: Basophil percentageon 2021 Basophils/100 WBC (Bld) 0.3 % 0-1 [facility] Work Phone: Bilirubin [Mass/Vol] 0.40 mg/dL 0.20-1.00 [facility] Work Phone: Comment on above: For patients on eltr ombopag therapy, use of Dimension [place] TBIL is not recommended. Chloride [Moles/Vol] 107 mmol/L 98-107 [facility] Work Phone: Eosinophils/100 WBC (Bld) 0.1 % 0-5 [facility] Work Phone: Glucose [Mass/Vol] 119 mg/dL 74-106 [facility] Work Phone: Comment on above: Fasting Glucose resu lt from 100 to 125 mg/dL suggests IMPAIRED HOMEOSTASIS per A.D.A. criteria. Neutrophils (Bld) [#/Vol] 7.2 10*3/uL 2.0-7.7 [facility] Work Phone: Neutrophils/100 WBC (Bld) 76.4 % 47-70 [facility] Work Phone: Potassium [Moles/Vol] 3.1 mmol/L 3.5-5.1 [facility] Work Phone: Protein [Mass/Vol] 6.0 g/dL 6.4-8.2 [facility] Work Phone: Sodium [Moles/Vol] 140 mmol/L 136-145 [facility] Work Phone: [phone] WBC (Bld) [#/Vol] 9.4 10*3/uL 4.4-11.0 [facility] Work Phone: Blood erythrocytes count (nu mber/volume)on 04-01-2022 RBC (Bld) [#/Vol] 3.40 10*6/uL 4.2-5.[address] [facility] Work Phone: Blood hemoglobin measurement (mass/volume)on 04-01-2022 Hemoglobin (Bld) [Mass/Vol] 10.8 g/dL 12.0-15.0 [facility] Work Phone: Blood lymphocytes/100 leukoc yteson 04-01-2022 Lymphocytes/100 WBC (Bld) 14.6 % 19-41 [facility] Work Phone: Blood monocytes/100 leukocyt eson 04-01-2022 Monocytes/100 WBC (Bld) 8.1 % 0-10 [facility] Work Phone: Blood platelet mean volumeon 04-01-2022 Platelet mean volume (Bld) [Entitic vol] 9.8 fL 6.2-12.0 [facility] Work Phone: Determination of erythrocyte mean corpuscular volume (MCV)on 04-01-2022 MCV (RBC) [Entitic vol] 96.5 fL 81-99 [facility] Work Phone: [phone] Hematocrit Auto (Bld) [Volum e fraction]on 04-01-2022 Hematocrit (Bld) [Volume fraction] 32.8 % 37-47 [facility] Work Phone: [phone] Iron measurement (mass/mass) on 04-01-2022 Iron (Unsp spec) [Mass/Mass] 45 ug/dL 50-170 [facility] Work Phone: [phone] Laboratory - Chemistry and C hemistry - challengeon 04-01-2022 ALP [Catalytic activity/Vol] 90 U/L 45-117 [facility] Work Phone: [phone] ALT [Catalytic activity/Vol] 16 U/L 13-56 [facility] Work Phone: [phone] CO2 [Moles/Vol] 28.0 mmol/L 21.0-32.0 [facility] Work Phone: [phone] Globulin (S) [Mass/Vol] 2.9 g/dL 2.2-4.2 [facility] Work Phone: [phone] Urea nitrogen/Creatinine [Mass ratio] 16.6 mg/mg 10-20 [facility] Work Phone: [phone] Laboratory - Hematology and Cell countson 04-01-2022 Erythrocyte distribution width (RBC) [Entitic vol] 56.6 fL 35.1-43.9 [facility] Work Phone: [phone] Erythrocyte distribution width (RBC) [Ratio] 16.4 % 11.6-14.6 [facility] Work Phone: [phone] Immature granulocytes/100 WBC (Bld) 0.500 % 0.0-0.9 [facility] Work Phone: [phone] Comment on above: IG% - Immature Granu locytes (promyelocytes, myelocytes and metamyelocytes) > 1% indicates that a LEFT SHIFT is Present. MCH (RBC) [Entitic mass] 31.8 pg 27.0-32.0 [facility] Work Phone: Nucleated RBC/100 WBC (Bld) [Ratio] 0 % 0-5 [facility] Work Phone: MCHC Auto (RBC) [Mass/Vol]on 04-01-2022 MCHC (RBC) [Mass/Vol] 32.9 g/dL 32-36 [facility] Work Phone: [phone] Panel Informationon 04-01 Estimated Creatinine Clearance Calc 44.68 ml/min [facility] Work Phone: [phone] Estimated GFR (MDRD) Amer 78 mL/min >60 [facility] Work Phone: [phone] Comment on above: GFR Calc Estimated GFR (MDRD) Non-Af Amer 64 mL/min >60 [facility] Work Phone: [phone] Comment on above: Non- GFR Calc Total Iron Binding Capacity 199 ug/dL 250-450 [facility] Work Phone: [phone] Platelets bldon 04-01-2022 Platelets (Bld) [#/Vol] 122 10*3/uL 150-450 [facility] Work Phone: Serum or plasma albumin jasbir urement (mass/volume)on 04-01-2022 Albumin [Mass/Vol] 3.1 g/dL 3.2-5.0 [facility] Work Phone: [phone] Serum or plasma albumin/glob ulin mass ratioon 04-01-2022 Albumin/Globulin [Mass ratio] 1.1 {ratio} 0.9-2.4 [facility] Work Phone: [phone] Serum or plasma calcium jasbir urement (mass/volume)on 04-01-2022 Calcium [Mass/Vol] 8.4 mg/dL 8.5-10.1 [facility] Work Phone: [phone] Serum or plasma creatinine m easurement (mass/volume)on 04-01-2022 Creatinine [Mass/Vol] 0.90 mg/dL 0.55-1.02 [facility] Work Phone: [phone] Comment on above: The validity of the calculated GFR & GFRAA in patients over 70 years has not been determined. Clinical correlation is essential. Serum or plasma iron saturat ion measurement (mass fraction)on 04-01-2022 Iron saturation [Mass fraction] 22.6 % 15.0-55.0 [facility] Work Phone: Serum or plasma urea nitroge n measurement (mass/volume)on 04-01-2022 Urea nitrogen [Mass/Vol] 15 mg/dL 7-18 [facility] Work Phone: Thin prep Papanicolaou smear with manual screeningon 04-01-2022 Thin prep Papanicolaou smear with manual screening 13 U/L 15-37 [facility] Work Phone: Thin prep Papanicolaou smear with manual screening 5 5-15 [facility] Work Phone: Thin prep Papanicolaou smear with manual screening 158 U/L 84-246 [facility] Work Phone: Absolute lymphocyte countOrd ered By: Arun Kim on 03-26-2022 Lymphocytes Auto (Unsp spec) [#/Vol] 1.33 10*3/uL 0.83-4.51 [facility] Basophil percentageOrdered B y: Arun Kim on 03-26-2022 Basophils/100 WBC (Bld) 0.4 % 0-1 [facility] Bilirubin [Mass/Vol] 0.30 mg/dL 0.20-1.00 [facility] Comment on above: For patients on eltr ombopag therapy, use of Dimension [place] TBIL is not recommended. Chloride [Moles/Vol] 104 mmol/L 98-107 [facility] Eosinophils/100 WBC (Bld) 0.2 % 0-5 [facility] Glucose [Mass/Vol] 135 mg/dL 74-106 [facility] Comment on above: Fasting Glucose resu lt greater than or equal to 126 mg/dL suggests DIABETES MELLITUS per A.D.A. criteria. Neutrophils (Bld) [#/Vol] 10.1 10*3/uL 2.0-7.7 [facility] Neutrophils/100 WBC (Bld) 79.6 % 47-70 [facility] Potassium [Moles/Vol] 3.6 mmol/L 3.5-5.1 [facility] Protein [Mass/Vol] 5.8 g/dL 6.4-8.2 [facility] Sodium [Moles/Vol] 138 mmol/L 136-145 [facility] WBC (Bld) [#/Vol] 12.6 10*3/uL 4.4-11.[address] [facility] Blood erythrocytes count (nu mber/volume)Ordered By: Arun Kim on 03-26-2022 RBC (Bld) [#/Vol] 3.19 10*6/uL 4.2-5.[address] [facility] Blood hemoglobin measurement (mass/volume)Ordered By: Arun Kim on 03-26-2022 Hemoglobin (Bld) [Mass/Vol] 9.9 g/dL 12.0-15.0 [facility] Blood lymphocytes/100 leukoc ytesOrdered By: Arun Kim on 03-26-2022 Lymphocytes/100 WBC (Bld) 10.5 % 19-41 [facility] Blood manual differential co mment interpretation (narrative result)Ordered By: Arun Kim on 03-26-2022 Manual differential comment Ammon (Bld) [Interp] SCANNED [facility] Blood monocytes/100 leukocyt esOrdered By: Arun Kim on 03-26-2022 Monocytes/100 WBC (Bld) 8.4 % 0-10 [facility] Blood platelet mean volumeOr dered By: Arun Kim on 03-26-2022 Platelet mean volume (Bld) [Entitic vol] 10.5 fL 6.2-12.0 [facility] Determination of erythrocyte mean corpuscular volume (MCV)Ordered By: Arun Kim on 03-26-2022 MCV (RBC) [Entitic vol] 96.9 fL 81-99 [facility] Direct bilirubinOrdered By: Arun Kim on 03-26-2022 Bilirubin.direct [Mass/Vol] 0.10 mg/dL 0.00-0.30 [facility] Hematocrit Auto (Bld) [Volum e fraction]Ordered By: Arun Kim on 03-26-2022 Hematocrit (Bld) [Volume fraction] 30.9 % 37-47 [facility] Influenza virus A and B and SARS-CoV-2 (COVID-19) Ag panel - Upper respiratory specimOrdered By: Arun Kim on 03-26-2022 SARS-CoV-2 (COVID-19) RNA KIRSTY+probe Ql (Resp) [facility] Laboratory - Chemistry and C hemistry - challengeOrdered By: Arun Kim on 03-26-2022 ALP [Catalytic activity/Vol] 88 U/L 45-117 [facility] ALT [Catalytic activity/Vol] 15 U/L 13-56 [facility] CO2 [Moles/Vol] 26.0 mmol/L 21.0-32.0 [facility] Globulin (S) [Mass/Vol] 2.7 g/dL 2.2-4.2 [facility] Lipase [Catalytic activity/Vol] 64 U/L 73-393 [facility] Urea nitrogen/Creatinine [Mass ratio] 22.2 mg/mg 10-20 [facility] Laboratory - Hematology and Cell countsOrdered By: Arun Kim on 03-26-2022 Erythrocyte distribution width (RBC) [Entitic vol] 54.7 fL 35.1-43.9 [facility] Erythrocyte distribution width (RBC) [Ratio] 15.3 % 11.6-14.6 [facility] Immature granulocytes/100 WBC (Bld) 0.900 % 0.0-0.9 [facility] Comment on above: IG% - Immature Granu locytes (promyelocytes, myelocytes and metamyelocytes) > 1% indicates that a LEFT SHIFT is Present. MCH (RBC) [Entitic mass] 31.0 pg 27.0-32.0 [facility] Nucleated RBC/100 WBC (Bld) [Ratio] 0 % 0-5 [facility] MCHC Auto (RBC) [Mass/Vol]Or dered By: Arun iKm on 03-26-2022 MCHC (RBC) [Mass/Vol] 32.0 g/dL 32-36 [facility] No Panel InformationOrdered By: Arun Kim on 03-26-2022 Estimated Creatinine Clearance Calc 40.62 ml/min [facility] Estimated GFR (MDRD) Amer 70 mL/min >60 [facility] Comment on above: GFR Calc Estimated GFR (MDRD) Non-Af Amer 58 mL/min >60 [facility] Comment on above: Non- GFR Calc Platelets bldOrdered By: Alex Kim on 03-26-2022 Platelets (Bld) [#/Vol] 133 10*3/uL 150-450 [facility] Serum or plasma albumin jasbir urement (mass/volume)Ordered By: Arun Kim on 03-26-2022 Albumin [Mass/Vol] 3.1 g/dL 3.2-5.0 [facility] Serum or plasma calcium jasbir urement (mass/volume)Ordered By: Arun Kim on 03-26-2022 Calcium [Mass/Vol] 8.4 mg/dL 8.5-10.1 [facility] Serum or plasma creatinine m easurement (mass/volume)Ordered By: Arun Kim on 03-26-2022 Creatinine [Mass/Vol] 0.99 mg/dL 0.55-1.02 [facility] Comment on above: The validity of the calculated GFR & GFRAA in patients over 70 years has not been determined. Clinical correlation is essential. Serum or plasma urea nitroge n measurement (mass/volume)Ordered By: Arun Kim on 03-26-2022 Urea nitrogen [Mass/Vol] 22 mg/dL 7-18 [facility] Thin prep Papanicolaou smear with manual screeningOrdered By: Arun Kim on 03-26-2022 Thin prep Papanicolaou smear with manual screening 12 U/L 15-37 [facility] Thin prep Papanicolaou smear with manual screening 8 5-15 [facility] Absolute lymphocyte counton 03-17-2022 Lymphocytes Auto (Unsp spec) [#/Vol] 1.37 10*3/uL 0.83-4.51 [facility] Work Phone: Basophil percentageOrdered B y: Dr. Saenz on 03-17-2022 Basophil percentage 3.1 mg/dL 2.5-4.[address] [facility] Basophil percentageon 2021 Basophils/100 WBC (Bld) 0.5 % 0-1 [facility] Work Phone: Bilirubin [Mass/Vol] 0.50 mg/dL 0.20-1.00 [facility] Work Phone: Comment on above: For patients on eltr ombopag therapy, use of Dimension [place] TBIL is not recommended. Chloride [Moles/Vol] 107 mmol/L 98-107 [facility] Work Phone: Eosinophils/100 WBC (Bld) 0.2 % 0-5 [facility] Work Phone: Glucose [Mass/Vol] 151 mg/dL 74-106 [facility] Work Phone: Comment on above: Fasting Glucose resu lt greater than or equal to 126 mg/dL suggests DIABETES MELLITUS per A.D.A. criteria. Neutrophils (Bld) [#/Vol] 3.5 10*3/uL 2.0-7.7 [facility] Work Phone: Neutrophils/100 WBC (Bld) 61.5 % 47-70 [facility] Work Phone: Potassium [Moles/Vol] 3.3 mmol/L 3.5-5.1 [facility] Work Phone: Protein [Mass/Vol] 6.2 g/dL 6.4-8.2 [facility] Work Phone: Sodium [Moles/Vol] 141 mmol/L 136-145 [facility] Work Phone: WBC (Bld) [#/Vol] 5.7 10*3/uL 4.4-11.0 [facility] Work Phone: Blood erythrocytes count (nu mber/volume)on 03-17-2022 RBC (Bld) [#/Vol] 3.61 10*6/uL 4.2-5.[address] [facility] Work Phone: Blood hemoglobin measurement (mass/volume)on 03-17-2022 Hemoglobin (Bld) [Mass/Vol] 11.0 g/dL 12.0-15.0 [facility] Work Phone: Blood lymphocytes/100 leukoc yteson 03-17-2022 Lymphocytes/100 WBC (Bld) 24.2 % 19-41 [facility] Work Phone: Blood monocytes/100 leukocyt eson 03-17-2022 Monocytes/100 WBC (Bld) 13.1 % 0-10 [facility] Work Phone: Blood platelet mean volumeon 03-17-2022 Platelet mean volume (Bld) [Entitic vol] 10.0 fL 6.2-12.0 [facility] Work Phone: Determination of erythrocyte mean corpuscular volume (MCV)on 03-17-2022 MCV (RBC) [Entitic vol] 95.6 fL 81-99 [facility] Work Phone: Hematocrit Auto (Bld) [Volum e fraction]on 03-17-2022 Hematocrit (Bld) [Volume fraction] 34.5 % 37-47 [facility] Work Phone: Laboratory - Chemistry and C hemistry - challengeon 03-17-2022 ALP [Catalytic activity/Vol] 77 U/L 45-117 [facility] Work Phone: ALT [Catalytic activity/Vol] 15 U/L 13-56 [facility] Work Phone: CO2 [Moles/Vol] 27.0 mmol/L 21.0-32.0 [facility] Work Phone: Globulin (S) [Mass/Vol] 3.1 g/dL 2.2-4.2 [facility] Work Phone: Urea nitrogen/Creatinine [Mass ratio] 16.8 mg/mg 10-20 [facility] Work Phone: Laboratory - Chemistry and C hemistry - challengeOrdered By: Dr. Saenz on 03-17-2022 Magnesium [Mass/Vol] 1.4 mg/dL 1.6-2.6 [facility] Laboratory - Hematology and Cell countson 03-17-2022 Erythrocyte distribution width (RBC) [Entitic vol] 59.3 fL 35.1-43.9 [facility] Work Phone: [phone] Erythrocyte distribution width (RBC) [Ratio] 17.0 % 11.6-14.6 [facility] Work Phone: [phone] Immature granulocytes/100 WBC (Bld) 0.500 % 0.0-0.9 [facility] Work Phone: [phone] Comment on above: IG% - Immature Granu locytes (promyelocytes, myelocytes and metamyelocytes) > 1% indicates that a LEFT SHIFT is Present. MCH (RBC) [Entitic mass] 30.5 pg 27.0-32.0 [facility] Work Phone: [phone] Nucleated RBC/100 WBC (Bld) [Ratio] 0 % 0-5 [facility] Work Phone: [phone] MCHC Auto (RBC) [Mass/Vol]on 03-17-2022 MCHC (RBC) [Mass/Vol] 31.9 g/dL 32-36 [facility] Work Phone: [phone] No Panel Informationon 03-17 Estimated Creatinine Clearance Calc 42.33 ml/min [facility] Work Phone: [phone] Estimated GFR (MDRD) Amer 73 mL/min >60 [facility] Work Phone: [phone] Comment on above: GFR Calc Estimated GFR (MDRD) Non-Af Amer 61 mL/min >60 [facility] Work Phone: [phone] Comment on above: Non- GFR Calc Platelets bldon 03-17-2022 Platelets (Bld) [#/Vol] 200 10*3/uL 150-450 [facility] Work Phone: [phone] Serum or plasma albumin jasbir urement (mass/volume)on 03-17-2022 Albumin [Mass/Vol] 3.1 g/dL 3.2-5.0 [facility] Work Phone: [phone] Serum or plasma albumin/glob ulin mass ratioon 03-17-2022 Albumin/Globulin [Mass ratio] 1.0 {ratio} 0.9-2.4 [facility] Work Phone: [phone] Serum or plasma calcium jasbir urement (mass/volume)on 03-17-2022 Calcium [Mass/Vol] 8.6 mg/dL 8.5-10.1 [facility] Work Phone: Serum or plasma creatinine m easurement (mass/volume)on 03-17-2022 Creatinine [Mass/Vol] 0.95 mg/dL 0.55-1.02 [facility]: [phone] Comment on above: The validity of the calculated GFR & GFRAA in patients over 70 years has not been determined. Clinical correlation is essential. Serum or plasma urea nitroge n measurement (mass/volume)on 03-17-2022 Urea nitrogen [Mass/Vol] 16 mg/dL 7-18 [facility] Work Phone: Thin prep Papanicolaou smear with manual screeningon 03-17-2022 Thin prep Papanicolaou smear with manual screening 12 U/L 15-37 [facility] Work Phone: [phone] Thin prep Papanicolaou smear with manual screening 7 5-15 [facility] Work Phone: [phone] Thin prep Papanicolaou smear with manual screening 181 U/L 84-246 [facility] Work Phone: Absolute lymphocyte counton 02-12-2022 Lymphocytes Auto (Unsp spec) [#/Vol] 1.50 10*3/uL 0.83-4.51 [facility] Work Phone: Basophil percentageon 2021 Basophils/100 WBC (Bld) 0.6 % 0-1 [facility] Work Phone: Bilirubin [Mass/Vol] 0.40 mg/dL 0.20-1.00 [facility] Work Phone: [phone] Comment on above: For patients on eltr ombopag therapy, use of Dimension [place] TBIL is not recommended. Chloride [Moles/Vol] 106 mmol/L 98-107 [facility] Work Phone: Eosinophils/100 WBC (Bld) 0.1 % 0-5 [facility] Work Phone: Glucose [Mass/Vol] 128 mg/dL 74-106 [facility] Work Phone: Comment on above: Fasting Glucose resu lt greater than or equal to 126 mg/dL suggests DIABETES MELLITUS per A.D.A. criteria. Neutrophils (Bld) [#/Vol] 11.0 10*3/uL 2.0-7.7 [facility] Work Phone: Neutrophils/100 WBC (Bld) 79.1 % 47-70 [facility] Work Phone: Potassium [Moles/Vol] 3.6 mmol/L 3.5-5.1 [facility] Work Phone: Protein [Mass/Vol] 6.1 g/dL 6.4-8.2 [facility] Work Phone: Sodium [Moles/Vol] 139 mmol/L 136-145 [facility] Work Phone: WBC (Bld) [#/Vol] 13.9 10*3/uL 4.4-11.[address] [facility] Work Phone: Basophil percentage 5-10 SEEN /hpf 0-5 [facility] Work Phone: Bilirubin Test strip Ql (U)o n 02-12-2022 Bilirubin Ql (U) 3 mg/dL Negative [facility] Work Phone: [phone] Comment on above: COLOR OF URINE MAY A FFECT DIPSTICK RESULTS. Blood erythrocytes count (nu mber/volume)on 02-12-2022 RBC (Bld) [#/Vol] 3.50 10*6/uL 4.2-5.[address] [facility] Work Phone: Blood hemoglobin measurement (mass/volume)on 02-12-2022 Hemoglobin (Bld) [Mass/Vol] 10.7 g/dL 12.0-15.0 [facility] Work Phone: Blood lymphocytes/100 leukoc yteson 02-12-2022 Lymphocytes/100 WBC (Bld) 10.8 % 19-41 [facility] Work Phone: Blood monocytes/100 leukocyt eson 02-12-2022 Monocytes/100 WBC (Bld) 8.5 % 0-10 [facility] Work Phone: [phone] Blood platelet mean volumeon 02-12-2022 Platelet mean volume (Bld) [Entitic vol] 10.1 fL 6.2-12.0 [facility] Work Phone: [phone] Determination of erythrocyte mean corpuscular volume (MCV)on 02-12-2022 MCV (RBC) [Entitic vol] 89.1 fL 81-99 [facility] Work Phone: Direct bilirubinon Bilirubin.direct [Mass/Vol] 0.09 mg/dL 0.00-0.30 [facility] Work Phone: [phone] Hematocrit Auto (Bld) [Volum e fraction]on 02-12-2022 Hematocrit (Bld) [Volume fraction] 31.2 % 37-47 [facility] Work Phone: [phone] Ketones Test strip Ql (U)on 02-12-2022 Ketones Ql (U) 15 mg/dl Negative [facility] Work Phone: Laboratory - Chemistry and C hemistry - challengeon 02-12-2022 ALP [Catalytic activity/Vol] 104 U/L 45-117 [facility] Work Phone: ALT [Catalytic activity/Vol] 18 U/L 13-56 [facility] Work Phone: [phone] CO2 [Moles/Vol] 27.0 mmol/L 21.0-32.0 [facility] Work Phone: Globulin (S) [Mass/Vol] 2.9 g/dL 2.2-4.2 [facility] Work Phone: [phone] Urea nitrogen/Creatinine [Mass ratio] 14.8 mg/mg 10-20 [facility] Work Phone: [phone] Laboratory - Hematology and Cell countson 02-12-2022 Erythrocyte distribution width (RBC) [Entitic vol] 53.5 fL 35.1-43.9 [facility] Work Phone: [phone] Erythrocyte distribution width (RBC) [Ratio] 16.6 % 11.6-14.6 [facility] Work Phone: [phone] Immature granulocytes/100 WBC (Bld) 0.900 % 0.0-0.9 [facility] Work Phone: [phone] Comment on above: IG% - Immature Granu locytes (promyelocytes, myelocytes and metamyelocytes) > 1% indicates that a LEFT SHIFT is Present. MCH (RBC) [Entitic mass] 30.6 pg 27.0-32.0 [facility] Work Phone: [phone] Nucleated RBC/100 WBC (Bld) [Ratio] 0 % 0-5 [facility] Work Phone: [phone] MCHC Auto (RBC) [Mass/Vol]on 02-12-2022 MCHC (RBC) [Mass/Vol] 34.3 g/dL 32-36 [facility] Work Phone: Mucus LM Ql (Urine sed)on Mucus Ql (Urine sed) 0 SEEN /hpf [facility] Work Phone: [phone] Nitrite Test strip Ql (U)on 02-12-2022 Nitrite Ql (U) Negative Negative [facility] Work Phone: No Panel Informationon 02-12 Estimated Creatinine Clearance Calc 34.96 ml/min [facility] Work Phone: [phone] Estimated GFR (MDRD) Amer 59 mL/min >60 [facility] Work Phone: [phone] Comment on above: GFR Calc Estimated GFR (MDRD) Non-Af Amer 49 mL/min >60 [facility] Work Phone: [phone] Comment on above: Non- GFR Calc Platelets bldon 02-12-2022 Platelets (Bld) [#/Vol] 152 10*3/uL 150-450 [facility] Work Phone: [phone] Protein Test strip Ql (U)on 02-12-2022 Protein Ql (U) 100 mg/dl Negative [facility] Work Phone: Serum or plasma albumin jasbri urement (mass/volume)on 02-12-2022 Albumin [Mass/Vol] 3.2 g/dL 3.2-5.0 [facility] Work Phone: Serum or plasma calcium jasbir urement (mass/volume)on 02-12-2022 Calcium [Mass/Vol] 8.6 mg/dL 8.5-10.1 [facility] Work Phone: [phone] Serum or plasma creatinine m easurement (mass/volume)on 02-12-2022 Creatinine [Mass/Vol] 1.15 mg/dL 0.55-1.02 [facility] Work Phone: Comment on above: The validity of the calculated GFR & GFRAA in patients over 70 years has not been determined. Clinical correlation is essential. Serum or plasma urea nitroge n measurement (mass/volume)on 02-12-2022 Urea nitrogen [Mass/Vol] 17 mg/dL 7-18 [facility] Work Phone: Squamous epithelial cells de tection in urine sediment by light microscopyon 02-12-2022 Epithelial cells.squamous LM Ql (Urine sed) 0-5 SEEN /hpf 5-10 [facility] Work Phone: Thin prep Papanicolaou smear with manual screeningon 02-12-2022 Thin prep Papanicolaou smear with manual screening 15 U/L 15-37 [facility] Work Phone: Thin prep Papanicolaou smear with manual screening 6 5-15 [facility] Work Phone: Urine blood detectionon 01-17 RBC Ql (U) 25 /ul Negative [facility] Work Phone: [phone] RBC Ql (U) 0 SEEN /hpf 0-5 [facility] Work Phone: Urine clarityon 02-12-2022 Clarity (U) Sl. Cloudy Clear [facility] Work Phone: Urine color determinationon 02-12-2022 Color (U) Yellow Yellow [facility] Work Phone: Urine glucose detectionon Glucose Ql (U) Normal mg/dl Normal [facility] Work Phone: Urine leukocyte esterase det ection by dipstickon 02-12-2022 Leukocyte esterase Test strip Ql (U) 500 /ul Negative [facility] Work Phone: Urine pHon 02-12-2022 pH (U) 5.0 [pH] 5.0 - 8.0 [facility] Work Phone: [phone] Urine sediment bacteria coun t by microscopy (number/high power field)on 02-12-2022 Bacteria LM.HPF (Urine sed) [#/Area] 0 /[HPF] None Seen [facility] Work Phone: Urine specific gravity measu rementon 02-12-2022 Specific gravity (U) [Rel density] 1.020 1.002-1.030 [facility] Work Phone: Urobilinogen Auto test strip Ql (U)on 02-12-2022 Urobilinogen Ql (U) 1 mg/dl Normal [facility] Work Phone: Absolute lymphocyte counton 02-03-2022 Lymphocytes Auto (Unsp spec) [#/Vol] 1.80 10*3/uL 0.83-4.51 [facility] Work Phone: Basophil percentageon 2021 Basophils/100 WBC (Bld) 0.5 % 0-1 [facility] Work Phone: Bilirubin [Mass/Vol] 0.50 mg/dL 0.20-1.00 [facility] Work Phone: Comment on above: For patients on eltr ombopag therapy, use of Dimension [place] TBIL is not recommended. Chloride [Moles/Vol] 109 mmol/L 98-107 [facility] Work Phone: Eosinophils/100 WBC (Bld) 0.3 % 0-5 [facility] Work Phone: Glucose [Mass/Vol] 132 mg/dL 74-106 [facility] Work Phone: Comment on above: Fasting Glucose resu lt greater than or equal to 126 mg/dL suggests DIABETES MELLITUS per A.D.A. criteria. Neutrophils (Bld) [#/Vol] 4.7 10*3/uL 2.0-7.7 [facility] Work Phone: Neutrophils/100 WBC (Bld) 62.9 % 47-70 [facility] Work Phone: Potassium [Moles/Vol] 3.9 mmol/L 3.5-5.1 [facility] Work Phone: Protein [Mass/Vol] 6.3 g/dL 6.4-8.2 [facility] Work Phone: Sodium [Moles/Vol] 143 mmol/L 136-145 [facility] Work Phone: WBC (Bld) [#/Vol] 7.4 10*3/uL 4.4-11.0 [facility] Work Phone: Blood erythrocytes count (nu mber/volume)on 02-03-2022 RBC (Bld) [#/Vol] 3.72 10*6/uL 4.2-5.[address] [facility] Work Phone: Blood hemoglobin measurement (mass/volume)on 02-03-2022 Hemoglobin (Bld) [Mass/Vol] 11.2 g/dL 12.0-15.0 [facility] Work Phone: Blood lymphocytes/100 leukoc yteson 02-03-2022 Lymphocytes/100 WBC (Bld) 24.2 % 19-41 [facility] Work Phone: Blood monocytes/100 leukocyt eson 02-03-2022 Monocytes/100 WBC (Bld) 11.7 % 0-10 [facility] Work Phone: Blood platelet mean volumeon 02-03-2022 Platelet mean volume (Bld) [Entitic vol] 9.7 fL 6.2-12.0 [facility] Work Phone: Determination of erythrocyte mean corpuscular volume (MCV)on 02-03-2022 MCV (RBC) [Entitic vol] 90.9 fL 81-99 [facility] Work Phone: [phone] Hematocrit Auto (Bld) [Volum e fraction]on 02-03-2022 Hematocrit (Bld) [Volume fraction] 33.8 % 37-47 [facility] Work Phone: Laboratory - Chemistry and C hemistry - challengeon 02-03-2022 ALP [Catalytic activity/Vol] 84 U/L 45-117 [facility] Work Phone: [phone] ALT [Catalytic activity/Vol] 19 U/L 13-56 [facility] Work Phone: [phone] CO2 [Moles/Vol] 26.0 mmol/L 21.0-32.0 [facility] Work Phone: [phone] Globulin (S) [Mass/Vol] 3.3 g/dL 2.2-4.2 [facility] Work Phone: [phone] Magnesium [Mass/Vol] 1.6 mg/dL 1.6-2.6 [facility] Work [facility]: [phone] Urea nitrogen/Creatinine [Mass ratio] 19.3 mg/mg 10-20 [facility] Work Phone: [phone] Laboratory - Hematology and Cell countson 02-03-2022 Erythrocyte distribution width (RBC) [Entitic vol] 57.1 fL 35.1-43.9 [facility] Work Phone: [phone] Erythrocyte distribution width (RBC) [Ratio] 17.4 % 11.6-14.6 [facility] Work Phone: Immature granulocytes/100 WBC (Bld) 0.400 % 0.0-0.9 [facility] Work Phone: Comment on above: IG% - Immature Granu locytes (promyelocytes, myelocytes and metamyelocytes) > 1% indicates that a LEFT SHIFT is Present. MCH (RBC) [Entitic mass] 30.1 pg 27.0-32.0 [facility] Work Phone: Nucleated RBC/100 WBC (Bld) [Ratio] 0 % 0-5 [facility] Work Phone: [phone] MCHC Auto (RBC) [Mass/Vol]on 02-03-2022 MCHC (RBC) [Mass/Vol] 33.1 g/dL 32-36 [facility] Work Phone: No Panel Informationon 02-03 Estimated Creatinine Clearance Calc 41.03 ml/min [facility] Work Phone: Estimated GFR (MDRD) Amer 71 mL/min >60 [facility] Work Phone: Comment on above: GFR Calc Estimated GFR (MDRD) Non-Af Amer 59 mL/min >60 [facility] Work Phone: Comment on above: Non- GFR Calc Platelets bldon 02-03-2022 Platelets (Bld) [#/Vol] 186 10*3/uL 150-450 [facility] Work Phone: Serum or plasma albumin jasbir urement (mass/volume)on 02-03-2022 Albumin [Mass/Vol] 3.0 g/dL 3.2-5.0 [facility] Work Phone: Serum or plasma albumin/glob ulin mass ratioon 02-03-2022 Albumin/Globulin [Mass ratio] 0.9 {ratio} 0.9-2.4 [facility] Work Phone: [phone] Serum or plasma calcium jasbir urement (mass/volume)on 02-03-2022 Calcium [Mass/Vol] 8.5 mg/dL 8.5-10.1 [facility] Work Phone: [phone] Serum or plasma creatinine m easurement (mass/volume)on 02-03-2022 Creatinine [Mass/Vol] 0.98 mg/dL 0.55-1.02 [facility] Work Phone: Comment on above: The validity of the calculated GFR & GFRAA in patients over 70 years has not been determined. Clinical correlation is essential. Serum or plasma urea nitroge n measurement (mass/volume)on 02-03-2022 Urea nitrogen [Mass/Vol] 19 mg/dL 7-18 [facility] Work Phone: Thin prep Papanicolaou smear with manual screeningon 02-03-2022 Thin prep Papanicolaou smear with manual screening 14 U/L 15-37 [facility] Work Phone: [phone] Thin prep Papanicolaou smear with manual screening 8 5-15 [facility] Work Phone: Absolute lymphocyte counton 01-13-2022 Lymphocytes Auto (Unsp spec) [#/Vol] 1.47 10*3/uL 0.83-4.51 [facility] Work Phone: Basophil percentageon 2021 Basophils/100 WBC (Bld) 0.6 % 0-1 [facility] Work Phone: Bilirubin [Mass/Vol] 0.50 mg/dL 0.20-1.00 [facility] Work Phone: Comment on above: For patients on eltr ombopag therapy, use of Dimension [place] TBIL is not recommended. Chloride [Moles/Vol] 107 mmol/L 98-107 [facility] Work Phone: Eosinophils/100 WBC (Bld) 0.1 % 0-5 [facility] Work Phone: Glucose [Mass/Vol] 210 mg/dL 74-106 [facility] Work Phone: Comment on above: Glucose result great er than or equal to 200 mg/dLsuggests DIABETES MELLITUS per A.D.A. criteria. Neutrophils (Bld) [#/Vol] 6.3 10*3/uL 2.0-7.7 [facility] Work Phone: Neutrophils/100 WBC (Bld) 71.1 % 47-70 [facility] Work Phone: Potassium [Moles/Vol] 3.7 mmol/L 3.5-5.1 [facility] Work Phone: Protein [Mass/Vol] 6.3 g/dL 6.4-8.2 [facility] Work Phone: Sodium [Moles/Vol] 141 mmol/L 136-145 [facility] Work Phone: [phone] WBC (Bld) [#/Vol] 8.9 10*3/uL 4.4-11.0 [facility] Work Phone: Blood erythrocytes count (nu mber/volume)on 01-13-2022 RBC (Bld) [#/Vol] 3.99 10*6/uL 4.2-5.[address] [facility] Work Phone: Blood hemoglobin measurement (mass/volume)on 01-13-2022 Hemoglobin (Bld) [Mass/Vol] 11.5 g/dL 12.0-15.0 [facility] Work Phone: Blood lymphocytes/100 leukoc yteson 01-13-2022 Lymphocytes/100 WBC (Bld) 16.6 % 19-41 [facility] Work Phone: [phone] Blood monocytes/100 leukocyt eson 01-13-2022 Monocytes/100 WBC (Bld) 11.1 % 0-10 [facility] Work Phone: Blood platelet mean volumeon 01-13-2022 Platelet mean volume (Bld) [Entitic vol] 10.0 fL 6.2-12.0 [facility] Work Phone: Determination of erythrocyte mean corpuscular volume (MCV)on 01-13-2022 MCV (RBC) [Entitic vol] 88.0 fL 81-99 [facility] Work Phone: Hematocrit Auto (Bld) [Volum e fraction]on 01-13-2022 Hematocrit (Bld) [Volume fraction] 35.1 % 37-47 [facility] Work Phone: Laboratory - Chemistry and C hemistry - challengeon 01-13-2022 ALP [Catalytic activity/Vol] 87 U/L 45-117 [facility] Work Phone: [phone] ALT [Catalytic activity/Vol] 14 U/L 13-56 [facility] Work Phone: [phone] CO2 [Moles/Vol] 25.0 mmol/L 21.0-32.0 [facility] Work Phone: [phone] Globulin (S) [Mass/Vol] 3.3 g/dL 2.2-4.2 [facility] Work Phone: [phone] Magnesium [Mass/Vol] 1.6 mg/dL 1.6-2.6 [facility] Work Phone: [phone] Urea nitrogen/Creatinine [Mass ratio] 13.6 mg/mg 10-20 [facility] Work Phone: [phone] Laboratory - Hematology and Cell countson 01-13-2022 Erythrocyte distribution width (RBC) [Entitic vol] 52.5 fL 35.1-43.9 [facility] Work Phone: [phone] Erythrocyte distribution width (RBC) [Ratio] 16.7 % 11.6-14.6 [facility] Work Phone: [phone] Immature granulocytes/100 WBC (Bld) 0.500 % 0.0-0.9 [facility] Work Phone: [phone] Comment on above: IG% - Immature Granu locytes (promyelocytes, myelocytes and metamyelocytes) > 1% indicates that a LEFT SHIFT is Present. MCH (RBC) [Entitic mass] 28.8 pg 27.0-32.0 [facility] Work Phone: [phone] Nucleated RBC/100 WBC (Bld) [Ratio] 0 % 0-5 [facility] Work Phone: [phone] MCHC Auto (RBC) [Mass/Vol]on 01-13-2022 MCHC (RBC) [Mass/Vol] 32.8 g/dL 32-36 [facility] Work Phone: [phone] Panel Informationon 01-13 Estimated Creatinine Clearance Calc 32.17 ml/min [facility] Work Phone: [phone] Estimated GFR (MDRD) Amer 54 mL/min >60 [facility] Work Phone: Comment on above: GFR Calc Estimated GFR (MDRD) Non-Af Amer 44 mL/min >60 [facility] Work Phone: Comment on above: Non- GFR Calc Platelets bldon 01-13-2022 Platelets (Bld) [#/Vol] 160 10*3/uL 150-450 [facility] Work Phone: Serum or plasma albumin jasbir urement (mass/volume)on 01-13-2022 Albumin [Mass/Vol] 3.0 g/dL 3.2-5.0 [facility] Work Phone: Serum or plasma albumin/glob ulin mass ratioon 01-13-2022 Albumin/Globulin [Mass ratio] 0.9 {ratio} 0.9-2.4 [facility] Work Phone: Serum or plasma calcium jasbir urement (mass/volume)on 01-13-2022 Calcium [Mass/Vol] 8.4 mg/dL 8.5-10.1 [facility] Work Phone: Serum or plasma creatinine m easurement (mass/volume)on 01-13-2022 Creatinine [Mass/Vol] 1.25 mg/dL 0.55-1.02 [facility] Work Phone: Comment on above: The validity of the calculated GFR & GFRAA in patients over 70 years has not been determined. Clinical correlation is essential. Serum or plasma urea nitroge n measurement (mass/volume)on 01-13-2022 Urea nitrogen [Mass/Vol] 17 mg/dL 7-18 [facility] Work Phone: Thin prep Papanicolaou smear with manual screeningon 01-13-2022 Thin prep Papanicolaou smear with manual screening 11 U/L 15-37 [facility] Work Phone: Thin prep Papanicolaou smear with manual screening 9 5-15 [facility] Work Phone: Basophil percentageon 09-21- 2022 Basophil percentage 2.9 mg/dL 2.5-4.[address] [facility] Work Phone: Thin prep Papanicolaou smear with manual screeningon 01-06-2022 Thin prep Papanicolaou smear with manual screening 191 U/L 84-246 [facility] Work Phone: Absolute lymphocyte counton 12-06-2021 Lymphocytes Auto (Unsp spec) [#/Vol] 2.14 10*3/uL 0.83-4.51 [facility] Work Phone: Basophil percentageon 2021 Basophil percentage Not Reportable [facility] Work Phone: Chloride [Moles/Vol] 106 mmol/L 98-107 [facility] Work Phone: Glucose [Mass/Vol] 125 mg/dL 74-106 [facility] Work Phone: Comment on above: Fasting Glucose resu lt from 100 to 125 mg/dL suggests IMPAIRED HOMEOSTASIS per A.D.A. criteria. Neutrophils (Bld) [#/Vol] 13.9 10*3/uL 2.0-7.7 [facility] Work Phone: Potassium [Moles/Vol] 3.4 mmol/L 3.5-5.1 [facility] Work Phone: Sodium [Moles/Vol] 139 mmol/L 136-145 [facility] Work Phone: WBC (Bld) [#/Vol] 17.8 10*3/uL 4.4-11.[address] [facility] Work Phone: Blood band neutrophil count as percentage of total leukocyteson 12-06-2021 Band form neutrophils/100 WBC (Bld) 2 % 0-5 [facility] Work Phone: Blood eosinophils/100 leukoc yteson 12-06-2021 Eosinophils/100 WBC (Bld) 1 % 0-5 [facility] Work Phone: Blood erythrocytes count (nu mber/volume)on 12-06-2021 RBC (Bld) [#/Vol] 4.76 10*6/uL 4.2-5.[address] [facility] Work Phone: Blood hemoglobin measurement (mass/volume)on 12-06-2021 Hemoglobin (Bld) [Mass/Vol] 13.2 g/dL 12.0-15.0 [facility] Work Phone: Blood lymphocytes/100 leukoc yteson 12-06-2021 Lymphocytes/100 WBC (Bld) 12 % 19-41 [facility] Work Phone: [phone] Blood monocytes/100 leukocyt eson 12-06-2021 Monocytes/100 WBC (Bld) 4 % 0-10 [facility] Work Phone: Blood platelet adequacy dete ction by light microscopyon 12-06-2021 Platelets LM Ql (Bld) SLT DEC ADEQ [facility] Work Phone: Blood platelet mean volumeon 12-06-2021 Platelet mean volume (Bld) [Entitic vol] 11.7 fL 6.2-12.0 [facility] Work Phone: Blood segmented neutrophils/ 100 leukocyteson 12-06-2021 Segmented neutrophils/100 WBC (Bld) 76 % 47-70 [facility] Work Phone: Determination of erythrocyte mean corpuscular volume (MCV)on 12-06-2021 MCV (RBC) [Entitic vol] 83.8 fL 81-99 [facility] Work Phone: Hematocrit Auto (Bld) [Volum e fraction]on 12-06-2021 Hematocrit (Bld) [Volume fraction] 39.9 % 37-47 [facility] Work Phone: Laboratory - Chemistry and C hemistry - challengeon 12-06-2021 CO2 [Moles/Vol] 26.0 mmol/L 21.0-32.0 [facility] Work Phone: Natriuretic peptide B (Bld) [Mass/Vol] 109.9 pg/mL 0-100 [facility] Work Phone: Urea nitrogen/Creatinine [Mass ratio] 22.9 mg/mg 10-20 [facility] Work Phone: Laboratory - Hematology and Cell countson 12-06-2021 Erythrocyte distribution width (RBC) [Entitic vol] 43.5 fL 35.1-43.9 [facility] Work Phone: Erythrocyte distribution width (RBC) [Ratio] 14.2 % 11.6-14.6 [facility] Work Phone: MCH (RBC) [Entitic mass] 27.7 pg 27.0-32.0 [facility] Work Phone: Myelocytes/100 WBC (Bld) 5 % 0-0 [facility] Work Phone: MCHC Auto (RBC) [Mass/Vol]on 12-06-2021 MCHC (RBC) [Mass/Vol] 33.1 g/dL 32-36 [facility] Work Phone: No Panel Informationon 12-06 Atypical Lymphocytes 1+ % [facility] Work Phone: [phone] Estimated Creatinine Clearance Calc 43.71 ml/min [facility] Work Phone: [phone] Estimated GFR (MDRD) Amer 77 mL/min >60 [facility] Work Phone: Comment on above: GFR Calc Estimated GFR (MDRD) Non-Af Amer 64 mL/min >60 [facility] Work Phone: Comment on above: Non- GFR Calc Troponin I High Sensitivity 6 pg/mL 3.0-54.0 [facility] Work Phone: Comment on above: Please Note: New [place] t Units and Gender Specific Reference Ranges. For more information see Policy Stat Procedure [place] High Sensitivity Troponin (TNIH) and attachments. Platelets bldon 12-06-2021 Platelets (Bld) [#/Vol] 107 10*3/uL 150-450 [facility] Work Phone: RBC morphologyon 12-06-2021 RBC morphology finding Nom (Bld) NORM C+C NORMAL NORM C&C [facility] Work Phone: Review by pathologiston 11-17 Pathologist review Ammon (Unsp spec) [Interp] Solange rubi [facility] Work Phone: [phone] Pathologist review Ammon (Unsp spec) [Interp] Reviewed [facility] Work Phone: Comment on above: Previous reported re sult: Solange rubi Edited by: RGOHENRIQUE on 12/08/21:0906Neutrophilic leukocytosis.Mild Thrombocytopenia.Clinical correlation necessary.Clyde Espinal M.D. 12/08/21 AMENDED REPORT 12/08/21905 PATH REV previously reported as: Solange rubi Serum or plasma calcium jasbir urement (mass/volume)on 12-06-2021 Calcium [Mass/Vol] 7.7 mg/dL 8.5-10.1 [facility] Work Phone: Serum or plasma creatinine m easurement (mass/volume)on 12-06-2021 Creatinine [Mass/Vol] 0.92 mg/dL 0.55-1.02 [facility] Work Phone: Comment on above: The validity of the calculated GFR & GFRAA in patients over 70 years has not been determined. Clinical correlation is essential. Serum or plasma urea nitroge n measurement (mass/volume)on 12-06-2021 Urea nitrogen [Mass/Vol] 21 mg/dL 7-18 [facility] Work Phone: Thin prep Papanicolaou smear with manual screeningon 12-06-2021 Thin prep Papanicolaou smear with manual screening 7 5-15 [facility] Work Phone: Total cell counton 2 Cells counted Molgen (Bld/Tiss) [#] 100 MANUAL DIFF [facility] Work Phone: [phone] Absolute lymphocyte counton 12-02-2021 Lymphocytes Auto (Unsp spec) [#/Vol] 1.85 10*3/uL 0.83-4.51 [facility] Work Phone: [phone] Basophil percentageon 2021 Basophils/100 WBC (Bld) 0.6 % 0-1 [facility] Work Phone: Bilirubin [Mass/Vol] 0.40 mg/dL 0.20-1.00 [facility] Work Phone: Comment on above: For patients on eltr ombopag therapy, use of Dimension [place] TBIL is not recommended. Chloride [Moles/Vol] 108 mmol/L 98-107 [facility] Work Phone: Eosinophils/100 WBC (Bld) 5.0 % 0-5 [facility] Work Phone: Glucose [Mass/Vol] 112 mg/dL 74-106 [facility] Work Phone: Comment on above: Fasting Glucose resu lt from 100 to 125 mg/dL suggests IMPAIRED HOMEOSTASIS per A.D.A. criteria. Neutrophils (Bld) [#/Vol] 4.1 10*3/uL 2.0-7.7 [facility] Work Phone: Neutrophils/100 WBC (Bld) 58.0 % 47-70 [facility] Work Phone: Potassium [Moles/Vol] 3.8 mmol/L 3.5-5.1 [facility] Work Phone: Protein [Mass/Vol] 6.9 g/dL 6.4-8.2 [facility] Work Phone: Sodium [Moles/Vol] 141 mmol/L 136-145 [facility] Work Phone: WBC (Bld) [#/Vol] 7.1 10*3/uL 4.4-11.0 [facility] Work Phone: Blood erythrocytes count (nu mber/volume)on 12-02-2021 RBC (Bld) [#/Vol] 5.08 10*6/uL 4.2-5.[address] [facility] Work Phone: Blood hemoglobin measurement (mass/volume)on 12-02-2021 Hemoglobin (Bld) [Mass/Vol] 14.1 g/dL 12.0-15.0 [facility] Work Phone: Blood lymphocytes/100 leukoc yteson 12-02-2021 Lymphocytes/100 WBC (Bld) 26.2 % 19-41 [facility] Work Phone: Blood monocytes/100 leukocyt eson 12-02-2021 Monocytes/100 WBC (Bld) 9.9 % 0-10 [facility] Work Phone: Blood platelet mean volumeon 12-02-2021 Platelet mean volume (Bld) [Entitic vol] 10.7 fL 6.2-12.0 [facility] Work Phone: Determination of erythrocyte mean corpuscular volume (MCV)on 12-02-2021 MCV (RBC) [Entitic vol] 84.3 fL 81-99 [facility] Work Phone: Hematocrit Auto (Bld) [Volum e fraction]on 12-02-2021 Hematocrit (Bld) [Volume fraction] 42.8 % 37-47 [facility] Work Phone: Laboratory - Chemistry and C hemistry - challengeon 12-02-2021 ALP [Catalytic activity/Vol] 82 U/L 45-117 [facility] Work Phone: ALT [Catalytic activity/Vol] 22 U/L 13-56 [facility] Work Phone: [phone] CO2 [Moles/Vol] 28.0 mmol/L 21.0-32.0 [facility] Work Phone: Globulin (S) [Mass/Vol] 3.7 g/dL 2.2-4.2 [facility] Work Phone: Urea nitrogen/Creatinine [Mass ratio] 18.2 mg/mg 10-20 [facility] Work Phone: Laboratory - Hematology and Cell countson 12-02-2021 Erythrocyte distribution width (RBC) [Entitic vol] 43.3 fL 35.1-43.9 [facility] Work Phone: Erythrocyte distribution width (RBC) [Ratio] 14.0 % 11.6-14.6 [facility] Work Phone: [phone] Immature granulocytes/100 WBC (Bld) 0.300 % 0.0-0.9 [facility] Work Phone: [phone] Comment on above: IG% - Immature Granu locytes (promyelocytes, myelocytes and metamyelocytes) > 1% indicates that a LEFT SHIFT is Present. MCH (RBC) [Entitic mass] 27.8 pg 27.0-32.0 [facility] Work Phone: Nucleated RBC/100 WBC (Bld) [Ratio] 0 % 0-5 [facility] Work Phone: [phone] MCHC Auto (RBC) [Mass/Vol]on 12-02-2021 MCHC (RBC) [Mass/Vol] 32.9 g/dL 32-36 [facility] Work Phone: No Panel Informationon 12-02 Estimated GFR (MDRD) Amer 62 mL/min >60 [facility] Work Phone: [phone] Comment on above: GFR Calc Estimated GFR (MDRD) Non-Af Amer 52 mL/min >60 [facility] Work Phone: [phone] Comment on above: Non- GFR Calc Platelets bldon 12-02-2021 Platelets (Bld) [#/Vol] 217 10*3/uL 150-450 [facility] Work Phone: [phone] Serum or plasma albumin jasbir urement (mass/volume)on 12-02-2021 Albumin [Mass/Vol] 3.2 g/dL 3.2-5.0 [facility] Work Phone: [phone] Serum or plasma albumin/glob ulin mass ratioon 12-02-2021 Albumin/Globulin [Mass ratio] 0.9 {ratio} 0.9-2.4 [facility] Work Phone: [phone] Serum or plasma calcium jasbir urement (mass/volume)on 12-02-2021 Calcium [Mass/Vol] 8.4 mg/dL 8.5-10.1 [facility] Work Phone: Serum or plasma creatinine m easurement (mass/volume)on 12-02-2021 Creatinine [Mass/Vol] 1.10 mg/dL 0.55-1.02 [facility] Work Phone: Comment on above: The validity of the calculated GFR & GFRAA in patients over 70 years has not been determined. Clinical correlation is essential. Serum or plasma urea nitroge n measurement (mass/volume)on 12-02-2021 Urea nitrogen [Mass/Vol] 20 mg/dL 7-18 [facility] Work Phone: Thin prep Papanicolaou smear with manual screeningon 12-02-2021 Thin prep Papanicolaou smear with manual screening 15 U/L 15-37 [facility] Work Phone: Thin prep Papanicolaou smear with manual screening 5 5-15 [facility] Work Phone: No Panel Informationon 11-11 D-Dimer Quantitative (PE/DVT) 1.33 FEU/ug/m 0.27-0.49 [facility] Work Phone: Comment on above: D-Dimer ELEVATED (>0 .49): Additional studies and clinicalassessments are indicated to conclude diagnosis of:Deep Vein Thrombosis (DVT) or Pulmonary Embolism (PE) Basophil percentageon 2021 Creatinine [Mass/Vol] 1.2 mg/dL 0.55-1.02 [facility] Work Phone: Laboratory - Chemistry and C hemistry - challengeon 11-06-2021 GFR/1.73 sq M.predicted among non-blacks MDRD (S/P/Bld) [Vol rate/Area] 48.0000 mL/min/{1.73_m2} >60 [facility] Work Phone: [phone] Absolute lymphocyte counton 09-29-2021 Lymphocytes Auto (Unsp spec) [#/Vol] 1.74 10*3/uL 0.83-4.51 [facility] Work Phone: [phone] Basophil percentageon 2021 Basophils/100 WBC (Bld) 0.5 % 0-1 [facility] Work Phone: Bilirubin [Mass/Vol] 0.70 mg/dL 0.20-1.00 [facility] Work Phone: Comment on above: For patients on eltr ombopag therapy, use of Dimension [place] TBIL is not recommended. Chloride [Moles/Vol] 109 mmol/L 98-107 [facility] Work Phone: Cholesterol [Mass/Vol] 197 mg/dL <200 [facility] Work Phone: Comment on above: <200 mg/dL Desirable 200-240 mg/dL Borderline >240 mg/dL High Risk Eosinophils/100 WBC (Bld) 4.7 % 0-5 [facility] Work Phone: [phone] Glucose [Mass/Vol] 111 mg/dL 74-106 [facility] Work Phone: Comment on above: Fasting Glucose resu lt from 100 to 125 mg/dL suggests IMPAIRED HOMEOSTASIS per A.D.A. criteria. Neutrophils (Bld) [#/Vol] 3.8 10*3/uL 2.0-7.7 [facility] Work Phone: Neutrophils/100 WBC (Bld) 59.3 % 47-70 [facility] Work Phone: [phone] Potassium [Moles/Vol] 3.8 mmol/L 3.5-5.1 [facility] Work Phone: [phone] Protein [Mass/Vol] 7.1 g/dL 6.4-8.2 [facility] Work Phone: Sodium [Moles/Vol] 140 mmol/L 136-145 [facility] Work Phone: Triglyceride [Mass/Vol] 127 mg/dL <199 [facility] Work Phone: [phone] Comment on above: The drugs N-Acetylcy steine and Metamizole may falsely depress this assay.Serum Triglycerides Reference Interval Normal <150 mg/dL Borderline high 150 - 199 mg/dL High 200 - 499 mg/dL Very High > or = 500 mg/dL WBC (Bld) [#/Vol] 6.4 10*3/uL 4.4-11.0 [facility] Work Phone: [phone] Blood erythrocytes count (nu mber/volume)on 09-29-2021 RBC (Bld) [#/Vol] 5.38 10*6/uL 4.2-5.4 [facility]: Blood hemoglobin measurement (mass/volume)on 09-29-2021 Hemoglobin (Bld) [Mass/Vol] 14.6 g/dL 12.0-15.0 [facility] Work Phone: [phone] Blood lymphocytes/100 leukoc yteson 09-29-2021 Lymphocytes/100 WBC (Bld) 27.1 % 19-41 [facility] Work Phone: [phone] Blood monocytes/100 leukocyt eson 09-29-2021 Monocytes/100 WBC (Bld) 7.9 % 0-10 [facility] Work Phone: Blood platelet mean volumeon 09-29-2021 Platelet mean volume (Bld) [Entitic vol] 12.0 fL 6.2-12.0 [facility] Work Phone: [phone] Determination of erythrocyte mean corpuscular volume (MCV)on 09-29-2021 MCV (RBC) [Entitic vol] 83.6 fL 81-99 [facility] Work Phone: [phone] Hematocrit Auto (Bld) [Volum e fraction]on 09-29-2021 Hematocrit (Bld) [Volume fraction] 45.0 % 37-47 [facility] Work Phone: [phone] Laboratory - Chemistry and C hemistry - challengeon 09-29-2021 ALP [Catalytic activity/Vol] 85 U/L 45-117 [facility] Work Phone: [phone] ALT [Catalytic activity/Vol] 26 U/L 13-56 [facility] Work Phone: [phone] CO2 [Moles/Vol] 26.0 mmol/L 21.0-32.0 [facility] Work Phone: [phone] Globulin (S) [Mass/Vol] 3.3 g/dL 2.2-4.2 [facility] Work Phone: [phone] Urea nitrogen/Creatinine [Mass ratio] 23.3 mg/mg 10-20 [facility] Work Phone: [phone] Laboratory - Hematology and Cell countson 09-29-2021 Erythrocyte distribution width (RBC) [Entitic vol] 42.6 fL 35.1-43.9 [facility] Work Phone: [phone] Erythrocyte distribution width (RBC) [Ratio] 14.0 % 11.6-14.6 [facility] Work Phone: [phone] Immature granulocytes/100 WBC (Bld) 0.500 % 0.0-0.9 [facility] Work Phone: [phone] Comment on above: IG% - Immature Granu locytes (promyelocytes, myelocytes and metamyelocytes) > 1% indicates that a LEFT SHIFT is Present. MCH (RBC) [Entitic mass] 27.1 pg 27.0-32.0 [facility] Work Phone: [phone] Nucleated RBC/100 WBC (Bld) [Ratio] 0 % 0-5 [facility] Work Phone: [phone] MCHC Auto (RBC) [Mass/Vol]on 09-29-2021 MCHC (RBC) [Mass/Vol] 32.4 g/dL 32-36 [facility] Work Phone: No Panel Informationon 09-29 Estimated GFR (MDRD) Amer 59 mL/min >60 [facility] Work Phone: [phone] Comment on above: GFR Calc Estimated GFR (MDRD) Non-Af Amer 48 mL/min >60 [facility] Work Phone: [phone] Comment on above: Non- GFR Calc Platelets bldon 09-29-2021 Platelets (Bld) [#/Vol] 202 10*3/uL 150-450 [facility] Work Phone: [phone] Serum or plasma albumin jasbir urement (mass/volume)on 09-29-2021 Albumin [Mass/Vol] 3.8 g/dL 3.2-5.0 [facility] Work Phone: Serum or plasma albumin/glob ulin mass ratioon 09-29-2021 Albumin/Globulin [Mass ratio] 1.2 {ratio} 0.9-2.4 [facility] Work Phone: Serum or plasma calcium jasbir urement (mass/volume)on 09-29-2021 Calcium [Mass/Vol] 8.7 mg/dL 8.5-10.1 [facility] Work Phone: Serum or plasma cholesterol in HDL measurement (mass/volume)on 09-29-2021 Cholesterol in HDL [Mass/Vol] 53 mg/dL >40 [facility] Work Phone: Comment on above: The drugs N-Acetylcy steine and Metamizole may falsely depress this assay. Reference Range HDL <40 mg/dL Low HDL Cholesterol HDL >or= 60 mg/dL High HDL Cholesterol Serum or plasma cholesterol in VLDL measurement (mass/volume)on 09-29-2021 Cholesterol in VLDL [Mass/Vol] 25 mg/dL 5-40 [facility] Work Phone: Serum or plasma creatinine m easurement (mass/volume)on 09-29-2021 Creatinine [Mass/Vol] 1.16 mg/dL 0.55-1.02 [facility] Work Phone: Comment on above: The validity of the calculated GFR & GFRAA in patients over 70 years has not been determined. Clinical correlation is essential. Serum or plasma low density lipoprotein (LDL) cholesterol measurement (mass/volume)on 09-29-2021 Cholesterol in LDL [Mass/Vol] 119 mg/dL 0-130 [facility] Work Phone: Serum or plasma urea nitroge n measurement (mass/volume)on 09-29-2021 Urea nitrogen [Mass/Vol] 27 mg/dL 7-18 [facility] Work Phone: [phone] Thin prep Papanicolaou smear with manual screeningon 09-29-2021 Thin prep Papanicolaou smear with manual screening 18 U/L 15-37 [facility] Work Phone: Thin prep Papanicolaou smear with manual screening 5 5-15 [facility] Work Phone: Whole blood hemoglobin A1c/t otal hemoglobin ratio (mass fraction)on 09-29-2021 HbA1c (Bld) [Mass fraction] 5.9 % 3.8-5.6 [facility] Work Phone: Comment on above: Normal < 5.7 % Predi abetic 5.7 - 6.4 % Diabetic >or= 6.5 % Please note range changes. COVID-19 virus antigen assay SARS-CoV-2 (COVID-19) Ag IA.rapid Ql (Resp) [facility] Work Phone: Influenza virus A and B and SARS-CoV-2 (COVID-19) Ag panel - Upper respiratory specim SARS-CoV-2 (COVID-19) RNA KIRSTY+probe Ql (Resp) [facility] Work Phone: Vital Signs Date Time Vital Sign Value Performing Clinician Faci lity 09-18-2024 15:29-0400 Body height 154.[address] Michael Corcoran MD Work Phone: [facility] 09-18-2024 15:29-0400 Body mass index (BMI) [Ratio] 38 kg/m2 Dr. Michael Corcoran MD Work Phone: [facility] 09-18-2024 15:29-0400 Body temperature 98.2 [degF] Dr. Michael Corcoran MD Work Phone: [facility] 09-18-2024 15:29-0400 Body weight 91.[address] Michael Corcoran MD Work Phone: [facility] 09-18-2024 15:29-0400 Diastolic blood pressure 69 mm[Hg] Dr. Michael Corcoran MD Work Phone: [facility] 09-18-2024 15:29-0400 Heart rate 69 /min Dr. Michael Corcoran MD Work Phone: [facility] 09-18-2024 15:29-0400 Respiratory rate 18 /min Dr. Michael Corcoran MD Work Phone: [facility] 09-18-2024 15:29-0400 SaO2% (BldA) [Mass fraction] 95 % Dr. Michael Corcoran MD Work Phone: [facility] 09-18-2024 15:29-0400 Systolic blood pressure 104 mm[Hg] Dr. Michael Corcoran MD Work Phone: [facility] 08-10-2024 20:04-0400 Body temperature 98 [degF] Dr. Michael Corcoran MD Work Phone: [facility] 08-10-2024 20:04-0400 Diastolic blood pressure 62 mm[Hg] Dr. Michael Corcoran MD Work Phone: [facility] 08-10-2024 20:04-0400 Heart rate 67 /min Dr. Michael Corcoran MD Work Phone: [facility] 08-10-2024 20:04-0400 Respiratory rate 18 /min Dr. Michael Corcoran MD Work Phone: [facility] 08-10-2024 20:04-0400 SaO2% (BldA) [Mass fraction] 97 % Dr. Michael Corcoran MD Work Phone: [facility] 08-10-2024 20:04-0400 Systolic blood pressure 136 mm[Hg] Dr. Michael Corcoran MD Work Phone: [facility] 08-10-2024 18:12-0400 Body mass index (BMI) [Ratio] 39.2 kg/m2 Dr. Michael Corcoran MD Work Phone: [facility] 08-10-2024 18:12-0400 Body weight 94.[address] Michael Corcoran MD Work Phone: [facility] 08-10-2024 17:01-0400 Body height 154.[address] Michael Corcoran MD Work Phone: [facility] 07-11-2024 11:06-0400 Body height 154.[address] Michael Corcoran MD Work Phone: [facility] 07-11-2024 11:06-0400 Body mass index (BMI) [Ratio] 38.3 kg/m2 Dr. Michael Corcoran MD Work Phone: [facility] 07-11-2024 11:06-0400 Body temperature 96.8 [degF] Dr. Michael Corcoran MD Work Phone: [facility] 07-11-2024 11:06-0400 Body weight 92.[address] Michael Corcoran MD Work Phone: [facility] 07-11-2024 11:06-0400 Diastolic blood pressure 62 mm[Hg] Dr. iMchael Corcoran MD Work Phone: [facility] 07-11-2024 11:06-0400 Heart rate 60 /min Dr. Michael Corcoran MD Work Phone: [facility] 07-11-2024 11:06-0400 Respiratory rate 17 /min Dr. Michael Corcoran MD Work Phone: [facility] 07-11-2024 11:06-0400 SaO2% (BldA) [Mass fraction] 98 % Dr. Michael Corcoran MD Work Phone: [facility] 07-11-2024 11:06-0400 Systolic blood pressure 120 mm[Hg] Dr. Michael Corcoran MD Work Phone: [facility] 03-20-2024 11:26-0500 Body mass index (BMI) [Ratio] 37.6 kg/m2 Dr. Michael Corcoran MD Work Phone: [facility] 03-20-2024 11:26-0500 Body temperature 98.2 [degF] Dr. Michael Corcoran MD Work Phone: [facility] 03-20-2024 11:26-0500 Body weight 90.[address] Michael Corcoran MD Work Phone: [facility] 03-20-2024 11:26-0500 Diastolic blood pressure 76 mm[Hg] Dr. Michael Corcoran MD Work Phone: [facility] 03-20-2024 11:26-0500 Heart rate 64 /min Dr. Michael Corcoran MD Work Phone: [facility] 03-20-2024 11:26-0500 Respiratory rate 18 /min Dr. Michael Corcoran MD Work Phone: [facility] 03-20-2024 11:26-0500 SaO2% (BldA) [Mass fraction] 98 % Dr. Michael Corcoran MD Work Phone: [facility] 03-20-2024 11:26-0500 Systolic blood pressure 129 mm[Hg] Dr. Michael Corcoran MD Work Phone: [facility] 07-29-2023 10:48-0400 Body height 154.[address] Michael Corcoran Work Phone: [facility] 07-29-2023 10:48-0400 Body mass index (BMI) [Ratio] 37.8 kg/m2 Dr. Michael Corcoran Work Phone: [facility] 07-29-2023 10:48-0400 Body temperature 97.2 [degF] Dr. Michael Corcoran Work Phone: [facility] 07-29-2023 10:48-0400 Body weight 90.[address] Michael Corcoran Work Phone: [facility] 07-29-2023 10:48-0400 Diastolic blood pressure 73 mm[Hg] Dr. Michael Corcoran Work Phone: [facility] 07-29-2023 10:48-0400 Heart rate 85 /min Dr. Michael Corcoran Work Phone: [facility] 07-29-2023 10:48-0400 Respiratory rate 18 /min Dr. Michael Corcoran Work Phone: [facility] 07-29-2023 10:48-0400 SaO2% (BldA) [Mass fraction] 97 % Dr. Michael Corcoran Work Phone: [facility] 07-29-2023 10:48-0400 Systolic blood pressure 121 mm[Hg] Dr. Michael Corcoran Work Phone: [facility] 07-20-2023 15:43-0400 Body height 154.[address] Michael Corcoran Work Phone: [facility] 07-20-2023 15:43-0400 Body mass index (BMI) [Ratio] 37.7 kg/m2 Dr. Michael Corcoran Work Phone: [facility] 07-20-2023 15:43-0400 Body temperature 98.6 [degF] Dr. Michael Corcoran Work Phone: [facility] 07-20-2023 15:43-0400 Body weight 90.[address] Michael Corcoran Work Phone: [facility] 07-20-2023 15:43-0400 Diastolic blood pressure 76 mm[Hg] Dr. Michael Corcoran Work Phone: [facility] 07-20-2023 15:43-0400 Heart rate 86 /min Dr. Michael Corcoran Work Phone: [facility] 07-20-2023 15:43-0400 Respiratory rate 16 /min Dr. Michael Corcoran Work Phone: [facility] 07-20-2023 15:43-0400 SaO2% (BldA) [Mass fraction] 98 % Dr. Michael Corcoran Work Phone: [facility] 07-20-2023 15:43-0400 Systolic blood pressure 118 mm[Hg] Dr. Michael Corcoran Work Phone: [facility] 07-15-2023 11:33-0400 Body temperature 99.1 [degF] Dr. Michael Corcoran Work Phone: [facility] 07-15-2023 11:33-0400 Diastolic blood pressure 65 mm[Hg] Dr. Michael Corcoran Work Phone: [facility] 07-15-2023 11:33-0400 Heart rate 71 /min Dr. Michael Corcoran Work Phone: [facility] 07-15-2023 11:33-0400 Respiratory rate 16 /min Dr. Michael Corcoran Work Phone: [facility] 07-15-2023 11:33-0400 SaO2% (BldA) [Mass fraction] 93 % Dr. Michael Corcoran Work Phone: [facility] 07-15-2023 11:33-0400 Systolic blood pressure 135 mm[Hg] Dr. Michael Corcoran Work Phone: [facility] 07-14-2023 04:21-0400 Inhaled oxygen flow rate 2 L/min Dr. Michael Corcoran Work Phone: [facility] 07-13-2023 19:41-0400 Body height 154.[address] Michael Corcoran Work Phone: [facility] 07-13-2023 19:41-0400 Body mass index (BMI) [Ratio] 37.8 kg/m2 Dr. Michael Corcoran Work Phone: [facility] 07-13-2023 19:41-0400 Body weight 90.[address] Michael Corcoran Work Phone: [facility] 07-13-2023 15:08-0400 Body temperature 98.8 [degF] Dr. Michael Corcoran Work Phone: [facility] 07-13-2023 15:08-0400 Diastolic blood pressure 65 mm[Hg] Dr. Michael Corcoran Work Phone: [facility] 07-13-2023 15:08-0400 Heart rate 72 /min Dr. Michael Corcoran Work Phone: [facility] 07-13-2023 15:08-0400 Respiratory rate 18 /min Dr. Michael Corcoran Work Phone: [facility] 07-13-2023 15:08-0400 SaO2% (BldA) [Mass fraction] 95 % Dr. Michael Corcoran Work Phone: [facility] 07-13-2023 15:08-0400 Systolic blood pressure 186 mm[Hg] Dr. Michael Corcoran Work Phone: [facility] 07-13-2023 11:52-0400 Body height 154.[address] Michael Corcoran Work Phone: [facility] 07-13-2023 11:52-0400 Body mass index (BMI) [Ratio] 37.8 kg/m2 Dr. Michael Corcoran Work Phone: [facility] 07-13-2023 11:52-0400 Body weight 90.[address] Michael Corcoran Work Phone: [facility] 06-01-2023 09:10-0500 Body temperature 98.2 [degF] Dr. Michael Corcoran Work Phone: [facility] 06-01-2023 09:10-0500 Diastolic blood pressure 53 mm[Hg] Dr. Michael Corcoran Work Phone: [facility] 06-01-2023 09:10-0500 Heart rate 59 /min Dr. Michael Corcoran Work Phone: [facility] 06-01-2023 09:10-0500 Respiratory rate 20 /min Dr. Michael Corcoran Work Phone: [facility] 06-01-2023 09:10-0500 SaO2% (BldA) [Mass fraction] 99 % Dr. Michael Corcoran Work Phone: [facility] 06-01-2023 09:10-0500 Systolic blood pressure 117 mm[Hg] Dr. Michael Corcoran Work Phone: [facility] 06-01-2023 06:59-0500 Body height 154.[address] Michael Corcoran Work Phone: [facility] 06-01-2023 06:59-0500 Body mass index (BMI) [Ratio] 37.9 kg/m2 Dr. Michael Corcoran Work Phone: [facility] 06-01-2023 06:59-0500 Body weight [address] Michael Corcoran Work Phone: [facility] 05-09-2023 09:59-0500 Body temperature 97.2 [degF] Dr. Michael Corcoran Work Phone: [facility] 05-09-2023 09:59-0500 Body weight 91.[address] Michael Corcoran Work Phone: [facility] 05-09-2023 09:59-0500 Diastolic blood pressure 78 mm[Hg] Dr. Michael Corcoran Work Phone: [facility] 05-09-2023 09:59-0500 Heart rate 68 /min Dr. Michael Corcoran Work Phone: [facility] 05-09-2023 09:59-0500 Respiratory rate 17 /min Dr. Michael Corcoran Work Phone: [facility] 05-09-2023 09:59-0500 SaO2% (BldA) [Mass fraction] 97 % Dr. Michael Corcoran Work Phone: [facility] 05-09-2023 09:59-0500 Systolic blood pressure 122 mm[Hg] Dr. Michael Corcoran Work Phone: [facility] 04-28-2023 13:52-0500 Body mass index (BMI) [Ratio] 38 kg/m2 Dr. Michael Corcoran Work Phone: [facility] 04-28-2023 13:52-0500 Body temperature 97.1 [degF] Dr. Michael Corcoran Work Phone: [facility] 04-28-2023 13:52-0500 Body weight 91.[address] Michael Corcoran Work Phone: [facility] 04-28-2023 13:52-0500 Diastolic blood pressure 70 mm[Hg] Dr. Michael Corcoran Work Phone: [facility] 04-28-2023 13:52-0500 Heart rate 73 /min Dr. Michael Corcoran Work Phone: [facility] 04-28-2023 13:52-0500 Respiratory rate 14 /min Dr. Michael Corcoran Work Phone: [facility] 04-28-2023 13:52-0500 SaO2% (BldA) [Mass fraction] 97 % Dr. Michael Corcoran Work Phone: [facility] 04-28-2023 13:52-0500 Systolic blood pressure 118 mm[Hg] Dr. Michael Corcoran Work Phone: [facility] 03-29-2023 11:24-0500 Body mass index (BMI) [Ratio] 38.3 kg/m2 Dr. Michael Corcoran Work Phone: [facility] 03-29-2023 11:24-0500 Body temperature 98.3 [degF] Dr. Michael Corcoran Work Phone: [facility] 03-29-2023 11:24-0500 Body weight 92.[address] Michael Corcoran Work Phone: [facility] 03-29-2023 11:24-0500 Diastolic blood pressure 79 mm[Hg] Dr. Michael Corcoran Work Phone: [facility] 03-29-2023 11:24-0500 Heart rate 63 /min Dr. Michael Corcoran Work Phone: [facility] 03-29-2023 11:24-0500 Respiratory rate 18 /min Dr. Michael Corcoran Work Phone: [facility] 03-29-2023 11:24-0500 SaO2% (BldA) [Mass fraction] 96 % Dr. Michael Corcoran Work Phone: [facility] 03-29-2023 11:24-0500 Systolic blood pressure 148 mm[Hg] Dr. Michael Corcoran Work Phone: [facility] 01-04-2023 09:50-0400 Body height 154.[address] Michael Corcoran Work Phone: [facility] 01-04-2023 09:50-0400 Body mass index (BMI) [Ratio] 37.3 kg/m2 Dr. Michael Corcoran Work Phone: [facility] 01-04-2023 09:50-0400 Body temperature 98 [degF] Dr. Michael Corcoran Work Phone: [facility] 01-04-2023 09:50-0400 Body weight 89.[address] Michael Corcoran Work Phone: [facility] 01-04-2023 09:50-0400 Diastolic blood pressure 74 mm[Hg] Dr. Michael Corcoran Work Phone: [facility] 01-04-2023 09:50-0400 Heart rate 68 /min Dr. Michael Corcoran Work Phone: [facility] 01-04-2023 09:50-0400 Respiratory rate 16 /min Dr. Michael Corcoran Work Phone: [facility] 01-04-2023 09:50-0400 SaO2% (BldA) [Mass fraction] 97 % Dr. Michael Corcoran Work Phone: [facility] 01-04-2023 09:50-0400 Systolic blood pressure 132 mm[Hg] Dr. Michael Corcoran Work Phone: [facility] 12-09-2022 16:49-0400 Body temperature 96.9 [degF] Dr. Michael Corcoran Work Phone: [facility] 12-09-2022 16:49-0400 Diastolic blood pressure 59 mm[Hg] Dr. Michael Corcoran Work Phone: [facility] 12-09-2022 16:49-0400 Heart rate 60 /min Dr. Michael Corcoran Work Phone: [facility] 12-09-2022 16:49-0400 Respiratory rate 16 /min Dr. Michael Corcoran Work Phone: [facility] 12-09-2022 16:49-0400 SaO2% (BldA) [Mass fraction] 97 % Dr. Michael Corcoran Work Phone: [facility] 12-09-2022 16:49-0400 Systolic blood pressure 135 mm[Hg] Dr. Michael Corcoran Work Phone: [facility] 12-09-2022 13:09-0400 Body height 154.[address] Michael Corcoran Work Phone: [facility] 12-09-2022 13:09-0400 Body mass index (BMI) [Ratio] 36.5 kg/m2 Dr. Michael Corcoran Work Phone: [facility] 12-09-2022 13:09-0400 Body temperature 98.6 [degF] Dr. Michael Corcoran Work Phone: [facility] 12-09-2022 13:09-0400 Body weight 87.[address] Michael Corcoran Work Phone: [facility] 12-09-2022 13:09-0400 Diastolic blood pressure 78 mm[Hg] Dr. Michael Corcoran Work Phone: [facility] 12-09-2022 13:09-0400 Heart rate 63 /min Dr. Michael Corcoran Work Phone: [facility] 12-09-2022 13:09-0400 Respiratory rate 18 /min Dr. Michael Corcoran Work Phone: [facility] 12-09-2022 13:09-0400 SaO2% (BldA) [Mass fraction] 98 % Dr. Michael Corcoran Work Phone: [facility] 12-09-2022 13:09-0400 Systolic blood pressure 150 mm[Hg] Dr. Michael Corcoran Work Phone: [facility] 11-18-2022 12:40-0400 Body mass index (BMI) [Ratio] 36.3 kg/m2 Dr. Michael Corcoran Work Phone: [facility] 11-18-2022 12:40-0400 Body temperature 98.3 [degF] Dr. Michael Corcoran Work Phone: [facility] 11-18-2022 12:40-0400 Body weight 87.[address] Michael Corcoran Work Phone: [facility] 11-18-2022 12:40-0400 Diastolic blood pressure 74 mm[Hg] Dr. Michael Corcoran Work Phone: [facility] 11-18-2022 12:40-0400 Heart rate 66 /min Dr. Michael Corcoran Work Phone: [facility] 11-18-2022 12:40-0400 Respiratory rate 16 /min Dr. Michael Corcoran Work Phone: [facility] 11-18-2022 12:40-0400 SaO2% (BldA) [Mass fraction] 98 % Dr. Michael Corcoran Work Phone: [facility] 11-18-2022 12:40-0400 Systolic blood pressure 146 mm[Hg] Dr. Michael Corcoran Work Phone: [facility] 11-02-2022 11:02-0400 Diastolic blood pressure 67 mm[Hg] Dr. Michael Corcoran Work Phone: [facility] 11-02-2022 11:02-0400 Systolic blood pressure 112 mm[Hg] Dr. Michael Corcoran Work Phone: [facility] 10-29-2022 10:10-0400 Body height 154.[address] Michael Corcoran Work Phone: [facility] 10-29-2022 10:10-0400 Body mass index (BMI) [Ratio] 36.2 kg/m2 Dr. Michael Corcoran Work Phone: [facility] 10-29-2022 10:10-0400 Body temperature 97.7 [degF] Dr. Michael Corcoran Work Phone: [facility] 10-29-2022 10:10-0400 Body weight 87.[address] Michael Corcoran Work Phone: [facility] 10-29-2022 10:10-0400 Diastolic blood pressure 67 mm[Hg] Dr. Michael Corcoran Work Phone: [facility] 10-29-2022 10:10-0400 Heart rate 68 /min Dr. Michael Corcoran Work Phone: [facility] 10-29-2022 10:10-0400 Respiratory rate 14 /min Dr. Michael Corcoran Work Phone: [facility] 10-29-2022 10:10-0400 SaO2% (BldA) [Mass fraction] 96 % Dr. Michael Corcoran Work Phone: [facility] 10-29-2022 10:10-0400 Systolic blood pressure 112 mm[Hg] Dr. Michael Corcoran Work Phone: [facility] 10-28-2022 16:56-0400 Body temperature 96.7 [degF] Dr. Michael Corcoran Work Phone: [facility] 10-28-2022 16:56-0400 Diastolic blood pressure 62 mm[Hg] Dr. Michael Corcoran Work Phone: [facility] 10-28-2022 16:56-0400 Heart rate 54 /min Dr. Michael Corcoran Work Phone: [facility] 10-28-2022 16:56-0400 Respiratory rate 16 /min Dr. Michael Corcoran Work Phone: [facility] 10-28-2022 16:56-0400 SaO2% (BldA) [Mass fraction] 96 % Dr. Michael Corcoran Work Phone: [facility] 10-28-2022 16:56-0400 Systolic blood pressure 133 mm[Hg] Dr. Michael Corcoran Work Phone: [facility] 10-28-2022 13:42-0400 Body mass index (BMI) [Ratio] 35.9 kg/m2 Dr. Michael Corcoran Work Phone: [facility] 10-28-2022 13:42-0400 Body temperature 97 [degF] Dr. Michael Corcoran Work Phone: [facility] 10-28-2022 13:42-0400 Body weight 86.[address] Michael Corcoran Work Phone: [facility] 10-28-2022 13:42-0400 Diastolic blood pressure 68 mm[Hg] Dr. Michael Corcoran Work Phone: [facility] 10-28-2022 13:42-0400 Heart rate 60 /min Dr. Michael Corcoran Work Phone: [facility] 10-28-2022 13:42-0400 Respiratory rate 16 /min Dr. Michael Corcoran Work Phone: [facility] 10-28-2022 13:42-0400 SaO2% (BldA) [Mass fraction] 96 % Dr. Michael Corcoran Work Phone: [facility] 10-28-2022 13:42-0400 Systolic blood pressure 143 mm[Hg] Dr. Michael Corcoran Work Phone: [facility] 10-07-2022 09:58-0400 Body mass index (BMI) [Ratio] 35.3 kg/m2 Dr. Michael Corcoran Work Phone: [facility] 10-07-2022 09:52-0400 Body mass index (BMI) [Ratio] 35.3 kg/m2 Dr. Michael Corcoran Work Phone: [facility] 10-07-2022 09:52-0400 Body temperature 97.5 [degF] Dr. Michael Corcoran Work Phone: [facility] 10-07-2022 09:52-0400 Body weight 84.[address] Michael Corcoran Work Phone: [facility] 10-07-2022 09:52-0400 Diastolic blood pressure 78 mm[Hg] Dr. Michael Corcoran Work Phone: [facility] 10-07-2022 09:52-0400 Heart rate 67 /min Dr. Michael Corcoran Work Phone: [facility] 10-07-2022 09:52-0400 Respiratory rate 17 /min Dr. Michael Corcoran Work Phone: [facility] 10-07-2022 09:52-0400 SaO2% (BldA) [Mass fraction] 97 % Dr. Michael Corcoran Work Phone: [facility] 10-07-2022 09:52-0400 Systolic blood pressure 157 mm[Hg] Dr. Michael Corcoran Work Phone: [facility] 09-16-2022 09:33-0400 Body mass index (BMI) [Ratio] 35.4 kg/m2 Dr. Michael Corcoran Work Phone: [facility] 09-16-2022 09:33-0400 Body temperature 97.5 [degF] Dr. Michael Corcoran Work Phone: [facility] 09-16-2022 09:33-0400 Body weight 84.[address] Michael Corcoran Work Phone: [facility] 09-16-2022 09:33-0400 Diastolic blood pressure 75 mm[Hg] Dr. Michael Corcoran Work Phone: [facility] 09-16-2022 09:33-0400 Heart rate 65 /min Dr. Michael Corcoran Work Phone: [facility] 09-16-2022 09:33-0400 Respiratory rate 16 /min Dr. Michael Corcroan Work Phone: [facility] 09-16-2022 09:33-0400 SaO2% (BldA) [Mass fraction] 97 % Dr. Michael Corcoran Work Phone: [facility] 09-16-2022 09:33-0400 Systolic blood pressure 143 mm[Hg] Dr. Michael Corcoran Work Phone: [facility] 08-26-2022 09:36-0400 Body mass index (BMI) [Ratio] 34.9 kg/m2 Dr. Michael Corcoran Work Phone: [facility] 08-26-2022 09:36-0400 Body temperature 98.3 [degF] Dr. Michael Corcoran Work Phone: [facility] 08-26-2022 09:36-0400 Body weight 83.[address] Michael Corcoran Work Phone: [facility] 08-26-2022 09:36-0400 Diastolic blood pressure 80 mm[Hg] Dr. Michael Corcoran Work Phone: [facility] 08-26-2022 09:36-0400 Heart rate 67 /min Dr. Michael Corcoran Work Phone: [facility] 08-26-2022 09:36-0400 Respiratory rate 16 /min Dr. Michael Corcoran Work Phone: [facility] 08-26-2022 09:36-0400 SaO2% (BldA) [Mass fraction] 98 % Dr. Michael Corcoran Work Phone: [facility] 08-26-2022 09:36-0400 Systolic blood pressure 130 mm[Hg] Dr. Michael Corcoran Work Phone: [facility] 08-05-2022 09:56-0400 Body mass index (BMI) [Ratio] 32.3 kg/m2 Dr. Michael Corcoran Work Phone: [facility] 08-05-2022 09:56-0400 Body temperature 98.3 [degF] Dr. Michael Corcoran Work Phone: [facility] 08-05-2022 09:56-0400 Body weight 82.[address] Michael Corcoran Work Phone: [facility] 08-05-2022 09:56-0400 Diastolic blood pressure 77 mm[Hg] Dr. Michael Corcoran Work Phone: [facility] 08-05-2022 09:56-0400 Heart rate 63 /min Dr. Michael Corcoran Work Phone: [facility] 08-05-2022 09:56-0400 Respiratory rate 16 /min Dr. Michael Corcoran Work Phone: [facility] 08-05-2022 09:56-0400 SaO2% (BldA) [Mass fraction] 96 % Dr. Michael Corcoran Work Phone: [facility] 08-05-2022 09:56-0400 Systolic blood pressure 134 mm[Hg] Dr. Michael Corcoran Work Phone: [facility] 07-15-2022 09:27-0400 Body mass index (BMI) [Ratio] 32.1 kg/m2 Dr. Michael Corcoran Work Phone: [facility] 07-15-2022 09:27-0400 Body temperature 97.6 [degF] Dr. Michael Corcoran Work Phone: [facility] 07-15-2022 09:27-0400 Body weight 82.[address] Michael Corcoran Work Phone: [facility] 07-15-2022 09:27-0400 Diastolic blood pressure 78 mm[Hg] Dr. Michael Corcoran Work Phone: [facility] 07-15-2022 09:27-0400 Heart rate 90 /min Dr. Michael Corcoran Work Phone: [facility] 07-15-2022 09:27-0400 Respiratory rate 16 /min Dr. Michael Corcoran Work Phone: [facility] 07-15-2022 09:27-0400 SaO2% (BldA) [Mass fraction] 95 % Dr. Michael Corcoran Work Phone: [facility] 07-15-2022 09:27-0400 Systolic blood pressure 126 mm[Hg] Dr. Michael Corcoran Work Phone: [facility] 06-10-2022 11:28-0500 Body temperature 97 [degF] Dr. Michael Corcoran Work Phone: [facility] 06-10-2022 11:28-0500 Diastolic blood pressure 56 mm[Hg] Dr. Michael Corcoran Work Phone: [facility] 06-10-2022 11:28-0500 Heart rate 64 /min Dr. Michael Corcoran Work Phone: [facility] 06-10-2022 11:28-0500 Systolic blood pressure 122 mm[Hg] Dr. Michael Corcoran Work Phone: [facility] 06-10-2022 09:17-0500 Body height 160.[address] Michael Corcoran Work Phone: [facility] 06-10-2022 09:17-0500 Respiratory rate 16 /min Dr. Michael Corcoran Work Phone: [facility] 06-10-2022 09:17-0500 SaO2% (BldA) [Mass fraction] 98 % Dr. Michael Corcoran Work Phone: [facility] 06-03-2022 08:58-0500 Body mass index (BMI) [Ratio] 31.7 kg/m2 Dr. Michael Corcoran Work Phone: [facility] 06-03-2022 08:58-0500 Body weight 81.[address] Michael Corcoran Work Phone: [facility] 06-03-2022 08:16-0500 Body mass index (BMI) [Ratio] 31.7 kg/m2 Dr. Michael Corcoran Work Phone: [facility] 06-03-2022 08:16-0500 Body temperature 98.2 [degF] Dr. Michael Corcoran Work Phone: [facility] 06-03-2022 08:16-0500 Body weight 81.[address] Michael Corcoran Work Phone: [facility] 06-03-2022 08:16-0500 Diastolic blood pressure 77 mm[Hg] Dr. Michael Corcoran Work Phone: [facility] 06-03-2022 08:16-0500 Heart rate 88 /min Dr. Michael Corcoran Work Phone: [facility] 06-03-2022 08:16-0500 Respiratory rate 17 /min Dr. Michael Corcoran Work Phone: [facility] 06-03-2022 08:16-0500 SaO2% (BldA) [Mass fraction] 97 % Dr. Michael Corcoran Work Phone: [facility] 06-03-2022 08:16-0500 Systolic blood pressure 137 mm[Hg] Dr. Michael Corcoran Work Phone: [facility] 05-13-2022 09:46-0500 Body mass index (BMI) [Ratio] 31.8 kg/m2 Dr. Michael Corcoran Work Phone: [facility] 05-13-2022 09:46-0500 Body temperature 98.2 [degF] Dr. Michael Corcoran Work Phone: [facility] 05-13-2022 09:46-0500 Body weight 81.[address] Michael Corcoran Work Phone: [facility] 05-13-2022 09:46-0500 Diastolic blood pressure 67 mm[Hg] Dr. Michael Corcoran Work Phone: [facility] 05-13-2022 09:46-0500 Heart rate 77 /min Dr. Michael Corcoran Work Phone: [facility] 05-13-2022 09:46-0500 Respiratory rate 17 /min Dr. Michael Corcoran Work Phone: [facility] 05-13-2022 09:46-0500 SaO2% (BldA) [Mass fraction] 97 % Dr. Michael Corcoran Work Phone: [facility] 05-13-2022 09:46-0500 Systolic blood pressure 105 mm[Hg] Dr. Michael Corcoran Work Phone: [facility] 04-29-2022 15:23-0500 Body mass index (BMI) [Ratio] 31.8 kg/m2 Dr. Michael Corcoran Work Phone: [facility] 04-29-2022 15:23-0500 Body temperature 98.2 [degF] Dr. Michael Corcoran Work Phone: [facility] 04-29-2022 15:23-0500 Body weight 81.[address] Michael Corcoran Work Phone: [facility] 04-29-2022 15:23-0500 Diastolic blood pressure 78 mm[Hg] Dr. Michael Corcoran Work Phone: [facility] 04-29-2022 15:23-0500 Heart rate 80 /min Dr. Michael Corcoran Work Phone: [facility] 04-29-2022 15:23-0500 Respiratory rate 16 /min Dr. Michael Corcoran Work Phone: [facility] 04-29-2022 15:23-0500 SaO2% (BldA) [Mass fraction] 97 % Dr. Michael Corcoran Work Phone: [facility] 04-29-2022 15:23-0500 Systolic blood pressure 121 mm[Hg] Dr. Michael Corcoran Work Phone: [facility] 04-24-2022 11:13-0500 Body temperature 98 [degF] Dr. Michael Corcoran Work Phone: [facility] 04-24-2022 11:13-0500 Diastolic blood pressure 48 mm[Hg] Dr. Michael Corcoran Work Phone: [facility] 04-24-2022 11:13-0500 Heart rate 62 /min Dr. Michael Corcoran Work Phone: [facility] 04-24-2022 11:13-0500 Respiratory rate 18 /min Dr. Michael Corcoran Work Phone: [facility] 04-24-2022 11:13-0500 SaO2% (BldA) [Mass fraction] 96 % Dr. Michael Corcoran Work Phone: [facility] 04-24-2022 11:13-0500 Systolic blood pressure 112 mm[Hg] Dr. Michael Corcoran Work Phone: [facility] 04-23-2022 21:46-0500 Inhaled oxygen flow rate 2 L/min Dr. Michael Corcoran Work Phone: [facility] 04-23-2022 15:35-0500 Body height 160.[address] Michael Corcoran Work Phone: [facility] Work Phone: 04-23-2022 15:35-0500 Body mass index (BMI) [Ratio] 32.2 kg/m2 Dr. Michael Corcoran Work Phone: [facility] 04-23-2022 15:35-0500 Body weight 82.[address] Michael Corcoran Work Phone: [facility] 04-21-2022 09:59-0500 Body weight 82.[address] Michael Corcoran Work Phone: [facility] Work Phone: 04-01-2022 14:54-0500 Body height 160.[address] Michael Corcoran Work Phone: [facility] Work Phone: 04-01-2022 14:54-0500 Body weight 82.[address] Michael Corcoran Work Phone: [facility] Work Phone: 04-01-2022 11:25-0500 Body mass index (BMI) [Ratio] 32.2 kg/m2 Dr. Michael Corcoran Work Phone: [facility] 04-01-2022 11:25-0500 Body temperature 98.2 [degF] Dr. Michael Corcoran Work Phone: [facility] 04-01-2022 11:25-0500 Body weight 82.[address] Michael Corcoran Work Phone: [facility] 04-01-2022 11:25-0500 Diastolic blood pressure 78 mm[Hg] Dr. Michael Corcoran Work Phone: [facility] 04-01-2022 11:25-0500 Heart rate 82 /min Dr. Michael Corcoran Work Phone: [facility] 04-01-2022 11:25-0500 Respiratory rate 16 /min Dr. Michael Corcoran Work Phone: [facility] 04-01-2022 11:25-0500 SaO2% (BldA) [Mass fraction] 96 % Dr. Michael Corcoran Work Phone: [facility] 04-01-2022 11:25-0500 Systolic blood pressure 120 mm[Hg] Dr. Michael Corcoran Work Phone: [facility] 03-26-2022 02:10-0500 Diastolic blood pressure 63 mm[Hg] Dr. Michael Corcoran Work Phone: [facility] 03-26-2022 02:10-0500 Heart rate 77 /min Dr. Michael Corcoran Work Phone: [facility] 03-26-2022 02:10-0500 Respiratory rate 18 /min Dr. Michael Corcoran Work Phone: [facility] 03-26-2022 02:10-0500 SaO2% (BldA) [Mass fraction] 97 % Dr. Michael Corcoran Work Phone: [facility] 03-26-2022 02:10-0500 Systolic blood pressure 137 mm[Hg] Dr. Michael Corcoran Work Phone: [facility] 03-25-2022 23:27-0500 Body height 160.[address] Michael Corcoran Work Phone: [facility] Work Phone: 03-25-2022 23:27-0500 Body mass index (BMI) [Ratio] 32.5 kg/m2 Dr. Michael Corcoran Work Phone: [facility] 03-25-2022 23:27-0500 Body temperature 98 [degF] Dr. Michael Corcoran Work Phone: [facility] 03-25-2022 23:27-0500 Body weight 83.[address] Michael Corcoran Work Phone: [facility] 03-18-2022 09:49-0500 Body mass index (BMI) [Ratio] 32.9 kg/m2 Dr. Michael Corcoran Work Phone: [facility] 03-18-2022 09:49-0500 Body weight 84.[address] Michael Corcoran Work Phone: [facility] 03-18-2022 09:49-0500 Diastolic blood pressure 70 mm[Hg] Dr. Michael Corcoran Work Phone: [facility] 03-18-2022 09:49-0500 Heart rate 86 /min Dr. Michael Corcoran Work Phone: [facility] 03-18-2022 09:49-0500 Respiratory rate 18 /min Dr. Michael Corcoran Work Phone: [facility] 03-18-2022 09:49-0500 SaO2% (BldA) [Mass fraction] 98 % Dr. Michael Corcoran Work Phone: [facility] 03-18-2022 09:49-0500 Systolic blood pressure 106 mm[Hg] Dr. Michael Corcoran Work Phone: [facility] 03-17-2022 12:19-0500 Body temperature 96.8 [degF] Dr. Michael Corcoran Work Phone: [facility] Work Phone: 03-17-2022 12:19-0500 Diastolic blood pressure 71 mm[Hg] Dr. Michael Corcoran Work Phone: [facility] Work Phone: 03-17-2022 12:19-0500 Heart rate 75 /min Dr. Michael Corcoran Work Phone: [facility] Work Phone: 03-17-2022 12:19-0500 Systolic blood pressure 133 mm[Hg] Dr. Michael Corcoran Work Phone: [facility] Work Phone: 03-17-2022 10:21-0500 Body weight 84.[address] Michael Corcoran Work Phone: [facility] Work Phone: 03-17-2022 09:08-0500 Body mass index (BMI) [Ratio] 33 kg/m2 Dr. Michael Corcoran Work Phone: [facility] Work Phone: 03-17-2022 08:35-0500 Body mass index (BMI) [Ratio] 33 kg/m2 Dr. Michael Corcoran Work Phone: [facility] 03-17-2022 08:35-0500 Body temperature 98.5 [degF] Dr. Michael Corcoran Work Phone: [facility] 03-17-2022 08:35-0500 Body weight 84.[address] Michael Corcoran Work Phone: [facility] 03-17-2022 08:35-0500 Diastolic blood pressure 70 mm[Hg] Dr. Michael Corcoran Work Phone: [facility] 03-17-2022 08:35-0500 Heart rate 78 /min Dr. Michael Corcoran Work Phone: [facility] 03-17-2022 08:35-0500 Respiratory rate 16 /min Dr. Michael Corcoran Work Phone: [facility] 03-17-2022 08:35-0500 SaO2% (BldA) [Mass fraction] 97 % Dr. Michael Corcoran Work Phone: [facility] 03-17-2022 08:35-0500 Systolic blood pressure 114 mm[Hg] Dr. Michael Corcoran Work Phone: [facility] 02-24-2022 13:16-0500 Respiratory rate 16 /min Dr. Michael Corcoran Work Phone: [facility] Work Phone: 02-24-2022 08:16-0500 Body mass index (BMI) [Ratio] 34.2 kg/m2 Dr. Michael Corcoran Work Phone: [facility] 02-24-2022 08:16-0500 Body temperature 98.2 [degF] Dr. Michael Corcoran Work Phone: [facility] 02-24-2022 08:16-0500 Body weight 87.[address] Michael Corcoran Work Phone: [facility] 02-24-2022 08:16-0500 Diastolic blood pressure 79 mm[Hg] Dr. Michael Corcoran Work Phone: [facility] 02-24-2022 08:16-0500 Heart rate 76 /min Dr. Michael Corcoran Work Phone: [facility] 02-24-2022 08:16-0500 Respiratory rate 16 /min Dr. Michael Corcoran Work Phone: [facility] 02-24-2022 08:16-0500 SaO2% (BldA) [Mass fraction] 98 % Dr. Michael Corcoran Work Phone: [facility] 02-24-2022 08:16-0500 Systolic blood pressure 124 mm[Hg] Dr. Michael Corcoran Work Phone: [facility] 02-12-2022 16:53-0400 Body temperature 98 [degF] Dr. Michael Corcoran Work Phone: [facility] Work Phone: 02-12-2022 16:53-0400 Diastolic blood pressure 56 mm[Hg] Dr. Michael Corcoran Work Phone: [facility] Work Phone: 02-12-2022 16:53-0400 Heart rate 83 /min Dr. Michael Corcoran Work Phone: [facility] Work Phone: 02-12-2022 16:53-0400 Respiratory rate 16 /min Dr. Michael Corcoran Work Phone: [facility] Work Phone: 02-12-2022 16:53-0400 SaO2% (BldA) [Mass fraction] 98 % Dr. Michael Corcoran Work Phone: [facility] Work Phone: 02-12-2022 16:53-0400 Systolic blood pressure 130 mm[Hg] Dr. Michael Corcoran Work Phone: [facility] Work Phone: 02-12-2022 13:47-0400 Body height 160.[address] Michael Corcoran Work Phone: [facility] Work Phone: 02-12-2022 13:47-0400 Body mass index (BMI) [Ratio] 33.2 kg/m2 Dr. Michael Corcoran Work Phone: [facility] Work Phone: 02-12-2022 13:47-0400 Body weight 85.[address] Michael Corcoran Work Phone: [facility] Work Phone: 02-04-2022 15:55-0400 Body temperature 98.2 [degF] Dr. Michael Corcoran Work Phone: [facility] Work Phone: 02-04-2022 15:55-0400 Diastolic blood pressure 68 mm[Hg] Dr. Michael Corcoran Work Phone: [facility] Work Phone: 02-04-2022 15:55-0400 Heart rate 103 /min Dr. Michael Corcoran Work Phone: [facility] Work Phone: 02-04-2022 15:55-0400 Respiratory rate 16 /min Dr. Michael Corcoran Work Phone: [facility] Work Phone: 02-04-2022 15:55-0400 SaO2% (BldA) [Mass fraction] 98 % Dr. Michael Corcoran Work Phone: [facility] Work Phone: 02-04-2022 15:55-0400 Systolic blood pressure 129 mm[Hg] Dr. Michael Corcoran Work Phone: [facility] Work Phone: 02-03-2022 09:24-0400 Body mass index (BMI) [Ratio] 34.3 kg/m2 Dr. Michael Corcoran Work Phone: [facility] Work Phone: 02-03-2022 09:24-0400 Body weight 88.[address] Michael Corcoran Work Phone: [facility] Work Phone: 02-03-2022 08:22-0400 Body mass index (BMI) [Ratio] 34.3 kg/m2 Dr. Michael Corcoran Work Phone: [facility] Work Phone: 02-03-2022 08:22-0400 Body temperature 98.2 [degF] Dr. Michael Corcoran Work Phone: [facility] Work Phone: 02-03-2022 08:22-0400 Body weight 88.[address] Michael Corcoran Work Phone: [facility] Work Phone: 02-03-2022 08:22-0400 Diastolic blood pressure 85 mm[Hg] Dr. Michael Corcoran Work Phone: [facility] Work Phone: 02-03-2022 08:22-0400 Heart rate 72 /min Dr. Michael Corcoran Work Phone: [facility] Work Phone: 02-03-2022 08:22-0400 Respiratory rate 16 /min Dr. Michael Corcoran Work Phone: [facility] Work Phone: 02-03-2022 08:22-0400 SaO2% (BldA) [Mass fraction] 96 % Dr. Michael Corcoran Work Phone: [facility] Work Phone: 02-03-2022 08:22-0400 Systolic blood pressure 137 mm[Hg] Dr. Michael Corcoran Work Phone: [facility] Work Phone: 01-20-2022 17:43-0400 Body height 160.[address] Michael Corcoran Work Phone: [facility] Work Phone: 01-20-2022 17:43-0400 Body mass index (BMI) [Ratio] 34.9 kg/m2 Dr. Michael Corcoran Work Phone: [facility] Work Phone: 01-20-2022 17:43-0400 Body temperature 96.3 [degF] Dr. Michael Corcoran Work Phone: [facility] Work Phone: 01-20-2022 17:43-0400 Body weight 89.[address] Michael Corcoran Work Phone: [facility] Work Phone: 01-20-2022 17:43-0400 Diastolic blood pressure 70 mm[Hg] Dr. Michael Corcoran Work Phone: [facility] Work Phone: 01-20-2022 17:43-0400 Heart rate 100 /min Dr. Michael Corcoran Work Phone: [facility] Work Phone: 01-20-2022 17:43-0400 Respiratory rate 18 /min Dr. Michael Corcoran Work Phone: [facility] Work Phone: 01-20-2022 17:43-0400 SaO2% (BldA) [Mass fraction] 96 % Dr. Michael Corcoran Work Phone: [facility] Work Phone: 01-20-2022 17:43-0400 Systolic blood pressure 88 mm[Hg] Dr. Michael Corcoran Work Phone: [facility] Work Phone: 01-18-2022 03:41-0400 Body temperature 96.2 [degF] Dr. Michael Corcoran Work Phone: [facility] Work Phone: 01-18-2022 03:41-0400 Diastolic blood pressure 74 mm[Hg] Dr. Michael Corcroan Work Phone: [facility] Work Phone: 01-18-2022 03:41-0400 Heart rate 72 /min Dr. Michael Corcoran Work Phone: [facility] Work Phone: 01-18-2022 03:41-0400 Respiratory rate 18 /min Dr. Michael Corcoran Work Phone: [facility] Work Phone: 01-18-2022 03:41-0400 SaO2% (BldA) [Mass fraction] 96 % Dr. Michael Corcoran Work Phone: [facility] Work Phone: 01-18-2022 03:41-0400 Systolic blood pressure 160 mm[Hg] Dr. Michael Corcoran Work Phone: [facility] Work Phone: 01-18-2022 02:56-0400 Body height 160.[address] Michael Corcoran Work Phone: [facility] Work Phone: 01-18-2022 02:56-0400 Body mass index (BMI) [Ratio] 34.4 kg/m2 Dr. Michael Corcoran Work Phone: [facility] Work Phone: 01-18-2022 02:56-0400 Body weight 88.[address] Michael Corcoran Work Phone: [facility] Work Phone: 01-13-2022 12:55-0400 Body temperature 97.4 [degF] Dr. Michael Corcoran Work Phone: [facility] Work Phone: 01-13-2022 12:55-0400 Diastolic blood pressure 63 mm[Hg] Dr. Michael Corcoran Work Phone: [facility] Work Phone: 01-13-2022 12:55-0400 Heart rate 82 /min Dr. Michael Corcoran Work Phone: [facility] Work Phone: 01-13-2022 12:55-0400 Respiratory rate 14 /min Dr. Michael Corcoran Work Phone: [facility] Work Phone: 01-13-2022 12:55-0400 SaO2% (BldA) [Mass fraction] 98 % Dr. Michael Corcoran Work Phone: [facility] Work Phone: 01-13-2022 12:55-0400 Systolic blood pressure 139 mm[Hg] Dr. Michael Corcoran Work Phone: [facility] Work Phone: 01-13-2022 08:57-0400 Body mass index (BMI) [Ratio] 35 kg/m2 Dr. Michael Corcoran Work Phone: [facility] Work Phone: 01-13-2022 08:57-0400 Body weight 89.[address] Michael Corcoran Work Phone: [facility] Work Phone: 01-13-2022 08:17-0400 Body mass index (BMI) [Ratio] 35 kg/m2 Dr. Michael Corcoran Work Phone: [facility] Work Phone: 01-13-2022 08:17-0400 Body temperature 97.6 [degF] Dr. Michael Corcoran Work Phone: [facility] Work Phone: 01-13-2022 08:17-0400 Body weight 89.[address] Michael Corcoran Work Phone: [facility] Work Phone: 01-13-2022 08:17-0400 Diastolic blood pressure 79 mm[Hg] Dr. Michael Corcoran Work Phone: [facility] Work Phone: 01-13-2022 08:17-0400 Heart rate 73 /min Dr. Michael Corcoran Work Phone: [facility] Work Phone: 01-13-2022 08:17-0400 Respiratory rate 18 /min Dr. Michael Corcoran Work Phone: [facility] Work Phone: 01-13-2022 08:17-0400 SaO2% (BldA) [Mass fraction] 97 % Dr. Michael Corcoran Work Phone: [facility] Work Phone: 01-13-2022 08:17-0400 Systolic blood pressure 147 mm[Hg] Dr. Michael Corcoran Work Phone: [facility] Work Phone: 01-06-2022 10:33-0400 Body mass index (BMI) [Ratio] 34.5 kg/m2 Dr. Michael Corcoran Work Phone: [facility] Work Phone: 01-06-2022 10:33-0400 Body temperature 97.9 [degF] Dr. Michael Corcoran Work Phone: [facility] Work Phone: 01-06-2022 10:33-0400 Body weight 88.[address] Michael Corcoran Work Phone: [facility] Work Phone: 01-06-2022 10:33-0400 Diastolic blood pressure 89 mm[Hg] Dr. Michael Corcoran Work Phone: [facility] Work Phone: 01-06-2022 10:33-0400 Heart rate 68 /min Dr. Michael Corcoran Work Phone: [facility] Work Phone: 01-06-2022 10:33-0400 Respiratory rate 16 /min Dr. Michael Corcoran Work Phone: [facility] Work Phone: 01-06-2022 10:33-0400 SaO2% (BldA) [Mass fraction] 95 % Dr. Michael Corcoran Work Phone: [facility] Work Phone: 01-06-2022 10:33-0400 Systolic blood pressure 136 mm[Hg] Dr. Michael Corcoran Work Phone: [facility] Work Phone: 12-23-2021 08:36-0400 Body mass index (BMI) [Ratio] 35.1 kg/m2 Dr. Michael Corcoran Work Phone: [facility] Work Phone: 12-23-2021 08:36-0400 Body temperature 98.2 [degF] Dr. Michael Corcoran Work Phone: [facility] Work Phone: 12-23-2021 08:36-0400 Body weight 89.[address] Michael Corcoran Work Phone: [facility] Work Phone: 12-23-2021 08:36-0400 Diastolic blood pressure 78 mm[Hg] Dr. Michael Corcoran Work Phone: [facility] Work Phone: 12-23-2021 08:36-0400 Heart rate 70 /min Dr. Michael Corcoran Work Phone: [facility] Work Phone: 12-23-2021 08:36-0400 Respiratory rate 15 /min Dr. Michael Corcoran Work Phone: [facility] Work Phone: 12-23-2021 08:36-0400 SaO2% (BldA) [Mass fraction] 96 % Dr. Michael Corcoran Work Phone: [facility] Work Phone: 12-23-2021 08:36-0400 Systolic blood pressure 132 mm[Hg] Dr. Michael Corcoran Work Phone: [facility] Work Phone: 12-16-2021 10:35-0400 Body mass index (BMI) [Ratio] 35.1 kg/m2 Dr. Michael Corcoran Work Phone: [facility] Work Phone: 12-16-2021 10:35-0400 Body temperature 98.1 [degF] Dr. Michael Corcoran Work Phone: [facility] Work Phone: 12-16-2021 10:35-0400 Body weight 89.[address] Michael Corcoran Work Phone: [facility] Work Phone: 12-16-2021 10:35-0400 Diastolic blood pressure 76 mm[Hg] Dr. Michael Corcoran Work Phone: [facility] Work Phone: 12-16-2021 10:35-0400 Heart rate 71 /min Dr. Michael Corcoran Work Phone: [facility] Work Phone: 12-16-2021 10:35-0400 Respiratory rate 16 /min Dr. Michael Corcoran Work Phone: [facility] Work Phone: 12-16-2021 10:35-0400 SaO2% (BldA) [Mass fraction] 97 % Dr. Michael Corcoran Work Phone: [facility] Work Phone: 12-16-2021 10:35-0400 Systolic blood pressure 117 mm[Hg] Dr. Michael Corcoran Work Phone: [facility] Work Phone: 12-06-2021 06:36-0400 Diastolic blood pressure 76 mm[Hg] Dr. Michael Corcoran Work Phone: [facility] Work Phone: 12-06-2021 06:36-0400 Heart rate 69 /min Dr. Michael Corcoran Work Phone: [facility] Work Phone: 12-06-2021 06:36-0400 Respiratory rate 18 /min Dr. Michael Corcoran Work Phone: [facility] Work Phone: 12-06-2021 06:36-0400 SaO2% (BldA) [Mass fraction] 96 % Dr. Michael Corcoran Work Phone: [facility] Work Phone: 12-06-2021 06:36-0400 Systolic blood pressure 159 mm[Hg] Dr. Michael Corcoran Work Phone: [facility] Work Phone: 12-06-2021 04:18-0400 Body height 160.[address] Michael Corcoran Work Phone: [facility] Work Phone: 12-06-2021 04:18-0400 Body mass index (BMI) [Ratio] 36.4 kg/m2 Dr. Michael Corcoran Work Phone: [facility] Work Phone: 12-06-2021 04:18-0400 Body temperature 98.8 [degF] Dr. Michael Corcoran Work Phone: [facility] Work Phone: 12-06-2021 04:18-0400 Body weight 93.[address] Michael Corcoran Work Phone: [facility] Work Phone: 12-02-2021 14:20-0400 Body temperature 98 [degF] Dr. Michael Corcoran Work Phone: [facility] Work Phone: 12-02-2021 14:20-0400 Diastolic blood pressure 56 mm[Hg] Dr. Michael Corcoran Work Phone: [facility] Work Phone: 12-02-2021 14:20-0400 Heart rate 62 /min Dr. Michael Corcoran Work Phone: [facility] Work Phone: 12-02-2021 14:20-0400 Respiratory rate 16 /min Dr. Michael Corcoran Work Phone: [facility] Work Phone: 12-02-2021 14:20-0400 SaO2% (BldA) [Mass fraction] 96 % Dr. Michael Corcoran Work Phone: [facility] Work Phone: 12-02-2021 14:20-0400 Systolic blood pressure 134 mm[Hg] Dr. Michael Corcoran Work Phone: [facility] Work Phone: 12-02-2021 08:43-0400 Body mass index (BMI) [Ratio] 35.6 kg/m2 Dr. Michael Corcoran Work Phone: [facility] Work Phone: 12-02-2021 08:43-0400 Body weight 91.[address] Michael Corcoran Work Phone: [facility] Work Phone: 12-02-2021 08:17-0400 Body mass index (BMI) [Ratio] 35.6 kg/m2 Dr. Michael Corcoran Work Phone: [facility] Work Phone: 12-02-2021 08:17-0400 Body temperature 98.3 [degF] Dr. Michael Corcoran Work Phone: [facility] Work Phone: 12-02-2021 08:17-0400 Body weight 91.[address] Michael Corcoran Work Phone: [facility] Work Phone: 12-02-2021 08:17-0400 Diastolic blood pressure 84 mm[Hg] Dr. Michael Corcoran Work Phone: [facility] Work Phone: 12-02-2021 08:17-0400 Heart rate 58 /min Dr. Michael Corcoran Work Phone: [facility] Work Phone: 12-02-2021 08:17-0400 Respiratory rate 15 /min Dr. Michael Corcoran Work Phone: [facility] Work Phone: 12-02-2021 08:17-0400 SaO2% (BldA) [Mass fraction] 98 % Dr. Michael Corcoran Work Phone: [facility] Work Phone: 12-02-2021 08:17-0400 Systolic blood pressure 148 mm[Hg] Dr. Michael Corcoran Work Phone: [facility] Work Phone: 11-26-2021 14:52-0400 Body height 160.[address] Michael Corcoran Work Phone: [facility] Work Phone: 11-26-2021 14:43-0400 Body mass index (BMI) [Ratio] 35.4 kg/m2 Dr. Michael Corcoran Work Phone: [facility] Work Phone: 11-26-2021 14:43-0400 Body temperature 98.1 [degF] Dr. Michael Corcoran Work Phone: [facility] Work Phone: 11-26-2021 14:43-0400 Body weight 90.[address] Michael Corcoran Work Phone: [facility] Work Phone: 11-26-2021 14:43-0400 Diastolic blood pressure 78 mm[Hg] Dr. Michael Corcoran Work Phone: [facility] Work Phone: 11-26-2021 14:43-0400 Heart rate 64 /min Dr. Michael Corcoran Work Phone: [facility] Work Phone: 11-26-2021 14:43-0400 Respiratory rate 15 /min Dr. Michael Corcoran Work Phone: [facility] Work Phone: 11-26-2021 14:43-0400 SaO2% (BldA) [Mass fraction] 96 % Dr. Michael Corcoran Work Phone: [facility] Work Phone: 11-26-2021 14:43-0400 Systolic blood pressure 120 mm[Hg] Dr. Michael Corcoran Work Phone: [facility] Work Phone: 11-23-2021 15:32-0400 Body mass index (BMI) [Ratio] 35.9 kg/m2 Dr. Michael Corcoran Work Phone: [facility] Work Phone: 11-23-2021 15:32-0400 Body temperature 97.7 [degF] Dr. Michael Corcoran Work Phone: [facility] Work Phone: 11-23-2021 15:32-0400 Body weight 91.[address] Michael Corcoran Work Phone: [facility] Work Phone: 11-23-2021 15:32-0400 Diastolic blood pressure 80 mm[Hg] Dr. Michael Corcoran Work Phone: [facility] Work Phone: 11-23-2021 15:32-0400 Heart rate 64 /min Dr. Michael Corcoran Work Phone: [facility] Work Phone: 11-23-2021 15:32-0400 Respiratory rate 15 /min Dr. Michael Corcoran Work Phone: [facility] Work Phone: 11-23-2021 15:32-0400 SaO2% (BldA) [Mass fraction] 98 % Dr. Michael Corcoran Work Phone: [facility] Work Phone: 11-23-2021 15:32-0400 Systolic blood pressure 152 mm[Hg] Dr. Michael Corcoran Work Phone: [facility] Work Phone: 11-20-2021 09:30-0400 Body temperature 98.2 [degF] Dr. Michael Corcoran Work Phone: [facility] Work Phone: 11-20-2021 09:30-0400 Diastolic blood pressure 59 mm[Hg] Dr. Michael Corcoran Work Phone: [facility] Work Phone: 11-20-2021 09:30-0400 Heart rate 60 /min Dr. Michael Corcoran Work Phone: [facility] Work Phone: 11-20-2021 09:30-0400 Respiratory rate 16 /min Dr. Michael Corcoran Work Phone: [facility] Work Phone: 11-20-2021 09:30-0400 SaO2% (BldA) [Mass fraction] 97 % Dr. Michael Corcoran Work Phone: [facility] Work Phone: 11-20-2021 09:30-0400 Systolic blood pressure 126 mm[Hg] Dr. Michael Corcoran Work Phone: [facility] Work Phone: 11-20-2021 06:31-0400 Body height 160.[address] Michael Corcoran Work Phone: [facility] Work Phone: 11-20-2021 06:31-0400 Body mass index (BMI) [Ratio] 35.4 kg/m2 Dr. Michael Corcoran Work Phone: [facility] Work Phone: 11-20-2021 06:31-0400 Body weight 90.[address] Michael Corcoran Work Phone: [facility] Work Phone: 11-17-2021 09:52-0400 Heart rate 61 /min Dr. Michael Corcoran Work Phone: [facility] Work Phone: 11-17-2021 09:52-0400 Respiratory rate 18 /min Dr. Michael Corcoran Work Phone: [facility] Work Phone: 11-17-2021 09:52-0400 SaO2% (BldA) [Mass fraction] 96 % Dr. Michael Corcoran Work Phone: [facility] Work Phone: 11-12-2021 13:22-0400 Body height 160.[address] Michael Corcoran Work Phone: [facility] Work Phone: 11-12-2021 13:14-0400 Body mass index (BMI) [Ratio] 35.4 kg/m2 Dr. Michael Corcoran Work Phone: [facility] Work Phone: 11-12-2021 13:14-0400 Body temperature 97.3 [degF] Dr. Michael Corcoran Work Phone: [facility] Work Phone: 11-12-2021 13:14-0400 Body weight 90.[address] Michael Corcoran Work Phone: [facility] Work Phone: 11-12-2021 13:14-0400 Diastolic blood pressure 79 mm[Hg] Dr. Michael Corcoran Work Phone: [facility] Work Phone: 11-12-2021 13:14-0400 Heart rate 97 /min Dr. Michael Corcoran Work Phone: [facility] Work Phone: 11-12-2021 13:14-0400 Respiratory rate 15 /min Dr. Michael Corcoran Work Phone: [facility] Work Phone: 11-12-2021 13:14-0400 SaO2% (BldA) [Mass fraction] 97 % Dr. Michael Corcoran Work Phone: [facility] Work Phone: 11-12-2021 13:14-0400 Systolic blood pressure 126 mm[Hg] Dr. Michael Corcoran Work Phone: [facility] Work Phone: 11-04-2021 13:08-0400 Body height 160.[address] Michael Corcoran Work Phone: [facility] Work Phone: 11-04-2021 13:01-0400 Body mass index (BMI) [Ratio] 35.3 kg/m2 Dr. Michael Corcoran Work Phone: [facility] Work Phone: 11-04-2021 13:01-0400 Body temperature 98.5 [degF] Dr. Michael Corcoran Work Phone: [facility] Work Phone: 11-04-2021 13:01-0400 Body weight 90.[address] Michael Corcoran Work Phone: [facility] Work Phone: 11-04-2021 13:01-0400 Diastolic blood pressure 82 mm[Hg] Dr. Michael Corcoran Work Phone: [facility] Work Phone: 11-04-2021 13:01-0400 Heart rate 53 /min Dr. Michael Corcoran Work Phone: [facility] Work Phone: 11-04-2021 13:01-0400 Respiratory rate 15 /min Dr. Michael Corcoran Work Phone: [facility] Work Phone: 11-04-2021 13:01-0400 SaO2% (BldA) [Mass fraction] 86 % Dr. Michael Corcoran Work Phone: [facility] Work Phone: 11-04-2021 13:01-0400 Systolic blood pressure 134 mm[Hg] Dr. Michael Corcoran Work Phone: [facility] Work Phone: 10-27-2021 08:41-0400 Body mass index (BMI) [Ratio] 35.6 kg/m2 Dr. Michael Corcoran Work Phone: [facility] Work Phone: 10-27-2021 08:41-0400 Body temperature 97.6 [degF] Dr. Michael Corcoran Work Phone: [facility] Work Phone: 10-27-2021 08:41-0400 Body weight 91.[address] Michael Corcoran Work Phone: [facility] Work Phone: 10-27-2021 08:41-0400 Diastolic blood pressure 84 mm[Hg] Dr. Michael Corcoran Work Phone: [facility] Work Phone: 10-27-2021 08:41-0400 Heart rate 68 /min Dr. Michael Corcoran Work Phone: [facility] Work Phone: 10-27-2021 08:41-0400 Respiratory rate 16 /min Dr. Michael Corcoran Work Phone: [facility] Work Phone: 10-27-2021 08:41-0400 SaO2% (BldA) [Mass fraction] 98 % Dr. Michael Corcoran Work Phone: [facility] Work Phone: 10-27-2021 08:41-0400 Systolic blood pressure 126 mm[Hg] Dr. Michael Corcoran Work Phone: [facility] Work Phone: 09-29-2021 08:43-0400 Body height 160.[address] Michael Corcoran Work Phone: [facility] Work Phone: 09-29-2021 08:43-0400 Body mass index (BMI) [Ratio] 35.6 kg/m2 Dr. Michael Corcoran Work Phone: [facility] Work Phone: 09-29-2021 08:43-0400 Body temperature 97.5 [degF] Dr. Michael Corcoran Work Phone: [facility] Work Phone: 09-29-2021 08:43-0400 Body weight 91.[address] Michael Corcoran Work Phone: [facility] Work Phone: 09-29-2021 08:43-0400 Diastolic blood pressure 100 mm[Hg] Dr. Michael Corcoran Work Phone: [facility] Work Phone: 09-29-2021 08:43-0400 Heart rate 62 /min Dr. Michael Corcoran Work Phone: [facility] Work Phone: 09-29-2021 08:43-0400 SaO2% (BldA) [Mass fraction] 97 % Dr. Michael Corcoran Work Phone: [facility] Work Phone: 09-29-2021 08:43-0400 Systolic blood pressure 172 mm[Hg] Dr. Michael Corcoran Work Phone: [facility] Work Phone: Encounters Encounter Date Encounter Type Care Provider Facility Start: 10-11-2024 ambulatory Miriam Meraz NP Facil ity:[facility] Start: 09-18-2024 End: 09-18-2024 Patient encounter procedure Miriam Meraz NP-C -[facility] Work Phone: Start: 09-18-2024 End: 09-18-[address] Michael Corcoran MD Work Phone: [facility] Work Phone: Start: 09-18-[address] Haresh Saenz MD -[facility] Start: 08-10-2024 End: 08-10-2024 Emergency department patient visit Dr. Michael Corcoran MD Work Phone: -Emergency Department Work Phone: Start: 07-24-[address] Haresh Saenz MD -[facility] Start: 07-11-2024 End: 07-11-[address] Michael Corcoran MD -[facility] Work Phone: Start: 07-11-2024 End: 07-11-[address] Michael Corcorna MD Work Phone: [facility] Work Phone: Start: 07-11-2024 End: 07-11-2024 ambulatory [facility] Facility:[facility] Start: 06-12-[address] Haresh Saenz MD -[facility] Start: 03-20-2024 End: 03-20-[address] aHresh Saenz MD -[facility] Work Phone: Start: 03-20-2024 End: 03-20-2024 ambulatory [facility] Facility:[facility] Start: 01-27-2024 End: 01-27-2024 ambulatory [facility] Start: 01-27-2024 End: 01-27-2024 ambulatory [facility] Facility:[facility] Start: 01-17-2024 End: 01-17-2024 ambulatory Haresh Shethh Facility:[facility] Start: 01-12-2024 End: 01-12-2024 ambulatory Olindaadolfokevin Beckwithnatalie Facility:[facility] Start: 11-10-2023 End: 11-10-2023 Emergency department patient visit Juanfairfaxkevin Rubioanupnatalie Facility:[facility] Start: 08-23-2023 Non-patient / Non-visit Dr. Olinda Corcoran Work Phone: [facility] Start: 08-23-2023 End: 08-23-[address] Michael Corcoran Work Phone: [facility] Work Phone: Start: 08-23-2023 End: 08-23-[address] Michael Corcoran Work Phone: [facility]-Cardiovascular Services Work Phone: Start: 08-16-[address] Felicita Corcoran Work Phone: [facility] Start: 07-29-2023 End: 07-29-[address] Michael Corcoran Work Phone: [facility] Work Phone: Start: 07-29-2023 End: 07-29-[address] Michael Corcoran Work Phone: [facility] Work Phone: Start: 07-21-2023 Non-patient / Non-visit Dr. Olinda Corcoran Work Phone: [facility] Work Phone: Start: 07-20-2023 End: 07-20-[address] Michael Corcoran Work Phone: [facility] Work Phone: Start: 07-20-2023 End: 07-20-[address] Michael Corcoran Work Phone: [facility] Work Phone: Start: 07-20-2023 End: 07-20-[address] Michael Corcoran Work Phone: [facility] Work Phone: Start: 07-15-2023 Non-patient / Non-visit Dr. Olinda Corcoran Work Phone: [facility] Start: 07-14-2023 End: 07-15-2023 Evaluation and management of inpatient Dr. Michael Corcoran Work Phone: [facility]-Medical Surgical 3 Work Phone: Start: 07-14-2023 Non-patient / Non-visit Dr. Olinda Corcoran Work Phone: [facility] Start: 07-13-2023 Non-patient / Non-visit Dr. Olinda Corcoran Work Phone: [facility] Start: 07-13-2023 End: 07-13-2023 Emergency department patient visit Dr. Michael Corcoran Work Phone: [facility]-Emergency Department Work Phone: Start: 06-21-[address] Felicita Corcoran Work Phone: [facility] Start: 06-01-2023 Non-patient / Non-visit Dr. Olinda Corcoran Work Phone: [facility] Start: 06-01-2023 End: 06-01-2023 Admission to same day surgery center Dr. Michael Corcoran Work Phone: [facility]-Endoscopy Work Phone: Start: 06-01-2023 End: 06-01-[address] Michael Corcoran Work Phone: [facility] Work Phone: Start: 05-24-[address] Felicita Corcoran Work Phone: [facility] Start: 05-09-2023 End: 05-09-[address] Michael Corcoran Work Phone: [facility] Work Phone: Start: 04-28-2023 End: 04-28-[address] Michael Corcoran Work Phone: [facility] Work Phone: Start: 03-29-2023 End: 03-29-[address] Michael Corcoran Work Phone: [facility] Work Phone: Start: 01-10-2023 End: 01-10-[address] Michael Corcoran Work Phone: [facility] Work Phone: Start: 01-10-2023 End: 01-10-[address] Michael Corcoran Work Phone: [facility]-Outpatient Breast Imaging Work Phone: Start: 01-04-2023 End: 01-04-[address] Michael Corcoran Work Phone: [facility] Work Phone: Start: 01-04-[address] Felicita Corcoran Work Phone: [facility] Start: 12-23-2022 Non-patient / Non-visit Dr. Olinda Corcoran Work Phone: [facility] Start: 12-23-2022 End: 12-23-[address] Michael Corcoran Work Phone: [facility] Work Phone: Start: 12-23-2022 End: 12-23-[address] [facility] Start: 12-09-[address] Felicita Corcoran Work Phone: [facility] Start: 12-09-2022 End: 12-09-[address] Michael Corcoran Work Phone: [facility] Work Phone: Start: 11-18-2022 End: 11-18-[address] Michael Corcoran Work Phone: [facility] Work Phone: Start: 10-29-2022 End: 10-29-[address] Michael Corcoran Work Phone: [facility] Work Phone: Start: 10-28-2022 End: 10-28-[address] Michael Corcoran Work Phone: [facility] Work Phone: Start: 10-28-[address] Felicita Corcoran Work Phone: [facility] Start: 10-21-2022 Non-patient / Non-visit Dr. Olinda Corcoran Work Phone: [facility] Work Phone: Start: 10-07-2022 End: 10-07-[address] Michael Corcoran Work Phone: [facility] Work Phone: Start: 09-16-2022 End: 09-16-[address] Michael Corcoran Work Phone: [facility] Work Phone: Start: 09-08-2022 Non-patient / Non-visit Dr. Olinda Corcoran Work Phone: [facility] Start: 09-08-2022 End: 09-08-[address] Michael Corcoran Work Phone: [facility] Work Phone: Start: 09-08-2022 End: 09-08-[address] [facility] Start: 08-26-2022 End: 08-26-[address] Michael Corcoran Work Phone: [facility] Work Phone: Start: 08-05-2022 End: 08-05-[address] Michael Corcoran Work Phone: [facility] Work Phone: Start: 07-15-2022 End: 07-15-[address] Michael Corcoran Work Phone: [facility] Work Phone: Start: 06-10-2022 Non-patient / Non-visit Dr. Olinda Corcoran Work Phone: [facility] Start: 06-10-[address] Felicita Corcoran Work Phone: [facility] Start: 06-10-2022 End: 06-10-[address] Michael Corcoran Work Phone: [facility] Work Phone: Start: 06-10-2022 End: 06-10-[address] Michael Corcoran Work Phone: [facility]-Outpatient Bone Densitometry Start: 06-03-2022 End: 06-03-[address] Michael Corcoran Work Phone: [facility] Start: 05-13-2022 End: 05-13-[address] Michael Corcoran Work Phone: [facility] Start: 05-11-2022 End: 05-11-[address] Michael Corcoran Work Phone: [facility] Start: 04-29-2022 End: 04-29-[address] Michael Corcoran Work Phone: [facility] Start: 04-26-2022 End: 04-26-[address] Michael Corcoran Work Phone: [facility] Start: 04-24-2022 Non-patient / Non-visit Dr. Olinda Corcoran Work Phone: [facility] Start: 04-23-2022 End: 04-24-2022 Evaluation and management of inpatient Dr. Michael Corcoran Work Phone: [facility] 3 Start: 04-23-2022 End: 04-24-[address] Michael Corcoran Work Phone: [facility] Work Phone: Start: 04-23-2022 Non-patient / Non-visit Dr. Olinda Corcoran Work Phone: [facility] Start: 04-09-2022 End: 04-09-[address] Michael Corcoran Work Phone: [facility] Work Phone: Start: 04-09-2022 End: 04-09-[address] Michael Corcoran Work Phone: [facility] Start: 04-01-2022 End: 04-01-[address] Michael Corcoran Work Phone: [facility] Start: 04-01-[address] Felicita Corcoran Work Phone: [facility] Start: 03-25-2022 End: 03-26-2022 Emergency department patient visit Dr. Michael Corcoran Work Phone: [facility]Emergency Department Start: 03-18-2022 End: 03-18-[address] Michael Corcoran Work Phone: [facility] Start: 03-17-2022 End: 03-17-[address] Michael Corcoran Work Phone: [facility] Start: 03-17-[address] Felicita Corcoran Work Phone: [facility] Start: 02-24-2022 End: 02-24-[address] Michael Corcoran Work Phone: [facility] Start: 02-18-2022 End: 02-18-2022 Non-patient / Non-visit Dr. Michael Corcoran Work Phone: [facility] Start: 02-18-2022 Non-patient / Non-visit Dr. Olinda Corcoran Work Phone: [facility] Start: 02-12-2022 End: 02-12-2022 Emergency department patient visit Dr. Michael Corcoran Work Phone: [facility]Emergency [facility] Start: 02-04-[address] Felicita Corcoran Work Phone: [facility] Start: 02-03-2022 End: 02-03-[address] Michael Corcoran Work Phone: [facility] Start: 01-20-2022 End: 01-20-2022 Emergency department patient visit Dr. Michael Corcoran Work Phone: [facility]Emergency Department Start: 01-18-2022 End: 01-18-2022 Emergency department patient visit Dr. Michael Corcoran Work Phone: [facility]Emer[facility] Start: 01-13-2022 End: 01-13-[address] Michael Corcoran Work Phone: [facility] Start: 01-13-[address] Felicita Corcoran Work Phone: [facility] Start: 01-06-2022 End: 01-06-[address] Michael Corcoran Work Phone: [facility] Start: 12-23-2021 End: 12-23-[address] Michael Corcoran Work Phone: [facility] Start: 12-16-2021 End: 12-16-[address] Michael Corcoran Work Phone: [facility] Start: 12-08-2021 End: 12-08-[address] Michael Corcoran Work Phone: [facility] Work Phone: Start: 12-08-2021 End: 12-08-[address] Michael Corcoran Work Phone: [facility] Start: 12-06-2021 End: 12-06-2021 Emergency department patient visit Dr. Michael Corcoran Work Phone: [facility]Emergency Department Start: 12-02-[address] Felicita Corcoran Work Phone: [facility] Start: 12-02-2021 End: 12-02-[address] Michael Corcoran Work Phone: [facility] Start: 11-30-2021 End: 11-30-[address] Michael Corcoran Work Phone: [facility] Start: 11-26-2021 End: 11-26-[address] Michael Corcoran Work Phone: [facility] Start: 11-23-2021 End: 11-23-[address] Michael Corcoran Work Phone: [facility] Start: 11-23-2021 End: 11-23-[address] Michael Duque Phone: [facility] Start: 11-20-2021 Non-patient / Non-visit Dr. Olinda Corcoran Work Phone: [facility] Start: 11-20-2021 End: 11-20-2021 Admission to same day surgery center Dr[facility] Start: 11-18-[address] Felicita Corcoran Work Phone: [facility] Start: 11-17-2021 End: 11-17-[address] Michael Corcoran Work Phone: [facility] Start: 11-12-2021 End: 11-12-[address] Michael Corcoran Work Phone: [facility] Start: 11-11-2021 Non-patient / Non-visit Dr. Olinda Corcoran Work Phone: [facility] Start: 11-11-2021 End: 11-11-[address] Michael Corcoran Work Phone: [facility]Cardi[facility] Start: 11-10-2021 End: 11-10-[address] [facility] Duque [facility] Start: 11-06-2021 Non-patient / Non-visit Dr. Olinda Corcoran Work Phone: [facility] Start: 11-06-2021 End: 11-06-[address] [facility] Start: 11-04-2021 End: 11-04-[address] Michael Duuqe Phone: [facility] Start: 10-27-2021 End: 10-27-[address] Michael Corcoran Work Phone: [facility]-Laboratory, Specimen Start: 10-27-2021 End: 10-27-[address] Michael Corcoran Work Phone: [facility] Start: 10-05-2021 End: 10-05-[address] Michael Corcoran Work Phone: [facility]Outpatient Breast Imaging Start: 09-29-2021 End: 09-29-[address] Michael Corcoran Work Phone: [facility] Start: 08-30-2016 End: 08-30-2016 Ambulatory SABINO [facility] Roberto Procedures Date Procedure Procedure Detail Performing Clinician Start: 09-18-[address] Michael Corcoran MD Work Phone: Start: 08-10-2024 Urnls dip stick/tabl et reagent auto microscopy Dr. Michael Corcoran MD Work Phone: Start: 08-10-2024 Plain chest X-ray Dr. Natalie Corcoran MD Work Phone: Start: 08-10-[address] Felicita Corcoran MD Work Phone: Start: 03-20-2024 Measurement of renal function Dr. Michael Corcoran MD Work Phone: Comment on above: GFR Calc Start: 07-15-2023 Plain X-ray abdomen Dr. Michael Corcoran Work Phone: Start: 07-13-[address] Michael Corcoran Work Phone: Start: 07-13-2023 Computed tomography of abdomen and pelvis with intravenous contrast Dr. Michael Corcoran Work Phone: Start: 06-01-[address] Zaki Corcoran Work Phone: Start: 01-10-2023 Screening mammograph y of right breast Dr. Michael Corcoran Work Phone: Start: 12-09-[address] Michael Corcoran MD Work Phone: Start: 06-10-2022 Dual energy X-ray absorptiometry Dr. Michael Corcoran Work Phone: Start: 04-23-[address] Christ Corcoran Work Phone: Start: 04-23-2022 Mastectomy Modified Radical Axil Node (Left) Dr. Michael Corcoran Work Phone: Start: 04-23-2022 Radionuclide sentine l lymph node study Dr. Michael Corcoran Work Phone: Start: 04-09-2022 MRI of bilateral valentina asts with contrast Dr. Michael Corcoran Work Phone: Start: 12-08-2021 US scan of thyroid Dr. Michael Corcoran Work Phone: Start: 12-06-2021 Plain chest X-ray Dr. Natalie Corcoran Work Phone: Start: 11-23-2021 MRI of bilateral valentina asts with contrast Dr. Michael Corcoran Work Phone: Start: 11-20-2021 Radiographic procedu re of chest Dr. Michael Corcoran Work Phone: Start: 11-20-2021 Implantation to cardiovascular system Dr. Michael Corcoran Work Phone: Start: 11-20-2021 Fluoroscopic guidance Evaristo Corcoran Work Phone: Start: 11-18-2021 Positron emission tomography with computed tomography Dr. Michael Corcoran Work Phone: Start: 11-10-2021 Radionuclide whole b hank bone study Dr. Michael Corcoran Work Phone: Start: 11-06-2021 CT of chest and abdomen Dr. Michael Corcoran Work Phone: Start: 10-05-2021 Bilateral mammography Evaristo Corcoran Work Phone: Start: 10-05-[address] Michael Corcoran Work Phone: H/O: surgery History of lymph node dissection of axilla Dr. Michael Corcoran Work Phone: Comment on above: left SARS-CoV-2 & FLU Ant igen (Rapid) Dr. Michael Corcoran Work Phone: SARS-CoV-2 & FLU Ant igen (Rapid) Dr. Michael Corcoran Work Phone: Viral antigen assay Dr. Juan Corcoran Work Phone: Plan of Treatment Date Care Activity Detail Author Start: 09-18-2024 [facility] Start: 08-10-2024 End: 08-10-2024 [facility] Start: 07-15-2023 Venous catheter care management [facility] Start: 07-15-2023 Patient discharge [facility] Start: 07-14-2023 Admission procedure [facility] Start: 07-13-2023 Application of intermittent pneumatic compression device [facility] Start: 07-13-2023 End: 07-13-2023 Following clinical pathway protocol [facility] Start: 07-13-2023 Ambulation without limitation [facility] Start: 07-13-2023 Following clinical pathway protocol [facility] Start: 07-13-2023 Incentive spirometry [facility] Start: 07-13-2023 Measuring intake and output [facility] Start: 07-13-2023 Taking patient vital signs [facility] Start: 07-13-2023 [facility] Start: 07-13-2023 Admission procedure [facility] Start: 07-13-2023 Laparoscopic appendectomy Laparoscopic, Appendectomy (Not Applicable) [facility] Start: 07-13-2023 Hospital admission, emergency, from emergency room, medical nature [facility] Start: 07-13-2023 Computed tomography of abdomen and pelvis with intravenous contrast Abdomen/Pelvis W IV Cont ONLY [facility] Start: 07-13-2023 CT Abdomen and Pelvis W contrast IV [facility] Start: 06-01-2023 Venous catheter care management [facility] Start: 06-01-2023 Patient discharge [facility] Start: 04-28-2023 Patient referral [facility] Work Phone: Start: 09-16-2022 Patient referral [facility] Work Phone: Start: 04-24-2022 Venous catheter care management [facility] Start: 04-24-2022 Patient discharge [facility] Start: 04-24-2022 Referral to service [facility] Start: 04-23-2022 Oxygen therapy [facility] Start: 04-23-2022 Ambulation without limitation [facility] Start: 04-23-2022 Catheterization of vein [facility] Start: 04-23-2022 Incentive spirometry [facility] Start: 04-23-2022 Maintenance of drainage tube [facility] Start: 04-23-2022 Measuring intake and output [facility] Start: 04-23-2022 Notification of physician [facility] Start: 04-23-2022 Vital signs measurements [facility] Start: 04-23-2022 [facility] Start: 04-23-2022 Anesthesia radical/modified radical breast ANESTH SURGERY OF BREAST [facility] Start: 04-23-2022 Mast modf rad w/ax lymph nod w/wo pect/mel min MAST MOD RAD [facility] Start: 04-23-2022 Admission procedure [facility] Start: 04-23-2022 Verification routine [facility] Work Phone: Start: 04-09-2022 Venous catheter care management [facility] Start: 02-24-2022 Patient referral [facility] Work Phone: Start: 02-12-2022 Enteric precautions [facility] Work Phone: Start: 12-06-2021 Following clinical pathway protocol [facility] Work Phone: Start: 12-06-2021 Venous catheter care management [facility] Work Phone: Start: 12-02-2021 Venous catheter care management [facility] Start: 11-23-2021 Venous catheter care management [facility] Work Phone: Start: 11-20-2021 Anesthesia access central venous circulation ANESTH VASCULAR ACCESS [facility] Work Phone: Start: 11-20-2021 Insj tunneled ctr vad w/subq port age 6 yr/> INSERT TUNNELED CV CATH [facility] Work Phone: Start: 11-20-2021 Patient discharge [facility] Work Phone: Start: 11-18-2021 Positron emission tomography with computed tomography [facility] Work Phone: Start: 10-27-2021 Patient referral [facility] Work Phone: CBC W Auto Different ial panel - Blood [facility] Work Phone: CBC W Auto Different ial panel - Blood [facility] CBC W Auto Different ial panel - Blood [facility] CBC W Auto Different ial panel - Blood [facility] CBC W Auto Different ial panel - Blood [facility] CT Chest W contrast IV [facility] Gastrointestinal pat hogens panel - Stool by KIRSTY with probe detection [facility] Work Phone: Lactate dehydrogenas e measurement [facility] Lactate dehydrogenas e measurement [facility] Lactate dehydrogenas e measurement [facility] LDH [facility] Work Phone: Lipid 1996 panel - S kosta or Plasma [facility] Magnesium [Mass/volu me] in Serum or Plasma [facility] Work Phone: MG Breast - bilatera l Diagnostic [facility] Work Phone: MR Breast - bilatera l WO and W contrast IV [facility] Work Phone: Ova and parasites identified in Unspecified specimen by Light microscopy [facility] Work Phone: Patient Education [facility] Work Phone: Patient referral [facility] Work Phone: Positron emission tomography with computed tomography [facility] Work Phone: Urine culture [facility] Breast limited [facility] Work Phone: US Heart limited [facility] Work Phone: US Thyroid gland [facility] Work Phone: [facility] Immunizations Immunization Date Immunization Notes Care Provider Fa [facility] 01-12-2024 Seasonal trivalent influenza vaccine, adjuvanted, preservative free Dr. Michael Corcoran MD Work Phone: [facility] 02-03-2021 Covid (Pfizer) Dr. Michael Corcoran Work Phone: [facility] 02-03-2021 influenza, injectabl e, quadrivalent, preservative free Dr. Michael Corcoran Work Phone: [facility] 02-03-2021 influenza, seasonal, injectable Dr. Michael Corcoran Work Phone: [facility] 06-27-2020 Covid (Pfizer) Dr. Michael Corcoran Work Phone: [facility] 05-29-2020 Covid (Pfizer) Dr. Michael Corcoran Work Phone: [facility] 01-22-2020 influenza, injectabl e, quadrivalent, preservative free Dr. Michael Corcoran Work Phone: [facility] 01-22-2020 influenza, seasonal, injectable Dr. Michael Corcoran Work Phone: [facility] 12-30-[address] Michael Corcoran Work Phone: [facility] Payers Date Payer Category Payer Medicare [id number] 2021 Self-pay [id number] Unknown [id number] Unknown [id number] 2.16.8 [id number] Unknown [id number] 2.16.8 [id number] Unknown [id number] 2.16.8 [id number] Unknown [id number] 2.16.8 [id number] Unknown [id number] 2.16.8 [id number] Unknown [id number] 2.16.8 [id number] Unknown [id number] 2.16.8 [id number] Unknown [id number] 2.16.8 [id number] Unknown [id number] 2.16.8 [id number] Unknown [id number] 2.16.8 [id number] Unknown [id number] 2.16.8 [id number] Unknown [id number] 2.16.8 [id number] Social History Date Type Detail Facility Start: 09-29-2021 End: 07-29-2023 Tobacco smoking status NHIS Unknown if ever smoked [facility] Start: 12-28-2018 None [facility] Start: 12-28-2018 Spouse/ Signif icant Other [facility] Start: 1945 Sex Assigned At Female [facility] Start: 11-10-2023 End: 08-10-2024 Tobacco smoking status NHIS Never smoked tobacco (finding) [facility] Start: 07-16-2024 End: 08-10-2024 Sex Female (finding) [facility] NEGATED: Highlighted row [facility] Medical Equipment Procedure Code Equipment Code Equipment Origin al Text Equipment Identifier Dates Insertion, vascular access port ([id number]) Vascular port/catheter [id number] FDA Start: 11-20-2021 Appendectomy, laparoscopic APPLIERS,CLIP ER420 ENDO FDA Start: 07-13-2023 Appendectomy, laparoscopic RELOAD,STD 45 [id number] FDA Start: 07-13-2023 Appendectomy, laparoscopic APPLIERS,CLIP ER420 ENDO FDA Start: 07-13-2023 Appendectomy, laparoscopic RELOAD,STD 45 [id number] FDA Start: 07-13-2023 Appendectomy, laparoscopic APPLIERS,CLIP ER420 ENDO FDA Start: 07-13-2023 Appendectomy, laparoscopic RELOAD,STD 45 [id number] FDA Start: 07-13-2023 Appendectomy, laparoscopic APPLIERS,CLIP ER420 ENDO FDA Start: 07-13-2023 Appendectomy, laparoscopic RELOAD,STD 45 [id number] FDA Start: 07-13-2023 Appendectomy, laparoscopic APPLIERS,CLIP ER420 ENDO FDA Start: 07-13-2023 Appendectomy, laparoscopic RELOAD,STD 45 [id number] FDA Start: 07-13-2023 Appendectomy, laparoscopic APPLIERS,CLIP ER420 ENDO FDA Start: 07-13-2023 Appendectomy, laparoscopic RELOAD,STD 45 [id number] FDA Start: 07-13-2023 Ligation clip, metallic [id number] FDA Start: 04-23-2022 Ligation clip, metallic [id number] FDA Start: 04-23-2022 Goals Date Patient Goal Desired Activity /State Functional Status Date Assessment Result Facility 07-15-2023 Functional status Ambulates [facility] Work Phone: 04-24-2022 Functional status Ambulates [facility] Work Phone: Mental Status Date Assessment Result Facility 07-15-2023 Cognitive function Voice/Name [facility] Work Phone: 06-01-2023 Cognitive function Voice/Name [facility] Work Phone: 06-10-2022 Cognitive function Voice/Name [facility] Work Phone: 04-24-2022 Cognitive function Level Of Cons ciousness Awake;Alert;Appropriate [facility] Work Phone: 04-24-2022 Cognitive function Voice/Name [facility] Work Phone: 11-20-2021 Cognitive function Voice/Name [facility] Work Phone: Clinical Notes 06-01-2023 to 09-18-2024 Note Date & Type Note Facility 09-18-2024 Progress note [facility] 08-10-2024 Discharge summary [facility] 08-10-2024 Radiology Diagnostic study note [facility] Imaging Services [address], [place] [address] Chest 1 View (Portable) MR#: [id number] Acct: [id number] Name: PAUL BARONE Rep #: [id number] : 1945 F 78 From: Eddie Lau MD PCP: Dr. Michael Corcoran MD Status: R EG ER Study:Chest 1 View (Portable) Date of Exam: 08/10/24 Exam# [id number] Ordering Dr: Marcin Boyer MD PROCEDURE: CHEST 1 VIEW (PORTABLE) 08/10/2024 REASON FOR EXAM: SHORTNESS OF BREATH TECHNIQUE: Frontal view of the chest. COMPARISON: 12/06/2021 FINDINGS: Hardware: Right internal jugular chest port. Status post left axillary lymph node dissection. Heart: Cardiac and mediastinal contours are stable. Lungs: The lungs are clear. Elevated right hemidiaphragm. Bones: The bones are unremarkable. Other: RAD/Chest 1 View (Portable) IMPRESSION: No Acute Findings. Reading Location: [id number] CC: Dr. Marcin Boyer MD; Dr. Michael Corcoran MD ~ Ammunition Officer: Signed [facility] 08-10-2024 Discharge summary Note Date/Time August 10, 2024 7:45pm [facility] Medical Records Department [address] [place] [address] Emergency Department Summary 08/10/24 MR#: [id number] Acct: [id number] Name: PAUL BARONE Rep #:[id number] : 1945 78 From: Marcin Boyer MD PCP: Dr. Michael Corcoran MD Status:R EG ER Location: ED HPI History of Present Illness Chief Complaint: Shortness of Breath Narrative Narrative: 78-year-old female past medical history of recovery from breast carcinoma, DVT/PE on Eliquis presents with malaise and fatigue that she has had all day. She denies any fevers or chills, no cough but states that she feels short of breath. She states that yesterday, she was doing multiple tasks, and yesterday evening felt fatigued and started feeling bad then. She states that even after she woke up today, she is felt very tired. She denies any chest pain, no dysuria or hematuria, no nausea or vomiting, no diarrhea, no exacerbating or alleviating factors. She denies black stool. She states she feels short of breath, tired, and fatigued. [facility] Medical History Pain of left lower extremity Shingles Flu vaccine need Venous insufficiency of both lower extremities Cardiology follow-up encounter Osteopenia with high risk of fracture Colon cancer screening Cataract (lens) fragments in eye following cataract surgery, bilateral Screening for breast cancer Encounter for monitoring cardiotoxic drug therapy Decreased cardiac ejection fraction Encounter for monitoring cardiotoxic drug therapy Port-A-Cath in place Hypokalemia 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 CINV (chemotherapy-induced nausea and vomiting) Encounter for chemotherapy management Left thyroid nodule Encounter for education Wears dentures Wears glasses Anxiety Pulmonary embolism DVT (deep venous thrombosis) Non-smoker History of echocardiogram History of stress test Hypertension Breast cancer, left Abnormal mammogram of left breast Anxiety and depression Breast pain, left Left shoulder pain Encounter for screening for COVID-19 URI (upper respiratory infection) Chest pain Fractures involving multiple body regions Breast lump Blood clot in vein Vision problems Pneumonia Kidney stones H/O emotional problems Chronic bronchitis Asthma Arthritis Environmental allergies Home Medications ?Medication ?Instructions ?Recorded ?Last Taken ?Type albuterol sulfate 90 mcg/actuation 1 - 2 puff inhalati on Q4H PRN PRN 12/06/21 Unknown Rx aerosol inhaler (Ventolin HFA) Wheezing ##1 multivitamin 1 tab PO DAILY 07/15/2206/17 History loratadine 10 mg tablet (Claritin) 10 mg PO DAILY PRN allergies 08/26/22 07/17/22 History biotin 1 mg capsule 1 mg PO DAILY 10/29/2207/10 History lidocaine-prilocaine 2.5 %-2.5 % 1 applic topical ONCE PRN port 01/19/23 Unknown Rx topical cream access 30 days #30 grams Handicap Placard #1 ea 05/24/23 Unknown Rx Compression arm sleeve 20-30 mmHg #2 ea 06/28/23 Unkno wn Rx amlodipine 10 mg tablet 10 mg PO DAILY #90 tabs 07/17 06/11 Unknown Rx atorvastatin 40 mg tablet 40 mg PO DAILY #90 tabs 09/16 05/11 Unknown Rx anastrozole 1 mg tablet See Rx Instructions .Route 0 11/09/23 Unknown Rx .COMPLEX #90 tabs magnesium citrate 300 ml PO X1 #1 BOTTLE 11/09 Unknown Rx compress.stocking,knee,reg,lrg #2 ea 01/12/24 Unknown Rx denosumab 60 mg/mL subcutaneous 60 mg subcut [id number] #1 mL 01/17/24 Unknown Rx syringe (Prolia) paroxetine HCl 20 mg tablet (Paxil) 20 mg PO DAILY #90 tabs 05/18/24 Unknown Rx apixaban 5 mg tablet (Eliquis) See Rx Instructions .Ro [place] 07/11/24 Unknown Rx .COMPLEX #60 tabs Allergy/AdvReac Type Severity Reaction Status Date / Time Penicillins Allergy Hives Verified 08/10/24 17:04 Family History Father Alcoholism Asthma Mother Anxiety Blood clot in vein Myocardial infarction Grandmother Blood clot in vein Myocardial infarction Brother Myocardial infarction Aunt Breast cancer Grandmother CVA (cerebral vascular accident) Daughter Suicide attempt Other Colon cancer Surgical History History of appendectomy Hx of left mastectomy History of lymph node dissection of axilla S/P left mastectomy Hx of tubal ligation History of hysterectomy History of tonsillectomy History of shoulder surgery Social History Smoking Status: Never smoker alcohol intake: never substance use type: does not use caffeine: Yes Type: carbonated beverages Number of servings: 2 what type of physical activity do you participate in: none seatbelt use: always do you feel safe at home: Yes ROS ROS ED ROS Narrative Constitutional: No fever, no chills. Positive malaise and fatigue. HEENT: No sore throat. No neck pain. No loss of vision. No rhinorrhea. Cardiovascular: No chest pain. No palpitations. No pedal edema. Respiratory: No cough, positive shortness of breath. Abdominal: No abdominal pain. No nausea. No vomiting. Genitourinary: No dysuria. No hematuria. Musculoskeletal: No myalgias. No arthralgias. Neurologic: No headaches. No dizziness. No lightheadedness. EXAM Physical Exam Narrative Exam Narrative: Afebrile. Vital signs noted. Nontoxic-appearing. Cardiovascular examination reveals a regular rate and rhythm. Lungs are clear to auscultation bilaterally. No wheezing or stridor. Moving a good amount of air. Abdomen is soft, nontender, with positive bowel sounds. No guarding or rebound. Neurological examination nonfocal, nonlateralizing. Const Vital Signs: 08/10/24 17:01 08/10/24 17:19 08/10/24 17:51 Temperature 98.3 F Temperature Source Oral Pulse Rate 67 60 Respiratory Rate 16 18 Respiratory Effort Short of Breath Respiratory Depth Normal Respiratory Pattern Normal Blood Pressure 136/66 H 122/53 H Blood Pressure Mean 89 76 Pulse Ox 97 95 Oxygen Delivery Method Room Air Room Air 08/10/24 18:29 Temperature Temperature Source Pulse Rate 61 Respiratory Rate 18 Respiratory Effort Respiratory Depth Respiratory Pattern Blood Pressure 128/64 H Blood Pressure Mean 85 Pulse Ox 98 Oxygen Delivery Method MDM MDM MDM Narrative Medical decision making narrative: The differential diagnosis includes but not limited to dehydration versus other electrolyte imbalance versus anemia requiring transfusion. She may have an infectious cause of her malaise and fatigue including pneumonia but history and physical does not support this as she does not have a fever or cough. I have lower suspicion for pulmonary embolism as she is on Eliquis and has been for quite some time and has been compliant with her medication. Hence I do not feelD-dimer or CTA of the chest is indicated. I will obtain a urinalysis and basic blood work as well. EKG was obtained and interpreted by myself independently asnormal sinus rhythm at [address] changes. No STEMI. Is being read as a junctional rhythm, but I do see P waves on the rhythm strip in V1. She is not having chest pain so I do not feel troponins are indicated. I reviewed her laboratory work and she has normal white count of 9.1 with hemoglobin 13.2, hematocrit 39.9, platelet count 203. CMP shows glucose 113 with BUN of 30 and creatinine 1.49. When compared to prior labs she has historyof chronic kidney disease. Sodium normal at 142 potassium 4.1. No dehydration. LFTs are grossly unremarkable. Urinalysis shows 5-10 WBCs, but she is not having dysuria. I do not feel antibiotics are indicated so I will be sent for culture. Chest x-ray in 1 view interpreted by myself independently shows no evidence of pneumonia or pneumothorax. I reviewed the radiology report which confirms my independent interpretation. Repeat examination at approximately 1940 shows her to be slightly improved. Shefeels well and is motivated for discharge. At this point in time, I am unsure as to the cause of her reported shortness of breath and fatigue, but I feel she can be discharged and that she does not require observation or admission. She will follow-up with her primary care provider. Return instructions to the emergency department were reviewed. Disposition is discharged home in stable condition. History & Record Review Discussion w/independent historian: Patient and Family Additional record(s) reviewed:: Prior labs (Chronically elevated creatinine.) Lab Data Attestation: I reviewed the patient's lab results. Labs: Laboratory Results - last 24 hr 08/10/24 08/10/24 17:17 18:25 WBC 9.1 RBC 4.68 Hgb 13.2 Hct 39.9 MCV 85.3 MCH 28.2 MCHC 33.1 RDW Std Deviation 43.9 RDW Coeff of Nevin 14.1 Plt Count 203 MPV 10.7 Immature Gran % (Auto) 0.300 Neut % (Auto) 63.0 Lymph % (Auto) 24.7 Cherry % (Auto) 9.2 Eos % (Auto) 2.4 Baso % (Auto) 0.4 Absolute Neuts (auto) 5.7 Absolute Lymphs (auto) 2.24 Nucleated RBC % 0 Sodium 142 Potassium 4.1 Chloride 108 Carbon Dioxide 22.6 Anion Gap 12 BUN 30 H Creatinine 1.49 H Est GFR (MDRD) Non-Af 36 L BUN/Creatinine Ratio 20.0 Glucose 113 H Calcium 8.6 Total Bilirubin 0.38 AST 18 ALT 10 Alkaline Phosphatase 77 Total Protein 6.7 Albumin 3.9 Globulin 2.8 Albumin/Globulin Ratio 1.4 Urine Color Yellow Urine Clarity Clear Urine pH 6.0 Ur Specific [place] 1.020 Urine Protein 30 H Urine Glucose (UA) Normal Urine Ketones Negative Urine Occult Blood Negative Urine Nitrite Negative Urine Bilirubin 1 H Urine Urobilinogen 1 H Ur Leukocyte Esterase 100 H Urine RBC 0 SEEN Urine WBC 5-10 SEEN Ur Squamous Epith Cells 0-5 SEEN Urine Bacteria 2+ Hyaline Casts 0-5 SEEN Urine Mucus 1+ Radiography Chest X-Ray - ED: 1 View, Read by ED Physician, Read by Radiologist and Normal Diagnostic Testing: Clinical Impression(s) from Imaging Studies Chest X-Ray 08/10/24 17:50 IMPRESSION: No Acute Findings. Reading Location: [id number] Discharge Plan Triage Chief Complaint: Shortness of Breath ED Provider: Marcin Boyer Dx/Rx/DC Orders Clinical Impression: Generalized weakness, SOB (shortness of breath), Malaise and fatigue Instructions: ED Dyspnea, ED Weakness Uncertain Cause Prescriptions: No Action loratadine [Claritin] 10 mg tablet 10 mg PO DAILY PRN (Reason: allergies) multivitamin Tablet 1 tab PO DAILY biotin 1 mg capsule 1 mg PO DAILY amlodipine 10 mg tablet 10 mg PO DAILY Qty: 90 3RF (DME) compress.stocking,knee,reg,lrg Misc See Rx Instructions .MEDSUPPLY Qty: 2 1RF Rx Instructions: wear daily for venous insufficiency 20-30 mmHg Prolia 60 mg/mL syringe 60 mg subcut [id number] Qty: 1 2RF Patient Comments: Patient has not started yet, bu will start it. Eliquis 5 mg tablet See Rx Instructions .ROUTE .COMPLEX Qty: 60 3RF Dose Instruction: Take 1 tablet by mouth twice daily Patient Comments: stop 3 days prior to procedure Rx Instructions: Take 1 tablet by mouth twice daily albuterol sulfate [Ventolin HFA] 90 mcg/actuation HFA aerosol inhaler 1 - 2 puff inhalation Q4H PRN PRN (Reason: Wheezing) Qty: 1 0RF Patient Comments: Patient uses prn, but hasn't used in two years. Rx Instructions: may substitute for different brand of albuterol if needed magnesium citrate Solution 300 ml PO X1 Qty: 1 0RF lidocaine-prilocaine 2.5-2.5 % cream 1 applic topical ONCE PRN (Reason: port access) 30 Days Qty: 30 2RF (DME) Handicap Placard See Rx Instructions .ROUTE .MEDSUPPLY Qty: 1 0RF Rx Instructions: As directed, length of time 3 years (DME) Compression arm sleeve 20-30 mmHg See Rx Instructions .Route .MEDSUPPLY Qty: 2 4RF Rx Instructions: As directed atorvastatin 40 mg tablet 40 mg PO DAILY Qty: 90 4RF anastrozole 1 mg tablet See Rx Instructions .ROUTE .COMPLEX Qty: 90 3RF Dose Instruction: Take 1 tablet by mouth once daily Rx Instructions: Take 1 tablet by mouth once daily paroxetine HCl [Paxil] 20 mg tablet 20 mg PO DAILY Qty: 90 1RF Primary Care Provider: Michael Corcoran Referrals: Michael Corcoran MD [Primary Care Provider] - 3-5 Days if not improving Activity Restrictions/Additional Instructions: Follow-up with your primary care provider. Return with fever, new or worsening symptoms. Drink plenty of oral fluids. Rest at home. Print Language: Marshallese Disposition Disposition: Home, Self Care What to do if you have Problems For any increased pain, shortness of breath, bleeding, nausea or vomiting, chestpain, or any unexpected problems, contact your Primary Care Provider. Call [facility] ([phone]) or report to the closest Emergency Room. Call 911 if necessary. 08/10/241944 <Electronically signed by Marcin Boyer MD> Cosigner Signature (if applicable): CC: Dr. Michael Corcoran MD ~ Signed [facility] Work Phone: 1(792) 486-563803-26-2025 Evaluation note* Diagnosis Onset Date Resolution Status Admit Date History of deep vein thrombosis acut e July 11, 2024 11:02am Anxiety and depression chronic [facility] 2024 11:02am Borderline type 2 diabetes mellitus chronic July 11, 2024 11:02am Hypertension chronic July 11, 2024 11:02am Osteopenia with high risk of fracture chronic July 11, 2024 11:02am Pain of left lower extremity chronic July 11, 2024 11:02am [facility] Work Phone: 1(805) 278-238903-26-2025 Evaluation note* Diagnosis Onset Date Resolution Status Admit Date History of deep vein thrombosis acut e July 11, 2024 11:02am Anxiety and depression chronic [facility] 2024 11:02am Borderline type 2 diabetes mellitus chronic July 11, 2024 11:02am Hypertension chronic July 11, 2024 11:02am Osteopenia with high risk of fracture chronic July 11, 2024 11:02am Pain of left lower extremity chronic July 11, 2024 11:02am Nodule of chest wall acute September 18, 2024 2:41pm Breast cancer, left chronic September 18, 2024 2:41pm Osteopenia with high risk of fracture chronic September 18, 2024 2 :41pm [facility] Work Phone: 1(129) 792-844812-03-2024 Evaluation note* Diagnosis Onset Date Resolution Status Admit Date Hypocalcemia acute March 10:30am Breast cancer, left chronic Decem 2023 10:30am History of deep vein thrombosis acute July 11, 2024 11:02am Anxiety and depression chronic [facility] 2024 11:02am Borderline type 2 diabetes mellitus chronic July 11, 2024 11:02am Hypertension chronic July 11, 2024 11:02am Osteopenia with high risk of fracture chronic July 11, 2024 11:02am Pain of left lower extremity chronic July 11, 2024 11:02am [facility] Work Phone: [phone] Discharge summary Author Bertram Ibarra [facility] July 15, 2023 12:38pm Note Date/Time July 14, 2023 8:0 1am [facility] Medical Records Department [address] [place], [place] [id number] Discharge Summary 07/14/23 0800 MR#: [id number] Acct: [id number] Name: PAUL BARONE Rep #:[id number] : 1945 77 From: Bertram denton MD PCP: Dr. Michael Corcoran MD Status:A DM IN Location: [place] [address] Providers Date of Admission: 07/13/23 Primary Care Physician: Dr. Michael Corcoran MD Reason For Visit: ACUTE APPENDICITIS Diagnosis Discharge Diagnosis (1) Acute appendicitis: Status: Acute Code(s): K35.80 - Unspecified acute appendicitis Qualifiers: Acute appendicitis type: unspecified acute appendicitis type Qualified Code(s): K35.80 - Unspecified acute appendicitis Plan: The patient appears to have acute appendicitis. Her CT is not read yet but I did review it and there is inflammation around her appendix and she has 2 appendicoliths. She also is a white count of 17 and right lower quadrant pain with nausea and vomiting. I have started on Levaquin and Flagyl as she is penicillin allergic. I discussed laparoscopic appendectomy with her and her family members. I will take her now for surgery and admit her overnight on antibiotics and IV fluids. I discussed the risks of the procedure such as bleeding, infection, injury other organs such as the bowel, bladder, ureter. Patient understands all the risks and is willing to proceed. She has not taken her Eliquis in 2 days as she has been vomiting. Bertram Ibarra MD Pager: [facility] [address] [place] [address] [facility], [address] [place] [address] Office: Medications at Discharge Home Medications albuterol sulfate 90 mcg/actuation aerosol inhaler (Ventolin HFA) 1 - 2 puff inhalation Q4H PRN PRN Wheezing ##1 12/06/21 multivitamin 1 tab PO DAILY 07/15/22 loratadine 10 mg tablet (Claritin) 10 mg PO DAILY PRN allergies 08/26/22 biotin 1 mg capsule 1 mg PO DAILY 10/29/22 lidocaine-prilocaine 2.5 %-2.5 % topical cream 1 applic topical ONCE PRN port access 30 days #30 grams 01/19/23 amlodipine 5 mg tablet 7.5 mg (1.5 x 5 mg) PO DAILY 3 months #135 tabs 04/28/23 apixaban 5 mg tablet (Eliquis) See Rx Instructions .Route .COMPLEX #180 tabs 04/28/23 paroxetine HCl 20 mg tablet (Paxil) 20 mg PO DAILY #90 tabs 04/28/23 vibegron 75 mg tablet (Gemtesa) 75 mg PO DAILY #90 tabs 04/28/23 Handicap Placard #1 ea 05/24/23 anastrozole 1 mg tablet See Rx Instructions .Route .COMPLEX #90 tabs 06/08/23 denosumab 60 mg/mL subcutaneous syringe (Prolia) 60 mg subcut [id number] #1 mL 06/22/23 Compression arm sleeve 20-30 mmHg #2 ea 06/28/23 acetaminophen 325 mg tablet 650 mg (2 x 325 mg) PO Q4H PRN PRN Pain 1-10 Or Fever #0 tabs 07/14/23 ciprofloxacin HCl 500 mg tablet (Cipro) 500 mg PO BID 7 days #14 tabs 07/14/23 metronidazole 500 mg tablet 500 mg PO TID 7 days #21 tabs 07/14/23 oxycodone 5 mg tablet 5 - 10 mg (1 - 2 x 5 mg) PO Q4H PRN PRN PAIN 4-10 5 days #15 tabs 07/14/23 Hospital Course Operations appendectomy Procedures None Summary of Care Provided Hospital Course: Patient presented with right lower quadrant pain and CT scan confirmed acute appendicitis. She was taken for laparoscopic appendectomy. During appendectomythe patient had a very friable appendix and grasping it ruptured. The stool wasremoved and the abdomen was irrigated and suctioned dry but I will send her homeon a week of oral antibiotics to make sure she does not get an abscess. The following morning she was tolerating clear liquids and feeling well. I advance her to a regular diet when she tolerates that she will be discharged home. Physical Exam Const oriented x3 and no apparent distress Resp normal respiratory effort Cardio regular rate and regular rhythm GI soft to palpation and non-tender Extremity normal to inspection Weight / BMI Weight Weight: 200 lb 7 oz Body Mass Index (BMI) 37.8 ABG / Lab / Microbiology Data 07/13/23 12:55 07/13/23 12:55 Laboratory: Laboratory Results - last 24 hr 07/13/23 12:55: WBC 17.8 H, RBC 5.02, Hgb 13.9, Hct 42.6, MCV 84.9, MCH 27.7, MCHC 32.6, RDW Std Deviation 42.6, RDW Coeff of Nevin 13.8, Plt Count 180, MPV 10.1, Immature Gran % (Auto) 0.600, Neut % (Auto) 89.4 H, Lymph % (Auto) 3.5 L, Cherry % (Auto) 6.2, Eos % (Auto) 0.0, Baso % (Auto) 0.3, Absolute Neuts (auto) 15.9 H, Absolute Lymphs (auto) 0.63 L, Nucleated RBC % 0, Sodium 136, Potassium 3.6, Chloride 101, Carbon Dioxide 27.0, Anion Gap 8, BUN 18, Creatinine 1.20 H, Estim Creat Clear Calc 40.96, Est GFR (MDRD) Af Amer 56 L, Est GFR (MDRD) Non-Af46 L, BUN/Creatinine Ratio 15.0, Glucose 219 H, Lactic Acid 1.9, Calcium 9.1, Total Bilirubin 1.00, AST 12 L, ALT 14, Alkaline Phosphatase 92, Total Protein 7.4, Albumin 3.6, Globulin 3.8, Albumin/Globulin Ratio 0.9 07/13/23 14:06: Urine Color Yellow, Urine Clarity Sl. Cloudy, Urine pH 7.0, Ur Specific [place] 1.010, Urine Protein 100 H, Urine Glucose (UA) Normal, Urine Ketones 5 H, Urine Occult Blood 10 H, Urine Nitrite Negative, Urine Bilirubin Negative, Urine Urobilinogen Normal, Ur Leukocyte Esterase 25 H, Urine RBC 0-5 SEEN, Urine WBC 0-5 SEEN, Ur Squamous Epith Cells 0-5 SEEN, Urine Bacteria 1+, Urine Mucus 1+ Radiography Diagnostic Testing: Radiology Impression Abdomen/Pelvis CT 07/13/23 12:34 IMPRESSION: There is evidence of acute appendicitis with appendicoliths within the gallbladder lumen. Fatty infiltration of the liver. Distention of the gallbladder with multiple gallstones and findings suggestive of mild thickened gallbladder wall. Stable bilateral renal cysts. Electronically Signed: Augustin Ruiz MD at 15:06 EDT , D/C Instructions Discharge Diet: Light diet - advance as tolerated Discharge Activity: May Not Drive (for 2-3 days or while taking narcotic pain medications) and May Shower Lifting Restrictions: 15 pounds for 2 weeks Call your doctor if your incision/area has: Continuous Slow Oozing, Sudden Increased Bleeding, Increased Pain/ Swelling, Increased Redness and Foul Smelling Discharge Call your doctor if you observe: Fever of 101 or Higher Suture Line Care: Avoid Pulling/Pushing and Avoid Pinching/Bending Remove Dressing in: 2 days (Remove clear dressing in 2 days, remove Steri- Stripsin 7 to 10 days) Cleanse incision/area with: Soap & Water Additional Dressing/Incision Instructions: Alternate ibuprofen and Tylenol for pain control, oxycodone for breakthrough pain. Pain medications may constipate you, so take MiraLAX or magnesium citrate if needed. Resume Eliquis on Tuesday, 07/14 Additional Instructions: Keep dressing clean and dry. Change or remove dressing in 2 days. Leave steri strips for 1 week. May protect with a gauze bandaid. Please Follow Up With: Bertram Ibarra MD When: Please call to schedule 2 week follow up appointment at [phone] Meaningful Use Info Meaningful Use Diagnoses (Choose all that apply): None applicable Discharge Plan Admission Admit Date/Time: 07/13/23 17:10 Attending Provider: Bertram Ibarra Primary Care Provider: Michael Corcoran Discharge Orders/Prescriptions Prescriptions: New acetaminophen 325 mg Tablet 650 mg PO Q4H PRN PRN (Reason: Pain 1-10 Or Fever) Qty: 0 0RF oxycodone 5 mg Tablet 5 - 10 mg PO Q4H PRN PRN (Reason: PAIN 4-10) 5 Days Qty: 15 0RF ciprofloxacin HCl [Cipro] 500 mg tablet 500 mg PO BID 7 Days Qty: 14 0RF metronidazole 500 mg tablet 500 mg PO TID 7 Days Qty: 21 0RF Continued loratadine [Claritin] 10 mg tablet 10 mg PO DAILY PRN (Reason: allergies) multivitamin Tablet 1 tab PO DAILY biotin 1 mg capsule 1 mg PO DAILY amlodipine 5 mg tablet 7.5 mg PO DAILY 90 Days Qty: 135 2RF Eliquis 5 mg tablet See Rx Instructions .ROUTE .COMPLEX Qty: 180 1RF Hold Instructions: Away until JPs are removed we will have Lovenox once a day instead which will be a therapeutic dose Dose Instruction: Take 1 tablet by mouth twice daily Patient Comments: stop 3 days prior to procedure Rx Instructions: Take 1 tablet by mouth twice daily paroxetine HCl [Paxil] 20 mg tablet 20 mg PO DAILY Qty: 90 3RF Gemtesa 75 mg tablet 75 mg PO DAILY Qty: 90 2RF albuterol sulfate [Ventolin HFA] 90 mcg/actuation HFA aerosol inhaler 1 - 2 puff inhalation Q4H PRN PRN (Reason: Wheezing) Qty: 1 0RF Patient Comments: Patient uses prn, but hasn't used in two years. Rx Instructions: may substitute for different brand of albuterol if needed lidocaine-prilocaine 2.5-2.5 % cream 1 applic topical ONCE PRN (Reason: port access) 30 Days Qty: 30 2RF (DME) Handicap Placard See Rx Instructions .ROUTE .MEDSUPPLY Qty: 1 0RF Rx Instructions: As directed, length of time 3 years anastrozole 1 mg tablet See Rx Instructions .ROUTE .COMPLEX Qty: 90 0RF Dose Instruction: Take 1 tablet by mouth once daily Rx Instructions: Take 1 tablet by mouth once daily Prolia 60 mg/mL syringe 60 mg subcut [id number] Qty: 1 2RF Patient Comments: Patient has not started yet, bu will start it. (DME) Compression arm sleeve 20-30 mmHg See Rx Instructions .Route .MEDSUPPLY Qty: 2 4RF Rx Instructions: As directed Referrals / Follow Up: iMchael Corcoran MD [Primary Care Provider] - Disposition Disposition (needs filled in before D/C Order can be placed): Home, Self Care 07/14/23 0807 <Electronically signed by Bertram Ibarra MD> Cosigner Signature (if applicable): CC: Dr. Bertram Ibarra MD; Dr. Michael Corcoran MD~ Signed ADDENDUM by Dr. Bertram Ibarra MD on 07/15/23 at 1238 Addendum The patient's discharge was held yesterday as her white count was still elevatedand she did have an episode of hypotension. She was given a bolus and she tolerated this well and the following day she started passing flatus. She has been tolerating regular diet and her white count has decreased. I will discharge her home today. 07/15/23 1238<Electronically signed by Bertram Ibarra MD> Cosigner Signature (if applicable): cc: Dr. Bertram Ibarra MD; Dr. Michael Corcoran MD ~* Signed [facility] Work Phone: 1(359) 183-187903-29-2024 Progress note Author Bertram Ibarra [facility] July 15, 2023 8:05am Note Date/Time July 15, 2023 8:0 5am [facility] Medical Records Department [address] [place] [address] Progress Note - Surgery 07/15/23 0803 MR#: [id number] Acct: [id number] Name: PAUL BARONE Rep #:[id number] : 1945 77 From: Bertram denton MD PCP: Dr. Michael Corcoran MD Status:A DM IN Location: MS[facility] [id number] Subjective Subjective Patient reports tolerating regular diet with no nausea or vomiting. Her pain isstill minimal. She is reports there is about a 4 and it comes and goes. She isstill not having flatus. Her blood pressure was good overnight. Objective Data Objective Data Vital Signs: Vital Signs Temp Pulse Resp BP Pulse Ox O2 Del Method O2 Flow Rate 98.2 F 69 20 H 125/49 H 92 Room Air 2 07/15/23 04:28 07/15/23 04:28 07/15/23 04:28 07/15/23 04:28 07/15/23 04:28 07/15/23 04:28 07/14/23 04:21 Oxygen Flow Rate (L/min) 2 Oxygen Delivery Method Room Air Weight: 200 lb 7 oz Body Mass Index (BMI) 37.8 Intake & Output: Intake and Output for Last 24 Hours 07/13/23 07/14/23 07/15/23 23:59 23:59 23:59 Intake Total 2350 / 2550 4177.08 / 4177.08 1300 / 1300 Output Total 200 / 200 Balance 2350 / 2550 4177.08 / 4077.08 1100 / 1100 Lab / Micro Data 07/15/23 06:52 07/15/23 06:52 Labs: Laboratory Results - last 24 hr 07/14/23 06:43: WBC 17.9 H, RBC 4.50, Hgb 12.3, Hct 39.4, MCV 87.6, MCH 27.3, MCHC 31.2 L, RDW Std Deviation 47.3 H, RDW Coeff of Nevin 14.6, Plt Count 180, MPV11.0, Immature Gran % (Auto) 0.400, Neut % (Auto) 87.6 H, Lymph % (Auto) 3.5 L, Cherry % (Auto) 7.8, Eos % (Auto) 0.0, Baso % (Auto) 0.7, Absolute Neuts (auto) 15.7 H, Absolute Lymphs (auto) 0.62 L, Nucleated RBC % 0, Differential Comment SCANNED, Sodium 135 L, Potassium 4.2, Chloride 104, Carbon Dioxide 23.0, Anion Gap 8, BUN 34 H, Creatinine 2.11 H, Estim Creat Clear Calc 23.29, Est GFR (MDRD)Af Amer 29 L, Est GFR (MDRD) Non-Af 24 L, BUN/Creatinine Ratio 16.1, Glucose 250H, Calcium 8.4 L 07/15/23 06:52: WBC 12.5 H, RBC 3.84 L, Hgb 10.7 L, Hct 33.7 L, MCV 87.8, MCH 27.9, MCHC 31.8 L, RDW Std Deviation 47.7 H, RDW Coeff of Nevin 14.8 H, Plt Count 137 L, MPV 10.7, Immature Gran % (Auto) 0.500, Neut % (Auto) 84.3 H, Lymph % (Auto) 7.3 L, Cherry % (Auto) 7.6, Eos % (Auto) 0.1, Baso % (Auto) 0.2, Absolute Neuts (auto) 10.5 H, Absolute Lymphs (auto) 0.91, Nucleated RBC % 0, Sodium 137,Potassium 3.9, Chloride 108 H, Carbon Dioxide 22.0, Anion Gap 7, BUN 41 H, Creatinine 1.87 H, Estim Creat Clear Calc 26.28, Est GFR (MDRD) Af Amer 34 L, Est GFR (MDRD) Non-Af 28 L, BUN/Creatinine Ratio 21.9 H, Glucose 128 H, Calcium 8.1 L Physical Exam Const oriented x3 and no apparent distress Resp normal respiratory effort Cardio regular rate and regular rhythm GI soft to palpation and non-tender Inspection: abdominal distention Assessment & Plan Assessment/Plan (1) HINA (acute kidney injury): PLAN: The patient had HINA which worsened on postoperative day 1 and so yesterdayshe also became hypotensive. She was given a fluid bolus and her fluid rate wasincreased overnight. I believe her hemoglobin drop is dilutional from all of the fluid. She is not complaining of much abdominal pain. (2) Acute appendicitis: QUALIFIERS: Acute appendicitis type: unspecified acute appendicitis type Qualified Code(s): K35.80 - Unspecified acute appendicitis PLAN: The patient still reports that she is not passing gas and she seems a little bit distended. I am ordering a KUB to see if she has an ileus. White count is coming down. Continue antibiotics. She will go home on oral antibiotics. If she starts passing flatus and the KUB is not concerning I may discharge her home today. I started her back on her Eliquis today because I believe her drop in hemoglobin is dilutional. Bertram Ibarra MD Pager: [facility] [address] [place] [address], [address] [place] [address] Office: 07/15/23 0805 <Electronically signed by Bertram Ibarra MD> Cosigner Signature (if applicable): CC: ~ Signed [facility] Work Phone: 1(962) 682-101203-28-2024 Progress note Author Bertram Ibarra [facility] July 14, 2023 11:53am Note Date/Time July 14, 2023 11: 53am [facility] Medical Records Department [address] [place] [address] Progress Note 07/14/23 1153 MR#: [id number] Acct: [id number] Name: PAUL BARONE Rep #:[id number] : 1945 77 From: Bertram denton MD PCP: Dr. Michael Corcoran MD Status:A DM [facility] Location: [facility] AT000-9 Progress Note The patient had some hypotension. She did respond to a fluid bolus. Given the fact that she still has a white count of 17 with left shift and did have this hypotension and her creatinine is mildly elevated I will give her another bolus and keep her again overnight and recheck labs in the morning. 07/14/23 115 <Electronically signed by Bertram Ibarra MD> Bertram Ibarra MD Cosigner Signature (if applicable): CC: ~ Signed [facility] Work Phone: 1(882) 555-263403-27-2024 History and physical note Author [facility] July 13, 2023 3:34pm Note Date/Time July 13, 2023 3:3 4pm [facility] Medical Records Department [address] [place] [address] H&P Exam - Surgical 07/13/23 1529 MR#: [id number] Acct: [id number] Name: PAUL BARONE Rep #:[id number] : 1945 77 From: Bertram denton MD PCP: Dr. Michael Corcoran MD Status:R [facility] Location: [place] [address]-1 HPI - General HPI Narrative PAUL BARONE, is a 77 F who presents with 2 days of right lower quadrant pain. Patient also has nausea and vomiting and chills. She denies fever. There is no pain in the right upper quadrant. [facility] Medical History (Updated 07/13/23 @ 15:[address] Bertram Ibarra MD) Abnormal mammogram of left breast Anxiety Anxiety and depression Arthritis Asthma Blood clot in vein 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 Breast cancer, left Breast lump Breast pain, left Cardiology follow-up encounter Cataract (lens) fragments in eye following cataract surgery, bilateral Chest pain Chronic bronchitis CINV (chemotherapy-induced nausea and vomiting) Colon cancer screening Decreased cardiac ejection fraction DVT (deep venous thrombosis) Encounter for chemotherapy management Encounter for education Encounter for monitoring cardiotoxic drug therapy Encounter for monitoring cardiotoxic drug therapy Encounter for screening for COVID-19 Environmental allergies Fractures involving multiple body regions H/O emotional problems History of echocardiogram History of stress test Hypertension Hypokalemia Kidney stones Left shoulder pain Left thyroid nodule Non-smoker Osteopenia with high risk of fracture Pneumonia Port-A-Cath in place Pulmonary embolism Screening for breast cancer URI (upper respiratory infection) Vision problems Wears dentures Wears glasses Home Medications albuterol sulfate 90 mcg/actuation aerosol inhaler (Ventolin HFA) 1 - 2 puff inhalation Q4H PRN PRN Wheezing ##1 12/06/21 [Rx Last Taken Unknown] multivitamin 1 tab PO DAILY 07/15/22 [History Last Taken Unknown] loratadine 10 mg tablet (Claritin) 10 mg PO DAILY 08/26/22 [History Last Taken Unknown] biotin 1 mg capsule 1 mg PO DAILY 10/29/22 [History Last Taken Unknown] lidocaine-prilocaine 2.5 %-2.5 % topical cream 1 applic topical ONCE PRN port access 30 days #30 grams 01/19/23 [Rx Last Taken Unknown] amlodipine 5 mg tablet 7.5 mg (1.5 x 5 mg) PO DAILY 3 months #135 tabs 04/28/23 [Rx Last Taken 06/01/23] apixaban 5 mg tablet (Eliquis) See Rx Instructions .Route .COMPLEX #180 tabs 04/28/23 [Rx Last Taken 05/29/23] paroxetine HCl 20 mg tablet (Paxil) 20 mg PO DAILY #90 tabs 04/28/23 [Rx Last Taken Unknown] vibegron 75 mg tablet (Gemtesa) 75 mg PO DAILY #90 tabs 04/28/23 [Rx Last Taken Unknown] Handicap Placard #1 ea 05/24/23 [Rx Last Taken Unknown] anastrozole 1 mg tablet See Rx Instructions .Route .COMPLEX #90 tabs 06/08/23 [Rx Last Taken Unknown] denosumab 60 mg/mL subcutaneous syringe (Prolia) 60 mg subcut [id number] #1 mL 06/22/23 [Rx Last Taken Unknown] Compression arm sleeve 20-30 mmHg #2 ea 06/28/23 [Rx Last Taken Unknown] Allergy/AdvReac Type Severity Reaction Status Date / Time Penicillins Allergy Hives Verified 07/13/23 11:55 Family History Father Alcoholism Asthma Mother Anxiety Blood clot in vein Myocardial infarction Grandmother Blood clot in vein Myocardial infarction Brother Myocardial infarction Aunt Breast cancer Grandmother CVA (cerebral vascular accident) Daughter Suicide attempt Other Colon cancer Surgical History (Updated 05/25/23 @ 11:11 by Asia Nielsen) History of hysterectomy History of lymph node dissection of axilla History of shoulder surgery History of tonsillectomy Hx of left mastectomy Hx of tubal ligation S/P left mastectomy Social History Smoking Status: Never smoker alcohol intake: never substance use type: does not use caffeine: Yes Type: carbonated beverages Number of servings: 2 what type of physical activity do you participate in: none seatbelt use: always do you feel safe at home: Yes ROS Constitutional Constitutional: Denies anorexia or fatigue Eyes Eyes: Denies blurry vision ENT HEENT: Denies abnormal hearing Cardiovascular Cardiovascular: Denies chest pain Respiratory/Chest Respiratory/Chest: Denies cough or dyspnea Gastrointestinal Gastrointestinal: Reports abdominal pain, nausea and vomiting; Denies hematemesis or hematochezia Genitourinary Genitourinary: Denies change in urinary stream Musculoskeletal Musculoskeletal: Denies abnormal gait Integumentary Integumentary: Denies jaundice Neurologic Neurologic: Denies abnormal gait Psychiatric Psychiatric: Denies anxiety Endocrine Endocrinology: Denies flushing Hematologic/Lymphatic Hematologic/Lymphatic: Reports easy bleeding Vital Signs Vital Signs Vital Signs: 07/13/23 11:52 07/13/23 13:52 07/13/23 15:00 Temperature 97.4 F L Temperature Source Temporal Pulse Rate 98 72 81 Respiratory Rate 16 22 H 16 Blood Pressure 113/95 H 179/69 H 186/85 H Blood Pressure Mean 101 105 118 Pulse Ox 100 93 95 Oxygen Delivery Method Room Air Room Air Room Air 07/13/23 15:08 Temperature 98.8 F Temperature Source Pulse Rate 72 Respiratory Rate 18 Blood Pressure 186/65 H Blood Pressure Mean 105 Pulse Ox 95 Oxygen Delivery Method Weight Weight: 200 lb 7 oz Body Mass Index (BMI) 37.8 Physical Exam Const oriented x3 and no apparent distress Cardio regular rate and regular rhythm GI soft to palpation Palpation: tender RLQ external exam normal Extremity normal to inspection Results Lab / Micro Data 07/13/23 12:55 07/13/23 12:55 Labs: Laboratory Results - last 24 hr 07/13/23 12:55: WBC 17.8 H, RBC 5.02, Hgb 13.9, Hct 42.6, MCV 84.9, MCH 27.7, MCHC 32.6, RDW Std Deviation 42.6, RDW Coeff of Nevin 13.8, Plt Count 180, MPV 10.1, Immature Gran % (Auto) 0.600, Neut % (Auto) 89.4 H, Lymph % (Auto) 3.5 L, Cherry % (Auto) 6.2, Eos % (Auto) 0.0, Baso % (Auto) 0.3, Absolute Neuts (auto) 15.9 H, Absolute Lymphs (auto) 0.63 L, Nucleated RBC % 0, Sodium 136, Potassium 3.6, Chloride 101, Carbon Dioxide 27.0, Anion Gap 8, BUN 18, Creatinine 1.20 H, Estim Creat Clear Calc 40.96, Est GFR (MDRD) Af Amer 56 L, Est GFR (MDRD) Non-Af46 L, BUN/Creatinine Ratio 15.0, Glucose 219 H, Lactic Acid 1.9, Calcium 9.1, Total Bilirubin 1.00, AST 12 L, ALT 14, Alkaline Phosphatase 92, Total Protein 7.4, Albumin 3.6, Globulin 3.8, Albumin/Globulin Ratio 0.9 07/13/23 14:06: Urine Color Yellow, Urine Clarity Sl. Cloudy, Urine pH 7.0, Ur Specific [place] 1.010, Urine Protein 100 H, Urine Glucose (UA) Normal, Urine Ketones 5 H, Urine Occult Blood 10 H, Urine Nitrite Negative, Urine Bilirubin Negative, Urine Urobilinogen Normal, Ur Leukocyte Esterase 25 H, Urine RBC 0-5 SEEN, Urine WBC 0-5 SEEN, Ur Squamous Epith Cells 0-5 SEEN, Urine Bacteria 1+, Urine Mucus 1+ Assessment & Plan Assessment/Plan (1) Acute appendicitis: QUALIFIERS: Acute appendicitis type: unspecified acute appendicitis type Qualified Code(s): K35.80 - Unspecified acute appendicitis PLAN: The patient appears to have acute appendicitis. Her CT is not read yet but I did review it and there is inflammation around her appendix and she has 2 appendicoliths. She also is a white count of 17 and right lower quadrant pain with nausea and vomiting. I have started on Levaquin and Flagyl as she is penicillin allergic. I discussed laparoscopic appendectomy with her and her family members. I will take her now for surgery and admit her overnight on antibioticsand IV fluids. I discussed the risks of the procedure such as bleeding, infection, injury other organs such as the bowel, bladder, ureter. Patient understands all the risks and is willing to proceed. She has not taken her Eliquis in 2 days as she has been vomiting. Bertram Ibarra MD Pager: [facility] [address] [place] [address], [address] [place] [address] Office: 07/13/23 [id number] <Electronically signed by Bertram Ibarra MD> Cosigner Signature (if applicable): CC: Dr. Bertram Ibarra MD; Dr. Michael Corcoran MD~ Signed [facility] Work Phone: [phone]) 923-391403-27-2024 Discharge summary Author [place] [facility] [place] [facility] July 13, 2023 3:29pm Note Date/Time July 13, 2023 12: 37pm [facility] Medical Records Department [address] [place] [address] Emergency Department Summary 07/13/23 MR#: [id number] Acct: [id number] Name: PACOADALPAUL Ronda Rep #:[id number] : 1945 77 From: Thao Gustafson DO PCP: Dr. Michael Corcoran MD Status:R EG [facility] [place] Location: [place] [address]- HPI HPI - GI History of Present Illness Chief Complaint: Abd Pain Detail of Chief Complaint: Abdominal pain Informant: patient Narrative Narrative: Patient presents with abdominal pain that she has had for 2 days. Became more progressive and more painful over the last 24 hours. She started vomiting last evening and was thrown up about every hour and a half. She complains of some urinary frequency but no real dysuria. Patient does have history of kidney stones. She still has her appendix. She denies diarrhea. [facility] Medical History (Updated 07/13/23 @ 15:[address] Thao Gustafson DO) Abnormal mammogram of left breast Anxiety Anxiety and depression Arthritis Asthma Blood clot in vein 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 Breast cancer, left Breast lump Breast pain, left Cardiology follow-up encounter Cataract (lens) fragments in eye following cataract surgery, bilateral Chest pain Chronic bronchitis CINV (chemotherapy-induced nausea and vomiting) Colon cancer screening Decreased cardiac ejection fraction DVT (deep venous thrombosis) Encounter for chemotherapy management Encounter for education Encounter for monitoring cardiotoxic drug therapy Encounter for monitoring cardiotoxic drug therapy Encounter for screening for COVID-19 Environmental allergies Fractures involving multiple body regions H/O emotional problems History of echocardiogram History of stress test Hypertension Hypokalemia Kidney stones Left shoulder pain Left thyroid nodule Non-smoker Osteopenia with high risk of fracture Pneumonia Port-A-Cath in place Pulmonary embolism Screening for breast cancer URI (upper respiratory infection) Vision problems Wears dentures Wears glasses Home Medications albuterol sulfate 90 mcg/actuation aerosol inhaler (Ventolin HFA) 1 - 2 puff inhalation Q4H PRN PRN Wheezing ##1 12/06/21 [Rx Last Taken Unknown] multivitamin 1 tab PO DAILY 07/15/22 [History Last Taken Unknown] loratadine 10 mg tablet (Claritin) 10 mg PO DAILY 08/26/22 [History Last Taken Unknown] biotin 1 mg capsule 1 mg PO DAILY 10/29/22 [History Last Taken Unknown] lidocaine-prilocaine 2.5 %-2.5 % topical cream 1 applic topical ONCE PRN port access 30 days #30 grams 01/19/23 [Rx Last Taken Unknown] amlodipine 5 mg tablet 7.5 mg (1.5 x 5 mg) PO DAILY 3 months #135 tabs 04/28/23 [Rx Last Taken 06/01/23] apixaban 5 mg tablet (Eliquis) See Rx Instructions .Route .COMPLEX #180 tabs 04/28/23 [Rx Last Taken 05/29/23] paroxetine HCl 20 mg tablet (Paxil) 20 mg PO DAILY #90 tabs 04/28/23 [Rx Last Taken Unknown] vibegron 75 mg tablet (Gemtesa) 75 mg PO DAILY #90 tabs 04/28/23 [Rx Last Taken Unknown] Handicap Placard #1 ea 05/24/23 [Rx Last Taken Unknown] anastrozole 1 mg tablet See Rx Instructions .Route .COMPLEX #90 tabs 06/08/23 [Rx Last Taken Unknown] denosumab 60 mg/mL subcutaneous syringe (Prolia) 60 mg subcut [id number] #1 mL 06/22/23 [Rx Last Taken Unknown] Compression arm sleeve 20-30 mmHg #2 ea 06/28/23 [Rx Last Taken Unknown] Allergy/AdvReac Type Severity Reaction Status Date / Time Penicillins Allergy Hives Verified 07/13/23 11:55 Family History Father Alcoholism Asthma Mother Anxiety Blood clot in vein Myocardial infarction Grandmother Blood clot in vein Myocardial infarction Brother Myocardial infarction Aunt Breast cancer Grandmother CVA (cerebral vascular accident) Daughter Suicide attempt Other Colon cancer Surgical History (Updated 05/25/23 @ 11:11 by Asia Nielsen) History of hysterectomy History of lymph node dissection of axilla History of shoulder surgery History of tonsillectomy Hx of left mastectomy Hx of tubal ligation S/P left mastectomy Social History Smoking Status: Never smoker alcohol intake: never substance use type: does not use caffeine: Yes Type: carbonated beverages Number of servings: 2 what type of physical activity do you participate in: none seatbelt use: always do you feel safe at home: Yes ROS ROS ED Review of Systems ROS Unobtainable: other Constitutional Constitutional ED: Reports lethargy; Denies chills, fever(s), sweats or weight loss Eyes Eyes: Denies blurry vision, change in vision or diplopia ENT ENT ED: Denies rhinorrhea or sore throat Cardiovascular Cardiovascular: Denies chest pain, orthopnea or racing heartbeat Respiratory/Chest Respiratory/Chest: Denies cough, dyspnea, dyspnea on exertion, orthopnea or sputum Gastrointestinal Gastrointestinal: Reports abdominal pain, nausea and vomiting; Denies diarrhea Genitourinary Genitourinary ED: Reports urinary frequency; Denies dysuria or hematuria Musculoskeletal Musculoskeletal: Denies arthralgias, back pain, myalgias or neck pain Integumentary Denies abscess, Abrasions or rash Neurologic Neurologic: Denies headache(s) or weakness Psychiatric Psychiatric: Denies anxiety, depression or suicidal thoughts Endocrine Endocrinology: Denies polydipsia, polyphagia or polyuria Hematologic/Lymphatic Hematologic/Lymphatic: Denies easy bleeding, easy bruising or lymphadenopathy Allergic/Immunologic Allergic/Immunologic ED: Denies mouth swelling, tongue swelling or urticaria EXAM Physical Exam Const Vital Signs: 07/13/23 11:52 07/13/23 13:52 07/13/23 15:00 Temperature 97.4 F L Temperature Source Temporal Pulse Rate 98 72 81 Respiratory Rate 16 22 H 16 Blood Pressure 113/95 H 179/69 H 186/85 H Blood Pressure Mean 101 105 118 Pulse Ox 100 93 95 Oxygen Delivery Method Room Air Room Air Room Air Positive well nourished and well developed General Appearance ED: well developed and NAD HEENT Reports TM's clear and moist mucous membranes normocephalic and atraumatic; Negative for trauma or tenderness Tympanic Membrane ED: Yes TM's clear Eyes PERRL and EOMs intact bilaterally General Eye ED: Negative for pale conjunctiva or scleral icterus Neck no lymphadenopathy, supple and no JVD General: Negative for tenderness Chest Wall inspection of chest normal and palpation of chest normal Chest: Negative for tenderness Resp normal respiratory effort and clear to auscultation bilaterally Effort and Inspection: Negative for respiratory distress or pain with movement Auscultation: Negative for rhonchi, wheezes or diminished lung sounds Cardio regular rate, regular rhythm, S1 normal heart sound, S2 normal heart sound and no murmurs Peripheral Pulses: pulses 2+ throughout GI normal to inspection, nondistended, normoactive bowel sounds, soft to palpation,non-distended and no masses GI Narrative: Tenderness palpation over right lower quadrant over McBurney's with guarding. There is no rebound, rigidity, or pineal signs. No mass palpated. Back/Spine no CVA tenderness and no thoracic nor lumbar tenderness Extremity normal to inspection General Extremety ED: Negative for edema General Extremity: Negative for edema Neuro oriented x3, CN's II-XII intact bilaterally, no sensory deficits noted and gait normal Sensorium / Orientation: awake, alert, oriented to person, oriented to place andoriented to time Motor Exam: strength 5/5 throughout and strength abnormal Psych mental status grossly normal Skin no rashes or lesions noted and no wounds MDM MDM MDM Narrative Medical decision making narrative: Patient presents with abdominal pain and vomiting pain mostly to the right lowerquadrant. In the differential would be kidney stone or UTI or acute appendicitis or other acute intra-abdominal process. IV line established. Patient was medicated with morphine and Zofran and she had good pain relief withthat. CBC with differential white count 17.8 with hemoglobin 13.9 and platelet count of 180. Chemistries unremarkable. LFTs normal. Urinalysis normal. CT scan of the abdomen pelvis was obtained with IV contrast and on my interpretation shows acute appendicitis. Patient also noted to have enlarged gallbladder with gallstones. Clinically she has acute appendicitis. Discussed case with general surgeon on-call who agrees after looking at the CT scan and will call in the OR team. Given her pen allergy I started her on Levaquin and Flagyl IV. Official report on CT scan from radiology pending. Patient tells edward has not taken her Eliquis in 2 days. Lab Data Attestation: I reviewed the patient's lab results. Labs: Laboratory Results - last 24 hr 07/13/23 07/13/23 12:55 14:06 WBC 17.8 H RBC 5.02 Hgb 13.9 Hct 42.6 MCV 84.9 MCH 27.7 MCHC 32.6 RDW Std Deviation 42.6 RDW Coeff of Nevin 13.8 Plt Count 180 MPV 10.1 Immature Gran % (Auto) 0.600 Neut % (Auto) 89.4 H Lymph % (Auto) 3.5 L Cherry % (Auto) 6.2 Eos % (Auto) 0.0 Baso % (Auto) 0.3 Absolute Neuts (auto) 15.9 H Absolute Lymphs (auto) 0.63 L Nucleated RBC % 0 Sodium 136 Potassium 3.6 Chloride 101 Carbon Dioxide 27.0 Anion Gap 8 BUN 18 Creatinine 1.20 H Estim Creat Clear Calc 40.96 Est GFR (MDRD) Af Amer 56 L Est GFR (MDRD) Non-Af 46 L BUN/Creatinine Ratio 15.0 Glucose 219 H Lactic Acid 1.9 Calcium 9.1 Total Bilirubin 1.00 AST 12 L ALT 14 Alkaline Phosphatase 92 Total Protein 7.4 Albumin 3.6 Globulin 3.8 Albumin/Globulin Ratio 0.9 Urine Color Yellow Urine Clarity Sl. Cloudy Urine pH 7.0 Ur Specific [place] 1.010 Urine Protein 100 H Urine Glucose (UA) Normal Urine Ketones 5 H Urine Occult Blood 10 H Urine Nitrite Negative Urine Bilirubin Negative Urine Urobilinogen Normal Ur Leukocyte Esterase 25 H Urine RBC 0-5 SEEN Urine WBC 0-5 SEEN Ur Squamous Epith Cells 0-5 SEEN Urine Bacteria 1+ Urine Mucus 1+ EKG Initial EKG: Attestation: I personally reviewed and interpreted this EKG as follows: Comments: Sinus rhythm with ventricular rate of 72 bpm with left anterior fascicular block and LVH Discharge Plan Dx/Rx/DC Orders Clinical Impression: History of deep vein thrombosis, Abdominal pain, Acute appendicitis Disposition Disposition: Acute Care Hospital [facility] What to do if you have Problems For any increased pain, shortness of breath, bleeding, nausea or vomiting, chestpain, or any unexpected problems, contact your Primary Care Provider. Call [facility] ([phone]) or report to the closest Emergency Room. Call 911 if necessary. 07/13/23 [id number] <Electronically signed by Thao Gustafson DO> Cosigner Signature (if applicable): CC: Dr. Michael Corcoran MD ~ Signed [facility] Work Phone: [phone] 732-815803-27-2024 Procedure [facility] 06-01-2023 History and physical note Author [facility] June 01, 2023 7:23am Note Date/Time June 01, 2023 7:21am [facility] Medical Records Department [address] [place] [address] History & Physical Exam 06/01/23 0721 MR#: [id number] Acct: [id number] Name: PAUL BARONE Rep #:[id number] : 1945 77 From: Melyssa Saab MD PCP: Dr. Michael Corcoran MD Status:R EG [facility] [place] Location: [place] [address] History and Physical Date of Admission: 06/01/23 Date of Service: 05/09/23 MR#: [id number] Acct: [id number] Name: PAUL BARONE Rep #: [id number] : 1945 Provider: Dr. Melyssa Saab MD Age/Sex: 77/F Location: [facility] Status: Signed Intake Vital Signs 04/28/2412:52 05/09/2408:59 Height 5 ft 1 in Weight: 201 lb 202 lb BMI 38.0 BP 118/70 122/78 H Blood Pressure Location Lt brachial Rt brachial Position Sitting Sitting Respiration 14 17 Pulse 73 68 Pulse Source Monitor Monitor Temp 97.1 F L 97.2 F L Temp Source Temporal Temporal Pulse Oximetry (%) 97 97 Oxygen Delivery Method room air room air Intake Visit Reasons: Colonoscopy Chief Complaint: colonoscopy Is patient in pain?: No Allergies Penicillins Allergy (Verified 05/09/23 10:00) Hives Medications albuterol sulfate 90 mcg/actuation aerosol inhaler (Ventolin HFA) 1 - 2 puff inhalation Q4H PRN PRN Wheezing ##1 12/06/21 [Rx Confirmed 05/09/23] multivitamin 1 tab PO DAILY 07/15/22 [History Confirmed 05/09/23] loratadine 10 mg tablet (Claritin) 10 mg PO DAILY 08/26/22 [History Confirmed 05/09/23] biotin 1 mg capsule 1 mg PO DAILY 10/29/22 [History Confirmed 05/09/23] lidocaine-prilocaine 2.5 %-2.5 % topical cream 1 applic topical ONCE PRN port access 30 days #30 grams 01/19/23 [Rx Confirmed 05/09/23] anastrozole 1 mg tablet See Rx Instructions .Route .COMPLEX #90 tabs 03/15/23 [Rx Confirmed 05/09/23] amlodipine 5 mg tablet 7.5 mg (1.5 x 5 mg) PO DAILY 3 months #135 tabs 04/28/23 [Rx Confirmed 05/09/23] apixaban 5 mg tablet (Eliquis) See Rx Instructions .Route .COMPLEX #180 tabs 04/28/23 [Rx Confirmed 05/09/23] denosumab 60 mg/mL subcutaneous syringe (Prolia) 60 mg subcut [id number] #1 mL 04/28/23 [Rx Confirmed 05/09/23] paroxetine HCl 20 mg tablet (Paxil) 20 mg PO DAILY #90 tabs 04/28/23 [Rx Confirmed 05/09/23] vibegron 75 mg tablet (Gemtesa) 75 mg PO DAILY #90 tabs 04/28/23 [Rx Confirmed 05/09/23] PFSH Medical History Abnormal mammogram of left breast Anxiety Anxiety and depression Arthritis Asthma Blood clot in vein 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 Breast cancer, left Breast lump Breast pain, left Cataract (lens) fragments in eye following cataract surgery, bilateral Chest pain Chronic bronchitis CINV (chemotherapy-induced nausea and vomiting) Colon cancer screening Decreased cardiac ejection fraction DVT (deep venous thrombosis) Encounter for chemotherapy management Encounter for education Encounter for monitoring cardiotoxic drug therapy Encounter for monitoring cardiotoxic drug therapy Encounter for screening for COVID-19 Environmental allergies Fractures involving multiple body regions H/O emotional problems History of echocardiogram History of stress test Hypertension Hypokalemia Kidney stones Left shoulder pain Left thyroid nodule Non-smoker Osteopenia with high risk of fracture Pneumonia Port-A-Cath in place Pulmonary embolism Screening for breast cancer URI (upper respiratory infection) Vision problems Wears dentures Wears glasses Surgical History History of hysterectomy History of lymph node dissection of axilla History of shoulder surgery History of tonsillectomy Hx of tubal ligation S/P left mastectomy Family History Father Alcoholism AsthmaMother Anxiety Blood clot in vein Myocardial infarctionGrandmother Blood clot in vein Myocardial infarctionBrother Myocardial infarctionAunt Breast cancerGrandmother CVA (cerebral vascular accident)Daughter Suicide attemptOther Colon cancer Social History Smoking Status: Never smoker alcohol intake: never substance use type: does not use caffeine: Yes Type: carbonated beverages Number of servings: 2 what type of physical activity do you participate in: none seatbelt use: always do you feel safe at home: Yes HPI HPI HPI: 77-year-old female presents for screening colonoscopy. Had a colonoscopy about 30 years ago since then did Cologuard last time was in 2019. Patient had not gotten a Cologuard during her treatment for breast cancer. [facility]. Patient has bowel movements about every 2 days. Patient denies any immediate family historyof colon cancer. Patient was referred for colonoscopy due to her history of breast cancer instead of just getting Cologuard. ROS General General: Yes breast cancer; No weight change, appetite, fatigue, colon cancer or weakness HEENT HEENT: No difficulty swallowing, eye injury, eye surgery, swollen glands or hoarseness Endo Endocrine: No thyroid disease, diabetes mellitus, thyroid cancer, Hair loss, heat intolerance or cold intolerance Skin Skin: No rash or changing moles Breast Breast: No left breast lump, right breast lump, nipple discharge, breast pain, abnormal mammogram, abnormal US or breast enlargement Musc Musculoskeletal: Yes arthritis; No back problems, rheumatoid arthritis, gout or joint pain Cardio Cardiovascular: Yes high blood pressure; No murmur, pacemaker, heart disease, atrial fibrillation, heart attack, heart stent, palpitations, shortness of breat with exertion or chest pain Psych Psychiatric: No depression, anxiety or hearing voices Resp Respiratory: No shortness of breath, No sleep apnea, No cough, No COPD, No asthma, No emphysema and No wheezing Gastro Gastrointestinal: No abdominal pain, No nausea or vomiting, No diarrhea, No constipation, No blood in stool, No acid reflux, No hemorrhoids, No ulcers, No gallbladder problem and No black,tarry stools [place] Hematologic: Yes blood thinners, No blood disorders, No bleeding, No anemia and Yes blood clots Neuro Neurologic: No system reviewed and no additional complaints, except as documented, No as per HPI, No abnormal gait, No abnormal hearing, No abnormal movements, No abnormal speech, No behavioral changes, No burning sensations, No confusion, No convulsions, No disequilibrium, No dizziness, No localized weakness, No frequent falls, No headache(s), No lack of coordination, No loss ofvision, No memory loss, No numbness, No other visual disturbances, No radicular pain, No restless legs, No sensory deficit, No syncope, No tingling, No tremor(s), No weakness and No other Exam Const General: cooperative, healthy appearing, comfortable and no acute distress HENMT Head: normocephalic and atraumatic Neck Neck: supple Resp Effort & Inspection: normal respiratory effort Cardio Rate: regular rate GI Inspection: non-distended Palpation: soft and nontender Skin General: no rashes or lesions noted Neuro General: CN's II-XI intact bilaterally Extrem General: normal to inspection Psych Mental Status: mental status grossly normal Attitude: cooperative Assessment and Plan Assessment and Plan (1) Pulmonary emboli: Status: Chronic Comment: hx (2) Anticoagulant long-term use: Status: Acute (3) Colon cancer screening: Status: Acute Plan Let patient hold her Eliquis 3 days prior to procedure. I have discussed the above with the patient. I have offered the patient colonoscopy for evaluation. I have explained the risks/benefits of the procedure and described the procedure. I have discussed the risks with the patient, including but not limited to: infection, bleeding, perforation of the GI tract requiring emergency surgery, inability to complete the procedure, injury to any internal organs, complications of anesthesia, etc. - the patient understands and agrees to proceed. I have answered all the patient's questions to the patient's satisfaction and the patient has no further questions. The patient has been given instructions for the colon cleansing preparation. 1 day of clears, MiraLAX Dulcolax split prep. Melyssa Saab M.D. Pager: [phone] [facility] [address] [place] [address], [facility], [address] [place] [address] Office: [phone] Coding Level of Care Code Off vis,est,level 3 Diagnoses Pulmonary emboli I26.99 Anticoagulant long-term use Z79.01 Colon cancer screening Z12.11 05/09/23 1117 <Electronically signed by Melyssa Saab MD> Date Melyssa Saab MD 06/01/23 0721 <Electronically signed by Melyssa Saab MD> Cosigner Signature (if applicable): CC: Dr. Michael Corcoran MD; Dr. Melyssa Saab MD~ Signed ADDENDUM by Dr. Melyssa Saab MD on 06/01/23 at 0723 Addendum I have examined the patient and the H&P has been reviewed. There are no clinicalchanges since date of exam. 06/01/23722<Electronically signed by Melyssa Saab MD> Cosigner Signature (if applicable): cc: Dr. Michael Corcoran MD; Dr. Melyssa Saab MD ~* Signed [facility] Work Phone: [phone] 590-831702-14-2024 Procedure [facility]2023 [facility] Diagnosis Onset Date Resolution Status Breast pain, left acute Left shoulder pain acute Anxiety and depression chron ic Hypertension [facility] Work Phone: Evaluation note* Diagnosis Onset Date Resolution Status Breast pain, left acute Left shoulder pain acute Anxiety and depression chron ic Hypertension chronic LAD (lymphadenopathy), axillary acute Mass of multiple sites of left breast acute Breast cancer, left acute [facility] Work Phone: Evaluation note* Diagnosis Onset Date Resolution Status Breast pain, left acute Left shoulder pain acute Anxiety and depression chron ic Hypertension chronic LAD (lymphadenopathy), axillary acute Mass of multiple sites of left breast acute Breast cancer, left acute Breast cancer, left acute Pulmonary emboli acute Breast cancer, left acute Encounter for insertion of venous access port acute LAD (lymphadenopathy), axillary acute Pulmonary emboli acute [facility] Work Phone: Evaluation note* Diagnosis Onset Date Resolution Status Breast pain, left acute Left shoulder pain acute Anxiety and depression chron ic Hypertension chronic LAD (lymphadenopathy), axillary acute Mass of multiple sites of left breast acute Breast cancer, left acute Breast cancer, left acute Pulmonary emboli acute Breast cancer, left acute Encounter for insertion of venous access port acute LAD (lymphadenopathy), axillary acute Pulmonary emboli acute Breast cancer, left acute Breast cancer, left acute Encounter for education acut e [facility] Work Phone: Evaluation note* Diagnosis Onset Date Resolution Status Breast pain, left acute Left shoulder pain acute Anxiety and depression chron ic Hypertension chronic LAD (lymphadenopathy), axillary acute Mass of multiple sites of left breast acute Breast cancer, left acute Breast cancer, left acute Pulmonary emboli acute Breast cancer, left acute Encounter for insertion of venous access port acute LAD (lymphadenopathy), axillary acute Pulmonary emboli acute Breast cancer, left acute Breast cancer, left acute Encounter for education acut e Breast cancer, left acute Encounter for insertion of venous access port acute Breast cancer, left acute Encounter for chemotherapy management acute Left thyroid nodule acute [facility] Work Phone: Evaluation note* Diagnosis Onset Date Resolution Status Breast pain, left acute Left shoulder pain acute Anxiety and depression chron ic Hypertension chronic LAD (lymphadenopathy), axillary acute Mass of multiple sites of left breast acute Breast cancer, left acute Breast cancer, left acute Pulmonary emboli acute Breast cancer, left acute Encounter for insertion of venous access port acute LAD (lymphadenopathy), axillary acute Pulmonary emboli acute Breast cancer, left acute Breast cancer, left acute Encounter for education acut e Breast cancer, left acute Encounter for insertion of venous access port acute Breast cancer, left acute Encounter for chemotherapy management acute Left thyroid nodule acute 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 acute Breast cancer, left acute CINV (chemotherapy-induced nausea and vomiting) acute Left thyroid nodule acute Breast cancer, left acute Encounter for chemotherapy management acute Left thyroid nodule acute Breast cancer, left acute Hypokalemia acute Left thyroid nodule acute Breast cancer, left acute Encounter for chemotherapy management acute Left thyroid nodule acute [facility] Work Phone: Evaluation note* Diagnosis Onset Date Resolution Status LAD (lymphadenopathy), axillary acute Mass of multiple sites of left breast acute Breast cancer, left acute Breast cancer, left acute Pulmonary emboli acute Breast cancer, left acute Encounter for insertion of venous access port acute LAD (lymphadenopathy), axillary acute Pulmonary emboli acute Breast cancer, left acute Breast cancer, left acute Encounter for education acut e Breast cancer, left acute Encounter for insertion of venous access port acute Breast cancer, left acute Encounter for chemotherapy management acute Left thyroid nodule chronic 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 acute Breast cancer, left acute CINV (chemotherapy-induced nausea and vomiting) acute Left thyroid nodule chronic Breast cancer, left acute Encounter for chemotherapy management acute Left thyroid nodule chronic Breast cancer, left acute Hypokalemia acute Left thyroid nodule chronic Breast cancer, left acute Encounter for chemotherapy management acute Left thyroid nodule chronic Breast cancer, left acute Encounter for chemotherapy management acute Left thyroid nodule chronic [facility] Work Phone: Evaluation note* Diagnosis Onset Date Resolution Status Encounter for education acut e Breast cancer, left chronic Encounter for insertion of venous access port acute Breast cancer, left chronic Encounter for chemotherapy management acute Breast cancer, left chronic Left thyroid nodule chronic 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 acute CINV (chemotherapy-induced nausea and vomiting) acute Breast cancer, left chronic Left thyroid nodule chronic Encounter for chemotherapy management acute Breast cancer, left chronic Left thyroid nodule chronic Hypokalemia acute Breast cancer, left chronic Left thyroid nodule chronic Encounter for chemotherapy management acute Breast cancer, left chronic Left thyroid nodule chronic Encounter for chemotherapy management acute Breast cancer, left chronic Left thyroid nodule chronic Encounter for chemotherapy management acute Hypokalemia acute Hypomagnesemia acute Breast cancer, left chronic Left thyroid nodule chronic 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 acute Encounter for chemotherapy management acute Hypokalemia acute Hypomagnesemia acute Breast cancer, left chronic Left thyroid nodule chronic Breast cancer, left chronic [facility] Work Phone: Evaluation note* Diagnosis Onset Date Resolution Status Encounter for chemotherapy management acute Breast cancer, left chronic Left thyroid nodule chronic Hypokalemia acute Breast cancer, left chronic Left thyroid nodule chronic Encounter for chemotherapy management acute Breast cancer, left chronic Left thyroid nodule chronic Encounter for chemotherapy management acute Breast cancer, left chronic Left thyroid nodule chronic Encounter for chemotherapy management acute Hypokalemia acute Hypomagnesemia acute Breast cancer, left chronic Left thyroid nodule chronic 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 acute Encounter for chemotherapy management acute Hypokalemia acute Hypomagnesemia acute Breast cancer, left chronic Left thyroid nodule chronic Breast cancer, left chronic Hypokalemia acute Post chemo evaluation acute Breast cancer, left chronic Left thyroid nodule chronic [facility] Work Phone: Evaluation note* Diagnosis Onset Date Resolution Status Hypokalemia acute Breast cancer, left chronic Left thyroid nodule chronic Encounter for chemotherapy management acute Breast cancer, left chronic Left thyroid nodule chronic Encounter for chemotherapy management acute Breast cancer, left chronic Left thyroid nodule chronic Encounter for chemotherapy management acute Hypokalemia acute Hypomagnesemia acute Breast cancer, left chronic Left thyroid nodule chronic 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 acute Encounter for chemotherapy management acute Hypokalemia acute Hypomagnesemia acute Breast cancer, left chronic Left thyroid nodule chronic Breast cancer, left chronic Hypokalemia acute Post chemo evaluation acute Breast cancer, left chronic Left thyroid nodule chronic History of lymph node dissection of axilla acute Lymphedema acute S/P left mastectomy acute Breast cancer, left chronic [facility] Work Phone: Evaluation note* Diagnosis Onset Date Resolution Status Encounter for chemotherapy management acute Hypokalemia acute Hypomagnesemia acute Breast cancer, left chronic Left thyroid nodule chronic 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 acute Encounter for chemotherapy management acute Hypokalemia acute Hypomagnesemia acute Breast cancer, left chronic Left thyroid nodule chronic Breast cancer, left chronic Hypokalemia acute Post chemo evaluation acute Breast cancer, left chronic Left thyroid nodule chronic History of lymph node dissection of axilla acute Lymphedema acute Pulmonary emboli acute S/P left mastectomy acute Breast cancer, left chronic History of lymph node dissection of axilla acute Lymphedema acute Pulmonary emboli acute S/P left mastectomy acute Hypokalemia acute Breast cancer, left chronic Left thyroid nodule chronic History of lymph node dissection of axilla acute Lymphedema acute Pulmonary emboli acute S/P left mastectomy acute Hypokalemia acute Iron deficiency acute Breast cancer, left chronic Left thyroid nodule chronic Hypokalemia acute Iron deficiency acute Breast cancer, left chronic Left thyroid nodule chronic Osteopenia after menopause c hronic [facility] Work Phone: Evaluation note* Diagnosis Onset Date Resolution Status Hypokalemia acute Breast cancer, left chronic Encounter for monoclonal ant ibody treatment for malignancy acute Breast cancer, left chronic Left thyroid nodule chronic Osteopenia after menopause c hronic Encounter for monoclonal ant ibody treatment for malignancy acute Breast cancer, left chronic Left thyroid nodule chronic Osteopenia after menopause c hronic Encounter for monoclonal ant ibody treatment for malignancy acute Breast cancer, left chronic Left thyroid nodule chronic Osteopenia after menopause c hronic Encounter for monoclonal ant ibody treatment for malignancy acute Breast cancer, left chronic Left thyroid nodule chronic Osteopenia after menopause c hronic Encounter for monoclonal ant ibody treatment for malignancy acute Breast cancer, left chronic Left thyroid nodule chronic Osteopenia after menopause c hronic Decreased cardiac ejection fraction acute Encounter for monitoring cardiotoxic drug therapy acute Hypertension chronic [facility] Work Phone: Evaluation note* Diagnosis Onset Date Resolution Status Encounter for monoclonal ant ibody treatment for malignancy acute Breast cancer, left chronic Left thyroid nodule chronic Osteopenia after menopause c hronic Encounter for monoclonal ant ibody treatment for malignancy acute Breast cancer, left chronic Left thyroid nodule chronic Osteopenia after menopause c hronic Encounter for monoclonal ant ibody treatment for malignancy acute Breast cancer, left chronic Left thyroid nodule chronic Osteopenia after menopause c hronic Decreased cardiac ejection fraction acute Encounter for monitoring cardiotoxic drug therapy acute Hypertension chronic Prerenal azotemia acute Breast cancer, left chronic Encounter for monitoring cardiotoxic drug therapy acute Breast cancer, left chronic [facility] Work Phone: Evaluation note* Diagnosis Onset Date Resolution Status Encounter for monoclonal ant ibody treatment for malignancy acute Breast cancer, left chronic Left thyroid nodule chronic Osteopenia after menopause c hronic Encounter for monoclonal ant ibody treatment for malignancy acute Breast cancer, left chronic Left thyroid nodule chronic Osteopenia after menopause c hronic Encounter for monoclonal ant ibody treatment for malignancy acute Breast cancer, left chronic Left thyroid nodule chronic Osteopenia after menopause c hronic Decreased cardiac ejection fraction acute Encounter for monitoring cardiotoxic drug therapy acute Hypertension chronic Prerenal azotemia acute Breast cancer, left chronic Encounter for monitoring cardiotoxic drug therapy acute Breast cancer, left chronic Encounter for education acut e Encounter for monitoring cardiotoxic drug therapy acute Breast cancer, left chronic [facility] Work Phone: Evaluation note* Diagnosis Onset Date Resolution Status Encounter for monitoring cardiotoxic drug therapy acute Breast cancer, left chronic Colon cancer screening acute Anxiety and depression chron ic Breast cancer, left chronic Hypertension chronic Osteopenia with high risk of fracture chronic Pulmonary emboli chronic Anticoagulant long-term use acute Colon cancer screening acute Pulmonary emboli chronic [facility] Work Phone: Evaluation note* Diagnosis Onset Date Resolution Status Encounter for monitoring cardiotoxic drug therapy acute Breast cancer, left chronic Colon cancer screening acute Anxiety and depression chron ic Breast cancer, left chronic Hypertension chronic Osteopenia with high risk of fracture chronic Pulmonary emboli chronic Anticoagulant long-term use acute Colon cancer screening acute Pulmonary emboli chronic Abdominal pain acute Acute appendicitis acute HINA (acute kidney injury) ac [place] History of deep vein thrombosis acute [facility] Work Phone: Evaluation note* Diagnosis Onset Date Resolution Status Encounter for monitoring cardiotoxic drug therapy acute Breast cancer, left chronic Colon cancer screening acute Anxiety and depression chron ic Breast cancer, left chronic Hypertension chronic Osteopenia with high risk of fracture chronic Pulmonary emboli chronic Anticoagulant long-term use acute Colon cancer screening acute Pulmonary emboli chronic HINA (acute kidney injury) [place] History of deep vein thrombosis acute Abdominal pain resolved Acute appendicitis resolved HINA (acute kidney injury) [place] Dizziness acute Shortness of breath acute Acute appendicitis resolved [facility] Work Phone: Evaluation note* Diagnosis Onset Date Resolution Status Anticoagulant long-term use acute Colon cancer screening acute Pulmonary emboli chronic HINA (acute kidney injury) [place] History of deep vein thrombosis acute Abdominal pain resolved Acute appendicitis resolved HINA (acute kidney injury) [place] Dizziness acute Shortness of breath acute Acute appendicitis resolved Decreased cardiac ejection fraction acute Encounter for monitoring cardiotoxic drug therapy acute Hypertension chronic Acute appendicitis resolved [facility] Work Phone: Hospital Discharge instructions Additional Instructions Please be sure to notify your oncologist of your infection before your next chemotherapy treatment.[facility] Work Phone: Hospital Discharge instructions Additional Instructions Please keep yourself well-hydrated and use your medications as directed to control your symptoms. If you have any further concerns please return to the ER for repeat evaluation [facility] Work Phone: Hospital Discharge instructionsAmbulatory Orders* Physical Therapy Evaluation Location: None Selected Additional Instructions We will give Lovenox daily (therapeutic dose) to replace the Eliquis while the drains are in place. We will have you hold that Lovenox on the day we are planning to pull the drain. So hold lovenox on the day of the first office appt. Implant Used?: [facility] Work Phone: Hospital Discharge instructions Additional Instructions Follow-up with your primary care provider. Return with fever, new or worsening symptoms. Drink plenty of oral fluids. Rest at home.[facility] Work Phone: Progress note Author Miriam Meraz [facility] Note Date/Time September 18, 2024 4:30p m [facility] [address] [place], [place] [address]á[place] [address] OFFICE VISIT Date of Service: 09/18/24 1527 MR#: [id number] Acct: [id number] Name: PAUL BARONE Rep #: [id number] : 1945 From: Miriam Zazueta odalis REDRYING MACHINE OPERATOR REDRYING MACHINE OPERATOR-C Age/Sex: 78/F Location: [facility] [place] Status: Signed HPI Subjective Date of Service 09/18/24 Chief Complaint 6 M FU History of Present Illness 78 y.o.woman developed L breast pain in June 2021. Had a mammogram on 10/05/2021which showed multiple nodules in L breast suggestive of malignancy. US on the same day showed 2 masses in the L breast. She saw Dr. Saab, had US guided biopsy of L breast mass and L axillary node on 10/27/2021. 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 CT C/A/P with contrast obtained 11/06/21 demonstrated L breast mass and enlarged left axillary lymph node, bilateral parapelvic cysts and bilateral pulmonary emboli. Bone scan obtained 11/10/2021 showed no evidence of bony metastasis. Pretreatment echocardiogram 11/06/2021 shows normal LV size and function, EF 65%, normal global longitudinal strain and stage I diastolic dysfunction. PET/CT obtained 11/20/21 demonstrated multifocal uptake in left breast, SUV 5.4 largest individualfocus 25.2 mm, hypermetabolic activity within the left axilla, SUV 5, largest areas 18.7mm, increased uptake in left thyroid and no evidence of distant metastatic disease. MRI breast 11/23/21 demonstrated multifocal disease within theleft breast and findings compatible with inflammatory breast cancer. She was diagnosed with clinically Stage IIIB(cT4 cN2 M0) multifocal breast disease. Started TCHP C1 on 12/02/2021. Had diarrhea controlled with Imodium, bone pain controlled with Aleve. Left breast mass and axillary node resolved after 2nd cycle. Had diarrhea for about 2 weeks after C4, went to ER and needed IV fluids so dose of Carboplatin and Taxotere were decrease for C5. Got C6 on 03/17/2022.Had L breast MRM with L axillary dissection on 04/23/2022, showed 7 foci of invasive ductal carcinoma, largest measured 2.5 x 1.5 x 1.5 cm, negative margins, no skin or lymphovascular invasion, 1/10 LN positive for macrometastases, 2/10 LN positive for micrometastases. Got adjuvant Perjeta and Herceptin analogue 05/13/2022-12/09/22. Began anastrozole 08/27/22. Interval History The patient is presenting to clinic for a 6 month follow up. Confirms good adherence and tolerance to anastrozole. Concerns today include new lump along left chest wall. She noticed area 2 weeks ago. Is not changing in size. Non tender. Specifically denies weight loss, headaches, dizziness, CP, palpitations, cough, SOB, abd pain, swelling of her extremities. Fatigue mild not interfering with activity. [facility] Medical History Pain of left lower extremity Shingles Flu vaccine need Venous insufficiency of both lower extremities Cardiology follow-up encounter Osteopenia with high risk of fracture Colon cancer screening Cataract (lens) fragments in eye following cataract surgery, bilateral Screening for breast cancer Encounter for monitoring cardiotoxic drug therapy Decreased cardiac ejection fraction Encounter for monitoring cardiotoxic drug therapy Port-A-Cath in place Hypokalemia 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 CINV (chemotherapy-induced nausea and vomiting) Encounter for chemotherapy management Left thyroid nodule Encounter for education Wears dentures Wears glasses Anxiety Pulmonary embolism DVT (deep venous thrombosis) Non-smoker History of echocardiogram History of stress test Hypertension Breast cancer, left Abnormal mammogram of left breast Anxiety and depression Breast pain, left Left shoulder pain Encounter for screening for COVID-19 URI (upper respiratory infection) Chest pain Fractures involving multiple body regions Breast lump Blood clot in vein Vision problems Pneumonia Kidney stones H/O emotional problems Chronic bronchitis Asthma Arthritis Environmental allergies Surgical History History of appendectomy Hx of left mastectomy History of lymph node dissection of axilla S/P left mastectomy Hx of tubal ligation History of hysterectomy History of tonsillectomy History of shoulder surgery Family History Father Alcoholism Asthma Mother Anxiety Blood clot in vein Myocardial infarction Grandmother Blood clot in vein Myocardial infarction Brother Myocardial infarction Aunt Breast cancer Grandmother CVA (cerebral vascular accident) Daughter Suicide attempt Other Colon cancer Social History Smoking Status: Never smoker alcohol intake: never substance use type: does not use caffeine: Yes Type: carbonated beverages Number of servings: 2 what type of physical activity do you participate in: none seatbelt use: always do you feel safe at home: Yes ROS ROS Narrative Negative except as documented in the interval HPI Intake Vital Signs 08/10/24 17:01 09/18/24 15:29 Height 5 ft 1 in 5 ft 1 in Weight: 201 lb BMI 38.0 BP 104/69 Blood Pressure Location Rt brachial Position Sitting Respiration 18 Pulse 69 Pulse Source Monitor Temp 98.2 F Temperature Source Temporal Artery Pulse Oximetry (%) 95 Oxygen Delivery Method room air Intake Is patient in pain?: Yes (left ear from wisdom tooth) Allergies Penicillins Allergy (Verified 09/18/24 15:50) Hives Medications ?Medication ?Instructions ?Recorded ?Confirmed ?Type albuterol sulfate 90 mcg/actuation 1 - 2 puff inhalati on Q4H PRN PRN 12/06/21 09/18/24 Rx aerosol inhaler (Ventolin HFA) Wheezing ##1 multivitamin 1 tab PO DAILY 07/15/2207/10 History loratadine 10 mg tablet (Claritin) 10 mg PO DAILY PRN allergies 08/26/22 09/18/24 History biotin 1 mg capsule 1 mg PO DAILY 10/29/2209/18 History lidocaine-prilocaine 2.5 %-2.5 % 1 applic topical ONCE PRN port 01/19/23 09/18/24 Rx topical cream access 30 days #30 grams Handicap Placard #1 ea 05/24/23 09/18/24 Rx Compression arm sleeve 20-30 mmHg #2 ea 06/28/2309/18 Rx atorvastatin 40 mg tablet 40 mg PO DAILY #90 tabs 09/1609/18/24 Rx magnesium citrate 300 ml PO X1 #1 BOTTLE 11/0909/18/24 Rx compress.stocking,knee,reg,lrg #2 ea 01/12/24 09/18/24 Rx paroxetine HCl 20 mg tablet (Paxil) 20 mg PO DAILY #90 tabs 05/18/24 09/18/24 Rx apixaban 5 mg tablet (Eliquis) See Rx Instructions .[place] 07/11/24 09/18/24 Rx .COMPLEX #60 tabs amlodipine 10 mg tablet 10 mg PO DAILY #90 tabs 08/1709/18/24 Rx anastrozole 1 mg tablet See Rx Instructions .Route 0 09/18/24 09/18/24 Rx .COMPLEX #90 tabs Have you fallen in the past year?: No Central Venous Access Central Venous Access: Yes Port/PICC: Port Laboratory Tests 09/18/24 15:05 WBC 8.3 Hgb 13.1 Hct 40.6 Plt Count 213 Absolute Neuts (auto) 5.3 Sodium 139 Potassium 4.2 Chloride 106 BUN 26 H Creatinine 1.37 H Glucose 143 H Calcium 8.6 Total Bilirubin 0.44 AST 19 ALT 13 Alkaline Phosphatase 94 Albumin 4.0 Exam Physical Exam Const alert, oriented x3 and no apparent distress HEENT normocephalic and external nose normal Eyes PERRL and no scleral icterus Neck full ROM and supple Chest Chest Narrative: Left breast absent shows well healed scar. 2 cm nodularity palpable mid mastectomy scar only palpable in supine position. non tender. Right breast without palpable masses skin abnormalities, nipple discharge or retraction. Resp normal respiratory effort and clear to auscultation bilaterally Cardio regular rate, regular rhythm, S1 normal heart sound and S2 normal heart sound GI normal to inspection, nondistended, normoactive bowel sounds Extremity no clubbing, cyanosis or edema Skin no rashes or lesions noted Psych mental status grossly normal Coding Level of Care Code Off vis,est,level 4 Exam Problem Focused Diagnoses Malignant neoplasm of upper-inner quadrant of left breast in female, estrogen receptor positive C50.212; Z17.0 Breast location: upper inner quadrant of breast Estrogen receptor status: positive Patient sex: female Osteopenia with high risk of fracture M85.80 Nodule of chest wall R22.2 Assessment and Plan Assessment and Plan (1) Breast cancer, left: Status: Chronic Qualifiers: Breast location: upper inner quadrant of breast Estrogen receptor status: positive Patient sex: female Qualified Code(s): C50.212 - Malignant neoplasm of upper- inner quadrant of left female breast; Z17.0 - Estrogen receptor positive status [ER+] Comment: On adjuvant therapy with Anastrozole. Tolerating therapy. Labs reviewed. Plan: To continue adjuvant Anastrozole 1mg daily. (2) Osteopenia with high risk of fracture: Status: Chronic Plan: Reminded anastrozole can accelerate loss of bone density. Continue calcium and vitamin D and weight bearing activity. Receiving Prolia at [facility] per her pcp. (3) Nodule of chest wall: Status: Acute Plan: Request CT chest with contrast. Orders: Orders Chest WITH Contrast Today C50.212 - Malignant neoplasm of upper-inner quadrant of left female breast, R22.2 - Localized swelling, mass and lump, trunk, Z17.0 - Estrogen receptor positive status [ER+] Medications: Refilled anastrozole Take 1 tablet by mouth once daily 90 tabs 3RF C50.912 - Malignant neoplasm of unspecified site of left female breast Discontinued denosumab (Prolia) Discontinued Reason: Pt no longer taking 60 mg subcut [id number] 1 mL 2RF Clinical Quality Measures Falls Risk Screening/Assistive Devices Have you fallen in the past year?: No 09/18/24 1630 <Electronically signed by Miriam VILLAGRAN> Date _ Miriam VILLAGRAN Cosigner Signature: Date (if applicable) CC: ~ [facility] Work Phone: Reason for referral (narrative)No reason for referral information availableW[facility] Work Phone: Summary Purpose Family History No Family History Records Found Relationship Condition Age at Onset Recorded Date/T brigida father Alcoholism Unknown Asthma Unknown mother Anxiety Unknown Venous thrombosis Unknown Myocardial infarction Unknown grandmother Venous thrombosis Unknown brother Myocardial infarction Unknown aunt Malignant neoplasm of breast Unknown grandmother Cerebrovascular accident (CVA) Unknown daughter Attempted suicide Unknown Relationship Condition Age at Onset Recorded Date/T brigida Not Specified Malignant neoplasm of colon Unknown father Alcoholism Unknown Asthma Unknown mother Anxiety Unknown Venous thrombosis Unknown Myocardial infarction Unknown grandmother Venous thrombosis Unknown brother Myocardial infarction Unknown aunt Malignant neoplasm of breast Unknown grandmother Cerebrovascular accident (CVA) Unknown daughter Attempted suicide Unknown Advance Directives No Advanced Directives Records Found Advance Directive Response Recorded Date/ Time Living Will No October 23, 2020 2 :12pm Power of Machine Adjuster Leader No October 23, 2020 2:12pm Advance Directive Response Recorded Date/ Time Living Will No November 18, 2021 8:17am Power of Machine Adjuster Leader No November 18 8:17am Advance Directive Response Recorded Date/ Time Advance Directives on File No 2021 9:42am Advance Directives No December 02, 2021 9:42am Living Will No December 06 4:24am Power of Machine Adjuster Leader No December 06 022 4:24am Advance Directive Response Recorded Date/ Time Advance Directives on File No 2021 9:40am Advance Directives No December 9:40am Living Will No January 18 2:58am Power of Machine Adjuster Leader No January 18 2:58am Advance Directive Response Recorded Date/ Time Advance Directives on File No 2021 9:40am Advance Directives No December 9:40am Living Will No January 20 5:58pm Power of Machine Adjuster Leader No January 20 5:58pm Advance Directive Response Recorded Date/ Time Advance Directives on File No 2021 3:55pm Advance Directives No February 04, 2022 3:55pm Living Will No February 12 1:54pm Power of Machine Adjuster Leader No February 12, 2022 1:54pm Advance Directive Response Recorded Date/ Time Advance Directives on File No 2021 9:37am Advance Directives No February 9:37am Living Will No March 25 11:30pm Power of Machine Adjuster Leader No March 25, 2022 11:30pm Advance Directive Response Recorded Date/ Time Advance Directives on File No 2021 9:37am Advance Directives No February 9:37am Living Will No April 23 3:35pm Power of Machine Adjuster Leader No April 23 023 3:35pm Advance Directive Response Recorded Date/ Time Advance Directives on File No u 2022 9:13am Advance Directives No May 9:13am Living Will No February 16th, 2 023 9:13am Power of Machine Adjuster Leader No June 03, 2022 9:13am Advance Directive Response Recorded Date/ Time Advance Directives on File No October 28, 2022 3:12pm Advance Directives No October 28 3:12pm Living Will No October 28, 2022 3:12pm Power of Machine Adjuster Leader No October 28 3:12pm Advance Directive Response Recorded Date/ Time Advance Directives on File No Augus 2022 3:00pm Advance Directives No December 09, 2022 3:00pm Living Will No December 09 3:00pm Power of Machine Adjuster Leader No December 09, 2 023 3:00pm Advance Directive Response Recorded Date/ Time Advance Directives on File No Augus t 2022 2:00pm Advance Directives No February 01, 2023 12:59pm Living Will No May 25 11:11am Power of Machine Adjuster Leader No May 25, 2023 11:11am Advance Directive Response Recorded Date/ Time Advance Directives on File No Augus t 2022 3:00pm Advance Directives No February 01, 2023 1:59pm Living Will No July 13, 2023 3:04pm Power of Machine Adjuster Leader No July 12 3:04pm Advance Directive Response Recorded Date/ Time Advance Directives on File No Augus t 2022 3:00pm Advance Directives No February 01, 2023 1:59pm Living Will No July 13, 2023 7:37pm Power of Machine Adjuster Leader No July 12 7:37pm Advance Directive Response Recorded Date/ Time Living Will No July 13, 2023 7:37pm Do you have a Healthcare Power of Machine Adjuster Leader? No July 13, 2023 7:37pm Living Will No November 10, 2023 10:21am Do you have a Healthcare Power of Machine Adjuster Leader? No November 10, 2023 10:21am Advance Directives on File No Augus t 2022 3:00pm Living Will No December 09 3:00pm Do you have a Healthcare Power of Machine Adjuster Leader? No December 09, 2022 3:00pm Advance Directives No February 01, 2023 1:59pm Advance Directive Response Recorded Date/ Time Living Will No November 10, 2023 10:21am Do you have a Healthcare Power of Machine Adjuster Leader? No November 10, 2023 10:21am Advance Directives on File No Peña 2022 3:00pm Living Will No December 09 3:00pm Do you have a Healthcare Power of Machine Adjuster Leader? No December 09, 2022 3:00pm Do you have a Healthcare Power of Machine Adjuster Leader? No August 10, 2024 5:19pm Advance Directives No February 01, 2023 1:59pm Chief Complaint and Reason for Visit Chief Complaint PAIN IN BREAST AND B ACK Reason for Visit Breast pain, left Left shoulder pain Anxiety and depression Hypertension Chief Complaint PAIN IN BREAST AND B ACK LT BREAST PAIN Reason for Visit Breast pain, left Left shoulder pain Anxiety and depression Hypertension Chief Complaint PAIN IN BREAST AND B ACK LT BREAST PAIN BIRADS 4 LEFT BREAST BREAST MASS-LEFT & LEFT AXILLARY MASS NEW-BREAST CA MALIGNANT NEOPLASM OF LEFT BREAST MALIGNANT NEOPLASM OF LEFT BREAST hx pe Reason for Visit Breast pain, left Left shoulder pain Anxiety and depression Hypertension LAD (lymphadenopathy), axillary Mass of multiple sites of left breast Breast cancer, left Chief Complaint PAIN IN BREAST AND B ACK LT BREAST PAIN BIRADS 4 LEFT BREAST BREAST MASS-LEFT & LEFT AXILLARY MASS NEW-BREAST CA MALIGNANT NEOPLASM OF LEFT BREAST MALIGNANT NEOPLASM OF LEFT BREAST hx pe 1WK NO LABS REVIEW ECHO/CT/BONE SCAN PORT PLACEMENT AND DISCUSS SURGERY MALIGNANT NEOPLASM OF LEFT BREAST Reason for Visit Breast pain, left Left shoulder pain Anxiety and depression Hypertension LAD (lymphadenopathy), axillary Mass of multiple sites of left breast Breast cancer, left Breast cancer, left Pulmonary emboli Breast cancer, left Encounter for insertion of venous access port LAD (lymphadenopathy), axillary Pulmonary emboli Chief Complaint PAIN IN BREAST AND B ACK LT BREAST PAIN BIRADS 4 LEFT BREAST BREAST MASS-LEFT & LEFT AXILLARY MASS NEW-BREAST CA MALIGNANT NEOPLASM OF LEFT BREAST MALIGNANT NEOPLASM OF LEFT BREAST hx pe 1WK NO LABS REVIEW ECHO/CT/BONE SCAN PORT PLACEMENT AND DISCUSS SURGERY MALIGNANT NEOPLASM OF LEFT BREAST INSERTION VASCULAR PORT RT POSS LT INSERTION VASCULAR PORT RT POSS LT Reason for Visit Breast pain, left Left shoulder pain Anxiety and depression Hypertension LAD (lymphadenopathy), axillary Mass of multiple sites of left breast Breast cancer, left Breast cancer, left Pulmonary emboli Breast cancer, left Encounter for insertion of venous access port LAD (lymphadenopathy), axillary Pulmonary emboli Chief Complaint PAIN IN BREAST AND B ACK LT BREAST PAIN BIRADS 4 LEFT BREAST BREAST MASS-LEFT & LEFT AXILLARY MASS NEW-BREAST CA MALIGNANT NEOPLASM OF LEFT BREAST MALIGNANT NEOPLASM OF LEFT BREAST hx pe 1WK NO LABS REVIEW ECHO/CT/BONE SCAN PORT PLACEMENT AND DISCUSS SURGERY MALIGNANT NEOPLASM OF LEFT BREAST INSERTION VASCULAR PORT RT POSS LT INSERTION VASCULAR PORT RT POSS LT ABNORMAL MAMMO REVIEW PET NO LABS CHEMO ED Reason for Visit Breast pain, left Left shoulder pain Anxiety and depression Hypertension LAD (lymphadenopathy), axillary Mass of multiple sites of left breast Breast cancer, left Breast cancer, left Pulmonary emboli Breast cancer, left Encounter for insertion of venous access port LAD (lymphadenopathy), axillary Pulmonary emboli Breast cancer, left Breast cancer, left Encounter for education Chief Complaint PAIN IN BREAST AND B ACK LT BREAST PAIN BIRADS 4 LEFT BREAST BREAST MASS-LEFT & LEFT AXILLARY MASS NEW-BREAST CA MALIGNANT NEOPLASM OF LEFT BREAST MALIGNANT NEOPLASM OF LEFT BREAST hx pe 1WK NO LABS REVIEW ECHO/CT/BONE SCAN PORT PLACEMENT AND DISCUSS SURGERY INSERTION VASCULAR PORT RT POSS LT INSERTION VASCULAR PORT RT POSS LT ABNORMAL MAMMO REVIEW PET NO LABS CHEMO ED PORT PLACED 11/20/21 LABS NEW START MALIGNANT NEOPLASM OF LEFT BREAST SOB Reason for Visit Breast pain, left Left shoulder pain Anxiety and depression Hypertension LAD (lymphadenopathy), axillary Mass of multiple sites of left breast Breast cancer, left Breast cancer, left Pulmonary emboli Breast cancer, left Encounter for insertion of venous access port LAD (lymphadenopathy), axillary Pulmonary emboli Breast cancer, left Breast cancer, left Encounter for education Breast cancer, left Encounter for insertion of venous access port Breast cancer, left Encounter for chemotherapy management Left thyroid nodule Chief Complaint PAIN IN BREAST AND B ACK LT BREAST PAIN BIRADS 4 LEFT BREAST BREAST MASS-LEFT & LEFT AXILLARY MASS NEW-BREAST CA MALIGNANT NEOPLASM OF LEFT BREAST MALIGNANT NEOPLASM OF LEFT BREAST hx pe 1WK NO LABS REVIEW ECHO/CT/BONE SCAN PORT PLACEMENT AND DISCUSS SURGERY INSERTION VASCULAR PORT RT POSS LT INSERTION VASCULAR PORT RT POSS LT ABNORMAL MAMMO REVIEW PET NO LABS CHEMO ED PORT PLACED 11/20/21 LABS NEW [place] MALIGNANT NEOPLASM OF LEFT BREAST SOB Nontoxic single thyroid nodule Reason for Visit Breast pain, left Left shoulder pain Anxiety and depression Hypertension LAD (lymphadenopathy), axillary Mass of multiple sites of left breast Breast cancer, left Breast cancer, left Pulmonary emboli Breast cancer, left Encounter for insertion of venous access port LAD (lymphadenopathy), axillary Pulmonary emboli Breast cancer, left Breast cancer, left Encounter for education Breast cancer, left Encounter for insertion of venous access port Breast cancer, left Encounter for chemotherapy management Left thyroid nodule Chief Complaint PAIN IN BREAST AND B ACK LT BREAST PAIN BIRADS 4 LEFT BREAST BREAST MASS-LEFT & LEFT AXILLARY MASS NEW-BREAST CA MALIGNANT NEOPLASM OF LEFT BREAST MALIGNANT NEOPLASM OF LEFT BREAST hx pe 1WK NO LABS REVIEW ECHO/CT/BONE SCAN PORT PLACEMENT AND DISCUSS SURGERY INSERTION VASCULAR PORT RT POSS LT INSERTION VASCULAR PORT RT POSS LT ABNORMAL MAMMO REVIEW PET NO LABS CHEMO ED PORT PLACED 11/20/21 LABS NEW START SOB Nontoxic single thyroid nodule 2WKS LABS TOX CHECK 1WK LABS TREATMENT 2WKS LABS TOX CHECK MALIGNANT NEOPLASM OF LEFT BREAST 1WK LABS TREATMENT yeast infection Reason for Visit Breast pain, left Left shoulder pain Anxiety and depression Hypertension LAD (lymphadenopathy), axillary Mass of multiple sites of left breast Breast cancer, left Breast cancer, left Pulmonary emboli Breast cancer, left Encounter for insertion of venous access port LAD (lymphadenopathy), axillary Pulmonary emboli Breast cancer, left Breast cancer, left Encounter for education Breast cancer, left Encounter for insertion of venous access port Breast cancer, left Encounter for chemotherapy management Left thyroid nodule 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 Breast cancer, left CINV (chemotherapy-induced nausea and vomiting) Left thyroid nodule Breast cancer, left Encounter for chemotherapy management Left thyroid nodule Breast cancer, left Hypokalemia Left thyroid nodule Breast cancer, left Encounter for chemotherapy management Left thyroid nodule Chief Complaint PAIN IN BREAST AND B ACK LT BREAST PAIN BIRADS 4 LEFT BREAST BREAST MASS-LEFT & LEFT AXILLARY MASS NEW-BREAST CA MALIGNANT NEOPLASM OF LEFT BREAST MALIGNANT NEOPLASM OF LEFT BREAST hx pe 1WK NO LABS REVIEW ECHO/CT/BONE SCAN PORT PLACEMENT AND DISCUSS SURGERY INSERTION VASCULAR PORT RT POSS LT INSERTION VASCULAR PORT RT POSS LT ABNORMAL MAMMO REVIEW PET NO LABS CHEMO ED PORT PLACED 11/20/21 LABS NEW START SOB Nontoxic single thyroid nodule 2WKS LABS TOX CHECK 1WK LABS TREATMENT 2WKS LABS TOX CHECK MALIGNANT NEOPLASM OF LEFT BREAST 1WK LABS TREATMENT yeast infection Reason for Visit Breast pain, left Left shoulder pain Anxiety and depression Hypertension LAD (lymphadenopathy), axillary Mass of multiple sites of left breast Breast cancer, left Breast cancer, left Pulmonary emboli Breast cancer, left Encounter for insertion of venous access port LAD (lymphadenopathy), axillary Pulmonary emboli Breast cancer, left Breast cancer, left Encounter for education Breast cancer, left Encounter for insertion of venous access port Breast cancer, left Encounter for chemotherapy management Left thyroid nodule 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 Breast cancer, left CINV (chemotherapy-induced nausea and vomiting) Left thyroid nodule Breast cancer, left Encounter for chemotherapy management Left thyroid nodule Breast cancer, left Hypokalemia Left thyroid nodule Breast cancer, left Encounter for chemotherapy management Left thyroid nodule Chief Complaint BIRADS 4 LEFT BREAST BREAST MASS-LEFT & LEFT AXILLARY MASS NEW-BREAST CA MALIGNANT NEOPLASM OF LEFT BREAST MALIGNANT NEOPLASM OF LEFT BREAST hx pe 1WK NO LABS REVIEW ECHO/CT/BONE SCAN PORT PLACEMENT AND DISCUSS SURGERY INSERTION VASCULAR PORT RT POSS LT INSERTION VASCULAR PORT RT POSS LT ABNORMAL MAMMO REVIEW PET NO LABS CHEMO ED PORT PLACED 11/20/21 LABS NEW START SOB Nontoxic single thyroid nodule 2WKS LABS TOX CHECK 1WK LABS TREATMENT 2WKS LABS TOX CHECK 1WK LABS TREATMENT yeast infection 3WKS LABS TREATMENT Udenyca nausea & diarrhea Reason for Visit LAD (lymphadenopathy ), axillary Mass of multiple sites of left breast Breast cancer, left Breast cancer, left Pulmonary emboli Breast cancer, left Encounter for insertion of venous access port LAD (lymphadenopathy), axillary Pulmonary emboli Breast cancer, left Breast cancer, left Encounter for education Breast cancer, left Encounter for insertion of venous access port Breast cancer, left Encounter for chemotherapy management Left thyroid nodule 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 Breast cancer, left CINV (chemotherapy-induced nausea and vomiting) Left thyroid nodule Breast cancer, left Encounter for chemotherapy management Left thyroid nodule Breast cancer, left Hypokalemia Left thyroid nodule Breast cancer, left Encounter for chemotherapy management Left thyroid nodule Breast cancer, left Encounter for chemotherapy management Left thyroid nodule Chief Complaint CHEMO ED PORT PLACED 11/20/21 LABS NEW START SOB Nontoxic single thyroid nodule 2WKS LABS TOX CHECK 1WK LABS TREATMENT 2WKS LABS TOX CHECK 1WK LABS TREATMENT yeast infection 3WKS LABS TREATMENT nausea & diarrhea 3WKS LABS TREATMENT Udenyca 3WKS LABS [facility] Discuss Surgical Management N/V/D Reason for Visit Encounter for educat ion Breast cancer, left Encounter for insertion of venous access port Breast cancer, left Encounter for chemotherapy management Breast cancer, left Left thyroid nodule 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 CINV (chemotherapy-induced nausea and vomiting) Breast cancer, left Left thyroid nodule Encounter for chemotherapy management Breast cancer, left Left thyroid nodule Hypokalemia Breast cancer, left Left thyroid nodule Encounter for chemotherapy management Breast cancer, left Left thyroid nodule Encounter for chemotherapy management Breast cancer, left Left thyroid nodule Encounter for chemotherapy management Hypokalemia Hypomagnesemia Breast cancer, left Left thyroid nodule 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 Encounter for chemotherapy management Hypokalemia Hypomagnesemia Breast cancer, left Left thyroid nodule Breast cancer, left Chief Complaint 1WK LABS TREATMENT 2WKS LABS TOX CHECK 1WK LABS TREATMENT yeast infection 3WKS LABS TREATMENT nausea & diarrhea 3WKS LABS TREATMENT 3WKS LABS [facility] Discuss Surgical Management N/V/D Udenyca 2WKS LABS BREAST CANCER Reason for Visit Encounter for chemot herapy management Breast cancer, left Left thyroid nodule Hypokalemia Breast cancer, left Left thyroid nodule Encounter for chemotherapy management Breast cancer, left Left thyroid nodule Encounter for chemotherapy management Breast cancer, left Left thyroid nodule Encounter for chemotherapy management Hypokalemia Hypomagnesemia Breast cancer, left Left thyroid nodule 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 LT BREAST MASTECTOMY..... 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 LT BREAST MASTECTOMY..... LT BREAST MASTECTOMY..... DRAIN REMOVAL 4WKS LABS drain removal 2WKS LABS PERJETA/HERCEPTIN? 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 Encounter for chemotherapy management Hypokalemia Hypomagnesemia Breast cancer, left Left thyroid nodule Breast cancer, left Hypokalemia Post chemo evaluation Breast cancer, left Left thyroid nodule History of lymph node dissection of axilla Lymphedema Pulmonary emboli S/P left mastectomy Breast cancer, left History of lymph node dissection of axilla Lymphedema Pulmonary emboli S/P left mastectomy Hypokalemia Breast cancer, left Left thyroid nodule History of lymph node dissection of axilla Lymphedema Pulmonary emboli S/P left mastectomy Hypokalemia Iron deficiency Breast cancer, left Left thyroid nodule Hypokalemia Iron deficiency Breast cancer, left Left thyroid nodule Osteopenia after menopause Chief Complaint 3WKS LABS HER/PER 3WKS LABS HERCEPTIN,PERJETA 3WKS LABS HERCEPTIN/PERJETA HIGH RISK MEDS 3WKS LABS HER/PER 3WKS LABS HER/PER Amb Documentation venofer 3WKS LABS HER/PER NEW CARDIAC ONC PT Reason for Visit Hypokalemia Breast cancer, left Encounter for monoclonal antibody treatment for malignancy Breast cancer, left Left thyroid nodule Osteopenia after menopause Encounter for monoclonal antibody treatment for malignancy Breast cancer, left Left thyroid nodule Osteopenia after menopause Encounter for monoclonal antibody treatment for malignancy Breast cancer, left Left thyroid nodule Osteopenia after menopause Encounter for monoclonal antibody treatment for malignancy Breast cancer, left Left thyroid nodule Osteopenia after menopause Encounter for monoclonal antibody treatment for malignancy Breast cancer, left Left thyroid nodule Osteopenia after menopause Decreased cardiac ejection fraction Encounter for monitoring cardiotoxic drug therapy Hypertension Chief Complaint HIGH RISK MEDS 3WKS LABS HER/PER 3WKS LABS HER/PER Amb Documentation 3WKS LABS HER/PER NEW CARDIAC ONC PT 3WKS LABS HER/PER 3WKS LABS HER/PER venofer LONG-TERM MEDS Reason for Visit Encounter for monocl onal antibody treatment for malignancy Breast cancer, left Left thyroid nodule Osteopenia after menopause Encounter for monoclonal antibody treatment for malignancy Breast cancer, left Left thyroid nodule Osteopenia after menopause Encounter for monoclonal antibody treatment for malignancy Breast cancer, left Left thyroid nodule Osteopenia after menopause Decreased cardiac ejection fraction Encounter for monitoring cardiotoxic drug therapy Hypertension Prerenal azotemia Breast cancer, left Encounter for monitoring cardiotoxic drug therapy Breast cancer, left Chief Complaint 3WKS LABS HER/PER 3WKS LABS HER/PER Amb Documentation 3WKS LABS HER/PER NEW CARDIAC ONC PT 3WKS LABS HER/PER 3WKS LABS HER/PER LONG-TERM MEDS venofer 4WKS NO LABS/FLUSH SCREENING Reason for Visit Encounter for monocl onal antibody treatment for malignancy Breast cancer, left Left thyroid nodule Osteopenia after menopause Encounter for monoclonal antibody treatment for malignancy Breast cancer, left Left thyroid nodule Osteopenia after menopause Encounter for monoclonal antibody treatment for malignancy Breast cancer, left Left thyroid nodule Osteopenia after menopause Decreased cardiac ejection fraction Encounter for monitoring cardiotoxic drug therapy Hypertension Prerenal azotemia Breast cancer, left Encounter for monitoring cardiotoxic drug therapy Breast cancer, left Encounter for education Encounter for monitoring cardiotoxic drug therapy Breast cancer, left Chief Complaint 3MO LABS 1 Y FU Colonoscopy FLUSH Reason for Visit Encounter for monito ring cardiotoxic drug therapy Breast cancer, left Colon cancer screening Anxiety and depression Breast cancer, left Hypertension Osteopenia with high risk of fracture Pulmonary emboli Anticoagulant long-term use Colon cancer screening Pulmonary emboli Chief Complaint 3MO LABS 1 Y FU Colonoscopy FLUSH ABD PAIN Reason for Visit Encounter for monito ring cardiotoxic drug therapy Breast cancer, left Colon cancer screening Anxiety and depression Breast cancer, left Hypertension Osteopenia with high risk of fracture Pulmonary emboli Anticoagulant long-term use Colon cancer screening Pulmonary emboli Chief Complaint 3MO LABS 1 Y FU Colonoscopy FLUSH LAP APPY ACUTE APPENDICITIS ACUTE APPENDICITIS ACUTE APPENDICITIS Reason for Visit Encounter for monito ring cardiotoxic drug therapy Breast cancer, left Colon cancer screening Anxiety and depression Breast cancer, left Hypertension Osteopenia with high risk of fracture Pulmonary emboli Anticoagulant long-term use Colon cancer screening Pulmonary emboli Abdominal pain Acute appendicitis HINA (acute kidney injury) History of deep vein thrombosis Chief Complaint 3MO LABS 1 Y FU Colonoscopy FLUSH LAP APPY ACUTE APPENDICITIS ACUTE APPENDICITIS ACUTE APPENDICITIS POST SURGERY CONCERNS EORDER Amb Documentation Reason for Visit Encounter for monito ring cardiotoxic drug therapy Breast cancer, left Colon cancer screening Anxiety and depression Breast cancer, left Hypertension Osteopenia with high risk of fracture Pulmonary emboli Anticoagulant long-term use Colon cancer screening Pulmonary emboli HINA (acute kidney injury) History of deep vein thrombosis Abdominal pain Acute appendicitis HINA (acute kidney injury) Dizziness Shortness of breath Acute appendicitis Chief Complaint Colonoscopy LAP APPY ACUTE APPENDICITIS ACUTE APPENDICITIS ACUTE APPENDICITIS POST SURGERY CONCERNS EORDER Amb Documentation 6 M FU 2WK F/U Appy 07/12 FLUSH I34.0 Reason for Visit Anticoagulant long-t erm use Colon cancer screening Pulmonary emboli HINA (acute kidney injury) History of deep vein thrombosis Abdominal pain Acute appendicitis HINA (acute kidney injury) Dizziness Shortness of breath Acute appendicitis Decreased cardiac ejection fraction Encounter for monitoring cardiotoxic drug therapy Hypertension Acute appendicitis Chief Complaint Admit Date 6.MO LABS March 20, 2024 1 0:30am FLUSH June 12, 2024 2:00pm 6 M FU July 11, 2024 11: 02am Reason for Visit Admit Date Hypocalcemia March 20, 2024 1 0:30am Breast cancer, left March 20, 2024 1 0:30am History of deep vein thrombosis July 112024 11:02am Anxiety and depression July 11, 2024 11:02am Borderline type 2 diabetes mellitus [facility] 2024 11:02am Hypertension July 11, 2024 11: 02am Osteopenia with high risk of fracture [facility] 2024 11:02am Pain of left lower extremity July 11, 2024 11:02am Chief Complaint Admit Date 6 M FU July 11, 2024 11: 02am FLUSH July 24, 2024 2:00 pm sob August 10, 2024 5:0 0pm Reason for Visit Admit Date History of deep vein thrombosis July 112024 11:02am Anxiety and depression July 11, 2024 11:02am Borderline type 2 diabetes mellitus [facility] 2024 11:02am Hypertension July 11, 2024 11: 02am Osteopenia with high risk of fracture [facility] 2024 11:02am Pain of left lower extremity July 11, 2024 11:02am Chief Complaint Admit Date 6 M FU July 11, 2024 11: 02am sob August 10, 2024 5:0 0pm FLUSH September 18, 2024 2:30p m 6 MO - LABS September 18, 2024 2:41p m Reason for Visit Admit Date History of deep vein thrombosis July 112024 11:02am Anxiety and depression July 11, 2024 11:02am Borderline type 2 diabetes mellitus [facility] 2024 11:02am Hypertension July 11, 2024 11: 02am Osteopenia with high risk of fracture [facility] 2024 11:02am Pain of left lower extremity July 11, 2024 11:02am Nodule of chest wall September 18, 2024 2:41 pm Breast cancer, left September 18, 2024 2:41p m Osteopenia with high risk of fracture [facility] 2:41pm Additional Source Comments INFORMATION SOURCE (unrecogn ized section and content) DATE CREATED AUTHOR 10/12/2017 [facility] DATE CREATED AUTHOR AUTHOR'S ORGANIZ ATION 10/08/2024 [facility] Goals (unrecognized section and content) Goals may be documented in a n alternate sectionGoals may be documented in an alternate sectionGoals may be documented in an alternate sectionGoals may be documented in an alternate sectionGoals may be documented in an alternate sectionGoals may be documented in an alternate sectionGoals may be documented in an alternate sectionGoals may be documented in an alternate sectionGoals may be documented in an alternate sectionGoals may be documented in an alternate sectionGoals may be documented in an alternate sectionGoals may be documented in an alternate section Care Teams (unrecognized sec tion and content) Team Status: Active Member Role Status Dates Dr. Michael Corcoran MD Family Provider Active Dr. Michael Corcoran MD Primary Care Provider Active Team Status: Inactive Member Role Status Dates Dr. Michael Corcoran MD Primary Care Provider, Refer ring Provider Active Dr. Haresh Saenz MD Attending Provider Active Team Status: Active Member Role Status Dates Dr. Michael Corcoran MD Primary Care Provider Active Dr. Shahriar Tucker MD Attending Provider Active Team Status: Inactive Member Role Status Dates Dr. Michael Corcoran MD Primary Care Provider Active Dr. Melyssa Saab MD Attending Provider Active Dr. Haresh Saenz MD Referring Provider Active Team Status: Active Member Role Status Dates Dr. Michael Corcoran MD Primary Care Provider Active Dr. Melyssa Saab MD Attending Provi tressa, Referring Provider, Other Provider Active Team Status: Active Member Role Status Dates Dr. Michael Corcoran MD Primary Care Provider Active Dr. Melyssa Saab MD Admit Provider, Attending Provider, Referring Provider, Other Provider Active Team Status: Inactive Member Role Status Dates Dr. Michael Corcoran MD Primary Care Provider, Refer ring Provider Active Dr. Melyssa Saab MD Attending Provider Active Team Status: Active Member Role Status Dates Dr. Michael Corcoran MD Primary Care Provider Active Dr. Shahriar Tucker MD Attending Provider Active Dr. Haresh Saenz MD Referring Provider Active Team Status: Active Member Role Status Dates Dr. Michael Corcoran MD Primary Care Provider Active Dr. Haresh Saenz MD Attending Provider, Referring Pro vider Active Team Status: Inactive Member Role Status Dates Dr. Michael Corcoran MD Primary Care Provider Active Dr. Melyssa Saab MD Attending Provider, Referring Provider Active Team Status: Inactive Member Role Status Dates Dr. Michael Corcoran MD Primary Care Provider Active Dr. Arun Kim DO Attending Provider, Emergency Pr ovider Active Team Status: Inactive Member Role Status Dates Dr. Michael Corcoran MD Primary Care Provider Active Dr. Melyssa Saab MD Admit Provider, Attending Provider, Referring Provider Active Team Status: Inactive Member Role Status Dates Dr. Michael Corcoran MD Primary Care Provider Active Dr. Haresh Saenz MD Attending Provider, Referring Pro vider Active Team Status: Inactive Member Role Status Dates Dr. Michael Corcoran MD Primary Care Provider, Refer ring Provider Active Miriam Meraz REDRYING MACHINE OPERATOR, REDRYING MACHINE OPERATOR-C Attending Provider Active Team Status: Inactive Member Role Status Dates Dr. Michael Corcoran MD Primary Care Provider, Refer ring Provider Active Dr. Haresh Saenz MD Active Dr. Veronica Schrader MD Attending Provider Active Team Status: Inactive Member Role Status Dates Dr. Michael Corcoran MD Primary Care Provider, Refer ring Provider Active Dr. Haresh Saenz MD Active Miriam Meraz REDRYING MACHINE OPERATOR, REDRYING MACHINE OPERATOR-C Attending Provider Active Team Status: Inactive Member Role Status Dates Dr. Michael Corcoran MD Primary Care Provider, Refer ring Provider Active Dr. Shahriar Tucker MD Attending Provider Active Team Status: Active Member Role Status Dates Dr. Michael Corcoran MD Primary Care Provider Active Agnes Rick Attending Provider Active Team Status: Inactive Member Role Status Dates Dr. Michael Corcoran MD Primary Care Provider Active Miriam Meraz REDRYING MACHINE OPERATOR, REDRYING MACHINE OPERATOR-C Attending Provider, Referring Provider Active Team Status: Inactive Member Role Status Dates Dr. Michael Corcoran MD Primary Care Provider Active Dr. Haresh Saenz MD Attending Provider Active Team Status: Active Member Role Status Dates Dr. Michael Corcoran MD Primary Care Provider Active Dr. Shahriar Tucker MD Attending Provider, Referring Pro vider Active Team Status: Inactive Member Role Status Dates Dr. Michael Corcoran MD Primary Care P rovider, Attending Provider, Referring Provider Active Team Status: Active Member Role Status Dates Dr. Michael Corcoran MD Primary Care Provider, Refer ring Provider Active Dr. Melyssa Saab MD Attending Provider, Other Pro vider Active Team Status: Inactive Member Role Status Dates Dr. Michael Corcoran MD Primary Care Provider Active Dr. Thao Gustafson DO Emergency Provider Active Team Status: Active Member Role Status Dates Dr. Michael Corcoran MD Primary Care Provider Active Dr. Thao Gustafson DO Emergency Provider Active Dr. Bertram Ibarra MD Attending Provider, Other Provider Active Team Status: Active Member Role Status Dates Dr. Michael Corcoran MD Primary Care Provider Active Dr. Thao Gustafson DO Emergency Provider Active Dr. Bertram Ibarra MD Admit Provid er, Attending Provider, Other Provider Active Team Status: Inactive Member Role Status Dates Dr. Michael Corcoran MD Primary Care Provider Active Dr. Thao Gustafson DO Emergency Provider Active Dr. Bertram Ibarra MD Admit Provider, Attending Provider Active Team Status: Inactive Member Role Status Dates Dr. Michael Corcoran MD Primary Care Provider, Refer ring Provider Active JANINE Evans Attending Provider Active Team Status: Inactive Member Role Status Dates Dr. Michael Corcoran MD Primary Care Provider Active JANINE Evans Attending Provider, Referring Prov ider Active Team Status: Inactive Member Role Status Dates Dr. Michael Corcoran MD Primary Care Provider Active Dr. Bertram Ibarra MD Attending Provider, Referr ing Provider Active Team Status: Inactive Member Role Status Dates Dr. Michael Corcoran MD Primary Care Provider Active Dr. Shahriar Tucker MD Attending Provider, Referring Pro vider Active Team Status: Active Member Role Status Dates Dr. Michael Corcoran MD Primary Care Provider Active Team Status: Inactive Member Role Status Dates Dr. Michael Corcoran MD Primary Care Provider Active Start: March 20, 2024 End: March 20, 2024 Dr. Michael Corcoran MD Referring Provider Active Start: March 20, 2024 End: March 20, 2024 Dr. Haresh Saenz MD Attending Provider Active S tart: March 20, 2024 End: March 20, 2024 Team Status: Active Member Role Status Dates Dr. Michael Corcoran MD Primary Care Provider Active Start: June 12, 2024 Dr. Haresh Saenz MD Attending Provider Active S tart: June 12, 2024 Dr. Haresh Saenz MD Referring Provider Active S tart: June 12, 2024 Team Status: Inactive Member Role Status Dates Dr. Michael Corcoran MD Primary Care Provider Active Start: July 11, 2024 End: July 11, 2024 Dr. Michael Corcoran MD Attending Provider Active Start: July 11, 2024 End: July 11, 2024 Dr. Michael Corcoran MD Referring Provider Active Start: July 11, 2024 End: July 11, 2024 Team Status: Active Member Role Status Dates Dr. Michael Corcoran MD Primary Care Provider Active Start: July 24, 2024 Dr. Haresh Saenz MD Attending Provider Active S tart: July 24, 2024 Dr. Haresh Saenz MD Referring Provider Active S tart: July 24, 2024 Team Status: Inactive Member Role Status Dates Dr. Michael Corcoran MD Primary Care Provider Active Start: August 10, 2024 End: August 10, 2024 Marcin Boyer MD Emergency Provider Active Star t: August 10, 2024 End: August 10, 2024 Team Status: Inactive Member Role Status Dates Dr. Michael Corcoran MD Primary Care Provider Active Start: August 10, 2024 End: August 10, 2024 Marcin Boyer MD Attending Provider Active Star t: August 10, 2024 End: August 10, 2024 Marcin Boyer MD Emergency Provider Active Star t: August 10, 2024 End: August 10, 2024 Team Status: Active Member Role Status Dates Dr. Michael Corcoran MD Primary Care Provider Active Start: September 18, 2024 Dr. Haresh Saenz MD Attending Provider Active S tart: September 18, 2024 Dr. Haresh Saenz MD Referring Provider Active S tart: September 18, 2024 Team Status: Inactive Member Role Status Dates Dr. Michael Corcoran MD Primary Care Provider Active Start: September 18, 2024 End: September 18, 2024 Dr. Michael Corcoran MD Referring Provider Active Start: September 18, 2024 End: September 18, 2024 Miriam Meraz NP, REDRYING MACHINE OPERATOR-C Attending Provider Active Start: September 18, 2024 End: September 18, 2024 FOR RECORDS PERTAINING TO PATIENTS WHO ARE [...] BE BASED ON THE PRIMARY CLINICAL RECORDS. [employer] provides no warranty or guarantee of the accuracy or completeness of information in this document.
--- NOTE | 2024-10-11 07:32 | CT_ITS ---
PROCEDURE: CHEST WITH CONTRAST 10/11/2024 REASON FOR EXAM: HISTORY OF BREAST CANCER; CHEST WALL NODULARITY TECHNIQUE: CHEST WITH CONTRAST Coronal and Sagittal reconstruction series were provided. CONTRAST: Isovue-350. VOLUME: 100 mL One or more dose reduction techniques were used (e.g., Automated exposure control, adjustment of the mA and/or kV according to patient size, use of iterative reconstruction technique). RADIATION DOSE SUMMARY: CTDlvol: 16.53 mGy DLP: 560 mGycm COMPARISON: PET-CT on 11/18/2021. Chest radiograph on 08/10/2024. FINDINGS: Right Port-A-Cath is in good position with its tip in the superior vena cava. Again are noted changes from prior left mastectomy. Two heterogeneously enhancing nodules are noted in the surgical bed measuring 2 and 1.9 cm respectively, suspicious for neoplastic pathology. Mild bilateral basilar atelectatic pulmonary changes. Multinodular thyroid goiter with the largest nodule measuring 6 mm. No tracheal narrowing or deviation is seen. Right renal simple cyst measuring 3.5 cm. Mild coronary artery calcifications are noted. Mild diffuse spondylosis. Normal enhancement of the main pulmonary artery and right and left pulmonary arteries. Normal enhancement of the bilateral peripheral pulmonary arteries. There is no demonstrated pulmonary embolism. Normal thoracic aorta and visualized great vessels. There is no demonstrated aortic dissection. Normal heart and pericardium. Normal mediastinum. Normal hilar regions. Normal visualized trachea and bronchi. The remaining lungs are well expanded. Normal remaining pulmonary parenchyma. Normal pleura. Normal remaining visualized upper abdomen. CT/Chest WITH Contrast IMPRESSION: Coronary artery calcification (CAC) is present. Right Port-A-Cath is in good position with its tip in the superior vena cava. Again are noted changes from prior left mastectomy. Two heterogeneously enhancing nodules are noted in the surgical bed measuring 2 and 1.9 cm respectively, suspicious for neoplastic pathology. Mild bilateral basilar atelectatic pulmonary changes. Multinodular thyroid goiter with the largest nodule measuring 6 mm. No trachea l narrowing or deviation is seen. Right renal simple cyst measuring 3.5 cm. Mild coronary artery calcifications are noted. Reading Location[facility]
[2024-10-11] MEDS: 0.9% Saline Lock 10 ML Syringe IV (07:52)
== END | disposition home or self-care (01) ==
PROVIDERS: PCP Internal Medicine; Referring Provider Nurse Practitioner Family; Visit Provider Nurse Practitioner Family
DX: C50.212 Malignant neoplasm of upper-inner quadrant of left female breast (principal); R22.2 Localized swelling, mass and lump, trunk; Z17.0 Estrogen receptor positive status [ER+]
CPT/HCPCS: 71260; Q9967; A4216

== ENCOUNTER → 2024-10-24 | Outpatient (CLI) | payer MEDICARE, SELFPAY ==
--- NOTE | 2024-10-24 14:23 | BRBX_PTH ---
PATIENT: PAUL BARONE LOC: [facility] U#:[id number] AGE/SX: 78/F ROOM: RE10/24/[address]: Dr. Melyssa Saab MD : 1945 BED: DIS: 10/24/2024 SPEC #: [id number] RECD: 10/24/24 15:36 STATUS: ARSENIO REQ #: [id number] LIONEL: 10/24/24 14:[address]: Melyssa Saab DEPT: SURGICAL PATHOLOGY RECD BY: Cory Batres ENTERED: 10/24/24 16:10 SP TYPE: BREAST BX OTHR DR: Dr. Michael Corcoran MD Tissues: A - Left breast, NOS Procedures: Immunohistochemical Stains Surgery Specimen Level IV IHC Stain ADDITIONAL HEADER OPERATION: Biopsy nodules left mastectomy site / chest wall PRE-OP DIAGNOSIS: Biopsy nodule left mastectomy site / chest wall TISSUE SUBMITTED: A- Left mastectomy site / chest wall nodule Ischemic Time: Unknown Fixation Time: 28 hours, 57 minutes MICROSCOPIC DIAGNOSIS A. 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 - ER: positive (20%, intermediate intensity) - FL: negative - [id number]: positive (3+) Note: The tumor cells are CK7 and RANDALL-3 positive, consistent with the history of invasive ductal carcinoma of the breast. MICROSCOPIC DESCRIPTION Slides are reviewed. All matched controls reacted appropriately. These tests were developed and their performance characteristics determined by [facility]. They may not have been cleared or approved by the U.S. Food and Drug Administration. The FDA has determined that such clearance or approval is not necessary.? The above immunohistochemical/dualISH?markers are reviewed by the Pathologist. GROSS DESCRIPTION A. Received in formalin labeled with the patient's name and date of . Designated as chest wall/mastectomy site nodules are 2 eric-yellow tissue cores, 1.3-1.4 cm in length by 0.1 cm in diameter. Entirely submitted in 1 cassette. Cold ischemic time: UnknownFormalin fixation time: 28 hours, 57 minutes UT 10/25/2024 CPT:[id number]
== END | disposition home or self-care (01) ==
PROVIDERS: PCP Internal Medicine; Referring Provider Surgery; Visit Provider Surgery
DX: R22.2 Localized swelling, mass and lump, trunk (principal)
CPT/HCPCS: 88305; 88341; 88342

== ENCOUNTER 2024-11-02 07:58 | Emergency (ER) | payer MEDICARE, SELFPAY ==
[2024-11-02 07:59] VITALS: BP 139/81; PULSE 91; RESP 14; TEMP 37.1; O2SAT 93; BMI 37.9
--- NOTE | 2024-11-02 08:12 | EDS_ITS ---
HPI History of Present Illness Chief Complaint: Cough Informant: patient and family Narrative Narrative: 78-year-old female has had sore throat followed by cough, chest congestion, and dyspnea when having coughing fits that started the day before yesterday. No fe vers or chills. No headaches. No nausea, vomiting, abdominal pain, or other systemic symptoms. She and daughter state that she has a history of breast cancer that was in remission and they just found out from oncology that she has had recurrence and they are in the process of getting testing to stage it, she is not currently on any chemotherapy/treatment for it because of that. She states she has a history of asthma but does not necessarily feel like she is wheezing or having an asthma flareup. She denies orthopnea or edema in her legs that is new. [facility] Medical History Nodule of chest wall Pain of left lower extremity Shingles Flu vaccine need Venous insufficiency of both lower extremities Cardiology follow-up encounter Osteopenia with high risk of fracture Colon cancer screening Cataract (lens) fragments in eye following cataract surgery, bilateral Screening for breast cancer Encounter for monitoring cardiotoxic drug therapy Decreased cardiac ejection fraction Encounter for monitoring cardiotoxic drug therapy Port-A-Cath in place Hypokalemia 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 CINV (chemotherapy-induced nausea and vomiting) Encounter for chemotherapy management Left thyroid nodule Encounter for education Wears dentures Wears glasses Anxiety Pulmonary embolism DVT (deep venous thrombosis) Non-smoker History of echocardiogram History of stress test Hypertension Breast cancer, left Abnormal mammogram of left breast Anxiety and depression Breast pain, left Left shoulder pain Encounter for screening for COVID-19 URI (upper respiratory infection) Chest pain Fractures involving multiple body regions Breast lump Blood clot in vein Vision problems Pneumonia Kidney stones H/O emotional problems Chronic bronchitis Asthma Arthritis Environmental allergies Home Medications ?Medication ?Instructions ?Recorded ?Last Taken ?Type multivitamin 1 tab PO DAILY 07/15/2206/17 History loratadine 10 mg tablet (Claritin) 10 mg PO DAILY PRN allergies 08/26/22 07/17/22 History biotin 1 mg capsule 1 mg PO DAILY 10/29/2207/10 History lidocaine-prilocaine 2.5 %-2.5 % 1 applic topical ONCE PRN port 01/19/23 Unknown Rx topical cream access 30 days #30 grams Handicap Placard #1 ea 05/24/23 Unknown Rx Compression arm sleeve 20-30 mmHg #2 ea 06/28/23 Unkno wn Rx atorvastatin 40 mg tablet 40 mg PO DAILY #90 tabs 09/16 05/11 Unknown Rx magnesium citrate 300 ml PO X1 #1 BOTTLE 11/09 Unknown Rx compress.stocking,knee,reg,lrg #2 ea 01/12/24 Unknown Rx paroxetine HCl 20 mg tablet (Paxil) 20 mg PO DAILY #90 tabs 05/18/24 Unknown Rx apixaban 5 mg tablet (Eliquis) See Rx Instructions .[place] 07/11/24 Unknown Rx .COMPLEX #60 tabs amlodipine 10 mg tablet 10 mg PO DAILY #90 tabs 08/17 06/12 Unknown Rx anastrozole 1 mg tablet See Rx Instructions .Route 0 09/18/24 Unknown Rx .COMPLEX #90 tabs albuterol sulfate 90 mcg/actuation 1 - 2 puff inhalati on Q4H PRN PRN 11/02/24 Unknown Rx aerosol inhaler (Ventolin HFA) Wheezing ##1 Allergy/AdvReac Type Severity Reaction Status Date / Time Penicillins Allergy Hives Verified 11/02/24 07:59 Family History Father Alcoholism Asthma Mother Anxiety Blood clot in vein Myocardial infarction Grandmother Blood clot in vein Myocardial infarction Brother Myocardial infarction Aunt Breast cancer Grandmother CVA (cerebral vascular accident) Daughter Suicide attempt Other Colon cancer Surgical History History of appendectomy Hx of left mastectomy History of lymph node dissection of axilla S/P left mastectomy Hx of tubal ligation History of hysterectomy History of tonsillectomy History of shoulder surgery Social History Smoking Status: Never smoker alcohol intake: never substance use type: does not use caffeine: Yes Type: carbonated beverages Number of servings: 2 what type of physical activity do you participate in: none seatbelt use: always do you feel safe at home: Yes ROS ROS ED Constitutional Constitutional ED: Denies chills or fever(s) Eyes Eyes: Denies change in vision or diplopia ENT ENT ED: Reports nasal congestion and sore throat; Denies ear pain Cardiovascular Cardiovascular: Denies chest pain, orthopnea or palpitations Respiratory/Chest Respiratory/Chest: Reports chest congestion, cough and dyspnea; Denies orthopnea or sputum Gastrointestinal Gastrointestinal: Denies abdominal pain, diarrhea, nausea or vomiting Genitourinary Genitourinary ED: Denies dysuria or hematuria Musculoskeletal Musculoskeletal: Denies back pain or neck pain Integumentary Denies abscess or rash Neurologic Neurologic: Denies headache(s), paresthesias or weakness Psychiatric Psychiatric: Denies anxiety or suicidal thoughts EXAM Physical Exam Const Vital Signs: 11/02/24 07:59 11/02/24 08:27 Temperature 98.7 F Temperature Source Oral Pulse Rate 91 Respiratory Rate 14 Respiratory Effort Normal Respiratory Depth Normal Respiratory Pattern Normal Blood Pressure 139/81 H Blood Pressure Mean 100 Pulse Ox 93 Oxygen Delivery Method Room Air Room Air Positive well nourished and well developed General Appearance ED: well developed and NAD HEENT Reports moist mucous membranes HEENT Narrative: Limited view of posterior oropharynx, maybe mild erythema but no exudates, asymmetry, trismus, or stridor. normocephalic and atraumatic Eyes PERRL and EOMs intact bilaterally Neck full ROM, no lymphadenopathy, supple, no meningeal signs and no JVD Resp normal respiratory effort and clear to auscultation bilaterally Resp Narrative: Initially coarse breath sounds when patient coughs and clears her throat, they clear. Cardio regular rate, regular rhythm and no murmurs Rate: Negative for tachycardic GI non-tender and non-distended Auscultation: normoactive bowel sounds Palpation: soft Back/Spine no CVA tenderness General Back: other FROM Extremity normal to inspection General Extremety ED: Negative for edema, pulses abnormal or tenderness General Extremity: Negative for edema or pulses abnormal Neuro oriented x3, CN's II-XII intact bilaterally and no sensory deficits noted Sensorium / Orientation: awake and alert Motor Exam: strength 5/5 throughout Psych mental status grossly normal Skin no rashes or lesions noted and no wounds MDM MDM MDM Narrative Medical decision making narrative: Clinically I think this is more of a bronchitis picture, since most of her abnormal lung sounds clear when she coughs and clears her throat. We obtained a two-view chest x-ray, my interpretation it is normal with no signs of pneumonia, radiology was in agreement. Then her swabs came back, and she is positive for COVID. Given this, certainly no antibiotics are indicated, we discussed that she is in the window for Paxlovid, but given that she is on apixaban because of pulmonary embolus, current recommendations on Paxlovid include discontinuing apixaban and replacing it with Lovenox injections and she would also have to discontinue her atorvastatin temporarily. She does not want to do this, namely the Lovenox injections. Therefore she would prefer not to do Paxlovid which I think is fine although she would qualify for it otherwise. Therefore supportive care instructions are given as well as a prescription for albuterol inhaler which she is out of. She does have a diagnosis of chronic bronchitis she is not sure how she got this, it was put on her chart by an [facility] HUMAN RESOURCE STATISTICIAN, she has never been told that she has COPD before, and she does not currently have symptoms or findings of a true COPD exacerbation so I am not going to put her on steroids at this time since she is not hypoxic as well. They do have a pulse ox to watch her oxygen levels at home, given other appropriate instructions and reasons to return they are comfortable with that plan. Radiography Diagnostic Testing: Clinical Impression(s) from Imaging Studies Chest X-Ray 11/02/24 09:25 IMPRESSION: No focal consolidation. Reading Location: [facility] Discharge Plan Triage Chief Complaint: Cough ED Provider: Sabino Whitman Dx/Rx/DC Orders Clinical Impression: Acute bronchitis due to COVID-19 virus Instructions: Coronavirus Disease 2019 (COVID-19): Caring for Yourself or Others Prescriptions: Continued loratadine [Claritin] 10 mg tablet 10 mg PO DAILY PRN (Reason: allergies) multivitamin Tablet 1 tab PO DAILY biotin 1 mg capsule 1 mg PO DAILY (DME) compress.stocking,knee,reg,lrg Misc See Rx Instructions .MEDSUPPLY Qty: 2 1RF Rx Instructions: wear daily for venous insufficiency 20-30 mmHg Eliquis 5 mg tablet See Rx Instructions .ROUTE .COMPLEX Qty: 60 3RF Dose Instruction: Take 1 tablet by mouth twice daily Patient Comments: stop 3 days prior to procedure Rx Instructions: Take 1 tablet by mouth twice daily anastrozole 1 mg tablet See Rx Instructions .ROUTE .COMPLEX Qty: 90 3RF Dose Instruction: Take 1 tablet by mouth once daily Rx Instructions: Take 1 tablet by mouth once daily albuterol sulfate [Ventolin HFA] 90 mcg/actuation HFA aerosol inhaler 1 - 2 puff inhalation Q4H PRN PRN (Reason: Wheezing) Qty: 1 0RF Rx Instructions: may substitute for different brand of albuterol if needed magnesium citrate Solution 300 ml PO X1 Qty: 1 0RF lidocaine-prilocaine 2.5-2.5 % cream 1 applic topical ONCE PRN (Reason: port access) 30 Days Qty: 30 2RF (DME) Handicap Placard See Rx Instructions .ROUTE .MEDSUPPLY Qty: 1 0RF Rx Instructions: As directed, length of time 3 years (DME) Compression arm sleeve 20-30 mmHg See Rx Instructions .Route .MEDSUPPLY Qty: 2 4RF Rx Instructions: As directed atorvastatin 40 mg tablet 40 mg PO DAILY Qty: 90 4RF paroxetine HCl [Paxil] 20 mg tablet 20 mg PO DAILY Qty: 90 1RF amlodipine 10 mg tablet 10 mg PO DAILY Qty: 90 3RF Primary Care Provider: Michael Corcoran Referrals: Michael Corcoran MD [Primary Care Provider] - As Needed Activity Restrictions/Additional Instructions: Try to get a home portable pulse oximeter and closely watch your oxygen levels periodically. If you stay below 90% for more than a minute or so, and/or you are feeling like your breathing is getting worse, return to the emergency department for further evaluation. Currently, CDC recommendations state that you should stay home through day 5 of symptoms, then as long as symptoms are improving, if you need to go to work or somewhere else you may for days 6-10 as long as you are wearing a mask the entire time. If you are feeling better after day 10 you may resume life is normal. Print Language: Iranian Disposition Disposition: Home, Self Care
--- NOTE | 2024-11-02 09:25 | RAD_ITS ---
EXAM: XR Chest, 2 Views CLINICAL INDICATION: COUGH/SOB TECHNIQUE: Frontal and lateral views of the chest. COMPARISON: No relevant prior studies available. FINDINGS: LUNGS AND PLEURAL SPACES: No focal consolidation. HEART: Unremarkable. No cardiomegaly. MEDIASTINUM: Unremarkable. Normal mediastinal contour. BONES/JOINTS: Unremarkable. No acute fracture. TUBES, LINES AND DEVICES: Right-sided Mediport with the distal tip in the SVC. No pneumothorax. RAD/Chest PA and Lateral IMPRESSION: No focal consolidation. Reading [facility]
[2024-11-02 09:49] VITALS: O2SAT 97
[2024-11-02 09:53] VITALS: BP 129/67; PULSE 78; RESP 16; TEMP 36.6; O2SAT 93
== END 2024-11-02 09:54 | disposition home or self-care (01) ==
PROVIDERS: Emergency Provider Emergency Medicine; PCP Internal Medicine; Visit Provider Emergency Medicine
DX: U07.1 COVID-19 (principal); C50.919 Malignant neoplasm of unspecified site of unspecified female breast; J20.8 Acute bronchitis due to other specified organisms; I10 Essential (primary) hypertension; Z86.718 Personal history of other venous thrombosis and embolism; Z86.711 Personal history of pulmonary embolism
CPT/HCPCS: 71046; 87631; 87651; 99282

== ENCOUNTER 2024-11-02 14:08 | Emergency (ER) | payer MEDICARE, SELFPAY ==
[2024-11-02] VITALS (12 sets, daily range): BP systolic 129–159; BP diastolic 63–82; PULSE 26–94; RESP 14–32; TEMP 36.6–37.4; O2SAT 2–100; BMI 39.2
--- NOTE | 2024-11-02 14:40 | ED.VIS.DYS ---
HPI History of Present Illness Chief Complaint: Shortness of Breath Informant: patient and family Narrative Narrative: 78-year-old female that was seen here by myself several hours ago and diagnosed with COVID-19. Daughter states she went home and had some coughing fits and was dyspneic to the point where she went to get her pulse oximeter and checked her and for several minutes she maintained in the 80s on room air. She is not on home oxygen. The patient states right now she does not feel dyspneic. The daughter states she feels like if she could cough something up it might help. The patient states she has no other new symptoms and feels fine right now. She had no chest discomfort, lightheadedness, or other new symptoms. She basically has had sore throat and cough and chest congestion for the last couple days. [facility] Medical History Nodule of chest wall Pain of left lower extremity Shingles Flu vaccine need Venous insufficiency of both lower extremities Cardiology follow-up encounter Osteopenia with high risk of fracture Colon cancer screening Cataract (lens) fragments in eye following cataract surgery, bilateral Screening for breast cancer Encounter for monitoring cardiotoxic drug therapy Decreased cardiac ejection fraction Encounter for monitoring cardiotoxic drug therapy Port-A-Cath in place Hypokalemia 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 CINV (chemotherapy-induced nausea and vomiting) Encounter for chemotherapy management Left thyroid nodule Encounter for education Wears dentures Wears glasses Anxiety Pulmonary embolism DVT (deep venous thrombosis) Non-smoker History of echocardiogram History of stress test Hypertension Breast cancer, left Abnormal mammogram of left breast Anxiety and depression Breast pain, left Left shoulder pain Encounter for screening for COVID-19 URI (upper respiratory infection) Chest pain Fractures involving multiple body regions Breast lump Blood clot in vein Vision problems Pneumonia Kidney stones H/O emotional problems Chronic bronchitis Asthma Arthritis Environmental allergies Home Medications ?Medication ?Instructions ?Recorded ?Last Taken ?Type multivitamin 1 tab PO DAILY 07/15/22 07/11/23 History loratadine 10 mg tablet (Claritin) 10 mg PO DAILY PRN allergies 08/26/22 07/17/22 History biotin 1 mg capsule 1 mg PO DAILY 10/29/22 07/11/23 History lidocaine-prilocaine 2.5 %-2.5 % 1 applic topical ONCE PRN port 01/19/23 Unknown Rx topical cream access 30 days #30 grams Handicap Placard #1 ea 05/24/23 Unknown Rx Compression arm sleeve 20-30 mmHg #2 ea 06/28/23 Unknown Rx atorvastatin 40 mg tablet 40 mg PO DAILY #90 tabs 09/27/23 Unknown Rx magnesium citrate 300 ml PO X1 #1 BOTTLE 11/10/23 Unknown Rx compress.stocking,knee,reg,lrg #2 ea 01/12/24 Unknown Rx paroxetine HCl 20 mg tablet (Paxil) 20 mg PO DAILY #90 tabs 05/18/24 Unknown Rx apixaban 5 mg tablet (Eliquis) See Rx Instructions .Route 07/11/24 Unknown Rx .COMPLEX #60 tabs amlodipine 10 mg tablet 10 mg PO DAILY #90 tabs 09/06/24 Unknown Rx anastrozole 1 mg tablet See Rx Instructions .Route 09/18/24 Unknown Rx .COMPLEX #90 tabs albuterol sulfate 90 mcg/actuation 1 - 2 puff inhalation Q4H PRN PRN 11/02/24 Unknown Rx aerosol inhaler (Ventolin HFA) Wheezing ##1 dexamethasone 6 mg tablet 6 mg PO DAILY #4 tabs 11/02/24 Unknown Rx Allergy/AdvReac Type Severity Reaction Status Date / Time Penicillins Allergy Hives Verified 11/02/24 14:10 Family History Father Alcoholism Asthma Mother Anxiety Blood clot in vein Myocardial infarction Grandmother Blood clot in vein Myocardial infarction Brother Myocardial infarction Aunt Breast cancer Grandmother CVA (cerebral vascular accident) Daughter Suicide attempt Other Colon cancer Surgical History History of appendectomy Hx of left mastectomy History of lymph node dissection of axilla S/P left mastectomy Hx of tubal ligation History of hysterectomy History of tonsillectomy History of shoulder surgery Social History Smoking Status: Never smoker alcohol intake: never substance use type: does not use caffeine: Yes Type: carbonated beverages Number of servings: 2 what type of physical activity do you participate in: none seatbelt use: always do you feel safe at home: Yes ROS ROS ED Constitutional Constitutional ED: Denies chills or fever(s) Eyes Eyes: Denies change in vision or diplopia ENT ENT ED: Reports sore throat; Denies rhinorrhea Cardiovascular Cardiovascular: Denies chest pain or palpitations Respiratory/Chest Respiratory/Chest: Reports chest congestion, cough and other Details: Short of breath earlier especially with bronchospasm see HPI Gastrointestinal Gastrointestinal: Denies abdominal pain, diarrhea, nausea or vomiting Genitourinary Genitourinary ED: Denies dysuria or hematuria Musculoskeletal Musculoskeletal: Denies back pain or neck pain Integumentary Denies abscess or rash Neurologic Neurologic: Denies headache(s), paresthesias or weakness Psychiatric Psychiatric: Denies anxiety or suicidal thoughts EXAM Physical Exam Const Vital Signs: 11/02/24 14:08 11/02/24 14:11 11/02/24 14:25 Temperature 97.8 F Temperature Source Temporal Pulse Rate 86 Respiratory Rate 14 Respiratory Effort Respiratory Depth Respiratory Pattern Blood Pressure 129/63 H Blood Pressure Mean 85 Pulse Ox 82 97 100 Oxygen Delivery Method Room Air Nasal Cannula Nasal Cannula Oxygen Flow Rate (L/min) 4 4 11/02/24 14:28 11/02/24 14:31 11/02/24 14:50 Temperature Temperature Source Pulse Rate 86 91 Respiratory Rate 28 H 24 H Respiratory Effort Short of Breath Respiratory Depth Shallow Respiratory Pattern Tachypnea Blood Pressure 146/69 H Blood Pressure Mean 94 Pulse Ox 100 Oxygen Delivery Method Nasal Cannula Nasal Cannula Oxygen Flow Rate (L/min) 2 2 11/02/24 15:08 Temperature 98.7 F Temperature Source Oral Pulse Rate 94 Respiratory Rate 32 H Respiratory Effort Respiratory Depth Respiratory Pattern Blood Pressure 159/64 H Blood Pressure Mean 95 Pulse Ox 94 Oxygen Delivery Method Room Air Oxygen Flow Rate (L/min) Positive well nourished, well developed and obese Constitutional Narrative: Well-appearing converses in full sentences General Appearance ED: well developed and NAD Nutritional Appearance: obese HEENT Reports moist mucous membranes normocephalic and atraumatic Eyes PERRL and EOMs intact bilaterally Neck full ROM and supple Resp normal respiratory effort Resp Narrative: Few diffuse expiratory transmitted upper airway sounds but otherwise clear and breathing without distress Cardio regular rate, regular rhythm and no murmurs GI non-tender and non-distended Auscultation: normoactive bowel sounds Palpation: soft Back/Spine no CVA tenderness General Back: other FROM Extremity normal to inspection General Extremety ED: Negative for edema, pulses abnormal or tenderness General Extremity: Negative for edema or pulses abnormal Neuro oriented x3, CN's II-XII intact bilaterally and no sensory deficits noted Sensorium / Orientation: awake and alert Motor Exam: strength 5/5 throughout Skin no rashes or lesions noted and no wounds MDM MDM MDM Narrative Medical decision making narrative: In triage patient was 87% room air, they put her on a nasal cannula at 4 L we backed it down, currently on 2 L at 99%. I do not think this is indicative of a PE, I think this is more likely to be mucous plugging if anything. Additionally, she is already anticoagulated making PE unlikely to develop. I discussed options with the patient including an albuterol treatment which we did, I offered admission, she prefers to go home if she can. I was able to secure her oxygen to go home with, and given that we will start her on Decadron x 5d, first dose given here. Management Discussion w/another healthcare provider: dope and fabric worker/Case management Additional Tests and Interventions Additional Tests or Interventions: I have reviewed the oxygen testing, and this patient qualifies for the home equipment and portability. The patient is mobile in the home and the community. Discharge Plan Triage Chief Complaint: Shortness of Breath ED Provider: Sabino Whitman Dx/Rx/DC Orders Clinical Impression: Acute bronchitis due to COVID-19 virus, Hypoxemia Instructions: Coronavirus Disease 2019 (COVID-19): Caring for Yourself or Others Prescriptions: New dexamethasone 6 mg tablet 6 mg PO DAILY Qty: 4 0RF No Action loratadine [Claritin] 10 mg tablet 10 mg PO DAILY PRN (Reason: allergies) multivitamin Tablet 1 tab PO DAILY biotin 1 mg capsule 1 mg PO DAILY (DME) compress.stocking,knee,reg,lrg Misc See Rx Instructions .MEDSUPPLY Qty: 2 1RF Rx Instructions: wear daily for venous insufficiency 20-30 mmHg Eliquis 5 mg tablet See Rx Instructions .ROUTE .COMPLEX Qty: 60 3RF Dose Instruction: Take 1 tablet by mouth twice daily Patient Comments: stop 3 days prior to procedure Rx Instructions: Take 1 tablet by mouth twice daily anastrozole 1 mg tablet See Rx Instructions .ROUTE .COMPLEX Qty: 90 3RF Dose Instruction: Take 1 tablet by mouth once daily Rx Instructions: Take 1 tablet by mouth once daily albuterol sulfate [Ventolin HFA] 90 mcg/actuation HFA aerosol inhaler 1 - 2 puff inhalation Q4H PRN PRN (Reason: Wheezing) Qty: 1 0RF Rx Instructions: may substitute for different brand of albuterol if needed magnesium citrate Solution 300 ml PO X1 Qty: 1 0RF lidocaine-prilocaine 2.5-2.5 % cream 1 applic topical ONCE PRN (Reason: port access) 30 Days Qty: 30 2RF (DME) Handicap Placard See Rx Instructions .ROUTE .MEDSUPPLY Qty: 1 0RF Rx Instructions: As directed, length of time 3 years (DME) Compression arm sleeve 20-30 mmHg See Rx Instructions .Route .MEDSUPPLY Qty: 2 4RF Rx Instructions: As directed atorvastatin 40 mg tablet 40 mg PO DAILY Qty: 90 4RF paroxetine HCl [Paxil] 20 mg tablet 20 mg PO DAILY Qty: 90 1RF amlodipine 10 mg tablet 10 mg PO DAILY Qty: 90 3RF Primary Care Provider: Michael Corcoran Referrals: Michael Corcoran MD [Primary Care Provider] - 1 Week Activity Restrictions/Additional Instructions: Use your oxygen 24/7. Goal is to keep your oxygen levels at or above 94% if you are able, 90% is adequate. If you continue going down below that, you may turn up to 4 L. If you are needing more than that you need to return to the ER for admission to the hospital. Fill and take the Decadron as prescribed until finished, you do not need to take it today since you received an initial dose in the emergency department. Print Language: Burundian Disposition Disposition: Home, Self Care
[2024-11-02] MEDS: Albuterol 2.5 MG/3 ML VIAL.NEB. INHALATION (14:49)
--- NOTE | 2024-11-02 15:49 | ED.RN ---
pt. o2 level changed re-evaluated for home o2 needs. 88 on room air at rest.
--- NOTE | 2024-11-02 17:00 | CM.ED ---
Social work Reason for referral: home O2 Referral source: Yudith PARIS SW was approached by Yudith PARIS with request to help patient with home oxygen set up, pending Dr. Whitman's desire to do so with this being patient's second time in today due to shortness of breath. Patient has chronic bronchitis and was diagnosed earlier today with Covid. Patient arrived this time in triage at an 82% pulse ox reading and was placed on O2, so patient's initial O2 testing did not qualify patient for home O2. However, later in the patient's stay, patient's oxygen did drop and patient qualified for home O2. Dr. Whitman ordered home O2, patient tested by nursing and qualified, and this SW was assisted by ELIAN Duncan in filling out necessary paperwork. [facility] Liaison from [facility] Griffith, received appropriate paperwork and provided patient with home O2; patient was then discharged home. Debora Cuevas, MAINTENANCE WORKER HOUSE TRAILER, SEISMIC INTERPRETER
== END 2024-11-02 17:35 | disposition home or self-care (01) ==
LOC: ED 14:58
PROVIDERS: Emergency Provider Emergency Medicine; PCP Internal Medicine; Visit Provider Emergency Medicine
DX: U07.1 COVID-19 (principal); J20.8 Acute bronchitis due to other specified organisms; I10 Essential (primary) hypertension; Z79.01 Long term (current) use of anticoagulants; Z79.899 Other long term (current) drug therapy; Z86.711 Personal history of pulmonary embolism; Z86.718 Personal history of other venous thrombosis and embolism
CPT/HCPCS: 94640; 99282

== ENCOUNTER → 2024-11-14 | Outpatient (CLI) | payer MEDICARE, SELFPAY ==
--- NOTE | 2024-11-14 09:54 | NM_ITS ---
PROCEDURE: BONE SCAN WHOLE BODY 11/14/2024 REASON FOR EXAM: BREAST CA 2 years ago. TECHNIQUE: Delayed phase whole-body imaging was performed from the anterior and posterior positions after radiopharmaceutical administration RADIOPHARMACEUTICAL: 26.2 mCi Technetium-99m MDP IV COMPARISON: Whole-body bone scan of 11/10/2021. 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 Mild degenerative changes are seen in the knees, right worse than left. Mild degenerative changes of the spine are seen. No findings are seen to suggest the presence of osseous metastatic disease. NM/Bone Scan Whole Body IMPRESSION: No scintigraphic evidence of osseous metastatic disease. Reading Location: [facility]
== END | disposition home or self-care (01) ==
LOC: NM 09:53
PROVIDERS: PCP Internal Medicine; Referring Provider Internal Medicine Medical Oncology; Visit Provider Internal Medicine Medical Oncology
DX: R22.2 Localized swelling, mass and lump, trunk (principal); C50.212 Malignant neoplasm of upper-inner quadrant of left female breast; Z17.0 Estrogen receptor positive status [ER+]
CPT/HCPCS: 78306; A9503

== ENCOUNTER 2024-11-29 07:40 | Day surgery (SDC) | payer MEDICARE, SELFPAY ==
--- NOTE | 2024-11-27 16:11 | PAT.ANE_ITS ---
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 When Was Last Pacemaker Check QUESTION #4 FULL TEXT: You/Your Family Experience fever (hyperthermia) with Anesthesia Last Oral Intake Last Oral intake: Last Oral Intake NPO since Meds taken in AM with sips of water? 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 kitchen manager Female Yes 11/27/24 13:38 HX of Motion Sickness No 11/27/24 13:38 HX of N/V After Surgery No 11/27/24 13:38 Non-Smoker Yes 11/27/24 13:38 Duration of Surgery greater Yes 11/27/24 13:38 than 60 minutes Number of Risk Factors 3 11/27/24 13:38 PONV Score Moderate Risk 11/27/24 13:38 Height & Weight Height & Weight: Anesthesia: Height & Weight Height 5 ft 1 in 11/20/24 11:06 Respiratory Assessment Respiratory Assessment - restaurant kitchen manager: Respiratory Tract Infection Hx - restaurant kitchen manager Hx Respiratory Tract Infection No 11/27/24 13:38 STOP Sleep Apnea STOP Sleep Apnea - restaurant kitchen manager: STOP Sleep Apnea - restaurant kitchen manager Hx Hypertension Yes: CONTROLLED ON MED 11/27/24 13:38 Hx Sleep Apnea No 11/27/24 13:38 CPAP BIPAP Do you snore loudly (louder No 11/27/24 13:38 than talking or can be heard Do you often feel tired/ No 11/27/24 13:38 fatigued/ sleepy during daytime? Has anyone observed you stop No 11/27/24 13:38 breathing during sleep? STOP Results Negative 11/27/24 13:38 QUESTION #5 FULL TEXT : Do you snore loudly (louder than talking or can be heard through closed doors)? 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 Specify any problems Hx of Preganancy in last 3 No 11/27/24 13:38 Months Nurse Filling Out Transfusion ANNY 11/27/24 13:38 & Questions: Date: 11/27/24 11/27/24 13:38 Time: 13:40 11/27/24 13:38 Patient unable to answer at this time (ie. confused, unrespo /Reproduction History /Reproductive History - restaurant kitchen manager: /Reproductive Hx- restaurant kitchen manager Hx Now No 11/27/24 13:38 Gestational Age (in weeks): EDC: Hx Hx Para Hx Section SAB No 11/27/24 13:38 PFSH Medical History (Updated 11/27/24 @ 13:54 by Haydee Adan) Depression History of steroid therapy History of pulmonary embolism Excessive bleeding High cholesterol History of edema Nodule of chest wall Pain of left lower extremity Shingles Flu vaccine need Venous insufficiency of both lower extremities Cardiology follow-up encounter Osteopenia with high risk of fracture Colon cancer screening Cataract (lens) fragments in eye following cataract surgery, bilateral Screening for breast cancer Encounter for monitoring cardiotoxic drug therapy Decreased cardiac ejection fraction Encounter for monitoring cardiotoxic drug therapy Port-A-Cath in place Hypokalemia 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 CINV (chemotherapy-induced nausea and vomiting) Encounter for chemotherapy management Left thyroid nodule Encounter for education Wears dentures Wears glasses Anxiety DVT (deep venous thrombosis) Non-smoker History of echocardiogram History of stress test Hypertension Breast cancer, left Abnormal mammogram of left breast Anxiety and depression Breast pain, left Left shoulder pain Encounter for screening for COVID-19 URI (upper respiratory infection) Chest pain Fractures involving multiple body regions Breast lump Blood clot in vein Vision problems Pneumonia Kidney stones H/O emotional problems Chronic bronchitis Asthma Arthritis Environmental allergies Home Medications ?Medication ?Instructions ?Recorded ?Last Taken ?Type multivitamin 1 tab PO DAILY 07/15/2206/17 History loratadine 10 mg tablet (Claritin) 10 mg PO DAILY PRN allergies 08/26/22 07/17/22 History biotin 1 mg capsule 1 mg PO DAILY 10/29/2207/10 History lidocaine-prilocaine 2.5 %-2.5 % 1 applic topical ONCE PRN port 01/19/23 Unknown Rx topical cream access 30 days #30 grams Handicap Placard #1 ea 05/24/23 Unknown Rx Compression arm sleeve 20-30 mmHg #2 ea 06/28/23 Unkno wn Rx compress.stocking,knee,reg,lrg #2 ea 01/12/24 Unknown Rx apixaban 5 mg tablet (Eliquis) See Rx Instructions .Ro andreafski 07/11/24 11/26/24 Rx .COMPLEX #60 tabs amlodipine 10 mg tablet 10 mg PO DAILY #90 tabs 08/17 06/12 Unknown Rx anastrozole 1 mg tablet See Rx Instructions .Route 0 09/18/24 Unknown Rx .COMPLEX #90 tabs albuterol sulfate 90 mcg/actuation 1 - 2 puff inhalati on Q4H PRN PRN 11/02/24 Unknown Rx aerosol inhaler (Ventolin HFA) Wheezing ##1 dexamethasone 6 mg tablet 6 mg PO DAILY #4 tabs Unknown Rx atorvastatin 40 mg tablet 40 mg PO DAILY #90 tabs 10/17 12/10 Unknown Rx paroxetine HCl 20 mg tablet (Paxil) 20 mg PO DAILY #90 tabs 11/13/24 Unknown Rx Allergy/AdvReac Type Severity Reaction Status Date / Time Penicillins Allergy Hives Verified 11/27/24 13:33 Family History Father Alcoholism Asthma Mother Anxiety Blood clot in vein Myocardial infarction Grandmother Blood clot in vein Myocardial infarction Brother Myocardial infarction Aunt Breast cancer Grandmother CVA (cerebral vascular accident) Daughter Suicide attempt Other Colon cancer Surgical History (Updated 11/27/24 @ 13:38 by Haydee Adan) History of insertion of tunneled central venous catheter (CVC) with port History of appendectomy Hx of left mastectomy History of lymph node dissection of axilla S/P left mastectomy Hx of tubal ligation History of hysterectomy History of tonsillectomy History of shoulder surgery Social History Smoking Status: Never smoker alcohol intake: never substance use type: does not use caffeine: Yes Type: carbonated beverages Number of servings: 2 what type of physical activity do you participate in: none seatbelt use: always do you feel safe at home: Yes Audit: Pertinent Findings Pertinent Findings EKG Perinent findings: August 10, 2024. Ectopic atrial rhythm. Left anterior fascicular block. Moderate LVH. Stress test pertinent findings: December 07, 2017. Ejection fraction 60% at rest increased to 75% with stress. Negative for ischemia at 93% of maximum heart rate. Normal dobutamine stress echo with no wall motion abnormalities. Echo (EF%) pertinent findings: August 23, 2023. EF of 55%. No aortic stenosis noted. Consult pertinent findings: January 27, 2024. Dr. Tucker. 1. Encounter for monitoring cardiotoxic drug therapy-echo obtained August 23, 2023 reviewed. (See above) 2. Decreased ejection fraction-EF is normalized. Global longitudinal strain is also normal. Continue to monitor. 3. Hypertension-under excellent control. No changes at this time. Recommendation Anesthesia Recommendation Anesthesia recommendation: OPTIMIZED for anesthesia
[2024-11-29] VITALS (10 sets, daily range): BP systolic 99–121; BP diastolic 43–69; PULSE 60–72; RESP 14–18; TEMP 36.2–36.5; O2SAT 92–97; BMI 37.1
--- NOTE | 2024-11-29 08:30 | PCM.HP.BLA ---
History and Physical Date of Admission: 11/29/24 Date of Service: 11/23/24 MR#: [id number] Acct: [id number] Name: PAUL BARONE Rep #: [id number] : 1945 Provider: Dr. Melyssa Saab MD Age/Sex: 78/F Location: [facility] Status: Signed Intake Vital Signs 11/20/2510:06 11/23/2514:01 Height 5 ft 1 in 5 ft 1 in Weight: 194 lb 7 oz 194 lb BMI 36.7 36.6 BP 104/67 101/68 Blood Pressure Location Rt brachial Rt brachial Position Sitting Sitting Respiration 18 16 Pulse 80 Pulse Source Monitor Temp 97.6 F L Pulse Oximetry (%) 97 Oxygen Delivery Method room air Intake Visit Reasons: DISCUSS BREAST SX Chief Complaint: discuss breast sx Certified Teacher Assistant Required: No Is patient in pain?: No Allergies Penicillins Allergy (Verified 11/23/24 15:02) Hives Medications ?Medication ?Instructions ?Recorded ?Confirmed ?Type multivitamin 1 tab PO DAILY 07/15/22 11/23/24 History loratadine 10 mg tablet (Claritin) 10 mg PO DAILY PRN allergies 08/26/22 11/23/24 History biotin 1 mg capsule 1 mg PO DAILY 10/29/22 11/23/24 History lidocaine-prilocaine 2.5 %-2.5 % 1 applic topical ONCE PRN port 01/19/23 11/23/24 Rx topical cream access 30 days #30 grams Handicap Placard #1 ea 05/24/23 11/23/24 Rx Compression arm sleeve 20-30 mmHg #2 ea 06/28/23 11/23/24 Rx magnesium citrate 300 ml PO X1 #1 BOTTLE 11/10/23 11/23/24 Rx compress.stocking,knee,reg,lrg #2 ea 01/12/24 11/23/24 Rx apixaban 5 mg tablet (Eliquis) See Rx Instructions .Route 07/11/24 11/23/24 Rx .COMPLEX #60 tabs amlodipine 10 mg tablet 10 mg PO DAILY #90 tabs 09/06/24 11/23/24 Rx anastrozole 1 mg tablet See Rx Instructions .Route 09/18/24 11/23/24 Rx .COMPLEX #90 tabs albuterol sulfate 90 mcg/actuation 1 - 2 puff inhalation Q4H PRN PRN 11/02/24 11/23/24 Rx aerosol inhaler (Ventolin HFA) Wheezing ##1 dexamethasone 6 mg tablet 6 mg PO DAILY #4 tabs 11/02/24 11/23/24 Rx atorvastatin 40 mg tablet 40 mg PO DAILY #90 tabs 11/12/24 11/23/24 Rx paroxetine HCl 20 mg tablet (Paxil) 20 mg PO DAILY #90 tabs 11/13/24 11/23/24 Rx Have you fallen in the past year?: No PFSH Medical History Nodule of chest wall Pain of left lower extremity Shingles Flu vaccine need Venous insufficiency of both lower extremities Cardiology follow-up encounter Osteopenia with high risk of fracture Colon cancer screening Cataract (lens) fragments in eye following cataract surgery, bilateral Screening for breast cancer Encounter for monitoring cardiotoxic drug therapy Decreased cardiac ejection fraction Encounter for monitoring cardiotoxic drug therapy Port-A-Cath in place Hypokalemia 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 CINV (chemotherapy-induced nausea and vomiting) Encounter for chemotherapy management Left thyroid nodule Encounter for education Wears dentures Wears glasses Anxiety Pulmonary embolism DVT (deep venous thrombosis) Non-smoker History of echocardiogram History of stress test Hypertension Breast cancer, left Abnormal mammogram of left breast Anxiety and depression Breast pain, left Left shoulder pain Encounter for screening for COVID-19 URI (upper respiratory infection) Chest pain Fractures involving multiple body regions Breast lump Blood clot in vein Vision problems Pneumonia Kidney stones H/O emotional problems Chronic bronchitis Asthma Arthritis Environmental allergies Surgical History History of appendectomy Hx of left mastectomy History of lymph node dissection of axilla S/P left mastectomy Hx of tubal ligation History of hysterectomy History of tonsillectomy History of shoulder surgery Family History Father Alcoholism AsthmaMother Anxiety Blood clot in vein Myocardial infarctionGrandmother Blood clot in vein Myocardial infarctionBrother Myocardial infarctionAunt Breast cancerGrandmother CVA (cerebral vascular accident)Daughter Suicide attemptOther Colon cancer Social History Smoking Status: Never smoker alcohol intake: never substance use type: does not use caffeine: Yes Type: carbonated beverages Number of servings: 2 what type of physical activity do you participate in: none seatbelt use: always do you feel safe at home: Yes HPI HPI HPI: 78-year-old female well-known to me with history of left breast cancer status post left mastectomy and left axillary lymph node dissection April 2022 and status post neoadjuvant adjuvant chemotherapy. Patient's biopsy of the left chest nodules were consistent with recurrent breast cancer. PET scan showed that this was localized disease with 2 nodules adjacent to the pectoralis and appears 1 lymph node underneath. Patient here to discuss excision. ROS General General: Yes breast cancer; No weight change, appetite, fatigue or colon cancer HEENT HEENT: Yes eye surgery; No difficulty swallowing, eye injury, swollen glands or hoarseness Endo Endocrine: No thyroid disease, diabetes mellitus, thyroid cancer, Hair loss, heat intolerance or cold intolerance Skin Skin: No rash or changing moles Breast Breast: Yes left breast lump and abnormal US Additional Details: Left chest wall nodule status post left mastectomy Musc Musculoskeletal: No back problems, arthritis, rheumatoid arthritis, gout or joint pain Cardio Cardiovascular: Yes high blood pressure; No murmur, pacemaker, heart disease, atrial fibrillation, heart attack, heart stent, palpitations, shortness of breath with exertion or chest pain Psych Psychiatric: No depression, anxiety or hearing voices Resp Respiratory: No shortness of breath, No sleep apnea, No cough, No COPD, No asthma, No emphysema and No wheezing Gastro Gastrointestinal: No abdominal pain, No nausea or vomiting, No diarrhea, No constipation, No blood in stool, No acid reflux, No hemorrhoids, No ulcers, No gallbladder problem and No black,tarry stools [place] Hematologic: Yes blood thinners, No blood disorders, No bleeding, No anemia and Yes blood clots Neuro Neurologic: No numbness and No tingling Exam Const General: cooperative, healthy appearing, comfortable and no acute distress Chest Other: left mastectomy incision well-healed, 2 x 2 cm adjacent chest nodules?fixed upper mid chest, firm, no change in overlying skin. Resp Effort & Inspection: normal respiratory effort Cardio Rate: regular rate GI Inspection: non-distended Palpation: soft Assessment and Plan Assessment and Plan (1) Local recurrence of cancer of left breast: Status: Acute Comment: PET/CT 11/13/2024 reviewed, hypermetabolic nodules L anterior chest wall, no evidence of distant metastases Plan Discussed with patient and her daughter would plan for excision of the 2 nodules adjacent to the muscle which would likely include some of the pectoralis muscle as well as the lymph node that did enhance on PET scan. Risk include not limited to bleeding, infection, recurrence. Patient is agreeable with plan. Patient will hold her Eliquis 3 days prior to the procedure which will be scheduled for next . Melyssa Saab M.D. Pager: [phone] [facility] [address] [place] [address], [facility], [address] [place] [address] Office: [phone] Coding Level of Care Code Off vis,est,level 4 Diagnoses Local recurrence of cancer of left breast C50.912 Clinical Quality Measures Falls Risk Screening/Assistive Devices Have you fallen in the past year?: No 11/24/24 0851 <Electronically signed by Melyssa Saab MD> Date Melyssa Saab MD
--- NOTE | 2024-11-29 08:56 | PCM.PRE.AN2 ---
ASA Classification* ASA Classification ASA Classification: 3 Assessment & Plan Anesthesia* Anesthesia Assessment Anesthesia Assessment: Discussed sedation and/or anesthesia options, risks, benefits, and alternatives with patient/parents/legal guardian/POA. Questions invited. The patient/parents/legal guardian/POA seems to understand and agrees to proceed with anesthesia plan. Reviewed the physical assessment, medical history, allergy history and patient home medications list prior to surgery/procedure/anesthetic and documented any changes. Performed airway and anesthesia risk assessments. Anesthesia Type Anesthesia Type: General History Source History Obtained from:: Patient and Chart Anesthesia Focused Assessment* Temperature: 97.6 F Pulse Rate: 60 Blood Pressure: 121/69 Respiratory Rate: 18 Pulse Ox: 96 Oxygen Delivery Method: Room Air Airway Assessment Mouth opens: >3 cm Mallampati Score: IV Teeth Condition: Dentures (Patient has full upper dentures. They are out.) and Missing (Patient is missing multiple teeth on the lower jaw. The rest are tight.) Neck Range of motion (ROM): Limited ROM (Slight Decrease) Labs Anesthesia Preop lab: CBC WBC 8.3 K/mm3 (4.4-11.0) 09/18/24 15:05 09/18/24 RBC 4.74 M/mm3 (4.2-5.4) 09/18/24 15:05 09/18/24 Hgb 13.1 g/dL (12.0-15.0) 09/18/24 15:05 09/18/24 Hct 40.6 % (37-47) 09/18/24 15:05 09/18/24 Plt Count 213 K/mm3 (150-450) 09/18/24 15:05 09/18/24 CHEMISTRY Potassium 4.2 mmol/L (3.3-5.1) 09/18/24 15:05 09/18/24 Sodium 139 mmol/L (133-145) 09/18/24 15:05 09/18/24 Magnesium 1.9 mg/dL (1.6-2.6) 12/09/22 13:20 12/09/22 Phosphorus 3.3 mg/dL (2.5-4.9) 12/09/22 13:20 12/09/22 BUN 26 mg/dL (4-19) H 09/18/24 15:05 09/18/24 Creatinine 1.37 mg/dL (0.70-1.20) H 09/18/24 15:05 09/18/24 Glucose 143 mg/dL (70-99) H 09/18/24 15:05 09/18/24 TSH 0.91 uIU/mL (0.358-3.74) 12/07/17 05:36 12/07/17 COAG PT 16.0 SECONDS (11.7-14.9) H 07/15/22 08:37 07/15/22 Pre-Assessment Diagnosis/Proposed Procedure Planned Operative Procedure(s): (L) U/S guided left breast re-excision breast bx Anesthesia History 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 When Was Last Pacemaker Check QUESTION #4 FULL TEXT: You/Your Family Experience fever (hyperthermia) with Anesthesia Last Oral Intake Last Oral intake: Last Oral Intake NPO since 19:00 11/29/24 08:17 Meds taken in AM with sips of Yes 11/29/24 08:17 water? 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 Female Yes 11/27/24 13:38 HX of Motion Sickness No 11/27/24 13:38 HX of N/V After Surgery No 11/27/24 13:38 Non-Smoker Yes 11/27/24 13:38 Duration of Surgery greater Yes 11/27/24 13:38 than 60 minutes Number of Risk Factors 3 11/27/24 13:38 PONV Score Moderate Risk 11/27/24 13:38 Height & Weight Height & Weight: Anesthesia: Height & Weight Height 5 ft 1 in 11/29/24 08:17 Weight: 89.2 kg 11/29/24 08:17 Body Mass Index (BMI) 37.1 11/29/24 08:17 Respiratory Assessment Respiratory Assessment - 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 Has anyone observed you stop No 11/27/24 13:38 breathing during sleep? STOP Results Negative 11/27/24 13:38 QUESTION #5 FULL TEXT : Do you snore loudly (louder than talking or can be heard through closed doors)? 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 Specify any problems Hx of Preganancy in last 3 No 11/27/24 13:38 Months Nurse Filling Out Transfusion MGRIFFITH 11/27/24 13:38 & Questions: Date: 11/27/24 11/27/24 13:38 Time: 13:40 11/27/24 13:38 Patient unable to answer at this time (ie. confused, unrespo /Reproduction History /Reproductive History - submarine worker: /Reproductive Hx- submarine worker Hx Now No 11/27/24 13:38 Gestational Age (in weeks): EDC: Hx Hx Para Hx Section SAB No 11/27/24 13:38 Active Medications Active Medications: Current Medications Generic Name Dose Route Start Last Admin Trade Name Freq PRN Reason Stop Dose Admin Clindamycin Phosphate 900 mg in 50 mls @ 75 mls/hr 11/29/24 09:00 11/29/24 08:55 Cleocin IV 11/29/24 09:39 Not Given INTRAOP ONE Lactated Ringer's 1,000 mls @ 15 mls/hr 11/29/24 08:00 IV .Q48H LINDA Sodium Chloride 10 - 40 ml 11/29/24 08:29 0.9% Saline Lock 10 Ml Syringe IV UD PRN Port-a-Cath (VAD)/R Port Flush Sodium Chloride 10 - 40 ml 11/29/24 08:29 0.9 % Nacl (Sterile) Posiflush 10 Ml IV UD PRN Port access or dressing change PFSH Medical History Depression History of steroid therapy History of pulmonary embolism Excessive bleeding High cholesterol History of edema Nodule of chest wall Pain of left lower extremity Shingles Flu vaccine need Venous insufficiency of both lower extremities Cardiology follow-up encounter Osteopenia with high risk of fracture Colon cancer screening Cataract (lens) fragments in eye following cataract surgery, bilateral Screening for breast cancer Encounter for monitoring cardiotoxic drug therapy Decreased cardiac ejection fraction Encounter for monitoring cardiotoxic drug therapy Port-A-Cath in place Hypokalemia 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 CINV (chemotherapy-induced nausea and vomiting) Encounter for chemotherapy management Left thyroid nodule Encounter for education Wears dentures Wears glasses Anxiety DVT (deep venous thrombosis) Non-smoker History of echocardiogram History of stress test Hypertension Breast cancer, left Abnormal mammogram of left breast Anxiety and depression Breast pain, left Left shoulder pain Encounter for screening for COVID-19 URI (upper respiratory infection) Chest pain Fractures involving multiple body regions Breast lump Blood clot in vein Vision problems Pneumonia Kidney stones H/O emotional problems Chronic bronchitis Asthma Arthritis Environmental allergies Home Medications ?Medication ?Instructions ?Recorded ?Last Taken ?Type multivitamin 1 tab PO DAILY 07/15/22 11/28/24 History loratadine 10 mg tablet (Claritin) 10 mg PO DAILY PRN allergies 08/26/22 07/17/22 History biotin 1 mg capsule 1 mg PO DAILY 10/29/22 11/28/24 History lidocaine-prilocaine 2.5 %-2.5 % 1 applic topical ONCE PRN port 01/19/23 11/29/24 Rx topical cream access 30 days #30 grams Handicap Placard #1 ea 05/24/23 Unknown Rx Compression arm sleeve 20-30 mmHg #2 ea 06/28/23 Unknown Rx compress.stocking,knee,reg,lrg #2 ea 01/12/24 Unknown Rx apixaban 5 mg tablet (Eliquis) See Rx Instructions .Route 07/11/24 11/26/24 Rx .COMPLEX #60 tabs amlodipine 10 mg tablet 10 mg PO DAILY #90 tabs 09/06/24 11/29/24 Rx anastrozole 1 mg tablet See Rx Instructions .Route 09/18/24 11/28/24 Rx .COMPLEX #90 tabs albuterol sulfate 90 mcg/actuation 1 - 2 puff inhalation Q4H PRN PRN 11/02/24 11/15/24 Rx aerosol inhaler (Ventolin HFA) Wheezing ##1 dexamethasone 6 mg tablet 6 mg PO DAILY #4 tabs 11/02/24 11/28/24 Rx atorvastatin 40 mg tablet 40 mg PO DAILY #90 tabs 11/12/24 11/28/24 Rx paroxetine HCl 20 mg tablet (Paxil) 20 mg PO DAILY #90 tabs 11/13/24 11/28/24 Rx Allergy/AdvReac Type Severity Reaction Status Date / Time Penicillins Allergy Hives Verified 11/29/24 08:15 Family History Father Alcoholism Asthma Mother Anxiety Blood clot in vein Myocardial infarction Grandmother Blood clot in vein Myocardial infarction Brother Myocardial infarction Aunt Breast cancer Grandmother CVA (cerebral vascular accident) Daughter Suicide attempt Other Colon cancer Surgical History History of insertion of tunneled central venous catheter (CVC) with port History of appendectomy Hx of left mastectomy History of lymph node dissection of axilla S/P left mastectomy Hx of tubal ligation History of hysterectomy History of tonsillectomy History of shoulder surgery Social History Smoking Status: Never smoker alcohol intake: never substance use type: does not use caffeine: Yes Type: carbonated beverages Number of servings: 2 what type of physical activity do you participate in: none seatbelt use: always do you feel safe at home: Yes Review of Systems (Anesthesia) ROS Narrative System reviewed and no additional complaints, except as documented. Physical Exam Resp clear to auscultation bilaterally
--- NOTE | 2024-11-29 09:00 | BRBX_PTH ---
PATIENT: PALU BARONE LOC: [facility] [place] U#:[id number] AGE/SX: 78/F ROOM: RE11/29/[address]: Dr. Melyssa Saab MD : 1945 BED: DIS: 11/29/2024 SPEC #: [id number] RECD: 11/29/24 11:07 STATUS: ARSENIO REFarhad #: [id number] LIONEL: 11/29/24 09:[address]: Melyssa Saab DEPT: SURGICAL PATHOLOGY RECD BY: Cory Batres ENTERED: 11/29/24 13:47 SP TYPE: BREAST BX OTHR DR: Dr. Michael Corcoran MD Tissues: A - Left breast, NOS B - Left breast, NOS C - Left breast, NOS Procedures: Immunohistochemical Stains Surgery Specimen Level V IHC Stain ADDITIONAL HEADER OPERATION: Ultrasound guided left breast re-excision breast biopsy PRE-OP DIAGNOSIS: Local recurrence of cancer of left breast TISSUE SUBMITTED: A- Recurrent breast cancer ABOVE left pectoralis muscle *short stitch- middle of superior, long stitch- middle of lateral*, B- Recurrent breast cancer BELOW left pectoralis muscle *short stitch- middle of superior, long stitch- middle of lateral*, C- Left breast inferior - medial fajardo skin margin *long - lateral, short- superior* MICROSCOPIC DIAGNOSIS A. Breast, left, above pectoralis muscle, ultrasound-guided re-excision: - Invasive ductal carcinoma, involving the posterior surgical margin and closely approaching the anterior and lateral surgical margins (</= 1 mm). - Grade 2 (tubule 3, nuclear 2, mitosis 1) - pT2 pNX. - Lymphovascular invasion not identified (ERG, CD31 IHCs). - See Synoptic Report B. Breast, left, below pectoralis muscle, ultrasound-guided re-excision: - Invasive ductal carcinoma involving the posterior, inferior, anterior, superior, and lateral surgical margins. - Grade 2 (tubule 3, nuclear 2, 1 mitosis). - Perineural invasion identified. C. Skin, left breast, inferior-medial, margin: - Focal invasive ductal carcinoma at deep margin of the skin/subcutaneous tissue - see note. - Definitive lymphovascular invasion not identified (ERG IHC). Note: The deep margin is with respect to the skin surface, rather than the deepest extent of the ductal carcinoma in vivo. SYNOPTIC REPORT FOR INVASIVE BREAST CARCINOMA Specimen (P=partial, M=mastectomy):?P Laterality (R=right, L=left):?L Focality (U=unifocal, M=multifocal):?M Tumor size (cm):?4.1 cm (part A) Histologic type:?invasive ductal Histologic grade:?2 ??? Tubule score (1-3):?3 ??? Nuclear score (1-3):?2 ??? Mitotic score (1-3):?1 Skin, nipple epidermis, skeletal muscle (I=involved, N=negative, NA=not applicable):?I (skeletal muscle in parts A, B) Lymphovascular invasion (E=extensive, F=focal, N=not identified):?N Margins of main specimen (P=positive, N=negative):?P Distance to closest margin of main specimen (mm):?0 Designation of closest margin of main specimen:?deep Designation of other margins of main specimen </=1 mm:?anterior, lateral Re-resection margin status (P=positive, N=negative, NA=not applicable):?NA ? DCIS (P=present, N=not identified):?N ? Regional lymph nodes: NA ? Estrogen receptor:?positive (20%, weak to intermediate intensity) Progesterone receptor:?negative HER2 IHC:?PENDING AT [facility] HER2 FISH:?(pending IHC result) Ki67q: 80-90% Specimen in which ER/MI/HER2 performed:?[id number] pTNM:?pT2 pNX Additional findings:?Additional tumor deep to pectoralis muscle (part B) is involving the surgical margins. Perineural invasion is observed (part B). Focal suspicion for lymphovascular invasion observed in part C, but this is not confirmed on the ERG IHC; the area in question may have been stepped through. IHCs utilized in the evaluation: ER, MI, HER2 ([facility]), Ki67 (A2) ERG, CD31 (A4) CK7, ERG (C2) Comment: Addendum for [id number] will follow. ? The above synoptic report complies, in slightly modified form, with the guidelines of the [employer] [place] and the Association of Directors of Anatomic and Surgical Pathology for the reporting of cancer specimens MICROSCOPIC DESCRIPTION Slides are reviewed. All matched controls reacted appropriately. These tests were developed and their performance characteristics determined by [facility]. They may not have been cleared or approved by the U.S. Food and Drug Administration. The FDA has determined that such clearance or approval is not necessary.? The above immunohistochemical?markers are reviewed by the Pathologist. All controls show appropriate reactivity. (HER2) All immunohistochemistry, in situ hybridization, and histochemical tests were developed by and are performed at the [facility], [address] [place] [address]. All Immunofluorescent (IF)?tests were developed by and are performed at the [facility], [address] [place] [address], [place], [place] ?[address]. All tests reported here, except those addressing HER2 overexpression as a predictive marker, have not been cleared by or approved by the US Food and Drug Administration (FDA). The laboratory is regulated under CLIA as qualified to perform high-complexity testing. The tests are used for clinical purposes. They should not be regarded as investigational or for research. GROSS DESCRIPTION Received in 3 formalin containers labeled with the patient's name and date of . Designated as: A. Recurrent breast cancer above left pectoralis muscle is a 5.7 x 4.5 x 2.1 cm portion of fibrofatty tissue with orientation. There is a short suture designated as middle of superior and a long suture designated as middle of lateral. Skin is not present. Muscle is present on the posterior aspect. The specimen is inked as follows: Superior: RedInferior: BlueMedial: YellowLateral: OrangeAnterior: GreenPosterior: Black The specimen is serially sectioned from medial to lateral (into 9 slices) revealing a 4.1 x 2.6 x 1.7 cm eric-white to red, firm mass with patchy apparent necrosis and irregular borders; the mass spans all 9 slices. A biopsy clip is is identified within the mass in slice #3. The mass is located the following distances from each margin: Anterior: <0.1 cmInferior: 0.2 cmMedial: 0.6 cmLateral: 0.5 cmPosterior: 0.2 cm (grossly extending into the muscle)Superior: 0.2 cm Manager Field Services sections are submitted, sequentially from slice #1 to slice #9 (medial to lateral) as follows: A1: Mass to medial, perpendicular (yellow/black/green)A2: Slice #2, mass to anterior/superior/posterior (green/red/black)A3: Slice #3, mass to anterior/superior/posterior (green/red/black)A4: Slice #6, fibrosis (versus mass) to inferior/posterior (blue/black) and mass with no margins to adjacent fibrosis (suspicious for mass)A5: Slice #9, mass to lateral, perpendicular (orange/black/blue) Cold ischemic time: UnknownFormalin fixation time: Unknown No collection time listed on specimen container or requisition* B. Recurrent breast cancer below left pectoralis muscle is a 2.1 x 1.7 x 1.1 cm portion of fibrofatty tissue with orientation. There is a short suture designated as middle of superior and a long suture designated as middle of the lateral. Skin is not present. Muscle is present on both the anterior and focally on the posterior aspect. The specimen is inked as follows: Superior: RedInferior: BlueMedial: YellowLateral: OrangeAnterior: GreenPosterior: Black The specimen is serially sectioned from medial to lateral (into 5 slices) revealing a 1.5 x 1.3 x 0.8 cm eric-white, firm mass spanning slices #2-#5. A biopsy clip is not identified. The mass is located the following distances from each margin: Anterior: <0.1 cmInferior: <0.1 cmMedial: 0.2 cmLateral: <0.1 cmPosterior: <0.1Superior: <0.1 cm The specimen is entirely submitted, sequentially from slice #1 to slice #5 (medial to lateral) in 4 cassettes as follows: B1: Slice #1, medial, perpendicular (yellow/red/black)B2: Slice #2/#3, anterior/posterior/superior/inferior (green/black/red/blue)B3: Slice #4, anterior/posterior/superior/inferior (green/black/red/blue)B4: Slice #5, lateral, perpendicular (orange/green/red) Cold ischemic time: UnknownFormalin fixation time: Unknown No collection time listed on specimen container or requisition* C. Inferior-medial skin margin left breast is a 3.3 x 1.4 cm eric-pink, slightly wrinkled irregular portion of skin with orientation, excised to a maximum depth of 0.3 cm. No epidermal lesions are grossly identified. There is a long suture designated as lateral that is redesignated as 12:00 per the grossing PA and a short suture designated as superior which is redesignated as 9:00 per the [facility]. The specimen is inked as follows: 12:00 to 3:00: Green3:00 to 6:00: Yellow6:00 to 9:00: Orange9:00 to 12:00: BlueDeep: Black The specimen is serially sectioned, from 12:00 to 6:00 and entirely submitted, sequentially in 3 cassettes. TN 11/29/2024 CPT:[id number] ADDENDUM ADDENDUM ADDENDUM ADDENDUM ADDENDUM 12/05/2024 14:34 ADDENDUM 12/05/2024 14:34 ADDENDUM 12/05/2024 14:34 ADDENDUM 12/05/2024 14:34 ADDENDUM 12/05/2024 14:34 This addendum is to report the [id number] performed at [facility] on part A: A. [id number]: positive (3+) [id number]: NA
[2024-11-29] MEDS: fentaNYL 100 MCG/2 ML Ampul 50 MCG IV (09:15)
[2024-11-29] MEDS: Lidocaine 1% (5 ml sdv) 5 ML Vial IV (09:17)
--- NOTE | 2024-11-29 10:17 | OP.PCM_ITS ---
Operative Report (Standard) Operative Information Date of Procedure: 11/29/24 Pre-Operative Diagnosis: Recurrent left breast cancer Post-Operative Diagnosis: Same Surgery/Procedure Performed: Reexcision left breast cancer s/p mastectomy experimental plastics fabricator: Yes Education Technician: Sonia Sears Tasks completed by volunteer services assistant: Opening & closing and Retracting Type of Anesthesia: General/Supplemental
--- NOTE | 2024-11-29 10:17 | PCM.OPRPT ---
Operative Report (Standard) Operative Information Date of Procedure: 11/29/24 Pre-Operative Diagnosis: Recurrent left breast cancer Post-Operative Diagnosis: Same Surgery/Procedure Performed: Reexcision left breast cancer s/p mastectomy manufacturer agent: Yes Electrical Manufacturing Engineer: Sonia Sears Tasks completed by budget assistant: Opening & closing and Retracting Type of Anesthesia: General/Supplemental RN Documented Start/Stop Times: Operation Date: 11/29/24 09:00 Case Time Into Pre-Op 11/29/24 07:50 Anesthesia Start 11/29/24 09:11 Into Room 11/29/24 09:11 Procedure Start 11/29/24 09:27 Procedure End 11/29/24 10:20 Anesthesia End 11/29/24 10:31 Out of Room 11/29/24 10:31 Into Recovery 11/29/24 10:33 Into Phase II Recovery 11/29/24 11:19 Out of Recovery 11/29/24 11:19 Out of Phase II 11/29/24 12:27 Procedure Start Time: 09:27 Procedure Stop Time: 10:20 Select all DRAINS/GRAFTS/IMPLANTS that apply: None Special Medications: Clindamycin 900 mg IVx1 Estimated Blood Loss: <10 cc Specimen collected: Yes Description of specimen(s) removed: 1. Recurrent breast cancer above pectoralis muscle, 2. Recurrent breast cancer below the pectoralis muscle, 3. New inferior medial skin margin Description of surgery: Patient was brought to operating room placed spinal operative table. Timeout was completed verifying correct patient, procedure, site, positioning, special clinic prep beginning procedure. General anesthesia was induced. Patient's left chest was prepped draped in usual sterile fashion with chlorhexidine. Incision was planned overlying the nodules and the nodule underneath the pectoralis major was identified and marked with bedside ultrasound prior to procedure. Transverse incision was made across the masses. Dissection was done using electrocautery and LigaSure hand-held part of the pectoralis muscle was also taken with the specimen. The 2 nodules above the pectoralis muscles were oriented and sent to pathology. The lymph node or recurrent cancer between the muscles was targeted and dissected with the LigaSure hand-held and electrocautery. Tried to include small margin of normal tissue with both specimens. Nodule under the pectoralis muscle was oriented and sent to pathology. Additional inferior medial skin margin was taken as it was close to the mass and there is question about blood supply to this area as it is superior to the original mastectomy incision. Cavity was irrigated with sterile water. Hemoblast was used for hemostasis. Incision was closed with 3-0 nylon vertical mattress sutures medially and interrupted's laterally. Telfa and pressure dressing was placed over the top secured with tape. Patient was extubated. Patient tolerated procedure well and was taken to the postacute anesthesia care unit in stable condition. Surgical Findings: see op note Complications Complications: No
--- NOTE | 2024-11-29 10:18 | EX.PCM.DISCH ---
Discharge Instructions Diet Discharge Diet: No restrictions Activity Discharge Activity: May Not Drive (for 2-3 days or while taking narcotic pain meds.) May shower in (days): 1 Lifting Restrictions: 10 pounds for 1 week. Dressing / Incision Call your doctor if your incision/area has: Continuous Slow Oozing, Sudden Increased Bleeding, Increased Pain/ Swelling and Increased Redness Call your doctor if you observe: Fever of 101 or Higher Suture Line Care: Avoid Pulling/Pushing and Avoid Pinching/Bending Remove Dressing in: 1 day Additional Dressing/Incision Instructions:: keep pressure dressing on for 3-4 days. Permanent sutures in place. Follow Up Care Please Follow Up With: Melyssa Saab MD When: Please call [phone] for an appointment to be seen in 1 week. Test Results: Test results from this visit will be discussed in further detail at your follow-up appointment, if applicable. Discharge Plan Admission Attending Provider: Melyssa Saab Primary Care Provider: Michael Corcoran Instructions Print Language: Indonesian Discharge Orders/Prescriptions Prescriptions: New oxycodone 5 mg capsule 5 mg PO Q6H PRN (Reason: pain) 3 Days Qty: 14 0RF Continued loratadine [Claritin] 10 mg tablet 10 mg PO DAILY PRN (Reason: allergies) multivitamin Tablet 1 tab PO DAILY biotin 1 mg capsule 1 mg PO DAILY (DME) compress.stocking,knee,reg,lrg Misc See Rx Instructions .MEDSUPPLY Qty: 2 1RF Rx Instructions: wear daily for venous insufficiency 20-30 mmHg anastrozole 1 mg tablet See Rx Instructions .ROUTE .COMPLEX Qty: 90 3RF Dose Instruction: Take 1 tablet by mouth once daily Rx Instructions: Take 1 tablet by mouth once daily albuterol sulfate [Ventolin HFA] 90 mcg/actuation HFA aerosol inhaler 1 - 2 puff inhalation Q4H PRN PRN (Reason: Wheezing) Qty: 1 0RF Rx Instructions: may substitute for different brand of albuterol if needed dexamethasone 6 mg tablet 6 mg PO DAILY Qty: 4 0RF lidocaine-prilocaine 2.5-2.5 % cream 1 applic topical ONCE PRN (Reason: port access) 30 Days Qty: 30 2RF (DME) Handicap Placard See Rx Instructions .ROUTE .MEDSUPPLY Qty: 1 0RF Rx Instructions: As directed, length of time 3 years (DME) Compression arm sleeve 20-30 mmHg See Rx Instructions .Route .MEDSUPPLY Qty: 2 4RF Rx Instructions: As directed amlodipine 10 mg tablet 10 mg PO DAILY Qty: 90 3RF atorvastatin 40 mg tablet 40 mg PO DAILY Qty: 90 3RF paroxetine HCl [Paxil] 20 mg tablet 20 mg PO DAILY Qty: 90 1RF Held Eliquis 5 mg tablet See Rx Instructions .ROUTE .COMPLEX Qty: 60 3RF Hold Instructions: Resume on 12/01/24. if oozing from incision hold longer Dose Instruction: Take 1 tablet by mouth twice daily Patient Comments: stop 3 days prior to procedure Rx Instructions: Take 1 tablet by mouth twice daily Referrals / Follow Up: Michael Corcoran MD [Primary Care Provider] - Disposition Disposition (needs filled in before D/C Order can be placed): Home, Self Care
--- NOTE | 2024-11-29 10:43 | PCM.POST.ANE ---
Anesthesia: Postop Eval I Current Vital Signs Temperature: 97.5 F Pulse Rate: 71 Blood Pressure: 117/53 Respiratory Rate: 14 Pulse Ox: 95 Oxygen Delivery Method: Simple Mask Assessment Airway patent: Yes Spontaneous unlabored respirations: Yes Mental status: Awake nausea: No Vomiting: No Anesthesia Complication: No Fluid Hydration Crystalloid volume administer (ml): 800 Total IV fluid infused: 800 Progress Note Anesthesia document: Postop Eval 1 completed: Yes
[2024-11-29] MEDS: Lactated Ringers 1,000 ML 15 ML IV (11:04)
--- NOTE | 2024-11-29 19:35 | POSTOPAN2_ITS ---
Anesthesia Postop Eval I Sum Postop Eval Completion status Anesthesia document: Postop Eval 1 completed: Yes Anesthesia Postop Eval I Summary Anesthesia Postop Eval I Summary: Anesthesia Postop Eval I: Assessment Summary Airway patent Yes 11/29/24 10:44 [email or web address] Spontaneous unlabored Yes 11/29/24 10:44 CLOTH [email or web address] respirations Mental status Awake 11/29/24 10:44 CLOTH [email or web address] nausea No 11/29/24 10:44 CLOTH [email or web address] Vomiting No 11/29/24 10:44 CLOTH [email or web address] Anesthesia Postop Eval I: Fluid Summary Crystalloid volume administer 800 11/29/24 10:44 CLOTH [email or web address] (ml) Colloids volume administered ( ml) Blood Product volume administered (ml) Total IV fluid infused 800 11/29/24 10:44 CLOTH [email or web address] Anesthesia Postop Eval I: Summary Notes Anesthesia Complication No 11/29/24 10:44 CLOTH [email or web address] Anesthesia Complication Comment: Post-operative progress note Anesthesia: Postop Eval II Evaluation Mental status: Awake and Calm Pain Level: 1 nausea: No Vomiting: No Complications Anesthesia Complication: No
--- NOTE | 2024-11-29 19:35 | PCM.POSTANE2 ---
Anesthesia Postop Eval I Sum Postop Eval Completion status Anesthesia document: Postop Eval 1 completed: Yes Anesthesia Postop Eval I Summary Anesthesia Postop Eval I Summary: Anesthesia Postop Eval I: Assessment Summary Airway patent Yes 11/29/24 10:44 CORE [email or web address] Spontaneous unlabored Yes 11/29/24 10:44 CORE [email or web address] respirations Mental status Awake 11/29/24 10:44 CORE [email or web address] nausea No 11/29/24 10:44 CORE [email or web address] Vomiting No 11/29/24 10:44 CORE [email or web address] Anesthesia Postop Eval I: Fluid Summary Crystalloid volume administer 800 11/29/24 10:44 [email or web address] (ml) Colloids volume administered ( ml) Blood Product volume administered (ml) Total IV fluid infused 800 11/29/24 10:44 CORE [email or web address] Anesthesia Postop Eval I: Summary Notes Anesthesia Complication No 11/29/24 10:44 CORE [email or web address] Anesthesia Complication Comment: Post-operative progress note Anesthesia: Postop Eval II Evaluation Mental status: Awake and Calm Pain Level: 1 nausea: No Vomiting: No Complications Anesthesia Complication: No
== END 2024-11-29 12:27 | disposition home or self-care (01) ==
LOC: SDC 07:40 → AC 07:41
PROVIDERS: PCP Internal Medicine; Referring Provider Surgery; Visit Provider Surgery
PROC: (CPT 19301; principal; 2024-11-29 08:45)
DX: C50.912 Malignant neoplasm of unspecified site of left female breast (principal); I10 Essential (primary) hypertension; I87.2 Venous insufficiency (chronic) (peripheral); F41.9 Anxiety disorder, unspecified; F32.A Depression, unspecified; J45.909 Unspecified asthma, uncomplicated; Z90.12 Acquired absence of left breast and nipple; Z90.49 Acquired absence of other specified parts of digestive tract; Z86.711 Personal history of pulmonary embolism; Z79.01 Long term (current) use of anticoagulants; Z86.718 Personal history of other venous thrombosis and embolism; Z79.899 Other long term (current) drug therapy
CPT/HCPCS: 19301; 00400; 88307; 88341; 88342; A4648; J2405

== ENCOUNTER 2024-12-31 12:07 | Outpatient (RCR) | payer MEDICARE, SELFPAY ==
--- NOTE | 2025-01-02 13:54 | HP.OTEVAL_ITS ---
Patient's Visit Information Visit Information Visit Information: PAUL BARONE is a 79 year old F, referred to Occupational Therapy by Dr. Fransisco Marquis DO, with a diagnosis of lymphedema left UE. Date of Evaluation: 12/31/24 Occupational Therapist: LUI Smith/Ronda, CHT Subjective Subjective: This 79 year old female with dx of local recurrence of cancer left breast ( Biopsy shows metastatic invasive breast cancer, ER Positive, Her2 Po sitive.)/ left UE lymphedema. pt had mastectomy in 2022 with lymph node removal 11 ( pt is unsure how many were positive) recent nodules on left chest wall - pt had removed recently. pt will initiate chemo and radiation pt states she has had swelling of left UE on and off for sometime- states she has not used a compression sleeve in the past. pt states she is typically active and her dtr lives with her. Pain left shoulder: Current Pain Intensity: 0 ROM ROM Comments: pt demo with head forward and shoulders rolled forward pt demo with bilateral shoulder flexion limitations at 120* Lymphedema (Circumferential Measure) MCP: right 19cm left 19.5cm Wrist: right 15cm left 15.5cm Lower forearm: right 17cm left 17cm Largest forearm: right 23cm left 24cm Elbow: right 25cm left 24.5cm Largest humerus: right 36 left 38cm Axcillary: right 40cm left 40cm Upper Exremity Comments: lymphedema life impact scale questioner score 29/68 Sensation Sensation Comments: pt states she feels numbness/tingling that comes and goes in her arm Goals Goal: Patient will demonstrate a 20% reduction in edema by discharge: Yes Goal: Patient will demonstrate adequate knowledge of self-massage by the end of the second week.: Yes Goal: Patient will demonstrate adequate knowledge of skin care and precautions by the end of the first week.: Yes Goal: Patient will demonstrate adequate knowledge of therapeutic exercises by discharge.: Yes Goal: Patient will select an appropriate compression garment and demonstrate adequate knowledge of correct donning technique, care and wearing schedule by discharge.: Yes Goal: Patient will voice understanding of need to replace compression garment every four to six months by discharge.: Yes Rehabilitation General Assessment: pt demo stage II lymphedema of left UE. pt demo need for skilled OT services 1-2 visits to ed. pt on life long mtg of left UE lymphedema. Today therapist ed. pt on need for compression sleeve 20-30mmHg, initiation of UE ROM ex, lymph stimulation ex. and self manual lymph massage. pt was given handouts and demo understanding and agree to POC. Rehabilitation Potential: Good Anticipated Interventions Anticipated Interventions: A/AAROM/PROM, Education re assistive Equipment, Education re Diagnosis, Education re Life-long lymphedema Management, Education re Skin Care and Precautions, Education re Self Massage Techniques and Education re Correct Donning Tech,Care&Wearing Sched Comp Garments Visit Plan General Plan: compression sleeve AROM exercises lymph stimulation exercise and self lymphatic massage TEXT: Thank you for the opportunity to evaluate your patient. For Medicare and Medicare HMO plans, please review the plan of care and approve it. It will need to be FAXED BACK to us at [phone] for Medicare purposes. Please let me know if there are questions or concerns regarding this plan of care. Physician Signature: Date:
== END 2024-12-31 19:00 | disposition home or self-care (01) ==
LOC: OT 12:07
PROVIDERS: PCP Internal Medicine; Referring Provider Student in an Organized Health Care Education/Training Program; Visit Provider Student in an Organized Health Care Education/Training Program
DX: C50.912 Malignant neoplasm of unspecified site of left female breast (principal); I89.0 Lymphedema, not elsewhere classified
CPT/HCPCS: 97166

== ENCOUNTER → 2025-01-03 | Outpatient (CLI) | payer MEDICARE, SELFPAY ==
--- NOTE | 2025-01-03 11:00 | ECHOLONC_ITS ---
Reason For Study Reason For Study: ANTINEOPLASTIC CHEMO. Procedure This was a limited 2D transthoracic echocardiogram. Myocardial strain analysis was performed in this exam to aid in the assessment of cardiac function. The study was technically difficult. Exam performed in department. Left Ventricle Normal LV size. Left ventricular systolic function is normal. The left ventricular ejection fraction is 65 %. No regional wall motion abnormalities noted. Right Ventricle Normal RV size. Normal systolic function. Atria Normal left atrium. Normal right atrium. Mitral Valve Normal mitral valve. Mild (1+) mitral valve insufficiency. Tricuspid Valve Normal tricuspid valve. Aortic Valve Normal aortic valve. Trisinus/trileaflet aortic valve. Pulmonic Valve Normal pulmonic valve. Great Vessels Normal aortic root. The pulmonary artery is normal size. Inferior vena cava collapse with respiration. Pericardium/Pleural No pericardial effusion. MMode/2D Measurements & Calculations LVIDd: 4.3 cm IVSd: 0.97 cm Ao root diam: 3.1 cm LVIDs: 3.0 cm LVPWd: 0.94 cm FS: 30.6 % asc Aorta Diam: 4.0 cm LAV(MOD-bp): 43.4 ml LVAd ap4: 23.1 cm2 LAV(MOD-bp) Indexed: 22.9 ml/m2 LVLd ap4: 7.3 cm LAV(MOD-sp2): 45.1 ml EDV(MOD-sp4): 61.3 ml LAV(MOD-sp4): 40.4 ml EDV(sp4-el): 62.3 ml LVAs ap4: 11.7 cm2 LVLs ap4: 5.9 cm ESV(MOD-sp4): 20.9 ml ESV(sp4-el): 19.9 ml EF(MOD-sp4): 65.8 % EF(sp4-el): 68.0 % LVAd ap2: 17.4 cm2 SV(MOD-sp4): 40.3 ml SV(MOD-sp2): 25.8 ml LVLd ap2: 6.7 cm SI(MOD-sp4): 21.3 ml/m2 SI(MOD-sp2): 13.6 ml/m2 EDV(MOD-sp2): 37.9 ml EDV(sp2-el): 38.5 ml LVAs ap2: 8.5 cm2 LVLs ap2: 5.4 cm ESV(MOD-sp2): 12.1 ml ESV(sp2-el): 11.2 ml EF(MOD-sp2): 68.0 % SV(sp4-el): 42.4 ml LA dimension(2D): 3.3 cm LA A4 area: 16.0 cm2 RA A4 area: 13.4 cm2 ECHO/ONC Echo, Limited Study Interpretation Summary Normal LV size. Left ventricular systolic function is normal. The left ventricular ejection fraction is 65 %. The global longitudinal strain is borderline abnormal. The global longitudinal strain = -16.2% (abnormal). Ordering Physician: Haresh Saenz Referring Physician: Michael Corcoran Performed By: Verona Olmos RDCS, RVT
== END | disposition home or self-care (01) ==
LOC: CVS 10:56
PROVIDERS: PCP Internal Medicine; Referring Provider Internal Medicine Medical Oncology; Visit Provider Internal Medicine Medical Oncology
DX: C50.212 Malignant neoplasm of upper-inner quadrant of left female breast (principal); Z79.899 Other long term (current) drug therapy; Z17.0 Estrogen receptor positive status [ER+]
CPT/HCPCS: 93308; 93356

== ENCOUNTER → 2025-04-05 | Outpatient (CLI) | payer MEDICARE, SELFPAY ==
--- NOTE | 2025-04-05 08:56 | ECHODONC_ITS ---
Reason For Study Reason For Study: Power System Operator Drug Use Procedure This was a 2D Doppler, Color Flow transthoracic echocardiogram. Myocardial strain analysis was performed in this exam to aid in the assessment of cardiac function. The patient is in sinus rhythm. The study was technically difficult. Exam performed in department. Left Ventricle Normal-sized left ventricle. The global longitudinal strain = -18.9 % (normal). Left ventricular EF by 3D: 59%. E/e' suggest normal filling pressures. No regional wall motion abnormalities noted. Right Ventricle Normal right ventricle. Normal systolic function. Unable to estimate RV systolic pressure due to insufficient tricuspid regurgitant envelope. Atria The left and right atria are normal. Estimated RA pressure: 3 mmHg. Mitral Valve Normal mitral valve. No mitral stenosis. Trace mitral regurgitation. Tricuspid Valve Normal tricuspid valve. No tricuspid stenosis. Trace tricuspid regurgitation. Aortic Valve Trileaflet valve. No hemodynamically significant aortic stenosis. No aortic regurgitation. Pulmonic Valve Normal pulmonic valve. No pulmonic stenosis. Trace pulmonic regurgitation. Great Vessels Normal sized aortic root. Normal ascending aorta. Pericardium/Pleural No pericardial effusion. MMode/2D Measurements & Calculations LVIDd: 4.5 cm IVSd: 1.0 cm Ao root diam: 3.6 cm LVIDs: 3.0 cm LVPWd: 0.84 cm RVDd: 2.9 cm FS: 34.4 % LAV(MOD-bp): 27.1 ml LVAd ap4: 19.2 cm2 SV(MOD-sp4): 27.0 ml LAV(MOD-bp) Indexed: 15.3 ml/m2 LVLd ap4: 7.1 cm SI(MOD-sp4): 15.3 ml/m2 LAV(MOD-sp2): 29.4 ml EDV(MOD-sp4): 43.5 ml LAV(MOD-sp4): 22.0 ml EDV(sp4-el): 44.2 ml LVAs ap4: 10.3 cm2 LVLs ap4: 5.7 cm ESV(MOD-sp4): 16.5 ml ESV(sp4-el): 15.8 ml EF(MOD-sp4): 62.0 % EF(sp4-el): 64.2 % SV(sp4-el): 28.4 ml LA A4 area: 10.7 cm2 LA dimension(2D): 3.0 cm RA A4 area: 9.8 cm2 Time Measurements MV dec time: 0.34 sec Doppler Measurements & Calculations MV E max chance: 52.3 cm/sec Lat Peak E' Chance: 9.4 cm/sec Med Peak E' Chance: 6.8 cm/sec MV A max chance: 76.4 cm/sec E/E' lat: 5.5 E/E' med: 7.6 MV E/A: 0.68 MV V2 max: 80.2 cm/sec MV P1/2t max chance: 61.5 cm/sec Ao V2 max: 136.6 cm/sec MV max P.6 mmHg MV P1/2t: 112.3 msec Ao max P.5 mmHg MV V2 mean: 45.1 cm/sec Ao V2 mean: 101.6 cm/sec MV mean P.93 mmHg MV dec slope: 160.3 cm/sec2 Ao mean P.6 mmHg MV V2 VTI: 21.5 cm MVA(P1/2t): 2.0 cm2 Ao V2 VTI: 28.6 cm AV (velocity ratio): 0.86 LV V1 max: 116.5 cm/sec PA V2 max: 89.6 cm/sec LV V1 max P.4 mmHg LV V1 mean P.3 mmHg LV V1 mean: 84.9 cm/sec LV V1 VTI: 24.8 cm ECHO/ONC Echo Complete Interpretation Summary The study was technically difficult. Normal left ventricular systolic function with EF greater than 55% Normal left ventricular wall motion Normal right ventricular systolic function No hemodynamically significant valvular disease Ordering Physician: Miriam Meraz Referring Physician: Miriam Meraz Performed By: Sunil Galvan RCS
== END | disposition home or self-care (01) ==
LOC: CVS 08:55
PROVIDERS: PCP Internal Medicine; Referring Provider Nurse Practitioner Family; Visit Provider Nurse Practitioner Family
DX: Z51.81 Encounter for therapeutic drug level monitoring (principal); C50.212 Malignant neoplasm of upper-inner quadrant of left female breast; Z79.899 Other long term (current) drug therapy; Z17.0 Estrogen receptor positive status [ER+]
CPT/HCPCS: 93306; 93356